=== PATIENT | male | born 1970 | race Caucasian/White ===

== ENCOUNTER 2019-10-31 15:13 | Outpatient (CLI) | payer MEDICARE, MEDICAID, SELFPAY ==
[2019-10-31 17:41] LABS: Erythrocyte Sedimentation Rate 35 mm/hr (0-10)
[2019-10-31 19:04] LABS: C Reactive Protein 6.8 mg/L (0.0-4.9)
[2019-11-20 15:38] LABS: Miscellaneous Test SEE SCANNED
[2019-11-20 15:39] LABS: Miscellaneous Test SEE SCANNED
== END 2019-10-31 15:14 | disposition home or self-care (01) ==
PROVIDERS: Family Provider Internal Medicine; PCP Internal Medicine; Visit Provider Internal Medicine Critical Care Medicine
DX: I25.5 Ischemic cardiomyopathy (principal)
CPT/HCPCS: 36415; 83516; 85651; 86140; 86431

== ENCOUNTER 2020-01-02 09:50 | Observation (INO) | payer MEDICARE, MEDICAID, SELFPAY ==
[2019-12-31 12:17] LABS: Basophils # 0.1 10^3/uL (0.0-0.1); Basophils % 0.6 %; Eosinophils # 0.2 10^3/uL (0.0-0.8); Eosinophils % 2.1 %; Hematocrit 35.6 % (42.0-52.0); Hemoglobin 11.4 g/dL (11.7-16.6); Lymphocytes # 0.8 10^3/uL (0.8-4.8); Lymphocytes % 9.1 %; Mean Corpuscular Hemoglobin 34.1 pg (28.0-34.0); Mean Corpuscular Volume 106.6 fL (80-94); Mean Platelet Volume 9.3 fL (7.4-10.4); Monocytes # 0.8 10^3/uL (0.2-0.9); Neutrophils # 6.8 10^3/uL (1.8-7.7); Nucleated Red Blood Cells % 0 %; Platelet Count 147 10^3/cmm (130-400); Red Blood Count 3.34 10^6/uL (4.1-5.3); White Blood Count 8.6 10^3/uL (4.0-10.0)
[2019-12-31 12:34] LABS: INR 1.12 (0.8-1.2)
[2019-12-31 12:42] LABS: Anion Gap 21.4 (5-19); Blood Urea Nitrogen 54 mg/dL (6-20); Carbon Dioxide 23 mmol/L (22-29); Chloride 98 mmol/L (98-107); Glomerular Filtration Rate 6.4 mL/min (90-130); Glucose 152 mg/dL (65-115); Osmolality Calculated 287 mOsm/kg (285-295); Potassium 4.4 mmol/L (3.5-5.1); Sodium 138 mmol/L (136-145)
[2020-01-02] VITALS (23 sets, daily range): BP systolic 134–163; BP diastolic 90–107; PULSE 73–95; RESP 4–24; TEMP 36.4–36.8; O2SAT 90–99; BMI 25.0
--- NOTE | 2020-01-02 07:52 | XACV_ITS ---
Ht: 178 cm Wt: 79 kg BSA: 1.98 m2 Gender: Male : 1970 Any Known Allergies: Other Exam Priority: Routine Procedure(s): Procedure Description: Diagnostic procedure Procedure Description: Left Heart Catheterization Procedure Description: Right Heart Catheterization Procedure Description: Left ventriculography Procedure Description: Cardiac Output Procedure Description: O2 saturation Procedure Description: Coronary Angiography Procedure Description: Pressure Wire Diagnostic Cath Status: Elective Diagnostic Findings No significant disease noted in the Left Main, LAD, Circumflex, or RCA coronary arteries. Coronary angiography shows right dominance. The left main is a medium caliber vessel with no significant stenotic lesions. The left anterior descending artery is a medium to large caliber vessel which appears to wrap around the left ventricular apex. The proximal LAD was found to have moderate diffuse disease of around 50 to 60%. The first diagonal artery was found to have tubular narrowing of around 40 to 50% proximally. The mid LAD was found to have a proximal stented segment which was widely patent. Around the LV apex, the artery was found to have around 40 to 50% segmental narrowing. No other significant stenotic lesions were noted. The intermedius artery is a medium to large caliber vessel with mild diffuse disease proximally. The circumflex artery is a medium caliber nondominant vessel which was found to have around 50% diffuse irregular narrowing proximally. The distal artery was found to have mild diffuse intimal irregularities. No significant stenotic lesions were noted. The right coronary artery is a medium caliber vessel which was found to have 20 to 30% diffuse irregular narrowing with no significant stenotic lesions. Conclusions This is a 49-year-old white male with history of coronary artery disease, status post PCI of the LAD, end-stage renal disease, on hemodialysis, presenting with progressive shortness of breath. Echocardiogram revealed left ventricular ejection fraction of around 30%. A repeat cardiac catheterization was recommended to reevaluate the coronary arteries and LV function, to decide on further management. Patient underwent left and right heart catheterization with a left and right coronary angiogram and LV angiogram today. Findings are as follows. Moderate diffuse disease in the proximal LAD, first diagonal and the circumflex artery. Patent stented segment of the mid LAD. Mild to moderate diffuse disease in the other vessels. The LV cavity appears to be moderately dilated. There is severe diffuse hypokinesia of the left ventricle. The LV ejection fraction was around 25 to 30%. The LVEDP was 27 mmHg. There was mild mitral regurgitation. No significant mitral valve prolapse. The right heart catheterization revealed moderate pulmonary hypertension. The PA pressure was 63/27 with a mean of 41. Pulmonary treatments pressure was 19 mmHg. The right atrial pressure was 10. Cardiac output was 4.17 with an index of 2.0. Recommendations Continue current medical management and risk factor modification. Diagnostic RX Recommendation: medical therapy and/or counseling LV EDP: 27 mmHg Ejection Fraction: 25.0 % Left Ventriculography Findings: The LV cavity appears to be moderately dilated. There is severe diffuse hypokinesia of the left ventricle. The LV ejection fraction was around 25 to 30%. The LVEDP was 27 mmHg. There was mild mitral regurgitation. No significant mitral valve prolapse. Pressures Phase:Rest AO : 108 mmHg / 76 mmHg ( 91 mmHg ) @ 4:21:00 AM 110 mmHg / 77 mmHg ( 92 mmHg ) @ 4:27:00 AM 136 mmHg / 77 mmHg ( 100 mmHg ) @ 4:31:00 AM 140 mmHg / 77 mmHg ( 102 mmHg ) @ 4:31:00 AM LV : 133 mmHg / -4 mmHg / @ 4:30:00 AM 133 mmHg / -4 mmHg / @ 4:31:00 AM 134 mmHg / -4 mmHg / @ 4:31:00 AM RV : 58 mmHg / -1 mmHg / @ 4:13:00 AM PA : 58 mmHg / 22 mmHg ( 35 mmHg ) @ 4:11:00 AM 63 mmHg / 27 mmHg ( 41 mmHg ) @ 4:12:00 AM RA : a wave = v wave = mean = 10 mmHg @ 4:13:00 AM Hemodynamic Findings Right heart catheterization was performed using a double-lumen balloon tipped catheter. The right atrial pressure was 10. RV pressure was 58/-2. The PA pressure was 63/27 with a mean of 41. Pulmonary capillary wedge pressure was 19 mmHg. Cardiac output was calculated to be 4.17 by Bg's with an index of 2.0. O2 Content Phase:Rest PA : O2 Content O2: 53.2 % @ 4::00 AM Saturations Phase:Rest AO : 91 % @ 4:21:00 AM RA : 54 % @ ::00 AM RV : 60 % @ ::00 AM PA : 53 % @ ::00 AM Cardiac Output Phase:Rest Bg : 4 l/min @ ::00 AM Bg Cardiac Index: 2 L/min/m2 @ 4:21:00 AM Valves Phase:DefaultPhase AV : 0.0 mmHg @ 9:42:35 AM AV Mean Gradient: 0.0 mmHg @ 9:42:35 AM Clinical Evaluation EBL: 5mL-10mL Procedural Details Procedure Consent Obtained. Pre-Procedure Time Out. Identified patient by full name and date of as verbalized by the patient/guarantor. Does the consent match the physician's order: Yes. Accurate & Complete Informed Consent: Yes. Inpatient/Outpatient History & Physical on Chart: Yes. If H&P is completed, is and addenduem needed: N/A; If yes, is the addendum complete: N/A. Visualize and Verify Site with Patient/Guarantor: N/A. Relevant Radiology Images available: Yes. Pre-op teaching completed and patient verbalized understanding. The risks, benefits, and alternatives of sedation and/or procedure were discussed by physician. The patient agrees to continue. Procedure started. Correct patient, site and procedure confirmed by cath team. PERRLA. Strong, equal hand profiling machine set up operator bilaterally. Lungs clear x 5 lobes. IV Fluids: 0.9% NaCl at KVO. 0 mL infused prior to lab director. Pre Procedural Pulses: bilateral dorsalis pedis was 2+. Pre Procedural Pulses: bilateral posterior tibial was 2+. Pre Procedural Pulses: bilateral radial was 3+. IV Site on Arrival: 18 gauge in the right anticubital. bilateral groins was prepped with chloroprep then draped in the usual sterile fashion. Physician notified. Equipment: 6F - Femoral. Cardiac Cath Pack. ACIST Manifold Kit Model BT 2000. Heparinized Saline (2 units/mL), 1000 mL bag. Kit, Micropuncture. pt on roomair. Baseline sample Acquired. HR: [address] Landis notified of creatinine 9.1 and potassium 3.8. Physician arrived. Physician scrubbed in. Immediate Pre-Procedure Time Out. Correct Patient: Yes; Correct Procedure: Yes; Correct Site: Yes; Correct Patient Position: Yes; Correct Supplies: Yes; Dried Flammable Prep: Yes; Blood Products Available: No;. Lidocaine 1% infiltrated to the right groin. Venous access obtained with a micropuncture set. Arterial access obtained with micropuncture set. Onida-Shantell MON catheter inserted. glidewire inserted through swan catheter. Inventory is TR Glidewire Angled .025 180cm. wire out. Onida-Shantell out. A 5 icelandic JL4 catheter in over wire. Multiple views taken of left coronary artery. pt placed on 3 lpm nc. Catheter out. A 5 icelandic JR4 catheter in over wire. Multiple views taken of right coronary artery. Catheter out. A 5 icelandic Angled Pig catheter in over wire. EDP Sample taken: LV 133/-5,28; HR: 86 BPM; SpO2: 89%. LV gram performed in COELLO @ 10 mL/second for a total of 30 mL. EDP Sample taken: LV 133/-5,28; HR: 83 BPM; SpO2: 94%. Pullback taken: LV 134/-5,28; AO 136/77(100); Mean: 0mmHg, Peak to Peak: 0mmHg, SEP: 21sec/min; HR: 82 BPM; SpO2: 96%. ACT drawn. Results 137 seconds. Therapeutic limits - pre-heparin administration 90-150 seconds and monitoring heparin during a vascular procedure >250 seconds. Catheter out. Sheath(s) sutured into position with 2-0 silk and sterile 4x4's and Op-site applied over the site. No oozing or signs and symptoms of hematoma noted. Arterial sheath flushed and connected to tranducer and pressure bag with heparinized saline. A Suture was successful obtaining hemostatsis at the Right Femoral vein insertion site. A Suture was successful obtaining hemostatsis at the Right Femoral artery insertion site. Post Procedure: Pulses reassessed and unchanged. PERRLA. Strong, equal hand profiling machine set up operator bilaterally. No VTE prophylaxis required. Medication's Wasted: Heparin = 2500 units. Medication's Wasted: Other = versed 1 mg. Medication's Wasted: Other = fentanyl 50 mg. Total IV fluids: 75 mL. Fluoro: 8:07. Contrast type used: Omnipaque 300 mgI/mL, 500 mL bottle. [id number]. Post-op diagnosis: patient stent moderate CAD pulmonary hypertension. Complications: none. Estimated blood loss: 5mL-10mL. Procedure completed. Patient transferred by bed to ICU. [facility] Clinical Fraility Score: 4: Vulnerable. Reagent Tender Helper Indications: Cardiomyopathy. Chest Pain Symptom Assessment: Atypical Angina. Cardiovascular Instability: No. Vital chart was stopped. Site: Right Femoral artery Sheath Size: 5 Fr Hemostasis Method: Suture Hemostasis Success: Successful Site: Right Femoral vein Sheath Size: 6 Fr Hemostasis Method: Suture Hemostasis Success: Successful Procedure Medications Start: 8:58 AM Stop: 8:58 AM Medication: Versed Amount: 1 mg Route: I.V. Start: 8:58 AM Stop: 8:58 AM Medication: Fentanyl Amount: 50 mcg Route: I.V. I, the attending physician, have reviewed and verified all procedure medications. Yes, all medications given per verbal order History/Risk Factors Hypertension: Yes Dyslipidemia: Yes Peripheral Arterial Disease (PAD): No Myocardial Infarction ([place]): Yes Obesity: No Renal Disease: Yes Tobacco Use: Former Dialysis: Current Prior Interventions PCI: Yes CABG: No Valve Surgery: No Date of PCI: 03/16/2015 Report Signatures Finalized by:Dr Isauro Landis MD [facility] on 01/02/2020 6:08:51 PM
[2020-01-02] MEDS: diphenhydrAMINE 50 mg Capsule PO (08:07)
--- NOTE | 2020-01-02 08:14 | PM.OPSURHP ---
Providers/Chief Complaint Admitting Physician: IONA Landis MD Primary Care Provider: Michael Eubanks DO Chief Complaint: NO DX LISTED WILL TRY TO FIND History of Present Illness Marlon Dorantes is a 49 year old male has a history of cardiomyopathy, congestive heart failure, dyslipidemia, end-stage renal disease, on hemodialysis. Etiology of the LV dysfunction is not clear. He had the most recent cardiac catheterization 2014. The findings are as follows He had the most recent a coronary angiogram on 03/16/2015. He was found to have 1-Normal LM 2-Mid LAD has 100% Occlusion. 9-Xysxanwx-1 has 40% stenosis 4-LCx has luminal irregularities 5-RCA has mid 30% stenosis , sluggish flow in RCA is due to endothelial dysfunction . He underwent PCI to mid LAD . His LV ejection fraction was found to be 30% by echocardiogram. For further evaluation of his coronary status as well as the hemodynamics, a right and left heart catheterization with right and left coronary angiogram and LV angiogram is recommended. Review of Systems Narrative: CONSTITUTIONAL: No fever or chills. EYES: No blurring of vision or other visual disturbances lately. ENT: No hoarseness of voice, auditory disturbances or sore throat. CARDIOVASCULAR: As mentioned above. RESPIRATORY: Shortness of breath and history of hemoptysis. GASTROINTESTINAL: No hematemesis or melena. GENITOURINARY: No dysuria or hematuria. INTEGUMENTARY: No skin rashes or history of skin cancer. NEURO: No transient ischemic attacks or amaurosis. PSYCHIATRIC: No history of psychosis or major depression. HEMATOLOGIC: Mild chronic anemia ENDOCRINE: No history of polyuria or polydipsia. MUSCULOSKELETAL: No recent joint pain or swelling. ALLERGY/IMMUNOLOGY: As mentioned above. Medications/Allergies Home Medications Medication Instructions Recorded Confirmed Last Taken Type calcitriol See Rx Instructions .ROUTE .COMPLEX 01/01/20 01/01/20 Unknown History clonidine HCl 0.1 mg PO DAILY PRN 01/01/20 01/01/20 Unknown History gabapentin 100 mg PO BID 01/01/20 01/01/20 Unknown History metoclopramide HCl [Reglan] 10 mg PO Q6H PRN 01/01/20 01/01/20 Unknown History Allergies Allergy/AdvReac Type Severity Reaction Status Date / Time azithromycin Allergy ADR-Chest Verified 01/01/20 15:53 Pain carvedilol AdvReac ADR-Dizzine Verified 01/01/20 15:52 ss PFSH PFSH: Medical History Atherosclerotic heart disease of [place] coronary artery without angina pectoris Benign essential hypertension Cardiomyopathy CHF NYHA class III (symptoms with mildly strenuous activities) Diabetes mellitus Dyslipidemia Fistula Left Wrist Headache Hemoptysis Mixed hyperlipidemia Nicotine dependence, cigarettes, uncomplicated Non-ST elevation (NSTEMI) myocardial infarction Surgical History H/O elbow surgery H/O hand surgery H/O neck surgery History of back surgery History of intravascular stent placement Family History Grandmother , In her 50's Myocardial infarction Father Diabetes Mother Diabetes Social History Smoking and tobacco status: former smoker Quit status (tobacco): has quit using tobacco Year quit tobacco: 1999 - 2PPD x 20 Years Alcohol intake: current Alcohol intake frequency: holidays/special occasions only Household members: spouse Marital status: Current occupational status: disabled History of recent travel: No Current gender identity: Male Vital Signs Weight: Weight last 48 hrs Weight 174 lb Physical Exam Narrative: EXAM NARRATIVE: GENERAL: The patient is alert and oriented times three. Not in any acute distress. HEENT: No significant pallor, icterus or lymphadenopathy.Oral cavity: There are no mucous membrane lesions. NECK: Trachea appears to be central. No masses noted. No JVD or thyromegaly appreciated. RESPIRATORY: Chest is symmetrical. No intercostals muscle retraction or any accessory muscle activation. There is no chest wall tenderness. Breath sounds are heard bilaterally. No rales or rhonchi heard. No evidence of any consolidation. BREASTS: Deferred. HEART: The heart sounds are normal. No S3 or S4. Short systolic murmur lower sternal border of grade 3/6. No diastolic murmurs.. No pericardial rub ABDOMEN: No vessel pulsations or distention. No tenderness. No organomegaly appreciated. Bowel sounds are normally heard. : Deferred. RECTAL: Deferred. LYMPHATIC: No lymphadenopathy noted in the neck or groin. EXTREMITIES: No edema or cyanosis. No clubbing. Peripheral pulses are palpated in fairly good volume and amplitude MUSCULOSKELETAL: No acute joint deformities or swelling SKIN: There are no significant scars or skin rash noted. NEUROPSYCHIATRIC: The patient is alert and oriented x3. Appears to be in a good mood. No tremors or rigidity noted. A&P Assessment and plan (1) Atherosclerotic heart disease of [place] coronary artery without angina pectoris: Because of the worsening LV systolic function, possibility of progression of the underlying coronary disease was considered. For further evaluation, a repeat coronary angiogram was recommended. The risk of bleeding, hematoma, vascular injury, myocardial infarction, CVA, acute renal failure and other concomitant complications were explained in detail. In view of his end-stage renal disease, he requires hemodialysis after the angiogram. I discussed the plan with Dr. Davis who is his grain and yeast plants supervisor. He recommended dialysis within 24 hours after the procedure. Status: Acute Qualifiers: [place] vs. transplanted heart: [place] heart Qualified Code(s): I25.10 - Atherosclerotic heart disease of [place] coronary artery without angina pectoris Code(s): I25.10 - Atherosclerotic heart disease of [place] coronary artery without angina pectoris (2) CHF NYHA class III (symptoms with mildly strenuous activities): Currently the heart failure is stable. No evidence of decompensation. Will continue on the current medications. Status: Acute Qualifiers: Congestive heart failure type: systolic Congestive heart failure chronicity: chronic Qualified Code(s): I50.22 - Chronic systolic (congestive) heart failure Code(s): I50.9 - Heart failure, unspecified (3) ESRD (end stage renal disease): Patient is on hemodialysis 4 times a week at home. We will continue the same. Status: Acute Code(s): N18.6 - End stage renal disease (4) Mixed hyperlipidemia: Continue on the current medications. Status: Acute Code(s): E78.2 - Mixed hyperlipidemia Additional A&P Information Based on the clinical progress and the rest was able, further management decisions will be made. Coding Level of Care Code Acute Turning And Beading Machine Operator for Ger Godfrey Diagnoses Atherosclerotic heart disease of [place] coronary artery without angina pectoris I25.10 [place] vs. transplanted heart: [place] heart CHF NYHA class III (symptoms with mildly strenuous activities) I50.22 Congestive heart failure type: systolic Congestive heart failure chronicity: chronic ESRD (end stage renal disease) N18.6 Mixed hyperlipidemia E78.2
[2020-01-02 08:39] LABS: Anion Gap 21.8 (5-19); Blood Urea Nitrogen 57 mg/dL (6-20); Calcium 9.5 mg/dL (8.5-10.5); Carbon Dioxide 25 mmol/L (22-29); Chloride 97 mmol/L (98-107); Glomerular Filtration Rate 6.2 mL/min (90-130); Glucose 133 mg/dL (65-115); Osmolality Calculated 291 mOsm/kg (285-295); Potassium 3.8 mmol/L (3.5-5.1); Sodium 140 mmol/L (136-145)
[2020-01-02] MEDS: fentaNYL 50 mcg/mL INJ 2mL IVP (10:42)
--- NOTE | 2020-01-02 11:21 | PC.NURSE ---
pulled arterial and venous sheaths at 1050 - held pressure until 1110. Pt tolerated well.
--- NOTE | 2020-01-02 13:09 | P.CONIM_ITS ---
Providers/Reason For Consult Consulting Physican/Specialty*: telenephrology Reason for Consult*: esrd care Attending Physician: Isauro Landis MD Primary Care Provider: Michael Eubanks DO History of Present Illness History of Present Illness Marlon Dorantes is a 49 year old male w/ chronic diastolic and systolic CHF- EF of 30%, ESRD, LAD disease, hyperlipidemia. Pt had cath today. he does home hemodialysis on sun, mon, wed, and tue. Dr. Davis, his district court justice wanted him to get dialysis post cath, so renal was called. Review of Systems Narrative: inc cp and sob. no n/v/f/c/hunter/d/itching, leg pains. Meds/Allergies Home Medications and Allergies Home Medications Medication Instructions Recorded Confirmed Type amlodipine 10 mg tablet 10 mg PO DAILY 10/31/19 01/02/20 History aspirin 81 mg tablet,delayed 81 mg PO DAILY 10/31/19 01/02/20 History release ferric citrate 210 mg iron tablet 420 mg PO TID 10/31/19 01/02/20 History furosemide 20 mg tablet 60 mg PO QAM tab 10/31/19 01/02/20 History gabapentin 300 mg capsule 300 mg PO TID 10/31/19 01/02/20 History nitroglycerin 0.4 mg sublingual 0.4 mg SUBLINGUAL Q5M PRN 10/31/19 01/02/20 History tablet oxycodone-acetaminophen 5 mg-325 1 tab PO BID PRN tab 10/31/19 01/02/20 History mg tablet metoprolol tartrate 50 mg tablet 50 mg PO DAILY tab 11/09/19 01/02/20 History vitamin B complex with vit C-folic 1 tab PO DAILY tab 11/09/19 01/02/20 History acid 800 mcg-zinc 12.5 mg tablet calcitriol See Rx Instructions .ROUTE .COMPLEX 01/01/20 01/02/20 History clonidine HCl 0.1 mg PO DAILY PRN 01/01/20 01/02/20 History metoclopramide HCl [Reglan] 10 mg PO Q6H PRN 01/01/20 01/02/20 History gabapentin 300 mg PO TID 01/02/20 01/02/20 History Allergies Allergy/AdvReac Type Severity Reaction Status Date / Time azithromycin Allergy ADR-Chest Verified 01/02/20 08:27 Pain carvedilol AdvReac ADR-Dizzine Verified 01/02/20 08:27 ss Current Medications Current Medications Generic Name Dose Route Start Last Admin Trade Name Krissy PRN Reason Stop Dose Admin Fentanyl 50 mcg 01/02/20 09:46 01/02/20 10:42 Sublimaze IVP 50 mcg PRN PRN Administration Prior to sheath removal Sodium Chloride 1,000 mls @ 50 mls/hr 01/02/20 07:53 01/02/20 08:16 Sodium Chloride 0.9% IV 01/03/20 03:52 Not Given .Q20H ONE Metoprolol Tartrate 50 mg 01/02/20 09:45 01/02/20 10:37 Lopressor PO Not Given DAILY JANNET PFSH Acute PFSH: Medical History Atherosclerotic heart disease of [place] coronary artery without angina pectoris Benign essential hypertension Cardiomyopathy CHF NYHA class III (symptoms with mildly strenuous activities) Diabetes mellitus Dyslipidemia Fistula Left Wrist Headache Hemoptysis Mixed hyperlipidemia Nicotine dependence, cigarettes, uncomplicated Non-ST elevation (NSTEMI) myocardial infarction Surgical History H/O elbow surgery H/O hand surgery H/O neck surgery History of back surgery History of intravascular stent placement Family History Grandmother , In her 50's Myocardial infarction Father Diabetes Mother Diabetes Social History Smoking and tobacco status: former smoker Quit status (tobacco): has quit using tobacco Year quit tobacco: 1999 - PD x 20 Years Alcohol intake: current Alcohol intake frequency: holidays/special occasions only Household members: spouse Marital status: Current occupational status: disabled History of recent travel: No Current gender identity: Male Vitals/I&O/Wt Last Vital Signs Temp 97.6 F 01/02/20 09:57 Pulse 75 01/02/20 11:30 Resp 17 01/02/20 11:30 BP 135/90 01/02/20 11:30 Pulse Ox 98 01/02/20 11:30 01/01/20 01/02/20 01/02/20 22:59 06:59 14:59 Intake Total 0 / 0 Balance 0 / 0 Weight last 48 hrs Weight 78.925 kg Physical Exam Narrative: EXAM NARRATIVE: comfortable, NARD, VSS heent- nc/at, eomi, anicteric neck supple lungs clear heart reg, w/ ROCAEL abd soft ext no edema neuro- a,a, o x 3 =LUE AVF w/ thrill and bruit A&P Additional A&P Information 49 yr old man ESRD on home HD. he is s/p cath and Dr. Landis and Ryan Schaefer wants the pt dialyzed post cath- will dialyze for 3 hrs, no heparin, 3 k and remove 1.5 l htn -consider dec meds and allow for a lower EDW- to be determined by his primary care doc, Dr. Davis- his district court justice, and Dr. Landis of cardiology Consult Attestations Medical Necessity Statement: per cardiology Time Spent in Patient Care: 16 - 35 minutes Coding Level of Care Code Acute Welding Machine Operator/Tender for Ger Godfrey
[2020-01-02 14:59] LABS: Hepatitis C Virus Antibody Non-Reactive (Nonreactive)
[2020-01-02 15:00] LABS: Hepatitis B Surface AB. 49.4 (0-8.5)
[2020-01-02 15:01] LABS: Hepatitis B Surface Antigen. Non-Reactive (Nonreactive)
[2020-01-02] MEDS: gabapentin 300 mg Capsule PO ×2 (17:49→20:37)
[2020-01-02] MEDS: oxyCODONE-APAP 5-325 mg Tablet 1 TAB PO (19:21)
[2020-01-02] MEDS: hyDRALAzine 25 mg Tablet PO (20:37)
[2020-01-03] VITALS (11 sets, daily range): BP systolic 140–156; BP diastolic 86–100; PULSE 91–99; RESP 10–22; TEMP 36.8–37.4; O2SAT 89–96
--- NOTE | 2020-01-03 03:42 | PC.NURSE ---
called Dr. Alvarado for transfer orders to [facility] because of lack of beds on CSU. Dr. Alvarado okayed for patient to be transferred to [facility] on telemetry.
[2020-01-03] MEDS: oxyCODONE-APAP 5-325 mg Tablet 1 TAB PO ×2 (04:34→17:12)
[2020-01-03] MEDS: FUROsemide 20 mg Tablet 60 MG PO (06:30)
--- NOTE | 2020-01-03 08:03 | XR_ITS ---
WS: [id number] Portable AP upright chest, 01/03/2020 Clinical Data: cp Comparison: Portable chest, 10/02/2019. Findings: There is a peripheral opacity in the right lower lung which could represent pneumonia. Ther e is a small right effusion. There is probable atelectasis over the surface of the left diaphragm. Th e pulmonary vascularity is not increased. The upper lobes are clear. No nodules or masses are seen. T he heart is enlarged. There is a radiopaque density overlying the C6 and C7 vertebral bodies which ma y represent a disc fusion. Monitor leads on the chest wall. XR/XR chest 1V portable [id number] Impression: 1. Peripheral right lower lobe opacity which could represent pneumonia along wi th small right effusion. 2. Probable atelectasis or possible early pneumonia over surface of left diaphr agm. 3. Cardiomegaly.
[2020-01-03] MEDS: gabapentin 300 mg Capsule PO ×3 (08:07→20:27)
[2020-01-03] MEDS: aspirin 81 mg EC Tablet PO (08:07)
[2020-01-03] MEDS: hyDRALAzine 25 mg Tablet PO ×3 (08:07→20:26)
[2020-01-03] MEDS: metoprolol tartrate 50 mg Tablet PO (08:07)
--- NOTE | 2020-01-03 09:09 | PC.NURSE ---
pt c/o cp this morning rating 7/[address]. chest xray and labs ordered. vs stable. bp 148/93.
[2020-01-03 09:23] LABS: Blood Urea Nitrogen 39 mg/dL (6-20); Carbon Dioxide 25 mmol/L (22-29); Chloride 96 mmol/L (98-107); Glomerular Filtration Rate 7.5 mL/min (90-130); Glucose 110 mg/dL (65-115); Osmolality Calculated 280 mOsm/kg (285-295); Sodium 136 mmol/L (136-145)
--- NOTE | 2020-01-03 10:40 | PM.PN ---
Subjective Subjective: Interval history: He has some chest discomfort today; no SOB, no uremic Sx, dialyzed yesterday. Vitals/I&O/Wt Last Vital Signs Temp 98.3 F 01/03/20 07:19 Pulse 99 01/03/20 07:19 Resp 18 01/03/20 07:19 BP 148/93 01/03/20 07:19 Pulse Ox 92 01/03/20 07:19 01/02/20 01/03/20 01/03/20 22:59 06:59 14:59 Intake Total 480 / 480 0 / 480 Output Total 250 / 250 Balance 480 / 480 -250 / 230 Weight last 48 hrs Weight 78.925 kg Physical Exam Narrative: EXAM NARRATIVE: comfortable, NARD, VSS heent- nc/at, eomi, anicteric neck supple lungs clear heart reg, w/ ROCAEL abd soft ext no edema neuro- a,a, o x 3 =LUE AVF w/ thrill and bruit Extremity: RIGHT UPPER EXTREMITY: Yes wrist (Well-functioning right radiocephalic fistula) Data : 12/31/19 12:05 01/03/20 08:49 A&P Additional A&P Information 1. ESRD - if he remains in house tomorrow will dialzye him but we anticipate that he will be discharged 2. Hemodynamics, lytes, anemia, bone metabolism of ESRD - all reviewed, stable parameters, follow up in outpatient dialysis clinic 3. CAD; angiogram performed, mgmt per cardiology, Dr Landis Attcandy Medical Necessity Statement*: mgmt of ESRD Coding Level of Care Code Acute Senior Electrical Project Manager for Chg Fwd Exam Problem Focused
--- NOTE | 2020-01-03 11:57 | PC.CHAP ---
Pastoral Care Encounter/Spiritual Assessment Type of Contact [] Declined collections technician visit [] Patient/Family/Request visit [] Outpatient visit [] Follow-up visit [] Physician referral [] Code/Alert [x] Routine visit [] Staff referral [] Actively dying [] Patient sleeping [] Family support [] [] Out of room [] Palliative care [] [] Receiving care in room [] Pre-surgical visit [] Trauma [] Long length of stay [] ICU visit [] Other: Relational/Emotional Strength [x] Patient feels connected with others/family/visitors/staff [] Distress [] Loneliness/isolation [] Abandonment Spirituality of Patient [] Person of Ashley [] Attends Religious of their Ashley [] Believes in Prayer [] Reads Bible or Taoist materials [x] There are Spiritual issues to be addressed Self Defense Instructor Interventions [x] Prayer [x] Active listening [x] Non-anxious presence [x] Spiritual/emotional support [] Crisis/trauma care [x] Spiritual counseling [] Bereavement support [] Provided bereavement packet [] Provided Bible/devotional materials [] Provided toy/stuffed animal, coloring book to patient or family member [] Provided Communion [] Anointing/[place] [] Salvation [] Completed spiritual assessment [] Other: Impact on Illness or Injury [] Angry [] Fearful [] Anxious [] Often cries [] Exhaustion [] Unable to work [] Unable to attend anglican [] Unable to walk/stand [] Unable to read [] Unable to drive [] Unable to eat/drink [] Unable to sleep [] Unable to be with family [] Patient intubated [x] Other: Summary Patient demonstrated knowledge of the Lord and sought greater understanding. The Gospel of [place] was given. Time spent with patient 25 minutes
--- NOTE | 2020-01-03 15:50 | P.PN_ITS ---
Subjective Subjective: Interval history: Patient is complaining of pleuritic type of pain in the right chest. He has a cough and shortness of breath. Patient seems to think that he may have pneumonia. He has no fever or chills. His vital signs are fairly stable. His oxygen saturation is relatively low-has been 89-92 over the last 6 hours Medications: Reviewed: Yes Medication Review Details: Current Medications Alprazolam (Xanax) 0.25 mg PO TID PRN PRN Reason: ANXIETY Amlodipine Besylate (Norvasc) 10 mg PO DAILY COUNTS INCLUDE 234 BEDS AT THE [facility] Last Admin: 01/03/20 08:09 Dose: Not Given Documented by: Amoxicillin/Clavulanate Potassium (Augmentin 875-125 Mg) 1 tab PO BID COUNTS INCLUDE 234 BEDS AT THE [facility]; Protocol Stop: 01/10/20 17:59 Aspirin (Aspirin Ec) 81 mg PO DAILY COUNTS INCLUDE 234 BEDS AT THE [facility] Last Admin: 01/03/20 08:07 Dose: 81 mg Documented by: Atropine Sulfate (Atropine) 0.5 mg IVP PRN PRN PRN Reason: Symptomatic bradycardia Clonidine HCl (Catapres) 0.1 mg PO DAILY PRN PRN Reason: Hypertension Fentanyl (Sublimaze) 50 mcg IVP PRN PRN PRN Reason: Prior to sheath removal Last Admin: 01/02/20 10:42 Dose: 50 mcg Documented by: Furosemide (Lasix) 60 mg PO QAM COUNTS INCLUDE 234 BEDS AT THE [facility] Last Admin: 01/03/20 06:30 Dose: 60 mg Documented by: Gabapentin (Neurontin) 300 mg PO TID COUNTS INCLUDE 234 BEDS AT THE [facility] Last Admin: 01/03/20 15:06 Dose: 300 mg Documented by: Hydralazine HCl (Apresoline) 25 mg PO TID COUNTS INCLUDE 234 BEDS AT THE [facility] Last Admin: 01/03/20 15:06 Dose: 25 mg Documented by: Metoclopramide HCl (Reglan) 10 mg PO Q6H PRN PRN Reason: Nausea Metoprolol Tartrate (Lopressor) 50 mg PO DAILY COUNTS INCLUDE 234 BEDS AT THE [facility] Last Admin: 01/03/20 08:07 Dose: 50 mg Documented by: Naloxone HCl (Narcan) 0.1 mg IVP Q2M PRN PRN Reason: RESPIRATORY RATE < 8/MIN Nitroglycerin (Nitrostat) 0.4 mg SUBLINGUAL Q5M PRN PRN Reason: Pain Non-Formulary Medication (Ferric Citrate [Auryxia]) 420 mg PO TID COUNTS INCLUDE 234 BEDS AT THE [facility] Non-Formulary Medication (Vit B Fnqfows-G-Aibkk Ac-Zinc [Renaplex]) 1 tab PO DAILY JANNET Oxycodone/Acetaminophen (Percocet 5-325 Mg) 1 tab PO BID PRN PRN Reason: Pain Last Admin: 01/03/20 04:34 Dose: 1 tab Documented by: Temazepam (Restoril) 15 mg PO BEDTIME PRN PRN Reason: INSOMNIA Vitals/I&O/Wt Last Vital Signs Temp 99.4 F 01/03/20 15:25 Pulse 95 01/03/20 15:25 Resp 20 H 01/03/20 10:50 BP 154/91 01/03/20 15:25 Pulse Ox 90 01/03/20 15:25 01/03/20 01/03/20 01/03/20 06:59 14:59 22:59 Intake Total 0 / 480 360 / 360 Output Total 250 / 250 Balance -250 / 230 360 / 360 Weight last 48 hrs Weight 174 lb Physical Exam Narrative: EXAM NARRATIVE: GENERAL: The patient is alert and oriented times three. Not in any acute distress. HEENT: No significant pallor, icterus or lymphadenopathy.Oral cavity: There are no mucous membrane lesions. NECK: Trachea appears to be central. No masses noted. No JVD or thyromegaly appreciated. RESPIRATORY: Chest is symmetrical. No intercostals muscle retraction or any accessory muscle activation. There is no chest wall tenderness. Breath sounds are heard bilaterally. No rales or rhonchi heard. No evidence of any consolidation. BREASTS: Deferred. HEART: The heart sounds are normal. No S3 or S4. Systolic murmur of grade 3/6 in the left sternal border. No diastolic murmurs. No pericardial rub. ABDOMEN: No vessel pulsations or distention. No tenderness. No organomegaly appreciated. Bowel sounds are normally heard. : Deferred. RECTAL: Deferred. LYMPHATIC: No lymphadenopathy noted in the neck or groin. EXTREMITIES: No edema or cyanosis. No clubbing. Right groin has no hematoma or bleeding MUSCULOSKELETAL: No acute joint deformities or swelling SKIN: No significant rashes NEUROPSYCHIATRIC: The patient is alert and oriented x3. Appears to be in a good mood. No tremors or rigidity noted. Data : 12/31/19 12:05 01/03/20 08:49 CXR: Radiologist's impression: 1. Peripheral right lower lobe opacity which could represent pneumonia along with small right effusion. 2. Probable atelectasis or possible early pneumonia over surface of left diaphragm. 3. Cardiomegaly. A&P Assessment and plan (1) Right-sided chest pain: Etiology is unclear. Possible pneumonia. Pulmonary embolism is a consideration. Relatively low oxygen level with no fever may suggest a PE. However he also is complaining of sore throat may suggest a viral syndrome as well. I discussed the case with Dr. Macias. It may be appropriate at this time to do a VQ scan to further evaluate for possible PE. Dr. Macias also recommended empiric antibiotic treatment for possible pneumonia We will do a CBC Status: Acute Code(s): R07.9 - Chest pain, unspecified (2) Atherosclerotic heart disease of [place] coronary artery without angina pectoris: Cardiac catheterization n findings as mentioned in the report. He has moderate disease in the proximal segment of all the 3 coronary arteries. Moderate pulmonary hypertension with a mean PA pressure of 41 mmHg Status: Acute Qualifiers: [place] vs. transplanted heart: [place] heart Qualified Code(s): I25.10 - Atherosclerotic heart disease of [place] coronary artery without angina pectoris Code(s): I25.10 - Atherosclerotic heart disease of [place] coronary artery without angina pectoris (3) Hemoptysis: No recurrence of hemoptysis in the hospital. Dr. Troy is considering a lung biopsy. Status: Acute Code(s): R04.2 - Hemoptysis (4) ESRD (end stage renal disease): Patient is on hemodialysis 4 times a week. May require a repeat dialysis tomorrow Status: Acute Code(s): N18.6 - End stage renal disease (5) Cardiomyopathy: Patient seems to have some form of nonischemic cardiomyopathy. May require furhter evaluation Status: Acute Qualifiers: Cardiomyopathy type: ischemic Qualified Code(s): I25.5 - Ischemic cardiomyopathy Code(s): I42.9 - Cardiomyopathy, unspecified (6) Pulmonary hypertension: Continue the amlodipine for the time being Status: Acute Code(s): I27.20 - Pulmonary hypertension, unspecified Additional A&P Information Because of the patient's hypoxia, and possible pneumonia, we may hold the discharge today. Dr. Macias will be reevaluating the patient in the morning and then decide on his disposition Attestations Medical Necessity Statement*: Patient requires continued hospital stay for close monitoring and further management Coding Level of Care Code Acute Stove Mounter for Chg Fwd Diagnoses Right-sided chest pain R07.9 Atherosclerotic heart disease of [place] coronary artery without angina pectoris I25.10 [place] vs. transplanted heart: [place] heart Hemoptysis R04.2 ESRD (end stage renal disease) N18.6 Cardiomyopathy I25.5 Cardiomyopathy type: ischemic Pulmonary hypertension I27.20
--- NOTE | 2020-01-03 17:04 | NMR_ITS ---
PROCEDURE INFORMATION: Exam: [facility] Exam date and time: 01/03/2020 6:12 PM Age: 49 years old Clinical indication: Pain and abnormal findings; Abnormal radiologic exam of lung or chest; Chest pain; Additional info: Shortness of bresth with pleuritic chest pain TECHNIQUE: Imaging protocol: Nuclear pulmonary ventilation with aerosol or gas was performed followed by perfusion. Views: Ventilation acquired with multiple projections. Perfusion acquired with multiple projections. Radiopharmaceutical: 36.2 mCi of Tc-99m DTPA, inhaled. 5.3 mCi of Tc-99m MAA, IV. COMPARISON: CR XR chest 1V portable [id number] 01/03/2020 8:33 AM FINDINGS: Ventilation: Ventilation images do not reveal significant defects. Perfusion: A recent chest radiograph reveals hazy opacity in the lateral right lung base and slightly in the left lung base. There is a small to moderate mismatched perfusion defect in the superior segment of the left lower lobe. NM/NM pul vent and perfus* [id number] IMPRESSION: Low probability for PE
--- NOTE | 2020-01-03 17:10 | P.CONIM_ITS ---
Providers/Reason For Consult Consulting Physican/Specialty*: Pulmonary and critical care medicine Reason for Consult*: Concern for pneumonia Attending Physician: Isauro Landis MD Primary Care Provider: Michael Eubanks DO History of Present Illness History of Present Illness Marlon Dorantes is a 49 year old male who is well-known to me from before. The patient has ESRD and is on home dialysis. He also has history of coronary artery disease, myocardial infarction and cardiomyopathy. I had evaluated the patient in the past for chronic hemoptysis for more than a year. 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 The patient had an extensive antibody work-up in the past and I had ordered a new one in October of this year that had all been negative. The patient had seen Dr. Troy for lung biopsy. Dr. Troy wanted him to follow-up with the cardiology team for evaluation of the cardiomyopathy and make sure there is no intervention that is necessary prior to performance of the procedure. Cardiac catheterization data: The patient underwent cardiac catheterization on January 01. He underwent both right and left heart cath. The left heart catheterization did not show any significant disease in the left main, left anterior descending, circumflex or right coronary arteries. The patient has right dominant coronary artery circulation. His LV cavity was moderately dilated. Estimated ejection fraction was 25 to 30%. His left ventricular end- diastolic pressure was 27 which would be also the pulmonary capillary wedge pressure. His pulmonary artery pressures were elevated at 63/27 with a mean pressure of 41. With a transpulmonary gradient of 13 and the diastolic pressure gradient of 1. His cardiac output was 4.17 with an index of 2. The patient was admitted to the hospital with right-sided pleuritic chest pain. The patient gives history of no fever however he did have some sore throat, nausea runny nose postnasal drip and cough. He is coughing up some white sputum but no purulence and no worsening of hemoptysis. The patient is on opioid pain medication for pain control. Radiologic data: The patient has bilateral pleural effusion. There is a right lower zone density however I do not see any air bronchogram within the density. Laboratory data: Not available from today. Review of Systems Narrative: General: No fevers chills night sweats or fatigue Skin: No rash HEENT: Mild nasal congestion, postnasal drip. There is no blurred vision, double vision, redness of the eye or visual loss. There is no oral ulcer or dry mouth. Mild sore throat. Neck: There is no neck swelling, mass or swollen glands. Respiratory: Please see my HPI. Cardiovascular: No chest pain, resting shortness of breath, orthopnea, proximal nocturnal dyspnea, palpitation or significant lower extremity edema. Gastrointestinal: No abdominal pain, nausea, vomiting, melena or symptoms suggestive of GERD. Musculoskeletal: No joint pain or swelling, muscle weakness, morning stiffness, numbness or tingling. Neurological: Patient is awake alert and oriented x3, no paralysis, gross motor function is normal. Psychiatric: No anxiety or depression. Meds/Allergies Home Medications and Allergies Home Medications Medication Instructions Recorded Confirmed Type amlodipine 10 mg tablet 10 mg PO DAILY 10/31/19 01/02/20 History aspirin 81 mg tablet,delayed 81 mg PO DAILY 10/31/19 01/02/20 History release ferric citrate 210 mg iron tablet 420 mg PO TID 10/31/19 01/02/20 History furosemide 20 mg tablet 60 mg PO QAM tab 10/31/19 01/02/20 History gabapentin 300 mg capsule 300 mg PO TID 10/31/19 01/02/20 History nitroglycerin 0.4 mg sublingual 0.4 mg SUBLINGUAL Q5M PRN 10/31/19 01/02/20 History tablet oxycodone-acetaminophen 5 mg-325 1 tab PO BID PRN tab 10/31/19 01/02/20 History mg tablet metoprolol tartrate 50 mg tablet 50 mg PO DAILY tab 11/09/19 01/02/20 History vitamin B complex with vit C-folic 1 tab PO DAILY tab 11/09/19 01/02/20 History acid 800 mcg-zinc 12.5 mg tablet calcitriol See Rx Instructions .ROUTE .COMPLEX 01/01/20 01/02/20 History clonidine HCl 0.1 mg PO DAILY PRN 01/01/20 01/02/20 History metoclopramide HCl [Reglan] 10 mg PO Q6H PRN 01/01/20 01/02/20 History gabapentin 300 mg PO TID 01/02/20 01/02/20 History Allergies Allergy/AdvReac Type Severity Reaction Status Date / Time azithromycin Allergy ADR-Chest Verified 01/02/20 08:27 Pain carvedilol AdvReac ADR-Dizzine Verified 01/02/20 08:27 ss Current Medications Current Medications Generic Name Dose Route Start Last Admin Trade Name Freq PRN Reason Stop Dose Admin Amlodipine Besylate 10 mg 01/03/20 09:00 01/03/20 08:09 Norvasc PO Not Given DAILY JANNET Aspirin 81 mg 01/03/20 09:00 01/03/20 08:07 Aspirin Ec PO 81 mg DAILY JANNET Administration Fentanyl 50 mcg 01/02/20 09:46 01/02/20 10:42 Sublimaze IVP 50 mcg PRN PRN Administration Prior to sheath removal Furosemide 60 mg 01/03/20 06:00 01/03/20 06:30 Lasix PO 60 mg QAM JANNET Administration Gabapentin 300 mg 01/02/20 15:00 01/03/20 15:06 Neurontin PO 300 mg TID JANNET Administration Hydralazine HCl 25 mg 01/02/20 21:00 01/03/20 15:06 Apresoline PO 25 mg TID JANNET Administration Metoprolol Tartrate 50 mg 01/02/20 09:45 01/03/20 08:07 Lopressor PO 50 mg DAILY JANNET Administration Oxycodone/Acetaminophen 1 tab 01/02/20 09:42 01/03/20 04:34 Percocet 5-325 Mg PO 1 tab BID PRN Administration Pain PFSH Acute PFSH: Medical History Atherosclerotic heart disease of [place] coronary artery without angina pectoris Benign essential hypertension Cardiomyopathy CHF NYHA class III (symptoms with mildly strenuous activities) Diabetes mellitus Dyslipidemia Fistula Left Wrist Headache Hemoptysis Mixed hyperlipidemia Nicotine dependence, cigarettes, uncomplicated Non-ST elevation (NSTEMI) myocardial infarction Pulmonary hypertension Surgical History H/O elbow surgery H/O hand surgery H/O neck surgery History of back surgery History of intravascular stent placement Family History Grandmother , In her 50's Myocardial infarction Father Diabetes Mother Diabetes Social History Smoking and tobacco status: former smoker Quit status (tobacco): has quit using tobacco Year quit tobacco: 1999 - 2PPD x 20 Years Alcohol intake: current Alcohol intake frequency: holidays/special occasions only Household members: spouse Marital status: Current occupational status: disabled History of recent travel: No Current gender identity: Male Vitals/I&O/Wt Last Vital Signs Temp 99.4 F 01/03/20 15:25 Pulse 95 01/03/20 15:25 Resp 20 H 01/03/20 10:50 BP 154/91 01/03/20 15:25 Pulse Ox 90 01/03/20 15:25 01/03/20 01/03/20 01/03/20 06:59 14:59 22:59 Intake Total 0 / 480 360 / 360 Output Total 250 / 250 Balance -250 / 230 360 / 360 Weight last 48 hrs Weight 174 lb Physical Exam Narrative: EXAM NARRATIVE: General: Patient is awake alert and oriented, in no distress. Resting comfortably HEENT: Pupil bilateral symmetric, light and accommodation reflex present, extraocular muscle movement intact, no deformity of the nose, mildly congested nasal mucosa, no paleness noted, no bleeding, intact nasal septum, no tenderness of the frontal and maxillary sinuses. External auditory canal appears normal, mild wax noted, visible tympanic membrane is intact. Oral mucosa is moist, no pharyngeal erythema or cobblestoning. Neck: No JVD, no cervical or supraclavicular lymphadenopathy. Respiratory: Inspection: No visible deformity of the chest wall Palpation: Trachea is mildly deviated to the right, bilateral symmetric expansion, bilateral symmetric vocal fremitus present except posteriorly bilaterally Percussion: Bilateral tympanic percussion note both anterior and posteriorly except posteriorly bilaterally at the very bottom of the examination field Auscultation: Bilateral fine crackles at the bases, no wheezing or rhonchi Cardiovascular: Regular rate and rhythm, S1-S2 present, no murmur, no right ventricular heave, no peripheral edema. Abdomen: Soft, nontender, nondistended, positive bowel sound. No palpable organomegaly. Musculoskeletal: No obvious joint deformity Skin: No rash, no evidence of erythema nodosum or multiforme. Neuro: Mental status is normal, no gross cranial nerve deficit, normal motor and coordination. Data Other Data: Other data: Please see my HPI. A&P Assessment and plan (1) Pneumonia: The patient has radiographic right lower lobe infiltrate and pleuritic chest pain. This is consistent with a diagnosis of community-acquired pneumonia. A significant number of community-acquired pneumonia cases are secondary to a viral infection. The patient does not have the clinical presentation of influenza. He is afebrile, not requiring oxygen supplementation, able to take oral antibiotic. I am going to obtain a CBC and a procalcitonin level. I am starting the patient on Augmentin. There is a concern whether this could be a pulmonary embolus especially given the lack of air bronchogram in the right lower lobe infiltrate and pleuritic chest pain. We are getting a ventilation perfusion scan as the patient has ESRD with residual urine production. And he got contrast the day prior from the cardiac catheterization. Status: Acute Code(s): J18.9 - Pneumonia, unspecified organism (2) Hemoptysis: The patient has undergone extensive evaluation for hemoptysis in the past including an extensive autoimmune work-up. There is a significant concern for whether he has pulmonary renal syndrome. The patient is going to follow-up with Dr. Troy for lung biopsy. Status: Acute Code(s): R04.2 - Hemoptysis (3) Cardiomyopathy: The patient did not have any evidence of significant coronary artery disease. He has global hypokinesis. I have discussed this with Dr. Landis, there is a possibility that this could be secondary to vasculitic disease that is also affecting his kidneys and his lungs. We will consider doing a cardiac MRI once the patient is out of the hospital. I am going to follow-up with the patient tomorrow he is likely to be discharged tomorrow. Status: Acute Qualifiers: Cardiomyopathy type: ischemic Qualified Code(s): I25.5 - Ischemic cardiomyopathy Code(s): I42.9 - Cardiomyopathy, unspecified Coding Level of Care Code Acute Wireless Development Manager for [facility] Diagnoses Pneumonia J18.9 Hemoptysis R04.2 Cardiomyopathy I25.5 Cardiomyopathy type: ischemic
[2020-01-03] MEDS: amoxicillin-clav 875-125 mg Tablet 1 TAB PO (17:12)
[2020-01-03 17:41] LABS: Basophils # 0.1 10^3/uL (0.0-0.1); Eosinophils # 0.1 10^3/uL (0.0-0.8); Eosinophils % 1.9 %; Hematocrit 34.2 % (42.0-52.0); Hemoglobin 10.8 g/dL (11.7-16.6); Lymphocytes # 0.8 10^3/uL (0.8-4.8); Lymphocytes % 11.7 %; Mean Corpuscular HGB Conc 31.6 g/dL (30.0-36.0); Mean Corpuscular Hemoglobin 32.8 pg (28.0-34.0); Mean Platelet Volume 9.8 fL (7.4-10.4); Monocytes # 0.8 10^3/uL (0.2-0.9); Neutrophils # 5.1 10^3/uL (1.8-7.7); Neutrophils % 74.3 %; Nucleated Red Blood Cells % 0 %; Platelet Count 145 10^3/cmm (130-400); Red Blood Count 3.29 10^6/uL (4.1-5.3); Red Cell Distribution Width 14.2 % (12.1-15.1); White Blood Count 6.8 10^3/uL (4.0-10.0)
[2020-01-03 18:13] LABS: Procalcitonin 0.51 ng/mL (0-0.5)
[2020-01-03] MEDS: FUROsemide 10 mg/mL SDV 4mL 40 MG IVP (18:22)
[2020-01-03 18:31] LABS: Basophils % 0.5 %; Eosinophils # 0.1 10^3/uL (0.0-0.8); Hematocrit 33.9 % (42.0-52.0); Hemoglobin 10.8 g/dL (11.7-16.6); Lymphocytes # 0.9 10^3/uL (0.8-4.8); Lymphocytes % 10.7 %; Mean Corpuscular HGB Conc 31.9 g/dL (30.0-36.0); Mean Corpuscular Hemoglobin 32.9 pg (28.0-34.0); Mean Corpuscular Volume 103.4 fL (80-94); Mean Platelet Volume 9.3 fL (7.4-10.4); Monocytes # 0.9 10^3/uL (0.2-0.9); Monocytes % 10.6 %; Neutrophils # 6.2 10^3/uL (1.8-7.7); Nucleated Red Blood Cells % 0 %; Platelet Count 150 10^3/cmm (130-400); Red Blood Count 3.28 10^6/uL (4.1-5.3); Red Cell Distribution Width 14.3 % (12.1-15.1)
[2020-01-04] VITALS (7 sets, daily range): BP systolic 133–156; BP diastolic 79–102; PULSE 85–98; RESP 18–20; TEMP 36.4–37.1; O2SAT 90–93
[2020-01-04] MEDS: FUROsemide 20 mg Tablet 60 MG PO (06:28)
[2020-01-04] MEDS: oxyCODONE-APAP 5-325 mg Tablet 1 TAB PO (07:36)
[2020-01-04] MEDS: aspirin 81 mg EC Tablet PO (07:37)
[2020-01-04] MEDS: metoprolol tartrate 50 mg Tablet PO (07:37)
[2020-01-04] MEDS: amoxicillin-clav 875-125 mg Tablet 1 TAB PO ×2 (07:37→17:22)
[2020-01-04] MEDS: gabapentin 300 mg Capsule PO ×2 (07:37→15:26)
[2020-01-04] MEDS: hyDRALAzine 25 mg Tablet PO ×2 (07:37→15:26)
--- NOTE | 2020-01-04 14:16 | PM.PN ---
Subjective Subjective: Interval history: feels well, s/p HD today Medications: Reviewed: Yes Vitals/I&O/Wt Last Vital Signs Temp 98.7 F 01/04/20 07:11 Pulse 98 01/04/20 07:11 Resp 18 01/04/20 07:36 BP 156/102 01/04/20 07:11 Pulse Ox 91 01/04/20 07:11 01/03/20 01/04/20 01/04/20 22:59 06:59 14:59 Intake Total 440 / 800 340 / 340 Output Total 210 / 210 Balance 440 / 800 -210 / 590 340 / 340 Physical Exam Const: COMMON NORMALS: no apparent distress Neck/C-Spine: COMMON NORMALS: no JVD Resp: COMMON NORMALS: clear to auscultation bilaterally AUSCULTATION: clear to auscultation bilaterally Cardio: COMMON NORMALS: no JVD, regular rate and regular rhythm RATE: regular rate RHYTHM: regular rhythm Extremity: COMMON NORMALS: no pedal edema NARRATIVE EXTREMITY EXAM: Left forearm AVF Data : 01/03/20 18:15 01/03/20 08:49 A&P Additional A&P Information ESRD s/p HD today, s/p cardiac cath on Home hemodialysis 4x weekly. His plan is to dialyze on Tuesday Has follow-up scheduled with nephrology and pulmonary (lung biopsy for possible vasculitis) Attestations Medical Necessity Statement*: per primary service Coding Level of Care Code Acute Hot Plate Plywood Press Operator for [facility]
--- NOTE | 2020-01-04 16:19 | PM.DCS ---
Discharge Providers Date of Admission: 01/02/20 09:50 Date of Discharge: January 04, 2020 Attending Provider at Admission: Isauro Landis MD Attending Provider at Discharge: Isauro Landis MD Primary Care Provider: Michael Eubanks DO Diagnoses at Discharge Discharge Diagnosis (1) Pneumonia: Status: Acute (2) Hemoptysis: Status: Acute (3) Cardiomyopathy: Status: Acute Qualifiers: Cardiomyopathy type: ischemic Qualified Code(s): I25.5 - Ischemic cardiomyopathy (4) COPD (chronic obstructive pulmonary disease): Status: Acute (5) Atherosclerotic heart disease of [place] coronary artery without angina pectoris: Status: Acute Qualifiers: [place] vs. transplanted heart: [place] heart Qualified Code(s): I25.10 - Atherosclerotic heart disease of [place] coronary artery without angina pectoris (6) Mixed hyperlipidemia: Status: Acute (7) Dyslipidemia: Status: Acute (8) ESRD (end stage renal disease): Status: Acute (9) CHF NYHA class III (symptoms with mildly strenuous activities): Status: Acute Qualifiers: Congestive heart failure type: systolic Congestive heart failure chronicity: chronic Qualified Code(s): I50.22 - Chronic systolic (congestive) heart failure (10) Right-sided chest pain: Status: Acute (11) Pulmonary hypertension: Status: Acute (12) Benign essential hypertension: Status: Acute (13) Diabetes mellitus: Status: Acute (14) Nicotine dependence, cigarettes, uncomplicated: Status: Acute (15) History of intravascular stent placement: Status: Acute Reason for Visit Reason for Visit: Reason For Visit: NO DX LISTED WILL TRY TO FIND Brief History: Patient was admitted by Dr. Landis for purposes of right and left heart catheterization. Hospital Course Discharge Summary: He underwent coronary angiography which was basically normal. The previously placed LAD stent is patent. He has a dilated cardiomyopathy with an ejection fraction of about 25%. Right heart catheterization was performed. The pulmonary artery pressure was 63/27. Patient experienced pleuritic right-sided chest pain after the angiogram which persists to some degree. Pulmonary medicine saw him. The diagnosis of pneumonia was made. He has been on Augmentin since that time. His other medications were continued as prescribed at home. The right femoral artery and right femoral vein entry sites were unremarkable at the time of discharge. No bleeding, hematoma or other vascular anomaly was noted. Patient has had hemoptysis for several months without an etiology. He has had a bronchoscopy which did not reveal a diagnosis. He is scheduled for a lung biopsy in the near future. Physical Exam Narrative: EXAM NARRATIVE: GENERAL: In general he is comfortable sitting upright HEENT: Exam within normal limits. NECK: Supple without jugular vein distention. The carotid upstroke is normal without bruits. BACK: Exam normal. LUNGS: Clear. HEART: Regular rate and rhythm. ABDOMEN: Benign without organomegaly or tenderness. EXTREMITIES: No edema. NEUROLOGIC: Exam normal. SKIN: Unremarkable. Discharge Data Data Completed and Pending: Completed Studies During Hospitalization Category Date Time Status VAN LOADER request for service Routin e Exams 01/02/20 07:52 Completed XR chest 1V melva ble [id number] Stat Exams 01/03/20 08:03 Completed NM pul vent and p erfus* [id number] Urgen t Nuc Med 01/03/20 17:04 Completed Labs from last 24 hours 01/03/20 01/03/20 01/03/20 18:15 17:40 08:49 WBC 8.0 6.8 RBC 3.28 L 3.29 L Hgb 10.8 L 10.8 L Hct 33.9 L 34.2 L MCV 103.4 H 104.0 H MCH 32.9 32.8 MCHC 31.9 31.6 RDW 14.3 14.2 Plt Count 150 145 MPV 9.3 9.8 Neut % (Auto) 77.0 74.3 Lymph % (Auto) 10.7 11.7 [place] % (Auto) 10.6 11.0 Eos % (Auto) 1.0 1.9 Baso % (Auto) 0.5 1.0 Neut # (Auto) 6.2 5.1 Lymph # (Auto) 0.9 0.8 [place] # (Auto) 0.9 0.8 Eos # (Auto) 0.1 0.1 Baso # (Auto) 0.0 0.1 Nucleated RBC % (a uto) 0 0 Nucleated RBCs # 0.0 0.0 Procalcitonin 0.51 H Vitals: Last Vital Signs Temp 98.1 F 01/04/20 15:36 Pulse 91 01/04/20 15:36 Resp 18 01/04/20 15:36 BP 141/79 01/04/20 15:36 Pulse Ox 90 03/13/20 15:36 Discharge Plan Discharge Patient Disposition: Home, Self-Care Condition: Stable Prescriptions: New amoxicillin-pot clavulanate 875-125 mg Tablet 1 tab PO BID Qty: 14 RF: 0 Continued oxycodone-acetaminophen 5-325 mg tablet 1 tab PO BID PRN (Reason: Pain) RF: 0 aspirin 81 mg tablet,delayed release (DR/EC) 81 mg PO DAILY RF: 0 nitroglycerin [Nitrostat] 0.4 mg tablet, sublingual 0.4 mg SUBLINGUAL Q5M PRN (Reason: Pain) RF: 0 furosemide [Lasix] 20 mg tablet 60 mg PO QAM RF: 0 gabapentin 300 mg capsule 300 mg PO TID RF: 0 Auryxia 210 mg iron tablet 420 mg PO TID RF: 0 amlodipine 10 mg tablet 10 mg PO DAILY RF: 0 metoprolol tartrate 50 mg tablet 50 mg PO DAILY RF: 0 RenaPlex 800 mcg- 12.5 mg tablet 1 tab PO DAILY RF: 0 clonidine HCl 0.1 mg Tablet 0.1 mg PO DAILY PRN (Reason: Hypertension) RF: 0 calcitriol 0.5 mcg Capsule See Rx Instructions .ROUTE .COMPLEX RF: 0 metoclopramide HCl [Reglan] 10 mg Tablet 10 mg PO Q6H PRN (Reason: Nausea) RF: 0 gabapentin 300 mg Capsule 300 mg PO TID RF: 0 Discharge Orders: Discharge Order (Routine); Ordered 01/04/20 Ordered By: Jarrod Alvarado Referrals: Isauro Landis MD [Physician] - 02/18/20 2:15 pm Keanu Macias MD [Physician] - 01/23/20 10:00 am Discharge Diet: Usual diet Discharge Activity: Resume usual activity Activity Restrictions/Additional Instructions: Take antibiotics for 1 week. Ad kaleigh. activity. Follow-up as directed. Discharge Attestations Time Spent in Discharge Care*: greater than 30 min Specific Discharge Activities: Specific discharge activities: educating patient and educating and/or supporting family/caregiver Quality Metrics Clinical Quality Measures During this hospital stay, did patient experience: None Coding Level of Care Code Acute Sugar Controller for Gabyg Fwd History Comprehensive Exam Comprehensive Medical Decision Making High Complexity Diagnoses Pneumonia J18.9 Hemoptysis R04.2 Cardiomyopathy I25.5 Cardiomyopathy type: ischemic COPD (chronic obstructive pulmonary disease) J44.9 Atherosclerotic heart disease of [place] coronary artery without angina pectoris I25.10 [place] vs. transplanted heart: [place] heart Mixed hyperlipidemia E78.2 Dyslipidemia E78.5 ESRD (end stage renal disease) N18.6 CHF NYHA class III (symptoms with mildly strenuous activities) I50.22 Congestive heart failure type: systolic Congestive heart failure chronicity: chronic Right-sided chest pain R07.9 Pulmonary hypertension I27.20 Benign essential hypertension I10 Diabetes mellitus E11.9 Nicotine dependence, cigarettes, uncomplicated F17.210 History of intravascular stent placement Z95.828
== END 2020-01-04 17:36 | disposition home or self-care (01) ==
LOC: ICU 09:51 → MEDSURG 01-03 04:16
PROVIDERS: Internal Medicine Critical Care Medicine; Internal Medicine Nephrology; Admitting Provider Internal Medicine Cardiovascular Disease; Family Provider Internal Medicine; PCP Internal Medicine; Visit Provider Internal Medicine Cardiovascular Disease
DX: I25.10 Atherosclerotic heart disease of native coronary artery without angina pectoris (principal); E78.2 Mixed hyperlipidemia; R04.2 Hemoptysis; I25.5 Ischemic cardiomyopathy; E11.22 Type 2 diabetes mellitus with diabetic chronic kidney disease; I13.2 Hypertensive heart and chronic kidney disease with heart failure and with stage 5 chronic kidney disease, or end stage renal disease; I50.22 Chronic systolic (congestive) heart failure; N18.6 End stage renal disease; I27.20 Pulmonary hypertension, unspecified; J18.9 Pneumonia, unspecified organism; J44.9 Chronic obstructive pulmonary disease, unspecified; F17.210 Nicotine dependence, cigarettes, uncomplicated; Z95.828 Presence of other vascular implants and grafts; Z99.2 Dependence on renal dialysis; Z82.49 Family history of ischemic heart disease and other diseases of the circulatory system; Z83.3 Family history of diabetes mellitus
CPT/HCPCS: 12345; 36415; 71045; 78014; 80048; 84145; 85025; 85610; 86706; 86803; 86850; 86900; 87340; 90935; 93453; 96375; A9540; A9567; C1751; C1769; C1887; C1894; G0378; J1644; J1940; J2001; J2250; J3010; J7030; Q0163; Q3014; Q9967

== ENCOUNTER 2020-01-08 12:00 | Outpatient (CLI) | payer MEDICARE, MEDICAID, SELFPAY ==
--- NOTE | 2020-01-08 12:10 | XR_ITS ---
WS: [id number] XR chest 2V* [id number] REASON FOR EXAM: Lung Nodule FINDINGS: Comparison to the earlier exams of January 03, 2020 the infiltrate in the right lung base is almost completely resolved. There is low-grade inflammatory changes remaining. The heart is not grossly enlarged. Arteriosclerotic changes in the arch of the aorta are noted. There is multiple small nodular densities in both hilar areas worse on the right suggesting granuloma s. XR/XR chest 2V* [id number] IMPRESSION: Multiple granulomas in the hilar regions. Resolving pneumonia right lower lung.
== END 2020-01-08 12:01 | disposition home or self-care (01) ==
LOC: RAD 12:04
PROVIDERS: Family Provider Internal Medicine; PCP Internal Medicine; Visit Provider Internal Medicine Critical Care Medicine
DX: J84.10 Pulmonary fibrosis, unspecified (principal); J18.9 Pneumonia, unspecified organism; R91.1 Solitary pulmonary nodule
CPT/HCPCS: 71046

== ENCOUNTER 2020-03-03 20:45 | Inpatient (IN) | payer MEDICARE, MEDICAID, SELFPAY ==
[2020-02-28 08:46] VITALS: BMI 27.5
--- NOTE | 2020-02-28 14:35 | ECG_ITS ---
Measurements Intervals [place] Rate: 80 P: 47 UT: 156 QRS: 10 QRSD: 106 T: 181 QT: 443 QTc: 512 SINUS RHYTHM POSSIBLE LEFT ATRIAL ENLARGEMENT [-0.1mV P WAVE IN V1/V2] ST DEVIATION AND MODERATE T-WAVE ABNORMALITY, CONSIDER LATERAL ISCHEMIA [-0.1+ mV T WAVE IN I/aVL/V5/V6] Compared to ECG 10/02/2019 21:46:33 T-wave abnormality now present Possible ischemia now present Left ventricular hypertrophy no longer present ST (T wave) deviation no longer present Electronically Signed On 02-29-2020 15:29:16 CDT by Sun Valle M.D. [email or web address]
[2020-02-28 14:55] LABS: Basophils # 0.1 10^3/uL (0.0-0.1); Basophils % 0.9 %; Eosinophils # 0.2 10^3/uL (0.0-0.8); Eosinophils % 3.4 %; Hematocrit 36.9 % (42.0-52.0); Hemoglobin 11.8 g/dL (11.7-16.6); Lymphocytes # 0.8 10^3/uL (0.8-4.8); Lymphocytes % 11.3 %; Mean Corpuscular Hemoglobin 32.1 pg (28.0-34.0); Mean Corpuscular Volume 100.3 fL (80-94); Mean Platelet Volume 9.7 fL (7.4-10.4); Monocytes # 0.8 10^3/uL (0.2-0.9); Monocytes % 11.3 %; Neutrophils % 72.8 %; Nucleated Red Blood Cells % 0 %; Platelet Count 116 10^3/cmm (130-400); Red Blood Count 3.68 10^6/uL (4.1-5.3); Red Cell Distribution Width 16.1 % (12.1-15.1); White Blood Count 6.8 10^3/uL (4.0-10.0)
--- NOTE | 2020-02-28 15:00 | ANES.PREANE2 ---
Pre-Anesthetic Assessment Pre-Anesthetic Assessment: Height/Weight: Height 1.78 m Weight 87.09 kg Proposed Procedure: Operation Date: 03/03/20 14:45 Proposed Procedures p VATS 43018 R91.8(Not Applicable) - Jose Angel Troy MD Social: Social History: No alcohol and No tobacco Packs per day: quit Exam: Pre-Anes Outpt Exam: alert and oriented x 3 Airway: Submandibular: WNL Cervical ROM: WNL Dentition: Loose (top right) History/ROS: No significant history except as noted Pulmonary: Pulmonary: COPD CV/HEM: CV/HEM: CAD, CHF (class 3), HTN and NC (stents 2014) Comments: cardiomyopathy : : Chronic renal failure Comments: hemodialysis Hepatic: Hepatic: None reported GI: GI: None reported Metabolic: Metabolic: DM Neuropsych: Neuropsych: Anxiety and Depression Anesthetic Plan: ASA status: 4 Anesthesia: Anesthesia Evaluation and General Risk of > 500 ml blood loss (7ml/kg in children): Yes, adequate IV access and fluids planned PFSH Anesthesia PFSH: Social History Smoking and tobacco status: former smoker Quit status (tobacco): has quit using tobacco Year quit tobacco: 1999 - 2PPD x 20 Years Alcohol intake: current Alcohol intake frequency: holidays/special occasions only Lives independently: Yes Household members: spouse Marital status: Current occupational status: disabled History of recent travel: No Current gender identity: Male Data Anesthesia CBC & Chem 7: 02/28/20 14:39 Other Labs: Laboratory Results - last 48 hr 02/28/20 14:39 WBC 6.8 RBC 3.68 L Hgb 11.8 Hct 36.9 L MCV 100.3 H MCH 32.1 MCHC 32.0 RDW 16.1 H Plt Count 116 L MPV 9.7 Neut % (Auto) 72.8 Lymph % (Auto) 11.3 [place] % (Auto) 11.3 Eos % (Auto) 3.4 Baso % (Auto) 0.9 Neut # (Auto) 5.0 Lymph # (Auto) 0.8 [place] # (Auto) 0.8 Eos # (Auto) 0.2 Baso # (Auto) 0.1 Nucleated RBC % (auto) 0 Nucleated RBCs # 0.0 Cardiac Studies: No Data to Display
[2020-02-28 15:12] LABS: Anion Gap 19.2 (5-19); Blood Urea Nitrogen 43 mg/dL (6-20); Calcium 8.7 mg/dL (8.5-10.5); Carbon Dioxide 27 mmol/L (22-29); Chloride 95 mmol/L (98-107); Glomerular Filtration Rate 6.7 mL/min (90-130); Glucose 97 mg/dL (65-115); Osmolality Calculated 282 mOsm/kg (285-295); Potassium 4.2 mmol/L (3.5-5.1); Sodium 137 mmol/L (136-145)
[2020-02-28 17:02] LABS: INR 1.05 (0.8-1.2)
[2020-02-28 20:56] LABS: Urine Appearance Clear (CLEAR); Urine Color Amber (Yellow); pH Urine 8 (5-7)
[2020-02-28 20:57] LABS: Add Urine Culture? No; Add Urine Microscopic? YES; Bacteria Urine 1+; Bilirubin Urine Neg (NEGATIVE); Blood Urine Neg (Negative); Glucose Urine UA 1+ (Normal); Ketones Urine Negative (Negative); Leukocyte Esterase Urine Negative (Negative); Nitrate Urine Negative (Negative); Protein Urine 3+ (Negative); Sulfosalicylic Acid Urine Negative (Negative); Urobilinogen Urine Norm (Negative); WBC Urine 0-4 /hpf (0-5)
[2020-03-03] VITALS (12 sets, daily range): BP systolic 136–154; BP diastolic 85–107; PULSE 74–87; RESP 16–28; TEMP 36.9–37.3; O2SAT 26–100
[2020-03-03] MEDS: sodium chloride 0.9% 1,000 ML 30 ML IV (14:25)
--- NOTE | 2020-03-03 17:29 | W.PM.OPSUD ---
Surgery/Procedure H&P Update DATE OF PROCEDURE: March 03, 2020 DATE H&P PERFORMED: 02/28/20 H&P UPDATE INFORMATION: I have reviewed H&P completed within last 30 days, I have examined patient prior to procedure (Patient has been appropriately marked on the right side) and No changes to prior documentation PREOP DIAGNOSIS: Recurrent hemoptysis with suspected vasculitis PLANNED PROCEDURE: Operation Date: 03/03/20 14:45 Proposed Procedures p VATS 40838 R91.8(Not Applicable) - Jose Angel Troy MD
[2020-03-03] MEDS: ceFAZolin 1,000 mg SDV 1000 MG IRRIGATION (19:14)
--- NOTE | 2020-03-03 20:35 | PC.NURSE ---
Admit Note Arrived from surgery at 2034, pt drowsy but awake and oriented on arrival to unit. Admitted to unit on 15L NRB mask. Breathing is even, shallow, and tachypneic on arrival. Complains of right chest discomfort 9/10 and huffman catheter discomfort. Lung sounds clear to all lobes left side. Right lobes diminshed with crackles. Right chest has surgical incision with covaderm which is clean, dry, and intact. Right pleural chest tube with xeroform and covaderm applied to 20mmhg suctioning. No air leak detected at this time, chamber had approximately 15ml on arrival to unit. Dr. Quintanilla currently at bedside.
--- NOTE | 2020-03-03 20:45 | P.OP_ITS ---
Operative Report Date of procedure: March 03, 2020 Pre-op Diagnosis: Recurrent hemoptysis with suspected vasculitis Post-op diagnosis: same Procedure Done: Right anterior thoracotomy with wedge lung biopsies of right middle lobe Specimens removed/disposition: Wedge lung biopsies x2 Pleural fluid collected for analysis Surgeon: Jose Angel Troy Anesthesia: General Estimated blood loss (mL): 50 Findings: 1700 cc of maycol-colored fluid collected from right pleural cavity. Mildly hemorrhagic lung parenchyma. Condition: stable Disposition: ICU Brief History: Very pleasant 49-year-old gentleman with end-stage renal disease on home hemodialysis with a protracted period of hemoptysis almost daily. He is been evaluated by Dr. Macias. Concerns for vasculitis have been entertained. Lung biopsies have been recommended. Details the risk of the procedure carefully and frankly discussed. Proper consents were reviewed and signed. Procedure: Mr. Dorantes was taken operating room theater after an attempt at epidural catheter placement was unsuccessful. Right radial arterial line was placed. He then underwent double-lumen endotracheal tube placement. Because of concerns related to his functioning autogenous left upper extremity AV fistula, I was concerned that placing him in the left lateral decubitus position for planned thoracoscopy may jeopardize the outflow of his fistula even with optimal body positioning. Therefore, I elected to keep him in supine position and perform a limited open right anterior thoracotomy approach for lung biopsy. After careful positioning and draping, a limited anterior thoracotomy incision was made in approximately the sixth intercostal space. Lung was deflated well on the right side. Once into the chest cavity, a total of 700 cc of maycol- colored very mildly turbid fluid was returned. Specimen was collected for culture as well as probe analysis. Once completed, inspection revealed a dhesions medially between the lower lobe and middle lobe. Lobe was brought up into the field after ribs were slightly . Multiple firings of the endoscopic stapler were then performed to take to generous lung biopsies. These were sent to pathology for permanent analysis. She noted the lung did appear to be mildly hemorrhagic. No pleural seeding or other abnormalities were noted. After completion of the biopsies, a single 20 Syriac drain was placed and directed toward the apex. He was connected Pleur-evac suction. Right lung was reinflated. Mild air leak noted. Retractors were removed. Bupivacaine was utilized to be injected as intercostal blocks. Wound was irrigated with antibiotic solution. Chest wall was reapproximated with #2 Vicryl suture. Fascia was closed in 2 layers of 2-0 Vicryl suture. Subtends layer was closed with 3-0 Vicryl suture. Skin was closed in a septic or manner with 3-0 Monocryl suture. Mr. Dorantes was then awakened and extubated without difficulty. He was separately transferred to the ICU in stable condition. We did breastfeeding peer counselor with his completion of procedure.
--- NOTE | 2020-03-03 20:51 | ANE.PACU2 ---
 Inpatient post-anesthesia follow up: Airway intact: Yes Vital signs: Temperature 98.5 F Pulse Rate 87 Respiratory Rate 20 Blood Pressure 154/107 Pulse Oximetry 95 Oxygen Delivery Me thod Room Air Oxygen Flow Rate Fraction of Inspir ed Oxygen Hydration adequate: Yes Nausea and vomiting: No Pain level: 2 Mental status: Baseline
[2020-03-03] MEDS: morphine 4 mg/mL SDV 1 mL 2 MG IVP ×2 (21:14→22:43)
[2020-03-03] MEDS: ketorolac 30 mg/mL INJ IVP (21:42)
[2020-03-03 21:51] LABS: Glucose Point of Care 89 mg/dL (70-110)
[2020-03-03] MEDS: oxyCODONE-APAP 5-325 mg Tablet PO (22:46)
[2020-03-03 22:51] LABS: LDH Pleural Fluid 229 U/L; Total Protein Pleural Fluid 1.9 g/dL
[2020-03-04] VITALS (33 sets, daily range): BP systolic 103–150; BP diastolic 65–102; PULSE 66–89; RESP 12–90; TEMP 36.5–36.8; O2SAT 25–100
[2020-03-04] MEDS: morphine 4 mg/mL SDV 1 mL 2 MG IVP ×3 (04:44→23:42)
[2020-03-04] MEDS: FUROsemide 40 mg Tablet 60 MG PO (05:07)
[2020-03-04 05:45] LABS: Basophils # 0.1 10^3/uL (0.0-0.1); Basophils % 0.8 %; Eosinophils # 0.2 10^3/uL (0.0-0.8); Eosinophils % 1.8 %; Hematocrit 33.7 % (42.0-52.0); Hemoglobin 10.7 g/dL (11.7-16.6); Lymphocytes # 0.9 10^3/uL (0.8-4.8); Lymphocytes % 9.8 %; Mean Corpuscular HGB Conc 31.8 g/dL (30.0-36.0); Mean Corpuscular Hemoglobin 32.5 pg (28.0-34.0); Mean Corpuscular Volume 102.4 fL (80-94); Mean Platelet Volume 9.4 fL (7.4-10.4); Monocytes # 0.8 10^3/uL (0.2-0.9); Monocytes % 8.3 %; Neutrophils # 7.1 10^3/uL (1.8-7.7); Nucleated Red Blood Cells % 0 %; Platelet Count 105 10^3/cmm (130-400); Red Blood Count 3.29 10^6/uL (4.1-5.3); Red Cell Distribution Width 16.5 % (12.1-15.1)
--- NOTE | 2020-03-04 05:49 | PM.PN ---
Subjective Subjective: Interval history: Postop day #1 status post right anterior thoracotomy and lung biopsy uneventful night. Vital signs stable. Chest tube output 4 and 75 cc since surgery becoming more serous. Chest x-ray reveals left pleural effusion and some 05 scaption in the right costodiaphragmatic angle consistent with parenchymal hemorrhage from the lung biopsy. Resting reasonably well. Vitals/I&O/Wt Last Vital Signs Temp 97.7 F 03/04/20 03:38 Pulse 69 03/04/20 04:00 Resp 17 03/04/20 04:44 BP 138/91 03/04/20 04:00 Pulse Ox 100 03/04/20 04:44 03/03/20 03/03/20 03/04/20 14:59 22:59 06:59 Intake Total 1050 / 1050 180 / 1230 Output Total 60 / 60 495 / 555 Balance 990 / 990 -315 / 675 Physical Exam Chest: COMMONS NORMALS: inspection of chest normal (Dressing dry) and palpation of chest normal Resp: COMMON NORMALS: normal respiratory effort EFFORT & INSPECTION: Yes able to speak in complete sentences and Yes symmetric chest movement AUSCULTATION: diminished lung sounds (In the bases bilaterally) bilateral Urinary Catheter Management^: [place]: Cath Placed During This Visit: yes Reason for Continuing Indwelling Catheter: Accurate Measurement of Urinary Output in Critically Ill Patients Urinary Catheter Date of Insertion: 03/03/20 Urinary Catheter Time of Insertion: 19:00 Data : 03/04/20 05:25 02/28/20 14:39 A&P Assessment and plan (1) Hemoptysis: Postop day #1 status post right lung biopsy Nephrology consult for hemodialysis while inpatient Out of bed in chair. Frequent use of incentive spirometry. Pulmonary toilet. I will confer with Dr. Macias as to operative findings. We discussed consideration for reevaluation of left pleural effusion after dialysis to determine whether thoracentesis will be required Status: Acute Attestations Medical Necessity Statement*: Status post open lung biopsy for recurrent hemoptysis Time Spent in Patient Care: 16 - 35 minutes Coding Level of Care Code Acute Control Cabinet Assembler for Ger Godfrey Diagnoses Hemoptysis R04.2
--- NOTE | 2020-03-04 06:00 | XR_ITS ---
WS: [id number] PORTABLE CHEST HISTORY: s/p lung biopsy COMPARISON: 01/29/2020 Right-sided chest tube projects over the medial RIGHT thorax. Tip overlies the hilar region. New haziness over both lungs bilaterally. Small bilateral pleural effusions. Increasing consolidation at the RIGHT lung base. May be combination of fluid or pneumonia. With history of recent biopsy post procedural hemorrhage should be considered. No pneumothorax is identified. Cardiac size: Mildly enlarged cardiac silhouette. Mediastinum/Aorta: Mediastinum is mildly prominent as compared to the prior study. Poor visualization of the aortic arch. Subcutaneous emphysema on the RIGHT. XR/XR chest 1V portable [id number] IMPRESSION: 1. Interval insertion of a RIGHT chest tube with tip overlying the RIGHT hilar region. 2. New haziness over both lungs with small bilateral pleural effusions. 3. Increasing consolidation at the RIGHT lung base may be related to pneumonia . With history of recent biopsy postprocedural hemorrhage should be considered. 4. Mild prominence of the mediastinum and poor visualization of the aortic arc h. May be related to the procedure, positioning or adjacent opacifications in t he lungs. If there is concern for aortic injury CT angiogram should be performe d.
[2020-03-04 06:27] LABS: Anion Gap 22.8 (5-19); Blood Urea Nitrogen 59 mg/dL (6-20); Calcium 8.2 mg/dL (8.5-10.5); Carbon Dioxide 21 mmol/L (22-29); Chloride 99 mmol/L (98-107); Glomerular Filtration Rate 5.8 mL/min (90-130); Glucose 85 mg/dL (65-115); Osmolality Calculated 284 mOsm/kg (285-295); Potassium 4.8 mmol/L (3.5-5.1); Sodium 138 mmol/L (136-145)
--- NOTE | 2020-03-04 06:27 | PC.NURSE ---
Arterial line Right radial art line discontinued per verbal orders of Dr. Quintanilla. Pressure held until hemostasis acheived. Dry sterile dressing applied, site asymptomatic. Pt tolerated well.
[2020-03-04] MEDS: metoprolol tartrate 50 mg Tablet PO (09:08)
[2020-03-04] MEDS: aspirin 81 mg EC Tablet PO (09:08)
[2020-03-04] MEDS: gabapentin 300 mg Capsule PO ×2 (09:08→17:07)
[2020-03-04] MEDS: pantoprazole DR 40 mg Tablet PO (09:08)
[2020-03-04] MEDS: oxyCODONE-APAP 5-325 mg Tablet PO ×3 (09:09→20:05)
--- NOTE | 2020-03-04 12:48 | PM.PN ---
Subjective Subjective: Interval history: Mr Dorantes is s/p VATS with biopsy, POD 1. Today feels ok, a little SOB on exertion but he is maintaining his O2 sats. Minimal pain. Eating and drinking small amounts. Minimal edema in his LE but no other volume Sx and he denies uremic Sx. He has been on dialysis for 2 years. ESRD due to advanced nephrosclerosis on renal biopsy. He dialyzes 4 times a week on a home therapy prescription, on [place], MWF. He missed dialysis yesterday. Hemodynamics appear to be stable. Vitals/I&O/Wt Last Vital Signs Temp 97.7 F 03/04/20 03:38 Pulse 71 03/04/20 11:00 Resp 15 03/04/20 11:00 BP 137/85 03/04/20 11:00 Pulse Ox 93 03/04/20 11:00 03/03/20 03/04/20 03/04/20 22:59 06:59 14:59 Intake Total 1050 / 1050 180 / 1230 240 / 240 Output Total 60 / 60 555 / 615 165 / 165 Balance 990 / 990 -375 / 615 75 / 75 Physical Exam Narrative: EXAM NARRATIVE: Exam performed by bedside RN, as I interview via telemed Const: COMMON NORMALS: alert Chest: COMMONS NORMALS: inspection of chest normal (Dressing dry) and palpation of chest normal Resp: COMMON NORMALS: normal respiratory effort EFFORT & INSPECTION: Yes able to speak in complete sentences and Yes symmetric chest movement AUSCULTATION: diminished lung sounds (In the bases bilaterally) bilateral Extremity: RIGHT UPPER EXTREMITY: Yes wrist (Well-functioning right radiocephalic fistula) Neuro: SENSORIUM/ORIENTATION: Yes alert Urinary Catheter Management^: [place]: Cath Placed During This Visit: yes Reason for Continuing Indwelling Catheter: Accurate Measurement of Urinary Output in Critically Ill Patients Urinary Catheter Date of Insertion: 03/03/20 Urinary Catheter Time of Insertion: 19:00 Data : 03/04/20 05:25 03/04/20 05:25 Micro: Microbiology 03/03/20 17:20 Gram Stain - Final Pleural Fluid A&P Additional A&P Information 1. ESRD - Will plan on dialysis today; 3hrs, 2K, UF 1L, button hole with blunt needles - dose meds for eGFR < 15 on dialysis 2. S/p VATS POD1 - per [facility] 3. Hemodynamics stable 4. Anemia at goal - thanks, will follow with the team Attestations Medical Necessity Statement*: mgmt of ESRD Coding Level of Care Code Acute Equine Pharmacology Technician for Ger Godfrey
[2020-03-04 15:55] LABS: Hepatitis B Surface Antigen Non-Reactive (Nonreactive)
[2020-03-04 16:41] LABS: Glucose Point of Care 124 mg/dL (70-110)
[2020-03-04] MEDS: amlodipine 10 mg Tablet PO (20:59)
[2020-03-04] MEDS: losartan 50 mg Tablet 25 MG PO (20:59)
[2020-03-05] VITALS (28 sets, daily range): BP systolic 97–135; BP diastolic 62–84; PULSE 69–89; RESP 10–24; TEMP 36.4–36.8; O2SAT 90–96
[2020-03-05] MEDS: oxyCODONE-APAP 5-325 mg Tablet PO ×5 (01:21→17:52)
[2020-03-05] MEDS: FUROsemide 40 mg Tablet 60 MG PO (05:25)
[2020-03-05 05:34] LABS: Basophils # 0.1 10^3/uL (0.0-0.1); Basophils % 0.5 %; Eosinophils # 0.3 10^3/uL (0.0-0.8); Eosinophils % 2.9 %; Hematocrit 33.5 % (42.0-52.0); Hemoglobin 10.6 g/dL (11.7-16.6); Lymphocytes # 0.7 10^3/uL (0.8-4.8); Lymphocytes % 6.2 %; Mean Corpuscular HGB Conc 31.6 g/dL (30.0-36.0); Mean Corpuscular Hemoglobin 32.3 pg (28.0-34.0); Mean Corpuscular Volume 102.1 fL (80-94); Mean Platelet Volume 9.8 fL (7.4-10.4); Monocytes # 1.2 10^3/uL (0.2-0.9); Neutrophils # 9.2 10^3/uL (1.8-7.7); Nucleated Red Blood Cells % 0 %; Platelet Count 111 10^3/cmm (130-400); Red Blood Count 3.28 10^6/uL (4.1-5.3); Red Cell Distribution Width 16.9 % (12.1-15.1); White Blood Count 11.5 10^3/uL (4.0-10.0)
[2020-03-05 05:57] LABS: Blood Urea Nitrogen 40 mg/dL (6-20); Calcium 8.4 mg/dL (8.5-10.5); Carbon Dioxide 26 mmol/L (22-29); Glomerular Filtration Rate 7.2 mL/min (90-130); Glucose 128 mg/dL (65-115)
--- NOTE | 2020-03-05 06:00 | XR_ITS ---
WS: [id number] PORTABLE CHEST HISTORY: Chest tube COMPARISON: 03/04/2020 RIGHT sided chest tube is present with the tip terminating over the hilar region. Increasing consolidation at the RIGHT lung base. There is a small amount of adjacent subcutaneous emp hysema. Stable opacification over the mid and lower LEFT lung. Small LEFT pleural effusion with parti al obscuration of the diaphragm. No pneumothorax. Cardiac size: Mildly enlarged cardiac silhouette. Mediastinum/Aorta: Improved appearance of the mediastinum. Alignment of the aortic arch is now visual ized. No osseous abnormality seen. XR/XR chest 1V portable [id number] IMPRESSION: 1. Right-sided thoracostomy tube remains in good position with no pneumothorax . 2. Increasing dense consolidation over the RIGHT lower lobe. With history of r ecent biopsy this may be associated hemorrhage with a biopsy or developing pneu monia. 3. Pneumonitis LEFT lower lung. 4. Small LEFT pleural effusion. 5. Improved appearance of the mediastinum since the prior study.
--- NOTE | 2020-03-05 06:43 | PM.PN ---
Subjective Subjective: Interval history: Postop day #2 status post right lung biopsy. Pathology pending. No air leak. Has been placed to waterseal. Chest tube output 160 cc past 12 hours. Becoming more serous. Pain appears to be under better control. Vital signs are stable. This morning's chest x-ray reveals paramount of consolidation laterally at the area of the biopsy probably representing parenchymal hemorrhage. Minimal effusion. Previous concerns about mediastinum is reported by radiology appears to have resolved and most probably was positioning at the last chest x-ray. He underwent hemodialysis yesterday for a couple of hours and tolerated it very well. Vitals/I&O/Wt Last Vital Signs Temp 98.3 F 03/05/20 06:00 Pulse 69 03/05/20 06:00 Resp 15 03/05/20 06:00 BP 101/80 03/05/20 06:00 Pulse Ox 95 03/05/20 06:00 03/04/20 03/04/20 03/05/20 14:59 22:59 06:59 Intake Total 240 / 240 480 / 720 240 / 960 Output Total 165 / 165 210 / 375 161 / 536 Balance 75 / 75 270 / 345 79 / 424 Weight last 48 hrs Weight 192 lb 1.6 oz Physical Exam Chest: COMMONS NORMALS: normal inspection of the chest (Surgical dressings in place. Chest tube in good position.) Resp: AUSCULTATION: diminished lung sounds (Right base laterally, as expected, otherwise clear) on the right Urinary Catheter Management^: [place]: Cath Placed During This Visit: yes Reason for Continuing Indwelling Catheter: Accurate Measurement of Urinary Output in Critically Ill Patients Urinary Catheter Date of Insertion: 03/03/20 Urinary Catheter Time of Insertion: 19:00 Data : 03/05/20 04:30 03/05/20 04:30 Micro: Microbiology 03/03/20 17:20 Gram Stain - Final Pleural Fluid A&P Assessment and plan (1) Hemoptysis: Postop day #2 status post right lung biopsy. Pathology pending. Will plan to transfer to [facility]. Keep chest tube to waterseal. Chest x-ray in a.m. Status: Acute Attestations Medical Necessity Statement*: Status post open right lung biopsy Time Spent in Patient Care: less than 15 minutes Coding Level of Care Code Acute Fire Sprinkler Apparatus Inspector for Ger Godfrey Diagnoses Hemoptysis R04.2
[2020-03-05 06:44] LABS: Anion Gap 18.9 (5-19); Chloride 95 mmol/L (98-107); Osmolality Calculated 281 mOsm/kg (285-295); Potassium 3.9 mmol/L (3.5-5.1); Sodium 136 mmol/L (136-145)
[2020-03-05 08:56] LABS: Glucose Point of Care 137 mg/dL (70-110)
[2020-03-05 08:56] LABS: Glucose Point of Care 89 mg/dL (70-110)
[2020-03-05] MEDS: aspirin 81 mg EC Tablet PO (10:12)
[2020-03-05] MEDS: pantoprazole DR 40 mg Tablet PO (10:13)
[2020-03-05] MEDS: metoprolol tartrate 50 mg Tablet PO (10:13)
[2020-03-05] MEDS: gabapentin 300 mg Capsule PO ×2 (10:14→17:49)
--- NOTE | 2020-03-05 12:03 | PC.NURSE ---
transferred to [address] [place] [address] per w/c. no air leak from c.t. belongings with pt.
--- NOTE | 2020-03-05 12:14 | PC.NURSE ---
chest tube 150ml in canister when pt came up from ic[facility].
--- NOTE | 2020-03-05 13:03 | P.PN_ITS ---
Subjective Subjective: Interval history: Feels ok but having a persistent cough with some hemoptysis. Dialysis went well yesterday. No edema and no other volume Sx. No uremic Sx at this time. Hemodynamics remain stable Vitals/I&O/Wt Last Vital Signs Temp 98.1 F 03/05/20 12:00 Pulse 79 03/05/20 12:00 Resp 17 03/05/20 12:00 BP 116/69 03/05/20 12:00 Pulse Ox 95 03/05/20 12:00 03/04/20 03/05/20 03/05/20 22:59 06:59 14:59 Intake Total 480 / 720 240 / 960 360 / 360 Output Total 210 / 375 161 / 536 Balance 270 / 345 79 / 424 360 / 360 Weight last 48 hrs Weight 87.135 kg Physical Exam Narrative: EXAM NARRATIVE: Exam performed by bedside RN, as I interview via telemed Const: COMMON NORMALS: alert Chest: COMMONS NORMALS: normal inspection of the chest (Dressing dry) and normal palpation of entire chest wall Resp: COMMON NORMALS: normal respiratory effort EFFORT & INSPECTION: Yes able to speak in complete sentences and Yes symmetric chest movement AUSCULTATION: diminished lung sounds (In the bases bilaterally) bilateral Neuro: SENSORIUM/ORIENTATION: Yes alert Urinary Catheter Management^: [place]: Cath Placed During This Visit: yes Reason for Continuing Indwelling Catheter: Accurate Measurement of Urinary Output in Critically Ill Patients Urinary Catheter Date of Insertion: 03/03/20 Urinary Catheter Time of Insertion: 19:00 Data : 03/05/20 04:30 03/05/20 04:30 Micro: Microbiology 03/03/20 17:20 Gram Stain - Final Pleural Fluid Body Fluid Culture - Preliminary A&P Additional A&P Information 1. ESRD - Will plan on dialysis tomorrow; 3hrs, 2K, UF 1L, button hole with blunt needles - dose meds for eGFR < 15 on dialysis 2. S/p VATS POD2 - per [facility]; Dr Troy, pathology pending 3. Hemodynamics stable 4. Anemia at goal - thanks, will follow with the team Attestations Medical Necessity Statement*: Eval for ESRD mgmt Coding Level of Care Code Acute Inside Sales Engineer for [facility] [employer]
[2020-03-05] MEDS: morphine 4 mg/mL SDV 1 mL 2 MG IVP (19:13)
[2020-03-05] MEDS: amlodipine 10 mg Tablet PO (20:22)
[2020-03-06] VITALS (9 sets, daily range): BP systolic 106–124; BP diastolic 69–81; PULSE 75–103; RESP 15–22; TEMP 36.5–36.9; O2SAT 92–94
[2020-03-06] MEDS: morphine 4 mg/mL SDV 1 mL 2 MG IVP (00:59)
[2020-03-06] MEDS: FUROsemide 40 mg Tablet 60 MG PO (05:22)
[2020-03-06] MEDS: oxyCODONE-APAP 5-325 mg Tablet PO (05:26)
--- NOTE | 2020-03-06 06:00 | XR_ITS ---
WS: [id number] PORTABLE CHEST HISTORY: POD #3 status post right lung biopsy; chest tube to waterseal COMPARISON: 03/05/2020 Right-sided chest tube is been removed. No pneumothorax. Small amount of subcutaneous emphysema. Consolidation is improving slightly at the RIGHT lung base. Increasing consolidation at the lingula. Small bilateral pleural effusions. Cardiac size: Mildly enlarged cardiac silhouette. Mediastinum/Aorta: Normal mediastinum. No osseous abnormality seen. XR/XR chest 1V portable [id number] IMPRESSION: 1. Status post removal RIGHT thoracostomy tube. 2. No pneumothorax. 3. Consolidation at the RIGHT lung base is slightly improved. 4. Increasing atelectasis or developing pneumonia in the lingula.
--- NOTE | 2020-03-06 06:22 | P.PN_ITS ---
Subjective Subjective: Interval history: No complaints this morning. Rested well last night. Approximately 150 cc of serous fluid recovered overnight. Vitals/I&O/Wt Last Vital Signs Temp 97.7 F 03/06/20 04:00 Pulse 103 H 03/06/20 04:00 Resp 22 H 03/06/20 05:26 BP 114/77 03/06/20 04:00 Pulse Ox 92 03/06/20 04:00 03/05/20 03/05/20 03/06/20 14:59 22:59 06:59 Intake Total 360 / 360 720 / 1080 240 / 1320 Output Total 100 / 100 150 / 250 Balance 360 / 360 620 / 980 90 / 1070 Weight last 48 hrs Weight 198 lb 5 oz Weight 192 lb 1.6 oz Physical Exam Chest: COMMONS NORMALS: normal inspection of the chest (Thoracotomy incision clean and dry. Chest tube was discontinued. Dressings reapplied.) Resp: AUSCULTATION: diminished lung sounds on the right in the lower lung hunt (Laterally. Good respiratory effort however. Exam consistent with chest x-ray at area of prior biopsy) Urinary Catheter Management^: [place]: Cath Placed During This Visit: yes Reason for Continuing Indwelling Catheter: Accurate Measurement of Urinary Output in Critically Ill Patients Urinary Catheter Date of Insertion: 03/03/20 Urinary Catheter Time of Insertion: 19:00 Data : 03/05/20 04:30 03/05/20 04:30 Micro: Microbiology 03/03/20 17:20 Gram Stain - Final Pleural Fluid Body Fluid Culture - Preliminary A&P Assessment and plan (1) Hemoptysis: Status post right lung biopsy. 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 Will plan to discharge home later today. Status: Acute Attestations Medical Necessity Statement*: Status post lung biopsy for recurrent hemoptysis Coding Level of Care Code Acute Hydraulic Design Engineer for [facility] Diagnoses Hemoptysis R04.2
--- NOTE | 2020-03-06 06:32 | P.DS_ITS ---
Discharge Providers Date of Admission: 03/03/20 20:45 Date of Discharge: March 06, 2020 Attending Provider at Admission: Jose Angel Troy MD Attending Provider at Discharge: Jose Angel Troy MD Primary Care Provider: Michael Eubanks DO Diagnoses at Discharge Discharge Diagnosis (1) Hemoptysis: Status: Acute Reason for Visit Reason for Visit: Reason For Visit: VATS Hospital Course Discharge Summary: Mr. Dorantes was electively admitted on March 03 for planned lung biopsy as part of continued evaluation for persistent hemoptysis. He has been previously seen by Dr. Macias and biopsy has been recommended to assist with determine the etiology. He underwent an open lung biopsy on the right side through a limited anterior thoracotomy on March 03. Postoperatively, he initially convalesced in the ICU for pain control and pulmonary toilet. He did receive hemodialysis while hospitalized as part of his routine. He had minimal air leak for several hours postop. He has had continued pleural drainage of about 100 cc per shift. There was noted to be almost 1-1/2 L of fluid in his chest at the time of surgery. Pulmonary pathology report has returned intra-alveolar hemorrhage and hemosiderosis. Final pathology has been referred to [facility]. Thoracotomy incision is clean and dry. Chest tube was discontinued today. He has been tolerating a diet well. Pain is under good control with oral narcotic. He will be discharged home today in stable condition. He will follow-up with me in 1 week with chest x-ray. He will follow-up with Dr. Macias in 2 weeks. Physical Exam Chest: COMMONS NORMALS: normal inspection of the chest (Thoracotomy incision clean and dry. Chest wall is stable.) and normal palpation of entire chest wall Resp: AUSCULTATION: diminished lung sounds (Right lower chest wall laterally consistent with the area of prior biopsy consistent with findings on chest x-r ay, which are improving) Cardio: COMMON NORMALS: regular rate, regular rhythm and S1 normal heart sound present RATE: regular rate RHYTHM: regular rhythm HEART SOUNDS: S1 normal heart sound present Urinary Catheter Management^: [place]: Cath Placed During This Visit: yes Reason for Continuing Indwelling Catheter: Accurate Measurement of Urinary Output in Critically Ill Patients Urinary Catheter Date of Insertion: 03/03/20 Urinary Catheter Time of Insertion: 19:00 Discharge Data Data Completed and Pending: Completed Studies During Hospitalization Category Date Time Status XR chest 1V melva ble [id number] Routine Exams 03/04/20 06:00 Completed XR chest 1V melva ble [id number] Routine Exams 03/05/20 06:00 Completed Pending at discharge Category Date Time Status XR chest 1V melva ble [id number] Routine Exams 03/06/20 06:00 Taken Body Fluid Cultur e & GS Routine Lab 03/03/20 17:20 Results PRBC [Leukocyte R educed RBC] Routin e Lab 02/28/20 14:35 Results Retype for XM Rou bon Lab 02/28/20 14:35 Results Type and Screen - Cardiac Routine Lab 02/28/20 14:35 Results Cytology [PTH] Ro utine Pth 03/03/20 17:20 Received Pathology: Surgic al [PTH] Routine Pth 03/03/20 21:27 Received Labs from last 24 hours 03/05/20 03/05/20 03/04/20 07:19 04:30 21:03 Sodium 136 Potassium 3.9 Chloride 95 L Anion Gap 18.9 Creatinine 8.0 H* POC Glucose 89 137 Calculated Osmolal ity 281 L Vitals: Last Vital Signs Temp 97.7 F 03/06/20 04:00 Pulse 103 H 03/06/20 04:00 Resp 22 H 03/06/20 05:26 BP 114/77 03/06/20 04:00 Pulse Ox 92 03/06/20 04:00 Discharge Plan Discharge Patient Disposition: Home, Self-Care Condition: Stable Prescriptions: New oxycodone-acetaminophen 5-325 mg Tablet 1 tab PO Q6H PRN (Reason: Moderate To Severe Pain) Qty: 18 RF: 0 Continued aspirin 81 mg tablet,delayed release (DR/EC) 81 mg PO DAILY RF: 0 nitroglycerin [Nitrostat] 0.4 mg tablet, sublingual 0.4 mg SUBLINGUAL Q5M PRN (Reason: Pain) RF: 0 furosemide [Lasix] 20 mg tablet 60 mg PO QAM RF: 0 gabapentin 300 mg capsule 300 mg PO BID RF: 0 Auryxia 210 mg iron tablet 420 mg PO TID RF: 0 amlodipine 10 mg tablet 10 mg PO DAILY RF: 0 metoprolol tartrate 50 mg tablet 50 mg PO DAILY RF: 0 losartan 25 mg tablet 25 mg PO DAILY Qty: 90 RF: 3 clonidine HCl 0.1 mg Tablet 0.1 mg PO DAILY PRN (Reason: Hypertension) RF: 0 sildenafil 50 mg tablet 50 mg PO PRN PRN (Reason: Erectile Dysfunction) RF: 0 RenaPlex-D 800 mcg-12.5 mg -2,000 unit tablet 1 tab PO DAILY RF: 0 Discharge Orders: Discharge Order (Routine); Ordered 03/06/20 Ordered By: Jose Angel Troy Referrals: Jose Angel Troy MD [Physician] - 1 week (with single view cxr on day of clinic visit) Keanu Macias MD [Physician] - 2 weeks Discharge Diet: Usual diet Discharge Activity: Limit activity as instructed Activity Restrictions/Additional Instructions: May remove bandage in 2 days May begin daily showers in 2 days No swimming or tub baths x 2 weeks No ointments on incision Report drainage, redness, heat, increased pain, fever, increasing shortness of breath or swelling to clinic No heavy lifting or pulling x2 weeks Use incentive spirometer frequently Discharge Attestations Time Spent in Discharge Care*: less than 30 min Specific Discharge Activities: Specific discharge activities: educating patient, discussing with pcp/other providers, discussing with behavioral health case manager/social workers/dc planners, documenting/other paperwork and evaluating patient/reviewing data Status at Discharge: Cognitive status at discharge: cognitively intact , Behavioral status at discharge: cooperative and independent in ADL's , Overall status at discharge: patient is progressing back to baseline Quality Metrics Clinical Quality Measures During this hospital stay, did patient experience: None Coding Level of Care Code Acute 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
[2020-03-06] MEDS: gabapentin 300 mg Capsule PO (08:07)
[2020-03-06] MEDS: pantoprazole DR 40 mg Tablet PO (08:07)
[2020-03-06] MEDS: aspirin 81 mg EC Tablet PO (08:07)
[2020-03-06] MEDS: metoprolol tartrate 50 mg Tablet PO (08:07)
--- NOTE | 2020-03-06 09:05 | PC.SOCIAL ---
Pg 2 IMM Explained to pt Pg 2 IMM. He verbally understands. No questions voiced. Provided pt a copy & left on pt's bedside table. Signed, dated, & timed a copy then placed in pt's chart.
--- NOTE | 2020-03-06 11:25 | PC.CHAP ---
Pastoral Care Encounter/Spiritual Assessment Type of Contact [] Declined registered private duty nurse visit [] Patient/Family/Request visit [] Outpatient visit [] Follow-up visit [] Physician referral [] Code/Alert [x]Routine visit [] Staff referral [] Actively dying [] Patient sleeping [] Family support [] [] Out of room [] Palliative care [] [] Receiving care in room [] Pre-surgical visit [] Trauma [] Long length of stay [] ICU visit [] Other: Relational/Emotional Strength [x] Patient feels connected with others/family/visitors/staff [] Distress [] Loneliness/isolation [] Abandonment Spirituality of Patient [x] Person of Ashley [] Attends Restorationism of their Ashley [x] Believes in Prayer [x] Reads Bible or Restorationist materials [] There are Spiritual issues to be addressed 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 Interventions [x] Prayer [x] Active listening [x] Non-anxious presence [x] Spiritual/emotional support [] Crisis/trauma care [x] Spiritual counseling [] Bereavement support [] Provided bereavement packet [] Provided Bible/devotional materials [] Provided toy/stuffed animal, coloring book to patient or family member [] Provided Communion [] Anointing/[place] [] Salvation [x] Completed spiritual assessment [] Other: Impact on Illness or Injury [] Angry [x] Fearful [x] Anxious [] Often cries [] Exhaustion [] Unable to work [] Unable to attend alevism [] Unable to walk/stand [] Unable to read [] Unable to drive [] Unable to eat/drink [] Unable to sleep [] Unable to be with family [] Patient intubated [] Other: Summary This is the 2nd visit [place] has had with this patient during subsequent hospitalizations. Patient is a professed believer in the person and work of K[place]. Patient is fearful and anxious about his health and pending lab results. Time spent with patient 20 minutes
== END 2020-03-06 11:41 | disposition home or self-care (01) | DRG 163 ==
LOC: ICU 20:57 → MEDSURG 03-05 12:00
PROVIDERS: Internal Medicine Nephrology; Admitting Provider Thoracic Surgery (Cardiothoracic Vascular Surgery); PCP Internal Medicine; Visit Provider Thoracic Surgery (Cardiothoracic Vascular Surgery)
PROC: 0BBD0ZX Excision of Right Middle Lung Lobe, Open Approach, Diagnostic (ICD-10-PCS; principal; 2020-03-03 14:35)
DX: R04.2 Hemoptysis (principal); N18.6 End stage renal disease; I12.0 Hypertensive chronic kidney disease with stage 5 chronic kidney disease or end stage renal disease; I42.9 Cardiomyopathy, unspecified; I28.8 Other diseases of pulmonary vessels; E11.22 Type 2 diabetes mellitus with diabetic chronic kidney disease; Z99.2 Dependence on renal dialysis; D63.1 Anemia in chronic kidney disease; Z79.82 Long term (current) use of aspirin; Z87.891 Personal history of nicotine dependence; J44.9 Chronic obstructive pulmonary disease, unspecified; I25.10 Atherosclerotic heart disease of native coronary artery without angina pectoris; E78.2 Mixed hyperlipidemia; I25.2 Old myocardial infarction; I27.20 Pulmonary hypertension, unspecified
CPT/HCPCS: 12345; 36415; 36416; 71045; 80048; 80500; 81001; 82150; 82945; 82962; 83615; 84157; 85025; 85610; 86850; 86900; 86920; 87070; 87075; 87205; 87340; 88112; 88305; 88309; 93005; 94664; 96375; J0131; J0690; J1885; J2001; J2270; J2370; J2405; J2704; J2710; J3010; J3490; J7030; P9016

== ENCOUNTER 2020-03-13 09:21 | Outpatient (CLI) | payer MEDICARE, MEDICAID, SELFPAY ==
--- NOTE | 2020-03-13 09:29 | XRR_ITS ---
PROCEDURE INFORMATION: Exam: XR Chest, 1 View Exam date and time: 03/13/2020 9:29 AM Age: 49 years old Clinical indication: Condition or disease; Other: F/u RT lung bx; Prior surgery; Additional info: Hemoptysis TECHNIQUE: Imaging protocol: XR of the chest Views: 1 view. COMPARISON: CR XR chest 1V portable [id number] 03/06/2020 6:10 AM FINDINGS: Lungs: As compared to preceding examination, there is interval improved aeration of the lower lobes. Patchy bibasilar opacities, right greater than left, persist. Pleural space: There is focal pleural thickening/loculated fluid along the right inferolateral chest. There is no pneumothorax. Heart/Mediastinum: Unremarkable. No cardiomegaly. Bones/joints: Unremarkable. XR/XR chest 1V [id number] IMPRESSION: Some interval improved aeration of the lower lobes, with patchy bibasilar opacities persisting, right greater than left, and focal right inferolateral pleural thickening/loculated fluid. No overt pneumothorax.
== END 2020-03-13 09:22 | disposition home or self-care (01) ==
LOC: RAD 09:25
PROVIDERS: PCP Internal Medicine; Visit Provider Thoracic Surgery (Cardiothoracic Vascular Surgery)
DX: R04.2 Hemoptysis (principal)
CPT/HCPCS: 71045

== ENCOUNTER 2020-03-13 09:25 | Outpatient (CLI) | payer MEDICARE, MEDICAID, SELFPAY ==
[2020-03-18 11:36] LABS: Tissue Transglutaminse AB IGA <1 U/mL; Tissue Transglutaminse AB IGG 3 U/mL
== END 2020-03-13 09:26 | disposition home or self-care (01) ==
LOC: LAB 09:27
PROVIDERS: PCP Internal Medicine; Visit Provider Internal Medicine Critical Care Medicine
DX: R04.2 Hemoptysis (principal)
CPT/HCPCS: 36415; 71045; 83516

== ENCOUNTER 2020-03-20 15:52 | Outpatient (CLI) | payer MEDICARE, MEDICAID, SELFPAY ==
--- NOTE | 2020-03-20 16:53 | XRR_ITS ---
PROCEDURE INFORMATION: Exam: XR Chest, 2 Views Exam date and time: 03/20/2020 4:53 PM Age: 49 years old Clinical indication: Shortness of breath; Prior surgery; Surgery type: Chest and lung; Patient HX: Recent lung biopsy TECHNIQUE: Imaging protocol: XR of the chest Views: 2 views. COMPARISON: CR XR chest 1V [id number] 03/13/2020 9:43 AM FINDINGS: Lungs: Asymmetric bibasilar airspace disease, right greater than left. Interstitial prominence. Pleural space: Asymmetric pleural effusions, left greater than right, with marked interval enlargement of left pleural effusion. Additional right pleural thickening. Heart/Mediastinum: No cardiomegaly. Bones/joints: Cervical spine fusion. Degenerative change and ligamentous calcification. XR/XR chest 2V* [id number] IMPRESSION: 1. Asymmetric pleural effusions, left greater than right, with marked interval enlargement of left pleural effusion. 2. Asymmetric bibasilar airspace disease, right greater than left.
== END 2020-03-20 15:53 | disposition home or self-care (01) ==
LOC: RAD 15:55
PROVIDERS: PCP Internal Medicine; Visit Provider Internal Medicine Critical Care Medicine
DX: R06.02 Shortness of breath (principal); J90 Pleural effusion, not elsewhere classified
CPT/HCPCS: 71046

== ENCOUNTER 2020-04-10 09:17 | Inpatient (IN) | payer MEDICARE, MEDICAID, SELFPAY ==
[2020-04-10] VITALS (29 sets, daily range): BP systolic 146–182; BP diastolic 87–122; PULSE 63–100; RESP 9–25; TEMP 36.1–36.3; O2SAT 89–98; BMI 27.2
--- NOTE | 2020-04-10 09:34 | CT_ITS ---
WS: [id number] CT abdomen pelvis w con* [id number] REASON FOR EXAM: diarrhea IV CONTRAST ADMINISTERED: Omnipaque 300, 95 mL. TOTAL EXAM DLP: 1114.[address] scans at [facility] use at least one of these dose optimization techniques: automat ed exposure control; mA and/or kV adjustment per patient size (includes targeted exams where dose is matched to clinical indication); or iterative reconstruction. FINDINGS: In the mid lobe area of the right lobe there is evidence of 2.87 cm density that has the ap pearance of a mass there is calcification seen along the lesion. There is arteriosclerotic changes of the heart. There is bilateral pleural effusion worse on the left side. The liver appear to be essentially normal. The gallbladder showed no stones and was of normal size. The spleen shows fluid and or ascites. The pancreas head, body, tail were normal. The right and left adrenal gland shows normal size on the right the left is enlarged to 4.27 cm. The aorta inferior vena cava are normal. Small kidneys are seen bilaterally but there is no masses seen in the kidneys. No cyst or hydronephro sis. Scattered fluid throughout the abdomen is noted. The right colon suggests previous resection. The small bowel patterns were normal. The descending colon shows extensive diverticulosis. And there is considerable fluid seen in the pelv is. The's subcutaneous area also suggests fluid are edema. The pelvis bony structures were normal. The lumbar spine shows disc bulge changes L5-S1 and degenerate changes. CT/CT abdomen pelvis w con* [id number] IMPRESSION: Suspect a small mass defect in the right lung There is bilateral pleural effusion There is left-sided adrenal mass There is ascites in the abdomen. Very small kidneys but appear to be functioning Suspect resection of the right colon. Extensive diverticulosis of the descending sigmoid colon. Suspect disc bulge L5-S1. A generalized anasarca is suspected.
--- NOTE | 2020-04-10 09:37 | ED_ITS ---
HPI - Nausea/Vomiting/Diarrhea General: Chief complaint: Nausea/Vomiting/Diarrhea Stated complaint: DIARRHEA X 3 DAYS Time Seen by Provider: 04/10/20 09:27 History of Present Illness: HPI Narrative: Patient states that he has had multiple episodes of diarrhea over the last several days. He states that there is also rectal bleeding. He says he is not sure if the blood is from a raw rectum or from an internal source. Patient also complains of nausea and has had a few episodes of vomiting. Patient is on dialysis but has missed his last 3 appointments because of illness. MD elicited complaint: nausea, vomiting and diarrhea Onset (ago): day(s) Description of diarrhea: blood, watery and semi-solid Associated nausea: Yes Associated abdominal pain: Yes Location of pain: Diffuse Pain consistency: intermittent Severity: moderate Quality: cramping Exacerbating factors: eating Relieving factors: none Context: recent surgery/procedure Associated symtoms: Reports nausea Review of Systems General: Reports: 10 or more systems reviewed and unremarkable except in HPI and below GI: Reports: nausea, vomiting, diarrhea and hematochezia PFSH ED PFSH: Medical History Atherosclerotic heart disease of [place] coronary artery without angina pectoris Benign essential hypertension Cardiomyopathy CHF NYHA class III (symptoms with mildly strenuous activities) COPD (chronic obstructive pulmonary disease) Diabetes mellitus Dyslipidemia Fistula Left Wrist Headache Hemoptysis Mixed hyperlipidemia Nicotine dependence, cigarettes, uncomplicated Non-ST elevation (NSTEMI) myocardial infarction Pulmonary hypertension Surgical History H/O elbow surgery H/O hand surgery H/O neck surgery History of back surgery History of intravascular stent placement Family History Grandmother , In her 50's Myocardial infarction Father Diabetes Mother Diabetes Social History Smoking and tobacco status: former smoker Quit status (tobacco): has quit using tobacco Year quit tobacco: 1999 - 2PPD x 20 Years Alcohol intake: current Alcohol intake frequency: holidays/special occasions only Lives independently: Yes Household members: spouse Marital status: Current occupational status: disabled History of recent travel: No Current gender identity: Male Physical Exam Const: COMMON NORMALS: average body habitus and alert GENERAL APPEARANCE: in distress, ill appearing and appears older than stated age ORIENTATION/CONSCIOUSNESS: Yes awake, Yes oriented to person, Yes oriented to place and Yes oriented to time HENMT: COMMON NORMALS: normocephalic, atraumatic, hearing grossly normal bilaterally, external ears normal, EAC's normal, TM's normal bilaterally, Normal external nose present, Normal nasal mucous membranes and turbinates present, moist oral mucous membranes, oropharynx normal, dentition normal and gingiva normal HEAD & SCALP: normocephalic and atraumatic NOSE: Normal external nose present and Normal nasal mucous membranes and turbinates present EXTERNAL EAR: Yes external ears normal EXTERNAL AUDITORY CANAL: EAC's normal TYMPANIC MEMBRANE: TM's normal bilaterally Eye: COMMON NORMALS: Equal, round and reactive pupils present, EOMs intact bilaterally, conjunctivae normal, no scleral icterus, no papilledema, normal visual uhnt by confrontation and fundi normal bilaterally CONJUNCTIVA: Yes conjunctivae normal PUPIL: Yes Equal, round and reactive pupils present DIRECT OPHTHALMOSCOPY: Yes no papilledema and Yes fundi normal bilaterally Neck/C-Spine: COMMON NORMALS: full ROM, no lymphadenopathy, supple, no meningeal signs, no JVD, Thyroid normal and No carotid bruits THYROID: Thyroid normal Chest: COMMONS NORMALS: normal inspection of the chest and normal palpation of entire chest wall Resp: COMMON NORMALS: normal respiratory effort, No retractions, No use of accessory muscles, clear to auscultation bilaterally and percussion normal AUSCULTATION: clear to auscultation bilaterally PERCUSSION: percussion normal Cardio: COMMON NORMALS: no JVD, regular rate, regular rhythm, S1 normal heart sound present, S2 normal heart sound present, No gallops present (Cardio), No clicks present (Cardio), No murmurs present (Cardio), No rub (Cardio) and Peripheral pulses 2+ throughout RATE: regular rate RHYTHM: regular rhythm HEART SOUNDS: S1 normal heart sound present and S2 normal heart sound present PERIPHERAL PULSES: Peripheral pulses 2+ throughout GI: COMMON NORMALS: Normal to inspection, nondistended, normoactive bowel sounds present, Soft to palpation, non-tender, No hepatosplenomegaly present, no masses and no bruits PALPATION: Yes Soft to palpation and Yes No hepatosplenomegaly present Back/Pelvis: COMMON NORMALS: thoracic and lumbar spine normal to inspection, no thoracic nor lumbar tenderness, thoraco-lumbar ROM normal and straight leg raise negative bilaterally Extremity: COMMON NORMALS: normal to inspection, full ROM, capillary refill normal, no joint enlargement, no clubbing, cyanosis or edema, no calf tenderness and no pedal edema Neuro: SENSORIUM/ORIENTATION: Yes alert, Yes oriented to person, Yes oriented to place, Yes oriented to time and Yes somnolent MENINGEAL SIGNS: Yes no meningeal signs Skin: COMMON NORMALS: no rashes or lesions noted, no wounds, no jaundice and no mottling GENERAL SKIN EXAM: no rashes or lesions noted Course Vital Signs: Vital signs: Vital Signs Temperature 97.0 F L 04/10/20 09:23 Pulse Rate 78 04/10/20 09:23 Respiratory Rate 16 04/10/20 09:23 Blood Pressure 177/120 04/10/20 09:23 Pulse Oximetry 97 04/10/20 09:23 MDM - Nausea/Vomiting/Diarrhea Lab Data: Labs: Lab Results 04/10/20 04/10/20 04/10/20 Range/Units 10:03 10:03 10:03 WBC 16.0 H (4.0-10.0) 10^3/ uL RBC 3.80 L (4.1-5.3) 10^6/u L Hgb 12.5 (11.7-16.6) g/dL Hct 37.8 L (42.0-52.0) % MCV 99.5 H (80-94) fL MCH 32.9 (28.0-34.0) pg MCHC 33.1 (30.0-36.0) g/dL RDW 18.2 H (12.1-15.1) % Plt Count 152 (130-400) 10^3/c mm MPV 10.3 (7.4-10.4) fL Neut % (Auto) 87.7 % Lymph % (Auto) 4.5 % [place] % (Auto) 7.0 % Eos % (Auto) 0.0 % Baso % (Auto) 0.1 % Neut # (Auto) 14.0 H (1.8-7.7) 10^3/u L Lymph # (Auto) 0.7 L (0.8-4.8) 10^3/u L [place] # (Auto) 1.1 H (0.2-0.9) 10^3/u L Eos # (Auto) 0.0 (0.0-0.8) 10^3/u L Baso # (Auto) 0.0 (0.0-0.1) 10^3/u L Nucleated RBC % (a uto) 0 % Nucleated RBCs # 0.0 /100WBC Sodium 134 L (136-145) mmol/L Potassium 6.6 H* (3.5-5.1) mmol/L Chloride 89 L (98-107) mmol/L Carbon Dioxide 16 L (22-29) mmol/L Anion Gap 35.6 H (5-19) BUN 135 H* D (6-20) mg/dL Creatinine 12.7 H* (0.7-1.2) mg/dL GFR Calculation 4.2 L (90-130) mL/min Glucose 133 H (65-115) mg/dL Calculated Osmolal ity 283 L (285-295) mOsm/k g Lactate 3.8 H (0.5-2.2) mmol/L Calcium 9.0 (8.5-10.5) mg/dL Phosphorus 10.7 H* (2.5-4.5) mg/dL Magnesium 2.8 H (1.7-2.3) mg/dL Total Bilirubin 2.3 H (0.15-1.2) mg/dL AST 465 H (0-40) U/L ALT 517 H (0-41) U/L Alkaline Phosphata se 52 (40-130) IU/L Total Protein 6.9 (6.6-8.7) g/dL Albumin 4.2 (3.5-5.2) g/dL Globulin 2.7 (1.3-4.6) g/dL Lipase 82 H (13-60) U/L Discharge Plan Discharge Patient Disposition: Admitted As Inpatient Clinical Impression: Hyperkalemia, Lactic acidosis, Dehydration, Hepatitis Chronic renal failure Qualifiers: Chronic kidney disease stage: unspecified stage Qualified Code(s): N18.9 - Chronic kidney disease, unspecified COPD (chronic obstructive pulmonary disease) Qualifiers: COPD type: unspecified COPD Qualified Code(s): J44.9 - Chronic obstructive pulmonary disease, unspecified Acute pancreatitis Qualifiers: Pancreatitis type: unspecified pancreatitis type Acute pancreatitis complication: unspecified Qualified Code(s): K85.90 - Acute pancreatitis without necrosis or infection, unspecified Condition: Fair Referrals: Michael Eubanks DO [Primary Care Provider] - Coding Level of Care Code 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
[2020-04-10] MEDS: ondansetron 2 mg/ML SDV 2 mL 4 MG IVP ×3 (10:05→19:15)
[2020-04-10 10:12] LABS: Basophils % 0.1 %; Hematocrit 37.8 % (42.0-52.0); Hemoglobin 12.5 g/dL (11.7-16.6); Lymphocytes # 0.7 10^3/uL (0.8-4.8); Lymphocytes % 4.5 %; Mean Corpuscular HGB Conc 33.1 g/dL (30.0-36.0); Mean Corpuscular Hemoglobin 32.9 pg (28.0-34.0); Mean Corpuscular Volume 99.5 fL (80-94); Mean Platelet Volume 10.3 fL (7.4-10.4); Monocytes # 1.1 10^3/uL (0.2-0.9); Neutrophils % 87.7 %; Nucleated Red Blood Cells % 0 %; Platelet Count 152 10^3/cmm (130-400); Red Cell Distribution Width 18.2 % (12.1-15.1)
[2020-04-10 10:27] LABS: Alanine Aminotransferase 517 U/L (0-41); Albumin Level 4.2 g/dL (3.5-5.2); Alkaline Phosphatase 52 IU/L (40-130); Anion Gap 35.6 (5-19); Aspartate Amino Transferase 465 U/L (0-40); Carbon Dioxide 16 mmol/L (22-29); Chloride 89 mmol/L (98-107); Globulin 2.7 g/dL (1.3-4.6); Glomerular Filtration Rate 4.2 mL/min (90-130); Glucose 133 mg/dL (65-115); Lipase 82 U/L (13-60); Magnesium 2.8 mg/dL (1.7-2.3); Sodium 134 mmol/L (136-145); Total Bilirubin 2.3 mg/dL (0.15-1.2); Total Protein 6.9 g/dL (6.6-8.7)
[2020-04-10 10:28] LABS: Lactate (Lactic Acid level) 3.8 mmol/L (0.5-2.2)
[2020-04-10] MEDS: iohexol 300 mg/mL 100 mL Btl IV (10:43)
[2020-04-10 10:52] LABS: Blood Urea Nitrogen 135 mg/dL (6-20); Osmolality Calculated 283 mOsm/kg (285-295); Phosphorus 10.7 mg/dL (2.5-4.5); Potassium 6.6 mmol/L (3.5-5.1)
--- NOTE | 2020-04-10 11:19 | P.HP_ITS ---
Providers/Chief Complaint Admitting Physician: Ceci Benton DO Primary Care Provider: Michael Eubanks DO Chief Complaint: DIARRHEA X 3 DAYS History of Present Illness Marlon Dorantes is a 49 year old male with a past medical history of hypertension, end-stage renal disease on hemodialysis, coronary artery disease, systolic congestive heart failure and recent diagnosis of idiopathic pulmonary hemosiderosis. Patient follows with nephrology as well as fatback trimmer, Dr. Macias. He reported that he has been feeling poorly over the past 3 to 4 days. Reports increased nausea vomiting and extreme diarrhea. He stated that no one at home is been sick, he is on city water. Reports that he had no ingestion of any uncooked or poorly prepared foods that he is aware of. He states that he has been on steroids recently due to recent diagnosis of idiopathic pulmonary hemosiderosis. Patient reports that he has had some occasional bright red blood per rectum, no melanotic stools, no coffee-ground emesis. He states that his diarrhea began getting worse on Tuesday and is been worse for the past 3 days. He states that he is felt generally bloated across his abdomen with generalized aching discomfort. No sharp or stabbing pain, no localized pain. Stated that he has had significant increase in swelling in the lower extremities and throughout his body. He reports that his last session of dialysis was on Tuesday, he had not been feeling well so therefore did not continue with any sessions throughout this week. Patient denies any exposure to [place] VID-19, reported that he was tested by his primary care provider approximately 1 to 2 months ago and was negative at that time. He states that he has chronic hemoptysis, with recent addition of steroids he reports that he seems to have more bright red blood, no increase in sputum or blood production. Patient was seen and evaluated in the emergency department noted to have fluid overload with worsening renal failure and hyperkalemia. Noted to have transaminitis with hyperbilirubinemia and abdominal pain with diffuse anasarca. Called for admission, requested nephrology consultation Review of Systems Const: Denies: fever(s) or chills Eyes: Denies: change in vision ENMT: Denies: nasal congestion Card: Reports: chest pain and edema; Denies: palpitations Resp: Reports: dyspnea, hemoptysis and other (Orthopnea, chronic hemoptysis, shortness of breath); Denies: productive cough GI: Reports: abdominal pain, nausea, vomiting, diarrhea and hematochezia; Denies: constipation or melena : Reports: dysuria and other (Reports chronic dysuria that is unchanged, continues to make urine despite ESRD); Denies: hematuria Musc: Reports: muscle cramps; Denies: extremity pain Skin/Breast: Reports: jaundice; Denies: rash or new lesions Neuro: Denies: headache(s) or dizziness Psych: Denies: anxiety or depression Endo: Denies: polyuria or hot flashes Pranav/Lymph: Denies: easy bruising or easy bleeding Medications/Allergies Home Medications Medication Instructions Recorded Confirmed Last Taken Type amlodipine 10 mg tablet 10 mg PO DAILY 10/31/19 04/10/20 04/09/20 History aspirin 81 mg tablet,delayed 81 mg PO DAILY 10/31/19 04/10/20 04/09/20 History release ferric citrate 210 mg iron tablet 420 mg PO TID 10/31/19 04/10/20 04/09/20 History furosemide 20 mg tablet 60 mg PO QAM tab 10/31/19 04/10/20 04/09/20 History gabapentin 300 mg capsule 100 mg PO BID 10/31/19 04/10/20 04/09/20 History nitroglycerin 0.4 mg sublingual 0.4 mg SUBLINGUAL Q5M PRN 10/31/19 04/10/20 Unknown History tablet metoprolol tartrate 50 mg tablet 50 mg PO DAILY tab 11/09/19 04/10/20 04/09/20 History clonidine HCl 0.1 mg PO DAILY PRN 01/01/20 04/10/20 Unknown History losartan 25 mg tablet 25 mg PO DAILY #90 tab 02/01/20 04/10/20 03/01/20 Rx RenaPlex-D 1 tab PO DAILY 02/28/20 04/10/20 04/09/20 History sildenafil 50 mg PO PRN PRN 02/28/20 04/10/20 Unknown History oxycodone-acetaminophen 5 mg-325 1 tab PO Q6H PRN 7 Days #28 tab 03/20/20 04/10/20 04/09/20 Rx mg tablet prednisone 20 mg tablet 40 mg PO DAILY 30 Days #120 tab 03/28/20 04/10/20 04/09/20 Rx Allergies Allergy/AdvReac Type Severity Reaction Status Date / Time azithromycin Allergy ADR-Chest Verified 03/20/20 15:25 Pain carvedilol AdvReac ADR-Dizzine Verified 03/20/20 15:25 ss PFSH Acute PFSH: Medical History (Updated 04/10/20 @ 12:08 by Ceci Benton DO) Atherosclerotic heart disease of [place] coronary artery without angina pectoris Benign essential hypertension Cardiomyopathy CHF NYHA class III (symptoms with mildly strenuous activities) COPD (chronic obstructive pulmonary disease) Diabetes mellitus Dyslipidemia Fistula Left Wrist Headache Hemoptysis Hemoptysis Mixed hyperlipidemia Nicotine dependence, cigarettes, uncomplicated Non-ST elevation (NSTEMI) myocardial infarction Pulmonary hypertension Right-sided chest pain Surgical History H/O elbow surgery H/O hand surgery H/O neck surgery History of back surgery History of intravascular stent placement History of thoracotomy Family History Grandmother , In her 50's Myocardial infarction Father Diabetes Mother Diabetes Social History Smoking and tobacco status: former smoker Quit status (tobacco): has quit using tobacco Year quit tobacco: 1999 - 2PPD x 20 Years Alcohol intake: current Alcohol intake frequency: holidays/special occasions only Lives independently: Yes Household members: spouse Marital status: Current occupational status: disabled History of recent travel: No Current gender identity: Male Vitals/I&O/Wt Last Vital Signs Temp 97.0 F L 04/10/20 09:23 Pulse 78 04/10/20 09:23 Resp 16 04/10/20 09:23 BP 177/120 04/10/20 09:23 Pulse Ox 97 04/10/20 09:23 Weight last 48 hrs Weight 86.183 kg Physical Exam Const: COMMON NORMALS: patient oriented x3 and alert GENERAL APPEARANCE: cooperative and ill appearing ORIENTATION/CONSCIOUSNESS: Yes awake, Yes oriented to person, Yes oriented to place and Yes oriented to time HENMT: COMMON NORMALS: normocephalic and atraumatic HEAD & SCALP: normocephalic and atraumatic Eye: COMMON NORMALS: Equal, round and reactive pupils present PUPIL: Yes Equal, round and reactive pupils present OTHER: Scleral icterus Neck/C-Spine: COMMON NORMALS: supple GENERAL: Yes normal visual inspection Resp: AUSCULTATION: no rhonchi and no wheezes OTHER: Diminished breath sounds bilaterally, worse in the bases, tachypneic, no appreciable wheezing Cardio: COMMON NORMALS: regular rate and regular rhythm RATE: regular rate RHYTHM: regular rhythm OTHER: faint systolic murmur GI: OTHER: Tenderness to palpation in the RUQ with with mild tenderness to palpation on the Left side of the abdomen. Hypoactive bowel sounds. : COMMON NORMALS: Yes no CVA tenderness BLADDER/KIDNEY EXAM: Yes no CVA tenderness Extremity: OTHER: 3+ pitting edema in the LE bilaterally Neuro: COMMON NORMALS: patient oriented x3, CN's II-XII intact bilaterally, moves all extremities and no focal motor deficits SENSORIUM/ORIENTATION: Yes alert, Yes oriented to person, Yes oriented to place and Yes oriented to time SPEECH: speech normal Psych: COMMON NORMALS: mental status grossly normal and cooperative Data : 04/10/20 10:03 04/10/20 10:03 Micro: Microbiology 04/10/20 10:03 Blood Culture - Preliminary Blood SPECIMEN COLLECTED 04/10/20 09:56 Blood Culture - Preliminary Blood SPECIMEN COLLECTED CT Abd/Pel: I personally reviewed and interpreted this imaging study as follows: Radiologist's impression: IMPRESSION: Suspect a small mass defect in the right lung There is bilateral pleural effusion There is left-sided adrenal mass There is ascites in the abdomen. Very small kidneys but appear to be functioning Suspect resection of the right colon. Extensive diverticulosis of the descending sigmoid colon. Suspect disc bulge L5-S1. A generalized anasarca is suspected. CXR: I personally reviewed and interpreted this imaging study as follows: Radiologist's impression: IMPRESSION: 1. Asymmetric pleural effusions, left greater than right, with marked interval enlargement of left pleural effusion. 2. Asymmetric bibasilar airspace disease, right greater than left. A&P Assessment and plan (1) Abdominal pain: Diffuse abdominal pain reported as a burning sensation Elevated lactic acid, however this is likely secondary to renal function. Patient has diffuse anasarca which could be contributing to his pain due to abdominal distention. CT scan of the abdomen and pelvis performed as noted above. Patient with transaminitis and hyperbilirubinemia which is new, will further evaluate with right upper quadrant ultrasound and consider MRCP. Lipase is very slightly elevated but no CT evidence of any acute pancreatitis. Stools cultures ordered and pending, C. difficile toxin ordered and pending Will place on PPI Nonspecific tenderness, some increased tenderness in the right upper quadrant, however patient also has diffuse tenderness throughout his abdomen. Continue to monitor symptoms closely as fluid comes off with dialysis and if continued pain will further image the abdomen. Acute hepatitis panel ordered and pending Close monitoring in the ICU Will follow up with RUQ US and consider paracentesis with fluid studies Status: Acute (2) ESRD (end stage renal disease): End-stage renal disease on home dialysis Tuesday, Tuesday, Tuesday, Tuesday. Patient reports that his last session of dialysis was on Tuesday. He reported that he has not been compliant with dialysis at home since that time due to not feeling well. Nephrology, Dr. Beasley consulted, appreciate recommendations and assistance in patient's care. Plan for dialysis today Patient with hyperkalemia on admission we will give calcium gluconate, continue to monitor closely on telemetry Patient appears to be acutely fluid overloaded Status: Acute (3) Idiopathic pulmonary hemosiderosis: On chronic steroids prednisone 40 mg daily, this was prescribed by patient's fatback trimmer. Recently had bronchoscopy and biopsies and thoracotomy performed and pathology report sent to [facility], concern for idiopathic pulmonary hemosiderosis. Discussed with Dr. Macias and will continue on patient's prednisone home dose at this time. Blood pressure and heart rate remained stable therefore will hold off on stress dosing at this time. Status: Acute (4) Pulmonary hypertension: Continue with current medications, continue to remove fluid with dialysis Status: Acute (5) CHF NYHA class III (symptoms with mildly strenuous activities): With acute exacerbation and anasarca Dialysis as noted above LVEF of 25 to 30% based on last imaging Status: Acute Qualifiers: Congestive heart failure chronicity: chronic Congestive heart failure type: systolic Qualified Code(s): I50.22 - Chronic systolic (congestive) heart failure (6) Dyslipidemia: Status: Acute (7) Benign essential hypertension: Elevated blood pressure in the emergency department, continue amlodipine 10 mg daily, patient is on Lasix 60 mg daily, remains on losartan 25 mg daily will hold at this time due to worsening renal function, metoprolol 50 mg daily patient is also on clonidine 0.1 mg daily as needed Plan for dialysis for fluid removal today Status: Acute (8) Atherosclerotic heart disease of [place] coronary artery without angina pectoris: Coronary artery disease history of PCI Followed by Dr. Landis Continued on Lasix and metoprolol, losartan on hold due to worsening renal function. Status: Acute Qualifiers: [place] vs. transplanted heart: [place] heart Qualified Code(s): I25.10 - Atherosclerotic heart disease of [place] coronary artery without angina pectoris (9) Metabolic acidosis: Status: Acute Additional A&P Information Intractable nausea, vomiting, diarrhea: As noted CT scan of the abdomen and pelvis performed and as noted above, further evaluate with stool studies. Right upper quadrant ultrasound ordered due to concern for transaminitis with hyperbilirubinemia. Will follow up with hepatitis panel. Consider further i maging or consultation if indicated. Bilateral pleural effusions: Secondary to noncompliance with dialysis due to not feeling well Leukocytosis: Likely secondary to steroids, blood cultures ordered and pending, due to patient's immunocompromised state will empirically start on antibiotics. 2.8 cm density in the mid lobe of the right lung: Recommend further monitoring and follow-up, will hold off on further imaging at this time. Severe diverticulosis without evidence of diverticulitis Transaminitis with hyperbilirubinemia: Checking a hepatitis panel, right upper quadrant ultrasound, PT/INR added Hyperkalemia in the setting of end-stage renal disease on dialysis: Calcium gluconate ordered, plan for dialysis today Chronic immunosuppression with steroid use: Recently started on steroids due to concern for idiopathic pulmonary hemosiderosis DVT prophylaxis: SCDs, no pharmacologic prophylaxis due to concern for continued hemoptysis Diet: Liquid diet after right upper quadrant ultrasound. If unable to tolerate will keep n.p.o. with bowel rest. CODE STATUS: Full code Attestations Medical Necessity Statement*: Patient requires hospitalization due to anasarca, hyperkalemia in the setting of end-stage renal disease, bilateral pleural effusions, intractable nausea vomiting and abdominal pain with acute transaminitis and hyperbilirubinemia. Expected stay greater than 2 midnights. 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 transplanted heart: [place] heart Metabolic acidosis E87.2
[2020-04-10 11:51] LABS: INR 1.29 (0.8-1.2)
--- NOTE | 2020-04-10 11:53 | US_ITS ---
WS: [id number] ABDOMINAL ULTRASOUND LIMITED REASON FOR VISIT: transaminitis, n/v/d/abd pain, hyperbilirubinemia TECHNIQUE: Grayscale and Doppler ultrasound examination of the abdomen. FINDINGS: Pancreas: Normal Abdominal aorta and IVC: Normal Liver: Liver measures 18.0 cm in length. Coarse echo texture through the liver consistent with fatty infiltration. A small amount of ascites is seen adjacent to the liver. Hepatopedal circulation presen t. Gallbladder: Gallbladder wall thickness measures 0.4 mm. No definite stones are seen. And bile duct m easures 0.75 cm. Marked edema of the wall of the gallbladder. Right kidney: Right kidney measures 7.6 cm x 4.1 cm x 4.0 cm. Right kidney cortex measures 1.0 cm. D ense echotexture in the kidney consistent with renal failure. US/US gall bladder [id number] IMPRESSION: Fatty infiltration of the liver. Small amount of ascites. Markedly thickened wall of the gallbladder but no stones present suggest acute cholecystitis. The kidney is small and suggests chronic renal failure.
[2020-04-10] MEDS: calcium gluconate 0.1 gm/mL 10% SDV 10mL 1 GM IVP (12:53)
[2020-04-10] MEDS: metoprolol tartrate 50 mg Tablet PO (12:59)
[2020-04-10] MEDS: oxyCODONE-APAP 5-325 mg Tablet 1 TAB PO (12:59)
[2020-04-10] MEDS: predniSONE 20 mg Tablet 40 MG PO (12:59)
--- NOTE | 2020-04-10 13:44 | ECG_ITS ---
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 Measurements Intervals [place] Rate: 86 P: 12 AR: 223 QRS: -7 QRSD: 114 T: 146 QT: 414 QTc: 496 Interpretive Statements SINUS RHYTHM WITH FIRST DEGREE AV BLOCK MODERATE INTRAVENTRICULAR CONDUCTION DELAY ST DEVIATION AND MODERATE T-WAVE ABNORMALITY, CONSIDER LATERAL ISCHEMIA WARNING: DATA QUALITY MAY AFFECT INTERPRETATION Compared to ECG 02/28/2020 14:34:26 First degree AV block now present Intraventricular conduction delay now present T-wave abnormality still present Possible ischemia still present Electronically Signed On 04-10-2020 16:14:59 CDT by Sun Valle M.D. [id number]
--- NOTE | 2020-04-10 14:15 | P.PN_ITS ---
Subjective Subjective: Interval history: Marlon is coming in with diarrhea and weakness increasing for the last few days. Some LE edema but no other features of volume overload. Bp a little high. Last got dialysis on Tuesday at home AVF working well, uses button hole technique Vitals/I&O/Wt Last Vital Signs Temp 97.3 F L 04/10/20 13:30 Pulse 86 04/10/20 14:00 Resp 15 04/10/20 14:00 BP 165/119 04/10/20 14:00 Pulse Ox 93 04/10/20 14:00 Weight last 48 hrs Weight 86.183 kg Physical Exam Narrative: EXAM NARRATIVE: Exam performed with the aid of the bedside RNs Constitutional: Awake, conversant, jovial HEENT: Wet mucosa, no jvp, non icteric Lungs: Bilaterally clear without discernible wheeze, rales in all lung zones CVS: S1 S2, no murmurs Abdo: Soft, BS ok Ext 4: Minimal edema, peripheral perfusion with no cyanosis Neurological: Grossly non-focal Data : 04/10/20 10:03 04/10/20 10:03 Micro: Microbiology 04/10/20 10:03 Blood Culture - Preliminary Blood SPECIMEN COLLECTED 04/10/20 09:56 Blood Culture - Preliminary Blood SPECIMEN COLLECTED A&P Additional A&P Information 1. ESRD - for HD today - 2K, UF 2-3L - dose meds for eGFR < 15 on dialysis 2. Lytes - will correct with dialysis, will order labs post HD 3. 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 Hypertension - DC Amlodipine in case it is contributing to edema - Hydralazine 50mg po bid 5. Diarrhea - mgmt per Dr Aburto - w/u requested Attestations Medical Necessity Statement*: eval for ESRD Coding Level of Care Code Acute Carton Machine Operator for Chg Fwjaycee
[2020-04-10 14:44] LABS: Troponin(5th) Baseline 126 ng/L (0-15)
--- NOTE | 2020-04-10 14:52 | ECG_ITS ---
[facility] Test Date: 2020-04-10 Pat Name: Marlon Dorantes Department: Room: ICU07 Gender: Male Anesthesiologist Assistant: : 1970 Requested By: Ceci Benton Order Number: [id number] Tiffani MD: Sun Valle M.D. Measurements Intervals [place] Rate: 68 P: 22 NV: 223 QRS: -11 QRSD: 126 T: 124 QT: 461 QTc: 493 Interpretive Statements SINUS RHYTHM WITH MARKED SINUS ARRHYTHMIA WITH FIRST DEGREE AV BLOCK MODERATE INTRAVENTRICULAR CONDUCTION DELAY [110+ ms QRS DURATION] ST DEVIATION AND MODERATE T-WAVE ABNORMALITY, CONSIDER LATERAL ISCHEMIA Compared to ECG 04/10/2020 13:54:21 No significant changes Electronically Signed On 04-10-2020 16:26:44 CDT by Sun Valle M.D. [id number]
--- NOTE | 2020-04-10 15:19 | PM.CONSULT ---
Providers/Reason For Consult Consulting Physican/Specialty*: Clay Palafox MD Reason for Consult*: Acute cholecystitis Requesting Physcian: Dr. Benton Attending Physician: Ceci Benton DO Primary Care Provider: Michael Eubanks DO History of Present Illness History of Present Illness Chief Complaint: My tummy hurts History of present illness: Mr. Marlon Dorantes is a pleasant pleasant 49 year old male with multiple medical comorbidities including end-stage renal disease on chronic hemodialysis admitted to the hospital service with history of abdominal pain mostly in the upper abdomen and towards the right side according to the patient the only thing changed that he was started on prednisone recently for lung condition based on the biopsy that was obtained and showed hemosiderosis. Patient reports nausea vomiting and diarrhea and he describes the pain is more dull aching without being referred, sleeping make it better and otherwise if he is awake he continues to hurt, he denies any recent travel or food poisoning, and denies also recent intake of any antibiotics. Patient was found to have transaminitis and hyperbilirubinemia with a CT scan findings below CT scan of the abdomen and pelvis: FINDINGS: In the mid lobe area of the right lobe there is evidence of 2.87 cm density that has the appearance of a mass there is calcification seen along the lesion. There is arteriosclerotic changes of the heart. There is bilateral pleural effusion worse on the left side. The liver appear to be essentially normal. The gallbladder showed no stones and was of normal size. The spleen shows fluid and or ascites. The pancreas head, body, tail were normal. The right and left adrenal gland shows normal size on the right the left is enlarged to 4.27 cm. The aorta inferior vena cava are normal. Small kidneys are seen bilaterally but there is no masses seen in the kidneys. No cyst or hydronephrosis. Scattered fluid throughout the abdomen is noted. The right colon suggests previous resection. The small bowel patterns were normal. The descending colon shows extensive diverticulosis. And there is considerable fluid seen in the pelvis. The's subcutaneous area also suggests fluid are edema. The pelvis bony structures were normal. The lumbar spine shows disc bulge changes L5-S1 and degenerate changes. CT/CT abdomen pelvis w con* [id number] IMPRESSION: Suspect a small mass defect in the right lung There is bilateral pleural effusion There is left-sided adrenal mass There is ascites in the abdomen. Very small kidneys but appear to be functioning Suspect resection of the right colon. Extensive diverticulosis of the descending sigmoid colon. Suspect disc bulge L5-S1. A generalized anasarca is suspected. Ultrasound of liver and gallbladder: Fatty infiltration of the liver. Small amount of ascites. Markedly thickened wall of the gallbladder but no stones present suggest acute cholecystitis. The kidney is small and suggests chronic renal failure. General surgery was consulted for further evaluation and potential recommendation Upon further inquiry patient denies any history of fatty dyspepsia or previously diagnosed gallbladder disease Meds/Allergies Home Medications and Allergies Home Medications Medication Instructions Recorded Confirmed Last Taken Type amlodipine 10 mg tablet 10 mg PO DAILY 10/31/19 04/10/20 04/09/20 History aspirin 81 mg tablet,delayed 81 mg PO DAILY 10/31/19 04/10/20 04/09/20 History release ferric citrate 210 mg iron tablet 420 mg PO TID 10/31/19 04/10/20 04/09/20 History furosemide 20 mg tablet 60 mg PO QAM tab 10/31/19 04/10/20 04/09/20 History gabapentin 300 mg capsule 100 mg PO BID 10/31/19 04/10/20 04/09/20 History nitroglycerin 0.4 mg sublingual 0.4 mg SUBLINGUAL Q5M PRN 10/31/19 04/10/20 Unknown History tablet metoprolol tartrate 50 mg tablet 50 mg PO DAILY tab 11/09/19 04/10/20 04/09/20 History clonidine HCl 0.1 mg PO DAILY PRN 01/01/20 04/10/20 Unknown History losartan 25 mg tablet 25 mg PO DAILY #90 tab 02/01/20 04/10/20 03/01/20 Rx RenaPlex-D 1 tab PO DAILY 02/28/20 04/10/20 04/09/20 History sildenafil 50 mg PO PRN PRN 02/28/20 04/10/20 Unknown History oxycodone-acetaminophen 5 mg-325 1 tab PO Q6H PRN 7 Days #28 tab 03/20/20 04/10/20 04/09/20 Rx mg tablet prednisone 20 mg tablet 40 mg PO DAILY 30 Days #120 tab 03/28/20 04/10/20 04/09/20 Rx Allergies Allergy/AdvReac Type Severity Reaction Status Date / Time azithromycin Allergy ADR-Chest Verified 03/20/20 15:25 Pain carvedilol AdvReac ADR-Dizzine Verified 03/20/20 15:25 ss Current Medications Current Medications Generic Name Dose Route Start Last Admin Trade Name Freq PRN Reason Stop Dose Admin Metoprolol Tartrate 50 mg 04/10/20 12:30 04/10/20 12:59 Lopressor PO 50 mg DAILY JANNET Administration Ondansetron HCl 4 mg 04/10/20 11:05 04/10/20 12:59 Zofran IVP 4 mg Q6H PRN Administration NAUSEA AND VOMITING Oxycodone/Acetaminophen 1 tab 04/10/20 12:27 04/10/20 12:59 Percocet 5-325 Mg PO 1 tab Q6H PRN Administration Moderate To Severe Pain Prednisone 40 mg 04/10/20 12:30 04/10/20 12:59 Prednisone PO 40 mg DAILY JANNET Administration PFSH Acute PFSH: Medical History Atherosclerotic heart disease of [place] coronary artery without angina pectoris Benign essential hypertension Cardiomyopathy CHF NYHA class III (symptoms with mildly strenuous activities) COPD (chronic obstructive pulmonary disease) Diabetes mellitus Dyslipidemia Fistula Left Wrist Headache Hemoptysis Hemoptysis Mixed hyperlipidemia Nicotine dependence, cigarettes, uncomplicated Non-ST elevation (NSTEMI) myocardial infarction Pulmonary hypertension Right-sided chest pain Surgical History H/O elbow surgery H/O hand surgery H/O neck surgery History of back surgery History of intravascular stent placement History of thoracotomy Family History Grandmother , In her 50's Myocardial infarction Father Diabetes Mother Diabetes Social History Smoking and tobacco status: former smoker Quit status (tobacco): has quit using tobacco Year quit tobacco: 1999 - 2PPD x 20 Years Alcohol intake: current Alcohol intake frequency: holidays/special occasions only Lives independently: Yes Household members: spouse Marital status: Current occupational status: disabled History of recent travel: No Current gender identity: Male Vitals/I&O/Wt Last Vital Signs Temp 97.3 F L 04/10/20 13:30 Pulse 86 04/10/20 14:00 Resp 15 04/10/20 14:00 BP 165/119 04/10/20 14:00 Pulse Ox 93 04/10/20 14:00 Weight last 48 hrs Weight 190 lb Physical Exam Narrative: EXAM NARRATIVE: Patient is conscious alert oriented X3 BMI 27 Head and neck examination PERRLA no masses no cervical lymphadenopathy no jaundice Cardiac examination audible S1-S2 no murmurs no gallops no arrhythmias Chest is clear bilateral,abscence of Rhonchi or wheezes,no surgical emphysema Abdomen nontender except for some tenderness appreciated at the right upper quadrant and epigastric area but no positive Rodrigez sign nondistended soft no organomegaly guarding or rigidity/no signs of peritonitis Data Micro: Micro: Microbiology 04/10/20 10:03 Blood Culture - Pr eliminary Blood SPECIMEN COLLE BRYNN 04/10/20 09:56 Blood Culture - Pr eliminary Blood SPECIMEN [facility] A&P Assessment and plan (1) Abdominal pain: After thorough history physical examination and reviewing the chart and images with my personal interpretation, the incidental finding of the concern of gallbladder disease on the ultrasound should be complemented by a HIDA scan if continues to be a clinical concern, given the fact that the patient has anasarca that could be part of generalized edema that describes the wall thickness of the gallbladder, in addition to the transaminitis that being seen also with fatty liver and cholestasis. Also patient having heart failure that can cause liver congestion and gallbladder edema which is part of the generalized edema which patient experienced in addition to being fluid overloaded due to the chronic kidney disease At this point I would recommend to obtain a HIDA scan I did Talk with the patient about potential options includin2-kvafn-ndmbohld antibiotics coverage with repeated physical examination 2-follow on HIDA scan results 3-if continues to be rising in the levels of liver function tests and bilirubin MRCP would be warranted Steroid induced gastropathy could be a cause of the epigastric pain as well and patient is already on PPI We will continue to follow on the patient and coordinate care with Dr. Benton Thank you for consulting general surgery to participate taking care Mr. Dorantes Status: Acute Consult Attestations Medical Necessity Statement: Per hospitalist Time Spent in Patient Care: (>than 50% of time spent in counselling and/or direct pt care on unit). Coding Level of Care Code Acute Enlisted Aircrew/Aerial Observer/Gunner for Chg Fwd Diagnoses Abdominal pain R10.9
[2020-04-10 15:48] LABS: Hepatitis A Antibody IgM Non-Reactive (Nonreactive); Hepatitis B Core AB, Total Non-Reactive (Nonreactive); Hepatitis B Surface AB 18.2 (0-8.5); Hepatitis B Surface Antigen Non-Reactive (Nonreactive); Hepatitis C Virus Antibody Non-Reactive (Nonreactive)
[2020-04-10] MEDS: pantoprazole 40 mg SDV IVP (15:56)
[2020-04-10] MEDS: aspirin 81 mg EC Tablet PO (15:56)
[2020-04-10 16:35] LABS: Lactic Acid level (Lactate) 3.8 mmol/L (0.5-2.2)
[2020-04-10] MEDS: gabapentin 100 mg Capsule PO (17:30)
[2020-04-10] MEDS: promethazine 25 mg Tablet PO (17:30)
--- NOTE | 2020-04-10 18:52 | ECG_ITS ---
[facility] Test Date: 2020-04-10 Pat Name: Marlon Dorantes Department: Room: ICU07 Gender: Male Dean Of Boys: : 1970 Requested By: Ceci Benton Order Number: [id number] Tiffani MD: Sun Valle M.D. Measurements Intervals [place] Rate: 81 P: 49 MO: 156 QRS: 1 QRSD: 108 T: 180 QT: 437 QTc: 510 Interpretive Statements SINUS RHYTHM LEFT ATRIAL ENLARGEMENT [-0.15mV P WAVE IN V1/V2] LEFT VENTRICULAR HYPERTROPHY AND ST-T CHANGE [VOLTAGE CRITERIA PLUS ST/T ABNORMALITY] Compared to ECG 04/10/2020 14:54:32 Atrial abnormality now present Left ventricular hypertrophy now present ST (T wave) deviation now present Sinus arrhythmia no longer present First degree AV block no longer present Intraventricular conduction delay no longer present T-wave abnormality no longer present Possible ischemia no longer present Electronically Signed On 04-10-2020 20:00:00 CDT by Sun Valle M.D. [id number]
[2020-04-10] MEDS: morphine 4 mg/mL SDV 1 mL IVP ×2 (19:15→20:06)
[2020-04-10 20:05] LABS: Troponin 5 6HR 114.1 ng/L (0-15); Troponin 5 6HR Delta -11.9 ng/L (0-12)
--- NOTE | 2020-04-10 20:19 | ECG_ITS ---
[facility] Test Date: 2020-04-10 Pat Name: Marlon Dorantes Department: Room: ICU07 Gender: Male Traffic Law Attorney: : 1970 Requested By: Dawson Knowles Order Number: [id number] Reading MD: Jarrod Alvarado M.D. Measurements Intervals [place] Rate: 79 P: 42 NH: 164 QRS: 2 QRSD: 102 T: 169 QT: 451 QTc: 519 Interpretive Statements SINUS RHYTHM LEFT ATRIAL ENLARGEMENT [-0.15mV P WAVE IN V1/V2] LEFT VENTRICULAR HYPERTROPHY AND ST-T CHANGE [VOLTAGE CRITERIA PLUS ST/T ABNORMALITY] Compared to ECG 04/10/2020 18:17:36 No significant changes Electronically Signed On 04-11-2020 7:56:59 CDT by Jarrod Alvarado M.D. [id number]
[2020-04-10] MEDS: vancomycin 1,000 MG in sodium chloride 0.9% 250 ML 250 MG IV (20:38)
[2020-04-10] MEDS: amlodipine 10 mg Tablet PO (20:38)
--- NOTE | 2020-04-10 21:08 | PM.MISC ---
Miscellaneous Note Note: Abdominal pain, 06/02. Pain mostly periumbilical, RUQ. Soft stools last several days. Received extra dose morphine during HD. No chest or back pain. Awake, alert. Completed hemodialysis. Abdomen soft. Reports past episode of pancreatitis, although no calcifications noted on CT. Pending additional work up with concern for cholecystitis. Continue empiric antibiotics. Switch [place] to Dilaudid at reduced dosing given ESRD.
[2020-04-10] MEDS: piperacillin-tazobactam 3.375 GM in sodium chloride 0.9% (plus) 50 ML IV (21:39)
[2020-04-10 21:41] LABS: Lactic Acid level (Lactate) 1.8 mmol/L (0.5-2.2)
[2020-04-10 21:46] LABS: Creatine Phosphokinase 53 U/L (39-308)
[2020-04-11] VITALS (25 sets, daily range): BP systolic 140–172; BP diastolic 78–113; PULSE 54–81; RESP 7–20; TEMP 36.5; O2SAT 87–96; BMI 27.2
--- NOTE | 2020-04-11 02:40 | PC.NURSE ---
Zosyn was ordered Q12H upon admission. Pt was being dialyzed at original time of administration, so medication was held by day shift and dialysis nurses. Pt only has one IV site. Once dialysis was finished, Vancomycin was ran IVPB. Vancomycin ended and Zosyn was started 6 hours past the original administration time. Zosyn finished running at 0145, and the second dose was due to start at 0215. Pharmacy was consulted and nurse was told to non-administer 0215 dose. Pharmacists re-timed Zosyn to be given again at 0930.
[2020-04-11 04:21] LABS: Basophils % 0.1 %; Hematocrit 34.1 % (42.0-52.0); Hemoglobin 11.1 g/dL (11.7-16.6); Lymphocytes # 0.4 10^3/uL (0.8-4.8); Lymphocytes % 3.8 %; Mean Corpuscular HGB Conc 32.6 g/dL (30.0-36.0); Mean Corpuscular Hemoglobin 32.3 pg (28.0-34.0); Mean Corpuscular Volume 99.1 fL (80-94); Mean Platelet Volume 10.4 fL (7.4-10.4); Monocytes # 0.6 10^3/uL (0.2-0.9); Monocytes % 6.3 %; Neutrophils # 8.7 10^3/uL (1.8-7.7); Nucleated Red Blood Cells % 0 %; Platelet Count 112 10^3/cmm (130-400); Red Blood Count 3.44 10^6/uL (4.1-5.3); Red Cell Distribution Width 17.9 % (12.1-15.1); White Blood Count 9.8 10^3/uL (4.0-10.0)
[2020-04-11 04:26] LABS: Bacteria Urine 1+; Bilirubin Urine Neg (NEGATIVE); Blood Urine 2+ (Negative); Glucose Urine UA Trace (Normal); Ketones Urine Negative (Negative); Leukocyte Esterase Urine Negative (Negative); Nitrate Urine Negative (Negative); Protein Urine 3+ (Negative); RBC Urine 0-4 /hpf (0-2); Specific Gravity, Urine 1.015 (1.005-1.030); Squamous Epithelial Cell Urine 0-4 (0-5); Urine Appearance Clear (CLEAR); Urine Color Yellow (Yellow); Urobilinogen Urine Norm (Negative); pH Urine 6 (5-7)
[2020-04-11 04:37] LABS: INR 1.39 (0.8-1.2)
[2020-04-11 04:39] LABS: Albumin Level 3.6 g/dL (3.5-5.2); Alkaline Phosphatase 46 IU/L (40-130); Anion Gap 24.5 (5-19); Blood Urea Nitrogen 76 mg/dL (6-20); Calcium 8.8 mg/dL (8.5-10.5); Carbon Dioxide 24 mmol/L (22-29); Chloride 91 mmol/L (98-107); Globulin 2.3 g/dL (1.3-4.6); Glomerular Filtration Rate 6.7 mL/min (90-130); Glucose 107 mg/dL (65-115); Osmolality Calculated 278 mOsm/kg (285-295); Potassium 5.5 mmol/L (3.5-5.1); Sodium 134 mmol/L (136-145); Total Bilirubin 2.5 mg/dL (0.15-1.2); Total Protein 5.9 g/dL (6.6-8.7)
[2020-04-11 04:55] LABS: Alanine Aminotransferase 1033 U/L (0-41)
[2020-04-11 05:05] LABS: Aspartate Amino Transferase 701 U/L (0-40)
[2020-04-11] MEDS: FUROsemide 40 mg Tablet 60 MG PO (06:13)
--- NOTE | 2020-04-11 06:32 | P.PN_ITS ---
Subjective Subjective: Interval history: Patient undergone hemodialysis yesterday and feels better today Trending up liver function tests and trending down and leukocytosis Vitals/I&O/Wt Last Vital Signs Temp 97.3 F L 04/10/20 13:30 Pulse 54 L 04/11/20 06:00 Resp 11 L 04/11/20 06:00 BP 148/87 04/11/20 06:00 Pulse Ox 91 04/11/20 06:00 04/10/20 04/10/20 04/11/20 14:59 22:59 06:59 Intake Total 490 / 490 110 / 600 Output Total 300 / 300 Balance 490 / 490 -190 / 300 Weight last 48 hrs Weight 190 lb Weight 190 lb Physical Exam Narrative: EXAM NARRATIVE: Patient is conscious alert oriented X3 BMI 27 Head and neck examination PERRLA no masses no cervical lymphadenopathy no jaundice Abdomen much less tender nondistended soft no organomegaly guarding or rigidity/no signs of peritonitis Data : 04/11/20 03:33 04/11/20 03:33 Micro: Microbiology 04/10/20 10:03 Blood Culture - Preliminary Blood SPECIMEN COLLECTED 04/10/20 09:56 Blood Culture - Preliminary Blood SPECIMEN COLLECTED A&P Assessment and plan (1) Abdominal pain: My recommendation to keep the patient n.p.o. except for ice chips in case that hospitalist service would require to obtain more studies today in the form of HIDA scan and/or MRCP. We will defer IV fluids to hospitalist and Nephrology service. Repeated physical examination Close monitoring of LFTs Concerned that the patient may be evolving into hepatorenal syndrome yet we need to rule out potential obstructive lesion at the periampullary level to rule out any potential cause for patient's LFTs elevation yet based on the clinical evaluation most likely it is a hepatocellular in origin. As of now there is no acute surgical intervention required. We will continue coordinating with Dr. Benton Assurance and education All questions have been answered and all concerns have been addressed to patient's satisfaction. Status: Acute Attestations Medical Necessity Statement*: Per hospitalist service Time Spent in Patient Care: (>than 50% of time spent in counselling and/or direct pt care on unit) . Coding Level of Care Code Acute Medicaid Eligibility Specialist for Gabyg Fwd Diagnoses Abdominal pain R10.9
[2020-04-11] MEDS: aspirin 81 mg EC Tablet PO (08:22)
[2020-04-11] MEDS: gabapentin 100 mg Capsule PO ×2 (08:22→17:36)
[2020-04-11] MEDS: pantoprazole 40 mg SDV IVP (08:22)
[2020-04-11] MEDS: hyDRALAzine 25 mg Tablet PO ×2 (08:23→17:32)
[2020-04-11] MEDS: metoprolol tartrate 25 mg Tablet PO (08:23)
[2020-04-11] MEDS: predniSONE 20 mg Tablet 40 MG PO (08:23)
[2020-04-11] MEDS: oxyCODONE-APAP 5-325 mg Tablet 1 TAB PO ×2 (08:24→17:35)
[2020-04-11 08:50] LABS: Acetaminophen < 5.0 ug/mL (10-30); Salicylate < 0.3 mg/dL (3-10)
[2020-04-11] MEDS: piperacillin-tazobactam 2.25 GM in sodium chloride 0.9% (plus) 50 ML IV ×2 (08:55→18:55)
--- NOTE | 2020-04-11 09:24 | P.PN_ITS ---
Subjective Subjective: Interval history: Feeling better. Medications: Reviewed: Yes Vitals/I&O/Wt Last Vital Signs Temp 97.3 F L 04/10/20 13:30 Pulse 64 04/11/20 08:00 Resp 9 L 04/11/20 08:00 BP 165/100 04/11/20 08:00 Pulse Ox 91 04/11/20 08:00 04/10/20 04/11/20 04/11/20 22:59 06:59 14:59 Intake Total 490 / 490 110 / 600 Output Total 300 / 300 Balance 490 / 490 -190 / 300 Weight last 48 hrs Weight 86.183 kg Weight 86.183 kg Data : 04/11/20 03:33 04/11/20 03:33 Micro: Microbiology 04/10/20 10:03 Blood Culture - Preliminary Blood SPECIMEN COLLECTED 04/10/20 09:56 Blood Culture - Preliminary Blood SPECIMEN COLLECTED A&P Additional A&P Information 1. ESRD - for HD today after MRCP - 2K, UF 2L - dose meds for eGFR < 15 on dialysis 2. Anemia Hb stable 3. Hyperkalemia and hyperphosphatemia - for HD today 4. Hypertension - Increase Hydralazine 50mg po tid 5. Diarrhea, NPO - mgmt per primary - MRCP scheduled for today Attestations Medical Necessity Statement*: remains critically ill Time Spent in Patient Care: 16 - 35 minutes Coding Level of Care Code Acute Middle [employer] History Teacher for Ger Godfrey
--- NOTE | 2020-04-11 09:43 | P.PN_ITS ---
Subjective Subjective: Interval history: Awake in bed at time of exam earlier this morning. He reports that he continues to have abdominal pain, all located in the right upper quadrant. Reports the diarrhea has subsided. Reports that nausea has improved. Discussed with patient plan for further imaging studies today due to concern for increase in liver function testing. Patient verbalizes understanding Medications: Reviewed: Yes Vitals/I&O/Wt Last Vital Signs Temp 97.3 F L 04/10/20 13:30 Pulse 64 04/11/20 08:00 Resp 9 L 04/11/20 08:00 BP 165/100 04/11/20 08:00 Pulse Ox 91 04/11/20 08:00 04/10/20 04/11/20 04/11/20 22:59 06:59 14:59 Intake Total 490 / 490 110 / 600 Output Total 300 / 300 Balance 490 / 490 -190 / 300 Weight last 48 hrs Weight 86.183 kg Weight 86.183 kg Physical Exam Const: COMMON NORMALS: patient oriented x3 and alert GENERAL APPEARANCE: cooperative ORIENTATION/CONSCIOUSNESS: Yes awake, Yes oriented to person, Yes oriented to place and Yes oriented to time HENMT: COMMON NORMALS: normocephalic and atraumatic HEAD & SCALP: normocephalic and atraumatic Eye: COMMON NORMALS: Equal, round and reactive pupils present PUPIL: Yes Equal, round and reactive pupils present OTHER: Scleral icterus Neck/C-Spine: COMMON NORMALS: supple GENERAL: Yes normal visual inspection Resp: COMMON NORMALS: normal respiratory effort and clear to auscultation bilaterally EFFORT & INSPECTION: Yes able to speak in complete sentences AUSCULTATION: clear to auscultation bilaterally, no rhonchi and no wheezes OTHER: Diminished breath sounds in the bases bilaterally Cardio: COMMON NORMALS: regular rate, regular rhythm and No murmurs present (Cardio) RATE: regular rate RHYTHM: regular rhythm OTHER: faint systolic murmur GI: COMMON NORMALS: Soft to palpation and non-tender INSPECTION: No abdominal distension AUSCULTATION: Yes normoactive bowel sounds PALPATION: Yes Soft to palpation OTHER: Tenderness to palpation in the right upper quadrant, hypoactive bowel sounds Extremity: COMMON NORMALS: no calf tenderness OTHER: 3+ pitting edema in the LE bilaterally, slightly improved from admission Neuro: COMMON NORMALS: patient oriented x3, CN's II-XII intact bilaterally, moves all extremities and no focal motor deficits SENSORIUM/ORIENTATION: Yes alert, Yes oriented to person, Yes oriented to place and Yes oriented to time SPEECH: speech normal Psych: COMMON NORMALS: mental status grossly normal and cooperative Skin: COMMON NORMALS: no rashes or lesions noted GENERAL SKIN EXAM: no rashes or lesions noted Data : 04/11/20 03:33 04/11/20 03:33 Micro: Microbiology 04/10/20 10:03 Blood Culture - Preliminary Blood SPECIMEN COLLECTED 04/10/20 09:56 Blood Culture - Preliminary Blood SPECIMEN COLLECTED A&P Assessment and plan (1) Abdominal pain: Pain more isolated to the right upper quadrant today We will further evaluate with MRCP due to worsening transaminitis Stools cultures ordered and pending, C. difficile toxin ordered and pending, patient has not had any diarrhea stools since admission Continue PPI General surgeon, Dr. Palafox consulted. Appreciate recommendations and assistance in patient's care. Hepatitis panel negative Acetaminophen and salicylate levels negative Status: Acute (2) ESRD (end stage renal disease): End-stage renal disease on home dialysis Tuesday, Tuesday, Tuesday, Tuesday. Patient reports that his last session of dialysis was on Tuesday. With diffuse anasarca Nephrology consulted, appreciate recommendations and assistance in patient's care. 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 Recently had bronchoscopy and biopsies and thoracotomy performed and pathology report sent to [facility], concern for idiopathic pulmonary hemosiderosis. Discussed with Dr. Macias and will continue on patient's prednisone home dose at this time. Blood pressure and heart rate remained stable therefore will hold off on stress dosing at this time. Status: Acute (4) Pulmonary hypertension: Status: Acute (5) CHF NYHA class III (symptoms with mildly strenuous activities): With acute exacerbation and anasarca Dialysis as noted above LVEF of 25 to 30% based on last imaging Status: Acute Qualifiers: Congestive heart failure type: systolic Congestive heart failure chr onicity: chronic Qualified Code(s): I50.22 - Chronic systolic (congestive) heart failure (6) Dyslipidemia: Status: Acute (7) Benign essential hypertension: Elevated blood pressure in the emergency department, continue amlodipine 10 mg daily, patient is on Lasix 60 mg daily, remains on losartan 25 mg daily will hold at this time due to worsening renal function, metoprolol 50 mg daily patient is also on clonidine 0.1 mg daily as needed Plan for dialysis for fluid removal today Status: Acute (8) Atherosclerotic heart disease of [place] coronary artery without angina pectoris: Coronary artery disease history of PCI Followed by Dr. Landis Continued on Lasix and metoprolol, losartan on hold due to worsening renal function. Status: Acute Qualifiers: Habematolel vs. transplanted heart: [place] heart Qualified Code(s): I25.10 - Atherosclerotic heart disease of [place] coronary artery without angina pectoris (9) Metabolic acidosis: Status: Acute Additional A&P Information Concern for acute liver failure with hyperbilirubinemia, new transaminitis, thrombocytopenia and coagulopathy: MRCP ordered to further evaluate right upper quadrant. Consideration of hepatorenal syndrome, tickborne illness started empirically on doxycycline with tick panel ordered and pending. No prior history of cirrhosis, however does have fatty liver changes. No evidence of any portal vein thrombosis. We will continue with further work-up. Acute hepatitis panel ordered without any evidence of acute infection. Acetaminophen and salicylate level negative. Intractable nausea, vomiting, diarrhea: Further imaging studies ordered and pending as noted above, continue with IV antiemetics. Diarrhea has now resolved, however stool studies remain ordered and pending Bilateral pleural effusions: Secondary to noncompliance with dialysis due to not feeling well, repeat chest x-ray today Leukocytosis: Concerned with acute infectious process as noted above, continuing on broad-spectrum empiric antibiotics with vancomycin and Zosyn, empiric doxycycline added today. This has improved with antibiotic therapy. Patient is also on chronic steroids which could be contributing. 2.8 cm density in the mid lobe of the right lung: Recommend further monitoring and follow-up, will hold off on further imaging at this time. Severe diverticulosis without evidence of diverticulitis Hyperkalemia in the setting of end-stage renal disease on dialysis: Follow-up with nephrology recommendations, plan for dialysis again today Chronic immunosuppression with steroid use: Recently started on steroids due to concern for idiopathic pulmonary hemosiderosis Pending further testing patient may require transfer for higher level of care and gastroenterology consultation. This is not available at our facility at this time. Will follow up with further testing and imaging studies and discuss further with patient and family today. Transfer to a higher level of care if deemed necessary. DVT prophylaxis: SCDs, no pharmacologic prophylaxis due to concern for continued hemoptysis and thrombocytopenia Diet: Liquid diet after right upper quadrant ultrasound. If unable to tolerate will keep n.p.o. with bowel rest. CODE STATUS: Full code Attestations Medical Necessity Statement*: Patient requires further hospitalization and ICU care due to concern for right upper quadrant abdominal pain, transaminitis and concern for developing acute liver failure. Coding Level of Care Code Acute Field Research Assistant for Chg Fwd Diagnoses Abdominal pain R10.9 ESRD (end stage renal disease) N18.6 Idiopathic pulmonary hemosiderosis J84.03 Pulmonary hypertension I27.20 CHF NYHA class III (symptoms with mildly strenuous activities) I50.22 Congestive heart failure type: systolic Congestive heart failure chronicity: chronic Dyslipidemia E78.5 Benign essential hypertension I10 Atherosclerotic heart disease of [place] coronary artery without angina pectoris I25.10 Habematolel vs. transplanted heart: [place] heart Metabolic acidosis E87.2
--- NOTE | 2020-04-11 09:45 | MR_ITS ---
WS: [id number] MRI/MRCP OF THE ABDOMEN WITHOUT GADOLINIUM ENHANCEMENT TECHNIQUE: Thin and thick slab MRCP, Axial T2, Coronal MRCP, Axial Dual Echo, and Axial 2-D Fiesta imaging was obtained. Coronal 2-D Fiesta imaging. CLINICAL INFORMATION: Transaminitis, RUQ pain, Hyperbilirubinemia, COMPARISON: CT and ultrasound April 10, 2020 FINDINGS: Images moderately degraded by patient motion. Diffuse heterogeneous liver parenchyma. Markedly decreased T2 signal involving the liver and spleen. Liver parenchyma signal increases on the out of Phase imaging which can be seen with hemachromatosis . No intrahepatic biliary ductal dilatation. Portal vein and splenic vein are patent. Fluid distended g allbladder. Common bile duct appears patent. Normal tapering of the common bile duct distally at the pancreatic head. No evidence of choledocholithiasis. Gallbladder wall thickening with pericholecystic fluid suspicious for acalculous cholecystitis. This also could be related to liver disease. Gallblad danielle function can be further evaluated with HIDA scan. Small left greater than right pleural effusions. Normal right adrenal gland. Mild thickening left adr enal gland likely due to hyperplasia. No focal adrenal mass. Normal spleen. Normal caliber abdominal aorta. Mesenteric edema with mild ascites. Diffuse body wall anasarca. Bilateral renal cortical atrop hy. Normal pancreas. Pancreatic calcifications. MR/MR MRCP [id number] Impression: 1. No cholelithiasis. Mild diffuse gallbladder wall thickening with pericholec ystic edema can be seen with liver disease versus acalculous cholecystitis. Gal lbladder can be further evaluated with HIDA scan to assess function. 2. No evidence of choledocholithiasis. Normal tapering common bile duct. 3. No evidence of pancreatic head mass or lesion. 4. Diffuse heterogeneous liver parenchyma with markedly decreased T2 signal an d increased signal on the out of phase imaging. In addition, Decreased T2 signa l involving the spleen. Findings can be seen with secondary hemachromatosis. Re commend correlation with liver function tests. 5. Small left greater than right pleural effusions. 6. Bilateral renal cortical atrophy. 7. Thickening of the left adrenal gland likely due to adrenal hyperplasia. No focal mass.
--- NOTE | 2020-04-11 10:02 | XR_ITS ---
WS: [id number] XR chest 1V portable [id number] REASON FOR EXAM: hypoxia FINDINGS: Cardiomegaly is noted. Previous exam of March 20, 2020 there was infiltrates and effusion pre sent. The effusion on the left is markedly improved with only residue noted. The infiltrates appear to be improved in the right lung base also. The hilum and apices are normal. XR/XR chest 1V portable [id number] IMPRESSION: Resolving infiltrates in the right lung base. Resolving left pleural effusion Cardiomegaly.
--- NOTE | 2020-04-11 10:06 | PC.NURSE ---
to mri with nursing staff this am.. Dr and pharmacy called changed zosyn infusion to over 30 min dosage with conflict dialysis and other antibiotics
[2020-04-11] MEDS: doxycycline 100 MG in sodium chloride 0.9% (plus) 100 ML IV (10:48)
--- NOTE | 2020-04-11 12:11 | P.TS_ITS ---
Transfer Summary Providers Date of Admission: 04/10/20 11:09 Date of Discharge: 04/11/20 Attending Provider at Admission: Ceci Benton DO Attending Provider at Transfer: Ceci Benton DO Primary Care Provider: Michael Eubanks DO Anticipated Date of Transfer: Anticipated date of transfer: 04/11/20 Receiving Facility & Provider: Receiving Provider: Dr. Larsen Receiving facility: [facility] Diagnoses at Discharge Discharge Diagnosis (1) Abdominal pain: Status: Acute (2) ESRD (end stage renal disease): Status: Acute (3) Idiopathic pulmonary hemosiderosis: Status: Acute (4) Pulmonary hypertension: Status: Acute (5) CHF NYHA class III (symptoms with mildly strenuous activities): Status: Acute Qualifiers: Congestive heart failure chronicity: chronic Congestive heart failure type: systolic Qualified Code(s): I50.22 - Chronic systolic (congestive) heart failure (6) Dyslipidemia: Status: Acute (7) Benign essential hypertension: Status: Acute (8) Atherosclerotic heart disease of [place] coronary artery without angina pectoris: Status: Acute Qualifiers: [place] vs. transplanted heart: [place] heart Qualified Code(s): I25.10 - Atherosclerotic heart disease of [place] coronary artery without angina pectoris (9) Metabolic acidosis: Status: Acute Reason for Visit Reason for Visit: DIARRHEA X 3 DAYS Hospital Course Hospital Course: Marlon Dorantes is a 49 year old male with a past medical history of hypertension, end-stage renal disease on hemodialysis, coronary artery disease, systolic congestive heart failure and recent diagnosis of idiopathic pulmonary hemosiderosis. 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 He reported that he has been feeling poorly over the past 3 to 4 days. Reports increased nausea vomiting and extreme diarrhea. He stated that no one at home is been sick, he is on city water. Reports that he had no ingestion of any uncooked or poorly prepared foods that he is aware of. He states that he has been on steroids recently due to recent diagnosis of idiopathic pulmonary hemosiderosis. Patient reports that he has had some occasional bright red blood per rectum, no melanotic stools, no coffee-ground emesis. He states that his diarrhea began getting worse on Tuesday and is been worse for the past 3 days. He states that he is felt generally bloated across his abdomen with generalized aching discomfort. No sharp or stabbing pain, no localized pain. Stated that he has had significant increase in swelling in the lower extremities and throughout his body. He reports that his last session of dialysis was on Tuesday, he had not been feeling well so therefore did not continue with any sessions throughout this week. Patient denies any exposure to [place] VID-19, reported that he was tested by his primary care provider approximately 1 to 2 months ago and was negative at that time. He states that he has chronic hemoptysis, with recent addition of steroids he reports that he seems to have more bright red blood, no increase in sputum or blood production. Patient was seen and evaluated in the emergency department noted to have fluid overload with worsening renal failure and hyperkalemia. Noted to have transaminitis with hyperbilirubinemia and abdominal pain with diffuse anasarca. Called for admission, requested nephrology consultation. Patient was dialyzed and had improvement in diffuse anasarca but continued to have hyperkalemia and required second dialysis session on hospital day #2. Surgery consult was obtained due to transaminitis with hyperbilirubinemia and right upper quadrant ultrasound showing question of cholecystitis. No evidence of any cholelithiasis. Patient was continued on broad-spectrum antibiotics with vancomycin and Zosyn, ultimately and started on empiric doxycycline until further tick panel returns. Patient was also placed on broad-spectrum antibiotics due to immunocompromise state due to being on steroids for idiopa thic pulmonary hemosiderosis. On hospital day #2 patient had worsening LFTs with onset of thrombocytopenia and increasing PT/INR. Patient had increase in total bilirubin and ALT doubled to 1033, AST increased to 701. Patient had normal alk phos. Further studies were ordered including MRCP. MRCP showed no cholelithiasis, no evidence of choledocholithiasis, no evidence of pancreatic head mass or lesion, diffuse heterogenous liver parenchyma with markedly decreased T2 signal and increased signal on the out of phase imaging, decreased T2 signal involving the spleen, question of secondary hemochromatosis. Did show mild diffuse gallbladder wall thickening with love-cholecystic edema concerning for liver disease versus acalculus cholecystitis. Discussed findings with general surgeon and he does not believe that acute liver changes are related to gallbladder pathology. Patient was noted to be slightly bradycardic therefore her metoprolol dosing was decreased. He was noted to have peripheral edema, due to possibility of amlodipine contributing to this amlodipine was discontinued and patient was started on hydralazine. Vital signs otherwise remained stable. Repeat chest x-ray was performed which showed improved bilateral pleural effusions following dialysis. Recommendation at this time is for further evaluation and transfer to a higher level of care for gastroenterology and he patology specialist. Discussed this with patient and his they verbalized understanding and agreed with plan. Discussed with physician, Dr. Larsen, at [facility] in [facility] and patient was accepted in transfer to stepdown unit. Physical Exam Const: COMMON NORMALS: patient oriented x3 and alert GENERAL APPEARANCE: cooperative and ill appearing ORIENTATION/CONSCIOUSNESS: Yes awake, Yes oriented to person, Yes oriented to place and Yes oriented to time HENMT: COMMON NORMALS: normocephalic and atraumatic HEAD & SCALP: normocephalic and atraumatic Eye: COMMON NORMALS: Equal, round and reactive pupils present PUPIL: Yes Equal, round and reactive pupils present OTHER: Scleral icterus Neck/C-Spine: COMMON NORMALS: supple GENERAL: Yes normal visual inspection Resp: COMMON NORMALS: normal respiratory effort and clear to auscultation bilaterally EFFORT & INSPECTION: Yes able to speak in complete sentences AUSCULTATION: clear to auscultation bilaterally, no rhonchi and no wheezes OTHER: Diminished breath sounds in the bases bilaterally Cardio: COMMON NORMALS: regular rate, regular rhythm and No murmurs present (Cardio) RATE: regular rate RHYTHM: regular rhythm OTHER: faint systolic murmur GI: COMMON NORMALS: Soft to palpation and non-tender INSPECTION: No abdominal distension AUSCULTATION: Yes normoactive bowel sounds PALPATION: Yes Soft to palpation OTHER: Tenderness to palpation in the right upper quadrant, hypoactive bowel sounds : COMMON NORMALS: Yes no CVA tenderness BLADDER/KIDNEY EXAM: Yes no CVA tenderness Back/Pelvis: COMMON NORMALS: no CVA tenderness Extremity: COMMON NORMALS: no calf tenderness OTHER: 3+ pitting edema in the LE bilaterally, slightly improved from admission Neuro: COMMON NORMALS: patient oriented x3, CN's II-XII intact bilaterally, moves all extremities and no focal motor deficits SENSORIUM/ORIENTATION: Yes alert, Yes oriented to person, Yes oriented to place and Yes oriented to time SPEECH: speech normal Psych: COMMON NORMALS: mental status grossly normal and cooperative Skin: COMMON NORMALS: no rashes or lesions noted GENERAL SKIN EXAM: no rashes or lesions noted TS Data Data Completed and Pending: Completed Studies During Hospitalization Category Date Time Status CT abdomen pelvis w con* [id number] Urge nt Cat Scan 04/10/20 09:34 Completed XR chest 1V melva ble [id number] Routine Exams 04/11/20 10:02 Ordered MR MRCP [id number] Urg ent MRI 04/11/20 09:45 Ordered US gall bladder 7 [id number] Urgent Ultrasound 04/10/20 11:53 Completed Pending at discharge Category Date Time Status Blood Culture Sta t Lab 04/10/20 10:03 Results Clostridioides Di fficile PCR Routin e Lab 04/10/20 11:09 Uncollected Clostridioides Di fficile PCR Routin e Lab 04/10/20 11:51 Ordered Comprehensive Met abolic Panel Timed Lab 04/11/20 13:00 Ordered Enteric Bacterial Panel by PCR Rout ine Lab 04/10/20 11:51 Ordered Enteric Parasite Panel by PCR Routi ne Lab 04/10/20 11:51 Ordered Gamma Glutamyl Tr anspeptidase Routi ne Lab 04/11/20 03:33 Received Immunochemical Fe vicente OCB Routine Lab 04/10/20 11:51 Ordered Lactoferrin Routi ne Lab 04/10/20 11:51 Ordered Sputum Culture an d Gram Stain Stat Lab 04/10/20 12:25 Uncollected Tick Panel Urgent Lab 04/11/20 03:33 Received Total Iron Bindin g Capacity Routine Lab 04/11/20 11:49 Ordered Urine Culture Sta t Lab 04/10/20 12:25 Received Labs from last 24 hours 04/11/20 04/11/20 04/11/20 03:55 03:33 03:33 WBC RBC Hgb Hct MCV MCH MCHC RDW Plt Count MPV Neut % (Auto) Lymph % (Auto) [place] % (Auto) Eos % (Auto) Baso % (Auto) Neut # (Auto) Lymph # (Auto) [place] # (Auto) Eos # (Auto) Baso # (Auto) Nucleated RBC % (a uto) Nucleated RBCs # PT INR Sodium 134 L Potassium 5.5 H Chloride 91 L Carbon Dioxide 24 Anion Gap 24.5 H BUN 76 H Creatinine 8.5 H* GFR Calculation 6.7 L Glucose 107 Calculated Osmolal ity 278 L Lactic Acid (Sepsi s) Calcium 8.8 Total Bilirubin 2.5 H AST 701 H ALT 1033 H Alkaline Phosphata se 46 Creatine Kinase Troponin I 6 Hour Troponin I Hi Sens Del Troponin T Baselin e Troponin T 120 Min [place] Troponin T NT-Pro-B Natriuret Pep Total Protein 5.9 L Albumin 3.6 Globulin 2.3 Procalcitonin Urine Color Yellow Urine Appearance Clear Urine pH 6 Ur Specific Gravit y 1.015 Urine Protein 3+ H Urine Glucose (UA) Trace H Urine Ketones Negative Urine Blood 2+ H Urine Nitrate Negative Urine Bilirubin Neg Urine Urobilinogen Norm Ur Leukocyte [place] ase Negative Urine RBC 0-4 H Urine WBC 5-10 H Ur Squamous Epith Cells 0-4 H Urine Bacteria 1+ H Salicylates < 0.3 L Acetaminophen < 5.0 L Hepatitis A IgM Ab Hep Bs Antigen Hep Bs Antibody Hep B Core Total A b Hepatitis C Antibo dy 04/11/20 04/11/20 04/10/20 03:33 03:33 21:12 WBC 9.8 RBC 3.44 L Hgb 11.1 L Hct 34.1 L MCV 99.1 H MCH 32.3 MCHC 32.6 RDW 17.9 H Plt Count 112 L MPV 10.4 Neut % (Auto) 89.0 Lymph % (Auto) 3.8 [place] % (Auto) 6.3 Eos % (Auto) 0.0 Baso % (Auto) 0.1 Neut # (Auto) 8.7 H Lymph # (Auto) 0.4 L [place] # (Auto) 0.6 Eos # (Auto) 0.0 Baso # (Auto) 0.0 Nucleated RBC % (a uto) 0 Nucleated RBCs # 0.0 PT 17.60 H INR 1.39 H Sodium Potassium Chloride Carbon Dioxide Anion Gap BUN Creatinine GFR Calculation Glucose Calculated Osmolal ity Lactic Acid (Sepsi s) Calcium Total Bilirubin AST ALT Alkaline Phosphata se Creatine Kinase 53 Troponin I 6 Hour Troponin I Hi Sens Del Troponin T Baselin e Troponin T 120 Min [place] Troponin T NT-Pro-B Natriuret Pep Total Protein Albumin Globulin Procalcitonin Urine Color Urine Appearance Urine pH Ur Specific Gravit y Urine Protein Urine Glucose (UA) Urine Ketones Urine Blood Urine Nitrate Urine Bilirubin Urine Urobilinogen Ur Leukocyte Barbara ase Urine RBC Urine WBC Ur Squamous Epith Cells Urine Bacteria Salicylates Acetaminophen Hepatitis A IgM Ab Hep Bs Antigen Hep Bs Antibody Hep B Core Total A b Hepatitis C Antibo dy 04/10/20 04/10/20 04/10/20 21:12 19:25 15:49 WBC RBC Hgb Hct MCV MCH MCHC RDW Plt Count MPV Neut % (Auto) Lymph % (Auto) [place] % (Auto) Eos % (Auto) Baso % (Auto) Neut # (Auto) Lymph # (Auto) [place] # (Auto) Eos # (Auto) Baso # (Auto) Nucleated RBC % (a uto) Nucleated RBCs # PT INR Sodium Potassium Chloride Carbon Dioxide Anion Gap BUN Creatinine GFR Calculation Glucose Calculated Osmolal ity Lactic Acid (Sepsi s) 1.8 3.8 H Calcium Total Bilirubin AST ALT Alkaline Phosphata se Creatine Kinase Troponin I 6 Hour 114.1 H Troponin I Hi Sens Del -11.9 L Troponin T Baselin e Troponin T 120 Min [place] Troponin T NT-Pro-B Natriuret Pep Total Protein Albumin Globulin Procalcitonin Urine Color Urine Appearance Urine pH Ur Specific Gravit y Urine Protein Urine Glucose (UA) Urine Ketones Urine Blood Urine Nitrate Urine Bilirubin Urine Urobilinogen Ur Leukocyte [place] ase Urine RBC Urine WBC Ur Squamous Epith Cells Urine Bacteria Salicylates Acetaminophen Hepatitis A IgM Ab Hep Bs Antigen Hep Bs Antibody Hep B Core Total A b Hepatitis C Antibo dy 04/10/20 04/10/20 04/10/20 15:49 13:56 10:03 WBC RBC Hgb Hct MCV MCH MCHC RDW Plt Count MPV Neut % (Auto) Lymph % (Auto) [place] % (Auto) Eos % (Auto) Baso % (Auto) Neut # (Auto) Lymph # (Auto) [place] # (Auto) Eos # (Auto) Baso # (Auto) Nucleated RBC % (a uto) Nucleated RBCs # PT INR Sodium Potassium Chloride Carbon Dioxide Anion Gap BUN Creatinine GFR Calculation Glucose Calculated Osmolal ity Lactic Acid (Sepsi s) Calcium Total Bilirubin AST ALT Alkaline Phosphata se Creatine Kinase Troponin I 6 Hour Troponin I Hi Sens Del Troponin T Baselin e 126 H* Troponin T 120 Min [place] 124.0 H Delta Troponin T -2.0 L NT-Pro-B Natriuret Pep Total Protein Albumin Globulin Procalcitonin 0.80 H Urine Color Urine Appearance Urine pH Ur Specific Gravit y Urine Protein Urine Glucose (UA) Urine Ketones Urine Blood Urine Nitrate Urine Bilirubin Urine Urobilinogen Ur Leukocyte [place] ase Urine RBC Urine WBC Ur Squamous Epith Cells Urine Bacteria Salicylates Acetaminophen Hepatitis A IgM Ab Hep Bs Antigen Hep Bs Antibody Hep B Core Total A b Hepatitis C Antibo dy 04/10/20 04/10/20 10:03 10:03 WBC RBC Hgb Hct MCV MCH MCHC RDW Plt Count MPV Neut % (Auto) Lymph % (Auto) [place] % (Auto) Eos % (Auto) Baso % (Auto) Neut # (Auto) Lymph # (Auto) [place] # (Auto) Eos # (Auto) Baso # (Auto) Nucleated RBC % (a uto) Nucleated RBCs # PT INR Sodium Potassium Chloride Carbon Dioxide Anion Gap BUN Creatinine GFR Calculation Glucose Calculated Osmolal ity Lactic Acid (Sepsi s) Calcium Total Bilirubin AST ALT Alkaline Phosphata se Creatine Kinase Troponin I 6 Hour Troponin I Hi Sens Del Troponin T Baselin e Troponin T 120 Min [place] Troponin T NT-Pro-B Natriuret Pep [id number] H Total Protein Albumin Globulin Procalcitonin Urine Color Urine Appearance Urine pH Ur Specific Gravit y Urine Protein Urine Glucose (UA) Urine Ketones Urine Blood Urine Nitrate Urine Bilirubin Urine Urobilinogen Ur Leukocyte [place] ase Urine RBC Urine WBC Ur Squamous Epith Cells Urine Bacteria Salicylates Acetaminophen Hepatitis A IgM Ab Non-reactive Hep Bs Antigen Non-reactive Hep Bs Antibody 18.2 H Hep B Core Total A b Non-reactive Hepatitis C Antibo dy Non-reactive Vitals: Last Vital Signs Temp 97.3 F L 04/10/20 13:30 Pulse 58 L 04/11/20 10:50 Resp 19 H 04/11/20 10:50 BP 157/91 04/11/20 10:50 Pulse Ox 90 04/11/20 10:50 TS Medications Medications Home Medications amlodipine 10 mg tablet 10 mg PO DAILY 10/31/19 [History Confirmed 04/10/20] aspirin 81 mg tablet,delayed release 81 mg PO DAILY 10/31/19 [History Confirmed 04/10/20] ferric citrate 210 mg iron tablet 420 mg PO TID 10/31/19 [History Confirmed 04/10/20] furosemide 20 mg tablet 60 mg PO QAM tab 10/31/19 [History Confirmed 04/10/20] gabapentin 300 mg capsule 100 mg PO BID 10/31/19 [History Confirmed 04/10/20] nitroglycerin 0.4 mg sublingual tablet 0.4 mg SUBLINGUAL Q5M PRN 10/31/19 [History Confirmed 04/10/20] metoprolol tartrate 50 mg tablet 50 mg PO DAILY tab 11/09/19 [History Confirmed 04/10/20] clonidine HCl 0.1 mg PO DAILY PRN 01/01/20 [History Confirmed 04/10/20] losartan 25 mg tablet 25 mg PO DAILY #90 tab 02/01/20 [Rx Confirmed 04/10/20] RenaPlex-D 1 tab PO DAILY 02/28/20 [History Confirmed 04/10/20] sildenafil 50 mg PO PRN PRN 02/28/20 [History Confirmed 04/10/20] oxycodone-acetaminophen 5 mg-325 mg tablet 1 tab PO Q6H PRN 7 Days #28 tab 03/20/20 [Rx Confirmed 04/10/20] prednisone 20 mg tablet 40 mg PO DAILY 30 Days #120 tab 03/28/20 [Rx Confirmed 04/10/20] Active Medications Aspirin (Aspirin Ec) 81 mg PO DAILY [facility] Last Admin: 04/11/20 08:22 Dose: 81 mg Documented by: Furosemide (Lasix) 60 mg PO QAM [facility] Last Admin: 04/11/20 06:13 Dose: 60 mg Documented by: Gabapentin (Neurontin) 100 mg PO BID [facility] Last Admin: 04/11/20 08:22 Dose: 100 mg Documented by: Hydralazine HCl (Apresoline) 25 mg PO TID [facility] Last Admin: 04/11/20 08:23 Dose: 25 mg Documented by: Hydromorphone HCl (Dilaudid Tab) 2 mg PO Q4H PRN PRN Reason: Pain Last Admin: 04/11/20 03:50 Dose: 2 mg Documented by: Vancomycin HCl 1,000 mg/ (Sodium Chloride) 250 mls @ 250 mls/hr IV MoWeFr [facility]; Protocol Last Infusion: 04/10/20 21:48 Dose: Infused Documented by: Piperacillin Sod/Tazobactam (Sod 2.25 gm/ Sodium Chloride) 50 mls @ 100 mls/hr IV Q8H [facility] Last Admin: 04/11/20 08:55 Dose: 100 mls/hr Documented by: Doxycycline Hyclate 100 mg/ (Sodium Chloride) 100 mls @ 100 mls/hr IV Q12H [facility]; Protocol Last Admin: 04/11/20 10:48 Dose: 100 mls/hr Documented by: Metoprolol Tartrate (Lopressor) 25 mg PO DAILY [facility] Last Admin: 04/11/20 08:23 Dose: 25 mg Documented by: Morphine Sulfate (Morphine) 4 mg IVP Q4H PRN PRN Reason: SEVERE PAIN Last Admin: 04/10/20 19:15 Dose: 4 mg Documented by: Naloxone HCl (Narcan) 0.1 mg IVP Q2M PRN PRN Reason: RESPIRATORY RATE < 8/MIN Nitroglycerin (Nitrostat) 0.4 mg SUBLINGUAL Q5M PRN PRN Reason: Pain Non-Formulary Medication (Vit B,[id number]-[id number]-Selen-Vit D3-E [Renaplex-D]) 1 tab PO DAILY [facility] Non-Formulary Medication (Ferric Citrate [Auryxia]) 420 mg PO TID [facility] Ondansetron HCl (Zofran) 4 mg IVP Q6H PRN PRN Reason: NAUSEA AND VOMITING Last Admin: 04/10/20 19:15 Dose: 4 mg Documented by: Oxycodone/Acetaminophen (Percocet 5-325 Mg) 1 tab PO Q6H PRN PRN Reason: Moderate To Severe Pain Last Admin: 04/11/20 08:24 Dose: 1 tab Documented by: Pantoprazole Sodium (Protonix) 40 mg IVP DAILY [facility] Last Admin: 04/11/20 08:22 Dose: 40 mg Documented by: Prednisone (Prednisone) 40 mg PO DAILY [facility] Last Admin: 04/11/20 08:23 Dose: 40 mg Documented by: Promethazine HCl (Phenergan) 25 mg PO Q6H PRN PRN Reason: NAUSEA Last Admin: 04/10/20 17:30 Dose: 25 mg Documented by: Discharge Plan Discharge Patient Disposition: Xfer Short-Term Hosp Condition: Fair Prescriptions: No Action aspirin 81 mg tablet,delayed release (DR/EC) 81 mg PO DAILY RF: 0 nitroglycerin [Nitrostat] 0.4 mg tablet, sublingual 0.4 mg SUBLINGUAL Q5M PRN (Reason: Pain) RF: 0 furosemide [Lasix] 20 mg tablet 60 mg PO QAM RF: 0 gabapentin 300 mg capsule 100 mg PO BID RF: 0 Auryxia 210 mg iron tablet 420 mg PO TID RF: 0 amlodipine 10 mg tablet 10 mg PO DAILY RF: 0 metoprolol tartrate 50 mg tablet 50 mg PO DAILY RF: 0 oxycodone-acetaminophen 5-325 mg tablet 1 tab PO Q6H PRN (Reason: Moderate To Severe Pain) 7 Days Qty: 28 RF: 0 losartan 25 mg tablet 25 mg PO DAILY Qty: 90 RF: 3 prednisone 20 mg tablet 40 mg PO DAILY 30 Days Qty: 120 RF: 2 clonidine HCl 0.1 mg Tablet 0.1 mg PO DAILY PRN (Reason: Hypertension) RF: 0 sildenafil 50 mg tablet 50 mg PO PRN PRN (Reason: Erectile Dysfunction) RF: 0 RenaPlex-D 800 mcg-12.5 mg -2,000 unit tablet 1 tab PO DAILY RF: 0 Discharge Orders: Transfer Out of Facility (Order); Ordered 04/11/20 Ordered By: Ceci Benton Referrals: Michael Eubanks, [Primary Care Provider] - Transfer Attestations Time Spent in Transfer Care*: greater than 30 min Specific Discharge Activities: Specific discharge activities: educating patient, educating and/or supporting family/caregiver and documenting/other paperwork Status at Transfer: Cognitive status at transfer: cognitively intact , Behavioral status at transfer: cooperative and independent in ADL's , Quality Metrics Clinical Quality Measures: During this hospital stay, did patient experience: None Coding Level of Care Code 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 transplanted heart: [place] heart Metabolic acidosis E87.2
--- NOTE | 2020-04-11 13:52 | PC.NURSE ---
for transfer to [facility] for specialty care
[2020-04-11 14:02] LABS: Albumin Level 3.7 g/dL (3.5-5.2); Alkaline Phosphatase 47 IU/L (40-130); Anion Gap 27.2 (5-19); Aspartate Amino Transferase 443 U/L (0-40); Blood Urea Nitrogen 74 mg/dL (6-20); Calcium 8.8 mg/dL (8.5-10.5); Carbon Dioxide 21 mmol/L (22-29); Chloride 92 mmol/L (98-107); Globulin 2.5 g/dL (1.3-4.6); Glomerular Filtration Rate 7.2 mL/min (90-130); Glucose 119 mg/dL (65-115); Osmolality Calculated 281 mOsm/kg (285-295); Potassium 5.2 mmol/L (3.5-5.1); Sodium 135 mmol/L (136-145); Total Bilirubin 2.1 mg/dL (0.15-1.2); Total Protein 6.2 g/dL (6.6-8.7)
[2020-04-11 14:03] LABS: Gamma Glutamyl Transferase 82 U/L (8-61)
[2020-04-11 14:04] LABS: Iron 141 ug/dL (59-158); Percent Saturation 64.9 % (20-50); Total Iron Binding Capacity 217 mcg/dl; Unsaturated Iron Binding 76 ug/dL (112-347)
[2020-04-11 14:35] LABS: Alanine Aminotransferase 936 U/L (0-41)
--- NOTE | 2020-04-11 16:22 | PC.NURSE ---
continues to recieve dialysis so at this time vancomycing delayed will retime when done
[2020-04-11] MEDS: vancomycin 1,000 MG in sodium chloride 0.9% 250 ML 250 MG IV (17:28)
[2020-04-11] MEDS: morphine 4 mg/mL SDV 1 mL IVP (19:19)
--- NOTE | 2020-04-11 19:41 | PC.NURSE ---
Transfer paperwork filled out and report called to Katie Soto RN at [facility] in [place], [place]. supervisor roving department notified to come sign transfer paperwork to be faxed to [facility]. Pt given update on timeline for transfer.
--- NOTE | 2020-04-14 12:10 | PC.RESP ---
Pulmonary Rehab information sent to patient.
[2020-04-15 06:53] LABS: Lyme AB Screen <0.90 index
[2020-04-15 17:05] LABS: E. Chaffeensis AB IGG <1:64; E. Chaffeensis AB IGM <1:20
[2020-04-16 12:57] LABS: RMSF IGG NOT DETECTED; RMSF IGM NOT DETECTED
== END 2020-04-11 21:25 | disposition short-term general hospital (02) | DRG 391 ==
LOC: ER 11:11 → ICU 12:43
PROVIDERS: Internal Medicine; Admitting Provider Family Medicine; Emergency Provider Family Medicine; Family Provider Internal Medicine; PCP Internal Medicine; Visit Provider Family Medicine
DX: R10.11 Right upper quadrant pain (principal); N18.6 End stage renal disease; I50.23 Acute on chronic systolic (congestive) heart failure; K81.0 Acute cholecystitis; I13.2 Hypertensive heart and chronic kidney disease with heart failure and with stage 5 chronic kidney disease, or end stage renal disease; I42.9 Cardiomyopathy, unspecified; J84.03 Idiopathic pulmonary hemosiderosis; E87.2 Acidosis; R18.8 Other ascites; E11.22 Type 2 diabetes mellitus with diabetic chronic kidney disease; Z99.2 Dependence on renal dialysis; E87.5 Hyperkalemia; I25.10 Atherosclerotic heart disease of native coronary artery without angina pectoris; Z95.5 Presence of coronary angioplasty implant and graft; J44.9 Chronic obstructive pulmonary disease, unspecified; E78.2 Mixed hyperlipidemia; Z87.891 Personal history of nicotine dependence; I25.2 Old myocardial infarction; I27.20 Pulmonary hypertension, unspecified; E83.10 Disorder of iron metabolism, unspecified; Z91.15 Patient's noncompliance with renal dialysis; K57.30 Diverticulosis of large intestine without perforation or abscess without bleeding; D89.9 Disorder involving the immune mechanism, unspecified; R91.8 Other nonspecific abnormal finding of lung field; D69.6 Thrombocytopenia, unspecified; K72.90 Hepatic failure, unspecified without coma; K76.0 Fatty (change of) liver, not elsewhere classified; E27.9 Disorder of adrenal gland, unspecified; D63.1 Anemia in chronic kidney disease
CPT/HCPCS: 12345; 36415; 71045; 74177; 74181; 76705; 80053; 80307; 81001; 82550; 82977; 83540; 83550; 83605; 83690; 83735; 83880; 84100; 84145; 84484; 85025; 85610; 86618; 86666; 86705; 86706; 86709; 86757; 86803; 87040; 87086; 87340; 90935; 93005; 96375; 99283; C9113; J0610; J2270; J2405; J2543; J3370; J3490; J7050; J7512; Q0169; Q3014; Q9967

== ENCOUNTER 2020-05-13 12:29 | Outpatient (CLI) | payer MEDICARE, MEDICAID, SELFPAY ==
[2020-05-13 13:13] LABS: Ferritin 637 ng/mL (30-400); Iron 80 ug/dL (59-158); Percent Saturation 35.8 % (20-50); Total Iron Binding Capacity 223 mcg/dl; Unsaturated Iron Binding 143 ug/dL (112-347)
[2020-05-13 14:08] VITALS: O2SAT 94
--- NOTE | 2020-05-13 14:20 | PFTS_ITS ---
Date of Study:05/13/20 Date of Dictation: MECHANICS: Forced vital capacity (FVC) is reduced. Forced expiratory volume in one second (FEV1) is . FEV1/FVC is normal. FLOW VOLUME LOOP: Narrow. LUNG VOLUMES: Total lung capacity (TLC) is reduced. Residual volume (RV) is reduced. DIFFUSING CAPACITY FOR CARBON MONOXIDE: Moderately reduced. INTERPRETATION: The pulmonary function tests are consistent with severe restriction. There is no significant postbronchodilator response. Lung volumes are consistent with restrictive lung disease. Gas exchange (DLCO) is moderately reduced. MTDD
== END 2020-05-13 12:30 | disposition home or self-care (01) ==
LOC: RT 12:30
PROVIDERS: Family Provider Internal Medicine; PCP Internal Medicine; Visit Provider Internal Medicine Critical Care Medicine
DX: J84.03 Idiopathic pulmonary hemosiderosis (principal); D64.9 Anemia, unspecified
CPT/HCPCS: 36415; 82728; 83540; 83550; 94060; 94726; 94729; J7611

== ENCOUNTER 2020-05-24 08:48 | Emergency (ER) | payer MEDICARE, MEDICAID, SELFPAY ==
[2020-05-24] VITALS (14 sets, daily range): BP systolic 154–179; BP diastolic 100–118; PULSE 83–92; RESP 18–22; TEMP 36.6; O2SAT 87–100; BMI 26.5
--- NOTE | 2020-05-24 09:08 | ED_ITS ---
HPI - Nausea/Vomiting/Diarrhea General: Chief complaint: Nausea/Vomiting/Diarrhea Stated complaint: Diarrhea Time Seen by Provider: 05/24/20 08:59 History of Present Illness: HPI Narrative: 50-year-old male presents to the emergency room with complaints of nausea and vomiting. Patient has a history of pulmonary hemosiderosis and end-stage renal disease he gets hemodialysis that he usually does at home he was supposed to do it yesterday but did not. He has noticed some blood on the paper after he has a bowel movement he is having multiple bowel movements per day they have been soft and semi-formed. He was recently treated with antibiotics for what was thought to be a acute cholecystitis he initially was hospitalized our facility and then there was a transfer to [facility] transfer summary reviewed. He had markedly elevated enzymes. He denies any hematemesis although he has been vomiting some. He is not had any frankly bloody bloody stools or bloody diarrhea. MD elicited complaint: nausea and vomiting Associated nausea: No Associated symtoms: Denies bloating, chest pain, dysuria, fatigue, malaise or nausea Review of Systems Const: Denies: fever(s), chills, body aches, change in appetite, fatigue or malaise ENMT: Denies: throat pain, ear or mastoid pain, nasal discharge or nasal congestion Card: Denies: chest pain, edema, dyspnea on exertion or orthopnea Resp: Denies: dyspnea, productive cough or non-productive cough GI: Denies: abdominal pain, nausea, vomiting, hematemesis, coffee ground emesis, diarrhea, constipation, bloating, hematochezia or melena : Denies: flank pain, dysuria, urinary frequency or urinary urgency Skin/Breast: Denies: rash or pruritus PFSH ED PFSH: Medical History Atherosclerotic heart disease of [place] coronary artery without angina pectoris Benign essential hypertension Cardiomyopathy CHF NYHA class III (symptoms with mildly strenuous activities) COPD (chronic obstructive pulmonary disease) Diabetes mellitus Dyslipidemia Fistula Left Wrist Headache Hemoptysis Hemoptysis Mixed hyperlipidemia Nicotine dependence, cigarettes, uncomplicated Non-ST elevation (NSTEMI) myocardial infarction Pulmonary hypertension Right-sided chest pain Surgical History H/O elbow surgery H/O hand surgery H/O neck surgery History of back surgery History of intravascular stent placement History of thoracotomy Family History Grandmother , In her 50's Myocardial infarction Father Diabetes Mother Diabetes Social History Smoking and tobacco status: former smoker Quit status (tobacco): has quit using tobacco Year quit tobacco: 1999 - 2PPD x 20 Years Alcohol intake: current Alcohol intake frequency: holidays/special occasions only Lives independently: Yes Household members: spouse Marital status: Current occupational status: disabled History of recent travel: No Current gender identity: Male Physical Exam Const: COMMON NORMALS: no acute distress GENERAL APPEARANCE: cooperative and comfortable ORIENTATION/CONSCIOUSNESS: Yes awake, Yes oriented to person, Yes oriented to place and Yes oriented to time HENMT: COMMON NORMALS: normocephalic and atraumatic HEAD & SCALP: normocephalic and atraumatic Eye: COMMON NORMALS: Equal, round and reactive pupils present, EOMs intact bilaterally, conjunctivae normal and no scleral icterus CONJUNCTIVA: Yes conjunctivae normal PUPIL: Yes Equal, round and reactive pupils present Neck/C-Spine: COMMON NORMALS: full ROM, no lymphadenopathy, supple and no JVD Lymph: LYMPHATIC: no lymphadenopathy noted and no lymphedema noted Resp: COMMON NORMALS: normal respiratory effort, No retractions, No use of accessory muscles and clear to auscultation bilaterally AUSCULTATION: clear to auscultation bilaterally Cardio: COMMON NORMALS: no JVD, regular rate, regular rhythm and No murmurs present (Cardio) RATE: regular rate RHYTHM: regular rhythm GI: COMMON NORMALS: Soft to palpation and No hepatosplenomegaly present AUSCULTATION: Yes normoactive bowel sounds PALPATION: Yes Soft to palpation, No Tenderness to palpation present (GI), No Guarding due to palpation present (GI) and Yes No hepatosplenomegaly present Extremity: COMMON NORMALS: normal to inspection, capillary refill normal, no clubbing, cyanosis or edema, no calf tenderness and no pedal edema Neuro: SENSORIUM/ORIENTATION: Yes oriented to person, Yes oriented to place and Yes oriented to time Skin: COMMON NORMALS: no rashes or lesions noted GENERAL SKIN EXAM: no rashes or lesions noted Course Vital Signs: Vital signs: Vital Signs Temperature 97.9 F 05/24/20 08:52 Pulse Rate 86 05/24/20 18:00 Respiratory Rate 20 H 05/24/20 18:00 Blood Pressure 163/108 05/24/20 18:00 Pulse Oximetry 91 05/24/20 18:00 MDM - Nausea/Vomiting/Diarrhea MDM Narrative: Medical decision making narrative: Patient presents with market elevation of liver enzymes edema around the gallbladder. He is needing to have dialysis and he is hyperkalemic. Unfortunately he required ICU care and we do not have ICU available. He will also need nephrology and gastroenterology for his elevated liver enzymes. While we have nephrology available we do not have gastroenterology available. We will go ahead and transfer to [facility] he was seen there previously after being admitted here he was transferred to [facility] on his last hospitalization. Patient is agreeable. We did treat his hyperkalemia and rechecked his potassium was down to 5.2. Discussed with hospitalist at [facility] they will accept patient in transfer. Lab Data: Labs: Lab Results 05/24/20 05/24/20 05/24/20 Range/Units 09:32 09:32 09:32 WBC 20.4 H (4.0-10.0) 10^3/ uL RBC 3.58 L (4.1-5.3) 10^6/u L Hgb 12.1 (11.7-16.6) g/dL Hct 37.9 L (42.0-52.0) % MCV 105.9 H (80-94) fL MCH 33.8 (28.0-34.0) pg MCHC 31.9 (30.0-36.0) g/dL RDW 18.4 H (12.1-15.1) % Plt Count 157 (130-400) 10^3/c mm MPV 10.3 (7.4-10.4) fL Neut % (Auto) 86.2 % Lymph % (Auto) 4.3 % [place] % (Auto) 7.9 % Eos % (Auto) 0.0 % Baso % (Auto) 0.2 % Neut # (Auto) 17.61 H (1.8-7.7) 10^3/u L Lymph # (Auto) 0.9 (0.8-4.8) 10^3/u L [place] # (Auto) 1.6 H (0.2-0.9) 10^3/u L Eos # (Auto) 0.0 (0.0-0.8) 10^3/u L Baso # (Auto) 0.0 (0.0-0.1) 10^3/u L Nucleated RBC % (a uto) 0.3 % Nucleated RBCs # 0.1 /100WBC PT 20.20 H (10.5-13.3) SECO NDS INR 1.66 H (0.8-1.2) APTT 28.6 (23.9-36.7) SECO NDS Sodium (136-145) mmol/L Potassium (3.5-5.1) mmol/L Chloride (98-107) mmol/L Carbon Dioxide (22-29) mmol/L Anion Gap (5-19) BUN (6-20) mg/dL Creatinine (0.7-1.2) mg/dL GFR Calculation (90-130) mL/min Glucose (65-115) mg/dL Calculated Osmolal ity (285-295) mOsm/k g Lactic Acid (0.5-2.2) mmol/L Lactic Acid (Sepsi s) (0.5-2.2) mmol/L Calcium (8.5-10.5) mg/dL Total Bilirubin (0.15-1.2) mg/dL AST (0-40) U/L ALT (0-41) U/L Alkaline Phosphata se (40-130) IU/L Ammonia 58 (16-60) umol/L Troponin T Baselin e (0-15) ng/L Troponin T 120 Min squaxin (0-15) ng/L Delta Troponin T (0-10) ABS# Troponin T Hi Sens 6Hr (0-15) ng/L Troponin T Hi Sens 6Hr Delta (0-12) ng/L Total Protein (6.6-8.7) g/dL Albumin (3.5-5.2) g/dL Globulin (1.3-4.6) g/dL Lipase (13-60) U/L Urine Color (Yellow) Urine Appearance (CLEAR) Urine pH (5-7) Ur Specific Gravit y (1.005-1.030) Urine Protein (Negative) Urine Glucose (UA) (Normal) Urine Ketones (Negative) Urine Blood (Negative) Urine Nitrate (Negative) Urine Bilirubin (NEGATIVE) Urine Urobilinogen (Negative) mg/dL Ur Leukocyte Barbara ase (Negative) Urine RBC (0-2) /hpf Urine WBC (0-5) /hpf Ur Squamous Epith Cells (0-5) Amorphous Sediment Urine Bacteria (NONE) 05/24/20 05/24/20 05/24/20 Range/Units 09:32 09:32 09:32 WBC (4.0-10.0) 10^3/ uL RBC (4.1-5.3) 10^6/u L Hgb (11.7-16.6) g/dL Hct (42.0-52.0) % MCV (80-94) fL MCH (28.0-34.0) pg MCHC (30.0-36.0) g/dL RDW (12.1-15.1) % Plt Count (130-400) 10^3/c mm MPV (7.4-10.4) fL Neut % (Auto) % Lymph % (Auto) % [place] % (Auto) % Eos % (Auto) % Baso % (Auto) % Neut # (Auto) (1.8-7.7) 10^3/u L Lymph # (Auto) (0.8-4.8) 10^3/u L [place] # (Auto) (0.2-0.9) 10^3/u L Eos # (Auto) (0.0-0.8) 10^3/u L Baso # (Auto) (0.0-0.1) 10^3/u L Nucleated RBC % (a uto) % Nucleated RBCs # /100WBC PT (10.5-13.3) SECO NDS INR (0.8-1.2) APTT (23.9-36.7) SECO NDS Sodium 137 (136-145) mmol/L Potassium 6.0 H (3.5-5.1) mmol/L Chloride 93 L (98-107) mmol/L Carbon Dioxide 13 L (22-29) mmol/L Anion Gap 37.0 H (5-19) BUN 119 H* D (6-20) mg/dL Creatinine 11.3 H* (0.7-1.2) mg/dL GFR Calculation 4.8 L (90-130) mL/min Glucose 109 (65-115) mg/dL Calculated Osmolal ity 287 (285-295) mOsm/k g Lactic Acid 5.5 H* (0.5-2.2) mmol/L Lactic Acid (Sepsi s) (0.5-2.2) mmol/L Calcium 8.4 L (8.5-10.5) mg/dL Total Bilirubin 3.0 H (0.15-1.2) mg/dL AST 1963 H (0-40) U/L ALT 1571 H (0-41) U/L Alkaline Phosphata se 66 (40-130) IU/L Ammonia (16-60) umol/L Troponin T Baselin e 266 H* (0-15) ng/L Troponin T 120 Min squ[place] (0-15) ng/L Delta Troponin T (0-10) ABS# Troponin T Hi Sens 6Hr (0-15) ng/L Troponin T Hi Sens 6Hr Delta (0-12) ng/L Total Protein 6.7 (6.6-8.7) g/dL Albumin 4.5 (3.5-5.2) g/dL Globulin 2.2 (1.3-4.6) g/dL Lipase 144 H (13-60) U/L Urine Color (Yellow) Urine Appearance (CLEAR) Urine pH (5-7) Ur Specific Gravit y (1.005-1.030) Urine Protein (Negative) Urine Glucose (UA) (Normal) Urine Ketones (Negative) Urine Blood (Negative) Urine Nitrate (Negative) Urine Bilirubin (NEGATIVE) Urine Urobilinogen (Negative) mg/dL Ur Leukocyte Barbara ase (Negative) Urine RBC (0-2) /hpf Urine WBC (0-5) /hpf Ur Squamous Epith Cells (0-5) Amorphous Sediment Urine Bacteria (NONE) 05/24/20 05/24/20 05/24/20 Range/Units 10:10 11:27 12:41 WBC (4.0-10.0) 10^3/ uL RBC (4.1-5.3) 10^6/u L Hgb (11.7-16.6) g/dL Hct (42.0-52.0) % MCV (80-94) fL MCH (28.0-34.0) pg MCHC (30.0-36.0) g/dL RDW (12.1-15.1) % Plt Count (130-400) 10^3/c mm MPV (7.4-10.4) fL Neut % (Auto) % Lymph % (Auto) % [place] % (Auto) % Eos % (Auto) % Baso % (Auto) % Neut # (Auto) (1.8-7.7) 10^3/u L Lymph # (Auto) (0.8-4.8) 10^3/u L [place] # (Auto) (0.2-0.9) 10^3/u L Eos # (Auto) (0.0-0.8) 10^3/u L Baso # (Auto) (0.0-0.1) 10^3/u L Nucleated RBC % (a uto) % Nucleated RBCs # /100WBC PT (10.5-13.3) SECO NDS INR (0.8-1.2) APTT (23.9-36.7) SECO NDS Sodium (136-145) mmol/L Potassium (3.5-5.1) mmol/L Chloride (98-107) mmol/L Carbon Dioxide (22-29) mmol/L Anion Gap (5-19) BUN (6-20) mg/dL Creatinine (0.7-1.2) mg/dL GFR Calculation (90-130) mL/min Glucose (65-115) mg/dL Calculated Osmolal ity (285-295) mOsm/k g Lactic Acid (0.5-2.2) mmol/L Lactic Acid (Sepsi s) 5.3 H* (0.5-2.2) mmol/L Calcium (8.5-10.5) mg/dL Total Bilirubin (0.15-1.2) mg/dL AST (0-40) U/L ALT (0-41) U/L Alkaline Phosphata se (40-130) IU/L Ammonia (16-60) umol/L Troponin T Baselin e (0-15) ng/L Troponin T 120 Min squaxin 244.3 H (0-15) ng/L Delta Troponin T -21.7 L (0-10) ABS# Troponin T Hi Sens 6Hr (0-15) ng/L Troponin T Hi Sens 6Hr Delta (0-12) ng/L Total Protein (6.6-8.7) g/dL Albumin (3.5-5.2) g/dL Globulin (1.3-4.6) g/dL Lipase (13-60) U/L Urine Color Dark yellow (Yellow) Urine Appearance Sl hazy (CLEAR) Urine pH 5 (5-7) Ur Specific Gravit y 1.025 (1.005-1.030) Urine Protein 3+ H (Negative) Urine Glucose (UA) Norm (Normal) Urine Ketones Negative (Negative) Urine Blood 2+ H (Negative) Urine Nitrate Negative (Negative) Urine Bilirubin 1+ H (NEGATIVE) Urine Urobilinogen Norm (Negative) mg/dL Ur Leukocyte Barbara ase Negative (Negative) Urine RBC Rare (0-2) /hpf Urine WBC 10-15 H (0-5) /hpf Ur Squamous Epith Cells Rare (0-5) Amorphous Sediment 2+ Urine Bacteria 1+ H (NONE) 05/24/20 05/24/20 Range/Units 15:34 15:34 WBC (4.0-10.0) 10^3/ uL RBC (4.1-5.3) 10^6/u L Hgb (11.7-16.6) g/dL Hct (42.0-52.0) % MCV (80-94) fL MCH (28.0-34.0) pg MCHC (30.0-36.0) g/dL RDW (12.1-15.1) % Plt Count (130-400) 10^3/c mm MPV (7.4-10.4) fL Neut % (Auto) % Lymph % (Auto) % [place] % (Auto) % Eos % (Auto) % Baso % (Auto) % Neut # (Auto) (1.8-7.7) 10^3/u L Lymph # (Auto) (0.8-4.8) 10^3/u L [place] # (Auto) (0.2-0.9) 10^3/u L Eos # (Auto) (0.0-0.8) 10^3/u L Baso # (Auto) (0.0-0.1) 10^3/u L Nucleated RBC % (a uto) % Nucleated RBCs # /100WBC PT (10.5-13.3) SECO NDS INR (0.8-1.2) APTT (23.9-36.7) SECO NDS Sodium 137 (136-145) mmol/L Potassium 5.2 H (3.5-5.1) mmol/L Chloride 95 L (98-107) mmol/L Carbon Dioxide 15 L (22-29) mmol/L Anion Gap 32.2 H (5-19) BUN 118 H* (6-20) mg/dL Creatinine 10.5 H* (0.7-1.2) mg/dL GFR Calculation 5.2 L (90-130) mL/min Glucose 119 H (65-115) mg/dL Calculated Osmolal ity 287 (285-295) mOsm/k g Lactic Acid (0.5-2.2) mmol/L Lactic Acid (Sepsi s) (0.5-2.2) mmol/L Calcium 7.5 L (8.5-10.5) mg/dL Total Bilirubin (0.15-1.2) mg/dL AST (0-40) U/L ALT (0-41) U/L Alkaline Phosphata se (40-130) IU/L Ammonia (16-60) umol/L Troponin T Baselin e (0-15) ng/L Troponin T 120 Min squ[place] (0-15) ng/L Delta Troponin T (0-10) ABS# Troponin T Hi Sens 6Hr 233.7 H (0-15) ng/L Troponin T Hi Sens 6Hr Delta -32.3 L (0-12) ng/L Total Protein (6.6-8.7) g/dL Albumin (3.5-5.2) g/dL Globulin (1.3-4.6) g/dL Lipase (13-60) U/L Urine Color (Yellow) Urine Appearance (CLEAR) Urine pH (5-7) Ur Specific Gravit y (1.005-1.030) Urine Protein (Negative) Urine Glucose (UA) (Normal) Urine Ketones (Negative) Urine Blood (Negative) Urine Nitrate (Negative) Urine Bilirubin (NEGATIVE) Urine Urobilinogen (Negative) mg/dL Ur Leukocyte Barbara ase (Negative) Urine RBC (0-2) /hpf Urine WBC (0-5) /hpf Ur Squamous Epith Cells (0-5) Amorphous Sediment Urine Bacteria (NONE) Discharge Plan Discharge Patient Disposition: Transfer to ED Clinical Impression: ESRD (end stage renal disease), Hyperkalemia, Elevated liver enzymes, Anemia, Atherosclerotic heart disease of [place] coronary artery without angina pectoris, Benign essential hypertension, CHF NYHA class III (symptoms with mildly strenuous activities), Cardiomyopathy, Pulmonary hypertension Prescriptions: No Action promethazine 12.5 mg tablet 12.5 mg PO Q6H PRN (Reason: Nausea) RF: 0 aspirin 81 mg tablet,delayed release (DR/EC) 81 mg PO DAILY RF: 0 nitroglycerin [Nitrostat] 0.4 mg tablet, sublingual 0.4 mg SUBLINGUAL Q5M PRN (Reason: Pain) RF: 0 furosemide [Lasix] 20 mg tablet 60 mg PO QAM RF: 0 Auryxia 210 mg iron tablet See Rx Instructions .ROUTE .COMPLEX RF: 0 amlodipine 10 mg tablet 10 mg PO BEDTIME RF: 0 metoprolol tartrate 50 mg tablet 50 mg PO DAILY RF: 0 oxycodone-acetaminophen 5-325 mg tablet 1 tab PO Q6H PRN (Reason: Moderate To Severe Pain) 7 Days Qty: 28 RF: 0 losartan 25 mg tablet 25 mg PO DAILY Qty: 90 RF: 3 clonidine HCl 0.1 mg Tablet 0.1 mg PO DAILY PRN (Reason: Hypertension) RF: 0 prednisone 20 mg tablet 40 mg PO DAILY RF: 0 clonazepam 0.5 mg tablet See Rx Instructions .ROUTE .COMPLEX RF: 0 lidocaine-prilocaine 2.5-2.5 % cream See Rx Instructions .ROUTE .COMPLEX RF: 0 calcitriol 0.5 mcg capsule See Rx Instructions .ROUTE .COMPLEX RF: 0 gabapentin 100 mg Capsule 100 mg PO BID RF: 0 Sensipar 30 mg tablet 30 mg PO DAILY RF: 0 Velphoro 500 mg tablet,chewable See Rx Instructions .ROUTE .COMPLEX RF: 0 Heparin Injection See Rx Instructions .ROUTE .COMPLEX RF: 0 pantoprazole 40 mg tablet,delayed release (DR/EC) 40 mg PO QAM RF: 0 sildenafil 50 mg tablet 50 mg PO PRN PRN (Reason: Erectile Dysfunction) RF: 0 RenaPlex-D 800 mcg-12.5 mg -2,000 unit tablet See Rx Instructions .ROUTE .COMPLEX RF: 0 Referrals: Michael Eubanks DO [Primary Care Provider] - Discharge Date/Time: 05/24/20 20:12 Coding Level of Care Code ED Crop Specialist for Chg Fwd Exam Comprehensive
--- NOTE | 2020-05-24 09:23 | XRR_ITS ---
PROCEDURE INFORMATION: Exam: XR Chest, 1 View Exam date and time: 05/24/2020 9:25 AM Age: 50 years old Clinical indication: Dyspnea; Additional info: Dyspnea/cough TECHNIQUE: Imaging protocol: XR of the chest Views: 1 view. COMPARISON: CR XR chest 1V portable [id number] 04/11/2020 11:39 AM FINDINGS: Lungs: Interval worsening in left basilar airspace/pleural disease with partial obscuration of the left hemidiaphragm. Interstitial prominence and mild right basilar airspace disease. Pleural space: Small right pleural effusion. Heart/Mediastinum: Borderline cardiomegaly with prominent epicardial fat. Bones/joints: Degenerative change. Cervical spine fusion. XR/XR chest 1V portable [id number] IMPRESSION: Interval worsening in left basilar airspace/pleural disease with partial obscuration of the left hemidiaphragm.
--- NOTE | 2020-05-24 09:24 | ECG_ITS ---
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 Measurements Intervals [place] Rate: 89 P: 38 MN: 156 QRS: -2 QRSD: 102 T: 126 QT: 418 QTc: 510 Interpretive Statements SINUS RHYTHM POSSIBLE LEFT ATRIAL ENLARGEMENT [-0.1mV P WAVE IN V1/V2] LEFT VENTRICULAR HYPERTROPHY AND ST-T CHANGE [VOLTAGE CRITERIA PLUS ST/T ABNORMALITY] Nonspecific ST-T changes Compared to ECG 04/10/2020 20:31:34 No significant changes Electronically Signed On 05-24-2020 20:42:02 CDT by Isauro Landis M.D. [id number]
[2020-05-24] MEDS: sodium chloride 0.9% 1,000 ML 999 ML IV (09:38)
[2020-05-24] MEDS: ondansetron 2 mg/ML SDV 2 mL 4 MG IVP (09:39)
[2020-05-24 09:42] LABS: Basophils % 0.2 %; Hematocrit 37.9 % (42.0-52.0); Hemoglobin 12.1 g/dL (11.7-16.6); Lymphocytes # 0.9 10^3/uL (0.8-4.8); Lymphocytes % 4.3 %; Mean Corpuscular HGB Conc 31.9 g/dL (30.0-36.0); Mean Corpuscular Hemoglobin 33.8 pg (28.0-34.0); Mean Corpuscular Volume 105.9 fL (80-94); Mean Platelet Volume 10.3 fL (7.4-10.4); Monocytes # 1.6 10^3/uL (0.2-0.9); Monocytes % 7.9 %; Neutrophils # 17.61 10^3/uL (1.8-7.7); Neutrophils % 86.2 %; Nucleated Red Blood Cells # 0.1 /100WBC; Nucleated Red Blood Cells % 0.3 %; Platelet Count 157 10^3/cmm (130-400); Red Blood Count 3.58 10^6/uL (4.1-5.3); Red Cell Distribution Width 18.4 % (12.1-15.1); White Blood Count 20.4 10^3/uL (4.0-10.0)
[2020-05-24 09:59] LABS: INR 1.66 (0.8-1.2)
[2020-05-24 10:00] LABS: Partial Thromboplastin Time 28.6 SECONDS (23.9-36.7)
[2020-05-24 10:07] LABS: Ammonia 58 umol/L (16-60)
[2020-05-24 10:13] LABS: Albumin Level 4.5 g/dL (3.5-5.2); Alkaline Phosphatase 66 IU/L (40-130); Calcium 8.4 mg/dL (8.5-10.5); Carbon Dioxide 13 mmol/L (22-29); Chloride 93 mmol/L (98-107); Globulin 2.2 g/dL (1.3-4.6); Glomerular Filtration Rate 4.8 mL/min (90-130); Glucose 109 mg/dL (65-115); Lipase 144 U/L (13-60); Sodium 137 mmol/L (136-145); Total Protein 6.7 g/dL (6.6-8.7)
[2020-05-24 10:14] LABS: Osmolality Calculated 287 mOsm/kg (285-295)
[2020-05-24 10:15] LABS: Blood Urea Nitrogen 119 mg/dL (6-20)
[2020-05-24 10:20] LABS: Alanine Aminotransferase 1571 U/L (0-41); Aspartate Amino Transferase 1963 U/L (0-40)
--- NOTE | 2020-05-24 10:26 | CTR_ITS ---
PROCEDURE INFORMATION: Exam: CT Abdomen And Pelvis With Contrast Exam date and time: 05/24/2020 10:40 AM Age: 50 years old Clinical indication: Abdominal pain; Patient HX: Lower abd pain TECHNIQUE: Imaging protocol: Computed tomography of the abdomen and pelvis with intravenous contrast. Radiation optimization: All CT scans at this facility use at least one of these dose optimization techniques: automated exposure control; mA and/or kV adjustment per patient size (includes targeted exams where dose is matched to clinical indication); or iterative reconstruction. Contrast material: VISI 320; Contrast volume: 75 ml; Contrast route: INTRAVENOUS (IV); COMPARISON: CT abdomen pelvis w con* [id number] 04/10/2020 10:34 AM RADIATION DOSE METRICS: Total DLP (mGy-cm): 997.6 FINDINGS: Detailed evaluation of the abdominal and pelvic viscera is somewhat limited in the absence of intravenous contrast. Lungs: Interval decrease in size of calcified ovoid lesion in the right lung base, which currently measures 2.3 x 2.1 cm, and previously measured 3.2 x 2.4 cm. Additional interstitial prominence, parenchymal stranding, and mild basilar airspace disease. Large residual left pleural effusion and trace right pleural effusion. Borderline cardiomegaly. Liver: Fatty infiltration of the liver. Gallbladder and bile ducts: Infiltration of pericholecystic fat and or fluid, which can be better evaluated with ultrasound, as clinically indicated. Pancreas: Poorly defined hypodensity and calcifications in the proximal pancreas. Spleen: Enlarged spleen measuring 14.3 cm in length. Adrenals: Stable configuration of the adrenals. Kidneys and ureters: Severe bilateral renal atrophy. No hydronephrosis. Mild bilateral infiltration of perinephric fat. Stomach and bowel: 13 mm duodenal diverticulum. Wall thickening in the nondistended stomach. No significant small bowel dilatation. Scattered diverticula and mild sigmoid colon wall thickening. Appendix: No acute appendicitis. Intraperitoneal space: Stable infiltration of mesenteric fat and intraperitoneal fluid. Vasculature: Prominent vascular calcification. Normal caliber of the abdominal aorta. Lymph nodes: Subcentimeter lymph nodes. Bladder: Circumferential wall thickening in the nondistended bladder. Reproductive: Unremarkable as visualized. Bones/joints: Osteopenia. Degenerative change and disc bulging. Soft tissues: Prominent subcutaneous edema. Umbilical and inguinal hernias with fluid in the left inguinal hernia. CT/CT abdomen pelvis w con* [id number] IMPRESSION: 1. Infiltration of pericholecystic fat and or fluid, which can be better evaluated with ultrasound, as clinically indicated. 2. Severe bilateral renal atrophy. 3. Stable infiltration of mesenteric fat and intraperitoneal fluid. 4. Umbilical and inguinal hernias with fluid in the left inguinal hernia. 5. Additional findings as described above. Radiation Dose CTDIVOL = (mGy): DLP = 997.6 (mGy-cm)
[2020-05-24 10:38] LABS: Add Urine Microscopic? YES; Bilirubin Urine 1+ (NEGATIVE); Blood Urine 2+ (Negative); Glucose Urine UA Norm (Normal); Ketones Urine Negative (Negative); Leukocyte Esterase Urine Negative (Negative); Nitrate Urine Negative (Negative); Protein Urine 3+ (Negative); RBC Urine RARE /hpf (0-2); Specific Gravity, Urine 1.025 (1.005-1.030); Squamous Epithelial Cell Urine RARE (0-5); Urine Appearance SL Hazy (CLEAR); Urine Color Dark Yellow (Yellow); Urobilinogen Urine Norm (Negative); pH Urine 5 (5-7)
[2020-05-24 10:39] LABS: Add Urine Culture? No; Amorphous Sediment Urine 2+; Bacteria Urine 1+
[2020-05-24 10:41] LABS: Lactic Sepsis W/Reflex 5.5 mmol/L (0.5-2.2); Troponin(5th) Baseline 266 ng/L (0-15)
[2020-05-24] MEDS: iodixanol 320 mg/mL 100mL Btl IV (10:56)
[2020-05-24 10:59] LABS: Reflex Lactate Order REFLEX LACTIC ORDERD
[2020-05-24] MEDS: sodium polystyrene sulfonate 15 gm/60 mL Btl 30 GM PO (11:09)
[2020-05-24] MEDS: calcium gluconate 0.1 gm/mL 10% SDV 10mL 1 GM IVP ×2 (11:12→16:57)
[2020-05-24] MEDS: dextrose 50% syringe 50 mL IVP (11:18)
[2020-05-24] MEDS: vancomycin 1,000 MG in sodium chloride 0.9% 250 ML 250 MG IV (11:19)
[2020-05-24] MEDS: piperacillin-tazobactam 2.25 GM in sodium chloride 0.9% (plus) 50 ML IV (11:19)
[2020-05-24] MEDS: insulin regular-human 100 units/1 mL 5 UNIT IVP (11:20)
--- NOTE | 2020-05-24 11:24 | ECG_ITS ---
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 Measurements Intervals [place] Rate: 86 P: 48 OR: 155 QRS: 7 QRSD: 101 T: 138 QT: 423 QTc: 508 Interpretive Statements SINUS RHYTHM LEFT ATRIAL ENLARGEMENT [-0.15mV P WAVE IN V1/V2] ST DEVIATION AND MODERATE T-WAVE ABNORMALITY, CONSIDER LATERAL ISCHEMIA [-0.1+ mV T WAVE IN I/aVL/V5/V6] Compared to ECG 05/24/2020 10:09:01 T-wave abnormality now present Possible ischemia now present Left ventricular hypertrophy no longer present ST (T wave) deviation no longer present Electronically Signed On 05-24-2020 20:46:52 CDT by Isauro Landis M.D. [id number]
[2020-05-24] MEDS: metoclopramide 5 mg/mL SDV 2 mL 10 MG IVP (11:37)
[2020-05-24 12:18] LABS: Troponin 5 2HR Delta -21.7 ABS# (0-10)
[2020-05-24 12:19] LABS: Troponin 5 2HR 244.3 ng/L (0-15)
[2020-05-24] MEDS: pantoprazole 40 mg SDV IVP (13:08)
[2020-05-24] MEDS: morphine 4 mg/mL SDV 1 mL IVP (13:10)
[2020-05-24 15:00] LABS: Lactic Acid level (Lactate) 5.3 mmol/L (0.5-2.2)
--- NOTE | 2020-05-24 15:24 | ECG_ITS ---
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 Measurements Intervals [place] Rate: 83 P: 41 OR: 151 QRS: -1 QRSD: 105 T: 144 QT: 428 QTc: 505 Interpretive Statements SINUS RHYTHM POSSIBLE LEFT ATRIAL ENLARGEMENT [-0.1mV P WAVE IN V1/V2] LEFT VENTRICULAR HYPERTROPHY AND ST-T CHANGE [VOLTAGE CRITERIA PLUS ST/T ABNORMALITY] Compared to ECG 05/24/2020 11:10:45 Left ventricular hypertrophy now present ST (T wave) deviation now present T-wave abnormality no longer present Possible ischemia no longer present Electronically Signed On 05-24-2020 20:47:42 CDT by Isauro Landis M.D. [id number]
[2020-05-24] MEDS: sodium chloride 0.9% 1,000 ML 125 ML IV (15:38)
[2020-05-24 16:14] LABS: Anion Gap 32.2 (5-19); Calcium 7.5 mg/dL (8.5-10.5); Carbon Dioxide 15 mmol/L (22-29); Chloride 95 mmol/L (98-107); Glomerular Filtration Rate 5.2 mL/min (90-130); Glucose 119 mg/dL (65-115); Potassium 5.2 mmol/L (3.5-5.1); Sodium 137 mmol/L (136-145)
[2020-05-24 16:27] LABS: Osmolality Calculated 287 mOsm/kg (285-295)
[2020-05-24 16:31] LABS: Blood Urea Nitrogen 118 mg/dL (6-20)
[2020-05-24 16:32] LABS: Troponin 5 6HR Delta -32.3 ng/L (0-12)
[2020-05-24 16:34] LABS: Troponin 5 6HR 233.7 ng/L (0-15)
[2020-05-24] MEDS: metoprolol tartrate 1 mg/1 mL SDV 5 mL 2.5 MG IV (16:55)
== END 2020-05-24 20:12 ==
LOC: ER 09:10
PROVIDERS: Emergency Provider Family Medicine; PCP Internal Medicine
DX: I13.2 Hypertensive heart and chronic kidney disease with heart failure and with stage 5 chronic kidney disease, or end stage renal disease (principal); N18.6 End stage renal disease; I50.9 Heart failure, unspecified; E87.5 Hyperkalemia; R74.8 Abnormal levels of other serum enzymes; D64.9 Anemia, unspecified; I25.10 Atherosclerotic heart disease of native coronary artery without angina pectoris; I42.9 Cardiomyopathy, unspecified; I27.20 Pulmonary hypertension, unspecified; Z79.82 Long term (current) use of aspirin; J44.9 Chronic obstructive pulmonary disease, unspecified; E11.22 Type 2 diabetes mellitus with diabetic chronic kidney disease; E78.2 Mixed hyperlipidemia; I25.2 Old myocardial infarction; Z87.891 Personal history of nicotine dependence
CPT/HCPCS: 12345; 36415; 71045; 74177; 80048; 80053; 81001; 81003; 82140; 83605; 83690; 84484; 85025; 85610; 85730; 87040; 93005; 96361; 96365; 96367; 96368; 96375; 96376; 99284; 99285; C9113; J0610; J1815; J2270; J2405; J2543; J2765; J3370; J3490; J7030; J7050; Q9967

== ENCOUNTER 2020-06-11 12:10 | Outpatient (CLI) | payer MEDICARE, MEDICAID, SELFPAY ==
[2020-06-11 13:27] LABS: INR 5.77 (0.8-1.2)
== END 2020-06-11 12:11 | disposition home or self-care (01) ==
LOC: LAB 12:13
PROVIDERS: PCP Internal Medicine; Visit Provider Internal Medicine
DX: I82.629 Acute embolism and thrombosis of deep veins of unspecified upper extremity (principal)
CPT/HCPCS: 85610

== ENCOUNTER 2020-07-01 22:21 | Inpatient (IN) | payer MEDICARE, MEDICAID, SELFPAY ==
[2020-07-01 22:32] VITALS: BP 140/85; PULSE 113; RESP 18; TEMP 38.3; O2SAT 82; BMI 28.7
--- NOTE | 2020-07-01 22:47 | XRR_ITS ---
PROCEDURE INFORMATION: Exam: XR Chest, 1 View Exam date and time: 07/02/2020 12:24 AM Age: 50 years old Clinical indication: Shortness of breath; Additional info: SOB, spitting blood TECHNIQUE: Imaging protocol: XR of the chest Views: Frontal portable upright view of the chest. COMPARISON: CR XR chest 1V portable [id number] 05/25/2020 12:10 AM FINDINGS: Tubes, catheters and devices: EKG leads are present overlying the chest. Lungs: The pulmonary vasculature is more congested and ill-defined. There is persistent stable left lower lobe opacity obscuring the left diaphragmatic and descending aortic shadows. Interval increase in heterogeneous air space opacities in the bilateral mid to lower lung zones. Mild right basilar pulmonary subsegmental atelectasis. Pleural space: Mildly increased moderate left pleural effusion. No pneumothorax. Minimal right pleural effusion. Heart/Mediastinum: Stable moderate cardiomegaly. Mediastinum: Stable. Bones/joints: C6-C7 disc prosthesis. Thoracic spine vertebral body marginal osteophytes are noted at multiple levels. XR/XR chest 1V portable [id number] IMPRESSION: 1. Increased pulmonary vascular congestion. 2. Stable left lower lobe atelectasis/consolidation. 3. Mildly increased moderate left pleural effusion. 4. Increased bilateral pulmonary infiltrates/atypical pulmonary edema. 5. Minimal right pleural effusion. 6. Mild right basilar pulmonary subsegmental atelectasis.
--- NOTE | 2020-07-01 22:48 | ECG_ITS ---
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 Measurements Intervals [place] Rate: 105 P: 32 [place]: 142 QRS: 1 QRSD: 96 T: 166 QT: 334 QTc: 442 Interpretive Statements SINUS TACHYCARDIA LEFT ATRIAL ENLARGEMENT [-0.15mV P WAVE IN V1/V2] LEFT VENTRICULAR HYPERTROPHY AND ST-T CHANGE [VOLTAGE CRITERIA PLUS ST/T ABNORMALITY] Compared to ECG 05/24/2020 15:23:32 Sinus rhythm no longer present ST (T wave) deviation still present Electronically Signed On 07-02-2020 19:37:10 CDT by Isauro Landis M.D. [id number]
--- NOTE | 2020-07-01 22:51 | W.ED.SOB ---
HPI - SOB/Dyspnea General: Chief Complaint: Shortness of Breath/Dyspnea Stated Complaint: been spitting blood all day / trouble breath Time Seen by Provider: 07/01/20 22:44 Source: patient Mode of arrival: ambulatory Limitations: no limitations History of Present Illness: HPI Narrative: 50-year-old male who has a history of congestive heart failure along with DVT in his right upper arm. Patient is currently on warfarin for that. He states he had increasing shortness of breath over the last month with it getting much worse today having fevers today. He states he is also been coughing up blood throughout the day. Denies any chest pain. He states he has had severe swelling of his lower extremities. Denies any vomiting or diarrhea. Denies any no known sick contacts. Associated symptoms: Reports fever(s); Deny abdominal pain, chest pain, nausea or vomiting Review of Systems Const: Reports: fever(s) Eyes: Denies: blurry vision or eye discomfort ENMT: Denies: throat pain or dental pain Card: Denies: chest pain Resp: Reports: dyspnea GI: Denies: abdominal pain, nausea, vomiting or diarrhea : Denies: dysuria Musc: Reports: extremity swelling Skin/Breast: Denies: rash Neuro: Denies: headache(s) Psych: Denies: depression Pranav/Lymph: Denies: easy bruising All/Imm: Denies: urticaria PFSH ED PFSH: Medical History Atherosclerotic heart disease of samish coronary artery without angina pectoris Benign essential hypertension Cardiomyopathy CHF NYHA class III (symptoms with mildly strenuous activities) COPD (chronic obstructive pulmonary disease) Diabetes mellitus Dyslipidemia Fistula Left Wrist Headache Hemoptysis Hemoptysis Mixed hyperlipidemia Nicotine dependence, cigarettes, uncomplicated Non-ST elevation (NSTEMI) myocardial infarction Pulmonary hypertension Right-sided chest pain Surgical History H/O elbow surgery H/O hand surgery H/O neck surgery History of back surgery History of intravascular stent placement History of thoracotomy Family History Grandmother , In her 50's Myocardial infarction Father Diabetes Mother Diabetes Social History Smoking and tobacco status: former smoker Quit status (tobacco): has quit using tobacco Year quit tobacco: 1999 - 2PPD x 20 Years Alcohol intake: current Alcohol intake frequency: holidays/special occasions only Lives independently: Yes Household members: spouse Marital status: Current occupational status: disabled History of recent travel: No Current gender identity: Male Physical Exam Const: COMMON NORMALS: patient oriented x3 GENERAL APPEARANCE: in distress and ill appearing HENMT: COMMON NORMALS: normocephalic and atraumatic HEAD & SCALP: normocephalic and atraumatic Eye: COMMON NORMALS: Equal, round and reactive pupils present and EOMs intact bilaterally PUPIL: Yes Equal, round and reactive pupils present Neck/C-Spine: COMMON NORMALS: full ROM and supple Chest: COMMONS NORMALS: normal inspection of the chest and normal palpation of entire chest wall Resp: COMMON NORMALS: normal respiratory effort, No retractions and No use of accessory muscles AUSCULTATION: rales Cardio: COMMON NORMALS: regular rhythm and No murmurs present (Cardio) RATE: tachycardic RHYTHM: regular rhythm GI: COMMON NORMALS: Normal to inspection, nondistended, normoactive bowel sounds present, Soft to palpation, non-tender and no masses PALPATION: Yes Soft to palpation Extremity: COMMON NORMALS: normal to inspection and full ROM NARRATIVE EXTREMITY EXAM: 2+ edema to lower extremities Neuro: COMMON NORMALS: patient oriented x3, moves all extremities and no focal motor deficits Psych: COMMON NORMALS: mental status grossly normal, Normal thought process present and cooperative THOUGHT PROCESS: Normal thought process present Skin: COMMON NORMALS: no rashes or lesions noted and no wounds GENERAL SKIN EXAM: no rashes or lesions noted Course Vital Signs: Vital signs: Vital Signs Temperature 98.8 F 07/01/20 22:57 Pulse Rate 105 H 07/01/20 23:43 Respiratory Rate 18 07/01/20 23:43 Blood Pressure 165/99 07/01/20 23:43 Pulse Oximetry 91 07/01/20 23:43 MDM - SOB/Dyspnea MDM Narrative: Medical decision making narrative: Marlon presents here with cough along with fever and shortness of breath. Patient has sirs criteria with normal blood pressure and normal lactate. He is requiring oxygen here. X-ray shows an obvious right lower lobe pneumonia. We will start him on IV antibiotics. Patient did receive dialysis yesterday and is scheduled for it again today. I spoke to the hospitalist and will admit at this time. Patient has been stable on the ER. Lab Data: Labs: Lab Results 07/01/20 07/01/20 07/01/20 Range/Units 23:05 23:05 23:05 WBC 18.1 H (4.0-10.0) 10^3/ uL RBC 2.86 L (4.1-5.3) 10^6/u L Hgb 9.4 L (11.7-16.6) g/dL Hct 29.2 L (42.0-52.0) % MCV 102.1 H (80-94) fL MCH 32.9 (28.0-34.0) pg MCHC 32.2 (30.0-36.0) g/dL RDW 17.9 H (12.1-15.1) % Plt Count 98 L (130-400) 10^3/c mm MPV 10.9 H (7.4-10.4) fL Neut % (Auto) 93.1 % Lymph % (Auto) 1.3 % [place] % (Auto) 4.2 % Eos % (Auto) 0.2 % Baso % (Auto) 0.1 % Neut # (Auto) 16.88 H (1.8-7.7) 10^3/u L Lymph # (Auto) 0.2 L (0.8-4.8) 10^3/u L [place] # (Auto) 0.8 (0.2-0.9) 10^3/u L Eos # (Auto) 0.0 (0.0-0.8) 10^3/u L Baso # (Auto) 0.0 (0.0-0.1) 10^3/u L Nucleated RBC % (a uto) 0.2 % Nucleated RBCs # 0.0 /100WBC PT 23.80 H (12.1-14.9) SECO NDS INR 2.04 H (0.8-1.2) Sodium 137 (136-145) mmol/L Potassium 4.4 (3.5-5.1) mmol/L Chloride 96 L (98-107) mmol/L Carbon Dioxide 19 L (22-29) mmol/L Anion Gap 26.4 H (5-19) BUN 99 H* (6-20) mg/dL Creatinine 8.4 H* (0.7-1.2) mg/dL GFR Calculation 6.8 L (90-130) mL/min Glucose 180 H (65-115) mg/dL Calculated Osmolal ity 290 (285-295) mOsm/k g Lactic Acid (0.5-2.2) mmol/L Calcium 7.2 L (8.5-10.5) mg/dL Total Bilirubin 1.4 H (0.15-1.2) mg/dL AST 24 (0-40) U/L ALT 24 (0-41) U/L Alkaline Phosphata se 61 (40-130) IU/L Troponin T Baselin e (0-15) ng/L NT-Pro-B Natriuret Pep 62510 H (0-125) pg/mL Total Protein 5.7 L (6.6-8.7) g/dL Albumin 3.6 (3.5-5.2) g/dL Globulin 2.1 (1.3-4.6) g/dL SARS-CoV-2 Ag (Rap id) (Negative) 07/01/20 07/01/20 07/01/20 Range/Units 23:05 23:05 23:25 WBC (4.0-10.0) 10^3/ uL RBC (4.1-5.3) 10^6/u L Hgb (11.7-16.6) g/dL Hct (42.0-52.0) % MCV (80-94) fL MCH (28.0-34.0) pg MCHC (30.0-36.0) g/dL RDW (12.1-15.1) % Plt Count (130-400) 10^3/c mm MPV (7.4-10.4) fL Neut % (Auto) % Lymph % (Auto) % [place] % (Auto) % Eos % (Auto) % Baso % (Auto) % Neut # (Auto) (1.8-7.7) 10^3/u L Lymph # (Auto) (0.8-4.8) 10^3/u L [place] # (Auto) (0.2-0.9) 10^3/u L Eos # (Auto) (0.0-0.8) 10^3/u L Baso # (Auto) (0.0-0.1) 10^3/u L Nucleated RBC % (a uto) % Nucleated RBCs # /100WBC PT (12.1-14.9) SECO NDS INR (0.8-1.2) Sodium (136-145) mmol/L Potassium (3.5-5.1) mmol/L Chloride (98-107) mmol/L Carbon Dioxide (22-29) mmol/L Anion Gap (5-19) BUN (6-20) mg/dL Creatinine (0.7-1.2) mg/dL GFR Calculation (90-130) mL/min Glucose (65-115) mg/dL Calculated Osmolal ity (285-295) mOsm/k g Lactic Acid 1.4 (0.5-2.2) mmol/L Calcium (8.5-10.5) mg/dL Total Bilirubin (0.15-1.2) mg/dL AST (0-40) U/L ALT (0-41) U/L Alkaline Phosphata se (40-130) IU/L Troponin T Baselin e 202 H* (0-15) ng/L NT-Pro-B Natriuret Pep (0-125) pg/mL Total Protein (6.6-8.7) g/dL Albumin (3.5-5.2) g/dL Globulin (1.3-4.6) g/dL SARS-CoV-2 Ag (Rap id) Negative (Negative) EKG Data^: EKG 1: Attestation: I personally reviewed and interpreted this EKG as follows: EKG Interpretation Date: 07/01/20 EKG interpretation time: 22:55 Interpretation: Sinus tachycardia heart rate [address] or T wave abnormalities QRS 96 QTC 395 Critical Care Time Critical Care Time: Critical Care Time: Yes Total Critical Care Time: 36 Attestation: This case had a high probability of a clinically significant, sudden, or life threatening deterioration of this patient's condition which required my full and direct attention, intervention and personal management. Discharge Plan Discharge Patient Disposition: Admitted As Inpatient Clinical Impression: ESRD (end stage renal disease), Sepsis Pneumonia Qualifiers: Pneumonia type: due to unspecified organism Laterality: right Lung location: lower lobe of lung Qualified Code(s): J18.9 - Pneumonia, unspecified organism Condition: Stable Coding Level of Care Code ED Product Marketing Director for Chg Fwd Exam Comprehensive
[2020-07-01 22:57] VITALS: BP 153/95; PULSE 115; RESP 20; TEMP 37.1; O2SAT 93
[2020-07-01 23:27] LABS: Basophils % 0.1 %; Eosinophils % 0.2 %; Hematocrit 29.2 % (42.0-52.0); Hemoglobin 9.4 g/dL (11.7-16.6); Lymphocytes # 0.2 10^3/uL (0.8-4.8); Lymphocytes % 1.3 %; Mean Corpuscular HGB Conc 32.2 g/dL (30.0-36.0); Mean Corpuscular Hemoglobin 32.9 pg (28.0-34.0); Mean Corpuscular Volume 102.1 fL (80-94); Mean Platelet Volume 10.9 fL (7.4-10.4); Monocytes # 0.8 10^3/uL (0.2-0.9); Monocytes % 4.2 %; Neutrophils # 16.88 10^3/uL (1.8-7.7); Neutrophils % 93.1 %; Nucleated Red Blood Cells % 0.2 %; Platelet Count 98 10^3/cmm (130-400); Red Blood Count 2.86 10^6/uL (4.1-5.3); Red Cell Distribution Width 17.9 % (12.1-15.1); White Blood Count 18.1 10^3/uL (4.0-10.0)
[2020-07-01 23:37] LABS: INR 2.04 (0.8-1.2)
[2020-07-01 23:43] VITALS: BP 165/99; PULSE 105; RESP 18; O2SAT 91
[2020-07-01 23:47] LABS: Lactic Sepsis W/Reflex 1.4 mmol/L (0.5-2.2)
[2020-07-01 23:57] LABS: SARS Covid-2 Antigen Negative (Negative)
[2020-07-01 23:57] LABS: Troponin(5th) Baseline 202 ng/L (0-15)
[2020-07-01 23:58] LABS: Alanine Aminotransferase 24 U/L (0-41); Albumin Level 3.6 g/dL (3.5-5.2); Alkaline Phosphatase 61 IU/L (40-130); Calcium 7.2 mg/dL (8.5-10.5); Carbon Dioxide 19 mmol/L (22-29); Chloride 96 mmol/L (98-107); Globulin 2.1 g/dL (1.3-4.6); Glomerular Filtration Rate 6.8 mL/min (90-130); Glucose 180 mg/dL (65-115); Osmolality Calculated 290 mOsm/kg (285-295); Sodium 137 mmol/L (136-145); Total Bilirubin 1.4 mg/dL (0.15-1.2); Total Protein 5.7 g/dL (6.6-8.7)
[2020-07-02] VITALS (156 sets, daily range): BP systolic 118–156; BP diastolic 73–95; PULSE 55–99; RESP 11–29; TEMP 36.6–36.7; O2SAT 87–99
[2020-07-02 00:01] LABS: Anion Gap 26.4 (5-19); Aspartate Amino Transferase 24 U/L (0-40); Potassium 4.4 mmol/L (3.5-5.1)
[2020-07-02 00:02] LABS: Blood Urea Nitrogen 99 mg/dL (6-20)
--- NOTE | 2020-07-02 00:48 | ECG_ITS ---
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 Measurements Intervals [place] Rate: 99 P: 46 [place]: 146 QRS: 10 QRSD: 98 T: 170 QT: 361 QTc: 464 Interpretive Statements SINUS RHYTHM POSSIBLE LEFT ATRIAL ENLARGEMENT [-0.1mV P WAVE IN V1/V2] LEFT VENTRICULAR HYPERTROPHY AND ST-T CHANGE [VOLTAGE CRITERIA PLUS ST/T ABNORMALITY] Compared to ECG 07/01/2020 22:55:42 Sinus tachycardia no longer present ST (T wave) deviation still present Electronically Signed On 07-02-2020 20:03:54 CDT by Isauro Landis M.D. [id number]
[2020-07-02] MEDS: vancomycin 1,000 MG in sodium chloride 0.9% 250 ML 250 MG IV ×3 (01:02→11:49)
--- NOTE | 2020-07-02 01:22 | P.HP_ITS ---
Providers/Chief Complaint Admitting Physician: Domitila Aburto MD Primary Care Provider: Michael Eubanks DO Chief Complaint: been spitting blood all day / trouble breath History of Present Illness Marlon Dorantes is a 50 year old male with PMHx noted below presents with complaints of coughing up blood particularly over the past 1 to 2 days, ongoing and progressive shortness of breath even at rest to the point where he has to consistently use his oxygen, and ongoing generalized swelling. He is ill- appearing and fatigued during my encounter in the ER, currently on 3 L nasal cannula. He has quite a complex history including pulmonary hypertension, hemochromatosis, idiopathic pulmonary hemosiderosis, end-stage renal disease on hemodialysis on Tuesday, Tuesday, Tuesday, Tuesday, recent diagnosis of right upper extremity DVT and on anticoagulation with Coumadin. Last dose was taken earlier late yesterday. He reports having had some degree of hemoptysis for approximately 2 years and has been on chronic steroids for this. However over the past 1 to 2 days he has had significant productive cough with increasing hemoptysis. He follows up with Dr. Macias as an outpatient. Was previously on oxygen only as needed but due to ongoing shortness of breath has been using it pretty much all the time. He states that he has an extra day of dialysis due to continued generalized swelling but has not noticed much in the way of improvement. He denies any fevers but has had chills, has been quite fatigued spending much of the past 1 to 2 days sleeping. Denies any contact with known COVID-19 individuals. Has tried to be careful with the ongoing pandemic knowing that he is immunocompromised in terms of contact with outside persons. Over the past 24 hours he has had some chest pain as well. He does make some urine at baseline despite being on dialysis. Work-up so far indicates a white count of 18.1 with neutrophilic predominance, hemoglobin of 9.4, platelet count of 98, BUN of 99, creatinine of 8.4, and anion gap of 26.4, blood glucose of 180, INR of 2.04, lactic acid of 1.4, rapid COVID screen is negative, chest x-ray is pending report, normal LFTs. He is currently afebrile but reports having had a temperature of 101F at home. He is likely hypertensive, has been tachycardic and tachypneic. Is receiving a dose of vancomycin and Zosyn. Due to concern for ongoing hemoptysis, generally been quite ill-appearing, need for close monitoring of hemodynamic and respiratory status will be admitted to ICU for further care. Review of Systems Const: Reports: chills, change in appetite (decreased appetite) and fatigue; Denies: fever(s) Eyes: Denies: change in vision ENMT: Reports: dry mouth Card: Reports: chest pain, swelling of feet/ankles, dyspnea on exertion and orthopnea; Denies: lightheadedness Resp: Reports: dyspnea and hemoptysis GI: Denies: abdominal pain, nausea, vomiting, hematemesis or hematochezia : Denies: dysuria or hematuria Musc: Denies: back pain Skin/Breast: Denies: rash Neuro: Reports: weakness in extremities and difficulty walking (due to SOB); Denies: numbness in extremities Psych: Denies: anxiety Medications/Allergies Home Medications Medication Instructions Recorded Confirmed Last Taken Type amlodipine 10 mg tablet 10 mg PO BEDTIME 10/31/19 05/24/20 05/23/20 History aspirin 81 mg tablet,delayed 81 mg PO DAILY 10/31/19 05/24/20 05/23/20 History release furosemide 20 mg tablet 60 mg PO QAM tab 10/31/19 05/24/20 05/23/20 History nitroglycerin 0.4 mg sublingual 0.4 mg SUBLINGUAL Q5M PRN 10/31/19 05/24/20 Unknown History tablet metoprolol tartrate 50 mg tablet 50 mg PO DAILY tab 11/09/19 05/24/20 05/23/20 History clonidine HCl 0.1 mg PO DAILY PRN 01/01/20 05/24/20 Unknown History losartan 25 mg tablet 25 mg PO DAILY #90 tab 02/01/20 05/24/20 03/01/20 Rx RenaPlex-D See Rx Instructions .ROUTE .COMPLEX 02/28/20 05/24/20 04/09/20 History sildenafil 50 mg PO PRN PRN 02/28/20 05/24/20 Unknown History oxycodone-acetaminophen 5 mg-325 1 tab PO Q6H PRN 7 Days #28 tab 03/20/20 05/24/20 04/09/20 Rx mg tablet promethazine 12.5 mg tablet 12.5 mg PO Q6H PRN 04/29/20 05/24/20 05/23/20 History Heparin Injection See Rx Instructions .ROUTE .COMPLEX 05/24/20 05/24/20 Unknown History calcitriol See Rx Instructions .ROUTE .COMPLEX 05/24/20 05/24/20 Unknown History clonazepam See Rx Instructions .ROUTE .COMPLEX 05/24/20 05/24/20 Unknown History gabapentin 100 mg PO BID 05/24/20 05/24/20 05/23/20 History lidocaine-prilocaine See Rx Instructions .ROUTE .COMPLEX 05/24/20 05/24/20 Unknown History pantoprazole 40 mg PO QAM 05/24/20 05/24/20 05/23/20 History naloxone 2 mg/actuation nasal spray 2 mg INTRANASAL PRN 06/10/20 Unknown History prednisone 20 mg tablet 20 mg PO BID tab 06/10/20 Unknown History warfarin 5 mg tablet 5 mg PO DAILY 06/10/20 Unknown History Allergies Allergy/AdvReac Type Severity Reaction Status Date / Time azithromycin Allergy ADR-Chest Verified 06/10/20 11:13 Pain carvedilol AdvReac ADR-Dizzine Verified 06/10/20 11:13 ss PFSH Acute PFSH: Medical History Atherosclerotic heart disease of [place] coronary artery without angina pectoris Benign essential hypertension Cardiomyopathy CHF NYHA class III (symptoms with mildly strenuous activities) COPD (chronic obstructive pulmonary disease) Diabetes mellitus Dyslipidemia ESRD (end stage renal disease) Fistula Left Wrist Headache Hemoptysis Hemoptysis Idiopathic pulmonary hemosiderosis Mixed hyperlipidemia Nicotine dependence, cigarettes, uncomplicated Non-ST elevation (NSTEMI) myocardial infarction Pulmonary hypertension Right-sided chest pain Surgical History H/O elbow surgery H/O hand surgery H/O neck surgery History of back surgery History of intravascular stent placement History of thoracotomy Family History Grandmother , In her 50's Myocardial infarction Father Diabetes Mother Diabetes Social History Smoking and tobacco status: former smoker Quit status (tobacco): has quit using tobacco Year quit tobacco: 1999 - 2PPD x 20 Years Alcohol intake: current Alcohol intake frequency: holidays/special occasions only Lives independently: Yes Household members: spouse Marital status: Current occupational status: disabled History of recent travel: No Current gender identity: Male Vitals/I&O/Wt Last Vital Signs Temp 98.8 F 07/01/20 22:57 Pulse 105 H 07/01/20 23:43 Resp 18 07/01/20 23:43 BP 165/99 07/01/20 23:43 Pulse Ox 91 07/01/20 23:43 Weight last 48 hrs Weight 90.718 kg Physical Exam Const: COMMON NORMALS: no acute distress, patient oriented x3 and alert GENERAL APPEARANCE: cooperative, comfortable, ill appearing, appears older than stated age and Edematous ORIENTATION/CONSCIOUSNESS: Yes awake OTHER: - appears quite fatigued HENMT: COMMON NORMALS: normocephalic, atraumatic and hearing grossly normal bilaterally HEAD & SCALP: normocephalic and atraumatic MOUTH: moist mucous membranes abnormal Details: parched Eye: COMMON NORMALS: Equal, round and reactive pupils present, EOMs intact bilaterally and conjunctivae normal CONJUNCTIVA: Yes conjunctivae normal PUPIL: Yes Equal, round and reactive pupils present Neck/C-Spine: COMMON NORMALS: full ROM GENERAL: Yes normal visual inspection and Yes trachea midline Resp: COMMON NORMALS: normal respiratory effort, No retractions, No use of accessory muscles and clear to auscultation bilaterally EFFORT & INSPECTION: Yes able to speak in complete sentences, Yes symmetric chest movement and No tachypneic AUSCULTATION: rhonchi right upper OTHER: -on 3 L NC -diminished breath sounds bilaterally Cardio: COMMON NORMALS: regular rate, regular rhythm, S1 normal heart sound present, S2 normal heart sound present and No murmurs present (Cardio) RATE: tachycardic RHYTHM: regular rhythm HEART SOUNDS: S1 normal heart sound present and S2 normal heart sound present GI: COMMON NORMALS: Soft to palpation and non-tender INSPECTION: Yes Abdominal wall edema Laterality: bilateral and Yes abdominal distension PALPATION: Yes Soft to palpation, Yes Tenderness to palpation present (GI) (diffusely), No Guarding due to palpation present (GI) and No Rigid due to palpation Extremity: NARRATIVE EXTREMITY EXAM: -3-4+ pitting edema of bilateral LEs GENERAL: Yes edema (diffuse) and Yes vascular access (AV fistula on L) Neuro: COMMON NORMALS: patient oriented x3, moves all extremities, no focal motor deficits and no sensory deficits noted Psych: COMMON NORMALS: mental status grossly normal, Normal thought process present, cooperative, normal affect and speech normal SPEECH: Yes normal speech THOUGHT PROCESS: Normal thought process present Skin: COMMON NORMALS: no rashes or lesions noted, no jaundice, no petechiae and no mottling GENERAL SKIN EXAM: no rashes or lesions noted Sepsis: Is patient septic: Yes Focused sepsis exam performed: Yes Date exam was performed: 07/02/20 Time exam was performed: 01:00 Data : 07/01/20 23:05 07/01/20 23:05 Micro: Microbiology 07/01/20 23:08 Blood Culture - Preliminary Blood SPECIMEN COLLECTED 07/01/20 23:05 Blood Culture - Preliminary Blood SPECIMEN COLLECTED A&P Assessment and plan (1) Hemoptysis: -has been ongoing x 2 yrs per patient, increased particularly over the past 1-2 days -has known idiopathic pulmonary hemosiderosis and follows up with Dr. Macias -has been on chronic steroids, continue this -close monitoring of H/H -hold AC, has been on Coumadin due to recent RUE DVT -CXR report pending, CT chest ordered as well -close monitoring of respiratory status, supplemental oxygen as needed Status: Acute (2) Pneumonia: -noted evidence of pneumonia on CXR, f/u report -CT chest ordered -Received a dose of vancomycin and Zosyn, continue these for now -Noted leukocytosis with a white count of 18.1 with neutrophilic predominance, lactic acid of 1.4, check procalcitonin -With associated sepsis as evidenced by leukocytosis, tachypnea, fever, hypoxia. No IVF secondary to anasarca and underlying CHF -f/u blood and sputum cx Status: Acute Qualifiers: Laterality: right Lung location: lower lobe of lung Pneumonia type: due to unspecified organism Qualified Code(s): J18.9 - Pneumonia, unspecified organism (3) ESRD (end stage renal disease): -on HD on S, M, W, F -Nephrology consulted -access is AV fistula on LUE Status: Chronic (4) DVT (deep venous thrombosis): -has been on AC with coumadin, hold this due to ongoing hemoptysis Status: Acute Qualifiers: DVT location: upper extremity Affected thrombotic vein of extremity: unspecified vein of extremity Chronicity: acute Laterality: right Qualified Code(s): I82.621 - Acute embolism and thrombosis of deep veins of right upper extremity (5) Hemochromatosis: -follows up in [place] Status: Chronic Qualifiers: Hemochromatosis type: unspecified Qualified Code(s): E83.119 - Hemochromatosis, unspecified (6) Idiopathic pulmonary hemosiderosis: -Has been following up with Dr. Macias and being on steroid therapy -Now with noted increased hemoptysis Status: Chronic (7) COPD (chronic obstructive pulmonary disease): -Previously on supplemental oxygen as needed though has been using it much more consistently lately -Supplemental oxygen as needed, home oxygen evaluation prior to discharge if continued supplementation needed -On steroids, antibiotics secondary to pneumonia -check ABG Status: Chronic Qualifiers: COPD type: unspecified COPD Qualified Code(s): J44.9 - Chronic obstructive pulmonary disease, unspecified (8) Benign essential hypertension: -hypertensive in ED, continue to monitor vital signs -resume oral antihypertensives Status: Chronic (9) Diabetes mellitus: -check A1c -accuchecks, ISS, hypoglycemia precautions Status: Chronic Qualifiers: Diabetes mellitus type: type 2 Diabetes mellitus [employer] insulin use: without senior care use Diabetes mellitus complication status: with kidney complications Diabetes mellitus complication detail: with chronic kidney disease Chronic kidney disease stage: on chronic dialysis Qualified Code(s): E11.22 - Type 2 diabetes mellitus with diabetic chronic kidney disease; N18.6 - End stage renal disease; Z99.2 - Dependence on renal dialysis (10) CHF NYHA class III (symptoms with mildly strenuous activities): -Echo (09/2019): EF=30%, G2DD, mild pulmonary HTN (33), moderate biatrial enlargement, mild MR, mild TR -clinically has anasarca, [id number] -does make some urine at baseline, resume oral diuretics -may need additional dialysis Status: Acute Qualifiers: Congestive heart failure type: combined Congestive heart failure chronicity: acute on chronic Qualified Code(s): I50.43 - Acute on chronic combined systolic (congestive) and diastolic (congestive) heart failure Additional A&P Information -hx of pulmonary HTN -NSTEMI; elevated troponins in background of ESRD, likely type II given acute infection -increased anion gap: chronic -chronic intermittent thrombocytopenia; monitor platelet count -hypocalcemia, Ca-7.5 -CLD for now -GI ppx with PPI -DVT ppx with SCDs, no AC due to anemia and hemoptysis -Dispo: home -Code status: FULL code -ICU admission secondary to high risk for decompensation, need for close monitoring of respiratory status with ongoing hemoptysis Attestations Medical Necessity Statement*: Marlon Dorantes's hospital stay will require greater than 2 midnights for treatment of pneumonia, management of hemoptysis, anasarca, end-stage renal disease on chronic hemodialysis. Time Spent in Patient Care: Greater than 35 minutes (>than 50% of time spent in counselling and/or direct pt care on unit) . 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 Diagnoses Hemoptysis R04.2 Pneumonia J18.9 Laterality: right Lung location: lower lobe of lung Pneumonia type: due to unspecified organism ESRD (end stage renal disease) N18.6 DVT (deep venous thrombosis) I82.621 DVT location: upper extremity Affected thrombotic vein of extremity: unspecified vein of extremity Chronicity: acute Laterality: right Hemochromatosis E83.119 Hemochromatosis type: unspecified Idiopathic pulmonary hemosiderosis J84.03 COPD (chronic obstructive pulmonary disease) J44.9 COPD type: unspecified COPD Benign essential hypertension I10 Diabetes mellitus E11.22; N18.6; Z99.2 Diabetes mellitus type: type 2 Diabetes mellitus [employer] insulin use: without [employer] use Diabetes mellitus complication status: with kidney complications Diabetes mellitus complication detail: with chronic kidney disease Chronic kidney disease stage: on chronic dialysis CHF NYHA class III (symptoms with mildly strenuous activities) I50.43 Congestive heart failure type: combined Congestive heart failure chronicity: acute on chronic Sepsis Event Note Evaluation Current stage of sepsis: sepsis Possible source: pulmonary Focused Exam Vital Signs Temp Pulse Pulse Resp BP BP Pulse Ox 07/02/20 02:00 99 24 H 143/92 90 07/01/20 23:43 105 H 18 165/99 91 07/01/20 22:57 98.8 F 115 H 20 H 153/95 93 07/01/20 22:32 100.9 F H 113 H 18 140/85 82 L Respiratory exam: Present decreased breath sounds and rhonchi Cardiovascular exam: Present tachycardia Date exam was performed: 07/02/20 Time exam was performed: 02:20 Problem List (1) Hemoptysis: Status: Acute (2) Pneumonia: Status: Acute (3) ESRD (end stage renal disease): Status: Chronic (4) DVT (deep venous thrombosis): Status: Acute (5) Hemochromatosis: Status: Chronic (6) Idiopathic pulmonary hemosiderosis: Status: Chronic (7) COPD (chronic obstructive pulmonary disease): Status: Chronic (8) Benign essential hypertension: Status: Chronic (9) Diabetes mellitus: Status: Chronic
[2020-07-02 01:28] LABS: Troponin 5 2HR 212.1 ng/L (0-15)
[2020-07-02 01:29] LABS: Troponin 5 2HR Delta 10.1 ABS# (0-10)
[2020-07-02] MEDS: piperacillin-tazobactam 2.25 GM in sodium chloride 0.9% (plus) 50 ML IV (02:11)
--- NOTE | 2020-07-02 02:40 | CT_ITS ---
WS: [id number] CT CHEST TECHNIQUE: Noncontrast CT of the chest with coronal and sagittal reformatted images. CLINICAL INFORMATION: abnormal CXR, ongoing hemoptysis COMPARISON: CT DLP: 958.[address] scans at [facility] use at least one of these dose optimization techniques: automat ed exposure control; mA and/or kV adjustment per patient size (includes targeted exams where dose is matched to clinical indication); or iterative reconstruction. FINDINGS: Moderate left pleural effusion. Compressive atelectasis in the left lower lobe. Right pleural effusio n has improved from previous. Small right pleural effusion. Calcified granuloma left upper lobe. Hazy groundglass airspace infiltrates in the right upper lobe and right lower lobe. More focal consolidat ion right lower lobe measuring 3.5 x 2.7 CM. Nodular pleural thickening right lower lobe. Evidence of postoperative changes within the right middle lobe with parenchymal fibrosis. This appears new since the prior CT. Coronary calcification. Aortic calcification. No axillary lymphadenopathy. Tiny pericardial effusion. Normal thyroid gland. Prominent peribronchial lymph nodes likely reactive. Adrenal glands are normal. Renal cortical atrophy. Hypertrophic changes thoracic spine. CT/CT chest wo con [id number] IMPRESSION: 1. Small to moderate left pleural effusion with compressive atelectasis in the left lower lobe. Pleural effusions have improved since . Tiny right p leural effusion. 2. Wedge-shaped consolidative opacity right lower lobe measuring 2.7 x 3.5 cm. Recommend follow-up to resolution. 3. Diffuse hazy groundglass infiltrates throughout the right lung suspicious f or pneumonia. 4. Postoperative changes right middle lobe appears new from previous. 5. Vascular calcification including coronary. 6. A few prominent peribronchial lymph nodes likely reactive. 7. Diffuse body wall anasarca.
--- NOTE | 2020-07-02 02:42 | P.CONIM_ITS ---
Providers/Reason For Consult Consulting Physican/Specialty*: marilyn germain md/ telenephrology Reason for Consult*: ESRD care Attending Physician: Domitila Aburto MD Primary Care Provider: Michael Eubanks DO History of Present Illness History of Present Illness Marlon Dorantes is a 50 year old male h/o ESRD, hemochromatosis, Idiopathic Pulmonary hemosiderosis. Pt on home oxygen, home HD 4 x/ week w/ EDW of 77 kgm. recent RUE DVT on coumadin. Pt is here w/ sob, hemoptysis, volume overload. in er found to have wbc of 18- started on zosyn and vncomycin. renal called for ESRD care. Review of Systems General: Reports: 10 or more systems reviewed and unremarkable except in HPI and below Narrative: weak, sob, hemoptysis, orthopnea, swollen, arm pain, headaches. Meds/Allergies Home Medications and Allergies Home Medications Medication Instructions Recorded Confirmed Last Taken Type amlodipine 10 mg tablet 10 mg PO BEDTIME 10/31/19 05/24/20 05/23/20 History aspirin 81 mg tablet,delayed 81 mg PO DAILY 10/31/19 05/24/20 05/23/20 History release furosemide 20 mg tablet 60 mg PO QAM tab 10/31/19 05/24/20 05/23/20 History nitroglycerin 0.4 mg sublingual 0.4 mg SUBLINGUAL Q5M PRN 10/31/19 05/24/20 Unknown History tablet metoprolol tartrate 50 mg tablet 50 mg PO DAILY tab 11/09/19 05/24/20 05/23/20 History clonidine HCl 0.1 mg PO DAILY PRN 01/01/20 05/24/20 Unknown History losartan 25 mg tablet 25 mg PO DAILY #90 tab 02/01/20 05/24/20 03/01/20 Rx RenaPlex-D See Rx Instructions .ROUTE .COMPLEX 02/28/20 05/24/20 04/09/20 History sildenafil 50 mg PO PRN PRN 02/28/20 05/24/20 Unknown History oxycodone-acetaminophen 5 mg-325 1 tab PO Q6H PRN 7 Days #28 tab 03/20/20 05/24/20 04/09/20 Rx mg tablet promethazine 12.5 mg tablet 12.5 mg PO Q6H PRN 04/29/20 05/24/20 05/23/20 History Heparin Injection See Rx Instructions .ROUTE .COMPLEX 05/24/20 05/24/20 Unknown History calcitriol See Rx Instructions .ROUTE .COMPLEX 05/24/20 05/24/20 Unknown History clonazepam See Rx Instructions .ROUTE .COMPLEX 05/24/20 05/24/20 Unknown History gabapentin 100 mg PO BID 05/24/20 05/24/20 05/23/20 History lidocaine-prilocaine See Rx Instructions .ROUTE .COMPLEX 05/24/20 05/24/20 Unknown History pantoprazole 40 mg PO QAM 05/24/20 05/24/20 05/23/20 History naloxone 2 mg/actuation nasal spray 2 mg INTRANASAL PRN 06/10/20 Unknown History prednisone 20 mg tablet 20 mg PO BID tab 06/10/20 Unknown History warfarin 5 mg tablet 5 mg PO DAILY 06/10/20 Unknown History Allergies Allergy/AdvReac Type Severity Reaction Status Date / Time azithromycin Allergy ADR-Chest Verified 06/10/20 11:13 Pain carvedilol AdvReac ADR-Dizzine Verified 06/10/20 11:13 ss PFSH Acute PFSH: Medical History (Updated 07/02/20 @ 02:13 by Domitila Aburto MD) Atherosclerotic heart disease of [place] coronary artery without angina pectoris Benign essential hypertension Cardiomyopathy CHF NYHA class III (symptoms with mildly strenuous activities) COPD (chronic obstructive pulmonary disease) Diabetes mellitus Dyslipidemia ESRD (end stage renal disease) Fistula Left Wrist Headache Hemoptysis Hemoptysis Idiopathic pulmonary hemosiderosis Mixed hyperlipidemia Nicotine dependence, cigarettes, uncomplicated Non-ST elevation (NSTEMI) myocardial infarction Pulmonary hypertension Right-sided chest pain Surgical History H/O elbow surgery H/O hand surgery H/O neck surgery History of back surgery History of intravascular stent placement History of thoracotomy Family History Grandmother , In her 50's Myocardial infarction Father Diabetes Mother Diabetes Social History Smoking and tobacco status: former smoker Quit status (tobacco): has quit using tobacco Year quit tobacco: 1999 - 2PPD x 20 Years Alcohol intake: current Alcohol intake frequency: holidays/special occasions only Lives independently: Yes Household members: spouse Marital status: Current occupational status: disabled History of recent travel: No Current gender identity: Male Vitals/I&O/Wt Last Vital Signs Temp 98.8 F 07/01/20 22:57 Pulse 99 07/02/20 02:00 Resp 24 H 07/02/20 02:00 BP 143/92 07/02/20 02:00 Pulse Ox 90 07/02/20 02:00 Weight last 48 hrs Weight 90.718 kg Physical Exam Narrative: EXAM NARRATIVE: vs noted- hypoxic uncomfortable heent- nc/t, eomi, anicteric neck supple, trach hole lungs b/l ronchi heart reg, +ROCAEL abd soft, nt, nd ext b/l 2+ edema LUE AVF w/ thrill and bruit neuro- a,a,ox 3 Data Micro: Micro: Microbiology 07/01/20 23:08 Blood Culture - Pr eliminary Blood SPECIMEN [facility] 07/01/20 23:05 Blood Culture - Pr eliminary Blood SPECIMEN [facility] A&P Additional A&P Information 50 yr old man 1. idiopathic pulm hemosiderosis- steroids per pulm- consider bolus 2, Q pna per pulm 3. sob/ esrd/ htn- bipap. -emergent hd- 4 hrs, 3 k, remove 3 + liters -may need extra HD 4. h/o CAd and 2 stents 5. 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
[2020-07-02] MEDS: FUROsemide 10 mg/mL SDV 10mL 80 MG IVP (03:14)
[2020-07-02] MEDS: oxyCODONE-APAP 5-325 mg Tablet 1 TAB PO ×3 (03:15→19:21)
[2020-07-02 03:33] LABS: ABG PCO2 32.4 mmHg (35-45); ABG PH Result 7.44 (7.35-7.45); Arterial Blood Gas Hematocrit 29.8 % (42-52); Base Excess ABG -1.7 mmol/L (-2.0-2.0); Blood Gas Sample Site Brachial, right; Blood Gas Sample Type Arterial; Oxygen Device BIPAP
[2020-07-02 03:59] LABS: Glucose Point of Care 208 mg/dL (70-110)
--- NOTE | 2020-07-02 04:48 | ECG_ITS ---
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 Measurements Intervals [place] Rate: 78 P: 48 [place]: 145 QRS: 26 QRSD: 102 T: 184 QT: 411 QTc: 468 Interpretive Statements SINUS RHYTHM POSSIBLE LEFT ATRIAL ENLARGEMENT [-0.1mV P WAVE IN V1/V2] LEFT VENTRICULAR HYPERTROPHY AND ST-T CHANGE [VOLTAGE CRITERIA PLUS ST/T ABNORMALITY] Compared to ECG 07/02/2020 00:46:02 No significant changes Electronically Signed On 07-02-2020 20:04:46 CDT by Isauro Landis M.D. [email or web address]
[2020-07-02 05:42] LABS: Basophils % 0.1 %; Hematocrit 27.8 % (42.0-52.0); Hemoglobin 9.1 g/dL (11.7-16.6); Lymphocytes # 0.5 10^3/uL (0.8-4.8); Lymphocytes % 2.9 %; Mean Corpuscular HGB Conc 32.7 g/dL (30.0-36.0); Mean Corpuscular Hemoglobin 33.1 pg (28.0-34.0); Mean Corpuscular Volume 101.1 fL (80-94); Mean Platelet Volume 11.7 fL (7.4-10.4); Monocytes # 0.3 10^3/uL (0.2-0.9); Monocytes % 2.1 %; Neutrophils # 14.67 10^3/uL (1.8-7.7); Nucleated Red Blood Cells % 0 %; Platelet Count 82 10^3/cmm (130-400); Red Blood Count 2.75 10^6/uL (4.1-5.3); Red Cell Distribution Width 17.8 % (12.1-15.1); White Blood Count 15.6 10^3/uL (4.0-10.0)
[2020-07-02 05:59] LABS: Anion Gap 23.4 (5-19); Calcium 6.9 mg/dL (8.5-10.5); Carbon Dioxide 22 mmol/L (22-29); Chloride 95 mmol/L (98-107); Glomerular Filtration Rate 8.4 mL/min (90-130); Glucose 186 mg/dL (65-115); Osmolality Calculated 288 mOsm/kg (285-295); Potassium 4.4 mmol/L (3.5-5.1); Sodium 136 mmol/L (136-145)
[2020-07-02 06:02] LABS: Blood Urea Nitrogen 98 mg/dL (6-20)
[2020-07-02] MEDS: FUROsemide 20 mg Tablet 60 MG PO (06:06)
[2020-07-02] MEDS: pantoprazole DR 40 mg Tablet PO (06:06)
[2020-07-02 06:10] LABS: Troponin 5 6HR 247.5 ng/L (0-15); Troponin 5 6HR Delta 45.5 ng/L (0-12)
[2020-07-02 06:17] LABS: Estmated Average Glucose 123; Hemoglobin A1C 5.9 % (4.0-6.0)
[2020-07-02 06:20] LABS: Ferritin 584 ng/mL (30-400); Iron 20 ug/dL (59-158); Percent Saturation 9.6 % (20-50); Total Iron Binding Capacity 207 mcg/dl; Unsaturated Iron Binding 187 ug/dL (112-347)
[2020-07-02 06:37] LABS: Hepatitis B Surface Antigen Non-Reactive (Nonreactive); Hepatitis C Virus Antibody Non-Reactive (Nonreactive)
[2020-07-02 06:58] LABS: Hepatitis B Surface AB 8.2 (0-8.5); Parathyroid Hormone 320.4 pg/mL (15-65)
[2020-07-02] MEDS: losartan 50 mg Tablet 25 MG PO (09:14)
[2020-07-02] MEDS: predniSONE 20 mg Tablet PO ×2 (09:14→17:40)
[2020-07-02] MEDS: metoprolol tartrate 50 mg Tablet PO (09:14)
[2020-07-02 12:48] LABS: Glucose Point of Care 219 mg/dL (70-110)
[2020-07-02] MEDS: piperacillin-tazobactam 3.375 GM in sodium chloride 0.9% (plus) 50 ML IV (13:35)
--- NOTE | 2020-07-02 17:02 | ECG_ITS ---
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 Measurements Intervals Freedom Rate: 64 P: 27 MT: 165 QRS: 2 QRSD: 100 T: 156 QT: 460 QTc: 476 Interpretive Statements SINUS RHYTHM POSSIBLE LEFT ATRIAL ENLARGEMENT [-0.1mV P WAVE IN V1/V2] LEFT VENTRICULAR HYPERTROPHY AND ST-T CHANGE [VOLTAGE CRITERIA PLUS ST/T ABNORMALITY] Compared to ECG 07/02/2020 05:22:40 No significant changes Electronically Signed On 07-02-2020 20:10:33 CDT by Isauro Landis M.D. [id number]
[2020-07-02 17:17] LABS: Glucose Point of Care 153 mg/dL (70-110)
--- NOTE | 2020-07-02 17:25 | P.PN_ITS ---
Subjective Subjective: Interval history: History and physical reviewed. Patient reports he feels better than on admission. Still short of breath. Had some chest discomfort this afternoon. Awaiting EKG. Medications: Reviewed: Yes Vitals/I&O/Wt Last Vital Signs Temp 97.8 F 07/02/20 11:20 Pulse 63 07/02/20 14:52 Resp 16 07/02/20 14:52 BP 125/80 07/02/20 13:40 Pulse Ox 97 07/02/20 14:52 07/02/20 07/02/20 07/02/20 06:59 14:59 22:59 Intake Total 450 / 450 290 / 290 Balance 450 / 450 290 / 290 Weight last 48 hrs Weight 103.51 kg Weight 90.718 kg Physical Exam Narrative: EXAM NARRATIVE: General exam is no apparent distress Cardiovascular regular rate and rhythm, no murmur Lungs clear but with diminished breath sounds bilaterally Abdomen is soft nontender with positive bowel sounds Extremities 2+ edema lower extremities Data : 07/02/20 05:00 07/02/20 05:00 Micro: Microbiology 07/01/20 23:08 Blood Culture - Preliminary Blood SPECIMEN COLLECTED 07/01/20 23:05 Blood Culture - Preliminary Blood SPECIMEN COLLECTED A&P Assessment and plan (1) Hemoptysis: Patient reports this is been longstanding but worse the last 1 to 2 days. Etiology may be superimposed infection, CHF secondary to fluid overload, Coumadin treatment. 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 BiPAP and supplemental oxygen as needed. Status: Acute (2) Pneumonia: Await CT of chest Continue Zosyn currently Check MRSA PCR Patient with sepsis on admission Follow-up Await blood and sputum cultures. CT scan demonstrates right lower lobe consolidative pneumonia, small to moderate left pleural effusion Status: Acute Qualifiers: Laterality: right Lung location: lower lobe of lung Pneumonia type: due to unspecified organism Qualified Code(s): J18.9 - Pneumonia, unspecified organism (3) ESRD (end stage renal disease): Nephrology consulted Appreciate help with diuresis in this patient with significant fluid overload. Status: Chronic (4) DVT (deep venous thrombosis): Holding anticoagulation currently secondary to hemoptysis. Patient with history of upper extremity DVT. Status: Acute Qualifiers: DVT location: upper extremity Affected thrombotic vein of extremity: unspecified vein of extremity Chronicity: acute Laterality: right Qualified Code(s): I82.621 - Acute embolism and thrombosis of deep veins of right upper extremity (5) Hemochromatosis: Status: Chronic Qualifiers: Hemochromatosis type: unspecified Qualified Code(s): E83.119 - Hemochr omatosis, unspecified (6) Idiopathic pulmonary hemosiderosis: Followed by pulmonary, on chronic steroids. Continuing steroids currently. Status: Chronic (7) COPD (chronic obstructive pulmonary disease): Continue oxygen. He relates he is typically on approximately 2 L. 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43 - Acute on chronic combined systolic (congestive) and diastolic (congestive) heart failure Additional A&P Information Elevated troponin. Likely type II, however delta was 45 patient had not had any diuresis for his heart failure. Will repeat troponin now to see if trend is downward as expected. History of coronary artery disease and stenting SCDs for DVT prophylaxis Full code Attestations Medical Necessity Statement*: Needs continued hospitalization for IV antibiotics related to pneumonia. Critical Care Time: 34 minutes spent in critical care time in this patient at bedside with hemoptysis, requiring BiPAP with respiratory failure, fluid overload requiring dialysis ongoing chest discomfort and anticoagulation from DVT. Significant risk for decompensation morbidity and mortality. 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 Hemoptysis R04.2 Pneumonia J18.9 Laterality: right Lung location: lower lobe of lung Pneumonia type: due to unspecified organism ESRD (end stage renal disease) N18.6 DVT (deep venous thrombosis) I82.621 DVT location: upper extremity Affected thrombotic vein of extremity: unspecified vein of extremity Chronicity: acute Laterality: right Hemochromatosis E83.119 Hemochromatosis type: unspecified Idiopathic pulmonary hemosiderosis J84.03 COPD (chronic obstructive pulmonary disease) J44.9 COPD type: unspecified COPD Benign essential hypertension I10 Diabetes mellitus E11.22; N18.6; Z99.2 Diabetes mellitus type: type 2 Diabetes mellitus intermediate insulin use: without intermediate use Diabetes mellitus complication status: with kidney complications Diabetes mellitus complication detail: with chronic kidney disease Chronic kidney disease stage: on chronic dialysis CHF NYHA class III (symptoms with mildly strenuous activities) I50.43 Congestive heart failure type: combined Congestive heart failure chronicity: acute on chronic
[2020-07-02 18:27] LABS: Troponin T (5th) Once 245 ng/L (0-15)
--- NOTE | 2020-07-02 19:16 | PC.NURSE ---
monitor didnt save blood pressures today. monitor worked on and for some reason b/p,s lost.
[2020-07-02] MEDS: amlodipine 10 mg Tablet PO (20:24)
[2020-07-02 20:46] LABS: Glucose Point of Care 272 mg/dL (70-110)
[2020-07-02 21:36] LABS: Glucose Point of Care 206 mg/dL (70-110)
--- NOTE | 2020-07-02 23:11 | PM.CONSULT ---
Providers/Reason For Consult Consulting Physican/Specialty*: Dr. Fernandez/Pulmonary Reason for Consult*: Respiratory distress with FLuid overload & Hemoptysis Attending Physician: Law Erazo MD Primary Care Provider: Michael Eubanks DO History of Present Illness History of Present Illness Marlon Dorantes is a 50 year old male with PMHx idiopathic pulmonary hemosiderosis, hemochromatosis, ESRD, recent upper extremity DVT on Coumadin presented to ED with chief complaints of coughing up blood particularly for last 1 to 2 days and increasing shortness of breath even at rest to the point where he has to use his home oxygen continuously and increasing weight. patient was admitted to [facility] in [place] in May 2020 and was found to have a right upper extremity DVT and is currently on Coumadin. Last dose was taken the day before admission. He reports having had some degree of hemoptysis for approximately 2 years and has been on chronic steroids for this. However over the past 1 to 2 days he has had significant productive cough with increasing hemoptysis. He follows up with Dr. Macias as an outpatient. Previously on oxygen only as needed but due to ongoing shortness of breath has been using it pretty much all the time. He states that he has an extra day of dialysis due to continued generalized swelling but has not noticed much in the way of improvement. COVID-19 testing in ED negative. Admission labs white count of 18.1 with neutrophilic predominance, hemoglobin of 9.4, platelet count of 98, BUN of 99, creatinine of 8.4, and anion gap of 26.4, blood glucose of 180, INR of 2.04, lactic acid of 1.4, rapid COVID screen is negative, normal LFTs. Procalcitonin 1.10 Since admission, warfarin was held and patient denied any more episodes of hemoptysis. Initially he was on BiPAP and after dialysis took over 3 L of fluid and patient is currently on 2 L nasal cannula saturating 97%. And currently on Zosyn for suspected pneumonia, prednisone 20 twice daily for idiopathic pulmonary hemosiderosis. Today WBC trending down, patient appeared comfortable breathing and denied any further episodes. Plan to do another session of dialysis. Review of Systems General: Reports: 10 or more systems reviewed and unremarkable except in HPI and below Meds/Allergies Home Medications and Allergies Home Medications Medication Instructions Recorded Confirmed Last Taken Type amlodipine 10 mg tablet 10 mg PO BEDTIME 10/31/19 07/02/20 07/01/20 20:00 History 10 mg aspirin 81 mg tablet,delayed 81 mg PO DAILY 10/31/19 07/02/20 07/01/20 08:00 History release 81 furosemide 20 mg tablet 60 mg PO QAM tab 10/31/19 07/02/20 07/01/20 History 60 mg nitroglycerin 0.4 mg sublingual 0.4 mg SUBLINGUAL Q5M PRN 10/31/19 07/02/20 Unknown History tablet metoprolol tartrate 50 mg tablet 50 mg PO DAILY tab 11/09/19 07/02/20 07/01/20 History 50 mg clonidine HCl 0.1 mg PO DAILY PRN 01/01/20 07/02/20 Unknown History losartan 25 mg tablet 25 mg PO DAILY #90 tab 02/01/20 07/02/20 07/01/20 08:00 Rx 25 mg RenaPlex-D See Rx Instructions .ROUTE .COMPLEX 02/28/20 07/02/20 06/30/20 History oxycodone-acetaminophen 5 mg-325 1 tab PO Q6H PRN 7 Days #28 tab 03/20/20 07/02/20 07/01/20 Rx mg tablet 5 mg / 325 mg promethazine 12.5 mg tablet 12.5 mg PO Q6H PRN 04/29/20 07/02/20 07/01/20 History 12.5 mg Heparin Injection See Rx Instructions .ROUTE .COMPLEX 05/24/20 07/02/20 06/30/20 History calcitriol See Rx Instructions .ROUTE .COMPLEX 05/24/20 07/02/20 06/30/20 History 0.5 mcg clonazepam See Rx Instructions .ROUTE .COMPLEX 05/24/20 07/02/20 Unknown History gabapentin 100 mg PO BID 05/24/20 07/02/20 07/01/20 20:00 History 100 lidocaine-prilocaine See Rx Instructions .ROUTE .COMPLEX 05/24/20 07/02/20 06/30/20 History pantoprazole 40 mg PO QAM 05/24/20 07/02/20 07/01/20 History 40 mg prednisone 20 mg tablet 20 mg PO BID tab 06/10/20 07/02/20 07/01/20 History 20 mg warfarin 5 mg tablet 2.5 mg PO DAILY 06/10/20 07/02/20 07/01/20 20:00 History Allergies Allergy/AdvReac Type Severity Reaction Status Date / Time azithromycin Allergy ADR-Chest Verified 06/10/20 11:13 Pain carvedilol AdvReac ADR-Dizzine Verified 06/10/20 11:13 ss Current Medications Current Medications Generic Name Dose Route Start Last Admin Trade Name Freq PRN Reason Stop Dose Admin Amlodipine Besylate 10 mg 07/02/20 21:00 07/02/20 20:24 Norvasc PO 10 mg BEDTIME JANNET Administration Furosemide 60 mg 07/02/20 06:00 07/02/20 06:06 Lasix PO 60 mg QAM JANNET Administration Piperacillin Sod/Tazobactam 50 mls @ 12.5 mls/hr 07/02/20 14:00 07/02/20 19:21 Sod 3.375 gm/ Sodium Chloride IV Infused Q12H JANNET Infusion Protocol Insulin Aspart 0 unit 07/02/20 08:00 07/02/20 20:57 Novolog SUBCUT 8 unit WM&BEDTIME JANNET Administration Protocol Losartan Potassium 25 mg 07/02/20 09:00 07/02/20 09:14 Cozaar PO 25 mg DAILY JANNET Administration Metoprolol Tartrate 50 mg 07/02/20 09:00 07/02/20 09:14 Lopressor PO 50 mg DAILY JANNET Administration Oxycodone/Acetaminophen 1 tab 07/02/20 02:40 07/02/20 19:21 Percocet 5-325 Mg PO 1 tab Q6H PRN Administration Moderate To Severe Pain Pantoprazole Sodium 40 mg 07/02/20 06:00 07/02/20 06:06 Protonix PO 40 mg QAM JANNET Administration Prednisone 20 mg 07/02/20 09:00 07/02/20 17:40 Prednisone PO 20 mg BID JANNET Administration PFSH Acute PFSH: Medical History Atherosclerotic heart disease of [place] coronary artery without angina pectoris Benign essential hypertension Cardiomyopathy CHF NYHA class III (symptoms with mildly strenuous activities) COPD (chronic obstructive pulmonary disease) Diabetes mellitus Dyslipidemia ESRD (end stage renal disease) Fistula Left Wrist Headache Hemoptysis Hemoptysis Idiopathic pulmonary hemosiderosis Mixed hyperlipidemia Nicotine dependence, cigarettes, uncomplicated Non-ST elevation (NSTEMI) myocardial infarction Pulmonary hypertension Right-sided chest pain Surgical History H/O elbow surgery H/O hand surgery H/O neck surgery History of back surgery History of intravascular stent placement History of thoracotomy Family History Grandmother , In her 50's Myocardial infarction Father Diabetes Mother Diabetes Social History Smoking and tobacco status: former smoker Quit status (tobacco): has quit using tobacco Year quit tobacco: 1999 - 2PPD x 20 Years Alcohol intake: current Alcohol intake frequency: holidays/special occasions only Lives independently: Yes Household members: spouse Marital status: Current occupational status: disabled History of recent travel: No Current gender identity: Male Vitals/I&O/Wt Last Vital Signs Temp 97.8 F 07/02/20 11:20 Pulse 70 07/02/20 19:00 Resp 20 H 07/02/20 19:21 BP 125/80 07/02/20 13:40 Pulse Ox 97 07/02/20 19:00 07/02/20 07/02/20 07/03/20 14:59 22:59 06:59 Intake Total 290 / 290 530 / 820 Output Total 0 / 0 Balance 290 / 290 530 / 820 Weight last 48 hrs Weight 228 lb 3.2 oz Weight 200 lb Data Micro: Micro: Microbiology 07/01/20 23:08 Blood Culture - Pr eliminary Blood SPECIMEN [facility] 07/01/20 23:05 Blood Culture - Pr eliminary Blood SPECIMEN [facility] Other Data: Other data: CT chest 07/02/2020: 1. Small to moderate left pleural effusion with compressive atelectasis in the left lower lobe. Pleural effusions have improved since . Tiny right pleural effusion. 2. Wedge-shaped consolidative opacity right lower lobe measuring 2.7 x 3.5 cm. Recommend follow-up to resolution. 3. Diffuse hazy groundglass infiltrates throughout the right lung suspicious for pneumonia. 4. Postoperative changes right middle lobe appears new from previous. 5. Vascular calcification including coronary. 6. A few prominent peribronchial lymph nodes likely reactive. 7. Diffuse body wall anasarca. A&P Assessment and plan (1) Idiopathic pulmonary hemosiderosis: Status: Chronic (2) ESRD (end stage renal disease): Status: Chronic (3) Sepsis: Status: Acute Qualifiers: Sepsis type: sepsis due to unspecified organism Sepsis acute organ dysfunction status: with acute organ dysfunction Severe sepsis acute organ dysfunction type: unspecified Severe sepsis shock status: without septic shock Qualified Code(s): A41.9 - Sepsis, unspecified organism; R65.20 - Severe sepsis without septic shock (4) DVT (deep venous thrombosis): Status: Acute Qualifiers: DVT location: upper extremity Affected thrombotic vein of extremity: unspecified vein of extremity Chronicity: acute Laterality: right Qualified Code(s): I82.621 - Acute embolism and thrombosis of deep veins of right upper extremity (5) Hemochromatosis: Status: Chronic Qualifiers: Hemochromatosis type: unspecified Qualified Code(s): E83.119 - Hemochromatosis, unspecified (6) Pneumonia: Status: Acute Qualifiers: Laterality: right Lung location: lower lobe of lung Pneumonia type: due to unspecified organism Qualified Code(s): J18.9 - Pneumonia, unspecified organism (7) Hemoptysis: Status: Acute (8) Pleural effusion: Status: Acute #Hemoptysis-secondary to? DAH due to underlying idiopathic pulmonary hemosiderosis and diagnosed with hemochromatosis and on anticoagulation with warfarin for upper extremity DVT diagnosed in May 2020 at [facility] -Chronic hemoptysis for last 2 years; On steroids recently and improved shortness of breath and hemoptysis during last clinic visit on 06/10/2020 -Around the same time patient was started on warfarin after being diagnosed with upper extremity DVT in [facility] which could have contributed to worsening of hemoptysis in the last couple of days - no more episodes since admission -Warfarin held and INR today 2.05 -Currently on prednisone 20 mg twice daily -Saturating 97% on 2 L, improved since admission - #Shortness of breath could be likely due to fluid overload from ESRD-cannot rule out underlying sepsis due to pneumonia #Chronic bilateral pleural effusions left > right -overall improved compared to previous CT -CT 07/02/2020:Small to moderate left pleural effusion with compressive atelectasis in the left lower lobe. Pleural effusions have improved since 09/2019. Tiny right pleural effusion. -Underlying pneumonia cannot be excluded especially with procalcitonin 1.10 and a consolidative patch on right lower lobe and CT -Currently covered with Zosyn -Blood cultures pending -Recommended to send sputum culture -Leukocytosis could be due to steroids-monitor for fevers and worsening of leukocytosis -At this point pleural effusion thought to be secondary to ESRD and should improve with dialysis #Upper extremity DVT on warfarin started mid May 2020 -Held warfarin in view of worsening hemoptysis -If possible obtain upper extremity Doppler studies done at [facility] -At this point weighing risks versus benefits I feel like we should hold anticoagulation as patient is high risk of developing diffuse DAH Overall patient seems to be clinically improving with dialysis and fluid removal. Would recommend to continue steroids 20 twice daily, hold warfarin and follow-up with renal to take out more fluid as patient is clinically volume overloaded before discharging home. Patient will follow-up with Dr. Macias in pulmonary clinic after discharge for idiopathic pulmonary hemosiderosis. 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 Patient Type New History Comprehensive Exam Comprehensive Medical Decision Making High Complexity Diagnoses Idiopathic pulmonary hemosiderosis J84.03 ESRD (end stage renal disease) N18.6 Sepsis A41.9; R65.20 Sepsis type: sepsis due to unspecified organism Sepsis acute organ dysfunction status: with acute organ dysfunction Severe sepsis acute organ dysfunction type: unspecified Severe sepsis shock status: without septic shock DVT (deep venous thrombosis) I82.621 DVT location: upper extremity Affected thrombotic vein of extremity: unspecified vein of extremity Chronicity: acute Laterality: right Hemochromatosis E83.119 Hemochromatosis type: unspecified Pneumonia J18.9 Laterality: right Lung location: lower lobe of lung Pneumonia type: due to unspecified organism Hemoptysis R04.2 Pleural effusion J90 Time Spent (min) 45
[2020-07-03] VITALS (31 sets, daily range): BP systolic 117–149; BP diastolic 72–93; PULSE 59–88; RESP 10–23; TEMP 36.5–36.7; O2SAT 94–100
[2020-07-03] MEDS: oxyCODONE-APAP 5-325 mg Tablet 1 TAB PO (01:25)
[2020-07-03] MEDS: piperacillin-tazobactam 3.375 GM in sodium chloride 0.9% (plus) 50 ML IV ×2 (02:37→16:02)
[2020-07-03 03:35] LABS: Basophils % 0.1 %; Hematocrit 27.2 % (42.0-52.0); Hemoglobin 8.8 g/dL (11.7-16.6); Lymphocytes # 0.2 10^3/uL (0.8-4.8); Lymphocytes % 1.5 %; Mean Corpuscular HGB Conc 32.4 g/dL (30.0-36.0); Mean Corpuscular Hemoglobin 33.2 pg (28.0-34.0); Mean Corpuscular Volume 102.6 fL (80-94); Mean Platelet Volume 11.3 fL (7.4-10.4); Monocytes # 0.7 10^3/uL (0.2-0.9); Monocytes % 4.8 %; Neutrophils # 13.37 10^3/uL (1.8-7.7); Nucleated Red Blood Cells % 0 %; Platelet Count 86 10^3/cmm (130-400); Red Blood Count 2.65 10^6/uL (4.1-5.3); Red Cell Distribution Width 17.2 % (12.1-15.1); White Blood Count 14.4 10^3/uL (4.0-10.0)
[2020-07-03 03:59] LABS: Alanine Aminotransferase 19 U/L (0-41); Alkaline Phosphatase 53 IU/L (40-130); Anion Gap 20.6 (5-19); Aspartate Amino Transferase 13 U/L (0-40); Blood Urea Nitrogen 75 mg/dL (6-20); Calcium 7.4 mg/dL (8.5-10.5); Carbon Dioxide 23 mmol/L (22-29); Chloride 95 mmol/L (98-107); Globulin 2.4 g/dL (1.3-4.6); Glomerular Filtration Rate 8.7 mL/min (90-130); Glucose 227 mg/dL (65-115); Osmolality Calculated 285 mOsm/kg (285-295); Potassium 4.6 mmol/L (3.5-5.1); Sodium 134 mmol/L (136-145); Total Bilirubin 1.3 mg/dL (0.15-1.2); Total Protein 5.4 g/dL (6.6-8.7)
[2020-07-03 04:02] LABS: INR 2.05 (0.8-1.2)
[2020-07-03 04:04] LABS: Magnesium 2.2 mg/dL (1.7-2.3)
[2020-07-03 04:22] LABS: Phosphorus 8.1 mg/dL (2.5-4.5)
[2020-07-03] MEDS: FUROsemide 20 mg Tablet 60 MG PO (06:01)
[2020-07-03] MEDS: pantoprazole DR 40 mg Tablet PO (06:01)
[2020-07-03] MEDS: oxyCODONE-APAP 10-325 mg Tablet 1 TAB PO ×3 (06:22→18:46)
--- NOTE | 2020-07-03 06:42 | PC.NURSE ---
Shift Events: Patient remains anuric but breathing much better after dialysis. Patient is off BiPap and his SpO2 is 94-95% on 3 liters nasal cannula. Unknown as to when he will go back for dialysis. Phosphorus is 8 this morning but K+ is WNL. Complaints of pain to left groin and physicians increased his pain medication from 5/325 of Percocet to 10/325. Patient is also complaining of pain to his abdomen and states that he feels as if it is tight in his abdomen. Pain gets worse after he eats. States pain got worse after he had an EGD/colonoscopy and liver biopsy. Remains AOx4. VSS.
--- NOTE | 2020-07-03 07:57 | P.PN_ITS ---
Subjective Subjective: Interval history: Marlon reports he is feeling better. No real hemoptysis. No chest discomfort currently. Medications: Reviewed: Yes Vitals/I&O/Wt Last Vital Signs Temp 97.7 F 07/03/20 04:00 Pulse 66 07/03/20 07:34 Resp 16 07/03/20 07:34 BP 121/77 07/03/20 06:00 Pulse Ox 96 07/03/20 07:34 07/02/20 07/03/20 07/03/20 22:59 06:59 14:59 Intake Total 770 / 1060 148.542 / 1208.542 Output Total 0 / 0 Balance 770 / 1060 148.542 / 1208.542 Weight last 48 hrs Weight 102.829 kg Weight 103.51 kg Weight 90.718 kg Physical Exam Narrative: EXAM NARRATIVE: General exam no apparent distress Cardiovascular regular in rhythm Lungs diminished breath sounds bilaterally but clear Abdomen is soft. Slight tenderness in the epigastric area Extremities no cyanosis clubbing. 2+ edema noted. Data : 07/03/20 02:55 07/03/20 02:55 Micro: Microbiology 07/03/20 06:35 Blood Culture - Preliminary Blood SPECIMEN COLLECTED 07/03/20 06:40 Blood Culture - Preliminary Blood SPECIMEN COLLECTED 07/01/20 23:05 Blood Culture - Preliminary Blood 07/01/20 23:08 Blood Culture - Preliminary Blood NEGATIVE TO DATE A&P Assessment and plan (1) Hemoptysis: Patient reports this is been longstanding but worse the last 1 to 2 days. Etiology may be superimposed infection, CHF secondary to fluid overload, Coumadin treatment. No significant hemoptysis since yesterday morning INR 2 this morning. Coumadin has been held in face of hemoptysis. Pulmonary on board. 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 He is on 3 L, with 2 L being his base at home. Status: Acute (2) Pneumonia: CT chest demonstrated moderate effusion, left side and right lung pneumonia. Continue Zosyn currently Await MRSA PCR Patient with sepsis on admission Blood and sputum cultures pending. Status: Acute Qualifiers: Laterality: right Lung location: lower lobe of lung Pneumonia type: due to unspecified organism Qualified Code(s): J18.9 - Pneumonia, unspecified organism (3) ESRD (end stage renal disease): Nephrology consulted Appreciate help with diuresis in this patient with significant fluid overload. From nursing, it appears he may be getting dialysis again today which would significantly help his fluid status. Status: Chronic (4) DVT (deep venous thrombosis): Holding anticoagulation currently secondary to hemoptysis. Patient with history of upper extremity DVT. Status: Acute Qualifiers: DVT location: upper extremity Affected thrombotic vein of extremity: unspecified vein of extremity Chronicity: acute Laterality: right Qualified Code(s): I82.621 - Acute embolism and thrombosis of deep veins of right upper extremity (5) Hemochromatosis: Status: Chronic Qualifiers: Hemochromatosis type: unspecified Qualified Code(s): E83.119 - Hemochromatosis, unspecified (6) Idiopathic pulmonary hemosiderosis: Followed by pulmonary, on chronic steroids. Continuing steroids currently. Status: Chronic (7) COPD (chronic obstructive pulmonary disease): Continue oxygen. He relates he is typically on approximately 2 L. Continue breathing treatments Status: Chronic Qualifiers: COPD type: unspecified COPD Qualified Code(s): J44.9 - Chronic obstructive pulmonary disease, unspecified (8) Benign essential hypertension: Continue home meds Status: Chronic (9) Diabetes mellitus: Sliding scale insulin Status: Chronic Qualifiers: Diabetes mellitus type: type 2 Diabetes mellitus [facility] insulin use: without [facility] use Diabetes mellitus complication status: with kidney complications Diabetes mellitus complication detail: with chronic kidney disease Chronic kidney disease stage: on chronic dialysis Qualified Code(s): E11.22 - Type 2 diabetes mellitus with diabetic chronic kidney disease; N18.6 - End stage renal disease; Z99.2 - Dependence on renal dialysis (10) CHF NYHA class III (symptoms with mildly strenuous activities): Previous echo September 2019 with EF of 30% Status: Acute Qualifiers: Congestive heart failure type: combined Congestive heart failure chronicity: acute on chronic Qualified Code(s): I50.43 - Acute on chronic combined systolic (congestive) and diastolic (congestive) heart failure Additional A&P Information Abdominal discomfort. Continue Protonix. CT abdomen and pelvis on admission demonstrated stable infiltration of mesenteric fat and no other significant findings. Elevated troponin. Likely type II, patient without chest discomfort currently. History of coronary artery disease and stenting SCDs for DVT prophylaxis Full code Probable transfer out of ICU if no issues with dialysis. Attestations Medical Necessity Statement*: Needs continued hospitalization for IV antibiotics secondary to pneumonia Coding Level of Care Code Acute Air Compressor Operator for Chg Fwd Diagnoses Hemoptysis R04.2 Pneumonia J18.9 Laterality: right Lung location: lower lobe of lung Pneumonia type: due to unspecified organism ESRD (end stage renal disease) N18.6 DVT (deep venous thrombosis) I82.621 DVT location: upper extremity Affected thrombotic vein of extremity: unspecified vein of extremity Chronicity: acute Laterality: right Hemochromatosis E83.119 Hemochromatosis type: unspecified Idiopathic pulmonary hemosiderosis J84.03 COPD (chronic obstructive pulmonary disease) J44.9 COPD type: unspecified COPD Benign essential hypertension I10 Diabetes mellitus E11.22; N18.6; Z99.2 Diabetes mellitus type: type 2 Diabetes mellitus [facility] insulin use: without music rehabilitation therapist use Diabetes mellitus complication status: with kidney complications Diabetes mellitus complication detail: with chronic kidney disease Chronic kidney disease stage: on chronic dialysis CHF NYHA class III (symptoms with mildly strenuous activities) I50.43 Congestive heart failure type: combined Congestive heart failure chronicity: acute on chronic
--- NOTE | 2020-07-03 09:00 | PC.NURSE ---
Fistula left forearm has good thrill and bruit. Site is clean, dry, and intact, no signs of infection.
[2020-07-03] MEDS: losartan 50 mg Tablet 25 MG PO (09:12)
[2020-07-03] MEDS: metoprolol tartrate 50 mg Tablet PO (09:12)
[2020-07-03] MEDS: predniSONE 20 mg Tablet PO ×2 (09:13→17:42)
[2020-07-03 11:31] LABS: Glucose Point of Care 202 mg/dL (70-110)
[2020-07-03 11:31] LABS: Glucose Point of Care 195 mg/dL (70-110)
--- NOTE | 2020-07-03 12:09 | P.PN_ITS ---
Subjective Subjective: Interval history: Seen during dialysis. Feels a little better. History reviewed. Significant lower extremity edema developed about one month ago. He only makes 250 ml urine daily. Not currently taking phosphate binder or epogen. Uses buttonhole cannulation AVF for home HD. Reports cramps in fingers and chest wall Medications: Reviewed: Yes Medication Review Details: metoprolol tartrate ordered daily Vitals/I&O/Wt Last Vital Signs Temp 97.7 F 07/03/20 04:00 Pulse 78 07/03/20 11:00 Resp 16 07/03/20 11:00 BP 135/84 07/03/20 11:00 Pulse Ox 95 07/03/20 11:00 07/02/20 07/03/20 07/03/20 22:59 06:59 14:59 Intake Total 770 / 1060 148.542 / 1208.542 600 / 600 Output Total 0 / 0 Balance 770 / 1060 148.542 / 1208.542 600 / 600 Weight last 48 hrs Weight 102.829 kg Weight 103.51 kg Weight 90.718 kg Physical Exam Const: COMMON NORMALS: no acute distress GENERAL APPEARANCE: cooperative Eye: COMMON NORMALS: no scleral icterus Resp: COMMON NORMALS: normal respiratory effort AUSCULTATION: rhonchi Cardio: COMMON NORMALS: regular rate and regular rhythm RATE: regular rate RHYTHM: regular rhythm Extremity: GENERAL: Yes edema (3+ bilateral LE) OTHER: left forearm AVF Data : 07/03/20 02:55 07/03/20 02:55 Other Labs: phos 8.1, calcium 7.4, corrected 8.2, albumin 3.0, Mg 2.2 7.44/32 Micro: Microbiology 07/02/20 18:40 MRSA Culture - Final Nose 07/03/20 06:35 Blood Culture - Preliminary Blood SPECIMEN COLLECTED 07/03/20 06:40 Blood Culture - Preliminary Blood SPECIMEN COLLECTED 07/01/20 23:05 Blood Culture - Preliminary Blood 07/01/20 23:08 Blood Culture - Preliminary Blood NEGATIVE TO DATE A&P Additional A&P Information 1. ESRD, volume overload. HD today 2L UF as tolerated. Need to apply antibiotic ointment to buttonholes after HD (prophylaxis). 3K bath, HD again tomorrow and Tuesday. Furosemide changed to torsemide 100 mg daily. Fluid restrict 2. Pneumonia, on vancomycin, follow levels 3. Hyperphosphatemia, hypocalcemia. begin renvela and tums 4. Hypertension, change daily metoprolol from tartrate to succinate 6. Anemia - reports he was not receiving epogen as outpatient Attestations Medical Necessity Statement*: per primary service Time Spent in Patient Care: Greater than 35 minutes Coding Level of Care Code Acute Minister Helper for Ger Godfrey
[2020-07-03] MEDS: mupirocin oint 22 gm 1 APPLIC TOPICAL (12:24)
--- NOTE | 2020-07-03 13:10 | PC.RESP ---
Pulmonary Rehab information sent to patient.
--- NOTE | 2020-07-03 13:36 | ECG_ITS ---
[facility] Test Date: 2020-07-03 Pat Name: Marlon Dorantes Department: Room: ICU07 Gender: Male Research Project Manager: : 1970 Requested By: Law Ireland Order Number: [id number] Tiffani MD: Kei Lee M.D. Measurements Intervals [place] Rate: 70 P: 46 CA: 154 QRS: 35 QRSD: 106 T: 199 QT: 440 QTc: 477 Interpretive Statements SINUS RHYTHM POSSIBLE LEFT ATRIAL ENLARGEMENT [-0.1mV P WAVE IN V1/V2] ST DEVIATION AND MODERATE T-WAVE ABNORMALITY, CONSIDER LATERAL ISCHEMIA [-0.1+ mV T WAVE IN I/aVL/V5/V6] ST DEVIATION AND MODERATE T-WAVE ABNORMALITY, CONSIDER INFERIOR ISCHEMIA [-0.1+ mV T WAVE IN II/aVF] Compared to ECG 07/02/2020 17:39:32 T-wave abnormality now present Possible ischemia now present Left ventricular hypertrophy no longer present ST (T wave) deviation no longer present Electronically Signed On 07-03-2020 20:22:19 CDT by Kei Lee M.D. [id number]
[2020-07-03] MEDS: nitroglycerin 0.4 mg sublingual Tablet SUBLINGUAL ×2 (13:48→13:55)
--- NOTE | 2020-07-03 13:58 | USCV_ITS ---
Marlon Dorantes Age: 50 Gender: M : 1970 Exam Date: 07/03/2020 14:13 Ordering Phys: Law Erazo MD Technologist: Sammy Liu Exam Location: [facility] [place] Indication: Chest Pain BP: 134 / 83 HR: 77 Rhythm: Sinus Technical Quality: Technically difficult study MEASUREMENTS (Male / Female) Normal Values 2D ECHO LV Diastolic Diameter PLAX 5.7 cm 4.2 - 5.9 / 3.9 - 5.3 cm LV Systolic Diameter PLAX 4.3 cm IVS Diastolic Thickness 1.0 cm 0.6 - 1.0 / 0.6 - 0.9 cm IVS Systolic Thickness 1.3 cm LVPW Diastolic Thickness 1.1 cm 0.6 - 1.0 / 0.6 - 0.9 cm LVPW Systolic Thickness 1.4 cm LVOT Diameter 2.0 cm LV Ejection Fraction 2D Teich 48.4 % LV Ejection Fraction MOD 2C 42.2 % LV Ejection Fraction 2C AL 41.1 % LA Diameter 3.7 cm LA Width 5.1 cm LA Height 6.4 cm RA Width 4.5 cm RA Height 5.3 cm Aorta at Sinotubular Diameter 1.0 cm DOPPLER AV Peak Velocity 230.0 cm/s LVOT Peak Velocity 89.0 cm/s AV Area Cont Eq vti 1.3 cm squared AV Area Cont Eq pk 1.3 cm squared MV Area PHT 5.0 cm squared Mitral E to A Ratio 1.4 MV E' Velocity 11.0 cm/s Mitral E to MV E' Ratio 13.6 Mitral E to LV E' Lateral Ratio 10.0 Mitral E to LV E' Septal Ratio 21.2 TR Peak Velocity 199.0 cm/s TR Peak Gradient 15.8 mmHg TV Peak E Velocity 106.0 cm/s Right Atrial Pressure 3.0 mmHg Pulmonary Artery Systolic Pressu 18.8 mmHg PV Peak Velocity 115.0 cm/s FINDINGS Left Ventricle Left ventricle is mildly dilated. LV systolic function is severely reduced with EF of 30 to 35%. Severe global hypokinesis is noted. Normal left ventricular wall thickness. Grade 2 diastolic dysfunction is noted. Right Ventricle The right ventricle is normal in size and function. Right Atrium The right atrium is normal in size. Left Atrium The left atrium is normal in size. Mitral Valve Structurally normal mitral valve without significant stenosis or prolapse. There is mild mitral regurgitation. Aortic Valve Aortic valve is thickened. There is no aortic regurgitation. Tricuspid Valve Structurally normal tricuspid valve without significant stenosis or regurgitation. Insufficient TR jet to calculate RVSP. Pulmonic Valve Structurally normal pulmonic valve without significant stenosis. There is no pulmonic regurgitation. Pericardium Normal pericardium without effusion. Aorta Normal ascending aorta dimension. CONCLUSIONS Compared to previous echo, no significant changes are noted. LV systolic function is severely reduced with EF of 30 to 35%. Grade 2 diastolic dysfunction is noted. Vaibhav Gallegos MD (Electronically Signed) Final Date: 03 July 2020 19:02 S
[2020-07-03] MEDS: nitroglycerin 1 gm/inch oint Pkt 0.5 INCH TOPICAL ×2 (14:07→20:09)
[2020-07-03] MEDS: TORSEmide 20 mg Tablet 100 MG PO (14:29)
[2020-07-03] MEDS: vancomycin 1,000 MG in sodium chloride 0.9% 250 ML 250 MG IV (14:29)
[2020-07-03] MEDS: sevelamer 800 mg Tablet 1600 MG PO ×2 (14:30→20:09)
--- NOTE | 2020-07-03 14:38 | PC.NURSE ---
1340 Chest pain EKG performed, Sinus rhythm, handed to Dr. Erazo. Nitro sublingual x2, 1/2 inch nitro paste applied. VSS. Patient states pain is better but rates it at a 7 everytime. (has rated pain at 7 every time today).
[2020-07-03 17:21] LABS: Glucose Point of Care 164 mg/dL (70-110)
[2020-07-03] MEDS: ondansetron 2 mg/ML SDV 2 mL 4 MG IVP (17:23)
[2020-07-03] MEDS: calcium carbonate 500 mg Chew Tablet PO (17:42)
[2020-07-03] MEDS: amlodipine 10 mg Tablet PO (20:09)
[2020-07-03] MEDS: atorvastatin 40 mg Tablet PO (20:09)
[2020-07-03] MEDS: HYDROmorphone 1 mg/mL INJ 1 mL 0.5 MG IVP ×2 (20:41→23:13)
[2020-07-03 20:52] LABS: Glucose Point of Care 267 mg/dL (70-110)
[2020-07-04] VITALS (24 sets, daily range): BP systolic 114–154; BP diastolic 69–94; PULSE 56–92; RESP 7–27; TEMP 36.6–36.9; O2SAT 92–100; BMI 32.8
[2020-07-04] MEDS: piperacillin-tazobactam 3.375 GM in sodium chloride 0.9% (plus) 50 ML IV ×2 (01:13→14:13)
[2020-07-04] MEDS: oxyCODONE-APAP 10-325 mg Tablet 1 TAB PO ×3 (01:13→17:35)
[2020-07-04] MEDS: nitroglycerin 1 gm/inch oint Pkt 0.5 INCH TOPICAL ×4 (01:13→20:58)
[2020-07-04] MEDS: HYDROmorphone 1 mg/mL INJ 1 mL 0.5 MG IVP ×2 (03:01→06:39)
[2020-07-04 04:54] LABS: Basophils % 0.1 %; Hematocrit 29.2 % (42.0-52.0); Hemoglobin 9.2 g/dL (11.7-16.6); Lymphocytes # 0.3 10^3/uL (0.8-4.8); Lymphocytes % 1.9 %; Mean Corpuscular HGB Conc 31.5 g/dL (30.0-36.0); Mean Corpuscular Hemoglobin 32.5 pg (28.0-34.0); Mean Corpuscular Volume 103.2 fL (80-94); Mean Platelet Volume 10.9 fL (7.4-10.4); Monocytes # 0.6 10^3/uL (0.2-0.9); Monocytes % 4.7 %; Neutrophils # 12.42 10^3/uL (1.8-7.7); Neutrophils % 92.6 %; Nucleated Red Blood Cells % 0.1 %; Platelet Count 103 10^3/cmm (130-400); Red Blood Count 2.83 10^6/uL (4.1-5.3); Red Cell Distribution Width 16.9 % (12.1-15.1); White Blood Count 13.4 10^3/uL (4.0-10.0)
[2020-07-04 05:09] LABS: INR 1.57 (0.8-1.2)
[2020-07-04 05:16] LABS: Magnesium 2.1 mg/dL (1.7-2.3); Phosphorus 7.3 mg/dL (2.5-4.5)
[2020-07-04 05:20] LABS: Alanine Aminotransferase 22 U/L (0-41); Albumin Level 3.2 g/dL (3.5-5.2); Alkaline Phosphatase 55 IU/L (40-130); Anion Gap 18.9 (5-19); Aspartate Amino Transferase 14 U/L (0-40); Blood Urea Nitrogen 59 mg/dL (6-20); Calcium 7.4 mg/dL (8.5-10.5); Carbon Dioxide 25 mmol/L (22-29); Chloride 96 mmol/L (98-107); Globulin 2.3 g/dL (1.3-4.6); Glomerular Filtration Rate 11.8 mL/min (90-130); Glucose 166 mg/dL (65-115); Osmolality Calculated 282 mOsm/kg (285-295); Potassium 4.9 mmol/L (3.5-5.1); Sodium 135 mmol/L (136-145); Total Bilirubin 1.1 mg/dL (0.15-1.2); Total Protein 5.5 g/dL (6.6-8.7)
[2020-07-04] MEDS: pantoprazole DR 40 mg Tablet PO (05:27)
--- NOTE | 2020-07-04 07:49 | PM.CONSULT ---
Providers/Reason For Consult Consulting Physican/Specialty*: Vaibhav Gallegos MD/Cardiology Reason for Consult*: Chest pain Attending Physician: Law Erazo MD Primary Care Provider: Michael Eubanks DO History of Present Illness History of Present Illness Marlon Dorantes is a 50 year old male with past medical history of end-stage renal disease on hemodialysis, coronary artery disease with LAD stent in 2014, diabetes, hypertension presented to the hospital with chief complaint of hemoptysis. Patient was started on Coumadin about 2 months ago for upper extremity DVT on the right side. However he has been having hemoptysis for the last 2 years and has been diagnosed with idiopathic pulmonary hemosiderosis. Since starting the Coumadin this problem was aggravating and over the last couple of days he says that he was having mouthful of blood. Cardiology was consulted as he was complaining of chest discomfort at the end of dialysis session. He says he felt substernal chest pain during the dialysis session in the hospital. It is pleuritic in nature and worsened by deep breathing. He describes it as sharp pain. His initial troponin was 212 at time of admission which trended to 245. Echocardiogram performed yesterday did not show any change from prior and he has a EF of 30 to 35% with global hypokinesis. Patient had a coronary angiogram done in December 2019 that showed proximal LAD diffuse 50 to 60% stenosis with widely patent mid LAD stent. Review of Systems Narrative: CONSTITUTIONAL: No fever chills weight loss or gain or night sweats. [] HEENT: Normocephalic, atraumatic.[] RESPIRATORY: No cough, sputum, hemoptysis or wheezing.[] CARDIOVASCULAR: No ongioing shortness of breath, chest pain, PND, orthopnea, lower extremity edema, presyncope or syncope. [] GI: no nausea vomiting diarrhea. [] DIRECTOR BUSINESS MANAGEMENT: No numbness, tingling, weakness or loss of function in any part of the body. [] MUSCULOSKELETAL: No knee or joint pain or rashes. [] Meds/Allergies Home Medications and Allergies Home Medications Medication Instructions Recorded Confirmed Last Taken Type amlodipine 10 mg tablet 10 mg PO BEDTIME 10/31/19 07/02/20 07/01/20 20:00 History 10 mg aspirin 81 mg tablet,delayed 81 mg PO DAILY 10/31/19 07/02/20 07/01/20 08:00 History release 81 furosemide 20 mg tablet 60 mg PO QAM tab 10/31/19 07/02/20 07/01/20 History 60 mg nitroglycerin 0.4 mg sublingual 0.4 mg SUBLINGUAL Q5M PRN 10/31/19 07/02/20 Unknown History tablet metoprolol tartrate 50 mg tablet 50 mg PO DAILY tab 11/09/19 07/02/20 07/01/20 History 50 mg clonidine HCl 0.1 mg PO DAILY PRN 01/01/20 07/02/20 Unknown History losartan 25 mg tablet 25 mg PO DAILY #90 tab 02/01/20 07/02/20 07/01/20 08:00 Rx 25 mg RenaPlex-D See Rx Instructions .ROUTE .COMPLEX 02/28/20 07/02/20 06/30/20 History oxycodone-acetaminophen 5 mg-325 1 tab PO Q6H PRN 7 Days #28 tab 03/20/20 07/02/20 07/01/20 Rx mg tablet 5 mg / 325 mg promethazine 12.5 mg tablet 12.5 mg PO Q6H PRN 04/29/20 07/02/20 07/01/20 History 12.5 mg Heparin Injection See Rx Instructions .ROUTE .COMPLEX 05/24/20 07/02/20 06/30/20 History calcitriol See Rx Instructions .ROUTE .COMPLEX 05/24/20 07/02/20 06/30/20 History 0.5 mcg clonazepam See Rx Instructions .ROUTE .COMPLEX 05/24/20 07/02/20 Unknown History gabapentin 100 mg PO BID 05/24/20 07/02/20 07/01/20 20:00 History 100 lidocaine-prilocaine See Rx Instructions .ROUTE .COMPLEX 05/24/20 07/02/20 06/30/20 History pantoprazole 40 mg PO QAM 05/24/20 07/02/20 07/01/20 History 40 mg prednisone 20 mg tablet 20 mg PO BID tab 06/10/20 07/02/20 07/01/20 History 20 mg warfarin 5 mg tablet 2.5 mg PO DAILY 06/10/20 07/02/20 07/01/20 20:00 History Allergies Allergy/AdvReac Type Severity Reaction Status Date / Time azithromycin Allergy ADR-Chest Verified 06/10/20 11:13 Pain carvedilol AdvReac ADR-Dizzine Verified 06/10/20 11:13 ss Current Medications Current Medications Generic Name Dose Route Start Last Admin Trade Name Freq PRN Reason Stop Dose Admin Amlodipine Besylate 10 mg 07/02/20 21:00 07/03/20 20:09 Norvasc PO 10 mg BEDTIME JANNET Administration Atorvastatin Calcium 40 mg 07/03/20 21:00 07/03/20 20:09 Lipitor PO 40 mg BEDTIME JANNET Administration Calcium Carbonate 500 mg 07/03/20 18:00 07/03/20 17:42 Tums PO 500 mg BID JANNET Administration Hydromorphone HCl 0.5 mg 07/03/20 22:53 07/04/20 06:39 Dilaudid Inj IVP 0.5 mg Q4H PRN Administration severe pain Piperacillin Sod/Tazobactam 50 mls @ 12.5 mls/hr 07/02/20 14:00 07/04/20 05:27 Sod 3.375 gm/ Sodium Chloride IV Infused Q12H JANNET Infusion Protocol Insulin Aspart 0 unit 07/02/20 08:00 07/03/20 21:02 Novolog SUBCUT 8 unit WM&BEDTIME JANNET Administration Protocol Losartan Potassium 25 mg 07/02/20 09:00 07/03/20 09:12 Cozaar PO 25 mg DAILY JANNET Administration Mupirocin 1 applic 07/03/20 12:15 07/03/20 12:24 Bactroban TOPICAL 1 applic DAILY JANNET Administration Nitroglycerin 0.4 mg 07/02/20 02:40 07/03/20 13:55 Nitrostat SUBLINGUAL 1 cap Q5M PRN Administration Pain Nitroglycerin 0.5 inch 07/03/20 14:00 07/04/20 01:13 Nitro-Bid TOPICAL 0.5 inch Q6H JANNET Administration Ondansetron HCl 4 mg 07/02/20 02:40 07/03/20 17:23 Zofran IVP 4 mg Q6H PRN Administration NAUSEA AND VOMITING Oxycodone/Acetaminophen 1 tab 07/03/20 06:10 07/04/20 06:24 Percocet 10-325 Mg PO 1 tab Q6H PRN Administration MODERATE PAIN Pantoprazole Sodium 40 mg 07/02/20 06:00 09/11/20 05:27 Protonix PO 40 mg QAM JANNET Administration Prednisone 20 mg 07/02/20 09:00 07/03/20 17:42 Prednisone PO 20 mg BID JANNET Administration Sevelamer Carbonate 1,600 mg 07/03/20 15:00 07/03/20 20:09 Renvela PO 1,600 mg TID JANNET Administration Torsemide 100 mg 07/03/20 15:00 07/03/20 14:29 Demadex PO 100 mg 0800 JANNET Administration PFSH Acute PFSH: Medical History Atherosclerotic heart disease of [place] coronary artery without angina pectoris Benign essential hypertension Cardiomyopathy CHF NYHA class III (symptoms with mildly strenuous activities) COPD (chronic obstructive pulmonary disease) Diabetes mellitus Dyslipidemia ESRD (end stage renal disease) Fistula Left Wrist Headache Hemoptysis Hemoptysis Idiopathic pulmonary hemosiderosis Mixed hyperlipidemia Nicotine dependence, cigarettes, uncomplicated Non-ST elevation (NSTEMI) myocardial infarction Pulmonary hypertension Right-sided chest pain Surgical History H/O elbow surgery H/O hand surgery H/O neck surgery History of back surgery History of intravascular stent placement History of thoracotomy Family History Grandmother , In her 50's Myocardial infarction Father Diabetes Mother Diabetes Social History Smoking and tobacco status: former smoker Quit status (tobacco): has quit using tobacco Year quit tobacco: 1999 - 2PPD x 20 Years Alcohol intake: current Alcohol intake frequency: holidays/special occasions only Lives independently: Yes Household members: spouse Marital status: Current occupational status: disabled History of recent travel: No Current gender identity: Male Vitals/I&O/Wt Last Vital Signs Temp 98 F 07/04/20 01:00 Pulse 58 L 07/04/20 06:00 Resp 14 07/04/20 06:00 BP 118/70 07/04/20 06:00 Pulse Ox 96 07/04/20 06:00 07/03/20 07/04/20 07/04/20 22:59 06:59 14:59 Intake Total 300 / 1121.458 750 / 1871.458 Output Total 50 / 50 Balance 250 / 1071.458 750 / 1821.458 Weight last 48 hrs Weight 229 lb Weight 226 lb 11.2 oz Data Micro: Micro: Microbiology 07/03/20 06:35 Blood Culture - Pr eliminary Blood NEGATIVE TO POOJA E 07/03/20 06:40 Blood Culture - Pr eliminary Blood NEGATIVE TO POOJA E 07/03/20 08:30 Gram Stain - Final Sputum - Expector ated Sputum 07/01/20 23:05 Blood Culture - Pr eliminary Blood Gram positive c occi 07/02/20 18:40 MRSA Culture - Fin al Nose A&P Assessment and plan (1) Chest pain: Status: Acute (2) Benign essential hypertension: Status: Chronic (3) Diabetes mellitus: Status: Chronic Qualifiers: Diabetes mellitus type: type 2 Diabetes mellitus snf insulin use: without intermodal truck driver use Diabetes mellitus complication status: with kidney complications Diabetes mellitus complication detail: with chronic kidney disease Chronic kidney disease stage: on chronic dialysis Qualified Code(s): E11.22 - Type 2 diabetes mellitus with diabetic chronic kidney disease; N18.6 - End stage renal disease; Z99.2 - Dependence on renal dialysis (4) Cardiomyopathy: Status: Acute (5) Hemoptysis: Status: Acute Patient had atypical chest pain symptoms. His baseline troponin on admission were high and chest pain started during hospital stay and was atypical. This is likely from type II [place] with demand ischemia. Given his recent cath findings from December of this year, I will recommend to manage patient conservatively. He presented with hemoptysis. His echo is unchanged from before and chest pain is atypical. He will need ischemic evaluation likely with a stress test once his current issues including hemoptysis are controlled. This can be done as outpatient. Continue current medications. If patient needs to be off of anticoagulation secondary to hemoptysis, can consider repeating upper extremity ultrasound to see extent and presence of DVT. Thank you for involving us with the care of this patient. Please call with questions. Coding Level of Care Code Acute Reservation Clerk for Ger Godfrey Diagnoses Chest pain R07.9 Benign essential hypertension I10 Diabetes mellitus E11.22; N18.6; Z99.2 Diabetes mellitus type: type 2 Diabetes mellitus snf insulin use: without intermodal truck driver use Diabetes mellitus complication status: with kidney complications Diabetes mellitus complication detail: with chronic kidney disease Chronic kidney disease stage: on chronic dialysis Cardiomyopathy I42.9 Hemoptysis R04.2
[2020-07-04] MEDS: TORSEmide 20 mg Tablet 100 MG PO (09:43)
[2020-07-04] MEDS: metoprolol succinate ER (24 HR) 50 mg Tablet PO (09:44)
[2020-07-04] MEDS: losartan 50 mg Tablet 25 MG PO (09:44)
[2020-07-04] MEDS: predniSONE 20 mg Tablet PO ×2 (09:44→17:11)
[2020-07-04] MEDS: calcium carbonate 500 mg Chew Tablet PO ×2 (09:44→17:11)
[2020-07-04] MEDS: sevelamer 800 mg Tablet 1600 MG PO ×3 (09:44→20:58)
--- NOTE | 2020-07-04 09:48 | P.PN_ITS ---
Subjective Subjective: Interval history: Patient completed his dialysis today UF 2500 ml removed. He denies any chest pain any shortness of breath any cough any fever any chills any nausea any vomiting. Vitals have been reviewed and is stable. He denies any hemoptysis. He is complaining of left arms and forearm pain and swelling. I went and evaluated pulse is present, sensation is intact, given his hypercoagulable condition and recent history of DVT. We will order a Doppler ultrasound to rule out any DVT. He has also been started on Eliquis 5 mg every 12 daily and warfarin has been discontinued. INR today was 1.6 and it was appropriate for Eliquis to be started. We will monitor him for any possible bleeding. We will continue with his antibiotic. he is on day 3 of Zosyn. Cardiology was also on board as he was complaining of intermittent chest pain. As per cardiology recommendation no acute intervention is needed at this time. Medications: Reviewed: Yes Medication Review Details: metoprolol tartrate ordered daily Vitals/I&O/Wt Last Vital Signs Temp 98 F 07/04/20 01:00 Pulse 58 L 07/04/20 06:00 Resp 14 07/04/20 06:00 BP 118/70 07/04/20 06:00 Pulse Ox 96 07/04/20 06:00 07/03/20 07/04/20 07/04/20 22:59 06:59 14:59 Intake Total 300 / 1121.458 750 / 1871.458 Output Total 50 / 50 Balance 250 / 1071.458 750 / 1821.458 Weight last 48 hrs Weight 103.873 kg Weight 102.829 kg Physical Exam Const: COMMON NORMALS: patient oriented x3 HENMT: COMMON NORMALS: normocephalic, atraumatic, hearing grossly normal bilaterally and external ears normal HEAD & SCALP: normocephalic and atraumatic EXTERNAL EAR: Yes external ears normal Eye: COMMON NORMALS: no scleral icterus GENERAL EYE: appearance normal, both eyes and all related structures Chest: COMMONS NORMALS: normal inspection of the chest and normal palpation of entire chest wall CHEST: Yes Symmetrical chest wall rise Resp: COMMON NORMALS: normal respiratory effort, No retractions, No use of accessory muscles and clear to auscultation bilaterally EFFORT & INSPECTION: Yes symmetric chest movement AUSCULTATION: clear to auscultation bilaterally Cardio: COMMON NORMALS: regular rate, regular rhythm, S1 normal heart sound present, S2 normal heart sound present, No gallops present (Cardio), No murmurs present (Cardio), No rub (Cardio) and Peripheral pulses 2+ throughout RATE: regular rate RHYTHM: regular rhythm HEART SOUNDS: S1 normal heart sound present and S2 normal heart sound present PERIPHERAL PULSES: Peripheral pulses 2+ throughout GI: COMMON NORMALS: Normal to inspection, nondistended, normoactive bowel sounds present, Soft to palpation, non-tender, No hepatosplenomegaly present and no masses AUSCULTATION: Yes normoactive bowel sounds PALPATION: Yes Soft to palpation and Yes No hepatosplenomegaly present RECTAL EXAM: Yes deferred : COMMON NORMALS: Yes no CVA tenderness BLADDER/KIDNEY EXAM: Yes no CVA tenderness Back/Pelvis: COMMON NORMALS: no CVA tenderness Extremity: COMMON NORMALS: no pedal edema NARRATIVE EXTREMITY EXAM: Left upper extremity swelling. Pulses intact. Sensation intact. Bilateral lower extremity 3+ pitting edema. Neuro: COMMON NORMALS: patient oriented x3 Data : 07/04/20 04:30 07/04/20 04:30 Micro: Microbiology 07/03/20 06:35 Blood Culture - Preliminary Blood NEGATIVE TO DATE 07/03/20 06:40 Blood Culture - Preliminary Blood NEGATIVE TO DATE 07/03/20 08:30 Gram Stain - Final Sputum - Expectorated Sputum 07/01/20 23:05 Blood Culture - Preliminary Blood Gram positive cocci 07/02/20 18:40 MRSA Culture - Final Nose A&P Assessment and plan (1) Hemoptysis: Patient reports this is been longstanding but worse the last 1 to 2 days. Etiology may be superimposed infection, CHF secondary to fluid overload, Coumadin treatment. No significant hemoptysis since yesterday morning INR 1.6 this morning. Coumadin has been discontinued in face of hemoptysis. 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 Status: Acute (2) Pneumonia: CT chest demonstrated moderate effusion, left side and right lung pneumonia. Continue Zosyn currently Await MRSA PCR Patient with sepsis on admission Blood and sputum cultures pending. Status: Acute Qualifiers: Laterality: right Lung location: lower lobe of lung Pneumonia type: due to unspecified organism Qualified Code(s): J18.9 - Pneumonia, unspecified organism (3) ESRD (end stage renal disease): Nephrology consulted Appreciate help with diuresis in this patient with significant fluid overload. From nursing, it appears he may be getting dialysis again today which would significantly help his fluid status. Status: Chronic (4) DVT (deep venous thrombosis): Have statred him on Eliquis 5 mg every 12 daily. Status: Acute Qualifiers: DVT location: upper extremity Affected thrombotic vein of extremity: unspecified vein of extremity Chronicity: acute Laterality: right Qualified Code(s): I82.621 - Acute embolism and thrombosis of deep veins of right upper extremity (5) Hemochromatosis: Status: Chronic Qualifiers: Hemochromatosis type: unspecified Qualified Code(s): E83.119 - Hemochromatosis, unspecified (6) Idiopathic pulmonary hemosiderosis: Followed by pulmonary, on chronic steroids. Continuing steroids currently . Status: Chronic (7) COPD (chronic obstructive pulmonary disease): Continue oxygen. He relates he is typically on approximately 2 L. Continue breathing treatments Status: Chronic Qualifiers: COPD type: unspecified COPD Qualified Code(s): J44.9 - Chronic obstructive pulmonary disease, unspecified (8) Benign essential hypertension: Continue home meds Status: Chronic (9) Diabetes mellitus: Sliding scale insulin Status: Chronic Qualifiers: Diabetes mellitus type: type 2 Diabetes mellitus termite treater helper insulin use: without termite treater helper use Diabetes mellitus complication status: with kidney complications Diabetes mellitus complication detail: with chronic kidney disease Chronic kidney disease stage: on chronic dialysis Qualified Code(s): E11.22 - Type 2 diabetes mellitus with diabetic chronic kidney disease; N18.6 - End stage renal disease; Z99.2 - Dependence on renal dialysis (10) CHF NYHA class III (symptoms with mildly strenuous activities): Previous echo September 2019 with EF of 30% Status: Acute Qualifiers: Congestive heart failure type: combined Congestive heart failure chronicity: acute on chronic Qualified Code(s): I50.43 - Acute on chronic combined systolic (congestive) and diastolic (congestive) heart failure Additional A&P Information Abdominal discomfort. Continue Protonix. CT abdomen and pelvis on admission demonstrated stable infiltration of mesenteric fat and no other significant findings. Elevated troponin. Likely type II, patient without chest discomfort currently. History of coronary artery disease and stenting Imaging Studies: 2D echo: Done on 07/03: LVEF is severely reduced with EF of 30-35%. Compared to previous echo no significant changes are noted. CT abdomen and pelvis on admission demonstrated stable infiltration of mesenteric fat and no other significant findings. CT CHEST: Small to moderate left pleural effusion with compressive atelectasis in the left lower lobe. Pleural effusions have improved since . Tiny right pleural effusion.2.Wedge-shaped consolidative opacity right lower lobe measuring 2.7 x 3.5 cm. Recommend follow-up to resolution. 3.Diffuse hazy groundglass infiltrates throughout the right lung suspicious for pneumonia. Doppler vein bilateral upper extremity: Pending Microbiology: Blood cultures drawn on : No growth till date. SCDs for DVT prophylaxis Full code Probable transfer out of ICU if no issues with dialysis. Attestations Medical Necessity Statement*: She needs to be in hospital to continue with his pneumonia management as well as for work-up of DVT Coding Level of Care Code Acute Product Builder for Chg Fwd Diagnoses Hemoptysis R04.2 Pneumonia J18.9 Laterality: right Lung location: lower lobe of lung Pneumonia type: due to unspecified organism ESRD (end stage renal disease) N18.6 DVT (deep venous thrombosis) I82.621 DVT location: upper extremity Affected thrombotic vein of extremity: unspecified vein of extremity Chronicity: acute Laterality: right Hemochromatosis E83.119 Hemochromatosis type: unspecified Idiopathic pulmonary hemosiderosis J84.03 COPD (chronic obstructive pulmonary disease) J44.9 COPD type: unspecified COPD Benign essential hypertension I10 Diabetes mellitus E11.22; N18.6; Z99.2 Diabetes mellitus type: type 2 Diabetes mellitus termite treater helper insulin use: without termite treater helper use Diabetes mellitus complication status: with kidney complications Diabetes mellitus complication detail: with chronic kidney disease Chronic kidney disease stage: on chronic dialysis CHF NYHA class III (symptoms with mildly strenuous activities) I50.43 Congestive heart failure type: combined Congestive heart failure chronicity: acute on chronic
--- NOTE | 2020-07-04 10:00 | PC.NURSE ---
c/o some chest discomfort. states it has never gone away since admission
--- NOTE | 2020-07-04 12:09 | P.PN_ITS ---
Subjective Subjective: Interval history: Patient reported improvement in symptoms. Had slight hemoptysis yesterday night and nonspecific chest pain. Cardiology consulted. Currently getting for over hemodialysis. Scheduled for another session tomorrow. Overall looks clinically improving, saturating 96% on 2 L Medications: Reviewed: Yes Medication Review Details: metoprolol tartrate ordered daily Vitals/I&O/Wt Last Vital Signs Temp 98 F 07/04/20 01:00 Pulse 58 L 07/04/20 06:00 Resp 14 07/04/20 06:00 BP 118/70 07/04/20 06:00 Pulse Ox 96 07/04/20 06:00 07/03/20 07/04/20 07/04/20 22:59 06:59 14:59 Intake Total 300 / 1121.458 750 / 1871.458 Output Total 50 / 50 Balance 250 / 1071.458 750 / 1821.458 Weight last 48 hrs Weight 229 lb Weight 226 lb 11.2 oz Physical Exam Narrative: EXAM NARRATIVE: General: alert, NAD HEENT: conj clear, EOMI, PERRL, mmm, Neck: supple, no meningismus Heme: no cervical LAP Pulmonary: CTAB, no wheezing, rhonchi, crackles Cardiovascular: rrr, nl s1s2, no mrg Abdomen: soft, nt, nd, no r/g, bs+ Extremities: pulses + 2+ edema, no c/c : no CVA tenderness Skin: intact, no rash MSK: no back or neck pain Neurologic: grossly intact Data : 07/04/20 04:30 07/04/20 04:30 Micro: Microbiology 07/03/20 08:30 Gram Stain - Final Sputum - Expectorated Sputum Sputum Culture - Preliminary 07/03/20 06:35 Blood Culture - Preliminary Blood NEGATIVE TO DATE 07/03/20 06:40 Blood Culture - Preliminary Blood NEGATIVE TO DATE 07/01/20 23:05 Blood Culture - Preliminary Blood Gram positive cocci 07/02/20 18:40 MRSA Culture - Final Nose A&P Assessment and plan (1) Idiopathic pulmonary hemosiderosis: Status: Chronic (2) ESRD (end stage renal disease): Status: Chronic (3) Sepsis: Status: Acute Qualifiers: Sepsis acute organ dysfunction status: with acute organ dysfunction Se psis type: sepsis due to unspecified organism Severe sepsis acute organ dy sfunction type: unspecified Severe sepsis shock status: without septic shock Qualified Code(s): A41.9 - Sepsis, unspecified organism; R65.20 - Severe sepsis without septic shock (4) DVT (deep venous thrombosis): Status: Acute Qualifiers: DVT location: upper extremity Affected thrombotic vein of extremity: unspecified vein of extremity Chronicity: acute Laterality: right Qualified Code(s): I82.621 - Acute embolism and thrombosis of deep veins of right upper extremity (5) Hemochromatosis: Status: Chronic Qualifiers: Hemochromatosis type: unspecified Qualified Code(s): E83.119 - Hemochromatosis, unspecified (6) Pneumonia: Status: Acute Qualifiers: Laterality: right Lung location: lower lobe of lung Pneumonia type: due to unspecified organism Qualified Code(s): J18.9 - Pneumonia, unspecified organism (7) Hemoptysis: Status: Acute (8) Pleural effusion: Status: Acute #Hemoptysis-secondary to? DAH due to underlying idiopathic pulmonary hemosiderosis and diagnosed with hemochromatosis and on anticoagulation with warfarin for upper extremity DVT diagnosed in May [address] [facility] -Chronic hemoptysis for last 2 years; On steroids recently and improved shortness of breath and hemoptysis during last clinic visit on 06/10/2020 -Around the same time patient was started on warfarin after being diagnosed with upper extremity DVT in [facility] which could have contributed to worsening of hemoptysis in the last couple of days -No more episodes since admission except scant hemoptysis yesterday night -Warfarin held and INR today 1.57; will start on Eliquis 5 twice daily -Currently on prednisone 20 mg twice daily -Saturating 97% on 3 n L, improved since admission - #Shortness of breath could be likely due to fluid overload from ESRD-cannot rule out underlying sepsis due to pneumonia #Chronic bilateral pleural effusions left > right -overall improved compared to previous CT -CT 07/02/2020:Small to moderate left pleural effusion with compressive atelectasis in the left lower lobe. Pleural effusions have improved since 09/2019. Tiny right pleural effusion. -Underlying pneumonia cannot be excluded especially with procalcitonin 1.10 and a consolidative patch on right lower lobe and CT -Currently covered with Zosyn -Blood cultures pending -gram-positive cocci in 1/4 bottle, awaiting for final culture- likely contamination -sputum culture pending -Leukocytosis could be due to steroids-monitor for fevers and worsening of leukocytosis -At this point pleural effusion thought to be secondary to ESRD and should improve with dialysis #Upper extremity DVT on warfarin started mid May 2020 -Held warfarin in view of worsening hemoptysis -will start Eliquis 5 mg p.o. twice daily -If possible obtain upper extremity Doppler studies done at [facility] -At this point weighing risks versus benefits patient is high risk of developing diffuse DAH on anticoagulation and percent upper extremity DVT and can develop PE if not on anticoagulation. -Explained in detail about risks versus benefits with patient and started on Eliquis 5 mg p.o. twice daily and will observe while he is in the hospital and pulmonary clinic 1 week after discharge. -Educated patient to stop anticoagulation if he sees increase in hemoptysis Overall patient seems to be clinically improving with dialysis and fluid removal. Would recommend to continue steroids 20 twice daily, Eliquis 5 mg p.o. twice daily. Patient will follow-up with Dr. Macias in pulmonary clinic after discharge for idiopathic pulmonary hemosiderosis. Attestations Medical Necessity Statement*: Respiratory distress secondary to fluid overload from ESRD in a patient with underlying pulmonary hemosiderosis and hemoptysis with possible DAH Coding Level of Care Code Established Pt Acute Sexual Health Physician for Chg Fwd Patient Type Established History Detailed Exam Comprehensive Medical Decision Making Moderate Complexity Diagnoses Idiopathic pulmonary hemosiderosis J84.03 ESRD (end stage renal disease) N18.6 Sepsis A41.9; R65.20 Sepsis acute organ dysfunction status: with acute organ dysfunction Sepsis type: sepsis due to unspecified organism Severe sepsis acute organ dysfunction type: unspecified Severe sepsis shock status: without septic shock DVT (deep venous thrombosis) I82.621 DVT location: upper extremity Affected thrombotic vein of extremity: unspecified vein of extremity Chronicity: acute Laterality: right Hemochromatosis E83.119 Hemochromatosis type: unspecified Pneumonia J18.9 Laterality: right Lung location: lower lobe of lung Pneumonia type: due to unspecified organism Hemoptysis R04.2 Pleural effusion J90 Time Spent (min) 45
--- NOTE | 2020-07-04 12:36 | PM.PN ---
Subjective Subjective: Interval history: Had chest pain towards end of dialysis yesterday. Seen by cardiology. Today diffuse muscle aches. Completed HD with UF 2500 ml today. Left arm is more swollen. History of DVT right arm. Doppler ordered. Medications: Reviewed: Yes Vitals/I&O/Wt Last Vital Signs Temp 98 F 07/04/20 01:00 Pulse 58 L 07/04/20 06:00 Resp 14 07/04/20 06:00 BP 118/70 07/04/20 06:00 Pulse Ox 96 07/04/20 06:00 07/03/20 07/04/20 07/04/20 22:59 06:59 14:59 Intake Total 300 / 1121.458 750 / 1871.458 Output Total 50 / 50 Balance 250 / 1071.458 750 / 1821.458 Weight last 48 hrs Weight 103.873 kg Weight 102.829 kg Physical Exam Const: COMMON NORMALS: no acute distress GENERAL APPEARANCE: cooperative Extremity: GENERAL: Yes edema Data : 07/04/20 04:30 07/04/20 04:30 Micro: Microbiology 07/03/20 08:30 Gram Stain - Final Sputum - Expectorated Sputum Sputum Culture - Preliminary 07/03/20 06:35 Blood Culture - Preliminary Blood NEGATIVE TO DATE 07/03/20 06:40 Blood Culture - Preliminary Blood NEGATIVE TO DATE 07/01/20 23:05 Blood Culture - Preliminary Blood Gram positive cocci 07/02/20 18:40 MRSA Culture - Final Nose Other data: ECHO: EF 355, severe global hypokinesis A&P Additional A&P Information 1. ESRD, volume overload. HD today 2.5L removed. Need to apply antibiotic ointment to buttonholes after HD (prophylaxis). 3K bath, HD again Tuesday. Furosemide changed to torsemide 100 mg daily. Not much change in urine output. Fluid restrict 2. Hyperphosphatemia, hypocalcemia. renvela and tums started, repeat labs 4. Hypertension, well-controlled 6. Anemia - reports he was not receiving epogen as outpatient Attestations Medical Necessity Statement*: per primary service Time Spent in Patient Care: 16 - 35 minutes Coding Level of Care Code Acute Stator Connector for Ger Godfrey
--- NOTE | 2020-07-04 12:46 | PC.NURSE ---
bactroban given per dialysis nursekianna
[2020-07-04] MEDS: docusate sodium 100 mg Capsule PO ×2 (14:12→14:15)
[2020-07-04] MEDS: apixaban 5 mg Tablet PO (14:39)
--- NOTE | 2020-07-04 15:31 | PC.NURSE ---
transferred to [facility]. noted left arm very swollen. pt. states it is not usually that swollen. stated it felt tight
--- NOTE | 2020-07-04 15:45 | PC.NURSE ---
From ICU Pt came as ICU transfer via wheelchair. Pt is alert, oriented, reported of tightness, cramping sensation and swelling on left arm. Noted significant redness, pitting edema 2-3+ on left forearm up to left upper arm. Pt has AV fistula located on left forearm. Dressing is dry, intact, no bleeding outside but edema and redness and warmth noted. Thrill palpated and bruit heard via stethoscope. Notified Dr. Arana in person regarding pt's changes on his left arm per assessment. He came at bedside, re-assess arm and received orders to get a stat US Doppler. Will keep monitoring for increasing swelling, pain on left arm.
--- NOTE | 2020-07-04 15:50 | PC.NURSE ---
Left upper arm elevated with 2 pillows to decrease swelling CLAUDIA staff in room to check his Bilat arms for dvt.
--- NOTE | 2020-07-04 15:51 | USR_ITS ---
PROCEDURE INFORMATION: Exam: US Duplex Upper Extremity Veins Exam date and time: 07/04/2020 4:00 PM Age: 50 years old Clinical indication: Edema, localized; Upper extremity, left; Additional info: Swelling and cramping on left upper arm TECHNIQUE: Imaging protocol: Real-time Duplex ultrasound of the Upper Extremities with 2-D stewart scale, color Doppler flow and spectral waveform analysis with image documentation. Complete exam focused on the bilateral upper extremity veins. COMPARISON: No relevant prior studies available. FINDINGS: Right deep veins: Unremarkable. Axillary and brachial veins are patent throughout without thrombus. Normal Doppler waveforms. Normal compressibility and/or augmentation response. Visualized internal jugular and subclavian veins are patent. Right superficial veins: There is occlusive superficial thrombus in the right cephalic and right basilic veins. Left deep veins: There is a fistula at the patient's left wrist. The fistula is patent. Left superficial veins: Unremarkable. Visualized cephalic and basilic veins are patent without thrombus. Soft tissues: Unremarkable. US/[place] [id number] IMPRESSION: 1. There is occlusive superficial thrombus in the right cephalic and right basilic veins. 2. No evidence for deep venous thrombosis. 3. There is a fistula at the patient's left wrist. The fistula is patent.
[2020-07-04 17:16] LABS: Glucose Point of Care 244 mg/dL (70-110)
[2020-07-04 19:19] LABS: Glucose Point of Care 121 mg/dL (70-110)
[2020-07-04 19:20] LABS: Glucose Point of Care 139 mg/dL (70-110)
[2020-07-04] MEDS: amlodipine 10 mg Tablet PO (20:59)
[2020-07-04] MEDS: atorvastatin 40 mg Tablet PO (20:59)
[2020-07-04 21:00] LABS: Glucose Point of Care 200 mg/dL (70-110)
--- NOTE | 2020-07-04 21:14 | PC.NURSE ---
Patient resting in bed at this time, earlier in shift approximately 1999 Dr. Arana was present at nurses station and wanted to continue to monitor the left extremities for increased swelling. Staff aware. Ultrasound performed earlier and according to results no DVT's are present. Fistula is located in left wrist, thrill and bruit present. Patient did report generalized pain and PRN pain medication was given per orders. Continue care.
--- NOTE | 2020-07-04 21:18 | PC.NURSE ---
RT was helping patient back to bed after using restroom and noted a decrease in O2 saturation levels from exertion. RT reported patient did cough up small blood tinged clots/sputum.
[2020-07-05 00:21] VITALS: RESP 13
[2020-07-05] MEDS: apixaban 5 mg Tablet PO (00:21)
[2020-07-05] MEDS: oxyCODONE-APAP 10-325 mg Tablet 1 TAB PO (00:21)
[2020-07-05] MEDS: piperacillin-tazobactam 3.375 GM in sodium chloride 0.9% (plus) 50 ML IV (01:22)
[2020-07-05] MEDS: nitroglycerin 1 gm/inch oint Pkt 0.5 INCH TOPICAL (01:22)
[2020-07-05 03:00] VITALS: BP 144/91; PULSE 63; RESP 10; TEMP 36.7; O2SAT 98
--- NOTE | 2020-07-05 05:21 | PC.NURSE ---
Patient resting quietly in room with eyes shut. No changes in condition noted so far thus shift. left arm still has edema noted but no increase; arm is still elevated on pillows to help decrease edema. Continue care.
[2020-07-05] MEDS: pantoprazole DR 40 mg Tablet PO (05:32)
[2020-07-05 06:12] LABS: Basophils % 0.1 %; Eosinophils % 0.2 %; Hematocrit 29.9 % (42.0-52.0); Lymphocytes # 0.2 10^3/uL (0.8-4.8); Lymphocytes % 2.3 %; Mean Corpuscular HGB Conc 30.1 g/dL (30.0-36.0); Mean Corpuscular Hemoglobin 32.6 pg (28.0-34.0); Mean Corpuscular Volume 108.3 fL (80-94); Monocytes # 0.6 10^3/uL (0.2-0.9); Monocytes % 5.4 %; Neutrophils # 9.65 10^3/uL (1.8-7.7); Neutrophils % 91.4 %; Nucleated Red Blood Cells % 0.2 %; Platelet Count 104 10^3/cmm (130-400); Red Blood Count 2.76 10^6/uL (4.1-5.3); Red Cell Distribution Width 16.5 % (12.1-15.1); White Blood Count 10.6 10^3/uL (4.0-10.0)
[2020-07-05 06:36] LABS: Glucose Point of Care 149 mg/dL (70-110)
[2020-07-05 06:47] LABS: Anion Gap 20.4 (5-19); Blood Urea Nitrogen 52 mg/dL (6-20); Calcium 7.1 mg/dL (8.5-10.5); Carbon Dioxide 23 mmol/L (22-29); Chloride 96 mmol/L (98-107); Glomerular Filtration Rate 14.3 mL/min (90-130); Glucose 135 mg/dL (65-115); Osmolality Calculated 278 mOsm/kg (285-295); Potassium 5.4 mmol/L (3.5-5.1); Sodium 134 mmol/L (136-145)
[2020-07-05 07:00] VITALS: BP 140/87; PULSE 64; RESP 13; TEMP 36.8; O2SAT 97
--- NOTE | 2020-07-05 07:46 | P.PN_ITS ---
Subjective Subjective: Interval history: Feels a little better today. Asking about discharge. Medications: Reviewed: Yes Vitals/I&O/Wt Last Vital Signs Temp 98.3 F 07/05/20 07:00 Pulse 64 07/05/20 07:00 Resp 13 07/05/20 07:00 BP 140/87 07/05/20 07:00 Pulse Ox 97 07/05/20 07:00 07/04/20 07/05/20 07/05/20 22:59 06:59 14:59 Intake Total 890 / 1310 170 / 1480 Balance 890 / 1310 170 / 1480 Weight last 48 hrs Weight 104.326 kg Weight 103.873 kg Physical Exam Const: COMMON NORMALS: no acute distress GENERAL APPEARANCE: cooperative Resp: COMMON NORMALS: normal respiratory effort and clear to auscultation bilaterally AUSCULTATION: clear to auscultation bilaterally Cardio: COMMON NORMALS: regular rate and regular rhythm RATE: regular rate RHYTHM: regular rhythm Extremity: GENERAL: Yes edema (both LE, LUE) OTHER: left forearm AVF + strong bruit Data : 07/05/20 05:26 07/05/20 05:26 Other Labs: calcium 7.1, albumin 3.2, phos 6.2, Mg 2.3 Micro: Microbiology 07/01/20 23:05 Blood Culture - Preliminary Blood Coagulase negativ staphylococc 07/03/20 08:30 Gram Stain - Final Sputum - Expectorated Sputum Sputum Culture - Preliminary 07/03/20 06:35 Blood Culture - Preliminary Blood NEGATIVE TO DATE 07/03/20 06:40 Blood Culture - Preliminary Blood NEGATIVE TO DATE Other data: UE doppler chronic RUE DVT, no LUE thrombus A&P Additional A&P Information 1. ESRD, volume overload. HD today goal 2.5L fluid removal. Need to apply antibiotic ointment to buttonholes after HD (prophylaxis). 2K bath.Continue torsemide 100 mg daily and Fluid restriction. Instructed to discuss with his outpatient vacuum evaporation operator increasing frequency and/or duration HHD 2. Hyperphosphatemia, hypocalcemia. renvela and tums started, improved 4. Hypertension, well-controlled 6. Anemia - reports he was not receiving epogen as outpatient, Hb stable Attestations Medical Necessity Statement*: per primary service Time Spent in Patient Care: 16 - 35 minutes Coding Level of Care Code Acute Chip Person for Ger Godfrey
[2020-07-05 07:57] LABS: Magnesium 2.3 mg/dL (1.7-2.3); Phosphorus 6.2 mg/dL (2.5-4.5)
--- NOTE | 2020-07-05 08:30 | PC.SOCIAL ---
IMM Page 2 of IMM explained to and signed by patient. Initialed, dated, and timed and placed in chart. Copy provided to patient.
--- NOTE | 2020-07-05 09:00 | PC.NURSE ---
Patient taken to dialusis room.
--- NOTE | 2020-07-05 13:02 | PM.DCS ---
Discharge Providers Date of Admission: 07/02/20 00:40 Date of Discharge: July 05, 2020 Attending Provider at Admission: Domitila Aburto MD Attending Provider at Discharge: Lokesh Arana MD Primary Care Provider: Michael Eubanks DO Diagnoses at Discharge Discharge Diagnosis (1) Hemoptysis: Status: Resolved (2) Pneumonia: Status: Acute Qualifiers: Laterality: right Lung location: lower lobe of lung Pneumonia type: due to unspecified organism Qualified Code(s): J18.9 - Pneumonia, unspecified organism (3) ESRD (end stage renal disease): Status: Chronic (4) DVT (deep venous thrombosis): Status: Acute Qualifiers: Affected thrombotic vein of extremity: unspecified vein of extremity Chronicity: acute DVT location: upper extremity Laterality: right Qualified Code(s): I82.621 - Acute embolism and thrombosis of deep veins of right upper extremity (5) Hemochromatosis: Status: Chronic Qualifiers: Hemochromatosis type: unspecified Qualified Code(s): E83.119 - Hemochromatosis, unspecified (6) Idiopathic pulmonary hemosiderosis: Status: Chronic (7) COPD (chronic obstructive pulmonary disease): Status: Chronic Qualifiers: COPD type: unspecified COPD Qualified Code(s): J44.9 - Chronic obstructive pulmonary disease, unspecified (8) Benign essential hypertension: Status: Chronic (9) Diabetes mellitus: Status: Chronic Qualifiers: Chronic kidney disease stage: on chronic dialysis Diabetes mellitus complication detail: with chronic kidney disease Diabetes mellitus complication status: with kidney complications Diabetes mellitus senior care insulin use: without termite treater use Diabetes mellitus type: type 2 Qualified Code(s): E11.22 - Type 2 diabetes mellitus with diabetic chronic kidney disease; N18.6 - End stage renal disease; Z99.2 - Dependence on renal dialysis (10) CHF NYHA class III (symptoms with mildly strenuous activities): Status: Acute Qualifiers: Congestive heart failure chronicity: acute on chronic Congestive heart failure type: combined Qualified Code(s): I50.43 - Acute on chronic combined systolic (congestive) and diastolic (congestive) heart failure Reason for Visit Reason for Visit: been spitting blood all day / trouble breath Hospital Course Hospital Course: 50 year old male with PMHx of pulmonary hypertension, hemochromatosis, idiopathic pulmonary hemosiderosis, end-stage renal disease on hemodialysis on Tuesday, Tuesday, Tuesday, Tuesday, recent diagnosis of right upper extremity DVT and on anticoagulation with Coumadin.presents with complaints of coughing up blood particularly over the past 1 to 2 days, ongoing and progressive shortness of breath even at rest to the point where he has to consistently use his oxygen, and ongoing generalized swelling. He reports having had some degree of hemoptysis for approximately 2 years and has been on chronic steroids for idiopathic pulmonary hemosiderosis.However over the past 1 to 2 days prior to the hospitalization he was having significant productive cough with increasing hemoptysis. During this hospital stay he was managed for hospital-acquired pneumonia he was kept on Zosyn. Pulmonary was consulted for ongoing for hemoptysis. According to the pulmonary no acute intervention was needed at this point of time. We changed his Coumadin to Eliquis. His hemoglobin was still. There was no need for transfusion. He received multiple sessions of Hemodialysis for volume overload. Cardiology was also consulted because he was complaining some ongoing intermittent chest pain. According to cardiology it was type II AL they recommended to continue with conservative management. During this hospital stay 2D echo was done: Which failed to show any significant change as compared to the prior study. Blood culture showed no growth. Antibiotics were discontinued upon the discharge. Patient is being discharged under stable. He will continue to follow-up with his primary care physician as well as pulmonary as an outpatient. Physical Exam Narrative: EXAM NARRATIVE: COMMON NORMALS: no acute distress GENERAL APPEARANCE: cooperative Resp COMMON NORMALS: normal respiratory effort and clear to auscultation bilaterally AUSCULTATION: clear to auscultation bilaterally Cardio COMMON NORMALS: regular rate and regular rhythm RATE: regular rate RHYTHM: regular rhythm Extremity GENERAL: Yes edema (both LE, LUE) OTHER: left forearm AVF + strong bruit Discharge Data Data Completed and Pending: Completed Studies During Hospitalization Category Date Time Status CT chest wo con 7 1250 Routine Cat Scan 07/02/20 02:40 Completed XR chest 1V melva ble [id number] Urgent Exams 07/01/20 22:47 Completed CV echo complete* [id number] Routine Ultrasound 07/03/20 13:58 [place] [id number] Stat Ultrasound 07/04/20 15:51 Completed Pending at discharge Category Date Time Status Blood Culture Sta t Lab 07/01/20 23:08 Results Blood Culture Sta t Lab 07/03/20 06:35 Results Sputum Culture an d Gram Stain Marsha ne Lab 07/03/20 09:50 Uncollected Labs from last 24 hours 07/05/20 07/05/20 07/05/20 06:28 05:26 05:26 WBC 10.6 H RBC 2.76 L Hgb 9.0 L Hct 29.9 L MCV 108.3 H MCH 32.6 MCHC 30.1 RDW 16.5 H Plt Count 104 L MPV 11.0 H Neut % (Auto) 91.4 Lymph % (Auto) 2.3 Randolph % (Auto) 5.4 Eos % (Auto) 0.2 Baso % (Auto) 0.1 Neut # (Auto) 9.65 H Lymph # (Auto) 0.2 L Randolph # (Auto) 0.6 Eos # (Auto) 0.0 Baso # (Auto) 0.0 Nucleated RBC % (a uto) 0.2 Nucleated RBCs # 0.0 Sodium 134 L Potassium 5.4 H Chloride 96 L Carbon Dioxide 23 Anion Gap 20.4 H BUN 52 H Creatinine 4.4 H GFR Calculation 14.3 L Glucose 135 H POC Glucose 149 Calculated Osmolal ity 278 L Calcium 7.1 L Phosphorus Magnesium 07/05/20 07/04/20 07/04/20 05:26 20:47 17:08 WBC RBC Hgb Hct MCV MCH MCHC RDW Plt Count MPV Neut % (Auto) Lymph % (Auto) Randolph % (Auto) Eos % (Auto) Baso % (Auto) Neut # (Auto) Lymph # (Auto) Randolph # (Auto) Eos # (Auto) Baso # (Auto) Nucleated RBC % (a uto) Nucleated RBCs # Sodium Potassium Chloride Carbon Dioxide Anion Gap BUN Creatinine GFR Calculation Glucose POC Glucose 200 244 Calculated Osmolal ity Calcium Phosphorus 6.2 H Magnesium 2.3 07/04/20 07/04/20 12:08 07:17 WBC RBC Hgb Hct MCV MCH MCHC RDW Plt Count MPV Neut % (Auto) Lymph % (Auto) Randolph % (Auto) Eos % (Auto) Baso % (Auto) Neut # (Auto) Lymph # (Auto) Randolph # (Auto) Eos # (Auto) Baso # (Auto) Nucleated RBC % (a uto) Nucleated RBCs # Sodium Potassium Chloride Carbon Dioxide Anion Gap BUN Creatinine GFR Calculation Glucose POC Glucose 139 121 Calculated Osmolal ity Calcium Phosphorus Magnesium Vitals: Last Vital Signs Temp 98.3 F 07/05/20 07:00 Pulse 64 07/05/20 07:00 Resp 13 07/05/20 07:00 BP 140/87 07/05/20 07:00 Pulse Ox 97 07/05/20 07:00 Discharge Plan Discharge Patient Disposition: Home Condition: Stable Prescriptions: New Eliquis 5 mg tablet 5 mg PO Q12H Qty: 60 RF: 0 Continued promethazine 12.5 mg tablet 12.5 mg PO Q6H PRN (Reason: Nausea) RF: 0 aspirin 81 mg tablet,delayed release (DR/EC) 81 mg PO DAILY RF: 0 nitroglycerin [Nitrostat] 0.4 mg tablet, sublingual 0.4 mg SUBLINGUAL Q5M PRN (Reason: Pain) RF: 0 furosemide [Lasix] 20 mg tablet 60 mg PO QAM RF: 0 amlodipine 10 mg tablet 10 mg PO BEDTIME RF: 0 metoprolol tartrate 50 mg tablet 50 mg PO DAILY RF: 0 oxycodone-acetaminophen 5-325 mg tablet 1 tab PO Q6H PRN (Reason: Moderate To Severe Pain) 7 Days Qty: 28 RF: 0 losartan 25 mg tablet 25 mg PO DAILY Qty: 90 RF: 3 clonidine HCl 0.1 mg Tablet 0.1 mg PO DAILY PRN (Reason: Hypertension) RF: 0 clonazepam 0.5 mg tablet See Rx Instructions .ROUTE .COMPLEX RF: 0 lidocaine-prilocaine 2.5-2.5 % cream See Rx Instructions .ROUTE .COMPLEX RF: 0 calcitriol 0.5 mcg capsule See Rx Instructions .ROUTE .COMPLEX RF: 0 gabapentin 100 mg Capsule 100 mg PO BID RF: 0 Heparin Injection See Rx Instructions .ROUTE .COMPLEX RF: 0 pantoprazole 40 mg tablet,delayed release (DR/EC) 40 mg PO QAM RF: 0 prednisone 20 mg tablet 20 mg PO BID RF: 0 RenaPlex-D 800 mcg-12.5 mg -2,000 unit tablet See Rx Instructions .ROUTE .COMPLEX RF: 0 Discontinued warfarin 5 mg tablet 2.5 mg PO DAILY RF: 0 Discharge Orders: Discharge Order (Routine); Ordered 07/05/20 Ordered By: Lokesh Arana Referrals: Keanu Macias MD [Physician] - 1 week ([facility] will be calling to schedule a pulmonology appointment with Dr. Macias to be seen in 1 week. If you don't hear from them by Tuesday afternoon, please give them a call. Thank you) Michael Eubanks, DO [Primary Care Provider] - 7-10 days ([facility] will be caling to schedule a hospital followup with Dr. Eubanks to be seen in 7 to 10 days. If you don't hear from them by Tuesday afternoon, please give them a call. Thank you ) Discharge Diet: Usual diet Discharge Activity: Resume usual activity Patient Instructions: Apixaban (By mouth), Acute Hemoptysis (DC), Community-acquired Pneumonia (DC) Discharge Attestations Time Spent in Discharge Care*: greater than 30 min Specific Discharge Activities: Specific discharge activities: educating patient, educating and/or supporting family/caregiver, discussing with pcp/other providers, discussing with clinical case manager/social workers/dc planners, documenting/other paperwork and evaluating patient/reviewing data Status at Discharge: Cognitive status at discharge: cognitively intact, Behavioral status at discharge: cooperative and independent in ADL's, Quality Metrics Clinical Quality Measures During this hospital stay, did patient experience: None Coding Level of Care Code Acute Director Of Graduate Medical Education for Chg Fwd Diagnoses Hemoptysis R04.2 Pneumonia J18.9 Laterality: right Lung location: lower lobe of lung Pneumonia type: due to unspecified organism ESRD (end stage renal disease) N18.6 DVT (deep venous thrombosis) I82.621 Affected thrombotic vein of extremity: unspecified vein of extremity Chronicity: acute DVT location: upper extremity Laterality: right Hemochromatosis E83.119 Hemochromatosis type: unspecified Idiopathic pulmonary hemosiderosis J84.03 COPD (chronic obstructive pulmonary disease) J44.9 COPD type: unspecified COPD Benign essential hypertension I10 Diabetes mellitus E11.22; N18.6; Z99.2 Chronic kidney disease stage: on chronic dialysis Diabetes mellitus complication detail: with chronic kidney disease Diabetes mellitus complication status: with kidney complications Diabetes mellitus termite treater insulin use: without termite treater use Diabetes mellitus type: type 2 CHF NYHA class III (symptoms with mildly strenuous activities) I50.43 Congestive heart failure chronicity: acute on chronic Congestive heart failure type: combined
--- NOTE | 2020-07-05 13:58 | PC.NURSE ---
Patient returned from dialysis to room 102.
[2020-07-05 15:00] VITALS: BP 140/90; PULSE 80; RESP 18; TEMP 36.6; O2SAT 95
[2020-07-05 15:40] VITALS: BP 140/90; PULSE 80; RESP 18; TEMP 36.6; O2SAT 95
== END 2020-07-05 16:00 | disposition home or self-care (01) | DRG 871 ==
LOC: ER 07-02 00:41 → ICU 07-02 01:20 → CSU 07-04 15:04
PROVIDERS: Emergency Medicine; Internal Medicine; Internal Medicine Nephrology; Admitting Provider Family Medicine; PCP Internal Medicine; Visit Provider Internal Medicine
DX: A41.9 Sepsis, unspecified organism (principal); I50.43 Acute on chronic combined systolic (congestive) and diastolic (congestive) heart failure; N18.6 End stage renal disease; I21.A1 Myocardial infarction type 2; J18.9 Pneumonia, unspecified organism; R04.2 Hemoptysis; J84.03 Idiopathic pulmonary hemosiderosis; I13.2 Hypertensive heart and chronic kidney disease with heart failure and with stage 5 chronic kidney disease, or end stage renal disease; I42.9 Cardiomyopathy, unspecified; J44.0 Chronic obstructive pulmonary disease with (acute) lower respiratory infection; I82.621 Acute embolism and thrombosis of deep veins of right upper extremity; R65.20 Severe sepsis without septic shock; Z99.81 Dependence on supplemental oxygen; I27.20 Pulmonary hypertension, unspecified; E83.119 Hemochromatosis, unspecified; E11.22 Type 2 diabetes mellitus with diabetic chronic kidney disease; Z99.2 Dependence on renal dialysis; Z79.01 Long term (current) use of anticoagulants; Z79.52 Long term (current) use of systemic steroids; I25.10 Atherosclerotic heart disease of native coronary artery without angina pectoris; Z95.5 Presence of coronary angioplasty implant and graft; E78.2 Mixed hyperlipidemia; Z87.891 Personal history of nicotine dependence; I25.2 Old myocardial infarction; Z79.82 Long term (current) use of aspirin; E83.51 Hypocalcemia; D69.6 Thrombocytopenia, unspecified
CPT/HCPCS: 12345; 36415; 36416; 36600; 71045; 71250; 80048; 80053; 82310; 82728; 82803; 82962; 83036; 83540; 83550; 83605; 83735; 83880; 83970; 84100; 84145; 84484; 85025; 85610; 86706; 86803; 87040; 87070; 87205; 87340; 87426; 87641; 90935; 93005; 93306; 93970; 94660; 96372; 96375; 99284; J1170; J1815; J1940; J2405; J2543; J2930; J3370; J7050; J7512; Q3014

== ENCOUNTER → 2020-08-26 10:12 | Outpatient (BNVA) | payer MEDICARE, MEDICAID, SELFPAY | PROVIDERS: PCP Internal Medicine; Visit Provider Internal Medicine Critical Care Medicine | DX: J84.03 Idiopathic pulmonary hemosiderosis (principal) | CPT/HCPCS: 80053; 85007; 85027 ==

== ENCOUNTER → 2020-09-25 08:54 | Outpatient (BNVA) | payer MEDICARE, MEDICAID, SELFPAY | PROVIDERS: PCP Internal Medicine; Visit Provider Internal Medicine Critical Care Medicine | DX: J84.03 Idiopathic pulmonary hemosiderosis (principal); R74.8 Abnormal levels of other serum enzymes | CPT/HCPCS: 80053; 85025 ==

== ENCOUNTER → 2020-10-28 09:52 | Outpatient (BNVA) | payer MEDICARE, MEDICAID, SELFPAY | PROVIDERS: PCP Internal Medicine; Visit Provider Internal Medicine Critical Care Medicine | DX: J84.03 Idiopathic pulmonary hemosiderosis (principal) | CPT/HCPCS: 80053; 85025 ==

== ENCOUNTER 2020-11-18 14:39 | Emergency (ER) | payer MEDICARE, MEDICAID, SELFPAY ==
[2020-11-18 14:47] VITALS: BP 130/82; PULSE 94; RESP 22; TEMP 36.6; O2SAT 88; BMI 27.1
--- NOTE | 2020-11-18 15:09 | USCV_ITS ---
Marlon Dorantes Age: 50 Gender: M : 1970 Exam Date: 11/18/2020 15:01 Ordering Phys: Ramon Rojas DO Technologist: Sammy Liu Exam Location: [facility] [place] Indication: BLE PAIN AND SWELLING. ON BLOOD THINNERS FOR KNOWN RUE DVT HISTORY: Lower extremity swelling. Lower extremity pain. PROCEDURES: Venous duplex imaging was performed in bilateral lower extremities. The following venous structures were evaluated: common femoral vein, profunda vein, proximal portion of the greater saphenous vein, superficial femoral vein, and the popliteal vein. In addition, the posterior tibial veins were evaluated. In addition, the posterior tibial and peroneal trunk were evaluated. FINDINGS: No evidence of DVT seen in any vessel visualized at this time. CONCLUSIONS No evidence of right lower extremity DVT. No evidence of left lower extremity DVT. Johann Hdz MD (Electronically Signed) Final Date: 18 November 2020 17:17 S
--- NOTE | 2020-11-18 15:25 | W.ED.EXTPRO ---
HPI - Extremity Problem General: Chief complaint: Extremity Problem,Nontraumatic Stated complaint: possible clot right leg Time Seen by Provider: 11/18/20 14:56 History of Present Illness: HPI Narrative: 50-year-old male has a history of end-stage renal disease gets hemodialysis at home 4 days out of a week. He is on Eliquis he has a fistula in his left arm he has some bruising and swelling the swelling is not uncommon because of the bruising the nurse that hemodialysis thought he needed to be checked for a blood clot. He denies any chest pain under any shortness of breath. MD Complaint: extremity swelling (Lateral lower extremity) Onset (ago): day(s) Pain Consistency: intermittent Location: left, right and lower extremity Quality: aching Radiation: none Relieving factors: nothing Exacerbating factors: nothing Associated symptoms: Deny arthralgias, chest pain, fever(s), myalgias, rash or short of breath Review of Systems Const: Denies: fever(s) ENMT: Denies: throat pain, ear or mastoid pain, nasal discharge or nasal congestion Card: Denies: chest pain Resp: Denies: dyspnea, productive cough or non-productive cough GI: Denies: abdominal pain, nausea, vomiting, hematemesis, coffee ground emesis, diarrhea, constipation, bloating, hematochezia or melena : Denies: flank pain, dysuria, urinary frequency or urinary urgency Skin/Breast: Denies: rash PFSH ED PFSH: Medical History (Updated 11/18/20 @ 15:31 by Ramon Rojas DO) Atherosclerotic heart disease of [place] coronary artery without angina pectoris Benign essential hypertension Cardiomyopathy CHF NYHA class III (symptoms with mildly strenuous activities) COPD (chronic obstructive pulmonary disease) Diabetes mellitus DVT (deep venous thrombosis) Dyslipidemia ESRD (end stage renal disease) Fistula Left Wrist Headache Hemochromatosis Hemoptysis Hemoptysis Idiopathic pulmonary hemosiderosis Mixed hyperlipidemia Nicotine dependence, cigarettes, uncomplicated Non-ST elevation (NSTEMI) myocardial infarction Pleural effusion Pneumonia Pulmonary hypertension Right-sided chest pain Sepsis Surgical History H/O elbow surgery H/O hand surgery H/O neck surgery History of back surgery History of intravascular stent placement History of thoracotomy Family History Grandmother , In her 50's Myocardial infarction Father Diabetes Mother Diabetes Social History Smoking and tobacco status: former smoker Quit status (tobacco): has quit using tobacco Year quit tobacco: 1999 - 2PPD x 20 Years Second hand smoke exposure: No Alcohol intake: current Alcohol intake frequency: holidays/special occasions only Lives independently: Yes Household members: spouse Marital status: Current occupational status: disabled History of recent travel: No Current gender identity: Male Physical Exam Const: COMMON NORMALS: average body habitus, patient oriented x3 and alert GENERAL APPEARANCE: cooperative, comfortable, well kempt and well developed NUTRITIONAL APPEARANCE: obese ORIENTATION/CONSCIOUSNESS: Yes awake, Yes oriented to person and Yes oriented to place HENMT: COMMON NORMALS: normocephalic, atraumatic and EAC's normal HEAD & SCALP: normocephalic and atraumatic EXTERNAL AUDITORY CANAL: EAC's normal Neck/C-Spine: COMMON NORMALS: no meningeal signs Resp: COMMON NORMALS: normal respiratory effort, No retractions, No use of accessory muscles and clear to auscultation bilaterally AUSCULTATION: clear to auscultation bilaterally Cardio: COMMON NORMALS: regular rate and regular rhythm RATE: regular rate RHYTHM: regular rhythm HEART SOUNDS: no murmurs GI: COMMON NORMALS: Normal to inspection, nondistended, normoactive bowel sounds present, Soft to palpation and No hepatosplenomegaly present PALPATION: Yes Soft to palpation and Yes No hepatosplenomegaly present : COMMON NORMALS: Yes no CVA tenderness BLADDER/KIDNEY EXAM: Yes no CVA tenderness Back/Pelvis: COMMON NORMALS: no CVA tenderness LUMBAR SPINE/LOWER BACK: Yes normal to inspection Extremity: COMMON NORMALS: no clubbing, cyanosis or edema, no calf tenderness and no pedal edema Neuro: COMMON NORMALS: patient oriented x3 SENSORIUM/ORIENTATION: Yes alert, Yes oriented to person and Yes oriented to place MENINGEAL SIGNS: Yes no meningeal signs Psych: APPEARANCE: Yes well kempt Skin: COMMON NORMALS: no rashes or lesions noted and turgor normal GENERAL SKIN EXAM: no rashes or lesions noted and turgor normal Course Vital Signs: Vital signs: Vital Signs Temperature 97.8 F 01/26/21 14:47 Pulse Rate 89 11/18/20 15:47 Respiratory Rate 18 11/18/20 15:47 Blood Pressure 129/95 11/18/20 15:47 Pulse Oximetry 98 11/18/20 15:47 MDM - Extremity (Nontraumatic) MDM Narrative: Medical decision making narrative: Patient is on Eliquis. Venous duplex negative for [place] discharge home recommend he follow-up with his support technician to see if they are able to diurese some of the fluid off of him. Discharge Plan Discharge Patient Disposition: Home Clinical Impression: Lower extremity edema Condition: Stable Prescriptions: No Action promethazine 12.5 mg tablet 12.5 mg PO Q6H PRN (Reason: Nausea) RF: 0 aspirin 81 mg tablet,delayed release (DR/EC) 81 mg PO DAILY RF: 0 nitroglycerin [Nitrostat] 0.4 mg tablet, sublingual 0.4 mg SUBLINGUAL Q5M PRN (Reason: Pain) RF: 0 amlodipine 10 mg tablet 10 mg PO BEDTIME RF: 0 metoprolol tartrate 50 mg tablet 50 mg PO DAILY RF: 0 oxycodone-acetaminophen 5-325 mg tablet 1 tab PO Q6H PRN (Reason: Moderate To Severe Pain) 7 Days Qty: 28 RF: 0 bumetanide 2 mg tablet 4 mg PO BID RF: 0 prednisone 10 mg tablet 10 mg PO DAILY RF: 0 apixaban 2.5 mg tablet 2.5 mg PO BID 30 Days Qty: 60 RF: 4 fluticasone propionate [Flonase Allergy Relief] 50 mcg/actuation spray,suspension 1 spray intranasal BID 30 Days Qty: 15.8 RF: 2 losartan 25 mg tablet 25 mg PO DAILY Qty: 90 RF: 3 pantoprazole 40 mg tablet,delayed release (DR/EC) 40 mg PO QAM 90 Days Qty: 90 RF: 3 duloxetine 20 mg capsule,delayed release(DR/EC) See Rx Instructions .ROUTE .COMPLEX Qty: 60 RF: 3 azathioprine 50 mg tablet 50 mg PO DAILY 30 Days Qty: 30 RF: 3 clonazepam 0.5 mg tablet See Rx Instructions .ROUTE .COMPLEX RF: 0 lidocaine-prilocaine 2.5-2.5 % cream See Rx Instructions .ROUTE .COMPLEX RF: 0 calcitriol 0.5 mcg capsule See Rx Instructions .ROUTE .COMPLEX RF: 0 gabapentin 100 mg Capsule 100 mg PO BID RF: 0 Heparin Injection See Rx Instructions .ROUTE .COMPLEX RF: 0 RenaPlex-D 800 mcg-12.5 mg -2,000 unit tablet See Rx Instructions .ROUTE .COMPLEX RF: 0 Discharge Orders: Discharge ED (Routine); Ordered 11/18/20 Ordered By: Ramon Rojas Referrals: Michael Eubanks, [Primary Care Provider] - Discharge Diet: Usual diet Discharge Activity: Resume usual activity Activity Restrictions/Additional Instructions: No DVT noted. Continue your current medications follow-up with your primary care doctor or your support technician. Coding Level of Care Code ED Ct Scan Special Procedures Technologist for Ger Fwd Exam Comprehensive
[2020-11-18 15:47] VITALS: BP 129/95; PULSE 89; RESP 18; O2SAT 98
== END 2020-11-18 15:48 | disposition home or self-care (01) ==
PROVIDERS: Emergency Provider Family Medicine; PCP Internal Medicine
DX: R60.0 Localized edema (principal); Z79.82 Long term (current) use of aspirin; I25.10 Atherosclerotic heart disease of native coronary artery without angina pectoris; I13.2 Hypertensive heart and chronic kidney disease with heart failure and with stage 5 chronic kidney disease, or end stage renal disease; E11.22 Type 2 diabetes mellitus with diabetic chronic kidney disease; N18.6 End stage renal disease; I50.9 Heart failure, unspecified; Z99.2 Dependence on renal dialysis; Z79.01 Long term (current) use of anticoagulants; E78.2 Mixed hyperlipidemia; I25.2 Old myocardial infarction; Z87.891 Personal history of nicotine dependence
CPT/HCPCS: 12345; 93970; 99281; 99282

== ENCOUNTER → 2020-11-26 09:14 | Outpatient (BNVA) | payer MEDICARE, MEDICAID, SELFPAY | PROVIDERS: PCP Internal Medicine; Visit Provider Internal Medicine Critical Care Medicine | DX: J84.03 Idiopathic pulmonary hemosiderosis (principal); I27.20 Pulmonary hypertension, unspecified | CPT/HCPCS: 80053; 85025 ==

== ENCOUNTER → 2020-12-24 10:14 | Outpatient (BNVA) | payer MEDICARE, MEDICAID, SELFPAY | PROVIDERS: PCP Internal Medicine; Visit Provider Internal Medicine Critical Care Medicine | DX: J84.03 Idiopathic pulmonary hemosiderosis (principal); D64.9 Anemia, unspecified | CPT/HCPCS: 80053; 85025 ==

== ENCOUNTER 2020-12-25 14:39 | Outpatient (CLI) | payer MEDICARE, MEDICAID, SELFPAY ==
--- NOTE | 2020-12-25 14:44 | XR_ITS ---
WS: [id number] PA and lateral chest, 12/25/2020 Clinical Data: SOB Comparison: Portable chest, 07/02/2020. Findings: The left pleural effusion has increased moderately. The right pleural effusion remains the same. The heart is enlarged. The bilateral pulmonary opacities have diminished moderately. The aortic arch and descending aorta show calcification and tortuosity. The patient has had a lower cervical di sc fusion. XR/XR chest 2V* [id number] Impression: 1. Slight increase in left pleural effusion. 2. Decrease in bilateral pulmonary opacities. 3. No change in small right effusion and cardiomegaly.
== END 2020-12-25 14:40 | disposition home or self-care (01) ==
PROVIDERS: PCP Internal Medicine; Visit Provider Internal Medicine Critical Care Medicine
DX: R06.02 Shortness of breath (principal); J90 Pleural effusion, not elsewhere classified
CPT/HCPCS: 71046

== ENCOUNTER 2021-02-06 10:05 | Outpatient (CLI) | payer MEDICARE, MEDICAID, SELFPAY ==
--- NOTE | 2021-02-06 10:15 | USCV_ITS ---
Marlon Dorantes Age: 50 Gender: M : 1970 Exam Date: 02/06/2021 10:29 Ordering Phys: Keanu Macias MD Technologist: Debo Donaldson Exam Location: [facility] – [place] Indication: RUE DVT HISTORY: Upper extremity swelling. PROCEDURES: Venous duplex imaging was performed in bilateral upper extremities. The following venous structures were evaluated: internal jugular vein, subclavian vein, axillary vein, and brachial veins. In addition, the basilic vein, cephalic vein, radial vein, and ulnar vein. Serial compression, augmentation maneuvers, and spectral Doppler flow evaluation were performed. FINDINGS: CHRONIC THROMBUS SEEN IN CEPHALIC VEIN AT [facility]. ALL OTHER VEINS BILAT APPEAR PATENT. LT CEPHALIC VEIN TO RIGHT RADIAL ARTERY. AVF SEEN AND APPEARS PATENT. CONCLUSIONS Chronic right superficial thrombophlebitis cephalic vein. No acute DVT. Dr. Dorothea Huynh DO (Electronically Signed) Final Date: 06 February 2021 12:32 S
[2021-02-06 11:22] LABS: Basophils # 0.1 10^3/uL (0.0-0.1); Basophils % 0.5 %; Eosinophils # 0.1 10^3/uL (0.0-0.8); Eosinophils % 0.6 %; Hematocrit 36.4 % (42.0-52.0); Lymphocytes # 0.4 10^3/uL (0.8-4.8); Mean Corpuscular HGB Conc 30.2 g/dL (30.0-36.0); Mean Corpuscular Volume 89.2 fL (80-94); Mean Platelet Volume 9.3 fL (7.4-10.4); Monocytes # 0.8 10^3/uL (0.2-0.9); Neutrophils # 10.39 10^3/uL (1.8-7.7); Neutrophils % 88.1 %; Nucleated Red Blood Cells % 0.2 %; Platelet Count 157 10^3/cmm (130-400); Red Blood Count 4.08 10^6/uL (4.1-5.3); White Blood Count 11.8 10^3/uL (4.0-10.0)
[2021-02-06 11:38] LABS: Alanine Aminotransferase 14 U/L (0-41); Albumin Level 4.4 g/dL (3.5-5.2); Alkaline Phosphatase 62 IU/L (40-130); Aspartate Amino Transferase 12 U/L (0-40); Blood Urea Nitrogen 72 mg/dL (6-20); Calcium 8.9 mg/dL (8.5-10.5); Carbon Dioxide 24 mmol/L (22-29); Chloride 96 mmol/L (98-107); Globulin 2.7 g/dL (1.3-4.6); Glomerular Filtration Rate 6.6 mL/min (90-130); Glucose 172 mg/dL (65-115); Osmolality Calculated 315 mOsm/kg (285-295); Sodium 140 mmol/L (136-145); Total Bilirubin 0.8 mg/dL (0.15-1.2); Total Protein 7.1 g/dL (6.6-8.7)
== END 2021-02-06 10:06 | disposition home or self-care (01) ==
LOC: US 10:07
PROVIDERS: PCP Internal Medicine; Visit Provider Internal Medicine Critical Care Medicine
DX: I82.621 Acute embolism and thrombosis of deep veins of right upper extremity (principal)
CPT/HCPCS: 36415; 80053; 85025; 93970

== ENCOUNTER → 2021-03-03 09:21 | Outpatient (BNVA) | payer MEDICARE, MEDICAID, SELFPAY | PROVIDERS: PCP Internal Medicine; Visit Provider Internal Medicine Critical Care Medicine | DX: J84.03 Idiopathic pulmonary hemosiderosis (principal) | CPT/HCPCS: 80053; 85025 ==

== ENCOUNTER 2021-03-10 15:03 | Outpatient (CLI) | payer MEDICARE, MEDICAID, SELFPAY ==
--- NOTE | 2021-03-10 15:18 | MR_ITS ---
WS: [id number] MRI LUMBAR SPINE NONCONTRAST TECHNIQUE: Sagittal T1, T2 and STIR imaging. Axial T1 and T2 imaging. CLINICAL INFORMATION: LOW BACK PAIN LESS THAN 6 MO;VERTEBRAL JOINT PAIN COMPARISON: None. FINDINGS: Minimal lumbar curve. No acute compression. No high-grade central canal stenosis. Prior postoperative changes left L4-5 hemilaminectomy with foraminotomy. L1-L2: Normal. L2-L3: Normal. L3-L4: Mild annular bulging with slight effacement of the ventral thecal sac. Mild facet arthropathy. Small right foraminal protrusion with mild right foraminal narrowing. Slight contact of the exiting right L3 nerve root. Smaller left foraminal protrusion slightly contacts the exiting left L3 nerve ro ot. Mild facet arthropathy. L4-L5: Mild annular bulging with mild central canal stenosis. Evidence of prior left hemilaminectomy with foraminotomy. Slight narrowing of the right subarticular recess. Tiny right synovial cyst contri butes to narrowing of the right subarticular recess measuring 4 mm. Mild to moderate facet arthropath y. L5-S1: Minimal annular bulging. Moderate facet arthropathy. Spinal canal and foramen are patent. Bilateral renal atrophy. Prior postoperative changes cervical fusion in the cervical spine at C5-C6 s een on the pediatrics teacher imaging. Visualized pelvic bony structures: Normal. Paravertebral soft tissues: Normal. MR/MR lumbar spine wo con* [id number] IMPRESSION: 1. Mild lumbar curve. No acute compression. 2. Left L4-5 hemilaminectomy with foraminotomy. 3. Mild residual central canal stenosis L4-5 with impingement right subarticul ar recess and traversing right L5 nerve root. Small right synovial cyst measuri ng 4 mm contributes to subarticular recess stenosis. Mild right L4-5 foraminal narrowing. 4. Small bilateral foraminal protrusions L3-4 right greater than left slightly impinges the exiting right greater than left L3 nerve roots. Recommend correla tion for L3 nerve root symptoms. 5. Moderate facet arthropathy L5-S1.
== END 2021-03-10 15:04 | disposition home or self-care (01) ==
LOC: RADSHAW 15:06
PROVIDERS: PCP Internal Medicine; Visit Provider Internal Medicine Nephrology
DX: M47.817 Spondylosis without myelopathy or radiculopathy, lumbosacral region (principal); M51.27 Other intervertebral disc displacement, lumbosacral region; M96.1 Postlaminectomy syndrome, not elsewhere classified; M48.061 Spinal stenosis, lumbar region without neurogenic claudication
CPT/HCPCS: 72148

== ENCOUNTER → 2021-04-10 09:48 | Outpatient (BNVA) | payer MEDICARE, MEDICAID, SELFPAY | PROVIDERS: PCP Internal Medicine; Visit Provider Internal Medicine Critical Care Medicine | DX: J84.03 Idiopathic pulmonary hemosiderosis (principal); D64.9 Anemia, unspecified | CPT/HCPCS: 80053; 85025 ==

== ENCOUNTER 2021-05-18 09:52 | Inpatient (IN) | payer MEDICARE, MEDICAID, SELFPAY ==
[2021-05-18] VITALS (13 sets, daily range): BP systolic 141–167; BP diastolic 85–109; PULSE 98–120; RESP 17–35; TEMP 36.4–37.3; O2SAT 84–98; BMI 29.9
--- NOTE | 2021-05-18 10:29 | XR_ITS ---
WS: [id number] XR chest 1V portable [id number] REASON FOR EXAM: Cough FINDINGS: Significant cardiomegaly. Right and left pleural effusions, larger on the left. Interstitial and hazy infiltrative density in the right lower lung. Bony thorax is intact with degenerative spondylosis in the mid and lower thoracic spine. XR/XR chest 1V portable [id number] IMPRESSION: Compared to previous examination of 12/25/2020 the [facility] has developed but is of uncertain chronicity. This appears to be a pneumonitis, possibly superimposed on an element of congestive heart failure .
--- NOTE | 2021-05-18 10:29 | ECG_ITS ---
[facility] ED Test Date: 2021-05-18 Pat Name: Marlon Dorantes Department: Room: Gender: Male Receiver Setter: : 1970 Requested By: Sanjay Goodwin Order Number: [id number] Tiffani MD: Sun Valle M.D. Measurements Intervals [place] Rate: 101 P: 66 NM: 159 QRS: -9 QRSD: 100 T: 89 QT: 360 QTc: 467 Interpretive Statements SINUS TACH[address] DEVIATION AND MODERATE T-WAVE ABNORMALITY, CONSIDER LATERAL ISCHEMIA [-0.1+ mV T WAVE IN I/aVL/V5/V6] Compared to ECG 07/03/2020 13:37:29 Sinus rhythm no longer present T-wave abnormality still present Possible ischemia still present Electronically Signed On 05-18-2021 13:42:47 CDT by Sun Valle M.D. [id number]
--- NOTE | 2021-05-18 10:53 | W.ED.GENADLT ---
HPI - General Adult General: Chief complaint: General Medical Stated complaint: SOB, coughing blood, rectal bleeding Time Seen by Provider: 05/18/21 10:22 History of Present Illness: HPI narrative: This patient is a 51-year-old male who presents to the emergency department with concerns of cough and congestion. Patient reportedly was presented to the emergency department from the dialysis center due to AV fistula clotting patient is under unable to perform dialysis for the past 5 days. Is an increased shortness of breath. Patient presented to the local dialysis clinic to get diuresed but they sent to the emergency department due to no access. Patient has increased shortness of breath and had a pulse ox of 84%. Patient has long history of dialysis and due to acute renal failure and congestive heart failure. Patient also has hemochromatosis. And other issues. Related to his lungs patient has had blood coffee-ground sputum and bloody sputum but he states this has been going on for years due to his history ofIdiopathic pulmonary hemosiderosis. Patient states he noticed some blood clot coming from his rectum also. 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 O2 sat on nasal cannula in the emergency department is 92%. Onset (ago): day(s) Associated symptoms: Reports dyspnea; Deny chest pain, headache(s), nausea, rash, palpitations or vomiting Review of Systems General: Reports: 10 or more systems reviewed and unremarkable except in HPI and below Const: Denies: fever(s), chills, body aches or fatigue Eyes: Denies: change in vision or blurry vision ENMT: Denies: throat pain, hoarseness or mouth pain Card: Denies: chest pain, palpitations, irregular heart rhythm, edema, swelling of feet/ankles or lightheadedness Resp: Reports: dyspnea and non-productive cough; Denies: productive cough, wheezing or pain on inspiration GI: Denies: abdominal pain, nausea or vomiting : Denies: flank pain, dysuria, urinary frequency, urinary urgency or urinary hesitancy Musc: Denies: neck pain, back pain, extremity pain, extremity swelling, joint pain, joint swelling, joint redness, joint warmth or limited range of motion Skin/Breast: Denies: rash, pruritus, erythema or skin tenderness Neuro: Denies: headache(s), numbness in extremities or weakness in extremities Psych: Denies: anxiety or depression PFSH ED PFSH: Medical History Atherosclerotic heart disease of [place] coronary artery without angina pectoris Benign essential hypertension Cardiomyopathy CHF NYHA class III (symptoms with mildly strenuous activities) COPD (chronic obstructive pulmonary disease) Diabetes mellitus DVT (deep venous thrombosis) Dyslipidemia ESRD (end stage renal disease) Fistula Left Wrist Headache Hemochromatosis Hemoptysis Hemoptysis Idiopathic pulmonary hemosiderosis Mixed hyperlipidemia Nicotine dependence, cigarettes, uncomplicated Non-ST elevation (NSTEMI) myocardial infarction Pleural effusion Pneumonia Pulmonary hypertension Right-sided chest pain Sepsis Surgical History H/O elbow surgery H/O hand surgery H/O neck surgery History of back surgery History of intravascular stent placement History of thoracotomy Family History Grandmother , In her 50's Myocardial infarction Father Diabetes Mother Diabetes Social History Smoking and tobacco status: former smoker Quit status (tobacco): has quit using tobacco Year quit tobacco: 1999 - 2PPD x 20 Years Second hand smoke exposure: No Alcohol intake: current Alcohol intake frequency: holidays/special occasions only Lives independently: Yes Household members: spouse Marital status: Current occupational status: disabled History of recent travel: No Current gender identity: Male Physical Exam Const: COMMON NORMALS: no acute distress, average body habitus, patient oriented x3, no limitations, healthy appearing, alert and well nourished HENMT: COMMON NORMALS: normocephalic, atraumatic, hearing grossly normal bilaterally, external ears normal, EAC's normal, TM's normal bilaterally, Normal external nose present, Normal nasal mucous membranes and turbinates present, moist oral mucous membranes, oropharynx normal, dentition normal and gingiva normal HEAD & SCALP: normocephalic and atraumatic NOSE: Normal external nose present and Normal nasal mucous membranes and turbinates present EXTERNAL EAR: Yes external ears normal EXTERNAL AUDITORY CANAL: EAC's normal TYMPANIC MEMBRANE: TM's normal bilaterally Neck/C-Spine: COMMON NORMALS: full ROM, no lymphadenopathy, supple, no meningeal signs, no JVD, Thyroid normal and No carotid bruits THYROID: Thyroid normal Chest: COMMONS NORMALS: normal inspection of the chest, normal palpation of entire chest wall, normal inspection of the breasts and normal palpation of the breasts Breast/axilla inspection: Yes normal inspection of the breasts BREAST/AXILLA PALPATION: Yes normal palpation of the breasts Resp: COMMON NORMALS: clear to auscultation bilaterally and percussion normal EFFORT & INSPECTION: Yes tachypneic and Yes uses accessory muscles AUSCULTATION: clear to auscultation bilaterally PERCUSSION: percussion normal Cardio: COMMON NORMALS: no JVD, regular rate, regular rhythm, S1 normal heart sound present, S2 normal heart sound present, No gallops present (Cardio), No clicks present (Cardio), No murmurs present (Cardio), No rub (Cardio) and Peripheral pulses 2+ throughout RATE: regular rate RHYTHM: regular rhythm HEART SOUNDS: S1 normal heart sound present and S2 normal heart sound present PERIPHERAL PULSES: Peripheral pulses 2+ throughout GI: COMMON NORMALS: Normal to inspection, nondistended, normoactive bowel sounds present, Soft to palpation, non-tender, No hepatosplenomegaly present, no masses and no bruits PALPATION: Yes Soft to palpation and Yes No hepatosplenomegaly present : COMMON NORMALS: Yes no CVA tenderness BLADDER/KIDNEY EXAM: Yes no CVA tenderness Back/Pelvis: COMMON NORMALS: no CVA tenderness, thoracic and lumbar spine normal to inspection, no thoracic nor lumbar tenderness, thoraco-lumbar ROM normal and straight leg raise negative bilaterally Extremity: COMMON NORMALS: normal to inspection, full ROM, capillary refill normal, no joint enlargement, no calf tenderness and no pedal edema OTHER: Bilateral lower extremity edema with bullae fluid-filled. Neuro: COMMON NORMALS: patient oriented x3 SENSORIUM/ORIENTATION: Yes alert MENINGEAL SIGNS: Yes no meningeal signs Course Reevaluation(s): Reevaluation #1: I did discuss at length with patient family about findings. And they agree with admission to the hospital for further evaluation treatment Time: 12:35 Consultations: Consultation #1: I discussed at length with Dr. Andrew. She is agreeable for admission to the hospital. She will consult general surgery for possible placement of temporary dialysis cath. Time: 12:35 Vital Signs: Vital signs: Vital Signs Temperature 99.1 F 05/18/21 10:10 Pulse Rate 101 H 0726/21 12:00 Respiratory Rate 20 H 05/18/21 12:00 Blood Pressure 152/96 05/18/21 12:00 Pulse Oximetry 96 05/18/21 12:00 MDM - General Adult MDM Narrative: Medical decision making narrative: This patient is a 51-year-old male who presents to the emergency department with concerns of cough and congestion. Patient reportedly was presented to the emergency department from the dialysis center due to AV fistula clotting patient is under unable to perform dialysis for the past 5 days. Is an increased shortness of breath. Patient presented to the local dialysis clinic to get diuresed but they sent to the emergency department due to no access. Patient has increased shortness of breath and had a pulse ox of 84%. Patient has long history of dialysis and due to acute renal failure and congestive heart failure. Patient also has hemochromatosis. And other issues. Related to his lungs patient has had blood coffee-ground sputum and bloody sputum but he states this has been going on for years due to his history ofIdiopathic pulmonary hemosiderosis. Patient states he noticed some blood clot coming from his rectum also. 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 O2 sat on nasal cannula in the emergency department is 92%. I did discuss at length with patient family about findings. And they agree with admission to the hospital for further evaluation treatment I discussed at length with Dr. Andrew. She is agreeable for admission to the hospital. She will consult general surgery for possible placement of temporary dialysis cath. Lab Data: Labs: Lab Results 05/18/21 05/18/21 05/18/21 Range/Units 11:00 11:10 11:10 WBC 9.9 (4.0-10.0) 10^3/ uL RBC 3.75 L (4.1-5.3) 10^6/u L Hgb 10.9 L (11.7-16.6) g/dL Hct 35.9 L (42.0-52.0) % MCV 95.7 H (80-94) fL MCH 29.1 (28.0-34.0) pg MCHC 30.4 (30.0-36.0) g/dL RDW 18.9 H (12.1-15.1) % Plt Count 109 L (130-400) 10^3/c mm MPV 10.7 H (7.4-10.4) fL Neut % (Auto) 87.9 % Lymph % (Auto) 3.3 % [place] % (Auto) 7.8 % Eos % (Auto) 0.1 % Baso % (Auto) 0.3 % Neut # (Auto) 8.70 H (1.8-7.7) 10^3/u L Lymph # (Auto) 0.3 L (0.8-4.8) 10^3/u L [place] # (Auto) 0.8 (0.2-0.9) 10^3/u L Eos # (Auto) 0.0 (0.0-0.8) 10^3/u L Baso # (Auto) 0.0 (0.0-0.1) 10^3/u L Nucleated RBC % (a uto) 0 % Nucleated RBCs # 0.0 /100WBC PT 14.80 (12.1-14.9) SECO NDS INR 1.13 (0.8-1.2) APTT 31.6 (23.9-36.7) SECO NDS Specimen Type Sample Site ABG pH (7.35-7.45) ABG pCO2 (35-45) mmHg ABG pO2 (80.0-100.0) mmH g ABG HCO3 (22-26) mmol/L ABG O2 Saturation ABG Base Excess (-2.0-2.0) mmol/ L Jose Enrique Test A-a O2 Gradient (5-10) mmHg Hematocrit (42-52) % Hgb O2 Saturation (95-100) % Carboxyhemoglobin (0.4-20.1) %THgb Methemoglobin (0.4-1.5) % Total Hemoglobin (14-18) g/dL Ionized Calcium (1.1-1.4) mmol/L O2 Delivery Device O2 Liters/Min % FiO2 % Irrigation Tax Assessor Collector ID Sodium (136-145) mmol/L Potassium (3.5-5.1) mmol/L Chloride (98-107) mmol/L Carbon Dioxide (22-29) mmol/L Anion Gap (5-19) BUN (6-20) mg/dL Creatinine (0.7-1.2) mg/dL GFR Calculation (90-130) mL/min Glucose (65-115) mg/dL Calculated Osmolal ity (285-295) mOsm/k g Lactic Acid (0.5-2.2) mmol/L Calcium (8.5-10.5) mg/dL Total Bilirubin (0.15-1.2) mg/dL AST (0-40) U/L ALT (0-41) U/L Alkaline Phosphata se (40-130) IU/L Troponin T Baselin e (0-15) ng/L NT-Pro-B Natriuret Pep (0-125) pg/mL Total Protein (6.6-8.7) g/dL Albumin (3.5-5.2) g/dL Globulin (1.3-4.6) g/dL SARS-CoV-2 Ag (Rap id) Negative (Negative) 05/18/21 05/18/21 05/18/21 Range/Units 11:10 11:10 11:10 WBC (4.0-10.0) 10^3/ uL RBC (4.1-5.3) 10^6/u L Hgb (11.7-16.6) g/dL Hct (42.0-52.0) % MCV (80-94) fL MCH (28.0-34.0) pg MCHC (30.0-36.0) g/dL RDW (12.1-15.1) % Plt Count (130-400) 10^3/c mm MPV (7.4-10.4) fL Neut % (Auto) % Lymph % (Auto) % [place] % (Auto) % Eos % (Auto) % Baso % (Auto) % Neut # (Auto) (1.8-7.7) 10^3/u L Lymph # (Auto) (0.8-4.8) 10^3/u L [place] # (Auto) (0.2-0.9) 10^3/u L Eos # (Auto) (0.0-0.8) 10^3/u L Baso # (Auto) (0.0-0.1) 10^3/u L Nucleated RBC % (a uto) % Nucleated RBCs # /100WBC PT (12.1-14.9) SECO NDS INR (0.8-1.2) APTT (23.9-36.7) SECO NDS Specimen Type Sample Site ABG pH (7.35-7.45) ABG pCO2 (35-45) mmHg ABG pO2 (80.0-100.0) mmH g ABG HCO3 (22-26) mmol/L ABG O2 Saturation ABG Base Excess (-2.0-2.0) mmol/ L Jose Enrique Test A-a O2 Gradient (5-10) mmHg Hematocrit (42-52) % Hgb O2 Saturation (95-100) % Carboxyhemoglobin (0.4-20.1) %THgb Methemoglobin (0.4-1.5) % Total Hemoglobin (14-18) g/dL Ionized Calcium (1.1-1.4) mmol/L O2 Delivery Device O2 Liters/Min % FiO2 % Irrigation Tax Assessor Collector ID Sodium 135 L (136-145) mmol/L Potassium 5.6 H (3.5-5.1) mmol/L Chloride 92 L (98-107) mmol/L Carbon Dioxide 15 L (22-29) mmol/L Anion Gap 33.6 H (5-19) BUN 108 H* D (6-20) mg/dL Creatinine 15.7 H* (0.7-1.2) mg/dL GFR Calculation 3.3 L (90-130) mL/min Glucose 137 H (65-115) mg/dL Calculated Osmolal ity 316 H (285-295) mOsm/k g Lactic Acid 1.4 (0.5-2.2) mmol/L Calcium 9.0 (8.5-10.5) mg/dL Total Bilirubin 1.1 (0.15-1.2) mg/dL AST 17 (0-40) U/L ALT 16 (0-41) U/L Alkaline Phosphata se 72 (40-130) IU/L Troponin T Baselin e 242 H* (0-15) ng/L NT-Pro-B Natriuret Pep > 33104 H (0-125) pg/mL Total Protein 7.2 (6.6-8.7) g/dL Albumin 4.3 (3.5-5.2) g/dL Globulin 2.9 (1.3-4.6) g/dL SARS-CoV-2 Ag (Rap id) (Negative) 05/18/21 Range/Units 11:30 WBC (4.0-10.0) 10^3/ uL RBC (4.1-5.3) 10^6/u L Hgb (11.7-16.6) g/dL Hct (42.0-52.0) % MCV (80-94) fL MCH (28.0-34.0) pg MCHC (30.0-36.0) g/dL RDW (12.1-15.1) % Plt Count (130-400) 10^3/c mm MPV (7.4-10.4) fL Neut % (Auto) % Lymph % (Auto) % [place] % (Auto) % Eos % (Auto) % Baso % (Auto) % Neut # (Auto) (1.8-7.7) 10^3/u L Lymph # (Auto) (0.8-4.8) 10^3/u L [place] # (Auto) (0.2-0.9) 10^3/u L Eos # (Auto) (0.0-0.8) 10^3/u L Baso # (Auto) (0.0-0.1) 10^3/u L Nucleated RBC % (a uto) % Nucleated RBCs # /100WBC PT (12.1-14.9) SECO NDS INR (0.8-1.2) APTT (23.9-36.7) SECO NDS Specimen Type Arterial Sample Site Brachial, right ABG pH 7.38 (7.35-7.45) ABG pCO2 29.1 L (35-45) mmHg ABG pO2 58.6 L (80.0-100.0) mmH g ABG HCO3 17.3 L (22-26) mmol/L ABG O2 Saturation 86.1 ABG Base Excess -6.7 L (-2.0-2.0) mmol/ L Jose Enrique Test N/a A-a O2 Gradient 17.2 H (5-10) mmHg Hematocrit 34.4 L (42-52) % Hgb O2 Saturation 84.4 L (95-100) % Carboxyhemoglobin 1.0 (0.4-20.1) %THgb Methemoglobin 1.0 (0.4-1.5) % Total Hemoglobin 11.2 L (14-18) g/dL Ionized Calcium 1.2 (1.1-1.4) mmol/L O2 Delivery Device Nc O2 Liters/Min 3.0 % FiO2 32.0 % Irrigation Tax Assessor Collector ID Gd Sodium 134.0 (136-145) mmol/L Potassium 5.3 H (3.5-5.1) mmol/L Chloride (98-107) mmol/L Carbon Dioxide (22-29) mmol/L Anion Gap (5-19) BUN (6-20) mg/dL Creatinine (0.7-1.2) mg/dL GFR Calculation (90-130) mL/min Glucose 131.0 H (65-115) mg/dL Calculated Osmolal ity (285-295) mOsm/k g Lactic Acid (0.5-2.2) mmol/L Calcium (8.5-10.5) mg/dL Total Bilirubin (0.15-1.2) mg/dL AST (0-40) U/L ALT (0-41) U/L Alkaline Phosphata se (40-130) IU/L Troponin T Baselin e (0-15) ng/L NT-Pro-B Natriuret Pep (0-125) pg/mL Total Protein (6.6-8.7) g/dL Albumin (3.5-5.2) g/dL Globulin (1.3-4.6) g/dL SARS-CoV-2 Ag (Rap id) (Negative) Imaging Data^: CXR: Attestation: I personally reviewed and interpreted this imaging study as follows: Radiologist's impression: IMPRESSION: Compared to previous examination of 12/25/2020 the infiltrative process in the right lower lung has developed but is of uncertain chronicity. This appears to be a pneumonitis, possibly superimposed on an element of congestive heart failure. EKG Data^: EKG 1: Attestation: I personally reviewed and interpreted this EKG as follows: EKG interpretation date: 05/18/21 EKG interpretation time: 10:45 Prior EKG tracings: not available for review Computer generated interpretation: Chest X-Ray 05/18/21 10:29 IMPRESSION: Compared to previous examination of 12/25/2020 the infiltrative process in the right lower lung has developed but is of uncertain chronicity. This appears to be a pneumonitis, possibly superimposed on an element of congestive heart failure. Sinus tachycardia nonspecific ST changes. Heart rate 101 Discharge Plan Discharge Patient Disposition: Admitted As Inpatient Clinical Impression: Shortness of breath, Pulmonary hypertension, Chronic renal failure, Hyperkalemia, Idiopathic pulmonary hemosiderosis, Acute CHF (congestive heart failure) Condition: Stable Prescriptions: No Action promethazine 12.5 mg tablet 12.5 mg PO Q6H PRN (Reason: Nausea) RF: 0 albuterol sulfate 90 mcg/actuation HFA aerosol inhaler 2 puff inhalation QID PRN (Reason: shortness of breath or wheezing) 30 Days Qty: 8.5 RF: 2 aspirin 81 mg tablet,delayed release (DR/EC) 81 mg PO DAILY RF: 0 nitroglycerin [Nitrostat] 0.4 mg tablet, sublingual 0.4 mg SUBLINGUAL Q5M PRN (Reason: Pain) RF: 0 amlodipine 10 mg tablet 10 mg PO BEDTIME RF: 0 metoprolol tartrate 50 mg tablet 50 mg PO DAILY RF: 0 oxycodone-acetaminophen 5-325 mg tablet 1 tab PO Q6H PRN (Reason: Moderate To Severe Pain) 7 Days Qty: 28 RF: 0 pregabalin [Lyrica] 75 mg capsule 75 mg PO BID RF: 0 fluticasone propionate [Flonase Allergy Relief] 50 mcg/actuation spray,suspension 1 spray intranasal BID PRN (Reason: Nasal Congestion) RF: 0 prednisone 2.5 mg tablet 7.5 mg PO DAILY 30 Days Qty: 90 RF: 2 pantoprazole 40 mg tablet,delayed release (DR/EC) 40 mg PO QAM 90 Days Qty: 90 RF: 3 duloxetine 20 mg capsule,delayed release(DR/EC) See Rx Instructions .ROUTE .COMPLEX Qty: 60 RF: 3 lidocaine-prilocaine 2.5-2.5 % cream See Rx Instructions .ROUTE .COMPLEX RF: 0 calcitriol 0.5 mcg capsule See Rx Instructions .ROUTE .COMPLEX RF: 0 Heparin Injection See Rx Instructions .ROUTE .COMPLEX RF: 0 clonazepam 0.5 mg tablet 1 mg .ROUTE .COMPLEX RF: 0 sevelamer HCl 800 mg tablet 2,400 mg PO TID RF: 0 azathioprine 50 mg tablet 75 mg PO DAILY RF: 0 RenaPlex-D 800 mcg-12.5 mg -2,000 unit tablet See Rx Instructions .ROUTE .COMPLEX RF: 0 Referrals: Michael Eubanks DO [Primary Care Provider] - Coding Level of Care Code ED [employer] for Chg Fwd Exam Comprehensive
[2021-05-18 11:17] LABS: Basophils % 0.3 %; Eosinophils % 0.1 %; Hematocrit 35.9 % (42.0-52.0); Hemoglobin 10.9 g/dL (11.7-16.6); Lymphocytes # 0.3 10^3/uL (0.8-4.8); Lymphocytes % 3.3 %; Mean Corpuscular HGB Conc 30.4 g/dL (30.0-36.0); Mean Corpuscular Hemoglobin 29.1 pg (28.0-34.0); Mean Corpuscular Volume 95.7 fL (80-94); Mean Platelet Volume 10.7 fL (7.4-10.4); Monocytes # 0.8 10^3/uL (0.2-0.9); Monocytes % 7.8 %; Neutrophils % 87.9 %; Nucleated Red Blood Cells % 0 %; Platelet Count 109 10^3/cmm (130-400); Red Blood Count 3.75 10^6/uL (4.1-5.3); Red Cell Distribution Width 18.9 % (12.1-15.1); White Blood Count 9.9 10^3/uL (4.0-10.0)
[2021-05-18 11:28] LABS: INR 1.13 (0.8-1.2)
[2021-05-18 11:29] LABS: Partial Thromboplastin Time 31.6 SECONDS (23.9-36.7)
[2021-05-18] MEDS: albuterol 8 gm MDI 2 PUFF INHALATION (11:32)
[2021-05-18 11:37] LABS: Lactic Sepsis W/Reflex 1.4 mmol/L (0.5-2.2)
[2021-05-18 11:40] LABS: Troponin(5th) Baseline 242 ng/L (0-15)
[2021-05-18 11:42] LABS: SARS Covid-2 Antigen Negative (Negative)
[2021-05-18 11:45] LABS: ABG PCO2 29.1 mmHg (35-45); ABG PH Result 7.38 (7.35-7.45); Alveolar-Arterial Oxygen Gradi 17.2 mmHg (5-10); Arterial Blood Gas Hematocrit 34.4 % (42-52); Base Excess ABG -6.7 mmol/L (-2.0-2.0); Blood Gas Operator Identificat GD; Blood Gas Sample Site Brachial, right; Blood Gas Sample Type Arterial; HCO3 ABG 17.3 mmol/L (22-26); HGB O2 Sat 84.4 % (95-100); Ionized Calcium Level - ABG 1.2 mmol/L (1.1-1.4); Oxygen Device NC; Oxygen Saturation ABG 86.1; PO2 ABG 58.6 mmHg (80.0-100.0); Potassium Level - ABG 5.3 mmol/L (3.5-5.0); Total Hemoglobin 11.2 g/dL (14-18)
[2021-05-18 11:46] LABS: Alanine Aminotransferase 16 U/L (0-41); Albumin Level 4.3 g/dL (3.5-5.2); Alkaline Phosphatase 72 IU/L (40-130); Anion Gap 33.6 (5-19); Aspartate Amino Transferase 17 U/L (0-40); Carbon Dioxide 15 mmol/L (22-29); Chloride 92 mmol/L (98-107); Globulin 2.9 g/dL (1.3-4.6); Glomerular Filtration Rate 3.3 mL/min (90-130); Glucose 137 mg/dL (65-115); Osmolality Calculated 316 mOsm/kg (285-295); Potassium 5.6 mmol/L (3.5-5.1); Sodium 135 mmol/L (136-145); Total Bilirubin 1.1 mg/dL (0.15-1.2); Total Protein 7.2 g/dL (6.6-8.7)
[2021-05-18 11:48] LABS: Blood Urea Nitrogen 108 mg/dL (6-20)
[2021-05-18 12:14] LABS: NT Pro B Type Natriuretic Pept > 35000 pg/mL (0-125)
--- NOTE | 2021-05-18 12:30 | ECG_ITS ---
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 Measurements Intervals [place] Rate: 101 P: 55 AL: 140 QRS: -6 QRSD: 101 T: 106 QT: 357 QTc: 464 Interpretive Statements SINUS TACHYCARDIA POSSIBLE LEFT ATRIAL ENLARGEMENT [-0.1mV P WAVE IN V1/V2] ST DEVIATION AND MODERATE T-WAVE ABNORMALITY, CONSIDER LATERAL ISCHEMIA [-0.1+ mV T WAVE IN I/aVL/V5/V6] Compared to ECG 05/18/2021 10:45:09 No significant changes Electronically Signed On 05-18-2021 22:23:43 CDT by Sun Valle M.D. [id number]
[2021-05-18 13:38] LABS: Troponin 5 2HR Delta 6.9 ABS# (0-10)
[2021-05-18 13:44] LABS: Troponin 5 2HR 248.9 ng/L (0-15)
--- NOTE | 2021-05-18 14:11 | PC.NURSE ---
notified Dr. Goodwin of pt co Cp and increasing o2 requirements. new order rcvd.
[2021-05-18] MEDS: morphine 4 mg/mL SDV 1 mL 2 MG IVP (14:19)
--- NOTE | 2021-05-18 16:30 | ECG_ITS ---
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 Measurements Intervals [place] Rate: 102 P: 49 GA: 132 QRS: -18 QRSD: 100 T: 112 QT: 353 QTc: 461 Interpretive Statements SINUS TACHYCARDIA POSSIBLE LEFT ATRIAL ENLARGEMENT [-0.1mV P WAVE IN V1/V2] ST DEVIATION AND MODERATE T-WAVE ABNORMALITY, CONSIDER LATERAL ISCHEMIA [-0.1+ mV T WAVE IN I/aVL/V5/V6] Compared to ECG 05/18/2021 13:04:15 No significant changes Electronically Signed On 05-18-2021 22:19:26 CDT by Sun Valle M.D. [id number]
[2021-05-18 18:49] LABS: Troponin 5 6HR 255.4 ng/L (0-15); Troponin 5 6HR Delta 13.4 ng/L (0-12)
--- NOTE | 2021-05-18 19:49 | P.HP_ITS ---
Providers/Chief Complaint Admitting Physician: Subhash Andrew DO Primary Care Provider: Michael Eubanks DO Chief Complaint: SOB, coughing blood, rectal bleeding History of Present Illness Marlon Dorantes is a 51 year old male with end-stage renal disease who dialyzes at home. He has been unable to access his fistula for 5 days now. He is short of breath has hemoptysis; which is common for him due to his underlying conditions. He has chest discomfort in the middle of his chest it feels like it is burning. He was scheduled to have the fistula thrombolysed in [place] tomorrow however he could not wait due to his symptoms. His symptoms are severe and progressing. Review of Systems Const: Denies: fever(s) or chills Eyes: Denies: change in vision ENMT: Denies: throat pain or nasal congestion Card: Reports: chest pain and swelling of feet/ankles Resp: Reports: dyspnea, productive cough and hemoptysis GI: Denies: abdominal pain, nausea, vomiting or change in stool character : Denies: difficulty urinating or dysuria Musc: Denies: back pain or extremity pain Skin/Breast: Reports: other (left lower extremity erythema and bullous lesion.) Neuro: Denies: headache(s) or dizziness Psych: Denies: anxiety or depression Pranav/Lymph: Denies: easy bruising or easy bleeding Medications/Allergies Home Medications Medication Instructions Recorded Confirmed Last Taken Type amlodipine 10 mg tablet 10 mg PO BEDTIME 10/31/19 05/18/21 05/17/21 History aspirin 81 mg tablet,delayed 81 mg PO DAILY 10/31/19 05/18/21 05/17/21 History release nitroglycerin 0.4 mg sublingual 0.4 mg SUBLINGUAL Q5M PRN 10/31/19 05/18/21 Unknown History tablet metoprolol tartrate 50 mg tablet 50 mg PO DAILY tab 11/09/19 05/18/21 05/17/21 History RenaPlex-D See Rx Instructions .ROUTE .COMPLEX 02/28/20 05/18/21 05/17/21 History oxycodone-acetaminophen 5 mg-325 1 tab PO Q6H PRN 7 Days #28 tab 03/20/20 05/18/21 07/01/20 Rx mg tablet 5 mg / 325 mg promethazine 12.5 mg tablet 12.5 mg PO Q6H PRN 04/29/20 05/18/21 07/01/20 History 12.5 mg calcitriol See Rx Instructions .ROUTE .COMPLEX 05/24/20 05/18/21 05/17/21 History lidocaine-prilocaine See Rx Instructions .ROUTE .COMPLEX 05/24/20 05/18/21 06/30/20 History pantoprazole 40 mg tablet,delayed 40 mg PO QAM 90 Days #90 tab 07/29/20 05/18/21 05/17/21 Rx release albuterol sulfate 90 mcg/actuation 2 puff INHALATION QID PRN 30 Days 12/25/20 05/18/21 Unknown Rx aerosol inhaler #8.5 g Heparin Injection See Rx Instructions .ROUTE .COMPLEX 03/10/21 05/18/21 Unknown History clonazepam 0.5 mg tablet 1 mg .ROUTE .COMPLEX tab 03/10/21 05/18/21 Unknown History fluticasone propionate 50 1 spray INTRANASAL BID PRN ml 03/10/21 05/18/21 Unknown History mcg/actuation nasal spray,suspension pregabalin 75 mg capsule 75 mg PO BID 03/10/21 05/18/21 05/17/21 History duloxetine 20 mg capsule,delayed See Rx Instructions .ROUTE 04/06/21 05/18/21 05/17/21 Rx release .COMPLEX #60 cap prednisone 2.5 mg tablet 7.5 mg PO DAILY 30 Days #90 tab 04/13/21 05/18/21 05/17/21 Rx azathioprine 75 mg PO DAILY 05/18/21 05/18/21 05/17/21 History sevelamer HCl 2,400 mg PO TID 05/18/21 05/18/21 05/17/21 History Allergies Allergy/AdvReac Type Severity Reaction Status Date / Time azithromycin Allergy ADR-Chest Verified 05/13/21 09:20 Pain carvedilol AdvReac ADR-Dizzine Verified 05/13/21 09:20 ss PFSH Acute PFSH: Medical History (Updated 05/18/21 @ 19:59 by Subhash Andrew DO) Atherosclerotic heart disease of [place] coronary artery without angina pectoris Benign essential hypertension Cardiomyopathy CHF NYHA class III (symptoms with mildly strenuous activities) COPD (chronic obstructive pulmonary disease) Diabetes mellitus DVT (deep venous thrombosis) Dyslipidemia ESRD (end stage renal disease) Fistula Left Wrist Headache Hemochromatosis Hemoptysis Hemoptysis Idiopathic pulmonary hemosiderosis Mixed hyperlipidemia Nicotine dependence, cigarettes, uncomplicated Non-ST elevation (NSTEMI) myocardial infarction Pleural effusion Pneumonia Pulmonary hypertension Right-sided chest pain Sepsis Surgical History H/O elbow surgery H/O hand surgery H/O neck surgery History of back surgery History of intravascular stent placement History of thoracotomy Family History Grandmother , In her 50's Myocardial infarction Father Diabetes Mother Diabetes Social History Smoking and tobacco status: former smoker Quit status (tobacco): has quit using tobacco Year quit tobacco: 1999 - 2PPD x 20 Years Second hand smoke exposure: No Alcohol intake: current Alcohol intake frequency: holidays/special occasions only Lives independently: Yes Household members: spouse Marital status: Current occupational status: disabled History of recent travel: No Current gender identity: Male Vitals/I&O/Wt Last Vital Signs Temp 99.2 F 05/18/21 19:40 Pulse 120 H 05/18/21 19:40 Resp 19 H 05/18/21 19:40 BP 153/85 05/18/21 19:40 Pulse Ox 86 L 05/18/21 19:40 Weight last 48 hrs Weight 94.801 kg Physical Exam Const: COMMON NORMALS: alert GENERAL APPEARANCE: cooperative and in distress NUTRITIONAL APPEARANCE: overweight ORIENTATION/CONSCIOUSNESS: Yes awake, Yes oriented to person, Yes oriented to place and Yes oriented to time HENMT: COMMON NORMALS: normocephalic, atraumatic and hearing grossly normal bilaterally Eye: COMMON NORMALS: Equal, round and reactive pupils present, EOMs intact bilaterally and conjunctivae normal Neck/C-Spine: COMMON NORMALS: no lymphadenopathy, supple, no JVD, Thyroid normal and No carotid bruits Lymph: LYMPHATIC: no lymphadenopathy noted Chest: COMMONS NORMALS: normal inspection of the chest and normal palpation of entire chest wall Resp: COMMON NORMALS: normal respiratory effort EFFORT & INSPECTION: Yes able to speak in complete sentences and Yes tachypneic AUSCULTATION: rales Cardio: COMMON NORMALS: no JVD, regular rate, regular rhythm, S1 normal heart sound present, S2 normal heart sound present and No murmurs present (Cardio) GI: COMMON NORMALS: Soft to palpation, non-tender, No hepatosplenomegaly present and no masses : COMMON NORMALS: Yes no CVA tenderness Back/Pelvis: COMMON NORMALS: no CVA tenderness Extremity: NARRATIVE EXTREMITY EXAM: left lower extremity with erythema and bullous lesions Neuro: COMMON NORMALS: patient oriented x3, CN's II-XII intact bilaterally, moves all extremities and no focal motor deficits Psych: COMMON NORMALS: mental status grossly normal, Normal thought process present and cooperative Skin: NARRATIVE SKIN EXAM: as per extremity documentation Data : 05/18/21 11:10 05/18/21 11:10 Micro: Microbiology 05/18/21 11:04 Blood Culture - Preliminary Blood SPECIMEN COLLECTED 05/18/21 11:10 Blood Culture - Preliminary Blood SPECIMEN COLLECTED A&P Assessment and plan (1) Shortness of breath: Due to lack of HD in 5 days. Spoke with telemedicine nephorologist and will attempt HD tonight. If unable will need general surgery for temp catheter. Status: Acute (2) Acute CHF (congestive heart failure): Due to vol overload due to lack of HD Status: Acute (3) Idiopathic pulmonary hemosiderosis: Pt with hemoptysis at this time. Status: Acute (4) ESRD (end stage renal disease): consult to nephrology for inpt HD. Will attempt to access tonight. Status: Acute Attestations Medical Necessity Statement*: Pt without HD for 5 days with hypoxia, acute respiratory failure and congestive heart failure. Requires urgent HD. Coding Level of Care Code Acute Director External Communications for [facility] Fw Diagnoses Shortness of breath R06.02 Acute CHF (congestive heart failure) I50.9 Idiopathic pulmonary hemosiderosis J84.03 ESRD (end stage renal disease) N18.6
--- NOTE | 2021-05-18 20:36 | PM.PN ---
Subjective Subjective: Interval history: PResented with SOB, LOPEZ, having missed dialysis x 5 days. Also has some clots per rectum and some hemoptysis. He feels unwell, nauseated, weak, unwell. Kelsie AVF with bruit and thrill, typically he uses button-hole for cannulation and hasn't been able to do this. He has an appointment with vascular surgery in a few days but felt too unwell and so came to the ER. He has obvious signs and symptoms of hypervolemia and hypertension. Vitals/I&O/Wt Last Vital Signs Temp 99.2 F 05/18/21 19:40 Pulse 120 H 05/18/21 19:40 Resp 19 H 05/18/21 19:40 BP 153/85 05/18/21 19:40 Pulse Ox 86 L 05/18/21 19:40 Weight last 48 hrs Weight 94.801 kg Physical Exam Narrative: EXAM NARRATIVE: Unwell HEENT: wet mucosa, elevated jvp Lungs: Bilaterally scattered rales CVS: S1 S2 no murmur Abdo: Soft, BS ok Ext x 4 with 2-3+ edema Data : 05/18/21 11:10 05/18/21 11:10 Micro: Microbiology 05/18/21 11:04 Blood Culture - Preliminary Blood SPECIMEN COLLECTED 05/18/21 11:10 Blood Culture - Preliminary Blood SPECIMEN COLLECTED A&P Additional A&P Information 1. ESRD Given critical hypervolemia will dialyze this evening 2K, UF 4L, no heparin given bleeding eval in the am for additional dialysis dose meds for eGFR < 15 will attempt cannulation this evening, but will need Fistulogram in the near future 2. HyperK will come down with dialysis, no other Rx 3. Hypertension Will come down with dialysis, no other Rx 4. Will be ok for DC when clinically euvolemic Rei Jacob MD Nephro, Attestations Medical Necessity Statement*: eval for renal failure Coding Level of Care Code Acute Quantitative Analyst Marketing for [employer]
[2021-05-18] MEDS: acetaminophen 325 mg Tablet 650 MG PO (21:09)
[2021-05-18] MEDS: heparin 5,000 unit/mL INJ 1 mL 5000 UNIT SUBCUT (21:09)
[2021-05-18] MEDS: ondansetron 2 mg/ML SDV 2 mL 4 MG IVP (21:15)
[2021-05-19] VITALS (10 sets, daily range): BP systolic 135–162; BP diastolic 86–98; PULSE 92–106; RESP 16–20; TEMP 36.6–37.5; O2SAT 85–97
--- NOTE | 2021-05-19 04:51 | PC.RESP ---
pt was sating 67% upon entering pt room, placed pt back on his nasal cannula and increased to 11 lpm, sats improved to 93%. nursing at bedside, informing of pt. no resp dx noted.
[2021-05-19] MEDS: heparin 5,000 unit/mL INJ 1 mL 5000 UNIT SUBCUT ×3 (05:03→20:41)
[2021-05-19 06:56] LABS: Anion Gap 23.4 (5-19); Blood Urea Nitrogen 67 mg/dL (6-20); Carbon Dioxide 25 mmol/L (22-29); Chloride 94 mmol/L (98-107); Glomerular Filtration Rate 5.3 mL/min (90-130); Glucose 115 mg/dL (65-115); Osmolality Calculated 306 mOsm/kg (285-295); Potassium 4.4 mmol/L (3.5-5.1); Sodium 138 mmol/L (136-145)
--- NOTE | 2021-05-19 10:21 | PC.CHAP ---
Pastoral Care Encounter/Spiritual Assessment Type of Contact [] Declined kettle operator head visit [] Patient/Family/Request visit [] Outpatient visit [] Follow-up visit [] Physician referral [] Code/Alert [x] Routine visit [] Staff referral [] Actively dying [] Patient sleeping [] Family support [] [] Out of room [] Palliative care [] [] Receiving care in room [] Pre-surgical visit [] Trauma [] Long length of stay [] ICU visit [] Other: Relational/Emotional Strength [] Patient feels connected with others/family/visitors/staff [] Distress [] Loneliness/isolation [] Abandonment Spirituality of Patient [x] Person of Ashley [] Attends Voodoo of their Ashley [] Believes in Prayer [] Reads Bible or Adventism materials [] There are Spiritual issues to be addressed Career Services Manager Interventions [x] Prayer [] Active listening [] Non-anxious presence [] Spiritual/emotional support [] Crisis/trauma care [] Spiritual counseling [] Bereavement support [] Provided bereavement packet [] Provided Bible/devotional materials [] Provided toy/stuffed animal, coloring book to patient or family member [] Provided Communion [] Anointing/[place] [] Salvation [x] Completed spiritual assessment [] Other: Impact on Illness or Injury [] Angry [] Fearful [] Anxious [] Often cries [] Exhaustion [] Unable to work [] Unable to attend christianity [] Unable to walk/stand [] Unable to read [] Unable to drive [] Unable to eat/drink [] Unable to sleep [] Unable to be with family [] Patient intubated [] Other: Summary Time spent with patient 10 min
--- NOTE | 2021-05-19 11:34 | CT_ITS ---
WS: [id number] CTA OF THE CHEST WITH PULMONARY EMBOLISM PROTOCOL TECHNIQUE: High-resolution contrast enhanced CTA of the chest with coronal and sagittal reformatted i mages with pulmonary embolism protocol. MIP images are also reviewed. CLINICAL INFORMATION: severe hypoxia on 11L COMPARISON: None. DLP: 603.[address] scans at [facility] use at least one of these dose optimization techniques: automat ed exposure control; mA and/or kV adjustment per patient size (includes targeted exams where dose is matched to clinical indication); or iterative reconstruction. FINDINGS: Diffuse bilateral hazy groundglass infiltrates compatible with COVID 19 pneumonia. Small to moderate left pleural effusion with compressive atelectasis left lower lobe. Small amount of fluid along the r ight major fissure. Aortic calcification. Coronary calcification. Mediastinal and peribronchial lymphadenopathy likely re active. Bronchovascular thickening right greater than left. Cardiomegaly. Proximal main pulmonary arteries are normal. No suspicious filling defects to indicate pulmonary embo nohemi. Segmental and subsegmental pulmonary arteries appear patent. No axillary lymphadenopathy. Normal adrenal glands. Normal GE junction. Bilateral renal cortical atro phy. Hypertrophic changes thoracic spine. CT/CT angio chest PE protcl [id number] IMPRESSION: 1. Proximal main pulmonary arteries are normal. No evidence of pulmonary embol us. 2. Diffuse bilateral hazy groundglass infiltrates compatible with COVID 19 pne umonia. 3. Small moderate left and trace right pleural fluid. Compressive atelectasis left lower lobe. 4. Cardiomegaly. 5. Reactive mediastinal and peribronchial lymphadenopathy with bronchovascular thickening.
--- NOTE | 2021-05-19 12:35 | PM.PN ---
Subjective Subjective: Interval history: Following dialysis yesterday, Mr. Dorantes did feel some improvement, however, over the last 24 hours has developed increasing oxygen requirements. Covid testing is sent and pending. CTA of the chest is currently requested. He still has significant lower extremity edema. Vitals/I&O/Wt Last Vital Signs Temp 97.9 F 05/19/21 10:51 Pulse 92 05/19/21 10:51 Resp 18 05/19/21 10:51 BP 137/91 05/19/21 10:51 Pulse Ox 92 05/19/21 10:51 05/18/21 05/19/21 05/19/21 22:59 06:59 14:59 Intake Total 120 / 120 240 / 360 Output Total 2669 / 2669 Balance 120 / 120 -2429 / -2309 Weight last 48 hrs Weight 92.487 kg Weight 93.6 kg Weight 94.801 kg Physical Exam Narrative: EXAM NARRATIVE: HEENT: wet mucosa, elevated jvp Lungs: Bilaterally scattered rales CVS: S1 S2 no murmur Abdo: Soft, BS ok Ext x 4 with 2-3+ edema Data : 05/18/21 11:10 05/19/21 05:58 Micro: Microbiology 05/18/21 11:10 Blood Culture - Preliminary Blood NEGATIVE TO DATE 05/18/21 11:04 Blood Culture - Preliminary Blood NEGATIVE TO DATE A&P Additional A&P Information 1. ESRD Repeat dialysis again today 3K, UF 4L, no heparin given bleeding eval in the am for additional dialysis dose meds for eGFR < 15 will attempt cannulation this evening, but will need Fistulogram in the near future 2. HyperK came down with dialysis 3. Hypertension Will come down with dialysis, no other Rx 4. Increased O2 needs Chest x-ray with infiltrates consistent with evolving pneumonia versus pulmonary edema. Also appreciate concerns for pulmonary embolism and is pending CTA to rule out. I will perform dialysis on this afternoon, management per primary team. 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
[2021-05-19] MEDS: iohexol 350 mg/mL 100 mL Btl IV (13:36)
[2021-05-19] MEDS: iodixanol 320 mg/mL 100mL Btl IV (13:40)
[2021-05-19] MEDS: ondansetron 2 mg/ML SDV 2 mL 4 MG IVP (14:11)
[2021-05-19] MEDS: acetaminophen 325 mg Tablet 650 MG PO (14:12)
--- NOTE | 2021-05-19 14:54 | PM.PN ---
Subjective Subjective: Interval history: Pt feels much better after HD last night. Denies cough, fever or worsening SOB. However, now requiring 11 L high flow oxygen Vitals/I&O/Wt Last Vital Signs Temp 97.9 F 05/19/21 10:51 Pulse 92 05/19/21 10:51 Resp 18 05/19/21 10:51 BP 137/91 05/19/21 10:51 Pulse Ox 92 05/19/21 10:51 05/18/21 05/19/21 05/19/21 22:59 06:59 14:59 Intake Total 120 / 120 240 / 360 120 / 120 Output Total 2669 / 2669 Balance 120 / 120 -2429 / -2309 120 / 120 Weight last 48 hrs Weight 92.487 kg Weight 93.6 kg Weight 94.801 kg Physical Exam Narrative: EXAM NARRATIVE: awake oreinted, NAD smiling H; Reg nl S1And S2 no loud murmur L: decreased Bs with scattered rales A: obese soft NTND nl BS E: still with edema similar to yesterday Data : 05/18/21 11:10 05/19/21 05:58 Micro: Microbiology 05/18/21 11:10 Blood Culture - Preliminary Blood NEGATIVE TO DATE 05/18/21 11:04 Blood Culture - Preliminary Blood NEGATIVE TO DATE A&P Assessment and plan (1) ESRD (end stage renal disease): Had HD yesterday. spoke with principal automation engineer via telemedicine. Plan to do further HD. intensive care medicine specialist will assist pt to self cannulate. Status: Acute (2) Acute CHF (congestive heart failure): continue HD Status: Acute (3) Idiopathic pulmonary hemosiderosis: stable Status: Acute (4) Hypoxia: acute respiratory failure requiring 11 L ? PE. CTA chest negative for embolus but shows interstitial pneumonia treat for bacterial pneumonia with cefepime Status: Acute (5) Suspected COVID-19 virus infection: rapid covid negative. PCR pending. symptoms, hypoxia and CT scan suggest strongly COVID pneumonia. will start treatment with remdesivir and decadron. Status: Acute Attestations Medical Necessity Statement*: acute respiratory failure treating for COVID while PCR pending. Coding Level of Care Code Acute Director Dermatology for [facility] Fwd Diagnoses ESRD (end stage renal disease) N18.6 Acute CHF (congestive heart failure) I50.9 Idiopathic pulmonary hemosiderosis J84.03 Hypoxia R09.02 Suspected COVID-19 virus infection Z20.822
[2021-05-19] MEDS: dexamethasone 4 mg/mL INJ 6 MG IVP (18:10)
--- NOTE | 2021-05-19 19:42 | PC.HD ---
Pt having back pain. Tylenol given prior to tx by Aimee MONROY without improvement
[2021-05-20] VITALS (9 sets, daily range): BP systolic 137–155; BP diastolic 85–91; PULSE 72–92; RESP 16–20; TEMP 36.7–37; O2SAT 91–97
[2021-05-20] MEDS: heparin 5,000 unit/mL INJ 1 mL 5000 UNIT SUBCUT ×3 (05:55→21:27)
[2021-05-20 07:30] LABS: Blood Urea Nitrogen 47 mg/dL (6-20); Carbon Dioxide 25 mmol/L (22-29); Chloride 93 mmol/L (98-107); Glomerular Filtration Rate 7.5 mL/min (90-130); Glucose 132 mg/dL (65-115); Osmolality Calculated 292 mOsm/kg (285-295); Phosphorus 6.1 mg/dL (2.5-4.5); Sodium 134 mmol/L (136-145)
[2021-05-20 08:10] LABS: Anion Gap 21.4 (5-19); Potassium 5.4 mmol/L (3.5-5.1)
[2021-05-20] MEDS: lidocaine 5% Patch 1 PATCH TOPICAL (09:24)
[2021-05-20 14:18] LABS: Coronavirus Test Green County Not Detected
--- NOTE | 2021-05-20 14:56 | P.PN_ITS ---
Subjective Subjective: Interval history: Feels even better today. Better spirits. remains on 11 L and he does't know why. Medications: Reviewed: Yes Vitals/I&O/Wt Last Vital Signs Temp 98.4 F 05/20/21 12:00 Pulse 87 05/20/21 12:00 Resp 20 H 05/20/21 12:00 BP 155/85 05/20/21 12:00 Pulse Ox 92 05/20/21 12:00 05/19/21 05/20/21 05/20/21 22:59 06:59 14:59 Intake Total 590 / 710 360 / 360 Output Total 3300 / 3300 0 / 3300 Balance -2710 / -2590 0 / -2590 360 / 360 Weight last 48 hrs Weight 91.898 kg Weight 92.5 kg Weight 92.487 kg Weight 93.6 kg Physical Exam Narrative: EXAM NARRATIVE: awake oreinted, NAD smiling H; Reg nl S1And S2 no loud murmur L: decreased Bs with scattered rales A: obese soft NTND nl BS E: still with edema similar to yesterday Const: COMMON NORMALS: patient oriented x3 and alert GENERAL APPEARANCE: cooperative and in distress NUTRITIONAL APPEARANCE: overweight ORIENTATION/CONSCIOUSNESS: Yes awake, Yes oriented to person, Yes oriented to place and Yes oriented to time HENMT: COMMON NORMALS: normocephalic, atraumatic and hearing grossly normal bilaterally HEAD & SCALP: normocephalic and atraumatic Eye: COMMON NORMALS: Equal, round and reactive pupils present, EOMs intact bilaterally, conjunctivae normal and normal visual hunt by confrontation CONJUNCTIVA: Yes conjunctivae normal PUPIL: Yes Equal, round and reactive pupils present Neck/C-Spine: COMMON NORMALS: no lymphadenopathy, supple, no JVD, Thyroid normal and No carotid bruits THYROID: Thyroid normal Lymph: LYMPHATIC: no lymphadenopathy noted Chest: COMMONS NORMALS: normal inspection of the chest and normal palpation of entire chest wall Resp: COMMON NORMALS: normal respiratory effort EFFORT & INSPECTION: Yes able to speak in complete sentences and Yes tachypneic AUSCULTATION: rales Cardio: COMMON NORMALS: no JVD, regular rate, regular rhythm, S1 normal heart sound present, S2 normal heart sound present and No murmurs present (Cardio) RATE: regular rate RHYTHM: regular rhythm HEART SOUNDS: S1 normal heart sound present and S2 normal heart sound present GI: COMMON NORMALS: Soft to palpation, non-tender, No hepatosplenomegaly present and no masses PALPATION: Yes Soft to palpation and Yes No hepatosplenomegaly present : COMMON NORMALS: Yes no CVA tenderness BLADDER/KIDNEY EXAM: Yes no CVA tenderness Back/Pelvis: COMMON NORMALS: no CVA tenderness Extremity: NARRATIVE EXTREMITY EXAM: left lower extremity with erythema and bullous lesions Neuro: COMMON NORMALS: patient oriented x3, CN's II-XII intact bilaterally, moves all extremities and no focal motor deficits SENSORIUM/ORIENTATION: Yes alert, Yes oriented to person, Yes oriented to place and Yes oriented to time Psych: COMMON NORMALS: mental status grossly normal, Normal thought process present and cooperative THOUGHT PROCESS: Normal thought process present Skin: NARRATIVE SKIN EXAM: as per extremity documentation Data : 05/18/21 11:10 05/20/21 05:51 Micro: Microbiology 05/18/21 11:10 Blood Culture - Preliminary Blood NEGATIVE TO DATE 05/18/21 11:04 Blood Culture - Preliminary Blood NEGATIVE TO DATE A&P Assessment and plan (1) ESRD (end stage renal disease): Has been dialyzed twice now. He can self cannulate in pin hole. Status: Acute (2) Acute CHF (congestive heart failure): resolving with HD Status: Acute (3) Idiopathic pulmonary hemosiderosis: stable Status: Acute (4) Hypoxia: acute respiratory failure requiring 11 L I personally turned down his oxygen and educated RN and tech to turn down oxygen for goal pulse ox >/= 92%. Has been able to be weaned down to 4 L at rest however requires 6-8 with activity. Will need home oxygen in am. CTA chest negative for embolus but shows interstitial pneumonia possibly consistent with COVID. On cefepime for possible bacterial pneumonia COVID PCR pending. REsults should be back at 4 pm Status: Acute (5) Suspected COVID-19 virus infection: rapid covid negative. PCR pending. symptoms, hypoxia and CT scan suggest strongly COVID pneumonia. Unable to give remdesivir due to ESRD; howver, can use decadron. Status: Acute Attestations Medical Necessity Statement*: HOspitalization required due to degree of hypoxia and increased oxygen requirements with activity. Coding Level of Care Code Acute Hospice Nurse for [facility] Diagnoses ESRD (end stage renal disease) N18.6 Acute CHF (congestive heart failure) I50.9 Idiopathic pulmonary hemosiderosis J84.03 Hypoxia R09.02 Suspected COVID-19 virus infection Z20.822
--- NOTE | 2021-05-20 15:26 | P.PN_ITS ---
Subjective Subjective: Interval history: Dialysis went well yesterday. He was on 11 L of oxygen this morning, however, this is now tapering down to 3 L if he is maintaining his oxygen levels at 93%. Otherwise no acute issues at this time. Hopeful to go home today or tomorrow. Medications: Reviewed: Yes Vitals/I&O/Wt Last Vital Signs Temp 98.4 F 05/20/21 12:00 Pulse 87 05/20/21 12:00 Resp 20 H 05/20/21 12:00 BP 155/85 05/20/21 12:00 Pulse Ox 92 05/20/21 12:00 05/20/21 05/20/21 05/20/21 06:59 14:59 22:59 Intake Total 360 / 360 Output Total 0 / 3300 Balance 0 / -2590 360 / 360 Weight last 48 hrs Weight 91.898 kg Weight 92.5 kg Weight 92.487 kg Weight 93.6 kg Physical Exam Narrative: EXAM NARRATIVE: HEENT: wet mucosa, elevated jvp Lungs: Bilaterally scattered rales CVS: S1 S2 no murmur Abdo: Soft, BS ok Ext x 4 with 2-3+ edema Data : 05/18/21 11:10 05/20/21 05:51 Micro: Microbiology 05/18/21 11:10 Blood Culture - Preliminary Blood NEGATIVE TO DATE 05/18/21 11:04 Blood Culture - Preliminary Blood NEGATIVE TO DATE A&P Additional A&P Information 1. ESRD Plan on HD tomorrow if he remains in house 3K, UF 4L, no heparin given bleeding eval in the am for additional dialysis dose meds for eGFR < 15 will attempt cannulation this evening, but will need Fistulogram in the near future 2. HyperK came down with dialysis 3. Hypertension Will come down with dialysis, no other Rx 4. Hypoxia. CT scan demonstrated no evidence of pulmonary embolism, however, was suggestive of pneumonitis consistent with Covid. Covid testing underway. May be a candidate for Decadron. Possible discharge later on this afternoon, if he remains in the hospital tomorrow I will provide dialysis for him then. Rei Jacob MD Nephro, Attestations Medical Necessity Statement*: ESRD mgmt Coding Level of Care Code Acute Wedding Day Coordinator for [facility]
[2021-05-20] MEDS: cefepime 1,000 MG in sodium chloride 0.9% (plus) 50 ML 100 MG IV (18:15)
[2021-05-20] MEDS: dexamethasone 4 mg/mL INJ 6 MG IVP (18:16)
[2021-05-20] MEDS: oxyCODONE-APAP 5-325 mg Tablet 1 TAB PO (22:27)
[2021-05-21 03:50] VITALS: BP 144/84; PULSE 71; RESP 18; TEMP 36.4; O2SAT 93
[2021-05-21] MEDS: heparin 5,000 unit/mL INJ 1 mL 5000 UNIT SUBCUT (04:21)
[2021-05-21 05:53] LABS: Anion Gap 23.5 (5-19); Blood Urea Nitrogen 70 mg/dL (6-20); Calcium 9.1 mg/dL (8.5-10.5); Carbon Dioxide 25 mmol/L (22-29); Chloride 92 mmol/L (98-107); Glomerular Filtration Rate 5.7 mL/min (90-130); Glucose 188 mg/dL (65-115); Osmolality Calculated 305 mOsm/kg (285-295); Potassium 5.5 mmol/L (3.5-5.1); Sodium 135 mmol/L (136-145)
[2021-05-21 06:03] LABS: Phosphorus 7.8 mg/dL (2.5-4.5)
--- NOTE | 2021-05-21 07:01 | PM.PN ---
Subjective Subjective: Interval history: short of breath and chest sutton when oxygen removed he self cannulated AVF for dialysis last treatment Medications: Reviewed: Yes Vitals/I&O/Wt Last Vital Signs Temp 97.5 F L 05/21/21 03:50 Pulse 71 05/21/21 03:50 Resp 18 05/21/21 03:50 BP 144/84 05/21/21 03:50 Pulse Ox 93 05/21/21 03:50 05/20/21 05/21/21 05/21/21 22:59 06:59 14:59 Intake Total 290 / 650 Balance 290 / 650 Weight last 48 hrs Weight 93.304 kg Weight 91.898 kg Weight 92.5 kg Physical Exam Const: COMMON NORMALS: no acute distress GENERAL APPEARANCE: cooperative Resp: COMMON NORMALS: normal respiratory effort Cardio: COMMON NORMALS: regular rhythm and No rub (Cardio) RHYTHM: regular rhythm Extremity: GENERAL: Yes edema OTHER: AVF + thrill per RN Data : 05/18/21 11:10 05/21/21 05:17 A&P Additional A&P Information 1. ESRD 2. Volume overload 3. Hyperkalemia Plan: HD today; 3.5 L UF as BP tolerates. 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
[2021-05-21 08:00] VITALS: BP 156/64; PULSE 73; RESP 17; TEMP 36.4; O2SAT 97
[2021-05-21] MEDS: lidocaine 5% Patch 1 PATCH TOPICAL (08:04)
--- NOTE | 2021-05-21 10:57 | PM.DCS ---
Discharge Providers Date of Admission: 05/18/21 12:39 Date of Discharge: May 21, 2021 Attending Provider at Admission: Subhash Andrew DO Attending Provider at Discharge: Subhash Andrew DO Primary Care Provider: Michael Eubanks DO Diagnoses at Discharge Discharge Diagnosis (1) ESRD (end stage renal disease): Status: Acute (2) Acute CHF (congestive heart failure): Status: Acute (3) Idiopathic pulmonary hemosiderosis: Status: Acute (4) Hypoxia: Status: Acute (5) Suspected COVID-19 virus infection: Status: Acute Reason for Visit Reason for Visit: SOB, coughing blood, rectal bleeding Hospital Course Hospital Course 51-year-old white male with end-stage renal disease who performs home hemodialysis has been unable to access his fistula. He has missed 5 days of hemodialysis. He presents with severe shortness of breath and lower extremity edema. He is found to be in acute respiratory distress due to CHF secondary to lack of hemodialysis. He was admitted for urgent hemodialysis. There was no problem accessing his fistula per the renal RN. He received 2 days in a row hemodialysis. On the second day he had a increase oxygen requirement up to 11 L. There was concern for PE: However, patient ruled out for PE on CT. Also a Covid testing was done which was negative. Patient was able to access his own fistula without difficulty. And patient was able to wean down to 4 L nasal cannula yesterday the . Patient is now in stable and improved condition on 3 L nasal cannula which is his usual home oxygen level. Physical Exam Narrative: EXAM NARRATIVE: General: NAD, more comfortable, less cough HEENT: no jvd CVS: S1 S2 no murmur Abdo: Soft, BS ok Ext: less edema right leg +2 with less erythema. much improved. Discharge Data Data Completed and Pending: Completed Studies During Hospitalization Category Date Time Status CT angio chest PE protcl [id number] Stat Cat Scan 05/19/21 11:34 Completed XR chest 1V melva ble [id number] Stat Exams 05/18/21 10:29 Completed Pending at discharge Category Date Time Status Blood Culture Sta t Lab 05/18/21 11:04 Results Occult Blood Stoo l [Immunochemical Fecal OCB] Routine Lab 05/19/21 03:39 Uncollected Urinalysis Stat Lab 05/18/21 10:29 Uncollected Labs from last 24 hours 05/21/21 05/19/21 05:17 10:30 Sodium 135 L Potassium 5.5 H Chloride 92 L Carbon Dioxide 25 Anion Gap 23.5 H BUN 70 H Creatinine 9.8 H* GFR Calculation 5.7 L Glucose 188 H Calculated Osmolal ity 305 H Calcium 9.1 Phosphorus 7.8 H* D Nasal/Oral COVID-1 9 PCR Not detected Vitals: Last Vital Signs Temp 97.6 F 05/21/21 08:00 Pulse 73 05/21/21 08:00 Resp 17 05/21/21 08:00 BP 156/64 05/21/21 08:00 Pulse Ox 97 05/21/21 08:00 Discharge Plan Discharge Patient Disposition: Home Condition: Stable Prescriptions: Continued promethazine 12.5 mg tablet 12.5 mg PO Q6H PRN (Reason: Nausea) RF: 0 albuterol sulfate 90 mcg/actuation HFA aerosol inhaler 2 puff inhalation QID PRN (Reason: shortness of breath or wheezing) 30 Days Qty: 8.5 RF: 2 aspirin 81 mg tablet,delayed release (DR/EC) 81 mg PO DAILY RF: 0 nitroglycerin [Nitrostat] 0.4 mg tablet, sublingual 0.4 mg SUBLINGUAL Q5M PRN (Reason: Pain) RF: 0 amlodipine 10 mg tablet 10 mg PO BEDTIME RF: 0 metoprolol tartrate 50 mg tablet 50 mg PO DAILY RF: 0 oxycodone-acetaminophen 5-325 mg tablet 1 tab PO Q6H PRN (Reason: Moderate To Severe Pain) 7 Days Qty: 28 RF: 0 pregabalin [Lyrica] 75 mg capsule 75 mg PO BID RF: 0 fluticasone propionate [Flonase Allergy Relief] 50 mcg/actuation spray,suspension 1 spray intranasal BID PRN (Reason: Nasal Congestion) RF: 0 prednisone 2.5 mg tablet 7.5 mg PO DAILY 30 Days Qty: 90 RF: 2 pantoprazole 40 mg tablet,delayed release (DR/EC) 40 mg PO QAM 90 Days Qty: 90 RF: 3 duloxetine 20 mg capsule,delayed release(DR/EC) See Rx Instructions .ROUTE .COMPLEX Qty: 60 RF: 3 lidocaine-prilocaine 2.5-2.5 % cream See Rx Instructions .ROUTE .COMPLEX RF: 0 calcitriol 0.5 mcg capsule See Rx Instructions .ROUTE .COMPLEX RF: 0 Heparin Injection See Rx Instructions .ROUTE .COMPLEX RF: 0 clonazepam 0.5 mg tablet 1 mg .ROUTE .COMPLEX RF: 0 sevelamer HCl 800 mg tablet 2,400 mg PO TID RF: 0 azathioprine 50 mg tablet 75 mg PO DAILY RF: 0 RenaPlex-D 800 mcg-12.5 mg -2,000 unit tablet See Rx Instructions .ROUTE .COMPLEX RF: 0 Discharge Orders: Discharge Order (Routine); Ordered 05/21/21 Ordered By: Subhash Andrew Referrals: Michael Eubanks DO [Primary Care Provider] - Discharge Diet: Usual diet Discharge Activity: Resume usual activity Patient Instructions: Opioid Safety Activity Restrictions/Additional Instructions: Resume home hemodialysis Tuesday and tuesday. contact your center for further questions or instructions Discharge Attestations Time Spent in Discharge Care*: greater than 30 min Specific Discharge Activities: educating patient, discussing with pcp/other providers, discussing with nurse case management/social workers/dc planners, documenting/other paperwork and evaluating patient/reviewing data Status at Discharge: Cognitive status at discharge: cognitively intact, Behavioral status at discharge: cooperative and independent in ADL's, Quality Metrics Clinical Quality Measures During this hospital stay, did patient experience: None Coding Level of Care Code Acute Chg FW DC note Diagnoses ESRD (end stage renal disease) N18.6 Acute CHF (congestive heart failure) I50.9 Idiopathic pulmonary hemosiderosis J84.03 Hypoxia R09.02 Suspected COVID-19 virus infection Z20.822
[2021-05-21 10:58] VITALS: BP 152/95; PULSE 84; RESP 18; TEMP 36.6
[2021-05-21 11:20] VITALS: BP 152/95; PULSE 84; RESP 18; TEMP 36.6
[2021-05-21 11:38] VITALS: O2SAT 88; O2SAT 95
--- NOTE | 2021-05-21 12:04 | PC.SOCIAL ---
IMM update IMM updated with patient. Verbalized an understanding. Pg 2 copy provided. Initialed, dated, timed, and placed in chart.
[2021-05-21 15:00] VITALS: BP 160/96; PULSE 86; RESP 18; TEMP 36.9
== END 2021-05-21 16:12 | disposition home or self-care (01) | DRG 189 ==
LOC: ER 13:17 → MEDSURG 05-19 09:23
PROVIDERS: Admitting Provider Internal Medicine; Emergency Provider Emergency Medicine; PCP Internal Medicine; Visit Provider Internal Medicine
DX: J96.01 Acute respiratory failure with hypoxia (principal); N18.6 End stage renal disease; I13.2 Hypertensive heart and chronic kidney disease with heart failure and with stage 5 chronic kidney disease, or end stage renal disease; J84.03 Idiopathic pulmonary hemosiderosis; K62.5 Hemorrhage of anus and rectum; I50.9 Heart failure, unspecified; E11.22 Type 2 diabetes mellitus with diabetic chronic kidney disease; Z99.2 Dependence on renal dialysis; Z91.15 Patient's noncompliance with renal dialysis; I25.10 Atherosclerotic heart disease of native coronary artery without angina pectoris; Z95.5 Presence of coronary angioplasty implant and graft; J44.9 Chronic obstructive pulmonary disease, unspecified; Z86.718 Personal history of other venous thrombosis and embolism; E78.2 Mixed hyperlipidemia; E83.119 Hemochromatosis, unspecified; Z87.891 Personal history of nicotine dependence; I25.2 Old myocardial infarction; Z87.01 Personal history of pneumonia (recurrent); Z79.82 Long term (current) use of aspirin; Z79.891 Long term (current) use of opiate analgesic; Z79.52 Long term (current) use of systemic steroids; E87.5 Hyperkalemia; Z79.84 Long term (current) use of oral hypoglycemic drugs
CPT/HCPCS: 36415; 36600; 71045; 71275; 80048; 80051; 80053; 82330; 82805; 83605; 83880; 84100; 84484; 85025; 85610; 85730; 87040; 87426; 87635; 93005; 94640; 96372; 96374; 99285; J0692; J1100; J1644; J2270; J2405; J3535; Q3014; Q9967

== ENCOUNTER 2021-07-06 12:04 | Outpatient (CLI) | payer MEDICARE, MEDICAID, SELFPAY ==
--- NOTE | 2021-07-06 12:09 | USCV_ITS ---
Marlon Dorantes Age: 51 Gender: M : 1970 Exam Date: 07/06/2021 12:42 Ordering Phys: Jaziel Davis MD Technologist: FRANCK [place]am [place] [facility] [place]ication: SOB SOB BP: 139 / 94 HR: 86 Rhythm: Sinus Technical Quality: Adequate MEASUREMENTS (Male / Female) Normal Values 2D ECHO LV Diastolic Diameter PLAX 5.7 cm 4.2 - 5.9 / 3.9 - 5.3 cm LV Systolic Diameter PLAX 5.3 cm IVS Diastolic Thickness 0.3 cm 0.6 - 1.0 / 0.6 - 0.9 cm IVS Systolic Thickness 0.3 cm LVPW Diastolic Thickness 1.2 cm 0.6 - 1.0 / 0.6 - 0.9 cm LVPW Systolic Thickness 1.4 cm LV Ejection Fraction 2D Teich 14.4 % LV Ejection Fraction MOD 2C 16.5 % LV Ejection Fraction 2C AL 17.9 % LA Diameter 4.8 cm LA Width 4.8 cm LA Height 7.0 cm RA Width 5.0 cm RA Height 5.9 cm Aorta at Sinotubular Diameter 2.1 cm DOPPLER AV Peak Velocity 183.0 cm/s LVOT Peak Velocity 93.0 cm/s MV Peak Velocity 560.0 cm/s MV Area PHT 7.9 cm squared Mitral E to A Ratio 1.9 MV E' Velocity 50.0 cm/s Mitral E to MV E' Ratio 12.5 Mitral E to LV E' Lateral Ratio 10.2 Mitral E to LV E' Septal Ratio 16.0 TR Peak Velocity 347.8 cm/s TR Peak Gradient 48.4 mmHg TR Mean Velocity 294.6 cm/s TR Mean Gradient 35.5 mmHg TR Velocity Time Integral 42.5 cm Right Atrial Pressure 3.0 mmHg Pulmonary Artery Systolic Pressu 51.4 mmHg RV Acceleration Time 0.1 s RV Ejection Time 0.3 s RV AcT/ET 0.3 FINDINGS Left Ventricle Severe diffuse hypokinesia of the left ventricle with an ejection fraction of around 18%. Mildly dilated LV cavity Right Ventricle Normal RV size with slightly diminished ejection fraction Right Atrium Mildly increased right atrial size. Left Atrium Moderately increased left atrial size. Mitral Valve Thickened mitral valve. Mild mitral annular calcification. Moderate eccentric mitral regurgitation with a regurgitant jet directed posteriorly Aortic Valve Thickened aortic valve. Tricuspid Valve Moderate tricuspid valve regurgitation. Pulmonic Valve Structurally normal pulmonic valve without significant stenosis. There is no pulmonic regurgitation. Pericardium Normal pericardium without effusion. Aorta Normal aortic annulus size. CONCLUSIONS Severe diffuse hypokinesia of the left ventricle with an ejection fraction of around 18%. Mildly dilated LV cavity. Moderately increased left atrial size. Mildly increased right atrial size. Thickened mitral valve. Mild mitral annular calcification. Moderate eccentric mitral regurgitation with a regurgitant jet directed posteriorly Thickened aortic valve. Moderate tricuspid valve regurgitation. Estimated pulmonary artery peak systolic pressure of 51 mmHg There is no pericardial effusion. There are no intracardiac masses. Compared to the study from 07/03/2020, there is significant drop in the ejection fraction from 30-35% to 18%. Dr Isauro Landis MD [facility]ATED [facility]IN [facility] (Electronically Signed) Final Date: 06 July 2021 13:49 S
== END 2021-07-06 12:05 | disposition home or self-care (01) ==
PROVIDERS: PCP Internal Medicine; Visit Provider Internal Medicine Nephrology
DX: R07.9 Chest pain, unspecified (principal); R06.02 Shortness of breath; I08.3 Combined rheumatic disorders of mitral, aortic and tricuspid valves; R93.1 Abnormal findings on diagnostic imaging of heart and coronary circulation
CPT/HCPCS: 93306

== ENCOUNTER 2021-07-06 13:21 | Inpatient (IN) | payer MEDICARE, MEDICAID, SELFPAY ==
[2021-07-06] VITALS (9 sets, daily range): BP systolic 127–149; BP diastolic 79–103; PULSE 76–89; RESP 18–24; TEMP 36.5–36.9; O2SAT 94–95; BMI 25.8
--- NOTE | 2021-07-06 13:29 | XR_ITS ---
WS: [id number] PORTABLE CHEST HISTORY: dyspnea/cough COMPARISON: 05/18/2021 Mild pulmonary hyperexpansion and changes of emphysema. There is mild pulmonary venous congestion. Sl ight improvement in the pulmonary congestion and opacifications since 05/18/2021. Small bilateral pleu ral effusions, LEFT greater than RIGHT. Cardiac size: Mildly enlarged cardiac silhouette. Mediastinum/Aorta: Mild atherosclerosis aorta. No osseous abnormality seen. XR/XR chest 1V portable [id number] IMPRESSION: 1. Mild pulmonary venous congestion slightly improved since the prior study. 2. Cardiomegaly, stable. 3. Very small bilateral pleural effusions, similar to the prior study.
--- NOTE | 2021-07-06 14:15 | W.ED.CHESTPA ---
HPI - Chest Pain General: Chief Complaint: Chest Pain Stated Complaint: Sent from Dr. Landis/SOB/Abnormal Echo Time Seen by Provider: 07/06/21 13:28 History of Present Illness: HPI narrative: 51-year-old male complaining of increasing shortness of breath and orthopnea for the last several days. He was getting a routine echocardiogram today there is noted to have a markedly decreased ejection fraction compared to his previous one which was already low. His previous EF was in the 30 to 35% range today was calculated at 18%. He is also having some mild chest pain. He intermittently has the symptoms but they are worse today. MD complaint: chest pain and chest heaviness Pertinent past history: coronary artery disease and other (CHF) Onset (ago): day(s) Timing of current episode: constant and increasing Prior episodes: Yes Onset: during rest and during exertion Pain location: left chest Pain radiation: none Severity: moderate Quality: heaviness Relieving factors: sitting upright Exacerbating factors: supine Associated symptoms: Deny abdominal pain, diaphoresis, dyspnea, fever(s), leg edema, nausea, palpitations, sense of impending doom, syncope or vomiting Treatment prior to arrival: none Review of Systems Const: Denies: fever(s) or diaphoresis ENMT: Denies: throat pain, ear or mastoid pain, nasal discharge or nasal congestion Card: Denies: palpitations or syncope Resp: Denies: dyspnea GI: Denies: abdominal pain, nausea or vomiting : Denies: flank pain, dysuria, urinary frequency or urinary urgency Skin/Breast: Denies: rash or pruritus PFS ED PFSH: Medical History Atherosclerotic heart disease of [place] coronary artery without angina pectoris Benign essential hypertension Cardiomyopathy CHF NYHA class III (symptoms with mildly strenuous activities) COPD (chronic obstructive pulmonary disease) Diabetes mellitus DVT (deep venous thrombosis) Dyslipidemia ESRD (end stage renal disease) Fistula Left Wrist Headache Hemochromatosis Hemoptysis Hemoptysis Idiopathic pulmonary hemosiderosis Mixed hyperlipidemia Nicotine dependence, cigarettes, uncomplicated Non-ST elevation (NSTEMI) myocardial infarction Pleural effusion Pneumonia Pulmonary hypertension Right-sided chest pain Sepsis Surgical History H/O elbow surgery H/O hand surgery H/O neck surgery History of back surgery History of intravascular stent placement History of thoracotomy Family History Grandmother , In her 50's Myocardial infarction Father Diabetes Mother Diabetes Social History Smoking and tobacco status: former smoker Quit status (tobacco): has quit using tobacco Year quit tobacco: 1999 - 2PPD x 20 Years Second hand smoke exposure: No Alcohol intake: current Alcohol intake frequency: holidays/special occasions only Lives independently: Yes Household members: spouse Marital status: Current occupational status: disabled History of recent travel: No Current gender identity: Male Physical Exam Const: COMMON NORMALS: no acute distress GENERAL APPEARANCE: cooperative and comfortable ORIENTATION/CONSCIOUSNESS: Yes awake, Yes oriented to person, Yes oriented to place and Yes oriented to time HENMT: COMMON NORMALS: normocephalic, atraumatic and hearing grossly normal bilaterally HEAD & SCALP: normocephalic and atraumatic Neck/C-Spine: GENERAL: Yes JVD Resp: AUSCULTATION: crackles Cardio: COMMON NORMALS: regular rate, regular rhythm and No murmurs present (Cardio) RATE: regular rate RHYTHM: regular rhythm HEART SOUNDS: Murmur heart sound present systolic GI: COMMON NORMALS: Soft to palpation and No hepatosplenomegaly present AUSCULTATION: Yes normoactive bowel sounds PALPATION: Yes Soft to palpation, No Tenderness to palpation present (GI), No Guarding due to palpation present (GI) and Yes No hepatosplenomegaly present Extremity: COMMON NORMALS: normal to inspection, capillary refill normal, no clubbing, cyanosis or edema, no calf tenderness and no pedal edema Neuro: SENSORIUM/ORIENTATION: Yes oriented to person, Yes oriented to place and Yes oriented to time Skin: COMMON NORMALS: no rashes or lesions noted GENERAL SKIN EXAM: no rashes or lesions noted Course Vital Signs: Vital signs: Vital Signs Temperature 98.1 F 07/07/21 13:15 Pulse Rate 65 07/07/21 13:15 Respiratory Rate 20 H 07/07/21 13:15 Blood Pressure 135/96 07/07/21 13:15 Pulse Oximetry 93 07/07/21 09:07 MDM - Chest Pain MDM Narrative: Medical decision making narrative: Labs x-ray and EKG reviewed on the chart. Discussed with hospitalist will admit for rule out. Patient will also require dialysis as he is an end-stage renal patient is on dialysis 3 times a week. Discussed with hospitalist, nephrology and with cardiology orders are written. Lab Data: Labs: Lab Results 07/06/21 07/06/21 07/06/21 Range/Units 14:02 14:02 14:02 WBC 12.0 H (4.0-10.0) 10^3/ uL RBC 3.76 L (4.1-5.3) 10^6/u L Hgb 11.6 L (11.7-16.6) g/dL Hct 36.4 L (42.0-52.0) % MCV 96.8 H (80-94) fl MCH 30.9 (28.0-34.0) pg MCHC 31.9 (30.0-36.0) g/dL RDW 18.3 H (12.1-15.1) % Plt Count 152 (130-400) 10^3/c mm MPV 11.0 H (7.4-10.4) fL Neut % (Auto) 92.3 % Lymph % (Auto) 2.7 % Letcher % (Auto) 3.7 % Eos % (Auto) 0.1 % Baso % (Auto) 0.5 % Neut # (Auto) 11.10 H (1.8-7.7) 10^3/u L Lymph # (Auto) 0.3 L (0.8-4.8) 10^3/u L Letcher # (Auto) 0.4 (0.2-0.9) 10^3/u L Eos # (Auto) 0.0 (0.0-0.8) 10^3/u L Baso # (Auto) 0.1 (0.0-0.1) 10^3/u L Nucleated RBC % (a uto) 0 % Nucleated RBCs # 0.0 /100WBC Sodium 137 (136-145) mmol/L Potassium 6.5 H* (3.5-5.1) mmol/L Chloride 92 L (98-107) mmol/L Carbon Dioxide 27 (22-29) mmol/L Anion Gap 24.5 H (5-19) BUN 50 H (6-20) mg/dL Creatinine 9.6 H* (0.7-1.2) mg/dL GFR Calculation 5.8 L (90-130) mL/min Glucose 157 H (65-115) mg/dL Calculated Osmolal ity 301 H (285-295) mOsm/k g Calcium 9.2 (8.5-10.5) mg/dL Total Bilirubin 1.0 (0.15-1.2) mg/dL AST 15 (0-40) U/L ALT 14 (0-41) U/L Alkaline Phosphata se 70 (40-130) IU/L Troponin T Baselin e 164 H* (0-15) ng/L NT-Pro-B Natriuret Pep 90740 H (0-125) pg/mL Total Protein 7.3 (6.6-8.7) g/dL Albumin 4.8 (3.5-5.2) g/dL Globulin 2.5 (1.3-4.6) g/dL TSH (0.27-4.20) uIU/ mL Hep Bs Antigen (Nonreactive) Hep Bs Antibody (11.5-1000) Hepatitis C Antibo dy (Nonreactive) 07/06/21 07/06/21 Range/Units 14:02 14:02 WBC (4.0-10.0) 10^3/ uL RBC (4.1-5.3) 10^6/u L Hgb (11.7-16.6) g/dL Hct (42.0-52.0) % MCV (80-94) fl MCH (28.0-34.0) pg MCHC (30.0-36.0) g/dL RDW (12.1-15.1) % Plt Count (130-400) 10^3/c mm MPV (7.4-10.4) fL Neut % (Auto) % Lymph % (Auto) % Letcher % (Auto) % Eos % (Auto) % Baso % (Auto) % Neut # (Auto) (1.8-7.7) 10^3/u L Lymph # (Auto) (0.8-4.8) 10^3/u L Letcher # (Auto) (0.2-0.9) 10^3/u L Eos # (Auto) (0.0-0.8) 10^3/u L Baso # (Auto) (0.0-0.1) 10^3/u L Nucleated RBC % (a uto) % Nucleated RBCs # /100WBC Sodium (136-145) mmol/L Potassium (3.5-5.1) mmol/L Chloride (98-107) mmol/L Carbon Dioxide (22-29) mmol/L Anion Gap (5-19) BUN (6-20) mg/dL Creatinine (0.7-1.2) mg/dL GFR Calculation (90-130) mL/min Glucose (65-115) mg/dL Calculated Osmolal ity (285-295) mOsm/k g Calcium (8.5-10.5) mg/dL Total Bilirubin (0.15-1.2) mg/dL AST (0-40) U/L ALT (0-41) U/L Alkaline Phosphata se (40-130) IU/L Troponin T Baselin e (0-15) ng/L NT-Pro-B Natriuret Pep (0-125) pg/mL Total Protein (6.6-8.7) g/dL Albumin (3.5-5.2) g/dL Globulin (1.3-4.6) g/dL TSH 4.01 (0.27-4.20) uIU/ mL Hep Bs Antigen Non-reactive (Nonreactive) Hep Bs Antibody 4.4 L (11.5-1000) Hepatitis C Antibo dy Non-reactive (Nonreactive) Discharge Plan Discharge Patient Disposition: Admitted As Inpatient Admit Provider: Dawson Knowles Clinical Impression: Acute on chronic systolic heart failure, ESRD (end stage renal disease), Chest discomfort, Hyperkalemia, Ischemic cardiomyopathy Condition: Stable Coding Level of Care Code ED 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
[2021-07-06 14:19] LABS: Basophils # 0.1 10^3/uL (0.0-0.1); Basophils % 0.5 %; Eosinophils % 0.1 %; Hematocrit 36.4 % (42.0-52.0); Hemoglobin 11.6 g/dL (11.7-16.6); Lymphocytes # 0.3 10^3/uL (0.8-4.8); Lymphocytes % 2.7 %; Mean Corpuscular HGB Conc 31.9 g/dL (30.0-36.0); Mean Corpuscular Hemoglobin 30.9 pg (28.0-34.0); Mean Corpuscular Volume 96.8 fl (80-94); Monocytes # 0.4 10^3/uL (0.2-0.9); Monocytes % 3.7 %; Neutrophils % 92.3 %; Nucleated Red Blood Cells % 0 %; Platelet Count 152 10^3/cmm (130-400); Red Blood Count 3.76 10^6/uL (4.1-5.3); Red Cell Distribution Width 18.3 % (12.1-15.1)
[2021-07-06 14:39] LABS: Alanine Aminotransferase 14 U/L (0-41); Albumin Level 4.8 g/dL (3.5-5.2); Alkaline Phosphatase 70 IU/L (40-130); Anion Gap 24.5 (5-19); Aspartate Amino Transferase 15 U/L (0-40); Blood Urea Nitrogen 50 mg/dL (6-20); Calcium 9.2 mg/dL (8.5-10.5); Carbon Dioxide 27 mmol/L (22-29); Chloride 92 mmol/L (98-107); Globulin 2.5 g/dL (1.3-4.6); Glomerular Filtration Rate 5.8 mL/min (90-130); Glucose 157 mg/dL (65-115); Osmolality Calculated 301 mOsm/kg (285-295); Sodium 137 mmol/L (136-145); Total Protein 7.3 g/dL (6.6-8.7)
[2021-07-06] MEDS: nitroglycerin 1 gm/inch oint Pkt 0.5 INCH TOPICAL ×2 (14:44→23:00)
[2021-07-06 14:57] LABS: Potassium 6.5 mmol/L (3.5-5.1); Troponin(5th) Baseline 164 ng/L (0-15)
--- NOTE | 2021-07-06 15:29 | ECG_ITS ---
[facility] Test Date: 2021-07-06 Pat Name: Marlon Dorantes Department: Room: 108 Gender: Male Director Economic: : 1970 Requested By: Ramon Ballard Order Number: [id number] Tiffani MD: Sun Valle M.D. Measurements Intervals [place] Rate: 78 P: 12 DC: 154 QRS: -7 QRSD: 103 T: 124 QT: 421 QTc: 481 Interpretive Statements SINUS RHYTHM LEFT VENTRICULAR HYPERTROPHY AND ST-T CHANGE [VOLTAGE CRITERIA PLUS ST/T ABNORMALITY] Compared to ECG 07/06/2021 13:41:04 No significant changes Electronically Signed On 07-06-2021 19:20:13 CDT by Sun Valle M.D. [id number]
--- NOTE | 2021-07-06 16:04 | PM.CONSULT ---
Providers/Reason For Consult Consulting Physician/Specialty*: marilyn germain md / telenephrology Reason for Consult*: hyperkalemia and ESRD care Attending Physician: Dawson Knowles Primary Care Provider: Michael Eubanks DO History of Present Illness History of Present Illness Marlon Dorantes is a 51 year old male hemochromatosis, chronic systolic CHF, ESRD, type 2 DM, COPD. Pt went for a tress test as c/o CP- pt found to have a low EF and hyperkalemia and sent to ER. Renal called for HD. Pt c/o sob, cp, weakness, edema. Review of Systems General: Reports: 10 or more systems reviewed and unremarkable except in HPI and below Narrative: sob, weak, edema, orthopnea, cp Meds/Allergies Home Medications and Allergies Home Medications Medication Instructions Recorded Confirmed Last Taken Type amlodipine 10 mg tablet 10 mg PO BEDTIME 10/31/19 07/06/21 07/05/21 History aspirin 81 mg tablet,delayed 81 mg PO DAILY 10/31/19 07/06/21 07/06/21 History release nitroglycerin 0.4 mg sublingual 0.4 mg SUBLINGUAL Q5M PRN 10/31/19 07/06/21 Unknown History tablet metoprolol tartrate 50 mg tablet 50 mg PO DAILY tab 11/09/19 07/06/21 07/06/21 History RenaPlex-D See Rx Instructions .ROUTE .COMPLEX 02/28/20 07/06/21 07/03/21 History oxycodone-acetaminophen 5 mg-325 1 tab PO Q6H PRN 7 Days #28 tab 03/20/20 07/06/21 07/01/20 Rx mg tablet 5 mg / 325 mg promethazine 12.5 mg tablet 12.5 mg PO Q6H PRN 04/29/20 07/06/21 07/01/20 History 12.5 mg lidocaine-prilocaine See Rx Instructions .ROUTE .COMPLEX 05/24/20 07/06/21 07/03/21 History albuterol sulfate 90 mcg/actuation 2 puff INHALATION QID PRN 30 Days 12/25/20 07/06/21 07/06/21 Rx aerosol inhaler #8.5 g fluticasone propionate 50 1 spray INTRANASAL BID PRN ml 03/10/21 07/06/21 Unknown History mcg/actuation nasal spray,suspension pregabalin 75 mg capsule 75 mg PO BID 03/10/21 07/06/21 07/06/21 History azathioprine 75 mg PO DAILY 05/18/21 07/06/21 07/06/21 History sevelamer HCl 2,400 mg PO TID 05/18/21 07/06/21 05/17/21 History Heparin Injection See Rx Instructions .ROUTE .COMPLEX 07/06/21 07/06/21 07/03/21 History duloxetine 20 mg PO BID 07/06/21 07/06/21 07/06/21 History ferric citrate [Auryxia] See Rx Instructions .ROUTE .COMPLEX 07/06/21 07/06/21 07/06/21 History pantoprazole 40 mg PO DAILY 07/06/21 07/06/21 07/06/21 History prednisone 10 mg PO DAILY 07/06/21 07/06/21 07/06/21 History Allergies Allergy/AdvReac Type Severity Reaction Status Date / Time azithromycin Allergy ADR-Chest Verified 05/13/21 09:20 Pain carvedilol AdvReac ADR-Dizzine Verified 05/13/21 09:20 ss PFSH Acute PFSH: Medical History Atherosclerotic heart disease of [place] coronary artery without angina pectoris Benign essential hypertension Cardiomyopathy CHF NYHA class III (symptoms with mildly strenuous activities) COPD (chronic obstructive pulmonary disease) Diabetes mellitus DVT (deep venous thrombosis) Dyslipidemia ESRD (end stage renal disease) Fistula Left Wrist Headache Hemochromatosis Hemoptysis Hemoptysis Idiopathic pulmonary hemosiderosis Mixed hyperlipidemia Nicotine dependence, cigarettes, uncomplicated Non-ST elevation (NSTEMI) myocardial infarction Pleural effusion Pneumonia Pulmonary hypertension Right-sided chest pain Sepsis Surgical History H/O elbow surgery H/O hand surgery H/O neck surgery History of back surgery History of intravascular stent placement History of thoracotomy Family History Grandmother , In her 50's Myocardial infarction Father Diabetes Mother Diabetes Social History Smoking and tobacco status: former smoker Quit status (tobacco): has quit using tobacco Year quit tobacco: 1999 - 2PPD x 20 Years Second hand smoke exposure: No Alcohol intake: current Alcohol intake frequency: holidays/special occasions only Lives independently: Yes Household members: spouse Marital status: Current occupational status: disabled History of recent travel: No Current gender identity: Male Vitals/I&O/Wt Last Vital Signs Temp 98.5 F 07/06/21 13:34 Pulse 84 07/06/21 13:34 Resp 24 H 07/06/21 13:34 BP 127/85 07/06/21 13:34 Pulse Ox 94 07/06/21 13:34 Weight last 48 hrs Weight 81.647 kg Physical Exam Narrative: EXAM NARRATIVE: sob, swollen, uncomfortable in bed vs noted heent- nc/at, eomi, anicteric neck supple lungs - b/l crackles heart reg abd soft, nt, nd, +BS ext b/l 2+ leg edema neuro- a,a, o x 3 A&P Additional A&P Information 51 yr old man 1. ESRD and hyperkalemia- emergent hd 4 hrs, 2k bath, remove 3l -assess in am for repeat HD -he is on home HD - should dialyze 4+ times per week 2. CHF - acute on systolic and low EF- per cardiology- may need a cath -bnp [id number] 3. 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 Macias 4. renal bone- mineral- metabolism- check phos, pth 5. hgb is good for ESRD seen and examined w/ RN- teleha=lt visit informed consent for telehealth obtained time spent 50 minutes Consult Attestations Medical Necessity Statement: hyperkalemia, volume overload Time Spent in Patient Care: Greater than 35 minutes Coding Level of Care Code Acute Policy Loan Calculator for Ger Godfrey
[2021-07-06 16:54] LABS: Troponin 5 2HR 151.5 ng/L (0-15); Troponin 5 2HR Delta -12.5 ABS# (0-10)
--- NOTE | 2021-07-06 17:16 | P.HP_ITS ---
Providers/Chief Complaint Admitting Physician: Dawson Knowles Primary Care Provider: Michael Eubanks DO Chief Complaint: Sent from Dr. Landis/SOB/Abnormal Echo History of Present Illness Pleasant 51-year-old gentleman with history of ESRD on hemodialysis CAD, ischemic cardiomyopathy, DM 2 in remission, COPD, hemochromatosis, recurrent hemoptysis, hemosiderosis of the lung, pulmonary hypertension, other comorbidities was referred for admission by his [facility] office due to recently progressively worsening dyspnea, orthopnea, last 4 days or so also some burning left-sided chest pain, worsening noted on echocardiogram with ejection fraction decreased down to 18%. Review of Systems Const: Reports: fatigue; Denies: fever(s), chills, body aches or malaise Eyes: Denies: change in vision or eye redness ENMT: Denies: throat pain, oral sores or ear or mastoid pain Card: Reports: edema, dyspnea on exertion and orthopnea; Denies: chest pain or pre-syncope Resp: Reports: dyspnea and non-productive cough (chronic); Denies: productive cough, change in phlegm color or hemoptysis (prior Hx, not currently) GI: Reports: hematochezia; Denies: abdominal pain, nausea, vomiting, diarrhea, constipation or melena : Denies: flank pain, difficulty urinating, urinary frequency or hematuria Musc: Denies: back pain, joint swelling or joint redness Skin/Breast: Denies: rash, sores or new lesions Neuro: Denies: headache(s), numbness in extremities, weakness in extremities, dizziness, confusion or seizure-like activity Endo: Denies: polyuria or polydipsia Pranav/Lymph: Denies: easy bleeding or purpura All/Imm: Denies: urticaria, throat swelling or tongue swelling Medications/Allergies Home Medications Medication Instructions Recorded Confirmed Last Taken Type amlodipine 10 mg tablet 10 mg PO BEDTIME 10/31/19 07/06/21 07/05/21 History aspirin 81 mg tablet,delayed 81 mg PO DAILY 10/31/19 07/06/21 07/06/21 History release nitroglycerin 0.4 mg sublingual 0.4 mg SUBLINGUAL Q5M PRN 10/31/19 07/06/21 Unknown History tablet metoprolol tartrate 50 mg tablet 50 mg PO DAILY tab 11/09/19 07/06/21 07/06/21 History RenaPlex-D See Rx Instructions .ROUTE .COMPLEX 02/28/20 07/06/21 07/03/21 History oxycodone-acetaminophen 5 mg-325 1 tab PO Q6H PRN 7 Days #28 tab 03/20/20 07/06/21 07/01/20 Rx mg tablet 5 mg / 325 mg promethazine 12.5 mg tablet 12.5 mg PO Q6H PRN 04/29/20 07/06/21 07/01/20 History 12.5 mg lidocaine-prilocaine See Rx Instructions .ROUTE .COMPLEX 05/24/20 07/06/21 07/03/21 History albuterol sulfate 90 mcg/actuation 2 puff INHALATION QID PRN 30 Days 12/25/20 07/06/21 07/06/21 Rx aerosol inhaler #8.5 g fluticasone propionate 50 1 spray INTRANASAL BID PRN ml 03/10/21 07/06/21 Unkno wn History mcg/actuation nasal spray,suspension pregabalin 75 mg capsule 75 mg PO BID 03/10/21 07/06/21 07/06/21 History azathioprine 75 mg PO DAILY 05/18/21 07/06/21 07/06/21 History sevelamer HCl 2,400 mg PO TID 05/18/21 07/06/21 05/17/21 History Heparin Injection See Rx Instructions .ROUTE .COMPLEX 07/06/21 07/06/21 07/03/21 History duloxetine 20 mg PO BID 07/06/21 07/06/21 07/06/21 History ferric citrate [Auryxia] See Rx Instructions .ROUTE .COMPLEX 07/06/21 07/06/21 07/06/21 History pantoprazole 40 mg PO DAILY 07/06/21 07/06/21 07/06/21 History prednisone 10 mg PO DAILY 07/06/21 07/06/21 07/06/21 History Allergies Allergy/AdvReac Type Severity Reaction Status Date / Time azithromycin Allergy ADR-Chest Verified 05/13/21 09:20 Pain carvedilol AdvReac ADR-Dizzine Verified 05/13/21 09:20 ss PFSH Acute PFSH: Medical History Atherosclerotic heart disease of [place] coronary artery without angina pectoris Benign essential hypertension Cardiomyopathy CHF NYHA class III (symptoms with mildly strenuous activities) COPD (chronic obstructive pulmonary disease) Diabetes mellitus DVT (deep venous thrombosis) Dyslipidemia ESRD (end stage renal disease) Fistula Left Wrist Headache Hemochromatosis Hemoptysis Hemoptysis Idiopathic pulmonary hemosiderosis Mixed hyperlipidemia Nicotine dependence, cigarettes, uncomplicated Non-ST elevation (NSTEMI) myocardial infarction Pleural effusion Pneumonia Pulmonary hypertension Right-sided chest pain Sepsis Surgical History H/O elbow surgery H/O hand surgery H/O neck surgery History of back surgery History of intravascular stent placement History of thoracotomy Family History Grandmother , In her 50's Myocardial infarction Father Diabetes Mother Diabetes Social History Smoking and tobacco status: former smoker Quit status (tobacco): has quit using tobacco Year quit tobacco: 1999 - 2PPD x 20 Years Second hand smoke exposure: No Alcohol intake: current Alcohol intake frequency: holidays/special occasions only Lives independently: Yes Household members: spouse Marital status: Current occupational status: disabled History of recent travel: No Current gender identity: Male Vitals/I&O/Wt Last Vital Signs Temp 98.5 F 07/06/21 13:34 Pulse 76 07/06/21 16:16 Resp 22 H 07/06/21 16:16 BP 137/103 07/06/21 16:16 Pulse Ox 94 07/06/21 16:16 Weight last 48 hrs Weight 81.647 kg Physical Exam Const: COMMON NORMALS: no acute distress, patient oriented x3 and alert GENERAL APPEARANCE: cooperative and frail appearing ORIE NTATION/CONSCIOUSNESS: Yes awake (Wakes up to voice) HENMT: COMMON NORMALS: oropharynx normal Neck/C-Spine: COMMON NORMALS: no JVD Resp: COMMON NORMALS: normal respiratory effort and clear to auscultation bilaterally AUSCULTATION: clear to auscultation bilaterally and crackles (Minor fine crackles at bases R>L) Cardio: COMMON NORMALS: no JVD, regular rhythm, S1 normal heart sound present, S2 normal heart sound present and No murmurs present (Cardio) RHYTHM: regular rhythm HEART SOUNDS: S1 normal heart sound present and S2 normal heart sound present GI: COMMON NORMALS: Normal to inspection, nondistended, normoactive bowel sounds present, Soft to palpation and non-tender PALPATION: Yes Soft to palpation Extremity: COMMON NORMALS: no joint enlargement GENERAL: Yes edema (3+ BL) Neuro: COMMON NORMALS: patient oriented x3 and moves all extremities Skin: COMMON NORMALS: no rashes or lesions noted GENERAL SKIN EXAM: no rashes or lesions noted and ecchymosis Data : 07/06/21 14:02 07/06/21 14:02 A&P Assessment and plan (1) Cardiomyopathy: Worsening cardiomyopathy, EF down to 18%. Troponin elevated, mild decrease. Intermittent chest discomfort, left-sided, radiating to the back. Full troponin, EKG series. Telemetry monitoring. Appreciate cardiology recommendations. Check ferritin level. Discussed with him possibilities, in terms of worsening schema cardiomyopathy. Possibly relation to hemochromatosis. Status: Acute (2) Acute systolic CHF (congestive heart failure): Worsening dyspnea on exertion, significant orthopnea. 3+ bilateral lower extremity edema. Hemodialysis today. Additional investigations with worsening cardiomyopathy as above. Status: Acute (3) Chest discomfort: Complete troponin, EKG series. Nitropaste is in place. Monitor on telemetry. Status: Acute (4) Hypoxia: Chronically on as needed oxygen. Currently requiring 3 L nasal cannula. Does not appear to have focal pneumonia. CHF as above. HD today. Discussed additional with him possibility of VTE with lower extremity swelling, poor mobility, chest discomfort, hypoxia. Discussed consideration of additional assessment versus empiric treatment with anticoagulation, assessment in the morning. Some risk with anticoagulation given he reports some occasional hematochezia, although hemoglobin is good. He is agreeable to anticoagulation for now given risk that CTA could not delay additional assessment by coronary angiography, as well as VQ scan was ordered, but cannot be performed until tomorrow. Chronically he is also on 10 mg prednisone as well as azathioprine due to pul monary hemosiderosis. Follows with pulmonology. Monitor for any signs of superimposed pulmonary infection. Repeat chest x-ray. Status: Acute (5) ESRD (end stage renal disease): Status: Acute (6) Hyperkalemia: Hemodialysis today. Renal hemodialysis diet. Status: Acute (7) Hemochromatosis: Check ferritin. Avoid iron supplements. Vitamin C. Follow-up with hematology. Status: Acute Attestations Medical Necessity Statement*: Admission of over 2 midnights is been to be needed for assessment of management of worsening cardiomyopathy, acute CHF, new hypoxia, chest discomfort and gentleman with underlying chronic ischemic cardiomyopathy, ESRD. Coding Level of Care Code Acute It Associate for g Fwd Exam Comprehensive Diagnoses Cardiomyopathy I42.9 Acute systolic CHF (congestive heart failure) I50.21 Chest discomfort R07.89 Hypoxia R09.02 ESRD (end stage renal disease) N18.6 Hyperkalemia E87.5 Hemochromatosis E83.119
--- NOTE | 2021-07-06 17:30 | PC.NURSE ---
Pt arrived to room 108 from ER at approximately 1715. Pt left for dialysis at approximately 1720.
[2021-07-06 18:05] LABS: Ferritin 248 ng/mL (30-400)
--- NOTE | 2021-07-06 18:16 | PC.HD ---
Patient to dialysis room with complaints of 7/10 pain all over, especially his left chest, back, and arm. Patient's O2 sats were 86% on 3L NC at 1800. RN notified. Will continue to monitor.
[2021-07-06 18:53] LABS: Uric Acid 7.1 mg/dL (3.4-7.0)
--- NOTE | 2021-07-06 19:15 | PC.NURSE ---
Critical troponin 151.5 was called on pt before pt arrived to room 108 from ER. notified of critical lab at 1704. No orders was given.
--- NOTE | 2021-07-06 19:29 | ECG_ITS ---
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 Measurements Intervals [place] Rate: 84 P: 17 VT: 146 QRS: -10 QRSD: 102 T: 128 QT: 400 QTc: 474 Interpretive Statements SINUS RHYTHM LEFT VENTRICULAR HYPERTROPHY AND ST-T CHANGE [VOLTAGE CRITERIA PLUS ST/T ABNORMALITY] Compared to ECG 05/18/2021 18:11:25 Left ventricular hypertrophy now present ST (T wave) deviation now present Sinus tachycardia no longer present T-wave abnormality no longer present Possible ischemia no longer present Electronically Signed On 07-06-2021 19:20:42 CDT by Sun Valle M.D. [email or web address] [email or web address] center[facility] ([id number]
--- NOTE | 2021-07-06 19:38 | P.CONIM_ITS ---
Providers/Reason For Consult Consulting Physician/Specialty*: IONA Landis MD/cardiology Reason for Consult*: Patient with worsening LV systolic function/shortness of breath/chest pain Attending Physician: Dawson Knowles Primary Care Provider: Michael Eubanks DO History of Present Illness History of Present Illness Marlon Dorantes is a 51 year old male history of coronary artery disease, cardiomyopathy, recurrent decompensated heart failure, is admitted to the hospital through the emergency room. He had an outpatient echocardiogram today which revealed ejection fraction of 18%. This is a significant worsening from the previous echocardiogram findings. He also was complaining of increasing shortness of breath, difficulty lying down. Because of the worsening shortness of breath, he was evaluated in the emergency room. In the emergency room he also was complaining of left-sided chest pain. He is admitted to hospital for further evaluation and management. This patient is diagnosed with end-stage renal disease and is on hemodialysis. He is getting dialysis 3 times a week. He was on home dialysis but lately because of the difficulty in getting the access, he is getting the dialysis at the clinic. He was supposed to be getting dialysis today. Patient is complaining of pain on the left side of the chest, radiated to the left arm. The pain has been going on for the last couple of months. It may last for several hours. It gets worse with movements of the left shoulder and also with exertion. Even walking across the room or walking to the kitchen may make the pain worse. He has a baseline shortness of breath with activities. He denies any fever or chills. No cough. Patient is known to have atherosclerotic heart disease and had previous PCI. His most recent cardiac catheterization was in December of last year. Findings are as follows Moderate diffuse disease in the proximal LAD, first diagonal and thecircumflex artery. Patent stented segment of the mid LAD. Mild to moderatediffuse disease in the other vessels. The LV cavity appears to be moderately dilated. There is severe diffusehypokinesia of the left ventricle. The LV ejection fraction was around 25 to 30%. The LVEDP was 27 mmHg. There was mild mitral regurgitation. Nosignificant mitral valve prolapse. The right heart catheterization revealedmoderate pulmonary hypertension. The PA pressure was 63/27 with a mean of 41.Pulmonary treatments pressure was 19 mmHg. The right atrial pressure was 10.Cardiac output was 4.17 with an index of 2.0. He also is known to have Hemoccult, ptosis and idiopathic pulmonary hemosiderosis. Has a history of hemoptysis. Lately he has not had any hemoptysis. He is complaining of rectal bleeding. In June of last year, he was in the hospital with hemoptysis. At that time also he was complaining of chest pain. He was supposed to get a myocardial perfusion imaging afterwards. For some reason, it was not done. He was found to have an ejection fraction of around 30% by echocardiogram in June of last year. The most recent echocardiogram done today revealed an ejection fraction of around 18%. He was wearing LifeVest in the past but because of the inconvenience, he refused to wear it. We had discussions about placing a prophylactic ICD. But the patient refused it in the past. Patient has been progressively getting weaker lately. No other specific complaints. His second troponin T was found to be elevated chronically with no significant delta. Review of Systems Narrative: CONSTITUTIONAL: No fever or chills. Generalized tiredness and weakness EYES: No blurring of vision or other visual disturbances lately. ENT: No hoarseness of voice, auditory disturbances or sore throat. CARDIOVASCULAR: As mentioned above. RESPIRATORY: No significant cough. History of hemoptysis GASTROINTESTINAL: History of rectal bleed GENITOURINARY: End-stage renal disease, on hemodialysis mentioned above INTEGUMENTARY: No skin rashes or history of skin cancer. NEURO: No transient ischemic attacks or amaurosis. PSYCHIATRIC: No history of psychosis or major depression. HEMATOLOGIC: Chronic anemia ENDOCRINE: No history of polyuria or polydipsia. MUSCULOSKELETAL: No recent joint pain or swelling. ALLERGY/IMMUNOLOGY: As mentioned above. Meds/Allergies Home Medications and Allergies Home Medications Medication Instructions Recorded Confirmed Last Taken Type amlodipine 10 mg tablet 10 mg PO BEDTIME 10/31/19 07/06/21 07/05/21 History aspirin 81 mg tablet,delayed 81 mg PO DAILY 10/31/19 07/06/21 07/06/21 History release nitroglycerin 0.4 mg sublingual 0.4 mg SUBLINGUAL Q5M PRN 10/31/19 07/06/21 Unknown History tablet metoprolol tartrate 50 mg tablet 50 mg PO DAILY tab 11/09/19 07/06/21 07/06/21 History RenaPlex-D See Rx Instructions .ROUTE .COMPLEX 02/28/20 07/06/21 07/03/21 His tory oxycodone-acetaminophen 5 mg-325 1 tab PO Q6H PRN 7 Days #28 tab 03/20/20 07/06/21 07/01/20 Rx mg tablet 5 mg / 325 mg promethazine 12.5 mg tablet 12.5 mg PO Q6H PRN 04/29/20 07/06/21 07/01/20 History 12.5 mg lidocaine-prilocaine See Rx Instructions .ROUTE .COMPLEX 05/24/20 07/06/21 07/03/21 History albuterol sulfate 90 mcg/actuation 2 puff INHALATION QID PRN 30 Days 12/25/20 07/06/21 07/06/21 Rx aerosol inhaler #8.5 g fluticasone propionate 50 1 spray INTRANASAL BID PRN ml 03/10/21 07/06/21 Unknown History mcg/actuation nasal spray,suspension pregabalin 75 mg capsule 75 mg PO BID 03/10/21 07/06/21 07/06/21 History azathioprine 75 mg PO DAILY 05/18/21 07/06/21 07/06/21 History sevelamer HCl 2,400 mg PO TID 05/18/21 07/06/21 05/17/21 History Heparin Injection See Rx Instructions .ROUTE .COMPLEX 07/06/21 07/06/21 07/03/21 History duloxetine 20 mg PO BID 07/06/21 07/06/21 07/06/21 History ferric citrate [Auryxia] See Rx Instructions .ROUTE .COMPLEX 07/06/21 07/06/21 07/06/21 History pantoprazole 40 mg PO DAILY 07/06/21 07/06/21 07/06/21 History prednisone 10 mg PO DAILY 07/06/21 07/06/21 07/06/21 History Allergies Allergy/AdvReac Type Severity Reaction Status Date / Time azithromycin Allergy ADR-Chest Verified 05/13/21 09:20 Pain carvedilol AdvReac ADR-Dizzine Verified 05/13/21 09:20 ss PFSH Acute PFSH: Medical History Atherosclerotic heart disease of [place] coronary artery without angina pectoris Benign essential hypertension Cardiomyopathy CHF NYHA class III (symptoms with mildly strenuous activities) COPD (chronic obstructive pulmonary disease) Diabetes mellitus DVT (deep venous thrombosis) Dyslipidemia ESRD (end stage renal disease) Fistula Left Wrist Headache Hemochromatosis Hemoptysis Hemoptysis Idiopathic pulmonary hemosiderosis Mixed hyperlipidemia Nicotine dependence, cigarettes, uncomplicated Non-ST elevation (NSTEMI) myocardial infarction Pleural effusion Pneumonia Pulmonary hypertension Right-sided chest pain Sepsis Surgical History H/O elbow surgery H/O hand surgery H/O neck surgery History of back surgery History of intravascular stent placement History of thoracotomy Family History Grandmother , In her 50's Myocardial infarction Father Diabetes Mother Diabetes Social History Smoking and tobacco status: former smoker Quit status (tobacco): has quit using tobacco Year quit tobacco: 1999 - 2PPD x 20 Years Second hand smoke exposure: No Alcohol intake: current Alcohol intake frequency: holidays/special occasions only Lives independently: Yes Household members: spouse Marital status: Current occupational status: disabled History of recent travel: No Current gender identity: Male Vitals/I&O/Wt Last Vital Signs Temp 97.7 F 07/06/21 18:11 Pulse 89 07/06/21 18:11 Resp 20 H 07/06/21 18:11 BP 136/79 07/06/21 18:11 Pulse Ox 94 07/06/21 17:31 Weight last 48 hrs Weight 180 lb Physical Exam Narrative: EXAM NARRATIVE: GENERAL: The patient is alert and oriented times three. Not in any acute distress. HEENT:Mild pallor, icterus or lymphadenopathy. The pupils are reactant to light. Oral cavity: There are no mucous membrane lesions. Funduscopic examination: The fundus is not visualized NECK: Trachea appears to be central. No masses noted. No JVD or thyromegaly appreciated. No carotid bruit. RESPIRATORY: Chest is symmetrical. No intercostals muscle retraction or any accessory muscle activation. There is no chest wall tenderness. Breath sounds are heard bilaterally. No rales or rhonchi heard. No evidence of any consolidation. BREASTS: Deferred. HEART: Patient has diffuse impulse in the apex. No other palpable precordial events. Normal S1 and S2 with a soft S3. No pericardial rub or any click heard. ABDOMEN: No vessel pulsations or distention. No tenderness. No organomegaly appreciated. No abdominal bruit. Bowel sounds are normally heard. : Deferred. RECTAL: Deferred. LYMPHATIC: No lymphadenopathy noted in the neck or groin. EXTREMITIES: 2+ edema both lower extremities. No cyanosis. MUSCULOSKELETAL: No acute joint deformities or swelling. SKIN: There are no significant scars or skin rash noted. NEUROPSYCHIATRIC: The patient is alert and oriented x3. Slightly lethargic. No focal motor deficits. Data Labs: Other Labs: Laboratory Last Values WBC 12.0 10^3/uL (4.0 -10.0) H 07/06/21 14:02 RBC 3.76 10^6/uL (4.1 -5.3) L 07/06/21 14:02 Hgb 11.6 g/dL (11.7-1 6.6) L 07/06/21 14:02 Hct 36.4 % (42.0-52.0 ) L 07/06/21 14:02 MCV 96.8 fl (80-94) H 07/06/21 14:02 MCH 30.9 pg (28.0-34. 0) 07/06/21 14:02 MCHC 31.9 g/dL (30.0-3 6.0) 07/06/21 14:02 RDW 18.3 % (12.1-15.1 ) H 07/06/21 14:02 Plt Count 152 10^3/cmm (130 -400) 07/06/21 14:02 MPV 11.0 fL (7.4-10.4 ) H 07/06/21 14:02 Neut % (Auto) 92.3 % 07/06/21 14:02 Lymph % (Auto) 2.7 % 07/06/21 14:02 Stanton % (Auto) 3.7 % 07/06/21 14:02 Eos % (Auto) 0.1 % 07/06/21 14:02 Baso % (Auto) 0.5 % 07/06/21 14:02 Neut # (Auto) 11.10 10^3/uL (1. 8-7.7) H 07/06/21 14:02 Lymph # (Auto) 0.3 10^3/uL (0.8- 4.8) L 07/06/21 14:02 Stanton # (Auto) 0.4 10^3/uL (0.2- 0.9) 07/06/21 14:02 Eos # (Auto) 0.0 10^3/uL (0.0- 0.8) 07/06/21 14:02 Baso # (Auto) 0.1 10^3/uL (0.0- 0.1) 07/06/21 14:02 Nucleated RBC % (a uto) 0 % 07/06/21 14:02 Nucleated RBCs # 0.0 /100WBC 07/06/21 14:02 Sodium 137 mmol/L (136-1 45) 07/06/21 14:02 Potassium 6.5 mmol/L (3.5-5 .1) H* 07/06/21 14:02 Chloride 92 mmol/L (98-107 ) L 07/06/21 14:02 Carbon Dioxide 27 mmol/L (22-29) 07/06/21 14:02 Anion Gap 24.5 (5-19) H 07/06/21 14:02 BUN 50 mg/dL (6-20) H 07/06/21 14:02 Creatinine 9.6 mg/dL (0.7-1. 2) H* 07/06/21 14:02 GFR Calculation 5.8 mL/min (90-13 0) L 07/06/21 14:02 Glucose 157 mg/dL (65-115 ) H 07/06/21 14:02 Calculated Osmolal ity 301 mOsm/kg (285- 295) H 07/06/21 14:02 Uric Acid 7.1 mg/dL (3.4-7. 0) H 07/06/21 16:00 Calcium 9.2 mg/dL (8.5-10 .5) 07/06/21 14:02 Ferritin 248 ng/mL (30-400 ) 07/06/21 16:00 Total Bilirubin 1.0 mg/dL (0.15-1 .2) 07/06/21 14:02 AST 15 U/L (0-40) 07/06/21 14:02 ALT 14 U/L (0-41) 07/06/21 14:02 Alkaline Phosphata se 70 IU/L (40-130) 07/06/21 14:02 Troponin T Baselin e 164 ng/L (0-15) H* 07/06/21 14:02 Troponin T 120 Min [place] 151.5 ng/L (0-15) H 07/06/21 16:00 Delta Troponin T -12.5 ABS# (0-10) L 07/06/21 16:00 NT-Pro-B Natriuret Pep 96675 pg/mL (0-12 5) H 07/06/21 14:02 Total Protein 7.3 g/dL (6.6-8.7 ) 07/06/21 14:02 Albumin 4.8 g/dL (3.5-5.2 ) 07/06/21 14:02 Globulin 2.5 g/dL (1.3-4.6 ) 07/06/21 14:02 A&P Assessment and plan (1) Acute on chronic systolic heart failure: Most likely related to fluid overload and end-stage renal disease. May continue with the dialysis as per schedule. Volume extraction as per the nephrology service Has been on Entresto and for some reason he is not on this at this time. Also need to discuss about SGLT2 inhibitor. May continue the topical nitrates Status: Acute (2) Atherosclerotic heart disease of [place] coronary artery with other forms of angina pectoris: Patient chest pain is very atypical. Somewhat chronic. We may consider a repeat cardiac catheterization, to reevaluate the coronary status and decide on further management. In view of the marked worsening of the LV systolic function, this might be more appropriate. We will coordinate this with the nephrology service as to the timing of the procedure Status: Acute (3) Idiopathic pulmonary hemosiderosis: Currently the patient has no hemoptysis. May continue on the current management as per the pulmonology Status: Acute (4) ESRD (end stage renal disease): On hemodialysis, 3 times a week, frequency need to be adjusted as per nephrology Status: Acute (5) Hemochromatosis: Status: Acute (6) Pulmonary hypertension: Continue on the current management. Status: Acute (7) Ischemic cardiomyopathy: Discussed about ICD in the past but the patient was reluctant. Once again discussed with the patient about the need for this procedure and the implications. He seems to have some second thoughts about this. Will let me know. Status: Acute Consult Attestations Medical Necessity Statement: Patient requires continued hospital stay for close monitoring and further management Coding Level of Care Code Acute Flight Mechanic for Ger Godfrey History Detailed Exam Detailed Medical Decision Making High Complexity Diagnoses Acute on chronic systolic heart failure I50.23 Atherosclerotic heart disease of [place] coronary artery with other forms of angina pectoris I25.118 Idiopathic pulmonary hemosiderosis J84.03 ESRD (end stage renal disease) N18.6 Hemochromatosis E83.119 Pulmonary hypertension I27.20 Ischemic cardiomyopathy I25.5
[2021-07-06 20:49] LABS: Thyroid Stimulating Hormone 4.01 uIU/mL (0.27-4.20)
[2021-07-06] MEDS: oxyCODONE-APAP 5-325 mg Tablet 1 TAB PO (20:54)
--- NOTE | 2021-07-06 21:04 | PC.NURSE ---
Pain: Pt currently in dialysis and is c/o chest pain requesting medication. Primary nurse not able to come to the floor so television script writer gave PRN pain medication. Primary nurse to the floor after administration to assess.
[2021-07-06 21:23] LABS: Hepatitis B Surface AB 4.4 (11.5-1000); Hepatitis B Surface Antigen Non-Reactive (Nonreactive); Hepatitis C Virus Antibody Non-Reactive (Nonreactive)
[2021-07-06 21:34] LABS: Troponin 5 6HR Delta -16.8 ng/L (0-12)
[2021-07-06 21:35] LABS: Troponin 5 6HR 147.2 ng/L (0-15)
[2021-07-06] MEDS: enoxaparin 80 mg/0.8 mL Syringe SUBCUT (22:58)
[2021-07-06] MEDS: sevelamer 800 mg Tablet 2400 MG PO (23:01)
[2021-07-07] VITALS (17 sets, daily range): BP systolic 114–150; BP diastolic 74–96; PULSE 65–93; RESP 16–24; TEMP 36.4–36.7; O2SAT 92–97
[2021-07-07] MEDS: oxyCODONE-APAP 5-325 mg Tablet 1 TAB PO ×4 (02:58→22:42)
[2021-07-07] MEDS: nitroglycerin 1 gm/inch oint Pkt 0.5 INCH TOPICAL ×4 (03:52→20:53)
[2021-07-07 05:25] LABS: Basophils # 0.1 10^3/uL (0.0-0.1); Basophils % 0.6 %; Eosinophils # 0.1 10^3/uL (0.0-0.8); Hematocrit 30.7 % (42.0-52.0); Hemoglobin 9.7 g/dL (11.7-16.6); Lymphocytes # 0.5 10^3/uL (0.8-4.8); Lymphocytes % 6.1 %; Mean Corpuscular HGB Conc 31.6 g/dL (30.0-36.0); Mean Corpuscular Hemoglobin 31.1 pg (28.0-34.0); Mean Corpuscular Volume 98.4 fl (80-94); Mean Platelet Volume 10.7 fL (7.4-10.4); Monocytes # 0.6 10^3/uL (0.2-0.9); Monocytes % 7.1 %; Neutrophils # 7.12 10^3/uL (1.8-7.7); Neutrophils % 84.6 %; Nucleated Red Blood Cells % 0 %; Platelet Count 118 10^3/cmm (130-400); Red Blood Count 3.12 10^6/uL (4.1-5.3); White Blood Count 8.4 10^3/uL (4.0-10.0)
[2021-07-07 05:37] LABS: Alanine Aminotransferase 11 U/L (0-41); Albumin Level 3.9 g/dL (3.5-5.2); Alkaline Phosphatase 60 IU/L (40-130); Anion Gap 18.7 (5-19); Aspartate Amino Transferase 14 U/L (0-40); Blood Urea Nitrogen 26 mg/dL (6-20); Calcium 8.8 mg/dL (8.5-10.5); Carbon Dioxide 29 mmol/L (22-29); Globulin 2.3 g/dL (1.3-4.6); Glomerular Filtration Rate 10.4 mL/min (90-130); Glucose 73 mg/dL (65-115); Magnesium 1.9 mg/dL (1.7-2.3); Osmolality Calculated 287 mOsm/kg (285-295); Phosphorus 4.8 mg/dL (2.5-4.5); Potassium 4.7 mmol/L (3.5-5.1); Sodium 137 mmol/L (136-145); Total Bilirubin 1.2 mg/dL (0.15-1.2); Total Protein 6.2 g/dL (6.6-8.7)
[2021-07-07 05:39] LABS: Calcium 8.8 mg/dL (8.5-10.5)
[2021-07-07 05:41] LABS: Chloride 94 mmol/L (98-107)
[2021-07-07 05:51] LABS: 25 Hydroxy Vitamin D 46 ng/mL (30-100)
--- NOTE | 2021-07-07 06:00 | XR_ITS ---
WS: [id number] XR chest 1V portable 32032 REASON FOR EXAM: Hypoxia FINDINGS: Bilateral infiltrates. Compared to the previous examination of 07/06/2021 there are areas of coalescence of the previously de fined infiltrative process in the right lower lung. No other interval change or new finding. XR/XR chest 1V portable 12539 IMPRESSION: Evolving infiltrative change in the right lower lung as above.
[2021-07-07 06:10] LABS: Parathyroid Hormone 231.2 pg/mL (15-65)
--- NOTE | 2021-07-07 07:08 | PM.PN ---
Subjective Subjective: Interval history: still swollen and cp. no hunter, no fevers, no abd psin, + sob and edema. he cramped at end of dialysis last night Medications: Reviewed: Yes Medication Review Details: Current Medications Albuterol Sulfate (Albuterol 8 Gm Mdi) 2 puff INHALATION QID PRN PRN Reason: shortness of breath or wheezing Aspirin (Aspirin 81 Mg Ec Tablet) 81 mg PO DAILY [facility] Azathioprine (Azathioprine 50 Mg Tablet) 75 mg PO DAILY [facility] Duloxetine HCl (Duloxetine 20 Mg Capsule) 20 mg PO BID [facility] Enoxaparin Sodium (Enoxaparin 80 Mg/0.8 Ml Syringe) 80 mg SUBCUT Q24H [facility] Last Admin: 07/06/21 22:58 Dose: 80 mg Documented by: Fluticasone Propionate (Fluticasone Nasal [place] 16gm Btl) 1 spray INTRANASAL BID PRN PRN Reason: Nasal Congestion Lidocaine/Prilocaine (Lidocaine-Prilocaine Cream 5 Gm) 0 applic TOPICAL PRN [facility] Metoprolol Tartrate (Metoprolol Tartrate 50 Mg Tablet) 50 mg PO DAILY [facility] Nitroglycerin (Nitroglycerin 0.4 Mg Sublingual Tablet) 0.4 mg SUBLINGUAL Q5M PRN PRN Reason: Pain Nitroglycerin (Nitroglycerin 1 Gm/Inch Oint Pkt) 0.5 inch TOPICAL Q6H [facility] Last Admin: 07/07/21 03:52 Dose: 0.5 inch Documented by: Ondansetron HCl (Ondansetron 4 Mg Tablet) 4 mg PO Q8H PRN PRN Reason: NAUSEA Oxycodone/Acetaminophen (Oxycodone-Apap 5-325 Mg Tablet) 1 tab PO Q6H PRN PRN Reason: Moderate To Severe Pain Last Admin: 07/07/21 02:58 Dose: 1 tab Documented by: Pantoprazole Sodium (Pantoprazole Dr 40 Mg Tablet) 40 mg PO DAILY [facility] Prednisone (Prednisone 10 Mg Tablet) 10 mg PO DAILY [facility] Pregabalin (Pregabalin 75 Mg Capsule) 75 mg PO BID [facility] Sevelamer Carbonate (Sevelamer 800 Mg Tablet) 2,400 mg PO TID [facility] Last Admin: 07/06/21 23:01 Dose: 2,400 mg Documented by: Vitals/I&O/Wt Last Vital Signs Temp 97.7 F 07/06/21 22:17 Pulse 90 07/07/21 05:54 Resp 18 07/07/21 02:58 BP 144/89 07/07/21 04:00 Pulse Ox 92 07/07/21 04:00 07/06/21 07/07/21 07/07/21 22:59 06:59 14:59 Intake Total 400 / 400 150 / 550 Output Total 3300 / 3300 0 / 3300 Balance -2900 / -2900 150 / -2750 Weight last 48 hrs Weight 91.263 kg Weight 91.5 kg Weight 81.647 kg Physical Exam Narrative: EXAM NARRATIVE: swollen, uncomfortable in bed vs noted heent- nc/at, eomi, anicteric neck supple lungs - b/l crackles and dull bases heart reg +ROCAEL abd soft, nt, nd, +BS ext b/l 2+ leg edema neuro- a,a, o x 3 Data : 07/07/21 04:40 07/07/21 04:40 A&P Additional A&P Information 51 yr old man 1. ESRD and hyperkalemia-s/p HD yesterday -was on HHD 4 x/ week till May- had difficulty w/ assessing AVF- now at [facility] HD 3 x/ week -repeat HD now- for fluid removal and full HD in am 2. CHF - acute on systolic and low EF- per cardiology- may need a cath -for ICD per cardiology -bnp [id number] 3. 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 Macias 4. renal bone- mineral- metabolism- normal phos, pth 231 -await vit d 5. anemia-hgb dropped overnight seen and examined w/ RN- telehealth visit informed consent for telehealth obtained time spent 30 minutes Attestations Medical Necessity Statement*: chf, cp, sob, edema Time Spent in Patient Care: 16 - 35 minutes Coding Level of Care Code Acute Raw Finish Mill Operator for Ger Godfrey
[2021-07-07] MEDS: metoprolol tartrate 50 mg Tablet PO (08:50)
[2021-07-07] MEDS: pantoprazole DR 40 mg Tablet PO (08:50)
[2021-07-07] MEDS: duloxetine 20 mg Capsule PO ×2 (08:50→18:04)
[2021-07-07] MEDS: predniSONE 10 mg Tablet PO (08:50)
[2021-07-07] MEDS: aspirin 81 mg EC Tablet PO (08:50)
[2021-07-07] MEDS: pregabalin 75 mg Capsule PO ×2 (08:51→18:04)
[2021-07-07 10:47] LABS: Glucose Point of Care 180 mg/dL (70-110)
--- NOTE | 2021-07-07 10:49 | ECG_ITS ---
[facility] Test Date: 2021-07-07 Pat Name: Marlon Dorantes Department: Room: 108 Gender: Male Evening Or Night Nurse Supervisor: : 1970 Requested By: Dawson Knowles Order Number: [id number] Reading MD: Isauro Landis M.D. Measurements Intervals [place] Rate: 67 P: 23 KS: 149 QRS: 12 QRSD: 106 T: 167 QT: 471 QTc: 499 Interpretive Statements SINUS RHYTHM LEFT VENTRICULAR HYPERTROPHY AND ST-T CHANGE [VOLTAGE CRITERIA PLUS ST/T ABNORMALITY] Compared to ECG 07/06/2021 16:59:16 No significant changes Electronically Signed On 07-07-2021 23:50:46 CDT by Isauro Landis M.D. [id number]
--- NOTE | 2021-07-07 11:10 | PC.HD ---
Patient brought to dialysis room for treatment. Immediately prior to initiation of treatment, patient c/o feeling dizzy, like he was about to pass out, and very weak. He became unresponsive for a few seconds and was promptly aroused by gently shaking his arm and calling his name. BP was 121/80, HR 73, RR 20, O2 94% on 3L NC. Primary RN notified. Blood sugar was 180. Stat EKG was ordered. Presently, patient is receiving treatment, sleepy but arousable and able to answer questions appropriately. His O2 sats are currently 97%, respirations even and slightly labored. He is currently resting without complaints.
[2021-07-07 12:01] LABS: Troponin T (5th) Once 247 ng/L (0-15)
--- NOTE | 2021-07-07 13:17 | PC.HD ---
Patient dozed throughout most of his HD treatment, awakening occasionally to c/o weakness and fatigue. His O2 sats remained in the mid- to low-90s. Vitals were stable. By the end of his trx, patient was still very fatigued and short of breath, but was able to carry on a conversation with this RN, which he was unable to do at the beginning of his trx. Retail Salesworker aware of patient's treatment course.
--- NOTE | 2021-07-07 15:34 | PM.PN ---
Subjective Subjective: Interval history: This patient had a second hemodialysis today. He continues to have the fatigue/weakness. His appetite is poor for the last 3 days. No fever or chills. No cough. No abdominal pain or dysuria. No other specific complaints. He has been having class II-III heart failure symptoms. Medications: Reviewed: Yes Medication Review Details: Current Medications Albuterol Sulfate (Albuterol 8 Gm Mdi) 2 puff INHALATION QID PRN PRN Reason: shortness of breath or wheezing Aspirin (Aspirin 81 Mg Ec Tablet) 81 mg PO DAILY [facility] Last Admin: 07/07/21 08:50 Dose: 81 mg Documented by: Azathioprine (Azathioprine 50 Mg Tablet) 75 mg PO DAILY [facility] Last Admin: 07/07/21 08:50 Dose: 75 mg Documented by: Duloxetine HCl (Duloxetine 20 Mg Capsule) 20 mg PO BID [facility] Last Admin: 07/07/21 08:50 Dose: 20 mg Documented by: Enoxaparin Sodium (Enoxaparin 80 Mg/0.8 Ml Syringe) 80 mg SUBCUT Q24H [facility] Last Admin: 07/06/21 22:58 Dose: 80 mg Documented by: Fluticasone Propionate (Fluticasone Nasal [place] 16gm Btl) 1 spray INTRANASAL BID PRN PRN Reason: Nasal Congestion Lidocaine/Prilocaine (Lidocaine-Prilocaine Cream 5 Gm) 0 applic TOPICAL PRN [facility] Metoprolol Tartrate (Metoprolol Tartrate 50 Mg Tablet) 50 mg PO DAILY [facility] Last Admin: 07/07/21 08:50 Dose: 50 mg Documented by: Nitroglycerin (Nitroglycerin 0.4 Mg Sublingual Tablet) 0.4 mg SUBLINGUAL Q5M PRN PRN Reason: Pain Nitroglycerin (Nitroglycerin 1 Gm/Inch Oint Pkt) 0.5 inch TOPICAL Q6H [facility] Last Admin: 07/07/21 08:52 Dose: 0.5 inch Documented by: Ondansetron HCl (Ondansetron 4 Mg Tablet) 4 mg PO Q8H PRN PRN Reason: NAUSEA Oxycodone/Acetaminophen (Oxycodone-Apap 5-325 Mg Tablet) 1 tab PO Q6H PRN PRN Reason: Moderate To Severe Pain Last Admin: 07/07/21 09:07 Dose: 1 tab Documented by: Pantoprazole Sodium (Pantoprazole Dr 40 Mg Tablet) 40 mg PO DAILY [facility] Last Admin: 07/07/21 08:50 Dose: 40 mg Documented by: Prednisone (Prednisone 10 Mg Tablet) 10 mg PO DAILY [facility] Last Admin: 07/07/21 08:50 Dose: 10 mg Documented by: Pregabalin (Pregabalin 75 Mg Capsule) 75 mg PO BID [facility] Last Admin: 07/07/21 08:51 Dose: 75 mg Documented by: Sevelamer Carbonate (Sevelamer 800 Mg Tablet) 2,400 mg PO TID [facility] Last Admin: 07/07/21 08:48 Dose: Not Given Documented by: Vitals/I&O/Wt Last Vital Signs Temp 98.1 F 07/07/21 13:15 Pulse 74 07/07/21 14:00 Resp 20 H 07/07/21 13:15 BP 135/96 07/07/21 13:15 Pulse Ox 93 07/07/21 09:07 07/07/21 07/07/21 07/07/21 06:59 14:59 22:59 Intake Total 150 / 550 300 / 300 Output Total 0 / 3300 2300 / 2300 Balance 150 / -2750 -2000 / -2000 Weight last 48 hrs Weight 196 lb 6.91 oz Weight 201 lb 3.2 oz Weight 201 lb 11.567 oz Weight 180 lb Physical Exam Narrative: EXAM NARRATIVE: GENERAL: The patient is alert and oriented times three. Not in any acute distress. Somewhat lethargic. HEENT:Mild pallor, icterus or lymphadenopathy. The pupils are reactant to light. Oral cavity: There are no mucous membrane lesions. Funduscopic examination: The fundus is not visualized NECK: Trachea appears to be central. No masses noted. No JVD or thyromegaly appreciated. No carotid bruit. RESPIRATORY: Chest is symmetrical. No intercostals muscle retraction or any accessory muscle activation. There is no chest wall tenderness. Breath sounds are heard bilaterally. No rales or rhonchi heard. No evidence of any consolidation. BREASTS: Deferred. HEART: Patient has diffuse impulse in the apex. No other palpable precordial events. Normal S1 and S2 with a soft S3. No pericardial rub or any click heard. ABDOMEN: No vessel pulsations or distention. No tenderness. No organomegaly appreciated. No abdominal bruit. Bowel sounds are normally heard. : Deferred. RECTAL: Deferred. LYMPHATIC: No lymphadenopathy noted in the neck or groin. EXTREMITIES:1- 2+ edema both lower extremities. No cyanosis. MUSCULOSKELETAL: No acute joint deformities or swelling. SKIN: There are no significant scars or skin rash noted. NEUROPSYCHIATRIC: The patient is alert and oriented x3. Slightly lethargic. No focal motor deficits. Data : 07/09/21 04:26 07/09/21 04:26 A&P Assessment and plan (1) Acute on chronic systolic heart failure: The heart failure symptoms are better now. Has been on Entresto and for some reason he is not on this at this time. We may go ahead and restart it. Status: Acute (2) Atherosclerotic heart disease of [place] coronary artery with other forms of angina pectoris: Patient chest pain is very atypical. Somewhat chronic. We may consider a repeat cardiac catheterization, to reevaluate the coronary status and decide on further management. In view of the marked worsening of the LV systolic function, this might be more appropriate. We will coordinate this with the nephrology service as to the timing of the procedure. Discussed with Dr Garg-today nephrology and also Dr. Davis, the patient's floor cashier. It was thought to be appropriate to go ahead with the coronary angiogram. Based on the results, further recommendations will be made. The procedure was discussed with the patient in detail with the risk and benefits. The risk of bleeding, hematoma, vascular injury, myocardial infarction, CVA, acute decompensated heart failure and concomitant complications were discussed. Patient understood this well and consented to proceed. Status: Acute (3) Idiopathic pulmonary hemosiderosis: Currently the patient has no hemoptysis. May continue on the current management as per the pulmonology Status: Acute (4) ESRD (end stage renal disease): On hemodialysis, had 2 hemodialysis of far since hospital admission. May consider doing the dialysis again after the angiogram. Status: Acute (5) Hemochromatosis: Continue on the current measures. Status: Acute (6) Pulmonary hypertension: Continue on the current management. Status: Acute (7) Ischemic cardiomyopathy: Discussed about ICD in the past but the patient was reluctant. Once again discussed with the patient about the need for this procedure and the implications. Patient is now willing to go for the ICD/DEALER ACCOUNT MANAGER-D, if recommended. After the cardiac radiation, we will make a decision on this. We will plan to go ahead with this tomorrow afternoon. Status: Acute Attestations Medical Necessity Statement*: Patient requires continued hospital stay for close monitoring and further management Coding Level of Care Code Acute Sheet Metal Engineer for Chg Fwd Diagnoses Acute on chronic systolic heart failure I50.23 Atherosclerotic heart disease of [place] coronary artery with other forms of angina pectoris I25.118 Idiopathic pulmonary hemosiderosis J84.03 ESRD (end stage renal disease) N18.6 Hemochromatosis E83.119 Pulmonary hypertension I27.20 Ischemic cardiomyopathy I25.5
[2021-07-07] MEDS: albuterol 8 gm MDI 2 PUFF INHALATION (15:50)
--- NOTE | 2021-07-07 17:00 | PC.NURSE ---
Pt sitting up in bed watching tv and talking to staff. Pt had no c/o pain or discomfort at the present time. No needs voiced. will cont to monitor.
--- NOTE | 2021-07-07 17:14 | NM_ITS ---
WS: [id number] NUCLEAR MEDICINE VENTILATION/PERFUSION LUNG SCAN HISTORY: Dyspnea, hypoxia, chest tightness, leg swelling, assess for COMPARISON: 01/03/2020, chest radiograph 07/07/2021 TECHNIQUE: Ventilation: 32.5 mCi of Technetium 99 DTPA aerosol inhaled. Perfusion: 5.3 mCi of technetium 99m MAA IV. Coarse uptake of the radionuclide from COPD on the ventilatory portion. There is very good distributi on of the radionuclide on the perfusion examination. There are several matching defects. No unmatched defects. Heart is enlarged. NM/ND pul vent and perfus* 92009 IMPRESSION: Low probability pulmonary embolism.
--- NOTE | 2021-07-07 17:14 | USCV_ITS ---
Marlon Dorantes Age: 51 Gender: M : 1970 Exam Date: 07/07/2021 06:38 Ordering Phys: Dawson Knowles MD Technologist: Exam Location: [facility] [place] Indication: SWELLING HISTORY: Lower extremity swelling. PROCEDURES: The venous duplex Doppler examination of both lower extremities was performed in the standard fashion. The following venous structures were evaluated: common femoral vein, profunda vein, proximal portion of the greater saphenous vein, superficial femoral vein, and the popliteal vein. FINDINGS: Normal 2-D Doppler and augmentation and compressibility throughout the lower extremity venous structures. Additional imaging through the proximal calf veins also reveals no thrombus. Limited evaluation of the greater saphenous vein is patent with no thrombus. CONCLUSIONS No DVT bilateral lower extremities. Dr. Dorothea Huynh DO (Electronically Signed) Final Date: 07 July 2021 08:16 S
[2021-07-07] MEDS: enoxaparin 80 mg/0.8 mL Syringe SUBCUT (20:53)
--- NOTE | 2021-07-07 21:30 | PM.PN ---
Subjective Subjective: Interval history: Overall he is doing a bit better today after dialysis, but still feeling waves of discomfort going across his chest which come and go making him concerned about whether he may have arrhythmia. Discussed with him we are monitoring telemetry. On telemetry only artifact noted, no arrhythmia. Vitals/I&O/Wt Last Vital Signs Temp 97.5 F L 07/07/21 20:00 Pulse 74 07/07/21 20:00 Resp 16 07/07/21 20:00 BP 123/87 07/07/21 20:00 Pulse Ox 95 07/07/21 20:00 07/07/21 07/07/21 07/07/21 06:59 14:59 22:59 Intake Total 150 / 550 300 / 300 Output Total 0 / 3300 2300 / 2300 Balance 150 / -2750 -2000 / -2000 Weight last 48 hrs Weight 89.1 kg Weight 91.263 kg Weight 91.5 kg Weight 81.647 kg Physical Exam Const: COMMON NORMALS: no acute distress, patient oriented x3 and alert GENERAL APPEARANCE: cooperative ORIENTATION/CONSCIOUSNESS: Yes awake HENMT: COMMON NORMALS: oropharynx normal Neck/C-Spine: COMMON NORMALS: no JVD Resp: COMMON NORMALS: normal respiratory effort and clear to auscultation bilaterally AUSCULTATION: clear to auscultation bilaterally Cardio: COMMON NORMALS: no JVD, regular rhythm, S1 normal heart sound present, S2 normal heart sound present and No murmurs present (Cardio) RHYTHM: regular rhythm HEART SOUNDS: S1 normal heart sound present and S2 normal heart sound present GI: COMMON NORMALS: Normal to inspection, nondistended, normoactive bowel sounds present, Soft to palpation and non-tender PALPATION: Yes Soft to palpation Extremity: COMMON NORMALS: no joint enlargement GENERAL: Yes edema (2+ BL) Neuro: COMMON NORMALS: patient oriented x3 and moves all extremities SENSORIUM/ORIENTATION: Yes alert Skin: COMMON NORMALS: no rashes or lesions noted GENERAL SKIN EXAM: no rashes or lesions noted and ecchymosis Data : 07/07/21 04:40 07/07/21 04:40 A&P Assessment and plan (1) Cardiomyopathy: Reports waves of short episodes of chest discomfort. On elevation. Appreciate cardiology recommendations. Plans for additional assessment by coronary geography. Worsening cardiomyopathy, EF down to 18%. Troponin elevated, mild decrease. Intermittent chest discomfort, left-sided, radiating to the back. Full troponin, EKG series. Telemetry monitoring. Ferritin within normal limits at 248, but higher than what would like to see with hemochromatosis. Discussed with him will need to follow-up with hematology for consideration of phlebotomies which also may be made difficult/complicated by ongoing anemia with ESRD. He reports in the past also receiving a few PRBC transfusions. Additional consideration of ICD as per his discussion with cardiology. Status: Acute (2) Acute systolic CHF (congestive heart failure): Doing better after hemodialysis. Still episodes of chest discomfort as above. Hemodialysis, appreciate nephrology recommendations. Additional investigations with worsening cardiomyopathy as above. Status: Acute (3) Chest discomfort: Troponin elevation. Episodes of chest discomfort. Appreciate cardiology recommendations, additional plans for assessment with coronary angiography. No PE on VQ scan, however, given persistent episodes of chest comfort continue anticoagulation for now. Status: Acute (4) Hypoxia: Continues on 3 L of oxygen. Doing slightly better after dialysis. Appreciate nephrology recommendations. Repeat hemodialysis. VQ scan low probability for PE. Duplex negative for DVT. 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 Follows with pulmonology. Monitor for any signs of superimposed pulmonary infection. Repeat chest x-ray. Status: Acute (5) ESRD (end stage renal disease): Status: Acute (6) Hyperkalemia: Resolved. Renal hemodialysis diet. Status: Acute (7) Hemochromatosis: Check ferritin. Avoid iron supplements. Vitamin C. Follow-up with hematology. Status: Acute Attestations Medical Necessity Statement*: Continue admission for assessment management of worsening cardiomyopathy, acute systolic CHF, additional assessment of possible progression of underlying coronary disease. Coding Level of Care Code Acute Guard Museum for [facility] Fwd Diagnoses Cardiomyopathy I42.9 Acute systolic CHF (congestive heart failure) I50.21 Chest discomfort R07.89 Hypoxia R09.02 ESRD (end stage renal disease) N18.6 Hyperkalemia E87.5 Hemochromatosis E83.119
[2021-07-08] VITALS (24 sets, daily range): BP systolic 103–143; BP diastolic 66–97; PULSE 58–87; RESP 14–20; TEMP 36.3–36.5; O2SAT 92–95
[2021-07-08] MEDS: nitroglycerin 1 gm/inch oint Pkt 0.5 INCH TOPICAL ×3 (04:15→22:22)
[2021-07-08 05:01] LABS: Basophils % 0.5 %; Eosinophils # 0.1 10^3/uL (0.0-0.8); Hemoglobin 10.2 g/dL (11.7-16.6); Lymphocytes # 0.6 10^3/uL (0.8-4.8); Lymphocytes % 6.8 %; Mean Corpuscular HGB Conc 31.9 g/dL (30.0-36.0); Mean Corpuscular Hemoglobin 31.5 pg (28.0-34.0); Mean Corpuscular Volume 98.8 fl (80-94); Mean Platelet Volume 10.6 fL (7.4-10.4); Monocytes # 0.7 10^3/uL (0.2-0.9); Monocytes % 8.7 %; Neutrophils # 6.81 10^3/uL (1.8-7.7); Neutrophils % 82.4 %; Nucleated Red Blood Cells % 0 %; Platelet Count 119 10^3/cmm (130-400); Red Blood Count 3.24 10^6/uL (4.1-5.3); Red Cell Distribution Width 17.7 % (12.1-15.1); White Blood Count 8.3 10^3/uL (4.0-10.0)
[2021-07-08 05:26] LABS: Alanine Aminotransferase 10 U/L (0-41); Albumin Level 3.9 g/dL (3.5-5.2); Alkaline Phosphatase 60 IU/L (40-130); Anion Gap 23.1 (5-19); Aspartate Amino Transferase 14 U/L (0-40); Blood Urea Nitrogen 44 mg/dL (6-20); Calcium 8.8 mg/dL (8.5-10.5); Carbon Dioxide 26 mmol/L (22-29); Chloride 93 mmol/L (98-107); Globulin 2.6 g/dL (1.3-4.6); Glomerular Filtration Rate 7.4 mL/min (90-130); Glucose 103 mg/dL (65-115); Magnesium 2.2 mg/dL (1.7-2.3); Osmolality Calculated 295 mOsm/kg (285-295); Phosphorus 6.5 mg/dL (2.5-4.5); Potassium 5.1 mmol/L (3.5-5.1); Sodium 137 mmol/L (136-145); Total Bilirubin 0.9 mg/dL (0.15-1.2); Total Protein 6.5 g/dL (6.6-8.7)
--- NOTE | 2021-07-08 07:21 | PC.NURSE ---
Shift Note Frequent safety and comfort rounds continue. Orders and/or nursing care completed as indicated. Patient monitored for response to intervention and treatment(s). Education provided includes plan of care. Patient and/or personal service representative verbalized understanding. Will continue to monitor.
[2021-07-08] MEDS: sevelamer 800 mg Tablet 2400 MG PO (07:27)
[2021-07-08] MEDS: albuterol 8 gm MDI 2 PUFF INHALATION (07:47)
[2021-07-08] MEDS: pregabalin 75 mg Capsule PO ×2 (09:11→19:07)
[2021-07-08] MEDS: oxyCODONE-APAP 5-325 mg Tablet 1 TAB PO ×2 (09:11→19:07)
[2021-07-08] MEDS: aspirin 81 mg EC Tablet PO (09:11)
[2021-07-08] MEDS: metoprolol tartrate 50 mg Tablet PO (09:13)
[2021-07-08] MEDS: pantoprazole DR 40 mg Tablet PO (09:13)
[2021-07-08] MEDS: duloxetine 20 mg Capsule PO ×2 (09:14→19:07)
[2021-07-08] MEDS: predniSONE 10 mg Tablet PO (09:15)
--- NOTE | 2021-07-08 09:20 | PC.CHAP ---
Pastoral Care Encounter/Spiritual Assessment Type of Contact [] Declined industrial garage servicer visit [] Patient/Family/Request visit [] Outpatient visit [] Follow-up visit [] Physician referral [] Code/Alert [x] Routine visit [] Staff referral [] Actively dying [] Patient sleeping [] Family support [] [] Out of room [] Palliative care [] [] Receiving care in room [] Pre-surgical visit [] Trauma [] Long length of stay [] ICU visit [] Other: Relational/Emotional Strength [] Patient feels connected with others/family/visitors/staff [] Distress [] Loneliness/isolation [] Abandonment Spirituality of Patient [] Person of Ashley [] Attends Zoroastrian of their Ashley [] Believes in Prayer [] Reads Bible or Voodoo materials [] There are Spiritual issues to be addressed [place] [employer] Interventions [x] Prayer [x] Active listening [x] Non-anxious presence [x] Spiritual/emotional support [] Crisis/trauma care [] Spiritual counseling [] Bereavement support [] Provided bereavement packet [] Provided Bible/devotional materials [] Provided toy/stuffed animal, coloring book to patient or family member [] Provided Communion [] Anointing/[place] [] Salvation [x] Completed spiritual assessment [] Other: Impact on Illness or Injury [] Angry [] Fearful [] Anxious [] Often cries [] Exhaustion [] Unable to work [] Unable to attend alevism [] Unable to walk/stand [] Unable to read [] Unable to drive [] Unable to eat/drink [] Unable to sleep [] Unable to be with family [] Patient intubated [] Other: Summary patient seems to be stressed... prayed for peace and understand of all his surroundings. Time spent with patient 10 min
--- NOTE | 2021-07-08 09:22 | PC.CHAP ---
Pastoral Care Encounter/Spiritual Assessment Type of Contact [] Declined manager hvac visit [] Patient/Family/Request visit [] Outpatient visit [] Follow-up visit [] Physician referral [] Code/Alert [] Routine visit [] Staff referral [] Actively dying [] Patient sleeping [] Family support [] [] Out of room [] Palliative care [] [] Receiving care in room [] Pre-surgical visit [] Trauma [] Long length of stay [] ICU visit [x] Other: correction of prior entry.... Relational/Emotional Strength [] Patient feels connected with others/family/visitors/staff [] Distress [] Loneliness/isolation [] Abandonment Spirituality of Patient [] Person of Ashley [] Attends Restorationist of their Ashley [] Believes in Prayer [] Reads Bible or Confucianist materials [] There are Spiritual issues to be addressed [place] Interventions [] Prayer [] Active listening [] Non-anxious presence [] Spiritual/emotional support [] Crisis/trauma care [] Spiritual counseling [] Bereavement support [] Provided bereavement packet [] Provided Bible/devotional materials [] Provided toy/stuffed animal, coloring book to patient or family member [] Provided Communion [] Anointing/[place] [] Salvation [] Completed spiritual assessment [] Other: Impact on Illness or Injury [] Angry [] Fearful [] Anxious [] Often cries [] Exhaustion [] Unable to work [] Unable to attend muslim [] Unable to walk/stand [] Unable to read [] Unable to drive [] Unable to eat/drink [] Unable to sleep [] Unable to be with family [] Patient intubated [] Other: Summary correction... this patient is resting well... waiting for tests..... Time spent with patient
[2021-07-08] MEDS: sacubitril/valsartan 24-26 mg Tablet 1 EACH PO ×2 (10:07→19:07)
--- NOTE | 2021-07-08 11:32 | P.PN_ITS ---
Documented by User: CHELY Gorman STDNT 07/08/21 11:53 Subjective Subjective: Interval history: Marlon reports that he feels weak, tired, and short of breath today. He will go for angiogram and possible stent placement this evening with dialysis to follow. Medications: Reviewed: Yes Vitals/I&O/Wt Last Vital Signs Temp 97.4 F L 07/08/21 04:00 Pulse 85 07/08/21 07:47 Resp 20 H 07/08/21 09:11 BP 143/97 07/08/21 07:33 Pulse Ox 95 07/08/21 07:47 07/07/21 07/08/21 07/08/21 22:59 06:59 14:59 Intake Total 250 / 550 Output Total 0 / 2300 0 / 2300 Balance 0 / -2000 250 / -1750 Weight last 48 hrs Weight 89.312 kg Weight 89.1 kg Weight 91.263 kg Weight 91.5 kg Weight 81.647 kg Physical Exam Narrative: EXAM NARRATIVE: GENERAL: Weak male in no acute distress. HEENT: Pupils reactive. Oropharynx clear. NECK: Supple. No JVD or lymphadenopathy. RESPIRATORY: Clear to auscultation bilaterally. No wheezes rales or rhonchi. CARDIO: Regular rate and rhythm. No murmurs rubs or gallops. ABDOMEN: Soft. Nontender, nondistended. Bowel sounds present. No organomegaly. : Deferred. EXTREMITIES:1+ edema both lower extremities. No cyanosis. SKIN: No rash NEUROPSYCHIATRIC: A&O x3. No focal motor deficits. Data : 07/08/21 04:28 07/08/21 04:28 Other data: Anion gap 23.1. Phosphorus 6.5. Venous duplex no DVT bilateral lower extremities. Pulmonary perfusion scan low probability of pulmonary embolism. A&P Assessment and plan (1) Cardiomyopathy: Reports waves of short episodes of chest discomfort. Plans for coronary angiogram today. Worsening cardiomyopathy, EF down to 18%. Troponin elevated, mild decrease. Intermittent chest discomfort, left-sided, radiating to the back. Full trop onin, EKG series. Telemetry monitoring. Ferritin within normal limits at 248, but higher than what would like to see with hemochromatosis. Discussed with him will need to follow-up with hematology for consideration of phlebotomies which also may be made difficult/complicated by ongoing anemia with ESRD. He reports in the past also receiving a few PRBC transfusions. Additional consideration of ICD as per his discussion with cardiology. Status: Acute (2) Acute systolic CHF (congestive heart failure): Doing better after hemodialysis. Still episodes of chest discomfort as above. Hemodialysis planned for this evening. appreciate nephrology recommendations. Additional investigations with worsening cardiomyopathy as above. Status: Acute (3) Chest discomfort: Angiogram with possible stent placement scheduled for this afternoon. Troponin elevation yesterday. Episodes of chest discomfort. No PE on VQ scan, however, given persistent episodes of chest comfort continue anticoagulation for now. Status: Acute (4) Hypoxia: Continues on 3 L of oxygen. Doing slightly better after dialysis. Repeat hemodialysis today. VQ scan low probability for PE. Duplex negative for DVT. 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 Follows with pulmonology. Monitor for any signs of superimposed pulmonary infection. Repeat chest x-ray. Status: Acute (5) ESRD (end stage renal disease): Dialysis planned for this evening. Status: Acute (6) Hyperkalemia: Resolved. Renal hemodialysis diet. Status: Acute (7) Hemochromatosis: Ferritin 248. Avoid iron supplements. Vitamin C. Follow-up with hematology. Status: Acute Additional A&P Information Lovenox for DVT prophylaxis Full code Coding Level of Care Code Acute Aged Or Disabled Carer for Chg Fwd Diagnoses Cardiomyopathy I42.9 Acute systolic CHF (congestive heart failure) I50.21 Chest discomfort R07.89 Hypoxia R09.02 ESRD (end stage renal disease) N18.6 Hyperkalemia E87.5 Hemochromatosis E83.119 Documented by User: Dawson Knowles MD 07/08/21 16:07 Data : 07/08/21 04:28 07/08/21 04:28 Attestations Medical Necessity Statement*: Continue assess management of episodes of chest pain, management of progression of coronary disease requiring PCI, subsequently hemodialysis. Other Attestations: Patient seen and examined independently, findings discussed with medical student. He is doing okay today. Awaiting coronary angiography. Hungry. Has had several chest discomfort episodes. Discussing with cardiology during procedure is found to have high-grade in-stent occlusion of LAD, as well as occlusion of OM2 although unclear whether this 1 is hemodynamically significant pending FFR. Pending intervention for LAD. Subsequently hemodialysis after coronary angiography. Discussed with him again regarding follow-up with hematology for hemochromatosis, consideration of treatment to bring ferritin down to desired range. PE GEN: Awake, alert, pleasant, conversant. Not in distress. HEENT: NC, AT, pupils equal. Neck No JVD Card: RRR, no murmur Pulmonary: CTAB, minimal crackles at bases. EXT: Quite significant improvement in lower extremity edema, 1+ residual. Coding Level of Care Code Acute Aged Or Disabled Carer for Chg Fwd Diagnoses Cardiomyopathy I42.9 Acute systolic CHF (congestive heart failure) I50.21 Chest discomfort R07.89 Hypoxia R09.02 ESRD (end stage renal disease) N18.6 Hyperkalemia E87.5 Hemochromatosis E83.119
--- NOTE | 2021-07-08 12:00 | XACV_ITS ---
Exam Room: [facility] Ht: 178 cm Wt: 89 kg BSA: 2.11 m2 Gender: Male : 1970 Any Known Allergies: Other Exam Priority: Routine Procedure(s): Procedure Description: Diagnostic procedure Procedure Description: PCI procedure Procedure Description: Left Heart Catheterization Procedure Description: Drug Eluting Coronary Stent Procedure Description: PTCA Procedure Description: Miscellaneous Procedure Description: ACT Procedure Description: Coronary Angiography Diagnostic Cath Status: Urgent Diagnostic Findings * Coronary angiography shows right dominance. * Left main is a medium caliber vessel with no significant stenotic lesions. * The left anterior descending artery was found to have a long stented area in the mid segment of the artery. There are some high-grade in-stent stenosis in the segment. The proximal segment of the first diagonal branch was found to have 40 to 50% narrowing. No other significant stenotic lesions. * The circumflex artery is a medium caliber vessel which appears to have moderate diffuse disease proximally with lesions anywhere from 40 to 50%. The distal artery appears to bifurcate. The bifurcation branches were found to have 20 to 30% diffuse irregular narrowing. No other significant stenotic lesions. * The intermedius artery is a medium caliber vessel which was found to have moderate diffuse disease proximally. There was a napkin ring type of lesion in this area, appears be high-grade lesion. * The right coronary artery is a small to medium caliber vessel, appears to be dominant. 30 to 40% diffuse irregular narrowing was noted in the proximal and mid segment of the artery. The PDA and the PLV branches also were found to have mild to moderate diffuse narrowing. PCI Status: Urgent Interventional Findings * Mid Left Anterior Descendin% stenosis treated with a AB TREK 2.50X15 RX BALLOON, SARI Alberto JOSE 2.75X22 ALEXYS, and SARI BORJA EUPHORA RX [id number] BALLOON. 0% residual stenosis, BRENDA: 3 flow. Conclusions 1. This is a 51-year-old white male with history of coronary disease and previous myocardial infarction, status post PCI of the LAD, presenting with increasing chest pain, lethargy and shortness of breath. He was found to have elevated troponin T with a significant delta. His echocardiogram will worsening of the LV systolic function. Ejection fraction from 30 -35% to around 18%. In view of the patient's ongoing symptoms and the significant drop in the LV ejection fraction, in order to further evaluate his coronary status, a repeat cardiac catheterization was recommended. Patient underwent left heart catheterization with left and right coronary angiogram today. The findings are as follows. 2. No significant lesions of the left main artery. The stented segment of the mid LAD was found to have a high-grade lesion around 90% in-stent stenosis. The left circumflex artery has moderate disease proximally. Intermedius artery was found to have moderately severe lesion proximally, appears to be a napkin ring type lesion. The right coronary artery was found to have mild to moderate diffuse disease. Elevated LVEDP of 22 mmHg. 3. I reviewed and discussed the cardiac catheterization data with Dr. Lee. study be appropriate to consider PCI of the in-stent stenosis and possible FFR of the intermedius artery lesion. At this point, Dr. Sun took over further management of this patient. 4. Mid Left Anterior Descending was treated with a Balloon, Drug Eluting Stent, and Balloon. Recommendations * 1-Return to inpatient for close monitoring and routine cath care2-Risk factor modification for secondary prevention3-Statin and aspirin 81 mg life--long, if tolerated * 4- * C * ontinue Plavix 75mg p.o. daily for at least one year. We will assess at the end of one year again to continue if further or not * 5-Continue optimal medical management * 6-Follow up with Dr. Zakia Landis * in four weeks and your primary care in 10 days. Diagnostic RX Recommendation: PCI w/o planned CABG LV EDP: 22 mmHg Left Ventriculography Findings: * The LV gram was not performed because of the end-stage renal disease. Pressures Phase:Rest AO : 0 / -4 ( -1 ) @ 11:24:00 AM 21 / -16 ( 0 ) @ 11:24:00 AM 107 / 20 ( 48 ) @ 11:31:00 AM LV : 111 / 6 / 21 @ 11:31:00 AM Clinical Evaluation EBL: 5mL-10mL Procedural Details Admit Source: In Patient. Identified patient by full name and date of as verbalized by the patient/guarantor. Does the consent match the physician's order: Yes. Accurate & Complete Informed Consent: Yes. Inpatient/Outpatient History & Physical on Chart: Yes. If H&P is completed, is and addenduem needed: no. Pre-op teaching completed and patient verbalized understanding. The risks, benefits, and alternatives of sedation and/or procedure were discussed by physician. The patient agrees to continue. Procedure started. IV Site on Arrival: 20 gauge in the right forearm. IV Fluids: 0.9% NaCl at KVO. 75 mL infused prior to [employer]. Oxygen started at 2liters/min via nasal canula. right groin was prepped with chloroprep then draped in the usual sterile fashion. Physician notified. Baseline sample Acquired. HR: 75 BPM. PERRLA. 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 Lungs clear x 5 lobes. Physician arrived. Physician scrubbed in. Immediate Pre-Procedure Time Out. Correct Patient: Yes; Correct Procedure: Yes; Correct Site: Yes; Correct Patient Position: Yes; Correct Supplies: YES Dried Flammable Prep: YES Blood Products Available: N/A;. Lidocaine 1% infiltrated to the right groin. Arterial access obtained with micropuncture set. A 5 cook islander JL4 catheter in over wire. Multiple views taken of left coronary artery. Catheter removed over the standard wire. A 5 cook islander JR4 catheter in over wire. Dr Lee notified per Dr Landis request. Multiple views taken of right coronary artery. Catheter removed over the standard wire. 6FR Glidesheath exchaged for 6FR femoral sheath. A 5 cook islander Angled Pig catheter in over wire. EDP Sample taken: LV 111/6,21; HR: 67 BPM; SpO2: 94%. Pullback taken: LV Off; AO Off; Mean: , Peak to Peak: , SEP: ; HR: 59 BPM; SpO2: 95%. Catheter out. Flushing sheath periodically to maintain patency. Dr. Landis scrubbed out. Dr. Lee scrubbed in to perform intervention. [facility] Clinical Fraility Score: 4: Vulnerable. 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 Chest Pain Symptom Assessment: Atypical Angina. Cardiovascular Instability: No, if yes, Persistant Ischemic Symptoms. Correct patient, site and procedure confirmed by cath team. Patient's family updated. 6 cook islander XB 3.5 guide catheter was inserted over the wire. [place] guidewire was advanced through the guide catheter to lesion in the LAD. Inflation number : 1 A AB TREK 2.50X15 RX BALLOON was prepped and advanced across the Mid LAD , then inflated to 15 CANDY for 0:17 seconds. Results checked. Balloon out. Stent inserted but unable to cross lesion. Intact stent removed. Guideliner inserted. Stent inserted to lesion in the mid LAD. Inflation Number : 2 A SARI Alberto JOSE 2.75X22 ALEXYS -Lot Number# _[id number] EXP: 08/25/2022 was prepped and advanced across the Mid LAD. The stent was deployed at 14 CANDY for 0:23 seconds. Stent balloon out over wire. Results checked. Results checked. Inflation number : 3 A SARI BORJA EUPHORA RX [id number] BALLOON was prepped and advanced across the Mid LAD , then inflated to 18 CANDY for 0:27 seconds. Balloon out. Results checked. Wire out. Guide catheter out. ACT drawn. Results 185 seconds. Therapeutic limits - pre-heparin administration 90-150 seconds and monitoring heparin during a vascular procedure >250 seconds. Sheath(s) sutured into position with 2-0 silk and sterile 4x4's and Op-site applied over the site. No oozing or signs and symptoms of hematoma noted. Post Procedure: Pulses reassessed and unchanged. PERRLA. 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 No VTE prophylaxis required. Contrast type used: Visipaque 320 mgI/mL, 500 mL bottle. Contrast type used: Omnipaque 300 mgI/mL, 500 mL bottle. Contrast Material : Visipaque 230 ml. A Suture was unsuccessful obtaining hemostatsis at the Right Femoral artery insertion site. Estimated blood loss: 5mL-10mL. Vital chart was stopped. Medication's Wasted: Lidocaine 1% = 6 mL. Medication's Wasted: Heparin = 3500 units. Medication's Wasted: Nitro = 49.8 mcg. Medication's Wasted: Other = Fentanyl 75 mcg Versed 2 mg. Medication's Wasted: Other = Adenosine 757 mL. Total IV fluids: 100 mL. Complications: None. Procedure completed. Patient transferred by bed to 1st floor. Access Site Site: Right Femoral artery Sheath Size: 6 Fr Hemostasis Method: Suture Hemostasis Success: Unsuccessful Procedure Medications Start: 12:09 PM Stop: 12:09 PM Medication: Versed Amount: 1 mg Route: I.V. Start: 12:09 PM Stop: 12:09 PM Medication: Fentanyl Amount: 25 mcg Route: I.V. Start: 12:16 PM Stop: 12:16 PM Medication: Versed Amount: 1 mg Route: I.V. Start: 12:19 PM Stop: 12:19 PM Medication: Heparin Amount: 1500 units Route: I.V. Start: 12:55 PM Stop: 12:55 PM Medication: Heparin Amount: 6000 units Route: I.V. Start: 12:56 PM Stop: 12:56 PM Medication: Aggrastat 12.5 mg/250 mL Amount: 16.2 ml/hr Route: I.V. drip Start: 12:57 PM Stop: 12:57 PM Medication: Aggrastat 12.5 mg/250 mL Amount: 45 ml Route: I.V. bolus Start: 1:03 PM Stop: 1:03 PM Medication: Nitrogylcerin Amount: 200 mcg Route: I.C. Start: 1:12 PM Stop: 1:12 PM Medication: Plavix Amount: 600 mg Route: P.O. Start: 1:14 PM Stop: 1:14 PM Medication: Heparin Amount: 3000 units Route: I.V. I, the attending physician, have reviewed and verified all procedure medications. Yes, all medications given per verbal order History/Risk Factors Hypertension: Yes Dyslipidemia: Yes Peripheral Arterial Disease (PAD): No Myocardial Infarction ([place]): Yes Obesity: No Renal Disease: Yes Tobacco Use: Former Dialysis: Current Prior Interventions PCI: Yes CABG: No Valve Surgery: No Date of PCI: 03/16/2015 Report Signatures Interventional Workflow Finalized by Kei Lee MD on 07/22/2021 07:47 PM Diagnostic Workflow Finalized by Dr Isauro Landis MD [facility] on 07/09/2021 12:49 AM
--- NOTE | 2021-07-08 12:08 | W.PM.OPSUD ---
Surgery/Procedure H&P Update DATE OF PROCEDURE: July 08, 2021 DATE H&P PERFORMED: 06/30/20 H&P UPDATE INFORMATION: I have reviewed H&P completed within last 30 days, I have examined patient prior to procedure and No changes to prior documentation PREOP DIAGNOSIS: NSTEMI PRIMARY INDICATION FOR PROCEDURE: chest pain/CHF PLANNED PROCEDURE: Operation Date: 07/08/21 16:30 Proposed Procedures p Cardiac Catheterization(Left) - Isauro Landis MD PATIENT REASSESSED PRIOR TO SEDATION, WITH NO CHANGE NOTED: Yes PHYSICAL EXAM: alert, oriented x 3, clear to auscultation bilaterally and regular rate & rhythm AIRWAY EVAL/ANESTHESIA PLAN: normal airway, see other exam findings, ASA IV, Monitored Anesthesia, Local Anesthesia, Risks, benefits & alternatives of sedation and/or procedure discussed and Patient agrees to continue as planned
--- NOTE | 2021-07-08 13:47 | P.PN_ITS ---
Subjective Subjective: Interval history: Patient is still feeling lethargic and tired. Has ongoing chest pain on the left upper part of the chest. No fever or chills. No cough. Medications: Reviewed: Yes Medication Review Details: Current Medications Al Hydrox/Mg Hydrox/Simethicone (Kqgr-Shq-Wvgyqmvet-Maninder 30 Ml Udc) 30 ml PO Q15M PRN PRN Reason: INDIGESTION Albuterol Sulfate (Albuterol 8 Gm Mdi) 2 puff INHALATION QID PRN PRN Reason: shortness of breath or wheezing Last Admin: 07/08/21 07:47 Dose: 2 puff Documented by: Alprazolam (Alprazolam 0.5 Mg Tablet) 0.25 mg PO TID PRN PRN Reason: ANXIETY Aspirin (Aspirin 81 Mg Ec Tablet) 81 mg PO DAILY [facility] Last Admin: 07/08/21 09:11 Dose: 81 mg Documented by: Atropine Sulfate (Atropine 1 Mg/Ml Sdv 1 Ml) 0.5 mg IVP PRN PRN PRN Reason: Symptomatic bradycardia Azathioprine (Azathioprine 50 Mg Tablet) 75 mg PO DAILY [facility] Last Admin: 07/08/21 09:10 Dose: 75 mg Documented by: Duloxetine HCl (Duloxetine 20 Mg Capsule) 20 mg PO BID [facility] Last Admin: 07/08/21 09:14 Dose: 20 mg Documented by: Enoxaparin Sodium (Enoxaparin 80 Mg/0.8 Ml Syringe) 80 mg SUBCUT Q24H [facility] Last Admin: 07/07/21 20:53 Dose: 80 mg Documented by: Fluticasone Propionate (Fluticasone Nasal [place] 16gm Btl) 1 spray INTRANASAL BID PRN PRN Reason: Nasal Congestion Tirofiban/Sodium Chloride (Aggrastat) 12.5 mg in 250 mls @ 16 mls/hr IV .Q15H3 8M [facility]; Protocol Lidocaine/Prilocaine (Lidocaine-Prilocaine Cream 5 Gm) 0 applic TOPICAL PRN [facility] Magnesium Hydroxide (Magnesium Hydroxide 30 Ml Udc) 30 ml PO DAILY PRN PRN Reason: CONSTIPATION Metoprolol Tartrate (Metoprolol Tartrate 50 Mg Tablet) 50 mg PO DAILY [facility] Last Admin: 07/08/21 09:13 Dose: 50 mg Documented by: Naloxone HCl (Naloxone 0.4 Mg/Ml Sdv) 0.1 mg IVP Q2M PRN PRN Reason: RESPIRATORY RATE < 8/MIN Nitroglycerin (Nitroglycerin 0.4 Mg Sublingual Tablet) 0.4 mg SUBLINGUAL Q5M PRN PRN Reason: Pain Nitroglycerin (Nitroglycerin 1 Gm/Inch Oint Pkt) 0.5 inch TOPICAL Q6H [facility] Last Admin: 07/08/21 09:15 Dose: 0.5 inch Documented by: Ondansetron HCl (Ondansetron 4 Mg Tablet) 4 mg PO Q8H PRN PRN Reason: NAUSEA Oxycodone/Acetaminophen (Oxycodone-Apap 5-325 Mg Tablet) 1 tab PO Q6H PRN PRN Reason: Moderate To Severe Pain Last Admin: 07/08/21 09:11 Dose: 1 tab Documented by: Pantoprazole Sodium (Pantoprazole Dr 40 Mg Tablet) 40 mg PO DAILY [facility] Last Admin: 07/08/21 09:13 Dose: 40 mg Documented by: Prednisone (Prednisone 10 Mg Tablet) 10 mg PO DAILY [facility] Last Admin: 07/08/21 09:15 Dose: 10 mg Documented by: Pregabalin (Pregabalin 75 Mg Capsule) 75 mg PO BID [facility] Last Admin: 07/08/21 09:11 Dose: 75 mg Documented by: Sacubitril/Valsartan (Sacubitril/Valsartan 24-26 Mg Tablet) 1 each PO BID [facility] Last Admin: 07/08/21 10:07 Dose: 1 each Documented by: Sevelamer Carbonate (Sevelamer 800 Mg Tablet) 2,400 mg PO TIDAC [facility] Last Admin: 07/08/21 07:27 Dose: 2,400 mg Documented by: Temazepam (Temazepam 15 Mg Capsule) 15 mg PO BEDTIME PRN PRN Reason: INSOMNIA Vitals/I&O/Wt Last Vital Signs Temp 97.4 F L 07/08/21 04:00 Pulse 85 07/08/21 07:47 Resp 20 H 07/08/21 09:11 BP 143/97 07/08/21 07:33 Pulse Ox 95 07/08/21 07:47 07/07/21 07/08/21 07/08/21 22:59 06:59 14:59 Intake Total 250 / 550 Output Total 0 / 2300 0 / 2300 Balance 0 / 250 / -1750 Weight last 48 hrs Weight 196 lb 14.4 oz Weight 196 lb 6.91 oz Weight 201 lb 3.2 oz Weight 201 lb 11.567 oz Physical Exam Narrative: EXAM NARRATIVE: GENERAL: The patient is alert and oriented times three. Not in any acute distress. Somewhat lethargic. HEENT:Mild pallor, icterus or lymphadenopathy. The pupils are symmetrical NECK: Trachea appears to be central. No masses noted. No JVD or thyromegaly appreciated. No carotid bruit. RESPIRATORY: Chest is symmetrical. No intercostals muscle retraction or any accessory muscle activation. There is no chest wall tenderness. Breath sounds are heard bilaterally. No rales or rhonchi heard. No evidence of any consolidation. BREASTS: Deferred. HEART: Patient has diffuse impulse in the apex. No other palpable precordial ev ents. Normal S1 and S2 with a soft S3. No pericardial rub or any click heard. ABDOMEN: No vessel pulsations or distention. No tenderness. No organomegaly appreciated. No abdominal bruit. Bowel sounds are normally heard. : Deferred. RECTAL: Deferred. LYMPHATIC: No lymphadenopathy noted in the neck or groin. EXTREMITIES:1+ edema both lower extremities. No cyanosis. MUSCULOSKELETAL: No acute joint deformities or swelling. SKIN: There are no significant scars or skin rash noted. NEUROPSYCHIATRIC: The patient is alert and oriented x3. Slightly lethargic. No focal motor deficits. Const: COMMON NORMALS: alert Resp: COMMON NORMALS: clear to auscultation bilaterally AUSCULTATION: clear to auscultation bilaterally Neuro: SENSORIUM/ORIENTATION: Yes alert Data : 07/09/21 04:26 07/09/21 04:26 Other Labs: Laboratory Last Values WBC 8.3 10^3/uL (4.0-10.0) 07/08/21 04:28 RBC 3.24 10^6/uL (4.1-5.3) L 07/08/21 04:28 Hgb 10.2 g/dL (11.7-16.6) L 07/08/21 04:28 Hct 32.0 % (42.0-52.0) L 07/08/21 04:28 MCV 98.8 fl (80-94) H 07/08/21 04:28 MCH 31.5 pg (28.0-34.0) 07/08/21 04:28 MCHC 31.9 g/dL (30.0-36.0) 07/08/21 04:28 RDW 17.7 % (12.1-15.1) H 07/08/21 04:28 Plt Count 119 10^3/cmm (130-400) L 07/08/21 04:28 MPV 10.6 fL (7.4-10.4) H 07/08/21 04:28 Neut % (Auto) 82.4 % 07/08/21 04:28 Lymph % (Auto) 6.8 % 07/08/21 04:28 [place] % (Auto) 8.7 % 07/08/21 04:28 Eos % (Auto) 1.0 % 07/08/21 04:28 Baso % (Auto) 0.5 % 07/08/21 04:28 Neut # (Auto) 6.81 10^3/uL (1.8-7.7) 07/08/21 04:28 Lymph # (Auto) 0.6 10^3/uL (0.8-4.8) L 07/08/21 04:28 [place] # (Auto) 0.7 10^3/uL (0.2-0.9) 07/08/21 04:28 Eos # (Auto) 0.1 10^3/uL (0.0-0.8) 07/08/21 04:28 Baso # (Auto) 0.0 10^3/uL (0.0-0.1) 07/08/21 04:28 Nucleated RBC % (auto) 0 % 07/08/21 04:28 Nucleated RBCs # 0.0 /100WBC 07/08/21 04:28 Sodium 137 mmol/L (136-145) 07/08/21 04:28 Potassium 5.1 mmol/L (3.5-5.1) 07/08/21 04:28 Chloride 93 mmol/L (98-107) L 07/08/21 04:28 Carbon Dioxide 26 mmol/L (22-29) 07/08/21 04:28 Anion Gap 23.1 (5-19) H 07/08/21 04:28 BUN 44 mg/dL (6-20) H 07/08/21 04:28 Creatinine 7.8 mg/dL (0.7-1.2) H* 07/08/21 04:28 GFR Calculation 7.4 mL/min (90-130) L 07/08/21 04:28 Glucose 103 mg/dL (65-115) 07/08/21 04:28 POC Glucose 180 mg/dL (70-110) H 07/07/21 10:44 Calculated Osmolality 295 mOsm/kg (285-295) 07/08/21 04:28 Uric Acid 7.1 mg/dL (3.4-7.0) H 07/06/21 16:00 Calcium 8.8 mg/dL (8.5-10.5) 07/08/21 04:28 Phosphorus 6.5 mg/dL (2.5-4.5) H 07/08/21 04:28 Magnesium 2.2 mg/dL (1.7-2.3) 07/08/21 04:28 Ferritin 248 ng/mL (30-400) 07/06/21 16:00 Total Bilirubin 0.9 mg/dL (0.15-1.2) 07/08/21 04:28 AST 14 U/L (0-40) 07/08/21 04:28 ALT 10 U/L (0-41) 07/08/21 04:28 Alkaline Phosphatase 60 IU/L (40-130) 07/08/21 04:28 Troponin T Gen 5 ng/L 247 ng/L (0-15) H* 07/07/21 11:20 Troponin T Baseline 164 ng/L (0-15) H* 07/06/21 14:02 Troponin T 120 Minute 151.5 ng/L (0-15) H 07/06/21 16:00 Delta Troponin T -12.5 ABS# (0-10) L 07/06/21 16:00 Troponin T Hi Sens 6Hr 147.2 ng/L (0-15) H 07/06/21 20:31 Troponin T Hi Sens 6Hr Delta -16.8 ng/L (0-12) L 07/06/21 20:31 NT-Pro-B Natriuret Pep 54796 pg/mL (0-125) H 07/06/21 14:02 Total Protein 6.5 g/dL (6.6-8.7) L 07/08/21 04:28 Albumin 3.9 g/dL (3.5-5.2) 07/08/21 04:28 Globulin 2.6 g/dL (1.3-4.6) 07/08/21 04:28 25-OH Vitamin D Total 46 ng/mL (30-100) 07/07/21 04:40 TSH 4.01 uIU/mL (0.27-4.20) 07/06/21 14:02 PTH Intact 231.2 pg/mL (15-65) H 07/07/21 04:40 Calcium (PTH Intact) 8.8 mg/dL (8.5-10.5) 07/07/21 04:40 Hep Bs Antigen Non-reactive (Nonreactive) 07/06/21 14:02 Hep Bs Antibody 4.4 (11.5-1000) L 07/06/21 14:02 Hepatitis C Antibody Non-reactive (Nonreactive) 07/06/21 14:02 A&P Assessment and plan (1) Acute on chronic systolic heart failure: The heart failure symptoms are better now. Has been on Entresto and for some reason he is not on this at this time. We may go ahead and restart it. Status: Acute (2) Atherosclerotic heart disease of [place] coronary artery with other forms of angina pectoris: In view of the ongoing chest symptoms and elevated troponin T with a significant delta, we may go ahead and do a repeat cardiac colorization to reevaluate the coronary arteries and decide on further management. This was once again discussed with the patient detail with the risk and benefits. Patient understood this well and consented to proceed. We will be closely monitor him for developing any heart failure. We will consider dialysis after the coronary angiogram.. Status: Acute (3) Idiopathic pulmonary hemosiderosis: Currently the patient has no hemoptysis. May continue on the current management as per the pulmonology Status: Acute (4) ESRD (end stage renal disease): On hemodialysis, had 2 hemodialysis of far since hospital admission. May consider doing the dialysis again after the angiogram. Status: Acute (5) Hemochromatosis: Continue on the current measures. Status: Acute (6) Pulmonary hypertension: Continue on the current management. I not require specific intervention at this point. Status: Acute (7) Ischemic cardiomyopathy: Since the patient has not been tried on adequate medications and also considering the possibility of coronary artery disease causing LV dysfunction, we may wait for the angiogram findings to decide on further management. Status: Acute Attestations Medical Necessity Statement*: Patient requires continued hospital stay for close monitoring and further management Coding Level of Care Code Acute Cutlery Grinder for Chg Fwd Exam Expanded Problem Focused Diagnoses Acute on chronic systolic heart failure I50.23 Atherosclerotic heart disease of [place] coronary artery with other forms of angina pectoris I25.118 Idiopathic pulmonary hemosiderosis J84.03 ESRD (end stage renal disease) N18.6 Hemochromatosis E83.119 Pulmonary hypertension I27.20 Ischemic cardiomyopathy I25.5
--- NOTE | 2021-07-08 14:00 | PC.NURSE ---
Pt arrived from heart cath at approximately 1340. Pt has Agrastate drip running at 16.2. Pt has 6 est[place] sheath in right groin. No hematoma or swelling noted. Pt had no c/o pain or discomfort at the present time. Call light in reach. will cont to monitor.
--- NOTE | 2021-07-08 15:40 | P.PN_ITS ---
Subjective Subjective: Interval history: Mr. Dorantes feels relatively well, however still complains of dyspnea at rest. No chest pain, palpitations. He did have dialysis yesterday and the day prior with only marginal improvement in his shortness of breath. Vitals/I&O/Wt Last Vital Signs Temp 97.4 F L 07/08/21 04:00 Pulse 85 07/08/21 07:47 Resp 20 H 07/08/21 09:11 BP 143/97 07/08/21 07:33 Pulse Ox 95 07/08/21 07:47 07/08/21 07/08/21 07/08/21 06:59 14:59 22:59 Intake Total 250 / 550 Output Total 0 / 2300 Balance 250 / -1750 Weight last 48 hrs Weight 89.312 kg Weight 89.1 kg Weight 91.263 kg Weight 91.5 kg Physical Exam Narrative: EXAM NARRATIVE: Constitutional: Awake, comfortable HEENT: Wet mucosa, no jvp, non icteric Lungs: Bilaterally clear without discernible wheeze, rales in all lung zones CVS: S1 S2, no murmurs Abdo: Soft, BS ok Ext 4: Minimal edema, peripheral perfusion with no cyanosis Neurological: Grossly non-focal Data : 07/08/21 04:28 07/08/21 04:28 A&P Additional A&P Information 1. ESRD We will plan to do dialysis this afternoon after the volume of contrast he received. We will evaluate him tomorrow otherwise plan to do dialysis again on Tuesday. Dose medication for GFR less than 15 2. CAD Pending [facility] per Dr. Landis we will follow results this closely. Currently on ARB therapy, beta-luis carlos 3. Hemodynamics Blood pressure and pulse have been nicely stable, continue to monitor closely 4. Chronic ESRD issues to be addressed as outpatient as part of standard monthly management. Rei Jacob MD Nephrology [phone] Patient seen and examined via telemedicine, with the assistance of the bedside RN > 25 min spent in evaluation and mgmt of patient Attestations Medical Necessity Statement*: Eval for ESRD Coding Level of Care Code Acute Seasonal Greenery Bundler for Gabyg Epifanio
[2021-07-08 16:49] LABS: Partial Thromboplastin Time 43.5 SECONDS (23.9-36.7)
--- NOTE | 2021-07-08 19:00 | PC.NURSE ---
Femoral catheter removed and direct pressure was held on catheter insertion sight. Pt tolerated well. No hematoma, swelling or excess bleeding noted. Drsg applied dry and intact. Will cont to monitor.
--- NOTE | 2021-07-08 19:22 | PC.NURSE ---
Hematoma formed below insertion sight. pressure held, MD notified. Weighted Sandbag applied. VS stable. Will continue to monitor.
[2021-07-08] MEDS: morphine 4 mg/mL SDV 1 mL 2 MG IVP (21:23)
[2021-07-09] VITALS (17 sets, daily range): BP systolic 97–130; BP diastolic 63–82; PULSE 17–75; RESP 12–20; TEMP 36.3–36.7; O2SAT 91–99
[2021-07-09] MEDS: oxyCODONE-APAP 5-325 mg Tablet 1 TAB PO ×3 (01:37→20:12)
[2021-07-09 04:54] LABS: Basophils # 0.1 10^3/uL (0.0-0.1); Basophils % 0.7 %; Eosinophils # 0.1 10^3/uL (0.0-0.8); Eosinophils % 1.1 %; Hematocrit 29.9 % (42.0-52.0); Hemoglobin 9.4 g/dL (11.7-16.6); Lymphocytes # 0.6 10^3/uL (0.8-4.8); Lymphocytes % 7.2 %; Mean Corpuscular HGB Conc 31.4 g/dL (30.0-36.0); Mean Corpuscular Hemoglobin 30.7 pg (28.0-34.0); Mean Corpuscular Volume 97.7 fl (80-94); Mean Platelet Volume 10.6 fL (7.4-10.4); Monocytes # 0.7 10^3/uL (0.2-0.9); Monocytes % 8.5 %; Neutrophils # 6.83 10^3/uL (1.8-7.7); Neutrophils % 81.8 %; Nucleated Red Blood Cells % 0 %; Platelet Count 154 10^3/cmm (130-400); Red Blood Count 3.06 10^6/uL (4.1-5.3); Red Cell Distribution Width 17.8 % (12.1-15.1); White Blood Count 8.4 10^3/uL (4.0-10.0)
[2021-07-09 05:10] LABS: Alanine Aminotransferase 10 U/L (0-41); Albumin Level 3.7 g/dL (3.5-5.2); Alkaline Phosphatase 59 IU/L (40-130); Anion Gap 23.2 (5-19); Aspartate Amino Transferase 11 U/L (0-40); Blood Urea Nitrogen 54 mg/dL (6-20); Calcium 8.5 mg/dL (8.5-10.5); Carbon Dioxide 24 mmol/L (22-29); Chloride 91 mmol/L (98-107); Globulin 2.3 g/dL (1.3-4.6); Glomerular Filtration Rate 5.5 mL/min (90-130); Glucose 70 mg/dL (65-115); Magnesium 2.4 mg/dL (1.7-2.3); Osmolality Calculated 289 mOsm/kg (285-295); Phosphorus 7.2 mg/dL (2.5-4.5); Potassium 5.2 mmol/L (3.5-5.1); Sodium 133 mmol/L (136-145); Total Bilirubin 0.9 mg/dL (0.15-1.2)
[2021-07-09] MEDS: nitroglycerin 1 gm/inch oint Pkt 0.5 INCH TOPICAL (05:20)
[2021-07-09] MEDS: aspirin 81 mg EC Tablet PO (08:22)
[2021-07-09] MEDS: pantoprazole DR 40 mg Tablet PO (08:22)
[2021-07-09] MEDS: predniSONE 10 mg Tablet PO (08:22)
[2021-07-09] MEDS: pregabalin 75 mg Capsule PO ×2 (08:25→17:48)
[2021-07-09] MEDS: sacubitril/valsartan 24-26 mg Tablet 1 EACH PO ×2 (08:25→17:48)
[2021-07-09] MEDS: duloxetine 20 mg Capsule PO ×2 (08:25→17:48)
[2021-07-09] MEDS: metoprolol tartrate 25 mg Tablet PO ×2 (08:29→21:30)
[2021-07-09] MEDS: isosorbide mononitrate ER 30 mg Tablet PO (08:29)
[2021-07-09] MEDS: sevelamer 800 mg Tablet 2400 MG PO ×2 (11:19→17:47)
--- NOTE | 2021-07-09 11:56 | PC.SOCIAL ---
Pg 2 IMM Explained to pt on Pg 2 IMM. No questions voiced. Provided pt a copy. Initialed, dated, & timed a copy & placed in chart.
--- NOTE | 2021-07-09 13:49 | USCV_ITS ---
Marlon Dorantes Age: 51 Gender: M : 1970 Exam Date: 07/09/2021 17:07 Ordering Phys: Dawson Knowles MD Technologist: Exam Location[place] [facility] [place] Indication: RT GROIN PSUEDO POST CATH Findings There is a 1.31 x 1.01 cm hypoechoic area in the region of the right common femoral artery. 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
--- NOTE | 2021-07-09 14:06 | P.PN_ITS ---
Subjective Subjective: Interval history: Patient is feeling okay. He developed a large hematoma in the right groin currently the swelling has gone but he has diffuse ecchymosis in the right groin. A small hematoma is felt at the puncture site. He still has some sharp chest pains in the back but overall is feeling much better. No orthopnea. No fever or chills. No cough. Medications: Reviewed: Yes Medication Review Details: Current Medications Al Hydrox/Mg Hydrox/Simethicone (Osjp-Lif-Aqczfzfsj-Maninder 30 Ml Udc) 30 ml PO Q15M PRN PRN Reason: INDIGESTION Albuterol Sulfate (Albuterol 8 Gm Mdi) 2 puff INHALATION QID PRN PRN Reason: shortness of breath or wheezing Last Admin: 07/08/21 07:47 Dose: 2 puff Documented by: Alprazolam (Alprazolam 0.5 Mg Tablet) 0.25 mg PO TID PRN PRN Reason: ANXIETY Aspirin (Aspirin 81 Mg Ec Tablet) 81 mg PO DAILY [facility] Last Admin: 07/09/21 08:22 Dose: 81 mg Documented by: Atropine Sulfate (Atropine 1 Mg/Ml Sdv 1 Ml) 0.5 mg IVP PRN PRN PRN Reason: Symptomatic bradycardia Azathioprine (Azathioprine 50 Mg Tablet) 75 mg PO DAILY [facility] Last Admin: 07/09/21 08:26 Dose: 75 mg Documented by: Duloxetine HCl (Duloxetine 20 Mg Capsule) 20 mg PO BID [facility] Last Admin: 07/09/21 08:25 Dose: 20 mg Documented by: Enoxaparin Sodium (Enoxaparin 80 Mg/0.8 Ml Syringe) 80 mg SUBCUT Q24H [facility] Last Admin: 07/08/21 20:25 Dose: Not Given Documented by: Fluticasone Propionate (Fluticasone Nasal [place] 16gm Btl) 1 spray INTRANASAL BID PRN PRN Reason: Nasal Congestion Tirofiban/Sodium Chloride (Aggrastat) 12.5 mg in 250 mls @ 16 mls/hr IV .Q15 H38M [facility]; Protocol Last Admin: 07/09/21 05:20 Dose: Not Given Documented by: Isosorbide Mononitrate (Isosorbide Mononitrate Er 30 Mg Tablet) 30 mg PO DAILY [facility] Last Admin: 07/09/21 08:29 Dose: 30 mg Documented by: Lidocaine/Prilocaine (Lidocaine-Prilocaine Cream 5 Gm) 0 applic TOPICAL PRN [facility] Magnesium Hydroxide (Magnesium Hydroxide 30 Ml Udc) 30 ml PO DAILY PRN PRN Reason: CONSTIPATION Metoprolol Tartrate (Metoprolol Tartrate 25 Mg Tablet) 25 mg PO BID@0900,2100 [facility] Last Admin: 07/09/21 08:29 Dose: 25 mg Documented by: Naloxone HCl (Naloxone 0.4 Mg/Ml Sdv) 0.1 mg IVP Q2M PRN PRN Reason: RESPIRATORY RATE < 8/MIN Nitroglycerin (Nitroglycerin 0.4 Mg Sublingual Tablet) 0.4 mg SUBLINGUAL Q5M PRN PRN Reason: Pain Ondansetron HCl (Ondansetron 4 Mg Tablet) 4 mg PO Q8H PRN PRN Reason: NAUSEA Oxycodone/Acetaminophen (Oxycodone-Apap 5-325 Mg Tablet) 1 tab PO Q6H PRN PRN Reason: Moderate To Severe Pain Last Admin: 07/09/21 08:22 Dose: 1 tab Documented by: Pantoprazole Sodium (Pantoprazole Dr 40 Mg Tablet) 40 mg PO DAILY [facility] Last Admin: 07/09/21 08:22 Dose: 40 mg Documented by: Prednisone (Prednisone 10 Mg Tablet) 10 mg PO DAILY [facility] Last Admin: 07/09/21 08:22 Dose: 10 mg Documented by: Pregabalin (Pregabalin 75 Mg Capsule) 75 mg PO BID [facility] Last Admin: 07/09/21 08:25 Dose: 75 mg Documented by: Sacubitril/Valsartan (Sacubitril/Valsartan 24-26 Mg Tablet) 1 each PO BID [facility] Last Admin: 07/09/21 08:25 Dose: 1 each Documented by: Sevelamer Carbonate (Sevelamer 800 Mg Tablet) 2,400 mg PO TIDAC [facility] Last Admin: 07/09/21 11:19 Dose: 2,400 mg Documented by: Temazepam (Temazepam 15 Mg Capsule) 15 mg PO BEDTIME PRN PRN Reason: INSOMNIA Vitals/I&O/Wt Last Vital Signs Temp 97.7 F 07/09/21 12:51 Pulse 58 L 07/09/21 12:51 Resp 18 07/09/21 12:51 BP 105/79 07/09/21 12:51 Pulse Ox 96 09/16/21 12:00 07/08/21 07/09/21 07/09/21 22:59 06:59 14:59 Output Total 0 / 0 Balance 0 / 0 Weight last 48 hrs Weight 203 lb Weight 196 lb 14.4 oz Physical Exam Narrative: EXAM NARRATIVE: GENERAL: The patient is alert and oriented times three. Not in any acute distress. Somewhat lethargic. HEENT:Mild pallor, icterus or lymphadenopathy. The pupils are symmetrical NECK: Trachea appears to be central. No masses noted. No JVD or thyromegaly appreciated. No carotid bruit. RESPIRATORY: Chest is symmetrical. No intercostals muscle retraction or any accessory muscle activation. There is no chest wall tenderness. Breath sounds are heard bilaterally. No rales or rhonchi heard. No evidence of any consolidation. BREASTS: Deferred. HEART: Patient has diffuse impulse in the apex. No other palpable precordial events. Normal S1 and S2 with a soft S3. No pericardial rub or any click heard. ABDOMEN: No vessel pulsations or distention. No tenderness. No organomegaly appreciated. No abdominal bruit. Bowel sounds are normally heard. : Deferred. Large area of ecchymosis in the right groin. RECTAL: Deferred. LYMPHATIC: No lymphadenopathy noted in the neck or groin. EXTREMITIES:1+ edema both lower extremities. Large area of ecchymosis in the right groin with a small hematoma. No bruit. MUSCULOSKELETAL: No acute joint deformities or swelling. SKIN: There are no significant scars or skin rash noted. NEUROPSYCHIATRIC: The patient is alert and oriented x3. Slightly lethargic. No focal motor deficits. Const: COMMON NORMALS: alert Resp: COMMON NORMALS: clear to auscultation bilaterally AUSCULTATION: clear to auscultation bilaterally Neuro: SENSORIUM/ORIENTATION: Yes alert Data : 07/09/21 04:26 07/09/21 04:26 A&P Assessment and plan (1) Atherosclerotic heart disease of [place] coronary artery with other forms of angina pectoris: Patient had a cardiac catheterization yesterday. He was found to have a high-grade in-stent narrowing in the mid LAD. The intermedius artery ( high obtuse marginal branch) was found to have moderate disease proximally. Patient underwent a PCI of the LAD lesion. Patient was on Aggrastat. We will start him on Plavix 75 mg p.o. daily. Status: Acute (2) Ischemic cardiomyopathy: Since he had a coronary intervention and also since he has not been on any heart failure medications, we may wait for 3 months to optimize medical treatment, before we implant the internal cardiac defibrillator. Till then, I recommended him to have a LifeVest. Apparently the patient had a problems with the LifeVest in the past and is not wanting to use it. He will take a chance at this point. We will try to optimize his medical treatment. Reevaluate the LV function after 3 months. Based on results, further recommendations will be made. Status: Acute (3) Acute on chronic systolic heart failure: The heart failure symptoms are better now. Patient was started on Entresto and seems to be tolerating it so far well. Status: Acute (4) Idiopathic pulmonary hemosiderosis: Currently the patient has no hemoptysis. May continue on the current management as per the pulmonology Status: Acute (5) ESRD (end stage renal disease): Patient is scheduled for the dialysis today. Status: Acute (6) Hemochromatosis: Continue on the current measures. Status: Acute Qualifiers: Hemochromatosis type: unspecified Qualified Code(s): E83.119 - Hemochromatosis, unspecified (7) Pulmonary hypertension: Continue on the current management. I not require specific intervention at this point. Status: Acute (8) Hematoma: Arterial duplex times of the right groin was performed. 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 Could not identify the neck of the aneurysm. We will go ahead and try a ultrasound-guided compression of the pseudoaneurysm. This was discussed with the patient detail which is understood well. Status: Acute Additional A&P Information Other problems are as outlined before. Attestations Medical Necessity Statement*: Patient needs to be closely monitored today. Possible discharge home in the morning. Coding Level of Care Code Acute Rotary Engine Assembler for Ger Fwd Exam Expanded Problem Focused Diagnoses Atherosclerotic heart disease of [place] coronary artery with other forms of angina pectoris I25.118 Ischemic cardiomyopathy I25.5 Acute on chronic systolic heart failure I50.23 Idiopathic pulmonary hemosiderosis J84.03 ESRD (end stage renal disease) N18.6 Hemochromatosis E83.119 Hemochromatosis type: unspecified Pulmonary hypertension I27.20 Hematoma T14.8XXA
[2021-07-09 16:41] LABS: Glucose Point of Care 180 mg/dL (70-110)
[2021-07-09] MEDS: clopidogrel 75 mg Tablet PO (17:48)
[2021-07-09] MEDS: fentaNYL 50 mcg/mL INJ 2mL 25 MCG IVP (18:14)
--- NOTE | 2021-07-09 19:44 | PM.PN ---
Subjective Subjective: Interval history: feeling better. HD not done yesterday due to hematoma after cardiac cath Medications: Reviewed: Yes Vitals/I&O/Wt Last Vital Signs Temp 97.9 F 07/09/21 18:39 Pulse 61 07/09/21 18:39 Resp 18 07/09/21 18:39 BP 113/69 07/09/21 18:39 Pulse Ox 96 07/09/21 18:14 07/09/21 07/09/21 07/09/21 06:59 14:59 22:59 Intake Total 300 / 300 Output Total 0 / 0 4300 / 4300 Balance 0 / 0 -4000 / -4000 Weight last 48 hrs Weight 91.4 kg Weight 92.079 kg Weight 89.312 kg Physical Exam Const: COMMON NORMALS: no acute distress GENERAL APPEARANCE: cooperative Extremity: OTHER: left forearm AVF + thrill per RN large ecchymosis right thigh and groin Data : 07/09/21 04:26 07/09/21 04:26 A&P Additional A&P Information 1. ESRD, HD usually MWF. HD today 2. Ischemic cardiomyopathy, s/p cardiac cath, PtCA yesterday 3. ANemia Rec; Hd today and again tomorrow or Tuesday depending on discharge plans. No IVs, BPs, blood draws left arm. Epogen/iron at dialysis Attestations Medical Necessity Statement*: see above Coding Level of Care Code Acute Recreation Assistant for Ger Godfrey
--- NOTE | 2021-07-09 20:16 | P.PN_ITS ---
Subjective Subjective: Interval history: Denies any additional chest pain episodes. States overall he is doing better. Breathing better. Lower extremity edema is all but gone. He is having some tenderness in the hematoma of the right groin. Vitals/I&O/Wt Last Vital Signs Temp 97.9 F 07/09/21 18:39 Pulse 61 07/09/21 18:39 Resp 18 07/09/21 20:12 BP 113/69 07/09/21 18:39 Pulse Ox 98 07/09/21 20:12 07/09/21 07/09/21 07/09/21 06:59 14:59 22:59 Intake Total 300 / 300 Output Total 0 / 0 4300 / 4300 Balance 0 / 0 -4000 / -4000 Weight last 48 hrs Weight 91.4 kg Weight 92.079 kg Weight 89.312 kg Physical Exam Const: COMMON NORMALS: no acute distress, patient oriented x3 and alert GENERAL APPEARANCE: cooperative ORIENTATION/CONSCIOUSNESS: Yes awake HENMT: COMMON NORMALS: oropharynx normal Neck/C-Spine: COMMON NORMALS: no JVD Resp: COMMON NORMALS: normal respiratory effort and clear to auscultation bilaterally AUSCULTATION: clear to auscultation bilaterally Cardio: COMMON NORMALS: no JVD, regular rhythm, S1 normal heart sound present, S2 normal heart sound present and No murmurs present (Cardio) RHYTHM: regular rhythm HEART SOUNDS: S1 normal heart sound present and S2 normal heart sound present GI: COMMON NORMALS: Normal to inspection, nondistended, normoactive bowel sounds present, Soft to palpation and non-tender PALPATION: Yes Soft to palpation Extremity: COMMON NORMALS: no joint enlargement GENERAL: Yes edema (2+ BL) OTHER: R groin hematoma, large ecchymosis, no palpable pulsatile mass, peripheral pulses dopplered by RN Neuro: COMMON NORMALS: patient oriented x3 and moves all extremities SENSORIUM/ORIENTATION: Yes alert Skin: COMMON NORMALS: no rashes or lesions noted GENERAL SKIN EXAM: no rashes or lesions noted and ecchymosis Data : 07/09/21 04:26 07/09/21 04:26 A&P Assessment and plan (1) Cardiomyopathy: Suspected worsening ischemic cardiomyopathy, status post PCI, stenting. Feeling well. No further chest pain. States he will not wear LifeVest as he hunter d worn it in the past and found he could not bear weight for any prolonged periods of time. Would not wish to try at this time. He understands that he may be at risk of life-threatening arrhythmia. States that he will be taking the risk until reassessment in the next 3 months and determination whether he may require ICD. Noted hematoma, ecchymosis over the right groin. Obtained arterial duplex. Appreciate cardiology recommendations with regards to small pseudoaneurysm of about 1 cm in size. Appreciate plan for ultrasonographic compression, reevaluation tomorrow. Worsening cardiomyopathy, EF down to 18%. Ferritin within normal limits at 248, but higher than what would like to see [facility] hemochromatosis. Discussed with him will need to follow-up with hematology for consideration of phlebotomies which also may be made difficult/complicated by ongoing anemia with ESRD. He reports in the past also receiving a few PRBC transfusions. Status: Acute (2) Acute systolic CHF (congestive heart failure): Doing better after hemodialysis. Still episodes of chest discomfort as above. Hemodialysis, appreciate nephrology recommendations. Additional investigations with worsening cardiomyopathy as above. Status: Acute (3) Chest discomfort: Resolved. Ischemic cardiomyopathy, in-stent LAD occlusion treated with PCI. No PE on VQ scan, however, given persistent episodes of chest comfort continue anticoagulation for now. Status: Acute (4) Hypoxia: Improving. Down to 2 L nasal cannula. Ischemic cardiomyopathy as above. VQ scan low probability for PE. Duplex negative for DVT. 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 Follows with pulmonology. Monitor for any signs of superimposed pulmonary infection. Repeat chest x-ray. Status: Acute (5) ESRD (end stage renal disease): Additional hemodialysis tomorrow. Status: Acute (6) Hyperkalemia: Resolved. Renal hemodialysis diet. Status: Acute (7) Hemochromatosis: Avoid iron supplements. Vitamin C. Follow-up with hematology for discussion of phlebotomies versus iron chelation. Status: Acute Qualifiers: Hemochromatosis type: unspecified Qualified Code(s): E83.119 - Hemochromatosis, unspecified Attestations Medical Necessity Statement*: Continue admission for assessment of management of right groin pseudoaneurysm, hematoma. Additional hemodialysis. Coding Level of Care Code Acute Loader Technician for Ger Godfrey Diagnoses Cardiomyopathy I42.9 Acute systolic CHF (congestive heart failure) I50.21 Chest discomfort R07.89 Hypoxia R09.02 ESRD (end stage renal disease) N18.6 Hyperkalemia E87.5 Hemochromatosis E83.119 Hemochromatosis type: unspecified
[2021-07-09] MEDS: ALPRAZolam 0.5 mg Tablet 0.25 MG PO (23:29)
[2021-07-09] MEDS: morphine 4 mg/mL SDV 1 mL 2 MG IVP (23:34)
[2021-07-10] VITALS (12 sets, daily range): BP systolic 98–116; BP diastolic 66–73; PULSE 61–68; RESP 14–18; TEMP 36.5–36.6; O2SAT 88–97
--- NOTE | 2021-07-10 01:02 | PC.NURSE ---
Around 2300: Patient c/o of pain. Notified Dr. Mclaughlin, Hospitalist. Orders received, see DEC.
[2021-07-10] MEDS: oxyCODONE-APAP 5-325 mg Tablet 1 TAB PO ×2 (03:57→15:16)
--- NOTE | 2021-07-10 06:00 | USCV_ITS ---
Marlon Dorantes Age: 51 Gender: M : 1970 Exam Date: 07/10/2021 06:36 Ordering Phys: Isauro Landis MD ([email or web address]) Technologist: Sammy Liu [place]am [place] [facility] [place]: POST PSUEDO COMPRESSION Findings CLOSED PSUEDO ANUER RECHECK STILL CLOSED Normal examination of the right groin pseudoaneurysm was performed in the standard fashion. Hypoechoic area, measuring 1.1 x 1.2 cm was noted, anterolateral to the common femoral artery. Normal blood flow was noted in this area. Conclusions 1. Small hematoma with no evidence of pseudoaneurysm in the right groin. Dr Isauro Landis MD FACC (Electronically Signed) Final Date: 10 July 2021 17:35 S
[2021-07-10] MEDS: sevelamer 800 mg Tablet 2400 MG PO ×2 (06:21→15:17)
[2021-07-10 07:09] LABS: Basophils % 0.5 %; Eosinophils # 0.1 10^3/uL (0.0-0.8); Eosinophils % 1.3 %; Hemoglobin 9.4 g/dL (11.7-16.6); Lymphocytes # 0.5 10^3/uL (0.8-4.8); Lymphocytes % 6.6 %; Mean Corpuscular HGB Conc 31.3 g/dL (30.0-36.0); Mean Corpuscular Hemoglobin 30.6 pg (28.0-34.0); Mean Corpuscular Volume 97.7 fl (80-94); Mean Platelet Volume 10.1 fL (7.4-10.4); Monocytes # 0.8 10^3/uL (0.2-0.9); Monocytes % 10.2 %; Neutrophils # 6.41 10^3/uL (1.8-7.7); Neutrophils % 80.9 %; Nucleated Red Blood Cells % 0 %; Platelet Count 139 10^3/cmm (130-400); Red Blood Count 3.07 10^6/uL (4.1-5.3); Red Cell Distribution Width 17.8 % (12.1-15.1); White Blood Count 7.9 10^3/uL (4.0-10.0)
[2021-07-10 07:46] LABS: Alanine Aminotransferase 9 U/L (0-41); Albumin Level 3.4 g/dL (3.5-5.2); Alkaline Phosphatase 54 IU/L (40-130); Anion Gap 18.1 (5-19); Aspartate Amino Transferase 10 U/L (0-40); Blood Urea Nitrogen 27 mg/dL (6-20); Calcium 8.3 mg/dL (8.5-10.5); Carbon Dioxide 27 mmol/L (22-29); Chloride 94 mmol/L (98-107); Globulin 2.3 g/dL (1.3-4.6); Glomerular Filtration Rate 9.4 mL/min (90-130); Glucose 75 mg/dL (65-115); Osmolality Calculated 284 mOsm/kg (285-295); Potassium 4.1 mmol/L (3.5-5.1); Sodium 135 mmol/L (136-145); Total Bilirubin 0.8 mg/dL (0.15-1.2); Total Protein 5.7 g/dL (6.6-8.7)
[2021-07-10] MEDS: metoprolol tartrate 25 mg Tablet PO (07:58)
[2021-07-10] MEDS: pregabalin 75 mg Capsule PO (07:59)
[2021-07-10] MEDS: sacubitril/valsartan 24-26 mg Tablet 1 EACH PO (07:59)
[2021-07-10] MEDS: duloxetine 20 mg Capsule PO (07:59)
[2021-07-10] MEDS: isosorbide mononitrate ER 30 mg Tablet PO (07:59)
[2021-07-10] MEDS: pantoprazole DR 40 mg Tablet PO (07:59)
[2021-07-10] MEDS: clopidogrel 75 mg Tablet PO (07:59)
[2021-07-10] MEDS: predniSONE 10 mg Tablet PO (07:59)
[2021-07-10] MEDS: aspirin 81 mg EC Tablet PO (07:59)
[2021-07-10 08:00] LABS: Creatinine Clr Calc Pharmacy 15.5785
[2021-07-10] MEDS: albuterol 8 gm MDI 2 PUFF INHALATION (08:12)
--- NOTE | 2021-07-10 08:59 | P.PN_ITS ---
Subjective Subjective: Interval history: The patient is feeling okay. He has persistent pain in the back. Most likely this is musculoskeletal. Denies any shortness of breath. No fever or chills. No cough. The pseudoaneurysm in the right groin was treated with ultrasound-guided compression. Repeat ultrasound examination this morning revealed no evidence of pseudoaneurysm. Medications: Reviewed: Yes Medication Review Details: Current Medications Al Hydrox/Mg Hydrox/Simethicone (Xjcy-Ejg-Ojhamqsjo-Maninder 30 Ml Udc) 30 ml PO Q15M PRN PRN Reason: INDIGESTION Albuterol Sulfate (Albuterol 8 Gm Mdi) 2 puff INHALATION QID PRN PRN Reason: shortness of breath or wheezing Last Admin: 07/10/21 08:12 Dose: 2 puff Documented by: Alprazolam (Alprazolam 0.5 Mg Tablet) 0.25 mg PO TID PRN PRN Reason: ANXIETY Last Admin: 07/09/21 23:29 Dose: 0.25 mg Documented by: Aspirin (Aspirin 81 Mg Ec Tablet) 81 mg PO DAILY [facility] [place] Last Admin: 07/10/21 07:59 Dose: 81 mg Documented by: Atropine Sulfate (Atropine 1 Mg/Ml Sdv 1 Ml) 0.5 mg IVP PRN PRN PRN Reason: Symptomatic bradycardia Azathioprine (Azathioprine 50 Mg Tablet) 75 mg PO DAILY [facility] [place] Last Admin: 07/10/21 08:00 Dose: 75 mg Documented by: Clopidogrel Bisulfate (Clopidogrel 75 Mg Tablet) 75 mg PO DAILY [facility] [place] Last Admin: 07/10/21 07:59 Dose: 75 mg Documented by: Duloxetine HCl (Duloxetine 20 Mg Capsule) 20 mg PO BID [facility] [place] Last Admin: 07/10/21 07:59 Dose: 20 mg Documented by: Enoxaparin Sodium (Enoxaparin 80 Mg/0.8 Ml Syringe) 80 mg SUBCUT Q24H [facility] [place] Last Admin: 07/09/21 20:18 Dose: Not Given Documented by: Fluticasone Propionate (Fluticasone Nasal [place] 16gm Btl) 1 spray INTRANASAL BID PRN PRN Reason: Nasal Congestion Tirofiban/Sodium Chloride (Aggrastat) 12.5 mg in 250 mls @ 16 mls/hr IV .[id number] [facility] [place]; Protocol Last Admin: 07/09/21 20:16 Dose: Not Given Documented by: Isosorbide Mononitrate (Isosorbide Mononitrate Er 30 Mg Tablet) 30 mg PO DAILY [facility] [place] Last Admin: 07/10/21 07:59 Dose: 30 mg Documented by: Lidocaine/Prilocaine (Lidocaine-Prilocaine Cream 5 Gm) 0 applic TOPICAL PRN [facility] [place] Magnesium Hydroxide (Magnesium Hydroxide 30 Ml Udc) 30 ml PO DAILY PRN PRN Reason: CONSTIPATION Metoprolol Tartrate (Metoprolol Tartrate 25 Mg Tablet) 25 mg PO BID@0900,2100 [facility] [place] Last Admin: 07/10/21 07:58 Dose: 25 mg Documented by: Naloxone HCl (Naloxone 0.4 Mg/Ml Sdv) 0.1 mg IVP Q2M PRN PRN Reason: RESPIRATORY RATE < 8/MIN Nitroglycerin (Nitroglycerin 0.4 Mg Sublingual Tablet) 0.4 mg SUBLINGUAL Q5M PRN PRN Reason: Pain Ondansetron HCl (Ondansetron 4 Mg Tablet) 4 mg PO Q8H PRN PRN Reason: NAUSEA Oxycodone/Acetaminophen (Oxycodone-Apap 5-325 Mg Tablet) 1 tab PO Q6H PRN PRN Reason: Moderate To Severe Pain Last Admin: 07/10/21 03:57 Dose: 1 tab Documented by: Pantoprazole Sodium (Pantoprazole Dr 40 Mg Tablet) 40 mg PO DAILY [facility] [place] Last Admin: 07/10/21 07:59 Dose: 40 mg Documented by: Prednisone (Prednisone 10 Mg Tablet) 10 mg PO DAILY [facility] [place] Last Admin: 07/10/21 07:59 Dose: 10 mg Documented by: Pregabalin (Pregabalin 75 Mg Capsule) 75 mg PO BID [facility] [place] Last Admin: 07/10/21 07:59 Dose: 75 mg Documented by: Sacubitril/Valsartan (Sacubitril/Valsartan 24-26 Mg Tablet) 1 each PO BID [facility] [place] Last Admin: 07/10/21 07:59 Dose: 1 each Documented by: Sevelamer Carbonate (Sevelamer 800 Mg Tablet) 2,400 mg PO TIDAC [facility] [place] Last Admin: 07/10/21 06:21 Dose: 2,400 mg Documented by: Temazepam (Temazepam 15 Mg Capsule) 15 mg PO BEDTIME PRN PRN Reason: INSOMNIA Vitals/I&O/Wt Last Vital Signs Temp 98.0 F 07/09/21 20:00 Pulse 64 07/10/21 08:16 Resp 18 07/10/21 08:13 BP 116/70 07/10/21 07:57 Pulse Ox 96 07/10/21 08:13 07/09/21 07/10/21 07/10/21 22:59 06:59 14:59 Intake Total 400 / 400 300 / 700 Output Total 4300 / 4300 0 / 4300 Balance -3900 / -3900 300 / -3600 Weight last 48 hrs Weight 196 lb 3.2 oz Weight 201 lb 8.04 oz Weight 203 lb Physical Exam Narrative: EXAM NARRATIVE: GENERAL: The patient is alert and oriented times three. Not in any acute distress. Somewhat lethargic. HEENT:Mild pallor, icterus or lymphadenopathy. The pupils are symmetrical NECK: Trachea appears to be central. No masses noted. No JVD or thyromegaly appreciated. No carotid bruit. RESPIRATORY: Chest is symmetrical. No intercostals muscle retraction or any accessory muscle activation. There is no chest wall tenderness. Breath sounds are heard bilaterally. No rales or rhonchi heard. No evidence of any consolidation. BREASTS: Deferred. HEART: Patient has diffuse impulse in the apex. No other palpable precordial events. Normal S1 and S2 with a soft S3. No pericardial rub or any click heard. ABDOMEN: No vessel pulsations or distention. No tenderness. No organomegaly appreciated. No abdominal bruit. Bowel sounds are normally heard. : Deferred. Large area of ecchymosis in the right groin. RECTAL: Deferred. LYMPHATIC: No lymphadenopathy noted in the neck or groin. EXTREMITIES: No edema or cyanosis. Ecchymosis present in the right groin. MUSCULOSKELETAL: No acute joint deformities or swelling. SKIN: There are no significant scars or skin rash noted. NEUROPSYCHIATRIC: The patient is alert and oriented x3. Slightly lethargic. No focal motor deficits. Data : 07/10/21 06:40 07/10/21 06:40 A&P Assessment and plan (1) Atherosclerotic heart disease of [place] coronary artery with other forms of angina pectoris: Patient had a cardiac catheterization yesterday. He was found to have a high-grade in-stent narrowing in the mid LAD. The intermedius artery ( high obtuse marginal branch) was found to have moderate disease proximally. Patient underwent a PCI of the LAD lesion. Patient was on Aggrastat. We will start him on Plavix 75 mg p.o. daily. May continue on the Plavix. Status: Acute (2) Ischemic cardiomyopathy: Since he had a coronary intervention and also since he has not been on any heart failure medications, we may wait for 3 months to optimize medical treatment, before we implant the internal cardiac defibrillator. Till then, I recommended him to have a LifeVest. Apparently the patient had a problems with the LifeVest in the past and is not wanting to use it. He will take a chance at this point. We will try to optimize his medical treatment. Reevaluate the LV function after 3 months. Based on results, further recommendations will be made. Status: Acute (3) Acute on chronic systolic heart failure: The heart failure symptoms are better now. Patient was started on Entresto and seems to be tolerating it so far well. 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 May continue on the current management as per the pulmonology (5) ESRD (end stage renal disease): Awaiting nephrology decision as to whether to have another dialysis today or not. (6) Hemochromatosis: Continue on the current measures. Status: Acute Qualifiers: Hemochromatosis type: unspecified Qualified Code(s): E83.119 - Hemochromatosis, unspecified (7) Pulmonary hypertension: Continue on the current management. I not require specific intervention at this point. (8) Hematoma: The pseudoaneurysm is resolved in the groin. Patient had ultrasound- guided compression yesterday. Status: Acute Additional A&P Information If the patient continues remain stable, may be discharged home from a cardiac standpoint. Please make appointment the [facility] to be seen by the nurse practitioner next week. Appointment with me in the office in 1 month. Continue on the Entresto, Plavix, metoprolol, isosorbide & Atrovastatin Attestations Medical Necessity Statement*: Patient requires continued hospital stay for close monitoring and further management Coding Level of Care Code Acute Metrology Manager for Ger Fwd Diagnoses Atherosclerotic heart disease of [place] coronary artery with other forms of angina pectoris I25.118 Ischemic cardiomyopathy I25.5 Acute on chronic systolic heart failure I50.23 Idiopathic pulmonary hemosiderosis J84.03 ESRD (end stage renal disease) N18.6 Hemochromatosis E83.119 Hemochromatosis type: unspecified Pulmonary hypertension I27.20 Hematoma T14.8XXA
--- NOTE | 2021-07-10 10:32 | P.PN_ITS ---
Subjective Subjective: Interval history: Groin is a little tender. No other new issues. Dialysis went well yesterday. Plan for dialysis and discharge today Medications: Reviewed: Yes Medication Review Details: Current Medications Al Hydrox/Mg Hydrox/Simethicone (Pike-Hok-Bdzrbtzdw-Maninder 30 Ml Udc) 30 ml PO Q15M PRN PRN Reason: INDIGESTION Albuterol Sulfate (Albuterol 8 Gm Mdi) 2 puff INHALATION QID PRN PRN Reason: shortness of breath or wheezing Last Admin: 07/10/21 08:12 Dose: 2 puff Documented by: Alprazolam (Alprazolam 0.5 Mg Tablet) 0.25 mg PO TID PRN PRN Reason: ANXIETY Last Admin: 07/09/21 23:29 Dose: 0.25 mg Documented by: Aspirin (Aspirin 81 Mg Ec Tablet) 81 mg PO DAILY [facility] Last Admin: 07/10/21 07:59 Dose: 81 mg Documented by: Atropine Sulfate (Atropine 1 Mg/Ml Sdv 1 Ml) 0.5 mg IVP PRN PRN PRN Reason: Symptomatic bradycardia Azathioprine (Azathioprine 50 Mg Tablet) 75 mg PO DAILY [facility] Last Admin: 07/10/21 08:00 Dose: 75 mg Documented by: Clopidogrel Bisulfate (Clopidogrel 75 Mg Tablet) 75 mg PO DAILY [facility] Last Admin: 07/10/21 07:59 Dose: 75 mg Documented by: Duloxetine HCl (Duloxetine 20 Mg Capsule) 20 mg PO BID [facility] Last Admin: 07/10/21 07:59 Dose: 20 mg Documented by: Enoxaparin Sodium (Enoxaparin 80 Mg/0.8 Ml Syringe) 80 mg SUBCUT Q24H [facility] Last Admin: 07/09/21 20:18 Dose: Not Given Documented by: Fluticasone Propionate (Fluticasone Nasal [place] 16gm Btl) 1 spray INTRANASAL BID PRN PRN Reason: Nasal Congestion Tirofiban/Sodium Chloride (Aggrastat) 12.5 mg in 250 mls @ 16 mls/hr IV .[id number] [facility]; Protocol Last Admin: 07/09/21 20:16 Dose: Not Given Documented by: Isosorbide Mononitrate (Isosorbide Mononitrate Er 30 Mg Tablet) 30 mg PO DAILY [facility] Last Admin: 07/10/21 07:59 Dose: 30 mg Documented by: Lidocaine/Prilocaine (Lidocaine-Prilocaine Cream 5 Gm) 0 applic TOPICAL PRN [facility] Magnesium Hydroxide (Magnesium Hydroxide 30 Ml Udc) 30 ml PO DAILY PRN PRN Reason: CONSTIPATION Metoprolol Tartrate (Metoprolol Tartrate 25 Mg Tablet) 25 mg PO BID@0900,2100 [facility] Last Admin: 07/10/21 07:58 Dose: 25 mg Documented by: Naloxone HCl (Naloxone 0.4 Mg/Ml Sdv) 0.1 mg IVP Q2M PRN PRN Reason: RESPIRATORY RATE < 8/MIN Nitroglycerin (Nitroglycerin 0.4 Mg Sublingual Tablet) 0.4 mg SUBLINGUAL Q5M PRN PRN Reason: Pain Ondansetron HCl (Ondansetron 4 Mg Tablet) 4 mg PO Q8H PRN PRN Reason: NAUSEA Oxycodone/Acetaminophen (Oxycodone-Apap 5-325 Mg Tablet) 1 tab PO Q6H PRN PRN Reason: Moderate To Severe Pain Last Admin: 07/10/21 03:57 Dose: 1 tab Documented by: Pantoprazole Sodium (Pantoprazole Dr 40 Mg Tablet) 40 mg PO DAILY [facility] Last Admin: 07/10/21 07:59 Dose: 40 mg Documented by: Prednisone (Prednisone 10 Mg Tablet) 10 mg PO DAILY [facility] Last Admin: 07/10/21 07:59 Dose: 10 mg Documented by: Pregabalin (Pregabalin 75 Mg Capsule) 75 mg PO BID [facility] Last Admin: 07/10/21 07:59 Dose: 75 mg Documented by: Sacubitril/Valsartan (Sacubitril/Valsartan 24-26 Mg Tablet) 1 each PO BID [facility] Last Admin: 07/10/21 07:59 Dose: 1 each Documented by: Sevelamer Carbonate (Sevelamer 800 Mg Tablet) 2,400 mg PO TIDAC [facility] Last Admin: 07/10/21 06:21 Dose: 2,400 mg Documented by: Temazepam (Temazepam 15 Mg Capsule) 15 mg PO BEDTIME PRN PRN Reason: INSOMNIA Vitals/I&O/Wt Last Vital Signs Temp 98.0 F 07/09/21 20:00 Pulse 64 07/10/21 08:16 Resp 18 07/10/21 08:13 BP 116/70 07/10/21 07:57 Pulse Ox 96 07/10/21 08:13 07/09/21 07/10/21 07/10/21 22:59 06:59 14:59 Intake Total 400 / 400 300 / 700 Output Total 4300 / 4300 0 / 4300 Balance -3900 / -3900 300 / -3600 Weight last 48 hrs Weight 88.995 kg Weight 91.4 kg Weight 92.079 kg Physical Exam Narrative: EXAM NARRATIVE: Constitutional: Awake, comfortable HEENT: Wet mucosa, no jvp, non icteric Lungs: Bilaterally clear without discernible wheeze, rales in all lung zones CVS: S1 S2, no murmurs Abdo: Soft, BS ok Ext 4: Minimal edema, peripheral perfusion with no cyanosis Neurological: Grossly non-focal Data : 07/10/21 06:40 07/10/21 06:40 A&P Additional A&P Information 1. ESRD We will plan to do dialysis today and discharge him thereafter. 3K, UF 2L, 3hr treatment Dose medication for GFR less than 15 2. CAD s/p stent placement appreciated pseudoaneurysm decompressed Currently on ARB therapy, beta-luis carlos 3. Hemodynamics Blood pressure and pulse have been nicely stable, continue to monitor closely 4. Chronic ESRD issues to be addressed as outpatient as part of standard monthly management. - DC post dialysis today Rei Jacob MD Nephrology [phone] Patient seen and examined via telemedicine, with the assistance of the bedside RN > 25 min spent in evaluation and mgmt of patient Attestations Medical Necessity Statement*: esrd Coding Level of Care Code Acute Air Route Traffic Controller for Ger Godfrey
--- NOTE | 2021-07-10 12:31 | PM.DCS ---
Discharge Providers Date of Admission: 07/06/21 15:26 Date of Discharge: July 10, 2021 Attending Provider at Admission: Dawson Knowles Attending Provider at Discharge: Dawson Knowles Primary Care Provider: Michael Eubanks DO Diagnoses at Discharge Discharge Diagnosis (1) Atherosclerotic heart disease of [place] coronary artery with other forms of angina pectoris: Status: Acute (2) Ischemic cardiomyopathy: Status: Acute (3) Acute on chronic systolic heart failure: Status: Acute (4) Idiopathic pulmonary hemosiderosis: Status: Acute (5) ESRD (end stage renal disease): Status: Acute (6) Hemochromatosis: Status: Acute Qualifiers: Hemochromatosis type: unspecified Qualified Code(s): E83.119 - Hemochromatosis, unspecified (7) Pulmonary hypertension: Status: Acute (8) Hematoma: Status: Acute Reason for Visit Reason for Visit: Sent from Dr. Landis/SOB/Abnormal Echo Hospital Course Hospital Course Pleasant 51-year-old gentleman with ESRD on hemodialysis MWF via left arm fistula, CAD with prior stenting, ischemic cardiomyopathy, hemochromatosis, hemosiderosis of the lung, recurrent hemoptysis, pulmonary hypertension, DM2, other comorbidities was admitted for assessment management due to progressively worsening dyspnea, orthopnea, lower extremity edema, burning pain sensation in the left side of his chest, with preadmission echocardiogram noted with worsening junction fraction down to 18%. He underwent additional hemodialysis on presentation due to acute diastolic CHF, as well as hyperkalemia, potassium 6.5, with history of CAD, as well as episodes of chest discomfort was also assessed by cardiology. Initially on anticoagulation and has could not rule out additionally PE, subsequently underwent VQ scan with low probability. No DVT noted on venous duplex of lower extremities. He has been vaccinated for COVID-19, having recently completed a series. He did not exhibit other symptoms of the illness. He was additionally assessed by coronary angiography due to new worsening of ejection fraction, episodes of chest discomfort, with finding of LAD in-stent restenosis as well as obtuse marginal branch stenosis. He underwent treatment with PCI, stenting. Chest discomfort so frequently has resolved. With hemodialysis lower extremity edema has resolved. Dyspnea, orthopnea improved. Overall he is feeling much better. He is still requiring 2 L of oxygen and home oxygen evaluation will be obtained prior to discharge. Right groin hematoma was noted following angiography with finding of small, 1 cm pseudoaneurysm treated ultrasonographically with compression with described resolution on follow-up this morning. He is otherwise doing well, and cleared for discharge by cardiology after hemodialysis today with request to continue aspirin, metoprolol, and add Plavix, statin, Entresto and Imdur. He is asked to discontinue any iron-containing supplements. He is asked to follow-up with hematology in office for discussion of treatment of hemochromatosis which he says was genetically confirmed in [place], with consideration of iron chelating agents as phlebotomy may be difficult, with target ferritin of 50-100. Currently ferritin 248. Physical Exam Const: COMMON NORMALS: no acute distress, patient oriented x3 and alert GENERAL APPEARANCE: cooperative ORIENTATION/CONSCIOUSNESS: Yes awake HENMT: COMMON NORMALS: oropharynx normal Neck/C-Spine: COMMON NORMALS: no JVD Resp: COMMON NORMALS: normal respiratory effort and clear to auscultation bilaterally AUSCULTATION: clear to auscultation bilaterally Cardio: COMMON NORMALS: no JVD, regular rhythm, S1 normal heart sound present, S2 normal heart sound present and No murmurs present (Cardio) RHYTHM: regular rhythm HEART SOUNDS: S1 normal heart sound present and S2 normal heart sound present GI: COMMON NORMALS: Normal to inspection, nondistended, normoactive bowel sounds present, Soft to palpation and non-tender PALPATION: Yes Soft to palpation Extremity: COMMON NORMALS: no joint enlargement GENERAL: Yes edema (2+ BL) OTHER: R groin hematoma, large ecchymosis, no palpable pulsatile mass. Neuro: COMMON NORMALS: patient oriented x3 and moves all extremities SENSORIUM/ORIENTATION: Yes alert Skin: COMMON NORMALS: no rashes or lesions noted GENERAL SKIN EXAM: no rashes or lesions noted and ecchymosis Discharge Data Data Completed and Pending: Completed Studies During Hospitalization Category Date Time Status XR chest 1V melva ble [id number] Routine Exams 07/07/21 06:00 Completed XR chest 1V melva ble [id number] Stat Exams 07/06/21 13:29 Completed NM pul vent and p erfus* [id number] Routi ne Nuc Med 07/07/21 17:14 [place] [id number] Rout ine Ultrasound 07/09/21 13:49 [place] [id number] Routin e Ultrasound 07/07/21 17:14 Completed Pending at discharge Category Date Time Status 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 HELPER request 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 Routin e Exams 07/08/21 12:00 Taken Complete Blood Co unt w/Auto AM LABS Lab 07/11/21 04:00 Ordered Complete Blood Co unt w/Auto AM LABS Lab 07/12/21 04:00 Ordered Comprehensive Met abolic Panel AM LA BS Lab 07/11/21 04:00 Ordered Comprehensive Met abolic Panel AM LA BS Lab 07/12/21 04:00 Ordered Immunochemical Fe vicente OCB Routine Lab 07/07/21 21:38 Uncollected PRBC [Leukocyte R educed RBC] Routin e Lab 07/09/21 01:02 Results Type and Screen S tat Lab 07/08/21 20:40 Results Vitamin D 1,25 Di hydroxy Routine Lab 07/06/21 14:02 [place] [id number] Rout ine Ultrasound 07/10/21 06:00 Taken Labs from last 24 hours 07/10/21 07/10/21 07/09/21 06:40 06:40 16:36 WBC 7.9 RBC 3.07 L Hgb 9.4 L Hct 30.0 L MCV 97.7 H MCH 30.6 MCHC 31.3 RDW 17.8 H Plt Count 139 MPV 10.1 Neut % (Auto) 80.9 Lymph % (Auto) 6.6 Dewitt % (Auto) 10.2 Eos % (Auto) 1.3 Baso % (Auto) 0.5 Neut # (Auto) 6.41 Lymph # (Auto) 0.5 L Dewitt # (Auto) 0.8 Eos # (Auto) 0.1 Baso # (Auto) 0.0 Nucleated RBC % (a uto) 0 Nucleated RBCs # 0.0 Sodium 135 L Potassium 4.1 Chloride 94 L Carbon Dioxide 27 Anion Gap 18.1 BUN 27 H Creatinine 6.3 H* GFR Calculation 9.4 L Glucose 75 POC Glucose 180 H Calculated Osmolal ity 284 L Calcium 8.3 L Total Bilirubin 0.8 AST 10 ALT 9 Alkaline Phosphata se 54 Total Protein 5.7 L Albumin 3.4 L Globulin 2.3 Vitals: Last Vital Signs Temp 97.7 F 07/10/21 12:04 Pulse 65 07/10/21 12:04 Resp 18 07/10/21 12:04 BP 98/66 07/10/21 12:04 Pulse Ox 96 07/10/21 08:13 Discharge Plan Discharge Patient Disposition: Home Condition: Stable Prescriptions: New Entresto 24-26 mg Tablet 1 tab PO BID Qty: 90 RF: 0 isosorbide mononitrate 30 mg Tablet Extended Release 24 Hr 30 mg PO DAILY Qty: 90 RF: 0 atorvastatin 40 mg Tablet 40 mg PO BEDTIME Qty: 90 RF: 0 clopidogrel 75 mg Tablet 75 mg PO DAILY Qty: 90 RF: 0 Continued promethazine 12.5 mg tablet 12.5 mg PO Q6H PRN (Reason: Nausea) RF: 0 albuterol sulfate 90 mcg/actuation HFA aerosol inhaler 2 puff inhalation QID PRN (Reason: shortness of breath or wheezing) 30 Days Qty: 8.5 RF: 2 aspirin 81 mg tablet,delayed release (DR/EC) 81 mg PO DAILY RF: 0 nitroglycerin [Nitrostat] 0.4 mg tablet, sublingual 0.4 mg SUBLINGUAL Q5M PRN (Reason: Pain) RF: 0 metoprolol tartrate 50 mg tablet 50 mg PO DAILY RF: 0 oxycodone-acetaminophen 5-325 mg tablet 1 tab PO Q6H PRN (Reason: Moderate To Severe Pain) 7 Days Qty: 28 RF: 0 pregabalin [Lyrica] 75 mg capsule 75 mg PO BID RF: 0 fluticasone propionate [Flonase Allergy Relief] 50 mcg/actuation spray,suspension 1 spray intranasal BID PRN (Reason: Nasal Congestion) RF: 0 lidocaine-prilocaine 2.5-2.5 % cream See Rx Instructions .ROUTE .COMPLEX RF: 0 sevelamer HCl 800 mg tablet 2,400 mg PO TID RF: 0 azathioprine 50 mg tablet 75 mg PO DAILY RF: 0 prednisone 10 mg tablet 10 mg PO DAILY RF: 0 Heparin Injection See Rx Instructions .ROUTE .COMPLEX RF: 0 pantoprazole 40 mg tablet,delayed release (DR/EC) 40 mg PO DAILY RF: 0 duloxetine 20 mg capsule,delayed release(DR/EC) 20 mg PO BID RF: 0 Discontinued amlodipine 10 mg tablet 10 mg PO BEDTIME RF: 0 RenaPlex-D 800 mcg-12.5 mg -2,000 unit tablet See Rx Instructions .ROUTE .COMPLEX RF: 0 Auryxia 210 mg iron tablet See Rx Instructions .ROUTE .COMPLEX RF: 0 Discharge Orders: Discharge Order (Routine); Ordered 07/10/21 Ordered By: Dawson Knowles Referrals: Isauro Landis MD [Physician] - 09/22/21 2:00 pm (You have a cardiology followup at [facility] with Dr. Landis to be seen on September 22 at 2:00pm) Mindy Fowler FNP [Nurse Practitioner] - 07/17/21 9:00 am (You have a followup at [facility] with EDER Harris to be seen on July 17 at 9:00am) Nicholas Ramírez MD [Staff Physician] - 7-10 days (Hemochromatosis, worsening CHF, ESRD) Michael Eubanks DO [Primary Care Provider] - 07/20/21 9:30 am (You have a hospital followup with Dr. Eubanks at [facility] on July 20 at 9:30am) Discharge Diet: As Directed Discharge Activity: Increase activity as tolerated and Limit activity as instructed Patient Instructions: Isosorbide Mononitrate (By mouth), Valsartan (By mouth), Clopidogrel (By mouth), Amlodipine/Atorvastatin (By mouth), Hemochromatosis, Left Heart Catheterization (DC), Coronary Intravascular Stent Placement (DC), Hemochromatosis (GEN), Inguinal Hernia (GEN), Opioid Safety Activity Restrictions/Additional Instructions: Continue cardiac, renal hemodialysis diet. Avoid lifting any thing higher than 3 pounds for 2 days. If you notice any worsening of hematoma/bruising around the angiography access site, or if you notice pulsatile mass, seek medical attention immediately. Similarly if you notice chest pain or pressure that is unresolving, shortness of breath, or any other concerning symptoms. Please follow-up with cardiology in office for reassessment and for follow-up of cardiomyopathy, consideration of defibrillator. Please follow-up also with hematology for assessment and consideration of initiation of treatment for hemochromatosis. Please avoid any vitamins or supplements that contain iron. Avoid any vitamin C supplementation. Abstain from any alcohol. Avoid red meat. Avoid raw seafood. Continue follow-up with your primary provider for screening of endorgan damage including liver disease, liver cancer, follow-up on cardiomyopathy, diabetes among others. Consider getting individual vitamins [id number] that are contained in your Renaplex-D vitamins except for vitamin C or any iron. Please follow-up with your pulmonology Dr., Discuss with them when it may be safe for you to revisit with surgery again with regards to repair of the hernia. Discharge Attestations Time Spent in Discharge Care*: greater than 30 min Status at Discharge: Cognitive status at discharge: cognitively intact, Behavioral status at discharge: cooperative and independent in ADL's, Quality Metrics Clinical Quality Measures During this hospital stay, did patient experience: None Coding Level of Care Code Acute Chg FW DC note Exam Comprehensive Diagnoses Atherosclerotic heart disease of [place] coronary artery with other forms of angina pectoris I25.118 Ischemic cardiomyopathy I25.5 Acute on chronic systolic heart failure I50.23 Idiopathic pulmonary hemosiderosis J84.03 ESRD (end stage renal disease) N18.6 Hemochromatosis E83.119 Hemochromatosis type: unspecified Pulmonary hypertension I27.20 Hematoma T14.8XXA
--- NOTE | 2021-07-10 14:47 | PC.CHAP ---
Pastoral Care Encounter/Spiritual Assessment Type of Contact [] Declined eyelet row marker visit [] Patient/Family/Request visit [] Outpatient visit [xx] Follow-up visit [] Physician referral [] Code/Alert [xx] Routine visit [] Staff referral [] Actively dying [] Patient sleeping [] Family support [] [] Out of room [] Palliative care [] [] Receiving care in room [] Pre-surgical visit [] Trauma [xx] Long length of stay [] ICU visit [] Other: Relational/Emotional Strength [xx] Patient feels connected with others/family/visitors/staff [] Distress [] Loneliness/isolation [] Abandonment Spirituality of Patient [xx] Person of Ashley [] Attends Moravian of their [place] [xx] Believes in Prayer [xx] Reads Bible or Tenriism materials [] There are Spiritual issues to be addressed Meat Passer Interventions [xx] Prayer [xx] Active listening [xx] Non-anxious presence [] Spiritual/emotional support [] Crisis/trauma care [] Spiritual counseling [] Bereavement support [] Provided bereavement packet [xx] Provided Bible/devotional materials [] Provided toy/stuffed animal, coloring book to patient or family member [] Provided Communion [] Anointing/[place] [] Salvation [xx] Completed spiritual assessment [] Other: Impact on Illness or Injury [] Angry [] Fearful [] Anxious [] Often cries [] Exhaustion [] Unable to work [] Unable to attend restoration [] Unable to walk/stand [] Unable to read [] Unable to drive [] Unable to eat/drink [] Unable to sleep [] Unable to be with family [] Patient intubated [] Other: Summary Gave [employer] Daily [employer] to patient. Patient is feeling better except for muscle pain in his back. He's worried about continuing dialysis [facility] and fears he may never get a kidney transplant due to an immune deficiency. He brother 2 years ago and his kidneys were given to two other people because patient was not medically ready/eligible for a transplant at that time. Patient has regrets and anger over this. Time spent with patient 22 minutes
[2021-07-10] MEDS: atorvastatin 40 mg Tablet PO (15:16)
--- NOTE | 2021-07-10 15:46 | PC.NURSE ---
pt had dialysis today and tolerated well.plan for discharge this afternoon
--- NOTE | 2021-07-10 16:36 | PC.RESP ---
PULMONARY REHAB INFORMATION SENT TO PATIENT.
--- NOTE | 2021-07-10 16:49 | PC.NURSE ---
Discharge Note Patient discharged to []home via []w/c accompanied by [ready transport staff]. Discharge instructions reviewed with patient and/or merchandising representative. Mobile pharmacy medications and/or prescriptions provided. Belongings/home medications returned.
[2021-07-11 23:37] LABS: Vit D 1,25 (Oh)2, Total 17 pg/mL (18-72); Vit D2 1,25 (Oh)2 <8 pg/mL; Vit D3 1,25 (Oh)2 17 pg/mL
--- NOTE | 2021-07-13 09:24 | PC.SOCIAL ---
discharge follow up call made, spoke with patient. 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 patient has understanding of what medications are new and how to take as prescribed. patient reports some bruising to incision but nothing worse than at discharge. advised patient if swelling became worse, increased tenderness or redness, to seek medical attention by calling Dr. Landis's office or going to the ED. Patient is aware of follow up appointment dates and times. Notified pt that Dr. Ramírez's office would be calling him but if he didn't hear from them by this afternoon or tomorrow to call.
== END 2021-07-10 16:50 | disposition home or self-care (01) | DRG 246 ==
LOC: ER 13:28 → CSU 15:50
PROVIDERS: Internal Medicine Cardiovascular Disease; Internal Medicine Nephrology; Admitting Provider Internal Medicine; Emergency Provider Family Medicine; PCP Internal Medicine; Visit Provider Internal Medicine
PROC: 027034Z Dilation of Coronary Artery, One Artery with Drug-eluting Intraluminal Device, Percutaneous Approach (ICD-10-PCS; principal; 2021-07-08 16:30)
DX: T82.855A Stenosis of coronary artery stent, initial encounter (principal); I50.23 Acute on chronic systolic (congestive) heart failure; N18.6 End stage renal disease; I13.2 Hypertensive heart and chronic kidney disease with heart failure and with stage 5 chronic kidney disease, or end stage renal disease; J84.03 Idiopathic pulmonary hemosiderosis; I97.630 Postprocedural hematoma of a circulatory system organ or structure following a cardiac catheterization; Y71.1 Therapeutic (nonsurgical) and rehabilitative cardiovascular devices associated with adverse incidents; I25.118 Atherosclerotic heart disease of native coronary artery with other forms of angina pectoris; N40.0 Benign prostatic hyperplasia without lower urinary tract symptoms; I25.5 Ischemic cardiomyopathy; E11.22 Type 2 diabetes mellitus with diabetic chronic kidney disease; Z99.2 Dependence on renal dialysis; J44.9 Chronic obstructive pulmonary disease, unspecified; Z86.718 Personal history of other venous thrombosis and embolism; E78.2 Mixed hyperlipidemia; E83.119 Hemochromatosis, unspecified; Z87.891 Personal history of nicotine dependence; I25.2 Old myocardial infarction; Z87.01 Personal history of pneumonia (recurrent); I27.20 Pulmonary hypertension, unspecified; E87.5 Hyperkalemia; Z79.52 Long term (current) use of systemic steroids; D63.1 Anemia in chronic kidney disease; Z79.51 Long term (current) use of inhaled steroids; Z79.82 Long term (current) use of aspirin; Z79.891 Long term (current) use of opiate analgesic; Z99.81 Dependence on supplemental oxygen
CPT/HCPCS: 36415; 36416; 71045; 78014; 80048; 80053; 82306; 82310; 82652; 82728; 82962; 83735; 83880; 83970; 84100; 84443; 84484; 84550; 85014; 85018; 85025; 85347; 85730; 86706; 86803; 86850; 86900; 86920; 87340; 93005; 93306; 93452; 93926; 93970; 94640; 96372; 97110; 97161; 99285; A9540; A9567; C1725; C1769; C1874; C1887; C1894; C9600; J0153; J1644; J1650; J2250; J2270; J3010; J3246; J3490; J3535; J7030; J7500; J7512; Q3014; Q9967

== ENCOUNTER 2021-08-18 08:10 | Outpatient (CLI) | payer MEDICARE, MEDICAID, SELFPAY ==
--- NOTE | 2021-08-18 18:45 | ONC CON_ITS ---
Dr. Colon New Patient Note Patient: Marlon Dorantes Unit #: [id number]: 1970 Dicatated By: Michael Colon M.D.Date of Visit: Aug 18, 2021 Onc MED New Patient/Consult Referring Physician: Dr. Dawson Knowles M.D. Chief Complaint: Hemochromatosis. History of Present Illness: This is a 51-year-old man with hereditary hemochromatosis. This patient has multiple medical illnesses, the most significant being coronary artery disease with ischemic cardiomyopathy and end-stage renal disease, for which he has been on hemodialysis since 2018. During a hospitalization in [place], which he thinks was sometime in 2019, he was found to have hereditary hemochromatosis based on genetic testing. 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 He does not know or recall how high it is serum iron or ferritin levels may have been. However, prior to that he had been receiving Venofer infusions with his dialysis, and those were discontinued. He has had no other specific treatment. In June he had been admitted to the hospital with chest pain and worsening congestive heart failure. A preadmission echocardiogram had shown significant worsening of his ejection fraction, down to 18% compared to 30 to 35% in June 2020. His coronary angiography showed LAD in-stent restenosis as well as obtuse marginal branch stenosis, and at that time he underwent coronary angioplasty/stent placement. His laboratory evaluation included serum ferritin level which was elevated at 248 ng/mL, and with that finding I am asked to see him in regard to the hemochromatosis. On review of his records in [facility], he had serum ferritin level checked on 2 prior occasions, namely in April 2020 when it was significantly elevated at 637 ng/mL and in June 2020 when it was slightly lower at 584 ng/mL. He also had serum iron studies which showed a progressive decline in transferrin saturation from 64.9% in March 2020, to 35.8% in April 2020, and to 9.6% in June 2020. He complains that he is tired all the time and that he sleeps a lot. He has very limited activity tolerance. His ECOG score is 2. His appetite is variable. He has not had fever. He rarely has night sweating. He has had some cough and he is short of breath with any activity. He also has some resting dyspnea and he is unable to lie down due to shortness of breath. He is not having as much chest discomfort since his recent stent procedure. He has a lot of nausea and he has vomiting at least 3 or 4 times a week. He has tried numerous antiemetics, most recently Phenergan, that really is not helping significantly. He has acid reflux, for which he has been taking pantoprazole. His bowel movements have been regular, though different. He has not been aware of any blood in the stool. He is still making urine, and he has no significant complaints with his bladder function. He has arthritis pain, especially in his arms, hands, and hips. He also has chronic pain in his neck and back. He does not complain of headache or dizziness. He does have some numbness/tingling. He reports having anxiety and depression, and he also has problems with memory and concentration. Past Medical History: His medical history includes anxiety/depression, chronic anemia, chronic systolic heart failure, degenerative arthritis/degenerative disease of the spine, end stage renal disease, gastroesophageal reflux disease, hereditary hemochromatosis, history of deep vein thrombosis, history of gout, hyperlipidemia, hypertension, idiopathic pulmonary hemosiderosis, ischemic cardiomyopathy, pulmonary hypertension, and type 2 diabetes, no longer requiring medication. Past Surgical History: His surgical/procedural history includes coronary angioplasty/stent placement in 2014 and in June 2021, elbow surgery, hand surgery, placement of left forearm AV fistula for dialysis, thoracotomy, thoracotomy with wedge lung biopsies of the right middle lobe in 2019, bronchoscopy in 2018, placement of tunneled right internal jugular vein hemodialysis catheter in 2017, cervical laminectomy in 2011, lumbar laminectomy in 2010, and carpal tunnel release in 2006. Medications: Adult Aspirin EC Low Strength 1 Tablet (of 81 mg) Tablet, enteric coated Oral daily, Albuterol Sulfate 2 Puff(s) (of 108 (90 base) mcg/act) Aerosol Powder, Breath Activated Inhalation four times a day PRN, Atorvastatin Calcium 1 Tablet (of 40 mg) Oral daily, azaTHIOprine 1.5 Tablet (of 50 mg) Oral daily, Clopidogrel Bisulfate 1 Tablet (of 75 mg) Oral daily, DULoxetine HCl 1 Tablet (of 20 mg) Capsule Delayed Release Particles Oral b.i.d., Entresto 1 Tablet (of 24-26 mg) Oral b.i.d., Flonase 1 [place](s) (of 50 mcg/act) Suspension Nasal b.i.d. PRN, Heparin Sod (Porcine)-D10 Intravenous, Isosorbide Mononitrate ER 1 Tablet (of 30 mg) Tablet SR 24 HR Oral daily, Lidocaine-Prilocaine Cream Topical, Lyrica 1 Tablet (of 75 mg) Capsule Oral b.i.d., Metoprolol Tartrate 1 Tablet (of 50 mg) Oral daily, Nitroglycerin (0.4 mg) Tablet, sublingual Sublingual Take as Directed, oxyCODONE-Acetaminophen 1 Tablet (of 5-325 mg) Oral q 6 hours PRN, Pantoprazole Sodium 1 Tablet (of 40 mg) Tablet, enteric coated Oral daily, predniSONE 1 Tablet (of 10 mg) Oral daily, Promethazine HCl 1 Tablet (of 12.5 mg) Oral q 6 hours PRN, Sevelamer HCl 3 Tablet (of 800 mg) Oral t.i.d. Allergies: Azithromycin and Carvedilol. Social History: Mr. Dorantes is . He previously worked for the [email or web address]. He is now disabled. He has a history of smoking 1 pack of cigarettes daily for somewhere in the range of 15 to 20 years. He quit smoking in 2007. He has had alcohol use in the past, which apparently was fairly heavy. He quit drinking about the same time. Family History: Father is still living at age 70, but his health status is unknown to the patient. Mother age 52 with liver disease secondary to hepatitis C. He had 2 full siblings, including a brother who of an overdose and a sister who is in good health. He has 2 children. Review Of Symptoms: Constitutional - He complains that he is tired all the time and has very limited activity tolerance. He also sleeps a lot, but he is up and around. Appetite is variable, generally not good. He has not had fever. He rarely has sweating at night. ECOG score is 2, Eyes - He has had some decline in visual acuity, ENMT - No hearing loss or tinnitus. He has some sinus congestion. He complains of dry mouth. No sore throat or difficulty swallowing, Hematologic/Lymphatic - He has easy bruising. He has been anemic, Respiratory - He has shortness of breath with activity and sometimes at rest. He has some cough. No pleuritic pain or hemoptysis, Cardiovascular - He has been having chest pain, that is better now. No palpitations, Gastrointestinal - He has a lot of nausea and he has vomiting at least 3 or 4 times a week. His acid reflux is adequately managed with pantoprazole. His bowel movements are regular, but different. No blood in the stool or black stools, Genitourinary (M) - He still has urine output. He does not complain of dysuria or hematuria. He does have some hesitancy. No incontinence. He has erectile dysfunction, Musculoskeletal - He has joint pain in the arms, hands, and hips. He also has chronic neck and back pain, Integumentary - No skin rash or other skin changes, Neurologic - No headache or dizziness. He has some numbness/tingling, Psychiatric - He has anxiety and depression. No insomnia. Vital Signs: Performed on Aug 18, 2021 09:07: 8, 6, 26.98, 2.03 sq.m, 70 in, 91 % (LOW), 80 /min, 18 /min, 131/77 mm(hg), 98.0 F (LOW), and 188 lbs (HIGH). Physical Examination: Constitutional - He appears generally weak, Eyes - Sclerae nonicteric. Conjunctivae clear. There is a small scleral hemorrhage on the left, ENMT - No lesions noted in the oral cavity, Neck - No mass or thyromegaly, Hematologic/Lymphatic - No cervical, clavicular, or axillary adenopathy, Respiratory - Lungs sound clear, Cardiovascular - Heart rhythm is regular. There is a II/ systolic murmur. There is no gallop or rub noted, Abdomen - Soft. There is some mild, generalized abdominal tenderness. Liver and spleen are not enlarged. There is no abdominal mass or ascites noted and there is no inguinal adenopathy, Back/Spine - No spine or CVA tenderness noted, Extremities - There is currently no edema, Integumentary - No rashes. No suspicious skin lesions noted, Neurologic - No focal neurologic deficits noted. Problem List: 1. Hereditary hemochromatosis. 2. Hypertension. 3. Hyperlipidemia. 4. Coronary artery disease with recent angioplasty/stent placement. 5. Ischemic cardiomyopathy with congestive heart failure. 6. End-stage renal disease, on hemodialysis. 7. Chronic anemia, presumed secondary to above. 8. Idiopathic pulmonary hemosiderosis. 9. Pulmonary hypertension. 10. Degenerative arthritis/degenerative disease of the spine. 11. History of gout. 12. History of right upper extremity deep vein thrombosis. 13. History of type 2 diabetes, no longer requiring treatment. 14. Anxiety and depression. Problems Addressed with this Encounter and Plan: Patient with hereditary hemochromatosis, confirmed by HFE gene analysis. I do not have that actual report available, but apparently it showed homozygosity or double heterozygosity for HFE gene mutations. I also do not have any records available to indicate the baseline transferrin saturation or serum ferritin, but he has not had any specific treatment. The issue is to what extent iron overload may be contributing to his cardiomyopathy, and that may be a very difficult question to answer. At this point I will order a repeat CBC with serum iron studies and serum ferritin level with his dialysis tomorrow. Depending on those results, we may want to evaluate further with a cardiac MRI study and consider treatment if there is evidence of cardiac iron deposition. With his chronic anemia, he obviously would not be an appropriate candidate for phlebotomy. However, chelation therapy with deferasirox would potentially be an option, though it would represent an off label usage. In the meantime, I will try to obtain additional records pertaining to his initial hemochromatosis diagnosis. I also will look into the possibility of having him try dronabinol for the nausea/anorexia, but that would be subject to verification of insurance coverage. Signed By: Michael Colon M.D. <<Signature on File>>
== END 2021-08-18 08:11 | disposition home or self-care (01) ==
PROVIDERS: PCP Internal Medicine; Visit Provider Internal Medicine Medical Oncology
DX: E83.110 Hereditary hemochromatosis (principal); I10 Essential (primary) hypertension; E78.5 Hyperlipidemia, unspecified; I25.10 Atherosclerotic heart disease of native coronary artery without angina pectoris; Z95.5 Presence of coronary angioplasty implant and graft; I25.5 Ischemic cardiomyopathy; I50.9 Heart failure, unspecified; N18.6 End stage renal disease; Z99.2 Dependence on renal dialysis; D63.1 Anemia in chronic kidney disease; E83.10 Disorder of iron metabolism, unspecified; J84.03 Idiopathic pulmonary hemosiderosis; I27.20 Pulmonary hypertension, unspecified; M47.9 Spondylosis, unspecified; M10.9 Gout, unspecified; Z86.718 Personal history of other venous thrombosis and embolism; Z86.39 Personal history of other endocrine, nutritional and metabolic disease; F41.9 Anxiety disorder, unspecified; F32.9 Major depressive disorder, single episode, unspecified; Z79.899 Other long term (current) drug therapy
CPT/HCPCS: 99205

== ENCOUNTER 2021-09-07 15:40 | Inpatient (IN) | payer MEDICARE, MEDICAID, SELFPAY ==
[2021-09-07] VITALS (8 sets, daily range): BP systolic 165–175; BP diastolic 98–110; PULSE 84–98; RESP 16–22; TEMP 36.8; O2SAT 96–99; BMI 25.8
--- NOTE | 2021-09-07 15:52 | W.ED.CHESTPA ---
HPI - Chest Pain General: Chief Complaint: Chest Pain Stated Complaint: CP Time Seen by Provider: 09/07/21 15:51 History of Present Illness: HPI narrative: Mr. Dorantes is a 51-year-old gentleman with significant past medical history of hypertension, hyperlipidemia, cardiomyopathy, CHF, end-stage renal disease on hemodialysis who presents emergency department due to chest pain. Symptom onset was approximately 20 hours ago at rest. He initially noted pressure with sharpness in the middle of his chest which was exacerbated by movement. He has associated generalized malaise, shortness of breath, fatigue, nausea. He does have a history of cardiac stents and this is similar to prior symptoms. He denies chest pain in the interval until this most recent episode. He went to dialysis today and then symptoms have been more constant. He denies other specific changes in health, exacerbating or alleviating factors. He has been compliant with his antiplatelet agents. 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 Mixed hyperlipidemia Nicotine dependence, cigarettes, uncomplicated Non-ST elevation (NSTEMI) myocardial infarction Pleural effusion Pneumonia Pulmonary hypertension Right-sided chest pain Sepsis Surgical History H/O elbow surgery H/O hand surgery H/O neck surgery History of back surgery History of intravascular stent placement History of thoracotomy Family History Grandmother , In her 50's Myocardial infarction Father Diabetes Mother Diabetes Social History Smoking and tobacco status: former smoker Quit status (tobacco): has quit using tobacco Year quit tobacco: 1999 - 2PPD x 20 Years Second hand smoke exposure: No Alcohol intake: current Alcohol intake frequency: holidays/special occasions only Lives independently: Yes Household members: spouse Marital status: Current occupational status: disabled History of recent travel: No Current gender identity: Male Physical Exam Narrative: EXAM NARRATIVE: GENERAL/CONSTITUTIONAL - mildly-appearing. No acute distress. Eyes - no scleral icterus, no conjunctival injection ENMT - Atraumatic external nose and ears. Moist mucous membranes NECK - supple. trachea midline CARDIOVASCULAR - regular rate and rhythm. Trace peripheral edema. Chest pain not reproducible with physical exam maneuvers. RESPIRATORY -diminished to auscultation bilaterally. No retractions or accessory muscle use. ABDOMEN/GI - Nontender/Nondistended. No tenderness to percussion or evidence of peritonitis MSK - Extremities without obvious deformity or tenderness to palpation SKIN - Warm, Dry NEURO - alert and appropriately oriented. Moves all extremities equally. Course ED course: - Patient was seen and evaluated by me at bedside - Patient placed on cardiac monitors, IV access obtained - Initial evaluation notable for no acute distress, nontoxic. Chest pain still present. -Symptom treatment ordered. - Labs notable for no leukocytosis, anemia likely secondary to chronic disease. Metabolic panel with mild hypokalemia, replenishment ordered. Elevated troponin. BNP elevated. - Cardiology consult given elevated troponin in addition to chest pain which the patient has not had since prior cath. Heparin drip ordered - Imaging notable for pulmonary vascular congestion - Upon serial reexamination after treatment the patient was similar to mildly improved - Based on patient history, evaluation, labs, and imaging as interpreted the most likely cause of the patient's condition is NSTEMI, fluid overload based on chest x-ray and laboratory findings though patient is not grossly fluid overloaded on exam. - The results of ED evaluation were discussed with the patient including plan for admission due to requirement for level of care not available if discharged to prevent significant worsening/deterioration. - Hospitalist service contacted and agreed admit the patient. - Patient was admitted without further deterioration or significant events. Vital Signs: Vital signs: Vital Signs Temperature 97.9 F 09/10/21 20:00 Pulse Rate 67 09/10/21 21:38 Respiratory Rate 18 09/10/21 21:34 Blood Pressure 125/76 09/10/21 20:00 Pulse Oximetry 97 09/10/21 21:34 MDM - Chest Pain Medical Records: Attestation: I reviewed the patient's medical records. Lab Data: Attestation: I reviewed the patient's lab results. Labs: Lab Results 09/07/21 09/07/21 09/07/21 15:38 15:38 15:38 WBC 8.3 10^3/uL 10^3/ uL (4.0-10.0) RBC 3.40 10^6/uL L 10 ^6/uL (4.1-5.3) Hgb 9.9 g/dL L g/dL (11.7-16.6) Hct 30.8 % L % (42.0-52.0) MCV 90.6 fl fl (80-94) MCH 29.1 pg pg (28.0-34.0) MCHC 32.1 g/dL g/dL (30.0-36.0) RDW 15.1 % % (12.1-15.1) Plt Count 136 10^3/cmm 10^3 /cmm (130-400) MPV 9.7 fL fL (7.4-10.4) Neut % (Auto) 90.1 % % Lymph % (Auto) 3.3 % % [place]lee % (Auto) 5.4 % % Eos % (Auto) 0.1 % % Baso % (Auto) 0.6 % % Neut # (Auto) 7.45 10^3/uL 10^3 /uL (1.8-7.7) Lymph # (Auto) 0.3 10^3/uL L 10^ 3/uL (0.8-4.8) Greenlee # (Auto) 0.5 10^3/uL 10^3/ uL (0.2-0.9) Eos # (Auto) 0.0 10^3/uL 10^3/ uL (0.0-0.8) Baso # (Auto) 0.1 10^3/uL 10^3/ uL (0.0-0.1) Nucleated RBC % (a uto) 0 % % Nucleated RBCs # 0.0 /100WBC /100W BC Sodium 138 mmol/L mmol/L (136-145) Potassium 3.1 mmol/L L mmol /L (3.5-5.1) Chloride 93 mmol/L L mmol/ L (98-107) Carbon Dioxide 27 mmol/L mmol/L (22-29) Anion Gap 21.1 H (5-19) BUN 14 mg/dL mg/dL (6-20) Creatinine 4.8 mg/dL H mg/dL (0.7-1.2) GFR Calculation 12.9 mL/min L mL/ min (90-130) Glucose 101 mg/dL mg/dL (65-115) Calculated Osmolal ity 287 mOsm/kg mOsm/ kg (285-295) Calcium 8.8 mg/dL mg/dL (8.5-10.5) Magnesium Total Bilirubin 1.2 mg/dL mg/dL (0.15-1.2) AST 10 U/L U/L (0-40) ALT 6 U/L U/L (0-41) Alkaline Phosphata se 89 IU/L IU/L (40-130) Troponin T Baselin e 246 ng/L H* ng/L (0-15) Troponin T 120 Min cher[place] Delta Troponin T NT-Pro-B Natriuret Pep > 30073 pg/mL H p g/mL (0-125) Total Protein 7.1 g/dL g/dL (6.6-8.7) Albumin 4.1 g/dL g/dL (3.5-5.2) Globulin 3.0 g/dL g/dL (1.3-4.6) Lipase 33 U/L U/L (13-60) SARS-CoV-2 Ag (Rap id) 09/07/21 09/07/21 09/07/21 15:38 16:16 17:38 WBC RBC Hgb Hct MCV MCH MCHC RDW Plt Count MPV Neut % (Auto) Lymph % (Auto) [place] % (Auto) Eos % (Auto) Baso % (Auto) Neut # (Auto) Lymph # (Auto) [place]lee # (Auto) Eos # (Auto) Baso # (Auto) Nucleated RBC % (a uto) Nucleated RBCs # Sodium Potassium Chloride Carbon Dioxide Anion Gap BUN Creatinine GFR Calculation Glucose Calculated Osmolal ity Calcium Magnesium 1.9 mg/dL mg/dL (1.7-2.3) Total Bilirubin AST ALT Alkaline Phosphata se Troponin T Baselin e Troponin T 120 Min cher[place] 213.9 ng/L H ng/L (0-15) Delta Troponin T -32.1 ABS# L ABS# (0-10) NT-Pro-B Natriuret Pep Total Protein Albumin Globulin Lipase SARS-CoV-2 Ag (Rap id) Negative (Negative) EKG Data^: EKG 1: Attestation: I personally reviewed and interpreted this EKG as follows: EKG interpretation date: 09/07/21 EKG interpretation time: 17:41 Interpretation: Twelve-lead EKG shows a regular rhythm at a rate of 83. TN interval 140, QRS duration 106, QTc 467. Normal axis. Interpretation: Sinus rhythm. Nonspecific ST segment abnormalities which are similar compared to prior. EKG 2: Attestation: I personally reviewed and interpreted this EKG as follows: EKG interpretation date: 09/07/21 EKG interpretation time: 16:08 Interpretation: Twelve-lead EKG shows a regular rhythm at a rate of 76. TN interval 162, QRS duration 104, QTc 473. Normal axis. Interpretation: Sinus rhythm. Similar to prior. Discharge Plan Discharge Admit Provider: Sailaja Carvajal Coding Level of Care Code ED Machine Tool Mechanic for g Epifanio
--- NOTE | 2021-09-07 15:58 | ECG_ITS ---
[facility] Test Date: 2021-09-07 Pat Name: Marlon Dorantes Department: Room: Gender: Male Program Engineer: : 1970 Requested By: Bear Hemphill Order Number: [id number] Tiffani MD: Sun Valle M.D. Measurements Intervals Beals Rate: 76 P: 40 MO: 162 QRS: -4 QRSD: 104 T: 155 QT: 443 QTc: 499 Interpretive Statements SINUS RHYTHM POSSIBLE LEFT ATRIAL ENLARGEMENT [-0.1mV P-WAVE IN V1/V2] LEFT VENTRICULAR HYPERTROPHY AND ST-T CHANGE [VOLTAGE CRITERIA PLUS ST/T ABNORMALITY] Compared to ECG 07/07/2021 11:41:39 No significant changes Electronically Signed On 09-08-2021 12:11:22 ROLL OUT MANAGER by Sun Valle M.D. [id number]
--- NOTE | 2021-09-07 15:58 | XRR_ITS ---
PROCEDURE INFORMATION: Exam: XR Chest Exam date and time: 09/07/2021 3:58 PM Age: 51 years old Clinical indication: Pain; Cough; Radiating and other: Mid chest, radiates to left arm; Prior surgery; Surgery type: Stent; Additional info: Chest pain TECHNIQUE: Imaging protocol: XR of the chest. Views: 1 view. COMPARISON: CR XR chest 1V portable [id number] 07/07/2021 6:36 AM FINDINGS: Lungs: Pulmonary venous congestion and mild bilateral interstitial infiltrates noted. Findings are suggestive of mild fluid overload/CHF. Pleural spaces: Small bilateral pleural effusions are noted. Heart/Mediastinum: Cardiomegaly is present. Vasculature: The thoracic aorta is mildly atherosclerotic. Bones/joints: Postop change of the cervical spine noted. Scoliosis and degeneration of the thoracic spine noted. XR/XR chest 1V portable [id number] IMPRESSION: 1. Cardiomegaly is present. 2. Pulmonary venous congestion and mild bilateral interstitial infiltrates noted. Findings are suggestive of mild fluid overload/CHF. 3. Small bilateral pleural effusions are noted. 4. Previously noted right lower lobe infiltrate has resolved. There is minimal fibrosis at the right lung base. Radiation Dose CTDIVOL = (mGy): DLP = (mGy-cm)
[2021-09-07] MEDS: fentaNYL 50 mcg/mL INJ 2mL IVP ×3 (16:10→20:11)
[2021-09-07 16:24] LABS: Basophils # 0.1 10^3/uL (0.0-0.1); Basophils % 0.6 %; Eosinophils % 0.1 %; Hematocrit 30.8 % (42.0-52.0); Hemoglobin 9.9 g/dL (11.7-16.6); Lymphocytes # 0.3 10^3/uL (0.8-4.8); Lymphocytes % 3.3 %; Mean Corpuscular HGB Conc 32.1 g/dL (30.0-36.0); Mean Corpuscular Hemoglobin 29.1 pg (28.0-34.0); Mean Corpuscular Volume 90.6 fl (80-94); Mean Platelet Volume 9.7 fL (7.4-10.4); Monocytes # 0.5 10^3/uL (0.2-0.9); Monocytes % 5.4 %; Neutrophils # 7.45 10^3/uL (1.8-7.7); Neutrophils % 90.1 %; Nucleated Red Blood Cells % 0 %; Platelet Count 136 10^3/cmm (130-400); Red Cell Distribution Width 15.1 % (12.1-15.1); White Blood Count 8.3 10^3/uL (4.0-10.0)
[2021-09-07 16:37] LABS: Troponin(5th) Baseline 246 ng/L (0-15)
[2021-09-07 16:44] LABS: Alanine Aminotransferase 6 U/L (0-41); Albumin Level 4.1 g/dL (3.5-5.2); Alkaline Phosphatase 89 IU/L (40-130); Anion Gap 21.1 (5-19); Aspartate Amino Transferase 10 U/L (0-40); Blood Urea Nitrogen 14 mg/dL (6-20); Calcium 8.8 mg/dL (8.5-10.5); Carbon Dioxide 27 mmol/L (22-29); Chloride 93 mmol/L (98-107); Glomerular Filtration Rate 12.9 mL/min (90-130); Glucose 101 mg/dL (65-115); Lipase 33 U/L (13-60); Osmolality Calculated 287 mOsm/kg (285-295); Potassium 3.1 mmol/L (3.5-5.1); Sodium 138 mmol/L (136-145); Total Bilirubin 1.2 mg/dL (0.15-1.2); Total Protein 7.1 g/dL (6.6-8.7)
--- NOTE | 2021-09-07 17:19 | PC.PHAR ---
pt states he takes care of his own medications-notes are made in the pharmacy comments-pt states the dr ag the renaplex d and amlodipine-
[2021-09-07] MEDS: lidocaine 1% 5 ML in potassium chloride premix 100 ML 25 ML IV (17:27)
[2021-09-07 17:30] LABS: SARS Covid-2 Antigen Negative (Negative)
[2021-09-07 17:31] LABS: NT Pro B Type Natriuretic Pept > 70000 pg/mL (0-125)
--- NOTE | 2021-09-07 17:38 | P.CONIM_ITS ---
Providers/Reason For Consult Consulting Physician/Specialty*: IONA Landis MD/cardiology Reason for Consult*: Patient with chest pain and elevated troponin T Requesting Physician: Dr Hemphill Primary Care Provider: Michael Eubanks DO History of Present Illness History of Present Illness Marlon Dorantes is a 51 year old male with a history of coronary artery disease, status post multiple PCI's, ischemic cardiomyopathy, end-stage renal disease, on hemodialysis, he is presented to the emergency room today with complaints of chest pain. He was found to have elevated troponin T. Cardiology consult is requested for further cardiac evaluation recommendations. Patient apparently has been his baseline state of health up until yesterday morning when he started having chest pain. He was having chest pain intermittently throughout the day. Towards the evening the pain got worse and became 10/10 in intensity. He was trying not to come to the hospital. He did not even tell his about this. He put himself on of some oxygen. It gave him some relief of the pain. However throughout the night, he was having pain intermittently. This morning as he woke up, he still had chest discomfort. He came to the dialysis clinic today for the scheduled dialysis. During the dialysis, the pain got little worse. However he could finish the dialysis. He was given 3 sublingual nitro in the dialysis clinic. He was brought to the emergency room, for further evaluation and management. At the time of my examination, patient is complaining of some chest discomfort. Most of the pain is gone. He describes the pain as mid substernal, pressure-like in nature, rating to the left shoulder and also the left arm associated with some shortness of breath, nausea and sweating. He was found to be somewhat pale by the nurses at the dialysis clinic and also by his . According the patient, he was doing okay after his last PCI in June of this year. He had a cardiac cauterization when he presented with more concerning symptoms at that time. He had a features of non-ST elevation myocardial infarction. Cardiac elevation revealed a high-grade in-stent stenosis in the LAD. He had a moderately severe disease in the intermedius artery. Mild to moderate diffuse disease was noted in the other vessels. The other stented segments were patent with no significant stenosis. He underwent PCI of the LAD lesion. Apparently he been doing okay with no recurrence of chest pain apparen tly yesterday. Patient is known to have ischemic cardiomyopathy with ejection fraction of 30 to 35%. He refuses to wear the LifeVest. He is on Entresto. Has been compliant with medications. Review of Systems Narrative: CONSTITUTIONAL: No fever or chills. Has a moment of lethargy and weakness EYES: No blurring of vision or other visual disturbances lately. ENT: No hoarseness of voice, auditory disturbances or sore throat. CARDIOVASCULAR: As mentioned above. RESPIRATORY: No significant cough. GASTROINTESTINAL: Patient was having some rectal bleed recently. GENITOURINARY: End-stage renal disease INTEGUMENTARY: No skin rashes or history of skin cancer. NEURO: No transient ischemic attacks or amaurosis. PSYCHIATRIC: No history of psychosis or major depression. HEMATOLOGIC: Chronic anemia and hemosiderosis. ENDOCRINE: No history of polyuria or polydipsia. MUSCULOSKELETAL: No recent joint pain or swelling. ALLERGY/IMMUNOLOGY: As mentioned above. Meds/Allergies Home Medications and Allergies Home Medications Medication Instructions Recorded Confirmed Last Taken Type aspirin 81 mg tablet,delayed 81 mg PO QAM 10/31/19 09/07/21 09/07/21 History release nitroglycerin 0.4 mg sublingual 0.4 mg SUBLINGUAL Q5M PRN 10/31/19 09/07/21 Unknown History tablet metoprolol tartrate 50 mg tablet 25 mg PO DAILY tab 11/09/19 09/07/21 07/06/21 History promethazine 12.5 mg tablet 12.5 mg PO Q6H PRN 04/29/20 09/07/21 07/01/20 History 12.5 mg lidocaine-prilocaine See Rx Instructions .ROUTE .COMPLEX 05/24/20 09/07/21 07/03/21 History albuterol sulfate 90 mcg/actuation 2 puff INHALATION QID PRN 30 Days 12/25/20 09/07/21 07/06/21 Rx aerosol inhaler #8.5 g fluticasone propionate 50 1 spray INTRANASAL BID PRN ml 03/10/21 09/07/21 Unknown History mcg/actuation nasal spray,suspension pregabalin 75 mg capsule 75 mg PO BID 03/10/21 09/07/21 09/07/21 History azathioprine See Rx Instructions .ROUTE .COMPLEX 05/18/21 09/07/21 09/07/21 History sevelamer HCl See Rx Instructions .ROUTE .COMPLEX 05/18/21 09/07/21 05/17/21 History duloxetine 20 mg PO QAM 07/06/21 09/07/21 09/07/21 History prednisone 10 mg PO QAM 07/06/21 09/07/21 09/07/21 History atorvastatin 40 mg PO BEDTIME #90 tab 07/10/21 09/07/21 Unknown Rx sacubitril-valsartan [Entresto] 1 tab PO BID #90 tab 07/10/21 09/07/21 09/07/21 10:00 Rx clopidogrel 75 mg PO BEDTIME 09/07/21 09/07/21 09/06/21 History isosorbide mononitrate 30 mg PO BEDTIME 09/07/21 09/07/21 09/06/21 History oxycodone 5 mg PO BID PRN 09/07/21 09/07/21 Unknown History pantoprazole 40 mg PO QAM 09/07/21 09/07/21 09/07/21 History Allergies Allergy/AdvReac Type Severity Reaction Status Date / Time azithromycin Allergy ADR-Chest Verified 09/07/21 17:17 Pain carvedilol AdvReac ADR-Dizzine Verified 09/07/21 17:17 ss Current Medications Current Medications Generic Name Dose Route Start Last Admin Trade Name Freq PRN Reason Stop Dose Admin Fentanyl 50 mcg 09/07/21 15:58 09/07/21 16:10 Fentanyl 50 Mcg/Ml Inj 2ml IVP 50 mcg Q30M PRN Administration pain Lidocaine HCl 5 ml/ Potassium 105 mls @ 25 mls/hr 09/07/21 17:08 09/07/21 17:27 Chloride IV 09/07/21 21:19 25 mls/hr ONCE ONE Administration PFSH Acute PFSH: Medical History Atherosclerotic heart disease of [place] coronary artery without angina pectoris Benign essential hypertension Cardiomyopathy CHF NYHA class III (symptoms with mildly strenuous activities) COPD (chronic obstructive pulmonary disease) Diabetes mellitus DVT (deep venous thrombosis) Dyslipidemia ESRD (end stage renal disease) Fistula Left Wrist Headache Hemochromatosis Hemoptysis Hemoptysis 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 Mixed hyperlipidemia Nicotine dependence, cigarettes, uncomplicated Non-ST elevation (NSTEMI) myocardial infarction Pleural effusion Pneumonia Pulmonary hypertension Right-sided chest pain Sepsis Surgical History H/O elbow surgery H/O hand surgery H/O neck surgery History of back surgery History of intravascular stent placement History of thoracotomy Family History Grandmother , In her 50's Myocardial infarction Father Diabetes Mother Diabetes Social History Smoking and tobacco status: former smoker Quit status (tobacco): has quit using tobacco Year quit tobacco: 1999 - 2PPD x 20 Years Second hand smoke exposure: No Alcohol intake: current Alcohol intake frequency: holidays/special occasions only Lives independently: Yes Household members: spouse Marital status: Current occupational status: disabled History of recent travel: No Current gender identity: Male Vitals/I&O/Wt Last Vital Signs Temp 98.3 F 09/07/21 15:42 Pulse 84 09/07/21 15:42 Resp 16 09/07/21 16:20 BP 167/98 09/07/21 16:20 Pulse Ox 99 09/07/21 16:20 Weight last 48 hrs Weight 180 lb Physical Exam Narrative: EXAM NARRATIVE: GENERAL: The patient is alert and oriented times three. Not in any acute distress. HEENT: Minimal pallor. No, icterus or lymphadenopathy.Oral cavity: There are no mucous membrane lesions. NECK: Trachea appears to be central. No masses noted. No JVD or thyromegaly appreciated. RESPIRATORY: Chest is symmetrical. No intercostals muscle retraction or any accessory muscle activation. There is no chest wall tenderness. Breath sounds are heard bilaterally. No rales or rhonchi heard. No evidence of any consolidation. BREASTS: Deferred. HEART: The heart sounds are normal. No S3 or S4. Short systolic murmur the left sternal border and also at the base of the heart. No diastolic murmurs.. No pericardial rub ABDOMEN: No vessel pulsations or distention. No tenderness. No organomegaly appreciated. Bowel sounds are normally heard. : Deferred. RECTAL: Deferred. LYMPHATIC: No lymphadenopathy noted in the neck or groin. EXTREMITIES: Edema with no cyanosis. Peripheral pulses are palpable but weak bilaterally. MUSCULOSKELETAL: No acute joint deformities or swelling SKIN: There are no significant rashes or ecchymosis NEUROPSYCHIATRIC: The patient is alert and oriented x3. Appears to be in a good mood. No tremors or rigidity noted. Data Labs: Other Labs: Laboratory Last Values WBC 8.3 10^3/uL (4.0- 10.0) 09/07/21 15:38 RBC 3.40 10^6/uL (4.1 -5.3) L 09/07/21 15:38 Hgb 9.9 g/dL (11.7-16 .6) L 09/07/21 15:38 Hct 30.8 % (42.0-52.0 ) L 09/07/21 15:38 MCV 90.6 fl (80-94) 09/07/21 15:38 MCH 29.1 pg (28.0-34. 0) 09/07/21 15:38 MCHC 32.1 g/dL (30.0-3 6.0) 09/07/21 15:38 RDW 15.1 % (12.1-15.1 ) 09/07/21 15:38 Plt Count 136 10^3/cmm (130 -400) 09/07/21 15:38 MPV 9.7 fL (7.4-10.4) 09/07/21 15:38 Neut % (Auto) 90.1 % 09/07/21 15:38 Lymph % (Auto) 3.3 % 09/07/21 15:38 [place] % (Auto) 5.4 % 09/07/21 15:38 Eos % (Auto) 0.1 % 09/07/21 15:38 Baso % (Auto) 0.6 % 09/07/21 15:38 Neut # (Auto) 7.45 10^3/uL (1.8 -7.7) 09/07/21 15:38 Lymph # (Auto) 0.3 10^3/uL (0.8- 4.8) L 09/07/21 15:38 [place] # (Auto) 0.5 10^3/uL (0.2- 0.9) 09/07/21 15:38 Eos # (Auto) 0.0 10^3/uL (0.0- 0.8) 09/07/21 15:38 Baso # (Auto) 0.1 10^3/uL (0.0- 0.1) 09/07/21 15:38 Nucleated RBC % (a uto) 0 % 09/07/21 15:38 Nucleated RBCs # 0.0 /100WBC 09/07/21 15:38 Sodium 138 mmol/L (136-1 45) 09/07/21 15:38 Potassium 3.1 mmol/L (3.5-5 .1) L 09/07/21 15:38 Chloride 93 mmol/L (98-107 ) L 09/07/21 15:38 Carbon Dioxide 27 mmol/L (22-29) 09/07/21 15:38 Anion Gap 21.1 (5-19) H 09/07/21 15:38 BUN 14 mg/dL (6-20) 09/07/21 15:38 Creatinine 4.8 mg/dL (0.7-1. 2) H 09/07/21 15:38 GFR Calculation 12.9 mL/min (90-1 30) L 09/07/21 15:38 Glucose 101 mg/dL (65-115 ) 09/07/21 15:38 Calculated Osmolal ity 287 mOsm/kg (285- 295) 09/07/21 15:38 Calcium 8.8 mg/dL (8.5-10 .5) 09/07/21 15:38 Total Bilirubin 1.2 mg/dL (0.15-1 .2) 09/07/21 15:38 AST 10 U/L (0-40) 09/07/21 15:38 ALT 6 U/L (0-41) 09/07/21 15:38 Alkaline Phosphata se 89 IU/L (40-130) 09/07/21 15:38 Troponin T Baselin e 246 ng/L (0-15) H* 09/07/21 15:38 NT-Pro-B Natriuret Pep > 18177 pg/mL (0- 125) H 09/07/21 15:38 Total Protein 7.1 g/dL (6.6-8.7 ) 09/07/21 15:38 Albumin 4.1 g/dL (3.5-5.2 ) 09/07/21 15:38 Globulin 3.0 g/dL (1.3-4.6 ) 09/07/21 15:38 Lipase 33 U/L (13-60) 09/07/21 15:38 SARS-CoV-2 Ag (Rap id) Negative (Negati ve) 09/07/21 16:16 Imaging^: Cardiac catheterization: My impression: Done on 07/08/2021 2. No significant lesions of the left main artery. The stented segment of the mid LAD was found to have a high-grade lesion around 90% in-stent stenosis. The left circumflex artery has moderate disease proximally. Intermedius artery was found to have moderately severe lesion proximally, appears to be a napkin ring type lesion. The right coronary artery was found to have mild to moderate diffuse disease. Elevated LVEDP of 22 mmHg. EKG^: EKG 1: My Interpretation: The EKG revealed normal sinus rhythm with a rate of [address] changes. Left ventricular hypertrophy. Possible left atrial enlargement A&P Assessment and plan (1) Non-ST elevation (NSTEMI) myocardial infarction: The patient has a clinical features of non-ST elevation myocardial infarction/unstable angina. Hemodynamically seems to be stable. His blood pressure is a stage II. Possibility of progression of disease in the [place] vessels versus restenosis are considerations. Serial cardiac enzymes are be appropriate. We also may go ahead and do a limited 2D echocardiogram. Patient may be started on IV heparin. Will keep on the current medications for the time being. Status: Acute (2) Atherosclerotic heart disease of [place] coronary artery with other forms of angina pectoris: May continue on the current medications. We may consider doing a cardiac colorization, to further evaluate patient her coronary status and decide on further management. He will be closely watched on telemetry. Status: Acute (3) Anemia: Patient is being followed by Dr. Colon. He has hemochromatosis. Whether there is any cardiac involvement is not known at this point. We may consider doing a cardiac MRI to further evaluate. That may not be an emergency at this point. Status: Acute Qualifiers: Anemia type: unspecified type Qualified Code(s): D64.9 - Anemia, unspecified (4) Hemochromatosis: As mentioned above. Patient has hemosiderosis and rectal bleed. Continue believing Status: Acute Qualifiers: Hemochromatosis type: unspecified Qualified Code(s): E83.119 - Hemochromatosis, unspecified (5) Ischemic cardiomyopathy: Since the patient has no evidence of any cardiac decompensation, is advised to continue on the current measures. The current medications were reviewed. Status: Acute (6) Mixed hyperlipidemia: Continue on the current management. Follow-up evaluation as scheduled. Status: Acute Additional A&P Information Patient with clinical progress, further recommendations will be made. Patient may benefit from a cardiac catheterization, to reevaluate the coronary arteries. Based on the angiogram findings, further recommendations will be made. 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
--- NOTE | 2021-09-07 17:58 | ECG_ITS ---
[facility] Test Date: 2021-09-07 Pat Name: Marlon Dorantes Department: Room: Gender: Male Assistant Broker: : 1970 Requested By: Bear Hemphill Order Number: [id number] Tiffani MD: Sun Valle M.D. Measurements Intervals [place] Rate: 83 P: 44 MO: 140 QRS: 9 QRSD: 106 T: 164 QT: 428 QTc: 504 Interpretive Statements SINUS RHYTHM POSSIBLE LEFT ATRIAL ENLARGEMENT [-0.1mV P-WAVE IN V1/V2] LEFT VENTRICULAR HYPERTROPHY AND ST-T CHANGE [VOLTAGE CRITERIA PLUS ST/T ABNORMALITY] Compared to ECG 09/07/2021 15:59:39 No significant changes Electronically Signed On 09-08-2021 12:57:43 NURSING MANAGER by Sun Valle M.D. [id number]
[2021-09-07 18:39] LABS: Troponin 5 2HR 213.9 ng/L (0-15); Troponin 5 2HR Delta -32.1 ABS# (0-10)
[2021-09-07 19:26] LABS: Magnesium 1.9 mg/dL (1.7-2.3)
--- NOTE | 2021-09-07 21:58 | ECG_ITS ---
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 Measurements Intervals [place] Rate: 88 P: 41 PA: 147 QRS: 4 QRSD: 107 T: 74 QT: 418 QTc: 506 Interpretive Statements SINUS RHYTHM POSSIBLE LEFT ATRIAL ENLARGEMENT [-0.1mV P WAVE IN V1/V2] LEFT VENTRICULAR HYPERTROPHY AND ST-T CHANGE [VOLTAGE CRITERIA PLUS ST/T ABNORMALITY] Compared to ECG 09/07/2021 17:36:26 No significant changes Electronically Signed On 09-08-2021 22:03:39 REGIONAL TRANSFER LIAISON by Isauro Landis M.D. [id number]
[2021-09-07 22:14] LABS: Troponin 5 6HR 223.5 ng/L (0-15); Troponin 5 6HR Delta -22.5 ng/L (0-12)
[2021-09-07] MEDS: heparin 5,000 unit/mL INJ 1 mL IV (22:18)
[2021-09-07] MEDS: heparin drip 25,000 UNIT/500 ML PREMIX 22.86 UNIT IV (22:19)
--- NOTE | 2021-09-07 23:07 | PM.HP ---
Providers/Chief Complaint Admitting Physician: Sailaja Carvajal MD Primary Care Provider: Michael Eubanks DO Chief Complaint: CP History of Present Illness Marlon Dorantes is a 51 year old male with PMH as below, significantly CAD, Idiopathic pulmonary hemosiderosis, hemochromatosis in his usual state of health until yesterday afternoon when he developed chest pain, left sided, felt as burning sensation, similar to his [place] in [place] past, states symptoms were partially relived with placing prn oxygen which he uses at home intermittently up to 3lpm. Today while undergoing HD, burning sensation returned again which georgie him to ER, he had been given 3 S/L nitro in dialysis and then again by EMS, pain is currently resolved. EKG without acute ST-T wave changes, trop baseline 240s, trending down to 213 at 2 hrs. cardiology has been consulted, patient currently on heparin drip in view of NSTEMI. Vaccinated for COVID with 2 dose mRNA series. No URI symptoms. Review of Systems General: Reports: 10 or more systems reviewed and unremarkable except in HPI and below Const: Denies: fever(s), chills or body aches Eyes: Denies: change in vision, blurry vision or photophobia ENMT: Denies: throat pain, enlarged tonsils, odynophagia or nasal congestion Card: Reports: chest pain; Denies: palpitations, irregular heart rhythm, edema, swelling of feet/ankles, lightheadedness, pre-syncope, dyspnea on exertion or orthopnea Resp: Denies: dyspnea, productive cough, non-productive cough, wheezing, stridor, pain on inspiration, change in phlegm color, hemoptysis or chest congestion GI: Denies: abdominal pain, nausea, vomiting, hematemesis, coffee ground emesis, dysphagia, heartburn, diarrhea, constipation, GI cramping, change in stool character, hematochezia or melena : Denies: flank pain, dysuria, urinary frequency, urinary urgency, urinary hesitancy or hematuria Musc: Denies: neck pain, back pain, extremity pain, joint swelling, joint warmth or deformity Neuro: Denies: headache(s), numbness in extremities, weakness in extremities, sensory changes, difficulty walking, frequent falls, dizziness, vertigo, behavioral changes, Slurred speech present or seizure-like activity Psych: Denies: anxiety, depression, suicidal ideation or homicidal ideation Endo: Denies: polyuria, polydipsia, tired all the time, cold intolerance or hot flashes Pranav/Lymph: Denies: easy bruising or easy bleeding Medications/Allergies Home Medications Medication Instructions Recorded Confirmed Last Taken Type aspirin 81 mg tablet,delayed 81 mg PO QAM 10/31/19 09/07/21 09/07/21 History release nitroglycerin 0.4 mg sublingual 0.4 mg SUBLINGUAL Q5M PRN 10/31/19 09/07/21 Unknown History tablet metoprolol tartrate 50 mg tablet 25 mg PO DAILY tab 11/09/19 09/07/21 07/06/21 History promethazine 12.5 mg tablet 12.5 mg PO Q6H PRN 04/29/20 09/07/21 07/01/20 History 12.5 mg lidocaine-prilocaine See Rx Instructions .ROUTE .COMPLEX 05/24/20 09/07/21 07/03/21 History albuterol sulfate 90 mcg/actuation 2 puff INHALATION QID PRN 30 Days 12/25/20 09/07/21 07/06/21 Rx aerosol inhaler #8.5 g fluticasone propionate 50 1 spray INTRANASAL BID PRN ml 03/10/21 09/07/21 Unknown History mcg/actuation nasal spray,suspension pregabalin 75 mg capsule 75 mg PO BID 03/10/21 09/07/21 09/07/21 History azathioprine See Rx Instructions .ROUTE .COMPLEX 05/18/21 09/07/21 09/07/21 History sevelamer HCl See Rx Instructions .ROUTE .COMPLEX 05/18/21 09/07/21 05/17/21 History duloxetine 20 mg PO QAM 07/06/21 09/07/21 09/07/21 History prednisone 10 mg PO QAM 07/06/21 09/07/21 09/07/21 History atorvastatin 40 mg PO BEDTIME #90 tab 07/10/21 09/07/21 Unknown Rx sacubitril-valsartan [Entresto] 1 tab PO BID #90 tab 07/10/21 09/07/21 09/07/21 10:00 Rx clopidogrel 75 mg PO BEDTIME 09/07/21 09/07/21 09/06/21 History isosorbide mononitrate 30 mg PO BEDTIME 09/07/21 09/07/21 09/06/21 History oxycodone 5 mg PO BID PRN 09/07/21 09/07/21 Unknown History pantoprazole 40 mg PO QAM 09/07/21 09/07/21 09/07/21 History Allergies Allergy/AdvReac Type Severity Reaction Status Date / Time azithromycin Allergy ADR-Chest Verified 09/07/21 17:17 Pain carvedilol AdvReac ADR-Dizzine Verified 09/07/21 17:17 ss PFSH Acute PFSH: Medical History Atherosclerotic heart disease of [place] coronary artery without angina pectoris Benign essential hypertension Cardiomyopathy CHF NYHA class III (symptoms with mildly strenuous activities) COPD (chronic obstructive pulmonary disease) Diabetes mellitus DVT (deep venous thrombosis) Dyslipidemia ESRD (end stage renal disease) Fistula Left Wrist Headache Hemochromatosis Hemoptysis Hemoptysis 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 Mixed hyperlipidemia Nicotine dependence, cigarettes, uncomplicated Non-ST elevation (NSTEMI) myocardial infarction Pleural effusion Pneumonia Pulmonary hypertension Right-sided chest pain Sepsis Surgical History H/O elbow surgery H/O hand surgery H/O neck surgery History of back surgery History of intravascular stent placement History of thoracotomy Family History Grandmother , In her 50's Myocardial infarction Father Diabetes Mother Diabetes Social History Smoking and tobacco status: former smoker Quit status (tobacco): has quit using tobacco Year quit tobacco: 1999 - 2PPD x 20 Years Second hand smoke exposure: No Alcohol intake: current Alcohol intake frequency: holidays/special occasions only Lives independently: Yes Household members: spouse Marital status: Current occupational status: disabled History of recent travel: No Current gender identity: Male Vitals/I&O/Wt Last Vital Signs Temp 98.3 F 09/07/21 15:42 Pulse 90 09/07/21 22:03 Resp 22 H 09/07/21 22:03 BP 175/110 09/07/21 22:03 Pulse Ox 96 09/07/21 22:03 09/07/21 09/07/21 09/08/21 14:59 22:59 06:59 Intake Total 105 / 105 Balance 105 / 105 Weight last 48 hrs Weight 81.647 kg Physical Exam Narrative: EXAM NARRATIVE: General: No acute distress, AO x3 HEENT: PERRLA, pupils bilaterally equal and reactive, pallors not present Chest: Normal vesicular breath sounds, no added sounds, equal good air entry bilaterally CVS: S1-S2 regular, no murmurs, no tachycardia, no gallops, no rubs Abdomen: Soft, nontender, no organomegaly, bowel sounds present Neuro: No focal deficits, no facial deformity, AO x3, power 5/5 in all limbs Extremities: no edema or cyanosis Data : 09/07/21 15:38 09/07/21 15:38 A&P Assessment and plan (1) Non-ST elevation (NSTEMI) myocardial infarction: Elevated troponin with chest pain concerning for NSTEMI Admit to CSU Started on heparin infusion, to continue Continue ASA, Plavix, statin , Entresto Echocardiogram appreciate cardiology recommendations NPO P/MN in case needs cardiac cath depending on troponin and EKG trend Status: Acute (2) Ischemic cardiomyopathy: Status: Acute Additional A&P Information CKD on MHD: nephrology sonsult in am to keep HD schedule MWF Hemochromatosis: followed outpatient by oncology Pulmonary hemosiderosis: Duoneb inhalation q6h srikanth, titrate 02 to keep sat >90% Attestations Medical Necessity Statement*: anticipate >2midnight admission in view of NSTEMI Coding Level of Care Code Acute 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
[2021-09-08] VITALS (31 sets, daily range): BP systolic 118–176; BP diastolic 63–110; PULSE 64–97; RESP 12–29; TEMP 36.2–36.7; O2SAT 92–99; BMI 25.8
[2021-09-08] MEDS: oxyCODONE 5 mg IR Tab/Cap PO (01:20)
[2021-09-08 03:13] LABS: Alanine Aminotransferase 7 U/L (0-41); Albumin Level 3.9 g/dL (3.5-5.2); Alkaline Phosphatase 91 IU/L (40-130); Anion Gap 21.5 (5-19); Aspartate Amino Transferase 13 U/L (0-40); Blood Urea Nitrogen 21 mg/dL (6-20); Calcium 8.6 mg/dL (8.5-10.5); Carbon Dioxide 25 mmol/L (22-29); Chloride 99 mmol/L (98-107); Globulin 2.8 g/dL (1.3-4.6); Glomerular Filtration Rate 8.2 mL/min (90-130); Glucose 128 mg/dL (65-115); Osmolality Calculated 297 mOsm/kg (285-295); Potassium 4.5 mmol/L (3.5-5.1); Sodium 141 mmol/L (136-145); Total Bilirubin 1.5 mg/dL (0.15-1.2); Total Protein 6.7 g/dL (6.6-8.7)
[2021-09-08] MEDS: ipratropium-albuterol 3 mL Neb INHALATION ×2 (03:52→08:14)
[2021-09-08] MEDS: predniSONE 10 mg Tablet PO (05:46)
[2021-09-08] MEDS: duloxetine 20 mg Capsule PO (05:46)
[2021-09-08] MEDS: aspirin 81 mg EC Tablet PO (05:46)
[2021-09-08] MEDS: ondansetron 2 mg/ML SDV 2 mL 4 MG IVP (06:19)
--- NOTE | 2021-09-08 06:34 | PC.NURSE ---
Patient bp was 179/110. Was nauseated at the time so gave zofran and re-evaluated bp and was still the same. Contacted hospitalist and was told to give one time dose of imdur that is on his home medications.
[2021-09-08] MEDS: isosorbide mononitrate ER 30 mg Tablet PO ×2 (07:11→21:05)
--- NOTE | 2021-09-08 07:22 | PC.NURSE ---
Frequent safety and comfort rounds continue. Orders and/or nursing care completed as indicated. Patient monitored for response to intervention and treatment nausea and htn. Education provided includes medication for nausea and htn. Patient and/or eligibility services representative verbalizes understanding.. Will continue to monitor.
[2021-09-08] MEDS: sacubitril/valsartan 24-26 mg Tablet 1 EACH PO (08:51)
[2021-09-08] MEDS: metoprolol tartrate 25 mg Tablet PO (08:52)
[2021-09-08] MEDS: pregabalin 75 mg Capsule PO (08:52)
[2021-09-08] MEDS: amlodipine 5 mg Tablet PO (09:37)
[2021-09-08] MEDS: nitroglycerin drip 50 MG/250 ML PREMIX 6 MG IV (09:41)
[2021-09-08] MEDS: pantoprazole DR 40 mg Tablet PO (09:42)
--- NOTE | 2021-09-08 09:51 | XACV_ITS ---
Exam Room: [facility] Ht: 178 cm Wt: 82 kg BSA: 2.02 m2 Gender: Male : 1970 Any Known Allergies: Other Exam Priority: Routine Procedure(s): Procedure Description: Diagnostic procedure Procedure Description: PCI procedure Procedure Description: Left Heart Catheterization Procedure Description: Drug Eluting Coronary Stent Procedure Description: PTCA Procedure Description: Miscellaneous Procedure Description: ACT Procedure Description: Coronary Angiography Boby BOOTHE; Diagnostic Cath Status: Urgent Diagnostic Findings * Coronary angiography shows right dominance. * The left main is a medium caliber vessel with no significant stenotic lesions. Minimal intimal irregularities are noted in the distal segment of the artery. * The left circumflex artery is a medium caliber vessel found to have moderate diffuse irregular stenosis in the proximal segment. The lesions were ranging from 50 to 60%. Mid and distal segment of the artery was found to have mild to moderate diffuse disease. No significant stenotic lesions. * The intermedius artery appears to be a high obtuse marginal branch. There is a 60 to 70% segmental stenosis in the proximal segment of the artery. Mild diffuse intimal irregularities are noted in the distal vessel. * The left anterior descending artery is a medium caliber vessel which appears to gives of a high diagonal branch which was found to have mild to moderate diffuse disease proximally. Right after this, the LAD was found to have at least 70% ostial narrowing. The mid LAD was found to have a long stented segment which was found to be widely patent. The mid and distal artery was found to have mild diffuse intimal irregularities. No significant stenotic lesions were noted.. * The right coronary artery is a medium caliber dominant vessel with mild to moderate diffuse disease involving the entire segment of the artery. The PDA and the PLV branches also were found to have mild to moderate diffuse disease. No significant stenotic lesions were noted.. PCI Status: Urgent PCI Indication: NSTE - ACS Interventional Findings * Procedure details: We engaged left main artery with XB 3.5 guide catheter. IV heparin was administered to maintain an ACT above 250 seconds. After zeroing and normalization, IFR pressure wire was advanced into the ramus artery. IFR value of 0.89 was obtained. We then advanced a IFR wire into the LAD. It showed an IFR value of 0.66. We then decided to proceed with PCI of proximal LAD. A 0.014 run-through guidewire was used to cross the stenosis and was placed in distal LAD. 2.5 x 12 mm semicompliant balloon was used to predilate the stenosis in the LAD. This was followed by placement of 3.0 x 15 mm resolute Jose drug-eluting stent. We postdilated the proximal part of stent with 3.0 x 8 mm NC balloon. At this time final angiogram was performed that showed excellent stent expansion, BRENDA-3 flow and no residual stenosis. Guidewire and guide catheter were removed. Patient left the Documentation Designer in a stable condition. Conclusions 1. This is a 51-year-old white male with history of coronary disease, cardiomyopathy, congestive heart failure, end-stage renal disease, presented with unstable anginal symptoms. EKG was found to have diffuse nonspecific ST-T changes. He also was found to have a persistently elevated troponin T. In view of his unstable anginal symptoms, in order to further evaluate his coronary status, cardiac catheterization was recommended. Patient underwent left heart catheterization with left and right coronary angiogram today. The findings are as follows. 2. Possibly high-grade lesion in the ostium of the left anterior descending artery. Moderate to severe segmental stenosis in the proximal segment of the intermedius artery. Patent stented segment of the mid LAD. Mild to moderate diffuse disease in the other vessels. LVEDP of 24 mmHg. Based on this angiogram findings, diastolic be appropriate to do IFR of the proximal LAD and the intermedius artery lesions. The angiogram data was reviewed and discussed with Dr. Gallegos. Dr. Gallegos agreed with this plan and took over further management of this patient at this point. 3. Ischemic IFR readings of 0.89 in the ramus intermedius artery and 0.66 in LAD and noted. 4. Patient underwent successful revascularization of proximal LAD with ALEXYS x1. Plan for staged revascularization of ramus intermedius artery because of contrast load and he was very uncomfortable during the procedure. He may require anesthesia support. Recommendations * Aspirin and Plavix for at least 1 year. * Transfer back to [facility]. * Plan for hemodialysis today or tomorrow. * High intensity * statin therapy. * We will plan on staged revascularization of ramus artery as outpatient. Interventional RX Recommendation: PCI w/o planned CABG Diagnostic RX Recommendation: other cardiac therapy w/o CABG/PCI Anticoagulation: Heparin LV EDP: 24 mmHg Left Ventriculography Findings: * The ventriculogram was not performed. The LVEDP was found to be 24 mmHg. Pressures Phase:Rest AO : 124 / 94 ( 108 ) @ 3:07:00 PM 142 / 88 ( 110 ) @ 3:17:00 PM 145 / 84 ( 110 ) @ 3:17:00 PM 126 / 89 ( 106 ) @ 3:31:00 PM 152 / 63 ( 102 ) @ 3:37:00 PM 131 / 94 ( 112 ) @ 3:51:00 PM LV : 151 / 8 / 24 @ 3:17:00 PM 149 / 8 / 22 @ 3:17:00 PM Valves Phase:DefaultPhase AV : 7.0 @ 6:21:56 PM 7.0 @ 6:21:56 PM AV Mean Gradient: 13.0 @ 6:21:56 PM Clinical Evaluation EBL: 5mL-10mL Procedural Details Procedure Consent Obtained. Admit Source: In Patient. Pre-Procedure Time Out. Identified patient by full name and date of as verbalized by the patient/guarantor. Does the consent match the physician's order: Yes. Accurate & Complete Informed Consent: Yes. Inpatient/Outpatient History & Physical on Chart: Yes. If H&P is completed, is and addenduem needed: N/A; If yes, is the addendum complete: N/A. Visualize and Verify Site with Patient/Guarantor: N/A. Relevant Radiology Images available: N/A. Pre-op teaching completed and patient verbalized understanding. The risks, benefits, and alternatives of sedation and/or procedure were discussed by physician. The patient agrees to continue. Procedure started. Physician arrived. [facility] Clinical Fraility Score: 4: Vulnerable. Documentation Designer Indications: Worsening Angina, Unstable Angina. Chest Pain Symptom Assessment: Atypical Angina. Correct patient, site and procedure confirmed by cath team. Current diagnosis: Chest Pain, NSTEMI. PERRLA. Strong, equal hand scalp specialist bilaterally. Lungs clear x 5 lobes. IV Site on Arrival: 18 gauge in the right wrist. IV Fluids: 0.9% NaCl at KVO. 0 mL infused prior to environmental laboratory technician. Pre Procedural Pulses: bilateral dorsalis pedis was Doppled. Pre Procedural Pulses: bilateral posterior tibial was Doppled. Oxygen started at 2liters/min via nasal canula. bilateral groins was prepped with chloroprep then draped in the usual sterile fashion. Baseline sample Acquired. HR: 78 BPM. Physician notified. Physician scrubbed in. Nitro gtt increased to 20mcg/min d/t hypertension. Immediate Pre-Procedure Time Out. Correct Patient: Yes; Correct Procedure: Yes; Correct Site: Yes; Correct Patient Position: Yes; Correct Supplies: Yes; Dried Flammable Prep: N/A; Blood Products Available: N/A;. Lidocaine 1% infiltrated to the right groin. Arterial access obtained. wire unable to advance. wire and needle removed. Arterial access obtained. Glidewire advanced through access needle. Glidewire unable to advance. Wire and needle removed. Manual pressure held. Arterial access obtained. A 5 puerto rican JL4 catheter in over wire. ACT drawn. Results 112 seconds. Therapeutic limits - pre-heparin administration 90-150 seconds and monitoring heparin during a vascular procedure >250 seconds. Multiple views taken of left coronary artery. Catheter out. A 5 puerto rican JR4 catheter in over wire. Multiple views taken of right coronary artery. Dr Gallegos notified to look at images. Catheter out. A 5 puerto rican Angled Pig catheter in over wire. EDP Sample taken: LV 151/8,24; HR: 70 BPM; SpO2: 92%. Pullback taken: LV 149/8,22; AO 142/88(110); Mean: 13mmHg, Peak to Peak: 7mmHg, SEP: 19sec/min; HR: 81 BPM; SpO2: 93%. Catheter out. Dr. Gallegos scrubbed in to perform intervention. Sheath upsized to a 6 Fr. Patient's family updated. 6 puerto rican XB 3.5 guide catheter was inserted over the wire. FFR/IFR Omniwire pressure guidewire was advanced through the guide catheter to lesion in the Ramus. Fractional flow reserve measurements obtained. IFR result of 0.89 recorded in Ramus. FFR/IFR Omniwire pressure guidewire was advanced through the guide catheter to lesion in the prox LAD. Fractional flow reserve measurements obtained. IFR result of 0.66 recorded in Prox LAD. Runthrough guidewire was advanced through the guide catheter to lesion in the prox LAD. Unable to cross lesion. Ruthrough wire removed and new Runthrough wire attempted to cross lesion. IFR wire redirected to the Diagonal branch. IFR wire removed. Inflation number : 1 A AB TREK 2.50X12 RX BALLOON was prepped and advanced across the Prox LAD , then inflated to 12 CANDY for 0:25 seconds. Inflation number: 2 The AB TREK 2.50X12 RX BALLOON was reinflated across the Prox LAD, to 12 CANDY for 0:25 seconds. Balloon out. Balloon inserted to lesion in the prox LAD. Stent inserted to lesion in the prox LAD. Intact stent removed d/t unable to cross lesion. Inflation number: 3 The AB TREK 2.50X12 RX BALLOON was reinflated across the Prox LAD, to 12 CANDY for 0:20 seconds. Inflation number: 4 The AB TREK 2.50X12 RX BALLOON was reinflated across the Prox LAD, to 14 CANDY for 0:23 seconds. Balloon inserted to lesion in the prox LAD. Balloon out. Stent inserted to lesion in the prox LAD. Unable to cross lesion. Intact stent removed. Guideliner inserted. Stent inserted to lesion in the prox LAD. Guideliner removed. Inflation Number : 5 A SARI Alberto JOSE 3.0X15 ALEXYS -Lot Number# [id number] Exp 06/26/2024 was prepped and advanced across the Prox LAD. The stent was deployed at 14 CANDY for 0:25 seconds. Stent balloon out over wire. Results checked. Inflation number : 6 A MDT NC EUPHORA RX [id number] BALLOON was prepped and advanced across the Prox LAD , then inflated to 16 CANDY for 0:17 seconds. Inflation number: 7 The MDT NC EUPHORA RX [id number] BALLOON was reinflated across the Prox LAD, to 14 CANDY for 0:17 seconds. Balloon inserted to lesion in the prox LAD. Balloon out. Results checked. Wire out. Guide catheter out. A Suture was successful obtaining hemostatsis at the Right Femoral artery insertion site. Post-op diagnosis: Severe Prox LAD stenosis, Severe Prox Ramus stenosis. Post Procedure: Pulses reassessed and unchanged. PERRLA. Strong, equal hand scalp specialist bilaterally. No VTE prophylaxis required. Medication's Wasted: Lidocaine 1% = 4 mL. Total IV fluids: 60 mL. PCI Indication: NSTE. Complications: none. Estimated blood loss: 5mL-10mL. Procedure completed. Patient transferred by bed to 1st floor. Vital chart was stopped. Access Site Site: Right Femoral artery Sheath Size: 5 Fr Hemostasis Method: Suture Hemostasis Success: Successful Procedure Medications Start: 4:36 PM Stop: 4:36 PM Medication: Fentanyl Amount: 50 mcg Route: I.V. Start: 4:45 PM Stop: 4:45 PM Medication: Versed Amount: 1 mg Route: I.V. Start: 4:49 PM Stop: 4:49 PM Medication: Versed Amount: 1 mg Route: I.V. Start: 4:49 PM Stop: 4:49 PM Medication: Fentanyl Amount: 50 mcg Route: I.V. Start: 5:06 PM Stop: 5:06 PM Medication: Versed Amount: 1 mg Route: I.V. Start: 5:14 PM Stop: 5:14 PM Medication: Versed Amount: 1 mg Route: I.V. Start: 5:14 PM Stop: 5:14 PM Medication: Benadryl Amount: 50 mg Route: I.V. Start: 5:27 PM Stop: 5:27 PM Medication: Heparin Amount: 8000 units Route: I.V. Start: 5:31 PM Stop: 5:31 PM Medication: Solu-Medrol (methylprednisolone) Amount: 125 mg Route: I.V. Start: 5:33 PM Stop: 5:33 PM Medication: Versed Amount: 1 mg Route: I.V. Start: 5:53 PM Stop: 5:53 PM Medication: Heparin Amount: 1000 units Route: I.V. Start: 6:03 PM Stop: 6:03 PM Medication: Fentanyl Amount: 50 mcg Route: I.V. Start: 6:10 PM Stop: 6:10 PM Medication: Nitrogylcerin Amount: 200 mcg Route: I.C. I, the attending physician, have reviewed and verified all procedure medications. Yes, all medications given per verbal order History/Risk Factors Hypertension: No Dyslipidemia: Yes Peripheral Arterial Disease (PAD): No Myocardial Infarction (NM): Yes Obesity: No Renal Disease: Yes Tobacco Use: Former Dialysis: Current Prior Interventions PCI: Yes CABG: No Valve Surgery: No Date of PCI: 07/08/2021 Report Signatures Interventional Workflow Finalized by Vaibhav Gallegos MD on 09/22/2021 06:13 PM Diagnostic Workflow Finalized by Dr Isauro Landis MD [facility] on 09/08/2021 09:44 PM
[2021-09-08 10:17] LABS: Partial Thromboplastin Time 56.9 SECONDS (23.9-36.7)
--- NOTE | 2021-09-08 10:23 | PM.PN ---
Subjective Subjective: Interval history: Plan for angiogram today, patient is complaining chest pain 5/, substernal which she is describing as heaviness, hemodynamically stable, he thinks his pain has eased a little bit since admission Advised him to let us know in case chest pain worsens before angiogram Vitals/I&O/Wt Last Vital Signs Temp 98.1 F 09/08/21 07:23 Pulse 96 09/08/21 08:19 Resp 18 09/08/21 08:19 BP 157/99 09/08/21 07:23 Pulse Ox 93 09/08/21 08:19 09/07/21 09/08/21 09/08/21 22:59 06:59 14:59 Intake Total 105 / 105 118.491 / 223.491 482 / 482 Balance 105 / 105 118.491 / 223.491 482 / 482 Weight last 48 hrs Weight 81.647 kg Weight 81.647 kg Weight 81.647 kg Physical Exam Narrative: EXAM NARRATIVE: Patient was laying supine in his bed Saturating well on room air S1, S2 Abdomen soft No audible stridor or wheezing Nonfocal neuro exam Hematoma PERRLA GCS 15 Data : 09/07/21 15:38 09/08/21 02:38 A&P Assessment and plan (1) Non-ST elevation (NSTEMI) myocardial infarction: Status: Acute (2) CHF NYHA class III (symptoms with mildly strenuous activities): Status: Acute Qualifiers: Congestive heart failure type: combined Congestive heart failure chronicity: acute on chronic Qualified Code(s): I50.43 - Acute on chronic combined systolic (congestive) and diastolic (congestive) heart failure (3) Ischemic cardiomyopathy: Status: Acute (4) Hemochromatosis: Status: Acute Qualifiers: Hemochromatosis type: unspecified Qualified Code(s): E83.119 - Hemochromatosis, unspecified (5) ESRD (end stage renal disease): Status: Acute Additional A&P Information Non-STEMI: Plan for angiogram today Follow-up with 2D echo Chest pain 5/10 Troponin baseline 246 with negative delta BNP 70,000 End-stage renal disease: Consulted nephrology Ischemic cardiomyopathy Right-sided heart failure symptoms positive high BUN seems related to congestive hepatopathy Stable hemoglobin 9.9 Hemochromatosis Patient follows up with oncologist automobile rental agent outpatient Pulmonary hemosiderosis continue breathing regimen for now N.p.o., start renal dialysis diet after the angiogram Full code Currently on IV heparin but will suffice DVT prophylaxis Attestations Medical Necessity Statement*: Continue medical management Time Spent in Patient Care: less than 15 minutes Coding Level of Care Code Acute Senior Net Application Developer for Chg Fwd Diagnoses Non-ST elevation (NSTEMI) myocardial infarction I21.4 CHF NYHA class III (symptoms with mildly strenuous activities) I50.43 Congestive heart failure type: combined Congestive heart failure chronicity: acute on chronic Ischemic cardiomyopathy I25.5 Hemochromatosis E83.119 Hemochromatosis type: unspecified ESRD (end stage renal disease) N18.6
--- NOTE | 2021-09-08 11:07 | P.CONIM_ITS ---
Providers/Reason For Consult Consulting Physician/Specialty*: Nephro Reason for Consult*: Dialysis mgmt Attending Physician: Kei Solitario MD Primary Care Provider: Michael Eubanks DO History of Present Illness History of Present Illness Thank you for consultation, today had the pleasure of reviewing Mr. Dorantes who I have met numerous times during prior hospitalizations. He presents after dialysis yesterday with some shortness of breath and chest pain. The chest pain started 2 weeks ago and has been getting worse. He did get dialysis yesterday for roughly 2 hours, not completing his treatment. On arrival he did have an elevated troponin has been diagnosed with non-STEMI and is pending angiogram this afternoon. Echocardiogram is now performed which demonstrates reduced ejection fraction of 20% which is new since June. No other acute issues, no uremic symptoms, no peripheral anasarca, currently comfortable at rest, does have some dyspnea on exertion. Review of Systems Narrative: ROS - 12 point review of systems completed per HPI and subjective assessment, this includes Constitutional: No weakness, fatigue Respiratory: No SOB on exertion, comfortable at rest CardioVasc: chest pain, no palpitations Gastrointestinal: No nausea, no vomiting Neurological: No seizures, no AMS Derm: No new rashes, lesions or wounds Immunological: No seasonal and no food allergies Meds/Allergies Home Medications and Allergies Home Medications Medication Instructions Recorded Confirmed Last Taken Type aspirin 81 mg tablet,delayed 81 mg PO QAM 10/31/19 09/07/21 09/07/21 History release nitroglycerin 0.4 mg sublingual 0.4 mg SUBLINGUAL Q5M PRN 10/31/19 09/07/21 Unknown History tablet metoprolol tartrate 50 mg tablet 25 mg PO DAILY tab 11/09/19 09/07/21 07/06/21 History promethazine 12.5 mg tablet 12.5 mg PO Q6H PRN 04/29/20 09/07/21 07/01/20 Hist ory 12.5 mg lidocaine-prilocaine See Rx Instructions .ROUTE .COMPLEX 05/24/20 09/07/21 07/03/21 History albuterol sulfate 90 mcg/actuation 2 puff INHALATION QID PRN 30 Days 12/25/20 09/07/21 07/06/21 Rx aerosol inhaler #8.5 g fluticasone propionate 50 1 spray INTRANASAL BID PRN ml 03/10/21 09/07/21 Unknown History mcg/actuation nasal spray,suspension pregabalin 75 mg capsule 75 mg PO BID 03/10/21 09/07/21 09/07/21 History azathioprine See Rx Instructions .ROUTE .COMPLEX 05/18/21 09/07/21 09/07/21 History sevelamer HCl See Rx Instructions .ROUTE .COMPLEX 05/18/21 09/07/21 05/17/21 History duloxetine 20 mg PO QAM 07/06/21 09/07/21 09/07/21 History prednisone 10 mg PO QAM 07/06/21 09/07/21 09/07/21 History atorvastatin 40 mg PO BEDTIME #90 tab 07/10/21 09/07/21 Unknown Rx sacubitril-valsartan [Entresto] 1 tab PO BID #90 tab 07/10/21 09/07/21 09/07/21 10:00 Rx clopidogrel 75 mg PO BEDTIME 09/07/21 09/07/21 09/06/21 History isosorbide mononitrate 30 mg PO BEDTIME 09/07/21 09/07/21 09/06/21 History oxycodone 5 mg PO BID PRN 09/07/21 09/07/21 Unknown History pantoprazole 40 mg PO QAM 09/07/21 09/07/21 09/07/21 History Allergies Allergy/AdvReac Type Severity Reaction Status Date / Time azithromycin Allergy ADR-Chest Verified 09/07/21 17:17 Pain carvedilol AdvReac ADR-Dizzine Verified 09/07/21 17:17 ss Current Medications Current Medications Generic Name Dose Route Start Last Admin Trade Name Freq PRN Reason Stop Dose Admin Albuterol/Ipratropium 3 ml 09/07/21 03:00 09/08/21 08:14 Ipratropium-Albuterol 3 Ml Neb INHALATION 3 ml Q6H.RESPIRATORY JANNET Administration Amlodipine Besylate 5 mg 09/08/21 09:30 09/08/21 09:37 Amlodipine 5 Mg Tablet PO 5 mg DAILY JANNET Administration Aspirin 81 mg 09/08/21 06:00 09/08/21 05:46 Aspirin 81 Mg Ec Tablet PO 81 mg QAM JANNET Administration Azathioprine 0 mg 09/08/21 08:00 11/16/21 08:51 Azathioprine 50 Mg Tablet PO 50 mg 0800,2100 JANNET Administration Duloxetine HCl 20 mg 09/08/21 06:00 09/08/21 05:46 Duloxetine 20 Mg Capsule PO 20 mg QAM JANNET Administration Heparin Sodium (Porcine) 0 unit 09/07/21 17:20 09/07/21 22:18 Heparin 5,000 Unit/Ml Inj 1 Ml IV 4,000 unit PRN PRN Administration Heparin weight-base protocol Protocol Heparin Sodium/Sodium Chloride 25,000 unit in 500 mls @ 0 mls/hr 09/07/21 17:30 09/08/21 03:30 Heparin Drip IV 12.16 unit/kg/hr .Q0M JANNET 19.86 mls/hr Titration Protocol Per Protocol Nitroglycerin/Dextrose 50 mg in 250 mls @ 0 mls/hr 09/08/21 09:30 09/08/21 10:01 Nitroglycerin Drip IV 30 mcg/min .Q0M JANNET 9 mls/hr Titration Protocol Per Protocol Metoprolol Tartrate 25 mg 09/08/21 09:00 09/08/21 08:52 Metoprolol Tartrate 25 Mg Tablet PO 25 mg DAILY JANNET Administration Ondansetron HCl 4 mg 09/07/21 23:17 09/08/21 06:19 Ondansetron 2 Mg/Ml Sdv 2 Ml IVP 4 mg Q8H PRN Administration vomiting, or N/V if npo Oxycodone HCl 5 mg 09/07/21 23:19 09/08/21 01:20 Oxycodone 5 Mg Ir Tab/Cap PO 5 mg BID PRN Administration MODERATE PAIN Pantoprazole Sodium 40 mg 09/08/21 09:00 09/08/21 09:[address] 40 Mg Tablet PO 40 mg DAILY JANNET Administration Prednisone 10 mg 09/08/21 06:00 09/08/21 05:46 Prednisone 10 Mg Tablet PO 10 mg QAM JANNET Administration Pregabalin 75 mg 09/08/21 09:00 09/08/21 08:52 Pregabalin 75 Mg Capsule PO 75 mg BID JANNET Administration Sacubitril/Valsartan 1 each 09/08/21 09:00 09/08/21 08:51 Sacubitril/Valsartan 24-26 Mg Tablet PO 1 each BID JANNET Administration Sevelamer Carbonate 2,400 mg 09/08/21 08:00 09/08/21 08:56 Sevelamer 800 Mg Tablet PO Not Given TIDWM JANNET PFSH Acute PFSH: Medical History Atherosclerotic heart disease of [place] coronary artery without angina pectoris Benign essential hypertension Cardiomyopathy CHF NYHA class III (symptoms with mildly strenuous activities) COPD (chronic obstructive pulmonary disease) Diabetes mellitus DVT (deep venous thrombosis) Dyslipidemia ESRD (end stage renal disease) Fistula Left Wrist Headache Hemochromatosis Hemoptysis Hemoptysis 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 Mixed hyperlipidemia Nicotine dependence, cigarettes, uncomplicated Non-ST elevation (NSTEMI) myocardial infarction Pleural effusion Pneumonia Pulmonary hypertension Right-sided chest pain Sepsis Surgical History H/O elbow surgery H/O hand surgery H/O neck surgery History of back surgery History of intravascular stent placement History of thoracotomy Family History Grandmother , In her 50's Myocardial infarction Father Diabetes Mother Diabetes Social History Smoking and tobacco status: former smoker Quit status (tobacco): has quit using tobacco Year quit tobacco: 1999 - 2PPD x 20 Years Second hand smoke exposure: No Alcohol intake: current Alcohol intake frequency: holidays/special occasions only Lives independently: Yes Household members: spouse Marital status: Current occupational status: disabled History of recent travel: No Current gender identity: Male Vitals/I&O/Wt Last Vital Signs Temp 98.1 F 09/08/21 07:23 Pulse 96 09/08/21 08:19 Resp 18 09/08/21 08:19 BP 157/99 09/08/21 07:23 Pulse Ox 93 09/08/21 08:19 09/07/21 09/08/21 09/08/21 22:59 06:59 14:59 Intake Total 105 / 105 118.491 / 223.491 482 / 482 Balance 105 / 105 118.491 / 223.491 482 / 482 Weight last 48 hrs Weight 81.647 kg Weight 81.647 kg Weight 81.647 kg Physical Exam Narrative: EXAM NARRATIVE: Constitutional: Awake, comfortable HEENT: Wet mucosa, no jvp, non icteric Lungs: Bilaterally clear without discernible wheeze, rales in all lung zones CVS: S1 S2, no murmurs Abdo: Soft, BS ok Ext 4: Minimal edema, peripheral perfusion with no cyanosis Neurological: Grossly non-focal A&P Additional A&P Information 1. ESRD We will plan to do dialysis today after angiogram for volume mgmt 3K, UF 3L, 3hr treatment I will eval in the am Dose medication for GFR less than [address] Landis, recent stent placement, for possible LHC today Currently on ARB therapy, beta-luis carlos 3. Hemodynamics Blood pressure a little high. Mgmt per cardiology, possible nitro gtt 4. Chronic ESRD issues to be addressed as outpatient as part of standard monthly management. Rei Jacob MD Nephrology [phone] Patient seen and examined via telemedicine, with the assistance of the bedside RN > 25 min spent in evaluation and mgmt of patient Coding Level of Care Code Acute Air Support Control Officer for Gabyg Epifanio
[2021-09-08 12:21] LABS: Glucose Point of Care 145 mg/dL (70-110)
--- NOTE | 2021-09-08 16:21 | PM.PN ---
Subjective Subjective: Interval history: Patient has been having episodes of chest pains through the night and this morning. He is on IV nitro at this point. Seems to be fairly stable. Troponin T is elevated with no significant delta. Medications: Reviewed: Yes Medication Review Details: Current Medications Acetaminophen (Acetaminophen 325 Mg Tablet) 650 mg PO Q6H PRN PRN Reason: Mild/Mod Pain Or Temp >/= 101 Albuterol/Ipratropium (Ipratropium-Albuterol 3 Ml Neb) 3 ml INHALATION Q6H.RESPIRATORY JANNET Last Admin: 09/08/21 08:14 Dose: 3 ml Documented by: Amlodipine Besylate (Amlodipine 5 Mg Tablet) 5 mg PO DAILY [facility] [place] Last Admin: 09/08/21 09:37 Dose: 5 mg Documented by: Aspirin (Aspirin 81 Mg Ec Tablet) 81 mg PO QAM [facility] [place] Last Admin: 09/08/21 05:46 Dose: 81 mg Documented by: Atorvastatin Calcium (Atorvastatin 40 Mg Tablet) 40 mg PO BEDTIME JANNET Azathioprine (Azathioprine 50 Mg Tablet) 0 mg PO 0800,2100 [facility] Last Admin: 09/08/21 08:51 Dose: 50 mg Documented by: Clopidogrel Bisulfate (Clopidogrel 75 Mg Tablet) 75 mg PO BEDTIME JANNET Duloxetine HCl (Duloxetine 20 Mg Capsule) 20 mg PO QAM [facility] [place] Last Admin: 09/08/21 05:46 Dose: 20 mg Documented by: Heparin Sodium (Porcine) (Heparin 5,000 Unit/Ml Inj 1 Ml) 0 unit IV PRN PRN; Protocol PRN Reason: Heparin weight-base protocol Last Admin: 09/07/21 22:18 Dose: 4,000 unit Documented by: Heparin Sodium/Sodium Chloride (Heparin Drip) 25,000 unit in 500 mls @ 0 mls/hr IV .Q0M [facility]; Protocol Last Titration: 09/08/21 03:30 Dose: 12.16 unit/kg/hr, 19.86 mls/hr Documented by: Nitroglycerin/Dextrose (Nitroglycerin Drip) 50 mg in 250 mls @ 0 mls/hr IV .Q0M [facility] [place]; Protocol Last Titration: 09/08/21 10:01 Dose: 30 mcg/min, 9 mls/hr Documented by: Isosorbide Mononitrate (Isosorbide Mononitrate Er 30 Mg Tablet) 30 mg PO BEDTIME JANNET Lidocaine/Prilocaine (Lidocaine-Prilocaine Cream 5 Gm) 0 applic TOPICAL PRN PRN PRN Reason: use as directed over fistula Metoprolol Tartrate (Metoprolol Tartrate 25 Mg Tablet) 25 mg PO DAILY [facility] [place] Last Admin: 09/08/21 08:52 Dose: 25 mg Documented by: Nitroglycerin (Nitroglycerin 0.4 Mg Sublingual Tablet) 0.4 mg SUBLINGUAL Q5M PRN PRN Reason: Chest Pain Ondansetron HCl (Ondansetron 2 Mg/Ml Sdv 2 Ml) 4 mg IVP Q8H PRN PRN Reason: vomiting, or N/V if npo Last Admin: 09/08/21 06:19 Dose: 4 mg Documented by: Oxycodone HCl (Oxycodone 5 Mg Ir Tab/Cap) 5 mg PO BID PRN PRN Reason: MODERATE PAIN Last Admin: 09/08/21 01:20 Dose: 5 mg Documented by: Pantoprazole Sodium (Pantoprazole Dr 40 Mg Tablet) 40 mg PO DAILY [facility] [place] Last Admin: 09/08/21 09:42 Dose: 40 mg Documented by: Prednisone (Prednisone 10 Mg Tablet) 10 mg PO QAM [facility] [place] Last Admin: 09/08/21 05:46 Dose: 10 mg Documented by: Pregabalin (Pregabalin 75 Mg Capsule) 75 mg PO BID [facility] [place] Last Admin: 09/08/21 08:52 Dose: 75 mg Documented by: Promethazine HCl (Promethazine 25 Mg Tablet) 12.5 mg PO Q6H PRN PRN Reason: Nausea Sacubitril/Valsartan (Sacubitril/Valsartan 24-26 Mg Tablet) 1 each PO BID [facility] [place] Last Admin: 09/08/21 08:51 Dose: 1 each Documented by: Sevelamer Carbonate (Sevelamer 800 Mg Tablet) 2,400 mg PO TIDWM [facility] [place] Last Admin: 09/08/21 13:38 Dose: Not Given Documented by: Sevelamer Carbonate (Sevelamer 800 Mg Tablet) 1,600 mg PO BID PRN PRN Reason: LARGE SNACKS Vitals/I&O/Wt Last Vital Signs Temp 97.7 F 09/08/21 12:00 Pulse 81 09/08/21 12:00 Resp 16 09/08/21 12:00 BP 118/63 09/08/21 12:00 Pulse Ox 95 09/08/21 12:00 09/08/21 09/08/21 09/08/21 06:59 14:59 22:59 Intake Total 118.491 / 223.491 482 / 482 Balance 118.491 / 223.491 482 / 482 Weight last 48 hrs Weight 180 lb Weight 180 lb Weight 180 lb Physical Exam Narrative: EXAM NARRATIVE: GENERAL: The patient is alert and oriented times three. Not in any acute distress. HEENT: Minimal pallor. No, icterus or lymphadenopathy.Oral cavity: There are no mucous membrane lesions. NECK: Trachea appears to be central. No masses noted. No JVD or thyromegaly appreciated. RESPIRATORY: Chest is symmetrical. No intercostals muscle retraction or any accessory muscle activation. There is no chest wall tenderness. Breath sounds are heard bilaterally. No rales or rhonchi heard. No evidence of any consolidation. BREASTS: Deferred. HEART: The heart sounds are normal. No S3 or S4. Short systolic murmur the left sternal border and also at the base of the heart. No diastolic murmurs.. No pericardial rub ABDOMEN: No vessel pulsations or distention. No tenderness. No organomegaly appreciated. Bowel sounds are normally heard. : Deferred. RECTAL: Deferred. LYMPHATIC: No lymphadenopathy noted in the neck or groin. EXTREMITIES: Edema with no cyanosis. MUSCULOSKELETAL: No acute joint deformities or swelling SKIN: There are no significant rashes or ecchymosis NEUROPSYCHIATRIC: The patient is alert and oriented x3. Appears to be in a good mood. No tremors or rigidity noted. Data : 09/07/21 15:38 09/08/21 02:38 Other Labs: Laboratory Last Values WBC 8.3 10^3/uL (4.0-10.0) 09/07/21 15:38 RBC 3.40 10^6/uL (4.1-5.3) L 09/07/21 15:38 Hgb 9.9 g/dL (11.7-16.6) L 09/07/21 15:38 Hct 30.8 % (42.0-52.0) L 09/07/21 15:38 MCV 90.6 fl (80-94) 09/07/21 15:38 MCH 29.1 pg (28.0-34.0) 09/07/21 15:38 MCHC 32.1 g/dL (30.0-36.0) 09/07/21 15:38 RDW 15.1 % (12.1-15.1) 09/07/21 15:38 Plt Count 136 10^3/cmm (130-400) 09/07/21 15:38 MPV 9.7 fL (7.4-10.4) 09/07/21 15:38 Neut % (Auto) 90.1 % 09/07/21 15:38 Lymph % (Auto) 3.3 % 09/07/21 15:38 [place] % (Auto) 5.4 % 09/07/21 15:38 Eos % (Auto) 0.1 % 09/07/21 15:38 Baso % (Auto) 0.6 % 09/07/21 15:38 Neut # (Auto) 7.45 10^3/uL (1.8-7.7) 09/07/21 15:38 Lymph # (Auto) 0.3 10^3/uL (0.8-4.8) L 09/07/21 15:38 [place] # (Auto) 0.5 10^3/uL (0.2-0.9) 09/07/21 15:38 Eos # (Auto) 0.0 10^3/uL (0.0-0.8) 09/07/21 15:38 Baso # (Auto) 0.1 10^3/uL (0.0-0.1) 09/07/21 15:38 Nucleated RBC % (auto) 0 % 09/07/21 15:38 Nucleated RBCs # 0.0 /100WBC 09/07/21 15:38 APTT 56.9 SECONDS (23.9-36.7) H 09/08/21 09:56 Sodium 141 mmol/L (136-145) 09/08/21 02:38 Potassium 4.5 mmol/L (3.5-5.1) 09/08/21 02:38 Chloride 99 mmol/L (98-107) 09/08/21 02:38 Carbon Dioxide 25 mmol/L (22-29) 09/08/21 02:38 Anion Gap 21.5 (5-19) H 09/08/21 02:38 BUN 21 mg/dL (6-20) H 09/08/21 02:38 Creatinine 7.1 mg/dL (0.7-1.2) H* 09/08/21 02:38 GFR Calculation 8.2 mL/min (90-130) L 09/08/21 02:38 Glucose 128 mg/dL (65-115) H 09/08/21 02:38 POC Glucose 145 mg/dL (70-110) H 09/08/21 12:07 Calculated Osmolality 297 mOsm/kg (285-295) H 09/08/21 02:38 Calcium 8.6 mg/dL (8.5-10.5) 09/08/21 02:38 Magnesium 1.9 mg/dL (1.7-2.3) 09/07/21 15:38 Total Bilirubin 1.5 mg/dL (0.15-1.2) H 09/08/21 02:38 AST 13 U/L (0-40) 09/08/21 02:38 ALT 7 U/L (0-41) 09/08/21 02:38 Alkaline Phosphatase 91 IU/L (40-130) 09/08/21 02:38 Troponin T Baseline 246 ng/L (0-15) H* 09/07/21 15:38 Troponin T 120 Minute 213.9 ng/L (0-15) H 09/07/21 17:38 Delta Troponin T -32.1 ABS# (0-10) L 09/07/21 17:38 Troponin T Hi Sens 6Hr 223.5 ng/L (0-15) H 09/07/21 21:24 Troponin T Hi Sens 6Hr Delta -22.5 ng/L (0-12) L 09/07/21 21:24 NT-Pro-B Natriuret Pep > 98068 pg/mL (0-125) H 09/07/21 15:38 Total Protein 6.7 g/dL (6.6-8.7) 09/08/21 02:38 Albumin 3.9 g/dL (3.5-5.2) 09/08/21 02:38 Globulin 2.8 g/dL (1.3-4.6) 09/08/21 02:38 Lipase 33 U/L (13-60) 09/07/21 15:38 SARS-CoV-2 Ag (Rapid) Negative (Negative) 09/07/21 16:16 A&P Assessment and plan (1) Non-ST elevation (NSTEMI) myocardial infarction: The patient has a clinical features of non-ST elevation myocardial infarction/unstable angina. Hemodynamically seems to be stable. His blood pressure is a stage II. Possibility of progression of disease in the [place] vessels versus restenosis are considerations. Serial cardiac enzymes are be appropriate. We also may go ahead and do a limited 2D echocardiogram. Patient may be started on IV heparin. Will keep on the current medications for the time being. The echocardiogram was reviewed. LV ejection fraction is around 15 to 20%. LV is mildly dilated. His troponin T remains elevated . There is no significant delta. In view of the ongoing chest pains, in order to further evaluate his coronary status, a repeat cardiac catheterization would be appropriate. The risk of bleeding, hematoma, vascular injury, myocardial infarction, CVA, CHF , acute on chronic renal failure and other concomitant complications were explained in detail. Patient understood this well and consented to proceed. Status: Acute (2) Atherosclerotic heart disease of [place] coronary artery with other forms of angina pectoris: May continue on the current medications. Based on the cardiac catheterization findings , further recommendations will be made. Status: Acute (3) Anemia: Patient is being followed by Dr. Colon. He has hemochromatosis. Whether there is any cardiac involvement is not known at this point. We may consider doing a cardiac MRI to further evaluate. That may not be an emergency at this point. Status: Acute Qualifiers: Anemia type: unspecified type Qualified Code(s): D64.9 - Anemia, unspecified (4) Hemochromatosis: As mentioned above. Patient has hemosiderosis and rectal bleed. Hemoglobin seems to be stable. May continue on the current treatment measures Status: Acute Qualifiers: Hemochromatosis type: unspecified Qualified Code(s): E83.119 - Hemochromatosis, unspecified (5) Ischemic cardiomyopathy: Since the patient has no evidence of any cardiac decompensation, is advised to continue on the current measures. The current medications were reviewed. Status: Acute (6) Mixed hyperlipidemia: Continue on the current management. Follow-up evaluation as scheduled. Status: Acute Additional A&P Information Continue on the current treatment measures. Based on the cardiac catheterization data, further management decisions will be made Attestations Medical Necessity Statement*: Patient requires continued hospital stay for close monitoring and further management Coding Level of Care Code Acute Supervisor Final for Chg Fwd Diagnoses Non-ST elevation (NSTEMI) myocardial infarction I21.4 Atherosclerotic heart disease of [place] coronary artery with other forms of angina pectoris I25.118 Anemia D64.9 Anemia type: unspecified type Hemochromatosis E83.119 Hemochromatosis type: unspecified Ischemic cardiomyopathy I25.5 Mixed hyperlipidemia E78.2
[2021-09-08 16:25] LABS: Glucose Point of Care 130 mg/dL (70-110)
--- NOTE | 2021-09-08 16:27 | W.PM.OPSUD ---
Surgery/Procedure H&P Update DATE OF PROCEDURE: September 08, 2021 DATE H&P PERFORMED: 09/07/20 H&P UPDATE INFORMATION: I have reviewed H&P completed within last 30 days, I have examined patient prior to procedure and No changes to prior documentation PREOP DIAGNOSIS: NSTEMI/ASHD PRIMARY INDICATION FOR PROCEDURE: Unstable angina PATIENT REASSESSED PRIOR TO SEDATION, WITH NO CHANGE NOTED: Yes PHYSICAL EXAM: alert, oriented x 3, clear to auscultation bilaterally and regular rate & rhythm AIRWAY EVAL/ANESTHESIA PLAN: normal airway, see other exam findings, ASA IV, Monitored Anesthesia, Local Anesthesia, Risks, benefits & alternatives of sedation and/or procedure discussed and Patient agrees to continue as planned ADDITIONAL INFORMATION: In view of the patient's severe LV systolic dysfunction and renal failure, he carries a high risk for the invasive procedure and side effects with sedation. This was discussed with the patient and family which they understood well and consented to proceed
--- NOTE | 2021-09-08 17:31 | PC.NURSE ---
to cardiac labor arbitrator at 1420 via w/c.
--- NOTE | 2021-09-08 19:46 | PC.NURSE ---
pt received from cardiac slab puller at 1840.report received.pt on ntg drip through-out case for bp control.remains at 40 mcg/kg per min on arrival to room.pt is sleepy but easily aroused.sr on monitor.right groin with femoral sheath intact to pressurized system.right groin with drsg dry and intact.no hematoma noted.right dp/pt pulses are dopplerable.right leg is warm tot ouch and blanches briskly.instructed in activity restrictions s/p femoral artery procedure..and instructed to notify staff for any bleeding,pain,numbness..or for any concerns at all.pt verb understanding of instructions.
--- NOTE | 2021-09-08 19:50 | PC.NURSE ---
ntg drip weaned off as ordered.obtained order to apply 1 inch ntg paste for sbp>150.report gave to dialysis nurse.to dialysis via bed at 194.
--- NOTE | 2021-09-08 20:45 | PC.NURSE ---
Patient is currently receiving hemodialysis treatment in dialysis room from dialysis nurse.
[2021-09-08] MEDS: clopidogrel 75 mg Tablet PO (21:05)
[2021-09-08] MEDS: nitroglycerin 1 gm/inch oint Pkt 1 INCH TOPICAL (21:05)
[2021-09-08] MEDS: sevelamer 800 mg Tablet 2400 MG PO (21:05)
[2021-09-08] MEDS: atorvastatin 40 mg Tablet PO (21:05)
[2021-09-08 21:54] LABS: Partial Thromboplastin Time 89.7 SECONDS (23.9-36.7)
--- NOTE | 2021-09-08 23:15 | PC.NURSE ---
Per dialysis nurse, rubi to give Plavix, Imdur, Lipitor, and Renvela during hemodialysis treatment.
--- NOTE | 2021-09-08 23:20 | USCV_ITS ---
Marlon Dorantes Age: 51 Gender: M : 1970 Exam Date: 09/08/2021 07:08 Ordering Phys: Sailaja Carvajal MD Technologist: Aishwarya Bond Exam Location: [facility] [place] Indication: NSTEMI BP: 176 / 110 HR: 99 Rhythm: Sinus Technical Quality: Technically difficult study MEASUREMENTS (Male / Female) Normal Values 2D ECHO LV Diastolic Diameter PLAX 5.8 cm 4.2 - 5.9 / 3.9 - 5.3 cm LV Systolic Diameter PLAX 5.2 cm IVS Diastolic Thickness 1.5 cm 0.6 - 1.0 / 0.6 - 0.9 cm IVS Systolic Thickness 1.5 cm LVPW Diastolic Thickness 1.6 cm 0.6 - 1.0 / 0.6 - 0.9 cm LVPW Systolic Thickness 1.9 cm RV Chamber Size 3.7 cm LVOT Diameter 2.0 cm LV Ejection Fraction 2D Teich 21.3 % LV Ejection Fraction MOD 2C 12.5 % LV Ejection Fraction 2C AL 13.0 % LA Diameter 3.5 cm LA Width 3.4 cm LA Height 4.5 cm RA Width 3.2 cm RA Height 4.9 cm Aorta at Sinotubular Diameter 2.1 cm FINDINGS Left Ventricle Severe diffuse hypokinesis of the left ventricle with ejection fraction of 15-20%. Mildly dilated LV cavity Right Ventricle Mildly dilated right ventricle with a slightly diminished ejection fraction Right Atrium The right atrium is normal in size. Left Atrium Mildly increased left atrial size. Mitral Valve Thickened mitral valve. Mild mitral annular calcification. Aortic Valve Thickened aortic valve. Tricuspid Valve No gross abnormalities noted. Pulmonic Valve no gross abnormalities noted Pericardium No pericardial effusion. Aorta Normal aortic annulus size. CONCLUSIONS Severe diffuse hypokinesis of the left ventricle with ejection fraction of 15-20%. Mildly dilated LV cavity. Mildly increased left atrial size. Mildly dilated right ventricle with a slightly diminished ejection fraction. Minimally thickened aortic and mitral valves. Mild mitral annular calcification. There is no pericardial effusion. There are no intracardiac masses. Compared to the study from 07/23/1991, there may not be a significant change. Dr Isauro Landis MD [facility] (Electronically Signed) Final Date: 08 September 2021 08:15 S
--- NOTE | 2021-09-08 23:43 | PC.NURSE ---
Patient returned from dialysis. Dialysis nurse states that 3 liters were removed.
[2021-09-09] VITALS (37 sets, daily range): BP systolic 116–147; BP diastolic 66–93; PULSE 63–89; RESP 13–21; TEMP 36.2–36.9; O2SAT 90–100
[2021-09-09 00:15] LABS: Partial Thromboplastin Time 31.5 SECONDS (23.9-36.7)
[2021-09-09] MEDS: oxyCODONE 5 mg IR Tab/Cap PO ×3 (01:05→22:52)
--- NOTE | 2021-09-09 01:08 | PC.NURSE ---
Sheath removed from right groin at 0028. Manual pressure held for 20 minutes. Dressing applied. VSS. No bleeding or hematoma noted at this time. Will monitor frequently. Patient educated on post-cath activity restrictions and care and verbalized understanding.
[2021-09-09 02:50] LABS: Basophils % 0.2 %; Hematocrit 26.6 % (42.0-52.0); Hemoglobin 8.5 g/dL (11.7-16.6); Lymphocytes # 0.2 10^3/uL (0.8-4.8); Lymphocytes % 3.3 %; Mean Corpuscular Hemoglobin 29.8 pg (28.0-34.0); Mean Corpuscular Volume 93.3 fl (80-94); Monocytes # 0.1 10^3/uL (0.2-0.9); Monocytes % 1.9 %; Neutrophils # 4.57 10^3/uL (1.8-7.7); Neutrophils % 94.2 %; Nucleated Red Blood Cells % 0 %; Platelet Count 116 10^3/cmm (130-400); Red Blood Count 2.85 10^6/uL (4.1-5.3); Red Cell Distribution Width 15.2 % (12.1-15.1); White Blood Count 4.9 10^3/uL (4.0-10.0)
[2021-09-09] MEDS: ipratropium-albuterol 3 mL Neb INHALATION ×4 (03:12→21:01)
[2021-09-09 03:25] LABS: Anion Gap 22.1 (5-19); Blood Urea Nitrogen 19 mg/dL (6-20); Calcium 8.3 mg/dL (8.5-10.5); Carbon Dioxide 23 mmol/L (22-29); Chloride 95 mmol/L (98-107); Glomerular Filtration Rate 11.5 mL/min (90-130); Glucose 207 mg/dL (65-115); Osmolality Calculated 290 mOsm/kg (285-295); Potassium 4.1 mmol/L (3.5-5.1); Sodium 136 mmol/L (136-145)
[2021-09-09] MEDS: predniSONE 10 mg Tablet PO (05:07)
[2021-09-09] MEDS: duloxetine 20 mg Capsule PO (05:07)
[2021-09-09] MEDS: pantoprazole DR 40 mg Tablet PO (05:07)
[2021-09-09] MEDS: aspirin 81 mg EC Tablet PO (05:08)
--- NOTE | 2021-09-09 05:43 | PC.NURSE ---
Patient ambulated with nurse. Right groin site WNL. Distal pulses doppled. VSS. Patient up to chair.
[2021-09-09 07:23] LABS: Glucose Point of Care 183 mg/dL (70-110)
--- NOTE | 2021-09-09 08:19 | ECG_ITS ---
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 Measurements Intervals Rudolph Rate: 75 P: 43 TN: 152 QRS: -5 QRSD: 110 T: 189 QT: 449 QTc: 503 Interpretive Statements SINUS RHYTHM POSSIBLE LEFT ATRIAL ENLARGEMENT [-0.1mV P WAVE IN V1/V2] LEFT VENTRICULAR HYPERTROPHY AND ST-T CHANGE [VOLTAGE CRITERIA PLUS ST/T ABNORMALITY] Diffuse nonspecific diffuse nonspecific ST-T changes Compared to ECG 09/08/2021 00:17:54 No significant changes Electronically Signed On 09-09-2021 22:50:19 [employer] by Isauro Landis M.D. [id number]
--- NOTE | 2021-09-09 09:03 | PM.PN ---
Subjective Subjective: Interval history: Mr. Dorantes underwent an angiogram yesterday afternoon which demonstrated the stented segment of the mid LAD had a high-grade lesion which I believe was stented. He subsequently received hemodialysis yesterday evening and had 3 L removed. This morning he still has some persistent chest pain. An EKG was done. The electronic report says that there are no new changes. This is to be formally evaluated by Dr. Landis. His blood pressure and pulse are stable this morning. He is maintaining his oxygen saturations on room air. Medications: Reviewed: Yes Medication Review Details: Current Medications Acetaminophen (Acetaminophen 325 Mg Tablet) 650 mg PO Q6H PRN PRN Reason: Mild/Mod Pain Or Temp >/= 101 Albuterol/Ipratropium (Ipratropium-Albuterol 3 Ml Neb) 3 ml INHALATION Q6H.RESPIRATORY [facility] Last Admin: 09/08/21 08:14 Dose: 3 ml Documented by: Amlodipine Besylate (Amlodipine 5 Mg Tablet) 5 mg PO DAILY [facility] Last Admin: 09/08/21 09:37 Dose: 5 mg Documented by: Aspirin (Aspirin 81 Mg Ec Tablet) 81 mg PO QAM [facility] Last Admin: 09/08/21 05:46 Dose: 81 mg Documented by: Atorvastatin Calcium (Atorvastatin 40 Mg Tablet) 40 mg PO BEDTIME JANNET Azathioprine (Azathioprine 50 Mg Tablet) 0 mg PO 0800,2100 [facility] Last Admin: 09/08/21 08:51 Dose: 50 mg Documented by: Clopidogrel Bisulfate (Clopidogrel 75 Mg Tablet) 75 mg PO BEDTIME JANNET Duloxetine HCl (Duloxetine 20 Mg Capsule) 20 mg PO QAM [facility] Last Admin: 09/08/21 05:46 Dose: 20 mg Documented by: Heparin Sodium (Porcine) (Heparin 5,000 Unit/Ml Inj 1 Ml) 0 unit IV PRN PRN; Protocol PRN Reason: Heparin weight-base protocol Last Admin: 09/07/21 22:18 Dose: 4,000 unit Documented by: Heparin Sodium/Sodium Chloride (Heparin Drip) 25,000 unit in 500 mls @ 0 mls/hr IV .Q0M [facility]; Protocol Last Titration: 09/08/21 03:30 Dose: 12.16 unit/kg/hr, 19.86 mls/hr Documented by: Nitroglycerin/Dextrose (Nitroglycerin Drip) 50 mg in 250 mls @ 0 mls/hr IV .Q0M [facility]; Protocol Last Titration: 09/08/21 10:01 Dose: 30 mcg/min, 9 mls/hr Documented by: Isosorbide Mononitrate (Isosorbide Mononitrate Er 30 Mg Tablet) 30 mg PO BEDTIME [facility] Lidocaine/Prilocaine (Lidocaine-Prilocaine Cream 5 Gm) 0 applic TOPICAL PRN PRN PRN Reason: use as directed over fistula Metoprolol Tartrate (Metoprolol Tartrate 25 Mg Tablet) 25 mg PO DAILY [facility] Last Admin: 09/08/21 08:52 Dose: 25 mg Documented by: Nitroglycerin (Nitroglycerin 0.4 Mg Sublingual Tablet) 0.4 mg SUBLINGUAL Q5M PRN PRN Reason: Chest Pain Ondansetron HCl (Ondansetron 2 Mg/Ml Sdv 2 Ml) 4 mg IVP Q8H PRN PRN Reason: vomiting, or N/V if npo Last Admin: 09/08/21 06:19 Dose: 4 mg Documented by: Oxycodone HCl (Oxycodone 5 Mg Ir Tab/Cap) 5 mg PO BID PRN PRN Reason: MODERATE PAIN Last Admin: 09/08/21 01:20 Dose: 5 mg Documented by: Pantoprazole Sodium (Pantoprazole Dr 40 Mg Tablet) 40 mg PO DAILY [facility] Last Admin: 09/08/21 09:42 Dose: 40 mg Documented by: Prednisone (Prednisone 10 Mg Tablet) 10 mg PO QAM [facility] Last Admin: 09/08/21 05:46 Dose: 10 mg Documented by: Pregabalin (Pregabalin 75 Mg Capsule) 75 mg PO BID [facility] Last Admin: 09/08/21 08:52 Dose: 75 mg Documented by: Promethazine HCl (Promethazine 25 Mg Tablet) 12.5 mg PO Q6H PRN PRN Reason: Nausea Sacubitril/Valsartan (Sacubitril/Valsartan 24-26 Mg Tablet) 1 each PO BID [facility] Last Admin: 09/08/21 08:51 Dose: 1 each Documented by: Sevelamer Carbonate (Sevelamer 800 Mg Tablet) 2,400 mg PO TIDWM [facility] Last Admin: 09/08/21 13:38 Dose: Not Given Documented by: Sevelamer Carbonate (Sevelamer 800 Mg Tablet) 1,600 mg PO BID PRN PRN Reason: LARGE SNACKS Vitals/I&O/Wt Last Vital Signs Temp 97.7 F 09/09/21 08:14 Pulse 84 09/09/21 08:29 Resp 16 09/09/21 08:21 BP 141/80 09/09/21 08:14 Pulse Ox 94 09/09/21 08:21 09/08/21 09/09/21 09/09/21 22:59 06:59 14:59 Intake Total 80.85 / 562.85 620 / 1182.85 240 / 240 Output Total 3500 / 3500 Balance 80.85 / 562.85 -2880 / -2317.15 240 / 240 Weight last 48 hrs Weight 90.356 kg Weight 88.5 kg Weight 81.647 kg Weight 81.647 kg Weight 81.647 kg Physical Exam Narrative: EXAM NARRATIVE: Constitutional: Awake, comfortable HEENT: Wet mucosa, no jvp, non icteric Lungs: Bilaterally clear without discernible wheeze, rales in all lung zones CVS: S1 S2, no murmurs Abdo: Soft, BS ok Ext 4: Minimal edema, peripheral perfusion with no cyanosis Neurological: Grossly non-focal Data : 09/09/21 02:28 09/09/21 02:28 A&P Additional A&P Information 1. ESRD We will plan to do dialysis today later this morning 3K, UF 3L Dose medication for GFR less than [address] Landis, I believe a stent was placed Currently on ARB therapy, beta-luis carlos 3. Hemodynamics Blood pressure looks good. Mgmt per cardiology and I will bring down with ultrafiltration 4. Chronic ESRD issues to be addressed as outpatient as part of standard monthly management. Rei Jacob MD Nephrology [phone] Patient seen and examined via telemedicine, with the assistance of the bedside RN > 25 min spent in evaluation and mgmt of patient Attestations Medical Necessity Statement*: Eval for ESRD Coding Level of Care Code Acute Diesel Technology Instructor for Ger Godfrey
[2021-09-09] MEDS: nitroglycerin 0.4 mg sublingual Tablet SUBLINGUAL (09:06)
--- NOTE | 2021-09-09 09:10 | PM.PN ---
Subjective Subjective: Interval history: Patient underwent left heart catheterization with left and right coronary angiogram yesterday. He was found to have a high-grade lesion in the proximal LAD near to the ostium. He underwent PCI of this lesion. He did okay last night. This morning again he started having chest pain. On a scale of 1-10, intensity of the pain is around 6. He also has some shortness of breath. The EKG showed some diffuse nonspecific ST changes. No new changes. Medications: Reviewed: Yes Medication Review Details: Current Medications Acetaminophen (Acetaminophen 325 Mg Tablet) 650 mg PO Q6H PRN PRN Reason: Mild/Mod Pain Or Temp >/= 101 Albuterol Sulfate (Albuterol 8 Gm Mdi) 2 puff INHALATION QID.RESPIRATORY PRN PRN Reason: shortness of breath or wheezing Albuterol/Ipratropium (Ipratropium-Albuterol 3 Ml Neb) 3 ml INHALATION Q6H.RESPIRATORY [facility] Last Admin: 09/09/21 08:21 Dose: 3 ml Documented by: Amlodipine Besylate (Amlodipine 5 Mg Tablet) 5 mg PO DAILY [facility] Last Admin: 09/08/21 09:37 Dose: 5 mg Documented by: Aspirin (Aspirin 81 Mg Ec Tablet) 81 mg PO QAM [facility] Last Admin: 09/09/21 05:08 Dose: 81 mg Documented by: Atorvastatin Calcium (Atorvastatin 40 Mg Tablet) 40 mg PO BEDTIME [facility] Last Admin: 09/08/21 21:05 Dose: 40 mg Documented by: Azathioprine (Azathioprine 50 Mg Tablet) 0 mg PO 0800,2100 [facility] Last Admin: 09/08/21 23:45 Dose: 50 mg Documented by: Clopidogrel Bisulfate (Clopidogrel 75 Mg Tablet) 75 mg PO BEDTIME [facility] Last Admin: 09/08/21 21:05 Dose: 75 mg Documented by: Duloxetine HCl (Duloxetine 20 Mg Capsule) 20 mg PO QAM [facility] Last Admin: 09/09/21 05:07 Dose: 20 mg Documented by: Fluticasone Propionate (Fluticasone Nasal [place] 16gm Btl) 1 spray INTRANASAL BID PRN PRN Reason: Nasal Congestion Heparin Sodium (Porcine) (Heparin 5,000 Unit/Ml Inj 1 Ml) 0 unit IV PRN PRN; Protocol PRN Reason: Heparin weight-base protocol Last Admin: 09/07/21 22:18 Dose: 4,000 unit Documented by: Heparin Sodium/Sodium Chloride (Heparin Drip) 25,000 unit in 500 mls @ 0 mls/hr IV .Q0M [facility]; Protocol Last Titration: 09/08/21 03:30 Dose: 12.16 unit/kg/hr, 19.86 mls/hr Documented by: Nitroglycerin/Dextrose (Nitroglycerin Drip) 50 mg in 250 mls @ 0 mls/hr IV .Q0M [facility]; Protocol Last Titration: 09/08/21 19:00 Dose: 0 mcg/min, 0 mls/hr Documented by: Isosorbide Mononitrate (Isosorbide Mononitrate Er 30 Mg Tablet) 30 mg PO BEDTIME [facility] Last Admin: 09/08/21 21:05 Dose: 30 mg Documented by: Lidocaine/Prilocaine (Lidocaine-Prilocaine Cream 5 Gm) 0 applic TOPICAL PRN PRN PRN Reason: use as directed over fistula Metoprolol Tartrate (Metoprolol Tartrate 25 Mg Tablet) 25 mg PO DAILY [facility] Last Admin: 09/08/21 08:52 Dose: 25 mg Documented by: Nitroglycerin (Nitroglycerin 0.4 Mg Sublingual Tablet) 0.4 mg SUBLINGUAL Q5M PRN PRN Reason: Chest Pain Last Admin: 09/09/21 09:06 Dose: 1 applic Documented by: Nitroglycerin (Nitroglycerin 1 Gm/Inch Oint Pkt) 1 inch TOPICAL Q6H PRN PRN Reason: high blood pressure Last Admin: 09/08/21 21:05 Dose: 1 inch Documented by: Ondansetron HCl (Ondansetron 2 Mg/Ml Sdv 2 Ml) 4 mg IVP Q8H PRN PRN Reason: vomiting, or N/V if npo Last Admin: 09/08/21 06:19 Dose: 4 mg Documented by: Oxycodone HCl (Oxycodone 5 Mg Ir Tab/Cap) 5 mg PO BID PRN PRN Reason: MODERATE PAIN Last Admin: 09/09/21 01:05 Dose: 5 mg Documented by: Pantoprazole Sodium (Pantoprazole Dr 40 Mg Tablet) 40 mg PO [facility] Last Admin: 09/09/21 05:07 Dose: 40 mg Documented by: Prednisone (Prednisone 10 Mg Tablet) 10 mg PO [facility] Last Admin: 09/09/21 05:07 Dose: 10 mg Documented by: Pregabalin (Pregabalin 75 Mg Capsule) 75 mg PO BID [facility] Last Admin: 09/08/21 08:52 Dose: 75 mg Documented by: Promethazine HCl (Promethazine 25 Mg Tablet) 12.5 mg PO Q6H PRN PRN Reason: Nausea Sacubitril/Valsartan (Sacubitril/Valsartan 24-26 Mg Tablet) 1 each PO BID [facility] Last Admin: 09/08/21 08:51 Dose: 1 each Documented by: Sevelamer Carbonate (Sevelamer 800 Mg Tablet) 1,600 mg PO BID PRN PRN Reason: LARGE SNACKS Sevelamer Carbonate (Sevelamer 800 Mg Tablet) 2,400 mg PO TIDWM [facility] Last Admin: 09/08/21 21:05 Dose: 2,400 mg Documented by: Vitals/I&O/Wt Last Vital Signs Temp 97.7 F 09/09/21 08:14 Pulse 84 09/09/21 08:29 Resp 16 09/09/21 08:21 BP 141/80 09/09/21 08:14 Pulse Ox 94 09/09/21 08:21 09/08/21 09/09/21 09/09/21 22:59 06:59 14:59 Intake Total 80.85 / 562.85 620 / 1182.85 240 / 240 Output Total 3500 / 3500 Balance 80.85 / 562.85 -2880 / -2317.15 240 / 240 Weight last 48 hrs Weight 199 lb 3.2 oz Weight 195 lb 1.745 oz Weight 180 lb Weight 180 lb Weight 180 lb Physical Exam Narrative: EXAM NARRATIVE: GENERAL: The patient is alert and oriented times three. Not in any acute distress. HEENT: Minimal pallor. No, icterus or lymphadenopathy.Oral cavity: There are no mucous membrane lesions. NECK: Trachea appears to be central. No masses noted. No JVD or thyromegaly appreciated. RESPIRATORY: Chest is symmetrical. No intercostals muscle retraction or any accessory muscle activation. There is no chest wall tenderness. Breath sounds are heard bilaterally. No rales or rhonchi heard. No evidence of any consolidation. BREASTS: Deferred. HEART: The heart sounds are normal. No S3 or S4. Short systolic murmur the left sternal border and also at the base of the heart. No diastolic murmurs.. No pericardial rub ABDOMEN: No vessel pulsations or distention. No tenderness. No organomegaly appreciated. Bowel sounds are normally heard. : Deferred. RECTAL: Deferred. LYMPHATIC: No lymphadenopathy noted in the neck or groin. EXTREMITIES: No hematoma or bleeding from the right groin. MUSCULOSKELETAL: No acuteNo hematoma or bleeding the right groin joint deformities or swelling SKIN: There are no significant rashes or ecchymosis NEUROPSYCHIATRIC: The patient is alert and oriented x3. Appears to be in a good mood. No tremors or rigidity noted. Data : 09/09/21 02:28 09/09/21 02:28 A&P Assessment and plan (1) Non-ST elevation (NSTEMI) myocardial infarction: Patient status post PCI of the proximal LAD lesion. Currently has recurrence of chest pain. Possibilities are acute stent thrombosis/lesion in the intermedius artery causing the symptoms. The patient was found to have a segmental lesion of around 60 to 70% in the proximal segment of the intermedius artery. The IFR was .89. If the patient continues to have chest pain this may need to be intervened. Status: Acute (2) Atherosclerotic heart disease of [place] coronary artery with other forms of angina pectoris: As mentioned above Status: Acute (3) Anemia: Patient is being followed by Dr. Colon. He has hemochromatosis. Whether there is any cardiac involvement is not known at this point. We may consider doing a cardiac MRI to further evaluate. That may not be an emergency at this point. Status: Acute Qualifiers: Anemia type: unspecified type Qualified Code(s): D64.9 - Anemia, unspecified (4) Hemochromatosis: As mentioned above. Patient has a history of pulmonary hemorrhage and GI bleed Status: Acute Qualifiers: Hemochromatosis type: unspecified Qualified Code(s): E83.119 - Hemochromatosis, unspecified (5) Ischemic cardiomyopathy: Since the patient has no evidence of any cardiac decompensation, is advised to continue on the current measures. The current medications were reviewed. Status: Acute (6) Mixed hyperlipidemia: Continue on the current management. Follow-up evaluation as scheduled. Status: Acute Additional A&P Information Patient is given sublingual nitroglycerin. If he continues to have chest pain, we may consider doing a repeat cardiac catheterization. I will be discussing this with Dr. Gallegos. Attestations Medical Necessity Statement*: Patient requires continued hospital stay for close monitoring and further management Coding Level of Care Code Acute Roller for Chg Fwd Diagnoses Non-ST elevation (NSTEMI) myocardial infarction I21.4 Atherosclerotic heart disease of [place] coronary artery with other forms of angina pectoris I25.118 Anemia D64.9 Anemia type: unspecified type Hemochromatosis E83.119 Hemochromatosis type: unspecified Ischemic cardiomyopathy I25.5 Mixed hyperlipidemia E78.2
--- NOTE | 2021-09-09 09:31 | XACV_ITS ---
Exam Room: [facility] Ht: 178 cm Wt: 82 kg BSA: 2.02 m2 Gender: Male : 1970 Any Known Allergies: Other Exam Priority: Routine Procedure(s): Procedure Description: PCI procedure Procedure Description: Drug Eluting Coronary Stent Procedure Description: PTCA Boby BOOTHE; Diagnostic Cath Status: Urgent Diagnostic Findings * Ramus artery: Has significant 70 % proximal stenosis. Ischemia was confirmed with iFR before Left main artery: Minor luminal irregularities LAD: Patent proximal stent. Left circumflex artery: 40 to 50% ostial stenosis. RCA not injected. * Ramus: obstructive 70% stenosis, BRENDA: 3 flow. iFR performed yesterday was significant with a value of 0.89. * Indication: Patient had undergone PCI of proximal LAD yesterday. Today he started having chest pain again which was not resolving with nitro drip. His primary pattern storage clerk referred to reevaluate his coronary arteries. * 1st Diagonal: obstructive 70% stenosis, BRENDA: 3 flow. Diagonal artery is jailed with LAD stent. Ostial narrowing.. * Coronary angiography shows right dominance. PCI Status: Urgent PCI Indication: Other Interventional Findings * Procedure details: We engaged left main artery with XB 3.5 guide catheter. IV heparin was administered to maintain an ACT above 250 seconds. A 0.014 run-through guidewire was used to cross the ramus artery stenosis. Lesion was predilated with a 2.5 x 12 mm noncompliant balloon. This was followed by placement of 3.0 x 18 mm resolute Jose drug-eluting stent. We turned turned our attention to ostial diagonal lesion that appeared to be jailed with LAD stent. A run-through guidewire was used to cross into the diagonal artery. We dilated the ostium with 2.5 x 12 mm semicompliant balloon. At this time final angiogram was performed that showed excellent stent expansion, BRENDA-3 flow and no residual stenosis. Guidewire and guide catheter were removed. Patient left the Varnisher in a stable condition. * Ramus: 70% stenosis treated with a AB TREK 2.50X12 RX BALLOON, and MDT R JOSE 3.0X18 ALEXYS. 0% residual stenosis, BRENDA: 3 flow. * 1st Diagonal: 70% stenosis treated with a AB TREK 2.50X12 RX BALLOON. 0% residual stenosis, BRENDA: 3 flow. Conclusions 1. Ramus artery: Has significant 70 % proximal stenosis. Ischemia was confirmed with iFR before Left main artery: Minor luminal irregularities LAD: Patent proximal stent. Left circumflex artery: 40 to 50% ostial stenosis. RCA not injected. 2. Severe ramus artery stenosis confirmed with IFR performed on previous cath. Status post successful revascularization with ALEXYS x1. Significant ostial diagonal artery stenosis secondary to jailing with LAD stent. Successful revascularization with balloon angioplasty. 3. Ramus was treated with a Balloon, and Drug Eluting Stent. 4. 1st Diagonal was treated with a Balloon. Recommendations * Transfer back to [facility]. * Continue aspirin and Plavix. * Plan hemodialysis today. * Outpatient cardiology follow-up. Interventional RX Recommendation: PCI w/o planned CABG Diagnostic RX Recommendation: PCI w/o planned CABG Anticoagulation: Heparin Pressures Phase:Rest AO : 118 / 79 ( 96 ) @ 7:52:00 AM 116 / 79 ( 96 ) @ 7:54:00 AM 120 / 86 ( 102 ) @ 8:01:00 AM 145 / 106 ( 125 ) @ 8:04:00 AM 148 / 107 ( 127 ) @ 8:05:00 AM 158 / 106 ( 128 ) @ 8:13:00 AM Clinical Evaluation EBL: 5mL-10mL Procedural Details Pre-Procedure Time Out. Identified patient by full name and date of as verbalized by the patient/guarantor. Does the consent match the physician's order: Yes. Accurate & Complete Informed Consent: Yes. Inpatient/Outpatient History & Physical on Chart: Yes. If H&P is completed, is and addenduem needed: No; If yes, is the addendum complete: N/A. Visualize and Verify Site with Patient/Guarantor: N/A. Pre-op teaching completed and patient verbalized understanding. The risks, benefits, and alternatives of sedation and/or procedure were discussed by physician. The patient agrees to continue. Procedure started. [facility] Clinical Fraility Score: 5: Mildly Frail. Varnisher Indications: Worsening Angina. Chest Pain Symptom Assessment: Typical Angina Symptoms. Correct patient, site and procedure confirmed by cath team. Current diagnosis: Chest Pain. PERRLA. 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 Lungs clear x 5 lobes. IV Site on Arrival: 18 gauge in the left anticubital. IV Fluids: 0.9% NaCl at KVO. 100 mL infused prior to pie bakery laborer. Oxygen started at 2liters/min via nasal canula. bilateral groins was prepped with chloroprep then draped in the usual sterile fashion. Baseline sample Acquired. HR: 80 BPM. Physician notified. Physician arrived. Physician scrubbed in. Immediate Pre-Procedure Time Out. Correct Patient: Yes; Correct Procedure: Yes; Correct Site: Yes; Correct Patient Position: Yes; Correct Supplies: Yes; Dried Flammable Prep: Yes; Blood Products Available: N/A;. Dr. Gallegos using ultrasound to gain arterial access. Lidocaine 1% infiltrated to the right groin. Arterial access obtained. 6 spanish XB 3.5 guide catheter was inserted over the wire. Multiple views taken of left coronary artery. Runthrough guidewire was advanced through the guide catheter to lesion in the Ramus. Inflation number : 1 A AB TREK 2.50X12 RX BALLOON was prepped and advanced across the Ramus , then inflated to 12 CANDY for 0:30 seconds. Inflation number: 2 The AB TREK 2.50X12 RX BALLOON was reinflated across the Ramus, to 10 CANDY for 0:12 seconds. Balloon out. Inflation Number : 3 A SARI Alberto JOSE 3.0X18 ALEXYS -Lot Number# _[id number] EXP: 06/15/2024 was prepped and advanced across the Ramus. The stent was deployed at 12 CANDY for 0:28 seconds. Stent balloon out over wire. Results checked. Nitro drip at 40mcg/min Wire redirected to the ostial Diag. Inflation number: 1 The AB TREK 2.50X12 RX BALLOON was reinflated across the 1st Diag, to 12 CANDY for 0:31 seconds. Balloon out. Results checked. Wire out. Results checked. Guide catheter out. Sheath(s) sutured into position with 2-0 silk and sterile 4x4's and Op-site applied over the site. No oozing or signs and symptoms of hematoma noted. Arterial sheath flushed and connected to tranducer and pressure bag with heparinized saline. A Suture was successful obtaining hemostatsis at the Right Femoral artery insertion site. Post Procedure: Pulses reassessed and unchanged. No VTE prophylaxis required. Medication's Wasted: Lidocaine 1% = 12 mL. Total IV fluids: 43 mL. Contrast type used: Visipaque 320 mgI/mL, 500 mL bottle. Complications: None. Estimated blood loss: 5mL-10mL. Procedure completed. Patient transferred by bed to 1st floor. Vital chart was stopped. Access Site Site: Right Femoral artery Sheath Size: 6 Fr Hemostasis Method: Suture Hemostasis Success: Successful Procedure Medications Start: 9:40 AM Stop: 9:40 AM Medication: Benadryl Amount: 50 mg Route: I.V. Start: 9:43 AM Stop: 9:43 AM Medication: Versed Amount: 1 mg Route: I.V. Start: 9:43 AM Stop: 9:43 AM Medication: Fentanyl Amount: 50 mcg Route: I.V. Start: 9:52 AM Stop: 9:52 AM Medication: Versed Amount: 1 mg Route: I.V. Start: 9:55 AM Stop: 9:55 AM Medication: Heparin Amount: 8000 units Route: I.V. Start: 10:03 AM Stop: 10:03 AM Medication: Fentanyl Amount: 50 mcg Route: I.V. Start: 10:05 AM Stop: 10:05 AM Medication: Nitrogylcerin Amount: 200 mcg Route: I.C. Start: 10:12 AM Stop: 10:12 AM Medication: Fentanyl Amount: 50 mcg Route: I.V. I, the attending physician, have reviewed and verified all procedure medications. Yes, all medications given per verbal order History/Risk Factors Hypertension: No Dyslipidemia: Yes Peripheral Arterial Disease (PAD): No Myocardial Infarction (MD): Yes Obesity: No Renal Disease: Yes Tobacco Use: Former Dialysis: Current Prior Interventions PCI: Yes CABG: No Valve Surgery: No Date of PCI: 07/08/2021 Report Signatures Finalized by Vaibhav Gallegos MD on 09/23/2021 05:43 PM
--- NOTE | 2021-09-09 09:40 | W.PM.OPSUD ---
Surgery/Procedure H&P Update DATE OF PROCEDURE: September 09, 2021 DATE H&P PERFORMED: 09/07/21 H&P UPDATE INFORMATION: I have reviewed H&P completed within last 30 days, I have examined patient prior to procedure and No changes to prior documentation PREOP DIAGNOSIS: Unstable angina PRIMARY INDICATION FOR PROCEDURE: Unstable angina PLANNED PROCEDURE: Operation Date: 09/09/21 16:30 Proposed Procedures p Cardiac Catheterization(Not Applicable) - Vaibhav Gallegos MD Possible percutaneous coronary intervention PATIENT REASSESSED PRIOR TO SEDATION, WITH NO CHANGE NOTED: Yes PHYSICAL EXAM: alert, oriented x 3, clear to auscultation bilaterally and regular rate & rhythm AIRWAY EVAL/ANESTHESIA PLAN: ASA III, Monitored Anesthesia, Local Anesthesia, Risks, benefits & alternatives of sedation and/or procedure discussed and Patient agrees to continue as planned
--- NOTE | 2021-09-09 09:49 | PC.NURSE ---
pt c/o chest pain at 0825.states has had pressure since got up this morning after bedrest.rates pain 5/10.dr dowd aware and ordered an ekg, which was obtained.order for sl ntg obtained.bp 136/71,hr 82,o2 sat 99% on 2 l o2 prior to admin of ntg.ntg given at 0907.pt now c/o pain radiating to left scapula..rating 5/10.bp after ntg 127/70.hr 87.2nd ntg given at 0914.dr nascimento and dr dowd here to evaluate pt.after 2nd ntg..bp 134/69.hr 88.o2 sat 97%.pt now c/o sob.no diaphoresis noted.color remains good.doctors decided to take pt to photo lab manager.left for photo lab manager at 0933 per bed.report given to photo lab manager staff.
[2021-09-09 10:10] LABS: Troponin T (5th) Once 202 ng/L (0-15)
--- NOTE | 2021-09-09 10:21 | ECG_ITS ---
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 Measurements Intervals [place] Rate: 93 P: 44 WV: 128 QRS: -1 QRSD: 105 T: 123 QT: 395 QTc: 494 Interpretive Statements SINUS RHYTHM POSSIBLE LEFT ATRIAL ENLARGEMENT [-0.1mV P WAVE IN V1/V2] LEFT VENTRICULAR HYPERTROPHY AND ST-T CHANGE [VOLTAGE CRITERIA PLUS ST/T ABNORMALITY] Compared to ECG 09/09/2021 08:24:59 No significant changes Electronically Signed On 09-09-2021 22:42:40 ELEMENTARY SCHOOL TEACHER by Isauro Landis M.D. [id number]
--- NOTE | 2021-09-09 10:24 | USCV_ITS ---
Marlon Dorantes Age: 51 Gender: M : 1970 Exam Date: 09/09/2021 10:40 Ordering Phys: Vaibhav Gallegos M.D ([email or web address]) Technologist: LYNDA Exam Location: [facility] [place], [place] Indication: CHEST PAIN BP: 155 / 94 HR: 90 Rhythm: Sinus Technical Quality: Adequate MEASUREMENTS (Male / Female) Normal Values 2D ECHO LV Diastolic Diameter PLAX 5.6 cm 4.2 - 5.9 / 3.9 - 5.3 cm LV Systolic Diameter PLAX 5.3 cm IVS Diastolic Thickness 1.1 cm 0.6 - 1.0 / 0.6 - 0.9 cm IVS Systolic Thickness 1.1 cm LVPW Diastolic Thickness 1.6 cm 0.6 - 1.0 / 0.6 - 0.9 cm LVPW Systolic Thickness 1.8 cm LVOT Diameter 2.0 cm LV Ejection Fraction 2D Teich 18.3 % LV Ejection Fraction MOD 2C 17.2 % LV Ejection Fraction 2C AL 19.7 % LA Diameter 3.6 cm Aorta at Sinotubular Diameter 1.7 cm FINDINGS Left Ventricle Right Ventricle Right Atrium Left Atrium Mitral Valve Aortic Valve Tricuspid Valve Pulmonic Valve Pericardium Aorta CONCLUSIONS This is a limited echocardiogram performed to assess LV systolic function and rule out sifnificant pericardial effusion Grsossly LV systolic function is severely reduced with EF of 20- 25%. Regional wall motion abnormalities cannot be assessed because of poor visualization. Trivial pericardial effusion noted. Prior echocardiogram from 09/08/2021, no significant changes are seen. Vaibhav Gallegos MD (Electronically Signed) Final Date: 10 September 2021 13:44 S
[2021-09-09] MEDS: morphine 4 mg/mL SDV 1 mL 2 MG IVP (10:37)
[2021-09-09] MEDS: sacubitril/valsartan 24-26 mg Tablet 1 EACH PO ×2 (10:39→20:48)
[2021-09-09] MEDS: metoprolol tartrate 25 mg Tablet PO (10:41)
[2021-09-09] MEDS: amlodipine 5 mg Tablet PO (10:41)
--- NOTE | 2021-09-09 10:53 | PC.NURSE ---
return from cardiac laborer salvage at 1025.report received.pt is awake,but drowsy.sr on monitor.right femoral arterial sheath is intact to pressurized system.site is dry and intact.no hematoma noted.right leg is warm to touch and with brisk capillary refill.instructed in post femoral arterial procedure activity restrictions.pt verb understanding of instructions.pt cont to c/o chest pain..substernal,radiating to left scapula, rating pain 7/10.pt came to room with nitro gtt running at 60 mcg/kg/min.stat ekg obtained as ordered.2 mg mso4 given iv,and limited echo obtained.will cont to monitor and treat.
--- NOTE | 2021-09-09 11:40 | PM.PN ---
Subjective Subjective: Interval history: On 09/08 a stent was placed however on 09/09 at the time of evaluation patient was complaining of 5/10 chest pain substernal which she was describing as pressure-like sensation radiating towards the left shoulder blade, Dr. Landis notified, patient was taken to the [facility] EKG showing biphasic T waves Vitals/I&O/Wt Last Vital Signs Temp 97.7 F 09/09/21 08:14 Pulse 84 09/09/21 08:29 Resp 21 H 09/09/21 10:37 BP 141/80 09/09/21 08:14 Pulse Ox 94 09/09/21 08:21 09/08/21 09/09/21 09/09/21 22:59 06:59 14:59 Intake Total 80.85 / 562.85 620 / 1182.85 240 / 240 Output Total 3500 / 3500 Balance 80.85 / 562.85 -2880 / -2317.15 240 / 240 Weight last 48 hrs Weight 90.356 kg Weight 88.5 kg Weight 81.647 kg Weight 81.647 kg Weight 81.647 kg Physical Exam Narrative: EXAM NARRATIVE: Patient was laying supine Complaining of chest pain Nonreproducible chest pain Hemodynamically stable S1, S2 Abdomen soft Gross symmetry no edema Does not have severe signs of fluid overload Fatigue and lethargic EOMI: PERRLA Nonfocal neuro exam Data : 09/09/21 02:28 09/09/21 02:28 A&P Assessment and plan (1) Non-ST elevation (NSTEMI) myocardial infarction: Status: Acute (2) Ischemic cardiomyopathy: Status: Acute (3) CHF NYHA class III (symptoms with mildly strenuous activities): Status: Acute Qualifiers: Congestive heart failure type: combined Congestive heart failure chronicity: acute on chronic Qualified Code(s): I50.43 - Acute on chronic combined systolic (congestive) and diastolic (congestive) heart failure (4) ESRD (end stage renal disease): Status: Acute Additional A&P Information Unstable angina, recurrent chest pain patient was taken to the [facility] second time today on 09/09 status post stent placement on 09/08 for details please see cardiac cath report Today EKG was showing biphasic T waves Dr. Landis notified, troponin 202 Ischemic cardiomyopathy patient is refusing LifeVest, he will need outpatient cardiology evaluation for AICD placement, continue Entresto patient is not hypotensive, End-stage renal disease Tuesday dialysis sessions Hypertensive urgency: Patient did require nitro drip yesterday today he had Nitropaste on his chest which was removed in the morning blood pressure was stable sys 140smmhg Renal dialysis diet Full code DVT prophylaxis: Heparin Attestations Medical Necessity Statement*: Continue medical management Time Spent in Patient Care: 16 - 35 minutes Coding Level of Care Code Acute Learning Officer for g Fwd Diagnoses Non-ST elevation (NSTEMI) myocardial infarction I21.4 Ischemic cardiomyopathy I25.5 CHF NYHA class III (symptoms with mildly strenuous activities) I50.43 Congestive heart failure type: combined Congestive heart failure chronicity: acute on chronic ESRD (end stage renal disease) N18.6
[2021-09-09] MEDS: sevelamer 800 mg Tablet 2400 MG PO ×2 (11:50→20:44)
[2021-09-09 11:58] LABS: Glucose Point of Care 202 mg/dL (70-110)
[2021-09-09] MEDS: pregabalin 75 mg Capsule PO ×2 (12:23→20:48)
[2021-09-09 12:50] LABS: Partial Thromboplastin Time 132.2 SECONDS (23.9-36.7)
[2021-09-09] MEDS: ketorolac 30 mg/mL INJ 15 MG IVP (13:19)
[2021-09-09] MEDS: nitroglycerin 1 gm/inch oint Pkt 1 INCH TOPICAL ×2 (15:33→23:22)
[2021-09-09] MEDS: lidocaine 5% Patch 1 PATCH TOPICAL (15:33)
--- NOTE | 2021-09-09 15:51 | PC.NURSE ---
pt continues to c/o chest pain..radiating to left scapula..rating 5/10.no relief obtained by mso4 or toradol iv.vss.sr on monitor.no sob or diaphoresis noted.dr dowd notified.since pt needs to go to dialysis and cannot on ntg drip..he ordered to dc drip after 1 inch ntg paste applied.dr west also notified of status.he ordered lidocaine patch to left scapula.these were given as ordered.pt transported to dialysis via bed at this time.right femoral sheath remains intact to pressurized system.drsg is dry and intact.no hematoma noted.ptt elevated and reported at 1505.will recheck after dialysis
--- NOTE | 2021-09-09 19:48 | PC.NURSE ---
pt remains in dialysis at change of shift
[2021-09-09] MEDS: insulin lispro 100 unit/1 mL SUBCUT (20:47)
[2021-09-09] MEDS: atorvastatin 40 mg Tablet PO (20:49)
[2021-09-09] MEDS: isosorbide mononitrate ER 30 mg Tablet PO (20:49)
[2021-09-09] MEDS: clopidogrel 75 mg Tablet PO (20:49)
[2021-09-09 21:09] LABS: Partial Thromboplastin Time 26.4 SECONDS (23.9-36.7)
[2021-09-09] MEDS: fentaNYL 50 mcg/mL INJ 2mL 25 MCG IVP (22:02)
--- NOTE | 2021-09-09 22:24 | PC.HD ---
Pt expected to dialyze post CCL intervention, however pt was on a NTG gtt and complaining of chest pain so was not stable for treatment. At 1510, pt's nurse said the pt's pain was not believed to be cardiac as blockages had rec'd intervention and she had rec'd an order to place NTG paste and wean off NTG gtt so pt could come for dialysis treatment. Pt arrived at 1555, admitted to chest pain radiating to scapulae, 04/02. Treatment was initiated and patient dozed through most of treatment and denied further discomfort. Treatment completed without incident, pt tolerated well.
[2021-09-10] VITALS (20 sets, daily range): BP systolic 117–127; BP diastolic 72–83; PULSE 64–87; RESP 12–26; TEMP 36.3–36.6; O2SAT 97–100
--- NOTE | 2021-09-10 00:56 | PC.NURSE ---
Around 2144: Patient c/o of pain prior to sheath removal. Notified Dr. Landis. Orders received, see 2210: PTT 26.4. Vitals stable. Removed sheath to right groin. Held pressure 20 min. Dressed site with 4x4 gauze and transparent dressing. Vitals stable, no drainage or hematoma noted. Patient tolerated procedure well.
[2021-09-10] MEDS: ipratropium-albuterol 3 mL Neb INHALATION ×3 (02:54→21:34)
[2021-09-10] MEDS: duloxetine 20 mg Capsule PO (05:07)
[2021-09-10] MEDS: pantoprazole DR 40 mg Tablet PO (05:07)
[2021-09-10] MEDS: predniSONE 10 mg Tablet PO (05:07)
[2021-09-10] MEDS: aspirin 81 mg EC Tablet PO (05:07)
[2021-09-10] MEDS: nitroglycerin 1 gm/inch oint Pkt 1 INCH TOPICAL ×4 (05:07→22:56)
[2021-09-10 05:44] LABS: Basophils % 0.2 %; Eosinophils % 0.3 %; Hematocrit 26.8 % (42.0-52.0); Hemoglobin 8.4 g/dL (11.7-16.6); Lymphocytes # 0.4 10^3/uL (0.8-4.8); Lymphocytes % 4.4 %; Mean Corpuscular HGB Conc 31.3 g/dL (30.0-36.0); Mean Corpuscular Hemoglobin 29.8 pg (28.0-34.0); Monocytes # 0.8 10^3/uL (0.2-0.9); Monocytes % 8.9 %; Neutrophils # 7.46 10^3/uL (1.8-7.7); Neutrophils % 85.6 %; Nucleated Red Blood Cells % 0 %; Platelet Count 155 10^3/cmm (130-400); Red Blood Count 2.82 10^6/uL (4.1-5.3); Red Cell Distribution Width 15.5 % (12.1-15.1); White Blood Count 8.7 10^3/uL (4.0-10.0)
[2021-09-10 06:07] LABS: Anion Gap 14.6 (5-19); Blood Urea Nitrogen 18 mg/dL (6-20); Calcium 8.2 mg/dL (8.5-10.5); Carbon Dioxide 29 mmol/L (22-29); Chloride 99 mmol/L (98-107); Glomerular Filtration Rate 13.5 mL/min (90-130); Glucose 110 mg/dL (65-115); Osmolality Calculated 291 mOsm/kg (285-295); Potassium 3.6 mmol/L (3.5-5.1); Sodium 139 mmol/L (136-145)
[2021-09-10 06:31] LABS: Glucose Point of Care 137 mg/dL (70-110)
[2021-09-10] MEDS: amlodipine 5 mg Tablet PO (08:01)
[2021-09-10] MEDS: sacubitril/valsartan 24-26 mg Tablet 1 EACH PO ×2 (08:01→17:07)
[2021-09-10] MEDS: pregabalin 75 mg Capsule PO ×2 (08:01→17:07)
[2021-09-10] MEDS: sevelamer 800 mg Tablet 2400 MG PO ×2 (08:01→17:07)
[2021-09-10] MEDS: metoprolol tartrate 25 mg Tablet PO (08:02)
[2021-09-10] MEDS: oxyCODONE 5 mg IR Tab/Cap PO ×2 (08:02→20:55)
--- NOTE | 2021-09-10 08:13 | CT_ITS ---
WS: [id number] CTA OF THE CHEST WITH PULMONARY EMBOLISM PROTOCOL TECHNIQUE: High-resolution contrast enhanced CTA of the chest with coronal and sagittal reformatted i mages with pulmonary embolism protocol. MIP images are also reviewed. CLINICAL INFORMATION: r/o PE COMPARISON: CTA May 19, 2021 DLP: 609.[address] scans at [facility] use at least one of these dose optimization techniques: automated e xposure control; mA and/or kV adjustment per patient size (includes targeted exams where dose is matc hed to clinical indication); or iterative reconstruction. FINDINGS: Proximal main pulmonary arteries are normal. Normal segmental and subsegmental pulmonary arteries. No evidence of pulmonary embolus. Previously described diffuse bilateral pulmonary infiltrates improved compared to previous and nearly resolved. Small left pleural effusion with compressive atelectasis left lower lobe is stable. Subseg mental atelectasis right middle lobe and both lower lobes. Aortic calcification. Coronary calcification. No mediastinal or hilar lymphadenopathy. No axillary ly mphadenopathy. Adrenal glands are normal. Mild thoracic kyphosis with hypertrophic changes. CT/CT angio chest PE protcl [id number] IMPRESSION: 1. No evidence of pulmonary embolus. 2. Previously described pulmonary infiltrates have improved and nearly resolve d. 3. Small left pleural effusion with compressive atelectasis left lower lobe is stable. 4. No mediastinal or hilar lymphadenopathy. 5. No other significant changes from previous.
--- NOTE | 2021-09-10 08:38 | PC.SOCIAL ---
IMM update IMM updated with patient. Copy Pg 2 provided. Verbalized an understanding. Initialled, dated, timed, and placed in chart.
--- NOTE | 2021-09-10 08:39 | P.PN_ITS ---
Subjective Subjective: Interval history: Patient continues to have left shoulder pain, radiating to the left arm and also to the back. Some pain in the anterior chest on the left side. There is more or less persistent pain with waxing and waning. No improvement with the pain medications. CT of the chest was done this morning to evaluate for any PE or dissection. He was not found to have no evidence of PE or dissection. Patient had a intervention of the intermedius artery and PDA of the ostium of first diagonal artery. Medications: Reviewed: Yes Medication Review Details: Current Medications Acetaminophen (Acetaminophen 325 Mg Tablet) 650 mg PO Q6H PRN PRN Reason: Mild/Mod Pain Or Temp >/= 101 Albuterol Sulfate (Albuterol 8 Gm Mdi) 2 puff INHALATION QID.RESPIRATORY PRN PRN Reason: shortness of breath or wheezing Albuterol/Ipratropium (Ipratropium-Albuterol 3 Ml Neb) 3 ml INHALATION Q6H.RESPIRATORY [facility] Last Admin: 09/10/21 08:38 Dose: Not Given Documented by: Amlodipine Besylate (Amlodipine 5 Mg Tablet) 5 mg PO DAILY [facility] Last Admin: 09/10/21 08:01 Dose: 5 mg Documented by: Aspirin (Aspirin 81 Mg Ec Tablet) 81 mg PO QAM [facility] Last Admin: 09/10/21 05:07 Dose: 81 mg Documented by: Atorvastatin Calcium (Atorvastatin 40 Mg Tablet) 40 mg PO BEDTIME [facility] Last Admin: 09/09/21 20:49 Dose: 40 mg Documented by: Azathioprine (Azathioprine 50 Mg Tablet) 0 mg PO 0800,2100 [facility] Last Admin: 09/10/21 08:01 Dose: 25 mg Documented by: Clopidogrel Bisulfate (Clopidogrel 75 Mg Tablet) 75 mg PO BEDTIME [facility] Last Admin: 09/09/21 20:49 Dose: 75 mg Documented by: Dextrose (Dextrose 50% Syringe 50 Ml) 25 ml IVP ONCE PRN; Protocol PRN Reason: hypoglycemia protocol Dextrose (Dextrose 50% Syringe 50 Ml) 50 ml IVP PRN PRN; Protocol PRN Reason: hypoglycemia protocol Duloxetine HCl (Duloxetine 20 Mg Capsule) 20 mg PO QAM [facility] Last Admin: 09/10/21 05:07 Dose: 20 mg Documented by: Fluticasone Propionate (Fluticasone Nasal [place] 16gm Btl) 1 spray INTRANASAL BID PRN PRN Reason: Nasal Congestion Glucagon (Glucagon 1 Mg/Ml Inj 1 Ml) 1 mg IM ONCE PRN; Protocol PRN Reason: Adult Acute Hypoglycemia Prot. Heparin Sodium (Porcine) (Heparin 5,000 Unit/Ml Inj 1 Ml) 0 unit IV PRN PRN; Protocol PRN Reason: Heparin weight-base protocol Last Admin: 09/07/21 22:18 Dose: 4,000 unit Documented by: Heparin Sodium (Porcine) (Heparin 5,000 Unit/Ml Inj 1 Ml) 5,000 unit SUBCUT Q12H [facility] Last Admin: 09/09/21 23:25 Dose: Not Given Documented by: Heparin Sodium/Sodium Chloride (Heparin Drip) 25,000 unit in 500 mls @ 0 mls/hr IV .Q0M [facility]; Protocol Last Titration: 09/08/21 03:30 Dose: 12.16 unit/kg/hr, 19.86 mls/hr Documented by: Dextrose (D5w) 500 mls @ 100 mls/hr IV ONCE PRN; Protocol PRN Reason: Adult Acute Hypoglycemia Prot Insulin Human Lispro (Insulin Lispro 100 Unit/1 Ml) 0 unit SUBCUT WM&BEDTIME [facility]; Protocol Last Admin: 09/10/21 08:03 Dose: Not Given Documented by: Isosorbide Mononitrate (Isosorbide Mononitrate Er 30 Mg Tablet) 30 mg PO BEDTIME [facility] Last Admin: 09/09/21 20:49 Dose: 30 mg Documented by: Ketorolac Tromethamine (Ketorolac 30 Mg/Ml Inj) 15 mg IVP Q6H PRN PRN Reason: MODERATE PAIN Stop: 09/14/21 11:31 Last Admin: 09/09/21 13:19 Dose: 15 mg Documented by: Lidocaine (Lidocaine 5% Patch) 1 patch TOPICAL [id number] [facility] Last Admin: 09/10/21 08:03 Dose: Not Given Documented by: Lidocaine/Prilocaine (Lidocaine-Prilocaine Cream 5 Gm) 0 applic TOPICAL PRN PRN PRN Reason: use as directed over fistula Metoprolol Tartrate (Metoprolol Tartrate 25 Mg Tablet) 25 mg PO DAILY [facility] Last Admin: 09/10/21 08:02 Dose: 25 mg Documented by: Nitroglycerin (Nitroglycerin 0.4 Mg Sublingual Tablet) 0.4 mg SUBLINGUAL Q5M PRN PRN Reason: Chest Pain Last Admin: 09/09/21 09:06 Dose: 1 applic Documented by: Nitroglycerin (Nitroglycerin 1 Gm/Inch Oint Pkt) 1 inch TOPICAL Q6H [facility] Last Admin: 09/10/21 05:07 Dose: 1 inch Documented by: Ondansetron HCl (Ondansetron 2 Mg/Ml Sdv 2 Ml) 4 mg IVP Q8H PRN PRN Reason: vomiting, or N/V if npo Last Admin: 09/08/21 06:19 Dose: 4 mg Documented by: Oxycodone HCl (Oxycodone 5 Mg Ir Tab/Cap) 5 mg PO BID PRN PRN Reason: MODERATE PAIN Last Admin: 09/10/21 08:02 Dose: 5 mg Documented by: Pantoprazole Sodium (Pantoprazole Dr 40 Mg Tablet) [facility] Last Admin: 09/10/21 05:07 Dose: 40 mg Documented by: Prednisone (Prednisone 10 Mg Tablet) [facility] [place] Last Admin: 09/10/21 05:07 Dose: 10 mg Documented by: Pregabalin (Pregabalin 75 Mg Capsule) 75 mg PO BID [facility] Last Admin: 09/10/21 08:01 Dose: 75 mg Documented by: Promethazine HCl (Promethazine 25 Mg Tablet) 12.5 mg PO Q6H PRN PRN Reason: Nausea Sacubitril/Valsartan (Sacubitril/Valsartan 24-26 Mg Tablet) 1 each PO BID [facility] Last Admin: 09/10/21 08:01 Dose: 1 each Documented by: Sevelamer Carbonate (Sevelamer 800 Mg Tablet) 1,600 mg PO BID PRN PRN Reason: LARGE SNACKS Sevelamer Carbonate (Sevelamer 800 Mg Tablet) 2,400 mg PO TIDWM [facility] Last Admin: 09/10/21 08:01 Dose: 2,400 mg Documented by: Vitals/I&O/Wt Last Vital Signs Temp 97.6 F 09/10/21 07:34 Pulse 78 09/10/21 07:34 Resp 18 09/10/21 08:02 BP 124/74 09/10/21 07:34 Pulse Ox 100 09/10/21 08:02 09/09/21 09/10/21 09/10/21 22:59 06:59 14:59 Intake Total 570 / 1030 120 / 1150 Output Total 3351 / 3351 Balance -2781 / -2321 120 / -2201 Weight last 48 hrs Weight 191 lb 3.2 oz Weight 191 lb 9.307 oz Weight 199 lb 3.2 oz Weight 195 lb 1.745 oz Physical Exam Narrative: EXAM NARRATIVE: GENERAL: The patient is alert and oriented times three. Not in any acute distress. HEENT: Minimal pallor. No, icterus or lymphadenopathy.Oral cavity: There are no mucous membrane lesions. NECK: Trachea appears to be central. No masses noted. No JVD or thyromegaly appreciated. RESPIRATORY: Chest is symmetrical. No intercostals muscle retraction or any accessory muscle activation. There is no chest wall tenderness. Breath sounds are heard bilaterally. No rales or rhonchi heard. No evidence of any consolidation. BREASTS: Deferred. HEART: The heart sounds are normal. No S3 or S4. Short systolic murmur the left sternal border and also at the base of the heart. No diastolic murmurs.. No pericardial rub ABDOMEN: No vessel pulsations or distention. No tenderness. No organomegaly appreciated. Bowel sounds are normally heard. : Deferred. RECTAL: Deferred. LYMPHATIC: No lymphadenopathy noted in the neck or groin. EXTREMITIES: No hematoma or bleeding from the right groin. MUSCULOSKELETAL: No acute joint deformities or swelling. SKIN: There are no significant rashes or ecchymosis NEUROPSYCHIATRIC: The patient is alert and oriented x3. Appears to be in a good mood. No tremors or rigidity noted. Data : 09/10/21 04:25 09/10/21 04:25 A&P Assessment and plan (1) Non-ST elevation (NSTEMI) myocardial infarction: Patient status post PCI of the proximal LAD, plain old balloon angioplasty of the ostium of the diagonal, and PCI of the intermedius artery. The etiology of the ongoing chest pain is unclear. No evidence of any aortic dissection or PE based on CTA Status: Acute (2) Atherosclerotic heart disease of [place] coronary artery with other forms of angina pectoris: As mentioned above. We will continue on the current medications. Status: Acute (3) Anemia: Her hemoglobin seems to be stable. Based on the results of the above and patient's clinical progress, further recommendations will be made Thank you for the opportunity to evaluate this patient and make these recommendations continue on the current medications Status: Acute Qualifiers: Anemia type: unspecified type Qualified Code(s): D64.9 - Anemia, unspecified (4) Hemochromatosis: Patient is being followed by Dr. Colon. Status: Acute Qualifiers: Hemochromatosis type: unspecified Qualified Code(s): E83.119 - Hemochromatosis, unspecified (5) Ischemic cardiomyopathy: Since the patient has no evidence of any cardiac decompensation, is advi sed to continue on the current measures. The current medications were reviewed. Hemochromatosis causing liver dysfunction cannot be excluded. Status: Acute (6) Mixed hyperlipidemia: Continue on the current management. Follow-up evaluation as scheduled. Status: Acute Additional A&P Information Most likely the patient may have a nonischemic chest pain. He had at least moderate disease in the ostium of the circumflex artery. Most likely this is not causing any symptoms. However we may do a myocardial perfusion imaging to evaluate for ischemia in the distribution of the circumflex artery. Attestations Medical Necessity Statement*: Patient requires continued hospital stay for close monitoring and further management Coding Level of Care Code Acute Hand Sample Maker for g Fwd History Detailed Exam Detailed Medical Decision Making Moderate Complexity Diagnoses Non-ST elevation (NSTEMI) myocardial infarction I21.4 Atherosclerotic heart disease of [place] coronary artery with other forms of angina pectoris I25.118 Anemia D64.9 Anemia type: unspecified type Hemochromatosis E83.119 Hemochromatosis type: unspecified Ischemic cardiomyopathy I25.5 Mixed hyperlipidemia E78.2
[2021-09-10] MEDS: iodixanol 320 mg/mL 100mL Btl IV (08:48)
--- NOTE | 2021-09-10 09:21 | P.PN_ITS ---
Subjective Subjective: Interval history: He continues to have substernal chest discomfort radiating to his left shoulder. Dialysis went well yesterday and over the last 2 days we have removed 6 L of ultrafiltrate. Blood pressure looks better controlled. No other acute issues today. No extremity edema, no uremic symptoms. Medications: Reviewed: Yes Medication Review Details: Current Medications Acetaminophen (Acetaminophen 325 Mg Tablet) 650 mg PO Q6H PRN PRN Reason: Mild/Mod Pain Or Temp >/= 101 Albuterol Sulfate (Albuterol 8 Gm Mdi) 2 puff INHALATION QID.RESPIRATORY PRN PRN Reason: shortness of breath or wheezing Albuterol/Ipratropium (Ipratropium-Albuterol 3 Ml Neb) 3 ml INHALATION Q6H.RESPIRATORY [facility] Last Admin: 09/10/21 08:38 Dose: Not Given Documented by: Amlodipine Besylate (Amlodipine 5 Mg Tablet) 5 mg PO DAILY [facility] Last Admin: 09/10/21 08:01 Dose: 5 mg Documented by: Aspirin (Aspirin 81 Mg Ec Tablet) 81 mg PO QAM [facility] Last Admin: 09/10/21 05:07 Dose: 81 mg Documented by: Atorvastatin Calcium (Atorvastatin 40 Mg Tablet) 40 mg PO BEDTIME [facility] Last Admin: 09/09/21 20:49 Dose: 40 mg Documented by: Azathioprine (Azathioprine 50 Mg Tablet) 0 mg PO 0800,2100 [facility] Last Admin: 09/10/21 08:01 Dose: 25 mg Documented by: Clopidogrel Bisulfate (Clopidogrel 75 Mg Tablet) 75 mg PO BEDTIME [facility] Last Admin: 09/09/21 20:49 Dose: 75 mg Documented by: Dextrose (Dextrose 50% Syringe 50 Ml) 25 ml IVP ONCE PRN; Protocol PRN Reason: hypoglycemia protocol Dextrose (Dextrose 50% Syringe 50 Ml) 50 ml IVP PRN PRN; Protocol PRN Reason: hypoglycemia protocol Duloxetine HCl (Duloxetine 20 Mg Capsule) 20 mg PO QAM [facility] Last Admin: 09/10/21 05:07 Dose: 20 mg Documented by: Fluticasone Propionate (Fluticasone Nasal [place] 16gm Btl) 1 spray INTRANASAL BID PRN PRN Reason: Nasal Congestion Glucagon (Glucagon 1 Mg/Ml Inj 1 Ml) 1 mg IM ONCE PRN; Protocol PRN Reason: Adult Acute Hypoglycemia Prot. Heparin Sodium (Porcine) (Heparin 5,000 Unit/Ml Inj 1 Ml) 0 unit IV PRN PRN; Protocol PRN Reason: Heparin weight-base protocol Last Admin: 09/07/21 22:18 Dose: 4,000 unit Documented by: Heparin Sodium (Porcine) (Heparin 5,000 Unit/Ml Inj 1 Ml) 5,000 unit SUBCUT Q12H [facility] Last Admin: 09/09/21 23:25 Dose: Not Given Documented by: Heparin Sodium/Sodium Chloride (Heparin Drip) 25,000 unit in 500 mls @ 0 mls/hr IV .Q0M [facility]; Protocol Last Titration: 09/08/21 03:30 Dose: 12.16 unit/kg/hr, 19.86 mls/hr Documented by: Dextrose (D5w) 500 mls @ 100 mls/hr IV ONCE PRN; Protocol PRN Reason: Adult Acute Hypoglycemia Prot Insulin Human Lispro (Insulin Lispro 100 Unit/1 Ml) 0 unit SUBCUT WM&BEDTIME [facility]; Protocol Last Admin: 09/10/21 08:03 Dose: Not Given Documented by: Isosorbide Mononitrate (Isosorbide Mononitrate Er 30 Mg Tablet) 30 mg PO BEDTIME [facility] Last Admin: 09/09/21 20:49 Dose: 30 mg Documented by: Ketorolac Tromethamine (Ketorolac 30 Mg/Ml Inj) 15 mg IVP Q6H PRN PRN Reason: MODERATE PAIN Stop: 09/14/21 11:31 Last Admin: 09/09/21 13:19 Dose: 15 mg Documented by: Lidocaine (Lidocaine 5% Patch) 1 patch TOPICAL [id number] [facility] Last Admin: 09/10/21 08:03 Dose: Not Given Documented by: Lidocaine/Prilocaine (Lidocaine-Prilocaine Cream 5 Gm) 0 applic TOPICAL PRN PRN PRN Reason: use as directed over fistula Metoprolol Tartrate (Metoprolol Tartrate 25 Mg Tablet) 25 mg PO DAILY [facility] Last Admin: 09/10/21 08:02 Dose: 25 mg Documented by: Nitroglycerin (Nitroglycerin 0.4 Mg Sublingual Tablet) 0.4 mg SUBLINGUAL Q5M PRN PRN Reason: Chest Pain Last Admin: 09/09/21 09:06 Dose: 1 applic Documented by: Nitroglycerin (Nitroglycerin 1 Gm/Inch Oint Pkt) 1 inch TOPICAL Q6H [facility] Last Admin: 09/10/21 05:07 Dose: 1 inch Documented by: Ondansetron HCl (Ondansetron 2 Mg/Ml Sdv 2 Ml) 4 mg IVP Q8H PRN PRN Reason: vomiting, or N/V if npo Last Admin: 09/08/21 06:19 Dose: 4 mg Documented by: Oxycodone HCl (Oxycodone 5 Mg Ir Tab/Cap) 5 mg PO BID PRN PRN Reason: MODERATE PAIN Last Admin: 09/10/21 08:02 Dose: 5 mg Documented by: Pantoprazole Sodium (Pantoprazole Dr 40 Mg Tablet) 40 mg PO [facility] Last Admin: 09/10/21 05:07 Dose: 40 mg Documented by: Prednisone (Prednisone 10 Mg Tablet) 10 mg PO [facility] Last Admin: 09/10/21 05:07 Dose: 10 mg Documented by: Pregabalin (Pregabalin 75 Mg Capsule) 75 mg PO BID [facility] Last Admin: 09/10/21 08:01 Dose: 75 mg Documented by: Promethazine HCl (Promethazine 25 Mg Tablet) 12.5 mg PO Q6H PRN PRN Reason: Nausea Sacubitril/Valsartan (Sacubitril/Valsartan 24-26 Mg Tablet) 1 each PO BID [facility] Last Admin: 09/10/21 08:01 Dose: 1 each Documented by: Sevelamer Carbonate (Sevelamer 800 Mg Tablet) 1,600 mg PO BID PRN PRN Reason: LARGE SNACKS Sevelamer Carbonate (Sevelamer 800 Mg Tablet) 2,400 mg PO TIDWM [facility] Last Admin: 09/10/21 08:01 Dose: 2,400 mg Documented by: Vitals/I&O/Wt Last Vital Signs Temp 97.6 F 09/10/21 07:34 Pulse 78 09/10/21 07:34 Resp 18 09/10/21 08:02 BP 124/74 09/10/21 07:34 Pulse Ox 100 09/10/21 08:02 09/09/21 09/10/21 09/10/21 22:59 06:59 14:59 Intake Total 570 / 1030 120 / 1150 Output Total 3351 / 3351 Balance -2781 / -2321 120 / -2201 Weight last 48 hrs Weight 86.727 kg Weight 86.9 kg Weight 90.356 kg Weight 88.5 kg Physical Exam Narrative: EXAM NARRATIVE: Constitutional: Awake, comfortable HEENT: Wet mucosa, no jvp, non icteric Lungs: Bilaterally clear without discernible wheeze, rales in all lung zones CVS: S1 S2, no murmurs Abdo: Soft, BS ok Ext 4: Minimal edema, peripheral perfusion with no cyanosis Neurological: Grossly non-focal Data : 09/10/21 04:25 09/10/21 04:25 A&P Additional A&P Information 1. ESRD We will plan to do dialysis tomorrow Although he got intravenous contrast this morning and may get intravenous contrast this afternoon, there is no acute indication for dialysis. Of note in advanced kidney failure on dialysis of prolonged vintage, IV contrast is of little harm. 3K, UF 3L Dose medication for GFR less than 15 2. CAD POngoing chest pain. Management per cardiology, I see mention of possible repeat angiography. 3. Hemodynamics Blood pressure looks good. 4. Chronic ESRD issues to be addressed as outpatient as part of standard monthly management. Hb drifting down a little and I will watch closely. 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
--- NOTE | 2021-09-10 11:36 | PM.PN ---
Subjective Subjective: Interval history: Status post stent placement on 09/08 and 09/09, patient is still complaining of left-sided substernal chest pain which she describing as stabbing pain, CT requested this morning rule out PE Patient is describing his pain as substernal, sharp, constant which gets worse on deep breathing CT/CT angio chest PE protcl [id number] IMPRESSION: 1. No evidence of pulmonary embolus. 2. Previously described pulmonary infiltrates have improved and nearly resolved. 3. Small left pleural effusion with compressive atelectasis left lower lobe is stable. 4. No mediastinal or hilar lymphadenopathy. 5. No other significant changes from previous. Vitals/I&O/Wt Last Vital Signs Temp 97.4 F L 09/10/21 11:25 Pulse 64 09/10/21 11:25 Resp 22 H 09/10/21 11:25 BP 117/76 09/10/21 11:25 Pulse Ox 99 09/10/21 11:25 09/09/21 09/10/21 09/10/21 22:59 06:59 14:59 Intake Total 570 / 1030 120 / 1150 236 / 236 Output Total 3351 / 3351 Balance -2781 / -2321 120 / -2201 236 / 236 Weight last 48 hrs Weight 86.727 kg Weight 86.9 kg Weight 90.356 kg Weight 88.5 kg Physical Exam Narrative: EXAM NARRATIVE: PT Was complaining of substernal chest pain, while lying supine Hemodynamically stable Had Nitropaste on left arm Awake alert oriented x3 GCS 15 Nonreproducible chest pain Soft abdomen Lower EXTREMITY no edema Mild signs of fluid overload Data : 09/10/21 04:25 09/10/21 04:25 A&P Assessment and plan (1) ESRD (end stage renal disease): Status: Acute (2) CHF NYHA class III (symptoms with mildly strenuous activities): Status: Acute Qualifiers: Congestive heart failure type: combined Congestive heart failure chronicity: acute on chronic Qualified Code(s): I50.43 - Acute on chronic combined systolic (congestive) and diastolic (congestive) heart failure (3) Ischemic cardiomyopathy: Status: Acute (4) Atherosclerotic heart disease of [place] coronary artery with other forms of angina pectoris: Status: Acute (5) Hemochromatosis: Status: Acute Qualifiers: Hemochromatosis type: unspecified Qualified Code(s): E83.119 - Hemochromatosis, unspecified (6) Anemia: Status: Acute Qualifiers: Anemia type: unspecified type Qualified Code(s): D64.9 - Anemia, unspecified (7) Cardiomyopathy: Status: Acute Additional A&P Information Unstable angina/substernal chest pain Stabbing pain Status post 2 drug-eluting stent 09/08 and Patient this morning also complaining of sharp stabbing pain which is constant gets worse on deep breathing, will give 1 dose of Toradol, GI cocktail, CTA CHEST was requested which ruled out pulmonary embolism Lidocaine patch Patient does not have radial radial delay however difficult to interpret with AV fistula in left arm, CTA chest did not show aortic dissection no mediastinal widening no hemodynamic instability Follow-up for further cardiology recommendations, End-stage renal disease Tuesday dialysis Stable anemia No acidosis Hemochromatosis: 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
[2021-09-10 11:43] LABS: Glucose Point of Care 186 mg/dL (70-110)
[2021-09-10] MEDS: lidocaine 2% viscous 15 ML, aluminum-mag hydrox-simethicon 30 ML, sucralfate oral liq 1 GM PO (12:10)
[2021-09-10] MEDS: cyclobenzaprine 10 mg Tablet PO ×3 (12:12→20:55)
[2021-09-10] MEDS: insulin lispro 100 unit/1 mL SUBCUT ×3 (12:13→20:56)
[2021-09-10] MEDS: ketorolac 30 mg/mL INJ 15 MG IVP ×2 (12:14→20:56)
--- NOTE | 2021-09-10 14:25 | CTR_ITS ---
PROCEDURE INFORMATION: Exam: CT Cervical Spine Without Contrast Exam date and time: 09/10/2021 2:25 PM Age: 51 years old Clinical indication: Neck pain; Prior surgery; Additional info: Pain radiating to shouder TECHNIQUE: Imaging protocol: Computed tomography images of the cervical spine without contrast. Radiation optimization: All CT scans at this facility use at least one of these dose optimization techniques: automated exposure control; mA and/or kV adjustment per patient size (includes targeted exams where dose is matched to clinical indication); or iterative reconstruction. COMPARISON: CT angio chest PE protcl [id number] 09/10/2021 8:38 AM RADIATION DOSE METRICS: Total DLP (mGy-cm): 663.35 FINDINGS: Bones/joints: There are degenerative changes throughout the cervical spine with bridging anterior osteophytes at all levels except for the postoperative level . No fracture is identified. Vertebral alignment is within normal limits. Discs/Spinal canal/Neural foramina: There are postsurgical changes of interbody fusion at C5-C6 with instrumentation within the disc space. No acute disc herniation is visualized. Lungs: Lung apices are normal. Soft tissues: Unremarkable. CT/CT cervical spin wo con* [id number] IMPRESSION: 1. Postsurgical changes in the cervical spine. 2. No acute finding Radiation Dose CTDIVOL = (mGy): DLP = 663.35 (mGy-cm)
--- NOTE | 2021-09-10 14:25 | CTR_ITS ---
PROCEDURE INFORMATION: Exam: CT Lumbar Spine Without Contrast Exam date and time: 09/10/2021 2:25 PM Age: 51 years old Clinical indication: Low back pain; Prior surgery; Additional info: Pain in shoulder TECHNIQUE: Imaging protocol: Computed tomography images of the lumbar spine without contrast. Radiation optimization: All CT scans at this facility use at least one of these dose optimization techniques: automated exposure control; mA and/or kV adjustment per patient size (includes targeted exams where dose is matched to clinical indication); or iterative reconstruction. COMPARISON: MR lumbar spine wo con* [id number] 03/10/2021 3:46 PM RADIATION DOSE METRICS: Total DLP (mGy-cm): 2384.31 FINDINGS: Vertebrae: No fracture is identified. Discs/Spinal canal/Neural foramina: There is diffuse posterior bulging of the L4-L5 disc with some eccentric posterior protrusion towards the left involving the para median and subarticular zones which is a change compared with the prior MRI examination. There is also degenerative change in the facet joints bilaterally with hypertrophy of ligamentum flavum. This causes severe central canal stenosis narrowing the sagittal diameter of the canal to less than 7 mm . The disc may be impinging upon the left L5 or S1 nerve roots. There is mild diffuse bulging of the L5-S1 disc without focal herniation or significant stenosis. Soft tissues: Unremarkable. CT/CT lumbar spine wo con* [id number] IMPRESSION: Degenerative changes in the lower lumbar spine with new bulging and protruding disc at L4-L5 causing severe central canal stenosis. Radiation Dose CTDIVOL = (mGy): DLP = 2384.31 (mGy-cm)
--- NOTE | 2021-09-10 14:27 | ECG_ITS ---
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 Interpretive Statements NAME OF STUDY: LEXISCAN SESTAMIBI STRESS TEST INDICATION: Angina, PROCEDURE: At the baseline, the EKG revealed diffuse nonspecific ST-T changes. The baseline blood pressure was 126/81 mm Hg with a heart rate of 71 beats/min. Lexiscan was infused over a period of 20 seconds. A total of 0.4 milligrams of Lexiscan was infused. The stress phase was continued for a total of 5 minutes. Heart rate at the end of the stress phase was 83 with a blood pressure 125/75. The EKG at the peak infusion revealed no significant changes. Sestamibi was injected 20 seconds after the Lexiscan infusion. Blood pressure at the end of the recovery phase was 128/71 with a heart rate of 78 per minute. CONCLUSION: 1. No significant EKG changes with the LexiScan infusion 2. No LexiScan induced chest pain or cardiac arrhythmia 3. Normal blood pressure and heart rate response 4. Sestamibi/sestamibi perfusion scan pending; see separate report. 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 [id number]
[2021-09-10 19:08] LABS: Glucose Point of Care 165 mg/dL (70-110)
--- NOTE | 2021-09-10 19:36 | PC.NURSE ---
Received report from DONAL Gallardo. Patient resting in bed watching TV. C/o pain 5/10 to medial chest. Denies other needs or complaints. Assessment completed as documented. No other distress observed.
[2021-09-10 20:15] LABS: Glucose Point of Care 149 mg/dL (70-110)
[2021-09-10] MEDS: isosorbide mononitrate ER 30 mg Tablet PO (20:55)
[2021-09-10] MEDS: clopidogrel 75 mg Tablet PO (20:55)
[2021-09-10] MEDS: atorvastatin 40 mg Tablet PO (20:55)
[2021-09-11] VITALS (17 sets, daily range): BP systolic 109–149; BP diastolic 61–86; PULSE 63–81; RESP 8–22; TEMP 36.2–36.7; O2SAT 92–100
--- NOTE | 2021-09-11 | NMCV_ITS ---
NM dipesh perf SPECT r/s* [id number] Marlon Dorantes Age: 51 Gender: M : 1970 Exam Date: 09/11/2021 07:04 Ordering Phys: Kei Solitario MD Technologist: MARCOS Parsons Exam Location: [facility] Indications: CHEST PAIN STRESS TEST Please [facility] IMAGE PROTOCOL Rest/Stress 1 Lexiscan Day Radiopharmaceutical Dose (mCi) Administration Site Administered by Rest: Tc-99m 10.8 IV MARCOS More Sestamibi Stress:Tc-99m 32.9 IV MARCOS Parsons Sestamibi Rest: 11-Sep-2021 60 Discovery 630 Stress: 11-Sep-2021 30 Discovery 630 0.4mg Lexiscan. Images obtained in supine and prone position. SPECT RESULTS Technical Quality: Excellent Raw Data Analysis: Normal Image Corrections: No attenuation or motion correction applied Summed Stress Score: 10 Summed Rest Score: 1 Summed Difference Score: 9 PERFUSION FINDINGS Moderate area of moderately decreased tracer uptake in the inferior, inferolateral and apical lateral regions. Significant reversibility was noted in this region at rest. FUNCTIONAL RESULTS (calculated via Gated SPECT) Stress Image LV EF (%): 31 Stress EDV (mL):278 TID: 0.83 Stress ESV (mL):191 FUNCTIONAL FINDINGS: Severe diffuse hypokinesia of the left ventricle, more so of the septum and the apex IMPRESSIONS 1. Moderate area of moderately decreased tracer uptake in the inferior, inferolateral and apical lateral regions with a significant reversibility, suggestive of ischemia in the distribution of the left circumflex/right coronary artery. 2. Moderately dilated LV cavity with end-systolic volume of 191 mL. 3. LV ejection fraction 31% 4. Segmental wall motion analysis revealing diffuse hypokinesia left ventricle, more so of the apex No similar previous studies are available for comparison Dr Isauro Landis MD FAC (Electronically Signed) Final Date: 11 September 2021 10:25 S
[2021-09-11] MEDS: ipratropium-albuterol 3 mL Neb INHALATION ×3 (02:31→20:12)
[2021-09-11 02:48] LABS: Basophils % 0.3 %; Eosinophils # 0.1 10^3/uL (0.0-0.8); Eosinophils % 1.5 %; Hematocrit 26.1 % (42.0-52.0); Hemoglobin 8.2 g/dL (11.7-16.6); Lymphocytes # 0.4 10^3/uL (0.8-4.8); Lymphocytes % 5.4 %; Mean Corpuscular HGB Conc 31.4 g/dL (30.0-36.0); Mean Corpuscular Hemoglobin 30.1 pg (28.0-34.0); Mean Platelet Volume 9.5 fL (7.4-10.4); Monocytes # 0.7 10^3/uL (0.2-0.9); Monocytes % 8.8 %; Neutrophils # 6.53 10^3/uL (1.8-7.7); Neutrophils % 83.6 %; Nucleated Red Blood Cells % 0 %; Platelet Count 146 10^3/cmm (130-400); Red Blood Count 2.72 10^6/uL (4.1-5.3); Red Cell Distribution Width 15.9 % (12.1-15.1); White Blood Count 7.8 10^3/uL (4.0-10.0)
[2021-09-11 03:15] LABS: Anion Gap 17.1 (5-19); Blood Urea Nitrogen 33 mg/dL (6-20); Calcium 8.1 mg/dL (8.5-10.5); Carbon Dioxide 28 mmol/L (22-29); Chloride 97 mmol/L (98-107); Glomerular Filtration Rate 8.3 mL/min (90-130); Glucose 99 mg/dL (65-115); Osmolality Calculated 293 mOsm/kg (285-295); Potassium 4.1 mmol/L (3.5-5.1); Sodium 138 mmol/L (136-145)
[2021-09-11] MEDS: nitroglycerin 1 gm/inch oint Pkt 1 INCH TOPICAL ×4 (05:07→23:23)
[2021-09-11] MEDS: predniSONE 10 mg Tablet PO (05:07)
[2021-09-11] MEDS: duloxetine 20 mg Capsule PO (05:07)
[2021-09-11] MEDS: aspirin 81 mg EC Tablet PO (05:07)
[2021-09-11] MEDS: pantoprazole DR 40 mg Tablet PO (05:07)
--- NOTE | 2021-09-11 06:03 | PC.NURSE ---
Shift Note Frequent safety and comfort rounds continue. Orders and/or nursing care completed as indicated. Patient monitored for response to intervention and treatment(s). Education provided includes nitropaste. Patient verbalized complete understanding. Patient reports sleeping better last night. Denies pain this morning. No distress observed. Will continue to monitor.
[2021-09-11 06:13] LABS: Glucose Point of Care 101 mg/dL (70-110)
[2021-09-11] MEDS: regadenoson 0.4 Mg/5 ml Syringe IVP (07:53)
[2021-09-11] MEDS: amlodipine 5 mg Tablet PO (09:14)
[2021-09-11] MEDS: sacubitril/valsartan 24-26 mg Tablet 1 EACH PO ×2 (09:14→17:43)
[2021-09-11] MEDS: cyclobenzaprine 10 mg Tablet PO ×3 (09:14→21:03)
[2021-09-11] MEDS: pregabalin 75 mg Capsule PO ×2 (09:15→17:44)
[2021-09-11] MEDS: fluticasone nasal spray 16gm Btl 1 SPRAY INTRANASAL (09:17)
[2021-09-11] MEDS: oxyCODONE 5 mg IR Tab/Cap PO ×2 (09:22→17:43)
[2021-09-11] MEDS: ketorolac 30 mg/mL INJ 15 MG IVP ×2 (10:01→21:36)
--- NOTE | 2021-09-11 10:50 | P.PN_ITS ---
Subjective Subjective: Interval history: Patient had a myocardial perfusion imaging today. He was found to have a moderate area of moderate ischemia in the distribution circumflex/right coronary artery. He continues to have persistent chest pain. During the stress test, he did not have any worsening of chest pain. Medications: Reviewed: Yes Medication Review Details: Current Medications Acetaminophen (Acetaminophen 325 Mg Tablet) 650 mg PO Q6H PRN PRN Reason: Mild/Mod Pain Or Temp >/= 101 Albuterol Sulfate (Albuterol 8 Gm Mdi) 2 puff INHALATION QID.RESPIRATORY PRN PRN Reason: shortness of breath or wheezing Albuterol/Ipratropium (Ipratropium-Albuterol 3 Ml Neb) 3 ml INHALATION Q6H.RESPIRATORY [facility] Last Admin: 09/11/21 09:59 Dose: 3 ml Documented by: Aminophylline (Aminophylline 25 Mg/Ml Sdv 10 Ml) 25 mg IVP Q2M PRN PRN Reason: see dose instructions Stop: 09/12/21 07:13 Amlodipine Besylate (Amlodipine 5 Mg Tablet) 5 mg PO DAILY [facility] Last Admin: 09/11/21 09:14 Dose: 5 mg Documented by: Aspirin (Aspirin 81 Mg Ec Tablet) 81 mg PO QAM [facility] Last Admin: 09/11/21 05:07 Dose: 81 mg Documented by: Atorvastatin Calcium (Atorvastatin 40 Mg Tablet) 40 mg PO BEDTIME [facility] Last Admin: 09/10/21 20:55 Dose: 40 mg Documented by: Azathioprine (Azathioprine 50 Mg Tablet) 25 mg PO 0800 [facility] Last Admin: 09/11/21 10:35 Dose: 25 mg Documented by: Azathioprine (Azathioprine 50 Mg Tablet) 50 mg PO 2100 [facility] Clopidogrel Bisulfate (Clopidogrel 75 Mg Tablet) 75 mg PO BEDTIME [facility] Last Admin: 09/10/21 20:55 Dose: 75 mg Documented by: Cyclobenzaprine HCl (Cyclobenzaprine 10 Mg Tablet) 10 mg PO TID [facility] Last Admin: 09/11/21 09:14 Dose: 10 mg Documented by: Dextrose (Dextrose 50% Syringe 50 Ml) 25 ml IVP ONCE PRN; Protocol PRN Reason: hypoglycemia protocol Dextrose (Dextrose 50% Syringe 50 Ml) 50 ml IVP PRN PRN; Protocol PRN Reason: hypoglycemia protocol Duloxetine HCl (Duloxetine 20 Mg Capsule) 20 mg PO QAM [facility] Last Admin: 09/11/21 05:07 Dose: 20 mg Documented by: Fluticasone Propionate (Fluticasone Nasal [place] 16gm Btl) 1 spray INTRANASAL BID PRN PRN Reason: Nasal Congestion Last Admin: 09/11/21 09:17 Dose: 1 spray Documented by: Glucagon (Glucagon 1 Mg/Ml Inj 1 Ml) 1 mg IM ONCE PRN; Protocol PRN Reason: Adult Acute Hypoglycemia Prot. Heparin Sodium (Porcine) (Heparin 5,000 Unit/Ml Inj 1 Ml) 0 unit IV PRN PRN; Protocol PRN Reason: Heparin weight-base protocol Last Admin: 09/07/21 22:18 Dose: 4,000 unit Documented by: Heparin Sodium (Porcine) (Heparin 5,000 Unit/Ml Inj 1 Ml) 5,000 unit SUBCUT Q12H [facility] Last Admin: 09/10/21 22:02 Dose: Not Given Documented by: Heparin Sodium/Sodium Chloride (Heparin Drip) 25,000 unit in 500 mls @ 0 mls/hr IV .Q0M [facility]; Protocol Last Titration: 09/08/21 03:30 Dose: 12.16 unit/kg/hr, 19.86 mls/hr Documented by: Dextrose (D5w) 500 mls @ 100 mls/hr IV ONCE PRN; Protocol PRN Reason: Adult Acute Hypoglycemia Prot Insulin Human Lispro (Insulin Lispro 100 Unit/1 Ml) 0 unit SUBCUT WM&BEDTIME [facility]; Protocol Last Admin: 09/11/21 09:47 Dose: Not Given Documented by: Isosorbide Mononitrate (Isosorbide Mononitrate Er 60 Mg Tablet) 60 mg PO DAILY [facility] Ketorolac Tromethamine (Ketorolac 30 Mg/Ml Inj) 15 mg IVP Q6H PRN PRN Reason: MODERATE PAIN Stop: 09/14/21 11:31 Last Admin: 09/11/21 10:01 Dose: 15 mg Documented by: Lidocaine (Lidocaine 5% Patch) 1 patch TOPICAL [id number] [facility] Last Admin: 09/11/21 09:48 Dose: Not Given Documented by: Lidocaine/Prilocaine (Lidocaine-Prilocaine Cream 5 Gm) 0 applic TOPICAL PRN PRN PRN Reason: use as directed over fistula Metoprolol Tartrate (Metoprolol Tartrate 25 Mg Tablet) 25 mg PO DAILY [facility] Last Admin: 09/10/21 08:02 Dose: 25 mg Documented by: Nitroglycerin (Nitroglycerin 0.4 Mg Sublingual Tablet) 0.4 mg SUBLINGUAL Q5M PRN PRN Reason: Chest Pain Last Admin: 09/09/21 09:06 Dose: 1 applic Documented by: Nitroglycerin (Nitroglycerin 1 Gm/Inch Oint Pkt) 1 inch TOPICAL Q6H [facility] Last Admin: 09/11/21 05:07 Dose: 1 inch Documented by: Nitroglycerin (Nitroglycerin 0.4 Mg Sublingual Tablet) 0.4 mg SUBLINGUAL Q5M PRN PRN Reason: CHEST PAIN Stop: 09/12/21 07:13 Ondansetron HCl (Ondansetron 2 Mg/Ml Sdv 2 Ml) 4 mg IVP Q8H PRN PRN Reason: vomiting, or N/V if npo Last Admin: 09/08/21 06:19 Dose: 4 mg Documented by: Ondansetron HCl (Ondansetron 2 Mg/Ml Sdv 2 Ml) 4 mg IVP Q2M PRN PRN Reason: NAUSEA Oxycodone HCl (Oxycodone 5 Mg Ir Tab/Cap) 5 mg PO BID PRN PRN Reason: MODERATE PAIN Last Admin: 09/11/21 09:22 Dose: 5 mg Documented by: Pantoprazole Sodium (Pantoprazole Dr 40 Mg Tablet) 40 mg PO QAM [facility] Last Admin: 09/11/21 05:07 Dose: 40 mg Documented by: Prednisone (Prednisone 10 Mg Tablet) 10 mg PO QAM [facility] Last Admin: 09/11/21 05:07 Dose: 10 mg Documented by: Pregabalin (Pregabalin 75 Mg Capsule) 75 mg PO BID [facility] Last Admin: 09/11/21 09:15 Dose: 75 mg Documented by: Promethazine HCl (Promethazine 25 Mg Tablet) 12.5 mg PO Q6H PRN PRN Reason: Nausea Sacubitril/Valsartan (Sacubitril/Valsartan 24-26 Mg Tablet) 1 each PO BID [facility] Last Admin: 09/11/21 09:14 Dose: 1 each Documented by: Sevelamer Carbonate (Sevelamer 800 Mg Tablet) 1,600 mg PO BID PRN PRN Reason: LARGE SNACKS Sevelamer Carbonate (Sevelamer 800 Mg Tablet) 2,400 mg PO TIDWM [facility] Last Admin: 09/11/21 09:48 Dose: Not Given Documented by: Vitals/I&O/Wt Last Vital Signs Temp 97.1 F L 09/11/21 08:00 Pulse 71 09/11/21 10:00 Resp 20 H 09/11/21 10:00 BP 128/71 09/11/21 08:04 Pulse Ox 96 09/11/21 10:00 09/10/21 09/11/21 09/11/21 22:59 06:59 14:59 Intake Total 850 / 1086 Output Total 0 / 0 Balance 850 / 1086 Weight last 48 hrs Weight 191 lb 3.2 oz Weight 191 lb 9.307 oz Physical Exam Narrative: EXAM NARRATIVE: GENERAL: The patient is alert and oriented times three. Not in any acute distress. HEENT: Minimal pallor. No, icterus or lymphadenopathy.Oral cavity: There are no mucous membrane lesions. NECK: Trachea appears to be central. No masses noted. No JVD or thyromegaly appreciated. RESPIRATORY: Chest is symmetrical. No intercostals muscle retraction or any accessory muscle activation. There is no chest wall tenderness. Breath sounds are heard bilaterally. No rales or rhonchi heard. No evidence of any consoli dation. BREASTS: Deferred. HEART: The heart sounds are normal. No S3 or S4. Short systolic murmur the left sternal border and also at the base of the heart. No diastolic murmurs.. No pericardial rub ABDOMEN: No vessel pulsations or distention. No tenderness. No organomegaly appreciated. Bowel sounds are normally heard. : Deferred. RECTAL: Deferred. LYMPHATIC: No lymphadenopathy noted in the neck or groin. EXTREMITIES: No hematoma or bleeding from the right groin. MUSCULOSKELETAL: No acute joint deformities or swelling. SKIN: There are no significant rashes or ecchymosis NEUROPSYCHIATRIC: The patient is alert and oriented x3. Appears to be in a good mood. No tremors or rigidity noted. Data : 09/11/21 02:26 09/11/21 02:26 A&P Assessment and plan (1) Atypical chest pain: The etiology of the ongoing chest pain is not very clear. Apparently he did not have any chest pain with the Lexiscan infusion. However the perfusion scan is suggestive of ischemia in the distribution of the right coronary artery/circumflex artery. I reviewed and discussed this finding with Dr. Gallegos. Since the lesion the proximal/ostial circumflex artery appeared to be moderate and stable it was decided to hold off on any further intervention at this point. We will try to optimize his medical treatment. If the pain does not relieve, we may consider bringing him back to do further intervention Status: Acute (2) Atherosclerotic heart disease of [place] coronary artery with other forms of angina pectoris: Patient status post PCI of the proximal LAD, plain old balloon angioplasty of the ostium of the diagonal, and PCI of the intermedius artery. The etiology of the ongoing chest pain is unclear. No evidence of any aortic dissection or PE based on CTA Status: Acute (3) Anemia: Her hemoglobin seems to be stable. Based on the results of the above and patient's clinical progress, further recommendations will be made Thank you for the opportunity to evaluate this patient and make these recommendations continue on the current medications Status: Acute Qualifiers: Anemia type: unspecified type Qualified Code(s): D64.9 - Anemia, unspecified (4) Hemochromatosis: Patient is being followed by Dr. Colon. Status: Acute Qualifiers: Hemochromatosis type: unspecified Qualified Code(s): E83.119 - Hemochromatosis, unspecified (5) Ischemic cardiomyopathy: Since the patient has no evidence of any cardiac decompensation, is advised to continue on the current measures. The current medications were reviewed. Hemochromatosis causing liver dysfunction cannot be excluded. Status: Acute (6) Mixed hyperlipidemia: Continue on the current management. Follow-up evaluation as scheduled. Status: Acute Additional A&P Information Based on this patient's clinical progress, further recommendations will be made. 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
[2021-09-11] MEDS: isosorbide mononitrate ER 60 mg Tablet PO (10:54)
--- NOTE | 2021-09-11 11:03 | P.DS_ITS ---
Discharge Providers Date of Admission: 09/07/21 19:28 Date of Discharge: September 11, 2021 Attending Provider at Admission: Sailaja Carvajal MD Attending Provider at Discharge: Kei Solitario MD Primary Care Provider: Michael Eubanks DO Diagnoses at Discharge Discharge Diagnosis (1) Non-ST elevation (NSTEMI) myocardial infarction: Status: Acute (2) Atherosclerotic heart disease of [place] coronary artery with other forms of angina pectoris: Status: Acute (3) Anemia: Status: Acute Qualifiers: Anemia type: unspecified type Qualified Code(s): D64.9 - Anemia, unspecified (4) Hemochromatosis: Status: Acute Qualifiers: Hemochromatosis type: unspecified Qualified Code(s): E83.119 - Hemochromatosis, unspecified (5) Ischemic cardiomyopathy: Status: Acute (6) Mixed hyperlipidemia: Status: Acute Reason for Visit Reason for Visit: CP Discharge Data Data Completed and Pending: Completed Studies During Hospitalization Category Date Time Status CT angio chest PE protcl 63586 Rout ine Cat Scan 09/10/21 08:[address] cervical spin wo con* [id number] Rout ine Cat Scan 09/10/21 14:[address] lumbar spine w o con* [id number] Routi ne Cat Scan 09/10/21 14:25 Completed Sestamibi Stress Test Request Routi ne Exams 09/10/21 14:27 Draft XR chest 1V melva ble [id number] Stat Exams 09/07/21 15:58 Completed NM dipesh perf SPECT r/s* [id number] Routin e Nuc Med 09/11/21 Completed CV. echo limited [id number] Routine Ultrasound 09/08/21 23:20 Completed CV. echo limited [id number] Stat Ultrasound 09/09/21 10:24 Completed Pending at discharge Category Date Time Status [employer] [employer] DEAN request for service Routin e Exams 09/08/21 09:51 Taken E[employer]MENT SERVICES DEAN request for service Routin e Exams 09/09/21 09:31 Taken Labs from last 24 hours 09/11/21 09/11/21 09/11/21 06:03 02:26 02:26 WBC 7.8 RBC 2.72 L Hgb 8.2 L Hct 26.1 L MCV 96.0 H MCH 30.1 MCHC 31.4 RDW 15.9 H Plt Count 146 MPV 9.5 Neut % (Auto) 83.6 Lymph % (Auto) 5.4 [place] % (Auto) 8.8 Eos % (Auto) 1.5 Baso % (Auto) 0.3 Neut # (Auto) 6.53 Lymph # (Auto) 0.4 L [place] # (Auto) 0.7 Eos # (Auto) 0.1 Baso # (Auto) 0.0 Nucleated RBC % (a uto) 0 Nucleated RBCs # 0.0 Sodium 138 Potassium 4.1 Chloride 97 L Carbon Dioxide 28 Anion Gap 17.1 BUN 33 H Creatinine 7.0 H* D GFR Calculation 8.3 L Glucose 99 POC Glucose 101 Calculated Osmolal ity 293 Calcium 8.1 L 09/10/21 09/10/21 09/10/21 19:45 17:06 11:28 WBC RBC Hgb Hct MCV MCH MCHC RDW Plt Count MPV Neut % (Auto) Lymph % (Auto) [place] % (Auto) Eos % (Auto) Baso % (Auto) Neut # (Auto) Lymph # (Auto) [place] # (Auto) Eos # (Auto) Baso # (Auto) Nucleated RBC % (a uto) Nucleated RBCs # Sodium Potassium Chloride Carbon Dioxide Anion Gap BUN Creatinine GFR Calculation Glucose POC Glucose 149 H 165 H 186 H Calculated Osmolal ity Calcium Vitals: Last Vital Signs Temp 97.1 F L 09/11/21 08:00 Pulse 71 09/11/21 10:00 Resp 20 H 09/11/21 10:00 BP 128/71 09/11/21 08:04 Pulse Ox 96 09/11/21 10:00 Discharge Plan Discharge Patient Disposition: Home Condition: Stable Prescriptions: New isosorbide mononitrate 60 mg tablet extended release 24 hr 60 mg PO DAILY Qty: 90 RF: 1 Continued promethazine 12.5 mg tablet 12.5 mg PO Q6H PRN (Reason: Nausea) RF: 0 albuterol sulfate 90 mcg/actuation HFA aerosol inhaler 2 puff inhalation QID PRN (Reason: shortness of breath or wheezing) 30 Days Qty: 8.5 RF: 2 nitroglycerin [Nitrostat] 0.4 mg tablet, sublingual 0.4 mg SUBLINGUAL Q5M PRN (Reason: Chest Pain) RF: 0 pregabalin [Lyrica] 75 mg capsule 75 mg PO BID RF: 0 fluticasone propionate [Flonase Allergy Relief] 50 mcg/actuation spray,suspension 1 spray intranasal BID PRN (Reason: Nasal Congestion) RF: 0 lidocaine-prilocaine 2.5-2.5 % cream See Rx Instructions .ROUTE .COMPLEX RF: 0 sevelamer HCl 800 mg tablet See Rx Instructions .ROUTE .COMPLEX RF: 0 azathioprine 50 mg tablet See Rx Instructions .ROUTE .COMPLEX RF: 0 pantoprazole 40 mg tablet,delayed release (DR/EC) 40 mg PO QAM RF: 0 oxycodone 5 mg tablet 5 mg PO BID PRN (Reason: Pain) RF: 0 prednisone 10 mg tablet 10 mg PO QAM RF: 0 duloxetine 20 mg capsule,delayed release(DR/EC) 20 mg PO QAM RF: 0 Entresto 24-26 mg Tablet 1 tab PO BID Qty: 90 RF: 0 aspirin 81 mg tablet,delayed release (DR/EC) 81 mg PO QAM Qty: 30 RF: 3 atorvastatin 40 mg Tablet 40 mg PO BEDTIME Qty: 90 RF: 3 Changed metoprolol tartrate 50 mg tablet 25 mg PO BIDWMEAL Qty: 60 RF: 2 clopidogrel 75 mg tablet 75 mg PO BEDTIME Qty: 30 RF: 3 Discontinued isosorbide mononitrate 30 mg tablet extended release 24 hr 30 mg PO BEDTIME RF: 0 Discharge Diet: Cardiac Discharge Activity: Increase activity as tolerated Patient Instructions: Angina (DC), Coronary Angioplasty (DC), Opioid Safety Discharge Attestations Status at Discharge: Cognitive status at discharge: cognitively intact , Behavioral status at discharge: cooperative and independent in ADL's , Coding Level of Care Code Acute Chg FW DC note Diagnoses Non-ST elevation (NSTEMI) myocardial infarction I21.4 Atherosclerotic heart disease of [place] coronary artery with other forms of angina pectoris I25.118 Anemia D64.9 Anemia type: unspecified type Hemochromatosis E83.119 Hemochromatosis type: unspecified Ischemic cardiomyopathy I25.5 Mixed hyperlipidemia E78.2
--- NOTE | 2021-09-11 13:56 | P.PN_ITS ---
Subjective Subjective: Interval history: Mr. Dorantes continues to complain of substernal chest pain. He is currently seen and examined on hemodialysis today. Tolerating the therapy well. Subjective shortness of breath. No extremity edema and no other features of hypervolemia. No uremic symptoms. Dialysis and hemodynamic parameters reviewed. Medications: Reviewed: Yes Medication Review Details: Current Medications Acetaminophen (Acetaminophen 325 Mg Tablet) 650 mg PO Q6H PRN PRN Reason: Mild/Mod Pain Or Temp >/= 101 Albuterol Sulfate (Albuterol 8 Gm Mdi) 2 puff INHALATION QID.RESPIRATORY PRN PRN Reason: shortness of breath or wheezing Albuterol/Ipratropium (Ipratropium-Albuterol 3 Ml Neb) 3 ml INHALATION Q6H.RESPIRATORY [facility] Last Admin: 09/11/21 09:59 Dose: 3 ml Documented by: Aminophylline (Aminophylline 25 Mg/Ml Sdv 10 Ml) 25 mg IVP Q2M PRN PRN Reason: see dose instructions Stop: 09/12/21 07:13 Amlodipine Besylate (Amlodipine 5 Mg Tablet) 5 mg PO DAILY [facility] Last Admin: 09/11/21 09:14 Dose: 5 mg Documented by: Aspirin (Aspirin 81 Mg Ec Tablet) 81 mg PO QAM [facility] Last Admin: 09/11/21 05:07 Dose: 81 mg Documented by: Atorvastatin Calcium (Atorvastatin 40 Mg Tablet) 40 mg PO BEDTIME [facility] Last Admin: 09/10/21 20:55 Dose: 40 mg Documented by: Azathioprine (Azathioprine 50 Mg Tablet) 25 mg PO 0800 [facility] Last Admin: 09/11/21 10:35 Dose: 25 mg Documented by: Azathioprine (Azathioprine 50 Mg Tablet) 50 mg PO 2100 [facility] Clopidogrel Bisulfate (Clopidogrel 75 Mg Tablet) 75 mg PO BEDTIME [facility] Last Admin: 09/10/21 20:55 Dose: 75 mg Documented by: Cyclobenzaprine HCl (Cyclobenzaprine 10 Mg Tablet) 10 mg PO TID [facility] Last Admin: 09/11/21 09:14 Dose: 10 mg Documented by: Dextrose (Dextrose 50% Syringe 50 Ml) 25 ml IVP ONCE PRN; Protocol PRN Reason: hypoglycemia protocol Dextrose (Dextrose 50% Syringe 50 Ml) 50 ml IVP PRN PRN; Protocol PRN Reason: hypoglycemia protocol Duloxetine HCl (Duloxetine 20 Mg Capsule) 20 mg PO QAM [facility] Last Admin: 09/11/21 05:07 Dose: 20 mg Documented by: Fluticasone Propionate (Fluticasone Nasal [place] 16gm Btl) 1 spray INTRANASAL BID PRN PRN Reason: Nasal Congestion Last Admin: 09/11/21 09:17 Dose: 1 spray Documented by: Glucagon (Glucagon 1 Mg/Ml Inj 1 Ml) 1 mg IM ONCE PRN; Protocol PRN Reason: Adult Acute Hypoglycemia Prot. Heparin Sodium (Porcine) (Heparin 5,000 Unit/Ml Inj 1 Ml) 0 unit IV PRN PRN; Protocol PRN Reason: Heparin weight-base protocol Last Admin: 09/07/21 22:18 Dose: 4,000 unit Documented by: Heparin Sodium (Porcine) (Heparin 5,000 Unit/Ml Inj 1 Ml) 5,000 unit SUBCUT Q12H [facility] Last Admin: 09/10/21 22:02 Dose: Not Given Documented by: Heparin Sodium/Sodium Chloride (Heparin Drip) 25,000 unit in 500 mls @ 0 mls/hr IV .Q0M [facility]; Protocol Last Titration: 09/08/21 03:30 Dose: 12.16 unit/kg/hr, 19.86 mls/hr Documented by: Dextrose (D5w) 500 mls @ 100 mls/hr IV ONCE PRN; Protocol PRN Reason: Adult Acute Hypoglycemia Prot Insulin Human Lispro (Insulin Lispro 100 Unit/1 Ml) 0 unit SUBCUT WM&BEDTIME [facility]; Protocol Last Admin: 09/11/21 09:47 Dose: Not Given Documented by: Isosorbide Mononitrate (Isosorbide Mononitrate Er 60 Mg Tablet) 60 mg PO DAILY [facility] Ketorolac Tromethamine (Ketorolac 30 Mg/Ml Inj) 15 mg IVP Q6H PRN PRN Reason: MODERATE PAIN Stop: 09/14/21 11:31 Last Admin: 09/11/21 10:01 Dose: 15 mg Documented by: Lidocaine (Lidocaine 5% Patch) 1 patch TOPICAL [id number] [facility] Last Admin: 09/11/21 09:48 Dose: Not Given Documented by: Lidocaine/Prilocaine (Lidocaine-Prilocaine Cream 5 Gm) 0 applic TOPICAL PRN PRN PRN Reason: use as directed over fistula Metoprolol Tartrate (Metoprolol Tartrate 25 Mg Tablet) 25 mg PO DAILY [facility] Last Admin: 09/10/21 08:02 Dose: 25 mg Documented by: Nitroglycerin (Nitroglycerin 0.4 Mg Sublingual Tablet) 0.4 mg SUBLINGUAL Q5M PRN PRN Reason: Chest Pain Last Admin: 09/09/21 09:06 Dose: 1 applic Documented by: Nitroglycerin (Nitroglycerin 1 Gm/Inch Oint Pkt) 1 inch TOPICAL Q6H [facility] Last Admin: 09/11/21 05:07 Dose: 1 inch Documented by: Nitroglycerin (Nitroglycerin 0.4 Mg Sublingual Tablet) 0.4 mg SUBLINGUAL Q5M PRN PRN Reason: CHEST PAIN Stop: 09/12/21 07:13 Ondansetron HCl (Ondansetron 2 Mg/Ml Sdv 2 Ml) 4 mg IVP Q8H PRN PRN Reason: vomiting, or N/V if npo Last Admin: 09/08/21 06:19 Dose: 4 mg Documented by: Ondansetron HCl (Ondansetron 2 Mg/Ml Sdv 2 Ml) 4 mg IVP Q2M PRN PRN Reason: NAUSEA Oxycodone HCl (Oxycodone 5 Mg Ir Tab/Cap) 5 mg PO BID PRN PRN Reason: MODERATE PAIN Last Admin: 09/11/21 09:22 Dose: 5 mg Documented by: Pantoprazole Sodium (Pantoprazole Dr 40 Mg Tablet) 40 mg PO QAM [facility] Last Admin: 09/11/21 05:07 Dose: 40 mg Documented by: Prednisone (Prednisone 10 Mg Tablet) 10 mg PO QAM [facility] Last Admin: 09/11/21 05:07 Dose: 10 mg Documented by: Pregabalin (Pregabalin 75 Mg Capsule) 75 mg PO BID [facility] Last Admin: 09/11/21 09:15 Dose: 75 mg Documented by: Promethazine HCl (Promethazine 25 Mg Tablet) 12.5 mg PO Q6H PRN PRN Reason: Nausea Sacubitril/Valsartan (Sacubitril/Valsartan 24-26 Mg Tablet) 1 each PO BID [facility] Last Admin: 09/11/21 09:14 Dose: 1 each Documented by: Sevelamer Carbonate (Sevelamer 800 Mg Tablet) 1,600 mg PO BID PRN PRN Reason: LARGE SNACKS Sevelamer Carbonate (Sevelamer 800 Mg Tablet) 2,400 mg PO TIDWM [facility] Last Admin: 09/11/21 09:48 Dose: Not Given Documented by: Vitals/I&O/Wt Last Vital Signs Temp 97.1 F L 09/11/21 08:00 Pulse 71 09/11/21 10:00 Resp 20 H 09/11/21 10:00 BP 128/71 09/11/21 08:04 Pulse Ox 96 09/11/21 10:00 09/10/21 09/11/21 09/11/21 22:59 06:59 14:59 Intake Total 850 / 1086 Output Total 0 / 0 Balance 850 / 1086 Weight last 48 hrs Weight 86.727 kg Weight 86.9 kg Physical Exam Narrative: EXAM NARRATIVE: Constitutional: Awake, comfortable HEENT: Wet mucosa, no jvp, non icteric Lungs: Bilaterally clear without discernible wheeze, rales in all lung zones CVS: S1 S2, no murmurs Abdo: Soft, BS ok Ext 4: Minimal edema, peripheral perfusion with no cyanosis Neurological: Grossly non-focal Data : 09/11/21 02:26 09/11/21 02:26 A&P Additional A&P Information 1. ESRD Seen and examined on dialysis Cont MWF schedule Michael childress in the am 3K, UF 3L Dose medication for GFR less than 15 2. CAD Ongoing chest pain. Management per cardiology, I see mention of possible repeat angiography. Nuc study positive for reversibility 3. Hemodynamics Blood pressure looks good. 4. Chronic ESRD issues to be addressed as outpatient as part of standard monthly management. Hb drifting down a little and I will watch closely. Rei Jacob MD Nephrology [phone] Patient seen and examined via telemedicine, with the assistance of the bedside RN > 25 min spent in evaluation and mgmt of patient Attestations Medical Necessity Statement*: Eval for eSRD Coding Level of Care Code Acute Workplace Rehabilitation Officer for Ger Godfrey
[2021-09-11] MEDS: heparin 5,000 unit/mL INJ 1 mL 5000 UNIT SUBCUT (15:55)
--- NOTE | 2021-09-11 15:55 | PM.PN ---
Subjective Subjective: Interval history: Acute chest pain 03/02 status post dialysis Nitropaste not relieving pain Positive stress test As per Dr. Landis plan is to manage medically for now Vitals/I&O/Wt Last Vital Signs Temp 97.1 F L 09/11/21 08:00 Pulse 71 09/11/21 10:00 Resp 20 H 09/11/21 10:00 BP 128/71 09/11/21 08:04 Pulse Ox 96 09/11/21 10:00 Weight last 48 hrs Weight 86.727 kg Weight 86.9 kg Physical Exam Narrative: EXAM NARRATIVE: Saw patient after dialysis With lethargic and fatigued Hemodynamically stable Complaining of chest pain which is pressure like sensation radiating to left shoulder S1, S2 variable Abdomen soft Lower symmetry no edema EOMI, PERRLA nonfocal neuro exam Data : 09/11/21 02:26 09/11/21 02:26 A&P Assessment and plan (1) ESRD (end stage renal disease): Status: Acute (2) Non-ST elevation (NSTEMI) myocardial infarction: Status: Acute (3) CHF NYHA class III (symptoms with mildly strenuous activities): Status: Acute Qualifiers: Congestive heart failure type: combined Congestive heart failure chronicity: acute on chronic Qualified Code(s): I50.43 - Acute on chronic combined systolic (congestive) and diastolic (congestive) heart failure (4) Ischemic cardiomyopathy: Status: Acute (5) Hemochromatosis: Status: Acute Qualifiers: Hemochromatosis type: unspecified Qualified Code(s): E83.119 - Hemochromatosis, unspecified Additional A&P Information Unstable angina Status post 2 stents Still complaining of pressure-like sensation substernal radiating to her left shoulder Cervical spine pathology reviewed No signs of aortic dissection No signs of PE Positive stress test Patient is not felt better in terms of his chest pain Currently has Nitropaste Imdur dose has been increased Plan to monitor him 1 more day in case of persistent chest pain will tell Dr. Landis updated We will make him n.p.o. after midnight DVT prophylaxis: Heparin Continue aspirin and Plavix Tuesday dialysis Full code Attestations Medical Necessity Statement*: Persistent chest pain, continue monitoring Time Spent in Patient Care: 16 - 35 minutes Coding Level of Care Code Acute [employer] Operator for Chg Fwd Diagnoses ESRD (end stage renal disease) N18.6 Non-ST elevation (NSTEMI) myocardial infarction I21.4 CHF NYHA class III (symptoms with mildly strenuous activities) I50.43 Congestive heart failure type: combined Congestive heart failure chronicity: acute on chronic Ischemic cardiomyopathy I25.5 Hemochromatosis E83.119 Hemochromatosis type: unspecified
[2021-09-11 16:30] LABS: Glucose Point of Care 180 mg/dL (70-110)
[2021-09-11] MEDS: insulin lispro 100 unit/1 mL SUBCUT ×2 (17:58→21:03)
--- NOTE | 2021-09-11 20:05 | PC.NURSE ---
Received phone call from Dr Landis and obtained order to restart metoprolol 25mg PO BID. To give only if SBP is greater or equal to 100. RBVO
[2021-09-11 20:31] LABS: Glucose Point of Care 146 mg/dL (70-110)
[2021-09-11] MEDS: clopidogrel 75 mg Tablet PO (21:02)
[2021-09-11] MEDS: atorvastatin 40 mg Tablet PO (21:02)
[2021-09-11] MEDS: metoprolol tartrate 25 mg Tablet PO (21:05)
[2021-09-12] VITALS (58 sets, daily range): BP systolic 90–136; BP diastolic 52–83; PULSE 67–87; RESP 8–24; TEMP 36.3; O2SAT 89–100
[2021-09-12] MEDS: ipratropium-albuterol 3 mL Neb INHALATION ×3 (02:16→20:22)
[2021-09-12] MEDS: oxyCODONE 5 mg IR Tab/Cap PO ×2 (05:18→19:38)
[2021-09-12] MEDS: pantoprazole DR 40 mg Tablet PO (05:18)
[2021-09-12] MEDS: duloxetine 20 mg Capsule PO (05:19)
[2021-09-12] MEDS: aspirin 81 mg EC Tablet PO (05:19)
[2021-09-12] MEDS: nitroglycerin 1 gm/inch oint Pkt 1 INCH TOPICAL (05:19)
[2021-09-12] MEDS: predniSONE 10 mg Tablet PO (05:20)
[2021-09-12 06:41] LABS: Glucose Point of Care 113 mg/dL (70-110)
--- NOTE | 2021-09-12 09:23 | PC.SOCIAL ---
IMM update IMM updated with patient. Copy pg 2 provided. Verbalized an understanding. Initialled, dated, timed, and placed in chart.
--- NOTE | 2021-09-12 09:34 | PM.PN ---
Subjective Subjective: Interval history: On going chest pain. Successful dialysis yesterday. Some subjective SOB. No edema and no other hypervolemic Sx. Hemodynamics remain stable Medications: Reviewed: Yes Medication Review Details: Current Medications Acetaminophen (Acetaminophen 325 Mg Tablet) 650 mg PO Q6H PRN PRN Reason: Mild/Mod Pain Or Temp >/= 101 Albuterol Sulfate (Albuterol 8 Gm Mdi) 2 puff INHALATION QID.RESPIRATORY PRN PRN Reason: shortness of breath or wheezing Albuterol/Ipratropium (Ipratropium-Albuterol 3 Ml Neb) 3 ml INHALATION Q6H.RESPIRATORY [facility] Last Admin: 09/11/21 09:59 Dose: 3 ml Documented by: Aminophylline (Aminophylline 25 Mg/Ml Sdv 10 Ml) 25 mg IVP Q2M PRN PRN Reason: see dose instructions Stop: 09/12/21 07:13 Amlodipine Besylate (Amlodipine 5 Mg Tablet) 5 mg PO DAILY [facility] Last Admin: 09/11/21 09:14 Dose: 5 mg Documented by: Aspirin (Aspirin 81 Mg Ec Tablet) 81 mg PO QAM [facility] Last Admin: 09/11/21 05:07 Dose: 81 mg Documented by: Atorvastatin Calcium (Atorvastatin 40 Mg Tablet) 40 mg PO BEDTIME [facility] Last Admin: 09/10/21 20:55 Dose: 40 mg Documented by: Azathioprine (Azathioprine 50 Mg Tablet) 25 mg PO 0800 [facility] Last Admin: 09/11/21 10:35 Dose: 25 mg Documented by: Azathioprine (Azathioprine 50 Mg Tablet) 50 mg PO 2100 [facility] Clopidogrel Bisulfate (Clopidogrel 75 Mg Tablet) 75 mg PO BEDTIME [facility] Last Admin: 09/10/21 20:55 Dose: 75 mg Documented by: Cyclobenzaprine HCl (Cyclobenzaprine 10 Mg Tablet) 10 mg PO TID [facility] Last Admin: 09/11/21 09:14 Dose: 10 mg Documented by: Dextrose (Dextrose 50% Syringe 50 Ml) 25 ml IVP ONCE PRN; Protocol PRN Reason: hypoglycemia protocol Dextrose (Dextrose 50% Syringe 50 Ml) 50 ml IVP PRN PRN; Protocol PRN Reason: hypoglycemia protocol Duloxetine HCl (Duloxetine 20 Mg Capsule) 20 mg PO QAM [facility] Last Admin: 09/11/21 05:07 Dose: 20 mg Documented by: Fluticasone Propionate (Fluticasone Nasal [place] 16gm Btl) 1 spray INTRANASAL BID PRN PRN Reason: Nasal Congestion Last Admin: 09/11/21 09:17 Dose: 1 spray Documented by: Glucagon (Glucagon 1 Mg/Ml Inj 1 Ml) 1 mg IM ONCE PRN; Protocol PRN Reason: Adult Acute Hypoglycemia Prot. Heparin Sodium (Porcine) (Heparin 5,000 Unit/Ml Inj 1 Ml) 0 unit IV PRN PRN; Protocol PRN Reason: Heparin weight-base protocol Last Admin: 09/07/21 22:18 Dose: 4,000 unit Documented by: Heparin Sodium (Porcine) (Heparin 5,000 Unit/Ml Inj 1 Ml) 5,000 unit SUBCUT Q12H [facility] Last Admin: 09/10/21 22:02 Dose: Not Given Documented by: Heparin Sodium/Sodium Chloride (Heparin Drip) 25,000 unit in 500 mls @ 0 mls/hr IV .Q0M [facility]; Protocol Last Titration: 09/08/21 03:30 Dose: 12.16 unit/kg/hr, 19.86 mls/hr Documented by: Dextrose (D5w) 500 mls @ 100 mls/hr IV ONCE PRN; Protocol PRN Reason: Adult Acute Hypoglycemia Prot Insulin Human Lispro (Insulin Lispro 100 Unit/1 Ml) 0 unit SUBCUT WM&BEDTIME [facility]; Protocol Last Admin: 09/11/21 09:47 Dose: Not Given Documented by: Isosorbide Mononitrate (Isosorbide Mononitrate Er 60 Mg Tablet) 60 mg PO DAILY [facility] Ketorolac Tromethamine (Ketorolac 30 Mg/Ml Inj) 15 mg IVP Q6H PRN PRN Reason: MODERATE PAIN Stop: 09/14/21 11:31 Last Admin: 09/11/21 10:01 Dose: 15 mg Documented by: Lidocaine (Lidocaine 5% Patch) 1 patch TOPICAL [id number] [facility] Last Admin: 09/11/21 09:48 Dose: Not Given Documented by: Lidocaine/Prilocaine (Lidocaine-Prilocaine Cream 5 Gm) 0 applic TOPICAL PRN PRN PRN Reason: use as directed over fistula Metoprolol Tartrate (Metoprolol Tartrate 25 Mg Tablet) 25 mg PO DAILY [facility] Last Admin: 09/10/21 08:02 Dose: 25 mg Documented by: Nitroglycerin (Nitroglycerin 0.4 Mg Sublingual Tablet) 0.4 mg SUBLINGUAL Q5M PRN PRN Reason: Chest Pain Last Admin: 09/09/21 09:06 Dose: 1 applic Documented by: Nitroglycerin (Nitroglycerin 1 Gm/Inch Oint Pkt) 1 inch TOPICAL Q6H [facility] Last Admin: 09/11/21 05:07 Dose: 1 inch Documented by: Nitroglycerin (Nitroglycerin 0.4 Mg Sublingual Tablet) 0.4 mg SUBLINGUAL Q5M PRN PRN Reason: CHEST PAIN Stop: 09/12/21 07:13 Ondansetron HCl (Ondansetron 2 Mg/Ml Sdv 2 Ml) 4 mg IVP Q8H PRN PRN Reason: vomiting, or N/V if npo Last Admin: 09/08/21 06:19 Dose: 4 mg Documented by: Ondansetron HCl (Ondansetron 2 Mg/Ml Sdv 2 Ml) 4 mg IVP Q2M PRN PRN Reason: NAUSEA Oxycodone HCl (Oxycodone 5 Mg Ir Tab/Cap) 5 mg PO BID PRN PRN Reason: MODERATE PAIN Last Admin: 09/11/21 09:22 Dose: 5 mg Documented by: Pantoprazole Sodium (Pantoprazole Dr 40 Mg Tablet) 40 mg PO [facility] Last Admin: 09/11/21 05:07 Dose: 40 mg Documented by: Prednisone (Prednisone 10 Mg Tablet) 10 mg PO QAM [facility] Last Admin: 09/11/21 05:07 Dose: 10 mg Documented by: Pregabalin (Pregabalin 75 Mg Capsule) 75 mg PO BID [facility] Last Admin: 09/11/21 09:15 Dose: 75 mg Documented by: Promethazine HCl (Promethazine 25 Mg Tablet) 12.5 mg PO Q6H PRN PRN Reason: Nausea Sacubitril/Valsartan (Sacubitril/Valsartan 24-26 Mg Tablet) 1 each PO BID [facility] Last Admin: 09/11/21 09:14 Dose: 1 each Documented by: Sevelamer Carbonate (Sevelamer 800 Mg Tablet) 1,600 mg PO BID PRN PRN Reason: LARGE SNACKS Sevelamer Carbonate (Sevelamer 800 Mg Tablet) 2,400 mg PO TIDWM [facility] Last Admin: 09/11/21 09:48 Dose: Not Given Documented by: Vitals/I&O/Wt Last Vital Signs Temp 97.3 F L 09/12/21 03:03 Pulse 70 09/12/21 05:37 Resp 16 09/12/21 05:18 BP 99/52 09/12/21 03:03 Pulse Ox 97 09/12/21 05:18 09/11/21 09/12/21 09/12/21 22:59 06:59 14:59 Intake Total 240 / 240 Output Total 1999 Balance -1760 / -1760 Weight last 48 hrs Weight 89.1 kg Physical Exam Narrative: EXAM NARRATIVE: Constitutional: Awake, comfortable HEENT: Wet mucosa, no jvp, non icteric Lungs: Bilaterally clear without discernible wheeze, rales in all lung zones CVS: S1 S2, no murmurs Abdo: Soft, BS ok Ext 4: Minimal edema, peripheral perfusion with no cyanosis Neurological: Grossly non-focal Data : 09/11/21 02:26 09/11/21 02:26 A&P Additional A&P Information 1. ESRD Dialyzed yesterday. Plans for angiogram noted, no need to dialyze off the dye per se but I will be happy to dialyze if there are volume concerns 3K, UF 3L Dose medication for GFR less than 15 2. CAD Ongoing chest pain. Management per cardiology, I see mention of possible repeat angiography. Nuc study positive for reversibility 3. Hemodynamics Blood pressure looks good. 4. Chronic ESRD issues to be addressed as outpatient as part of standard monthly management. Hb drifting down a little and I will watch closely. Rei Jacob MD Nephrology [phone] Patient seen and examined via telemedicine, with the assistance of the bedside RN > 25 min spent in evaluation and mgmt of patient Attestations Medical Necessity Statement*: Eval for anemia Coding Level of Care Code Acute Business Unit Leader for Chg Epifanio
[2021-09-12] MEDS: sacubitril/valsartan 24-26 mg Tablet 1 EACH PO (09:51)
[2021-09-12] MEDS: cyclobenzaprine 10 mg Tablet PO ×3 (09:51→19:37)
[2021-09-12] MEDS: lidocaine 5% Patch 1 PATCH TOPICAL (09:52)
[2021-09-12] MEDS: amlodipine 5 mg Tablet PO (09:52)
[2021-09-12] MEDS: isosorbide mononitrate ER 60 mg Tablet PO (09:52)
[2021-09-12] MEDS: metoprolol tartrate 25 mg Tablet PO ×2 (09:55→19:37)
[2021-09-12] MEDS: pregabalin 75 mg Capsule PO ×2 (09:55→17:01)
--- NOTE | 2021-09-12 09:59 | P.PN_ITS ---
Subjective Subjective: Interval history: Patient continues to have chest pain. This morning the pain got worse and he became diaphoretic. The EKG did not show any new changes. The pain is not relieved with the nitro or with tramadol/other pain medications. He also is complaining of shortness of breath. Medications: Reviewed: Yes Medication Review Details: Current Medications Acetaminophen (Acetaminophen 325 Mg Tablet) 650 mg PO Q6H PRN PRN Reason: Mild/Mod Pain Or Temp >/= 101 Albuterol Sulfate (Albuterol 8 Gm Mdi) 2 puff INHALATION QID.RESPIRATORY PRN PRN Reason: shortness of breath or wheezing Albuterol/Ipratropium (Ipratropium-Albuterol 3 Ml Neb) 3 ml INHALATION Q6H.RESP IRATORY [facility] Last Admin: 09/12/21 09:19 Dose: 3 ml Documented by: Amlodipine Besylate (Amlodipine 5 Mg Tablet) 5 mg PO DAILY [facility] Last Admin: 09/12/21 09:52 Dose: 5 mg Documented by: Aspirin (Aspirin 81 Mg Ec Tablet) 81 mg PO QAM [facility] Last Admin: 09/12/21 05:19 Dose: 81 mg Documented by: Atorvastatin Calcium (Atorvastatin 40 Mg Tablet) 40 mg PO BEDTIME [facility] Last Admin: 09/11/21 21:02 Dose: 40 mg Documented by: Azathioprine (Azathioprine 50 Mg Tablet) 25 mg PO 0800 [facility] Last Admin: 09/11/21 10:35 Dose: 25 mg Documented by: Clopidogrel Bisulfate (Clopidogrel 75 Mg Tablet) 75 mg PO BEDTIME [facility] Last Admin: 09/11/21 21:02 Dose: 75 mg Documented by: Cyclobenzaprine HCl (Cyclobenzaprine 10 Mg Tablet) 10 mg PO TID [facility] Last Admin: 09/12/21 09:51 Dose: 10 mg Documented by: Dextrose (Dextrose 50% Syringe 50 Ml) 25 ml IVP ONCE PRN; Protocol PRN Reason: hypoglycemia protocol Dextrose (Dextrose 50% Syringe 50 Ml) 50 ml IVP PRN PRN; Protocol PRN Reason: hypoglycemia protocol Duloxetine HCl (Duloxetine 20 Mg Capsule) 20 mg PO QAM [facility] Last Admin: 09/12/21 05:19 Dose: 20 mg Documented by: Fluticasone Propionate (Fluticasone Nasal [place] 16gm Btl) 1 spray INTRANASAL BID PRN PRN Reason: Nasal Congestion Last Admin: 09/11/21 09:17 Dose: 1 spray Documented by: Glucagon (Glucagon 1 Mg/Ml Inj 1 Ml) 1 mg IM ONCE PRN; Protocol PRN Reason: Adult Acute Hypoglycemia Prot. Heparin Sodium (Porcine) (Heparin 5,000 Unit/Ml Inj 1 Ml) 0 unit IV PRN PRN; Protocol PRN Reason: Heparin weight-base protocol Last Admin: 09/07/21 22:18 Dose: 4,000 unit Documented by: Heparin Sodium (Porcine) (Heparin 5,000 Unit/Ml Inj 1 Ml) 5,000 unit SUBCUT Q12H [facility] Last Admin: 09/11/21 23:24 Dose: Not Given Documented by: Heparin Sodium/Sodium Chloride (Heparin Drip) 25,000 unit in 500 mls @ 0 mls/hr IV .Q0M [facility]; Protocol Last Titration: 09/08/21 03:30 Dose: 12.16 unit/kg/hr, 19.86 mls/hr Documented by: Dextrose (D5w) 500 mls @ 100 mls/hr IV ONCE PRN; Protocol PRN Reason: Adult Acute Hypoglycemia Prot Nitroglycerin/Dextrose (Nitroglycerin Drip) 50 mg in 250 mls @ 0 mls/hr IV .Q0M [facility]; Protocol Insulin Human Lispro (Insulin Lispro 100 Unit/1 Ml) 0 unit SUBCUT WM&BEDTIME [facility]; Protocol Last Admin: 09/12/21 09:49 Dose: Not Given Documented by: Isosorbide Mononitrate (Isosorbide Mononitrate Er 60 Mg Tablet) 60 mg PO DAILY [facility] Last Admin: 09/12/21 09:52 Dose: 60 mg Documented by: Ketorolac Tromethamine (Ketorolac 30 Mg/Ml Inj) 15 mg IVP Q6H PRN PRN Reason: MODERATE PAIN Stop: 09/14/21 11:31 Last Admin: 09/11/21 21:36 Dose: 15 mg Documented by: Lidocaine (Lidocaine 5% Patch) 1 patch TOPICAL [id number] [facility] Last Admin: 09/12/21 09:52 Dose: 1 patch Documented by: Lidocaine/Prilocaine (Lidocaine-Prilocaine Cream 5 Gm) 0 applic TOPICAL PRN PRN PRN Reason: use as directed over fistula Metoprolol Tartrate (Metoprolol Tartrate 25 Mg Tablet) 25 mg PO DAILY [facility] Last Admin: 09/12/21 09:55 Dose: 25 mg Documented by: Metoprolol Tartrate (Metoprolol Tartrate 25 Mg Tablet) 25 mg PO BID@0900,2100 [facility] Last Admin: 09/11/21 21:05 Dose: 25 mg Documented by: Nitroglycerin (Nitroglycerin 0.4 Mg Sublingual Tablet) 0.4 mg SUBLINGUAL Q5M PRN PRN Reason: Chest Pain Last Admin: 09/09/21 09:06 Dose: 1 applic Documented by: Ondansetron HCl (Ondansetron 2 Mg/Ml Sdv 2 Ml) 4 mg IVP Q8H PRN PRN Reason: vomiting, or N/V if npo Last Admin: 09/08/21 06:19 Dose: 4 mg Documented by: Ondansetron HCl (Ondansetron 2 Mg/Ml Sdv 2 Ml) 4 mg IVP Q2M PRN PRN Reason: NAUSEA Oxycodone HCl (Oxycodone 5 Mg Ir Tab/Cap) 5 mg PO BID PRN PRN Reason: MODERATE PAIN Last Admin: 09/12/21 05:18 Dose: 5 mg Documented by: Pantoprazole Sodium (Pantoprazole Dr 40 Mg Tablet) 40 mg PO QAM [facility] Last Admin: 09/12/21 05:18 Dose: 40 mg Documented by: Prednisone (Prednisone 10 Mg Tablet) 10 mg PO QAM [facility] Last Admin: 09/12/21 05:20 Dose: 10 mg Documented by: Pregabalin (Pregabalin 75 Mg Capsule) 75 mg PO BID [facility] Last Admin: 09/12/21 09:55 Dose: 75 mg Documented by: Promethazine HCl (Promethazine 25 Mg Tablet) 12.5 mg PO Q6H PRN PRN Reason: Nausea Sacubitril/Valsartan (Sacubitril/Valsartan 24-26 Mg Tablet) 1 each PO BID [facility] Last Admin: 09/12/21 09:51 Dose: 1 each Documented by: Sevelamer Carbonate (Sevelamer 800 Mg Tablet) 1,600 mg PO BID PRN PRN Reason: LARGE SNACKS Sevelamer Carbonate (Sevelamer 800 Mg Tablet) 2,400 mg PO TIDWM [facility] Last Admin: 09/12/21 09:49 Dose: Not Given Documented by: Vitals/I&O/Wt Last Vital Signs Temp 97.3 F L 09/12/21 03:03 Pulse 70 09/12/21 05:37 Resp 16 09/12/21 05:18 BP 99/52 09/12/21 03:03 Pulse Ox 97 09/12/21 05:18 09/11/21 09/12/21 09/12/21 22:59 06:59 14:59 Intake Total 240 / 240 Output Total 1999 Balance -1760 / -1760 Weight last 48 hrs Weight 196 lb 6.91 oz Physical Exam Narrative: EXAM NARRATIVE: GENERAL: The patient is alert and oriented times three. Not in any acute distress. HEENT: Minimal pallor. No, icterus or lymphadenopathy.Oral cavity: There are no mucous membrane lesions. NECK: Trachea appears to be central. No masses noted. No JVD or thyromegaly appreciated. RESPIRATORY: Chest is symmetrical. No intercostals muscle retraction or any accessory muscle activation. There is no chest wall tenderness. Breath sounds are heard bilaterally. No rales or rhonchi heard. No evidence of any consolidation. BREASTS: Deferred. HEART: The heart sounds are normal. No S3 or S4. Short systolic murmur the le ft sternal border and also at the base of the heart. No diastolic murmurs.. No pericardial rub ABDOMEN: No vessel pulsations or distention. No tenderness. No organomegaly appreciated. Bowel sounds are normally heard. : Deferred. RECTAL: Deferred. LYMPHATIC: No lymphadenopathy noted in the neck or groin. EXTREMITIES: No hematoma or bleeding from the right groin. MUSCULOSKELETAL: No acute joint deformities or swelling. SKIN: There are no significant rashes or ecchymosis NEUROPSYCHIATRIC: The patient is alert and oriented x3. Appears to be in a good mood. No tremors or rigidity noted. Data : 09/13/21 03:20 09/13/21 07:30 Other Labs: Laboratory Last Values WBC 7.8 10^3/uL (4.0-10.0) 09/11/21 02:26 RBC 2.72 10^6/uL (4.1-5.3) L 09/11/21 02:26 Hgb 8.2 g/dL (11.7-16.6) L 09/11/21 02:26 Hct 26.1 % (42.0-52.0) L 09/11/21 02:26 MCV 96.0 fl (80-94) H 09/11/21 02:26 MCH 30.1 pg (28.0-34.0) 09/11/21 02:26 MCHC 31.4 g/dL (30.0-36.0) 09/11/21 02:26 RDW 15.9 % (12.1-15.1) H 09/11/21 02:26 Plt Count 146 10^3/cmm (130-400) 09/11/21 02:26 MPV 9.5 fL (7.4-10.4) 09/11/21 02:26 Neut % (Auto) 83.6 % 09/11/21 02:26 Lymph % (Auto) 5.4 % 09/11/21 02:26 [place] % (Auto) 8.8 % 09/11/21 02:26 Eos % (Auto) 1.5 % 09/11/21 02:26 Baso % (Auto) 0.3 % 09/11/21 02:26 Neut # (Auto) 6.53 10^3/uL (1.8-7.7) 09/11/21 02:26 Lymph # (Auto) 0.4 10^3/uL (0.8-4.8) L 09/11/21 02:26 [place] # (Auto) 0.7 10^3/uL (0.2-0.9) 09/11/21 02:26 Eos # (Auto) 0.1 10^3/uL (0.0-0.8) 09/11/21 02:26 Baso # (Auto) 0.0 10^3/uL (0.0-0.1) 09/11/21 02:26 Nucleated RBC % (auto) 0 % 09/11/21 02:26 Nucleated RBCs # 0.0 /100WBC 09/11/21 02:26 APTT 26.4 SECONDS (23.9-36.7) D 09/09/21 20:40 Sodium 138 mmol/L (136-145) 09/11/21 02:26 Potassium 4.1 mmol/L (3.5-5.1) 09/11/21 02:26 Chloride 97 mmol/L (98-107) L 09/11/21 02:26 Carbon Dioxide 28 mmol/L (22-29) 09/11/21 02:26 Anion Gap 17.1 (5-19) 09/11/21 02:26 BUN 33 mg/dL (6-20) H 09/11/21 02:26 Creatinine 7.0 mg/dL (0.7-1.2) H* D 09/11/21 02:26 GFR Calculation 8.3 mL/min (90-130) L 09/11/21 02:26 Glucose 99 mg/dL (65-115) 09/11/21 02:26 POC Glucose 113 mg/dL (70-110) H 09/12/21 06:36 Calculated Osmolality 293 mOsm/kg (285-295) 09/11/21 02:26 Calcium 8.1 mg/dL (8.5-10.5) L 09/11/21 02:26 Magnesium 1.9 mg/dL (1.7-2.3) 09/07/21 15:38 Total Bilirubin 1.5 mg/dL (0.15-1.2) H 09/08/21 02:38 AST 13 U/L (0-40) 09/08/21 02:38 ALT 7 U/L (0-41) 09/08/21 02:38 Alkaline Phosphatase 91 IU/L (40-130) 09/08/21 02:38 Troponin T Gen 5 ng/L 202 ng/L (0-15) H* 09/09/21 09:18 Troponin T Baseline 246 ng/L (0-15) H* 09/07/21 15:38 Troponin T 120 Minute 213.9 ng/L (0-15) H 09/07/21 17:38 Delta Troponin T -32.1 ABS# (0-10) L 09/07/21 17:38 Troponin T Hi Sens 6Hr 223.5 ng/L (0-15) H 09/07/21 21:24 Troponin T Hi Sens 6Hr Delta -22.5 ng/L (0-12) L 09/07/21 21:24 NT-Pro-B Natriuret Pep > 10351 pg/mL (0-125) H 09/07/21 15:38 Total Protein 6.7 g/dL (6.6-8.7) 09/08/21 02:38 Albumin 3.9 g/dL (3.5-5.2) 09/08/21 02:38 Globulin 2.8 g/dL (1.3-4.6) 09/08/21 02:38 Lipase 33 U/L (13-60) 09/07/21 15:38 SARS-CoV-2 Ag (Rapid) Negative (Negative) 09/07/21 16:16 A&P Assessment and plan (1) Atypical chest pain: This patient seems to have unstable anginal symptoms. In view of his ongoing and worsening symptoms, in order to further evaluate his coronary status, a repeat cardiac catheterization would be appropriate. An IFR of the proximal circumflex artery lesion followed by possible PCI would be appropriate. 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 The etiology of the ongoing chest pain is unclear. No evidence of any aortic dissection or PE based on CTA Status: Acute (3) Anemia: Her hemoglobin seems to be stable. Based on the results of the above and patient's clinical progress, further recommendations will be made Thank you for the opportunity to evaluate this patient and make these recommendations continue on the current medications Status: Acute Qualifiers: Anemia type: unspecified type Qualified Code(s): D64.9 - Anemia, unspecified (4) Hemochromatosis: Patient is being followed by Dr. Colon. Status: Acute Qualifiers: Hemochromatosis type: unspecified Qualified Code(s): E83.119 - Hemochromatosis, unspecified (5) Ischemic cardiomyopathy: Since the patient has no evidence of any cardiac decompensation, is advised to continue on the current measures. The current medications were reviewed. Hemochromatosis causing liver dysfunction cannot be excluded. Status: Acute (6) Mixed hyperlipidemia: Continue on the current management. Follow-up evaluation as scheduled. Status: Acute Additional A&P Information I discussed the patient's status with Dr. Gallegos and Dr. Mclaughlin. Dr. Gallegos agreed to take this patient back to the Stretcher Operator to do a repeat angiogram, IFR of the proximal circumflex lesion and possible PCI. The management plan also discussed with the patient in detail which he understood well. 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
--- NOTE | 2021-09-12 10:08 | ECG_ITS ---
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 Measurements Intervals [place] Rate: 73 P: 23 MI: 146 QRS: -3 QRSD: 107 T: 177 QT: 432 QTc: 479 Interpretive Statements SINUS RHYTHM LEFT VENTRICULAR HYPERTROPHY AND ST-T CHANGE [VOLTAGE CRITERIA PLUS ST/T ABNORMALITY] Compared to ECG 09/09/2021 10:28:16 No significant changes Electronically Signed On 09-12-2021 22:16:22 MEDICAL ASSISTANT FLOAT by Isauro Landis M.D. [id number]
--- NOTE | 2021-09-12 10:13 | XACV_ITS ---
Exam Room: [facility] Ht: 178 cm Wt: 82 kg BSA: 2.02 m2 Gender: Male : 1970 Any Known Allergies: Other Exam Priority: Routine Procedure(s): Procedure Description: Diagnostic procedure Procedure Description: Coronary Angiography Procedure Description: Pressure Wire Boby BOOTHE; Diagnostic Cath Status: Urgent Diagnostic Findings * Moderate disease of left circumflex artery. * IFR has confirmed * no myocardial territories are ischemic * . IFR * was nonischemic in LAD, left circumflex and diagonal artery territories.. * Indication: Patient had a PCI of proximal LAD and ramus during this hospitalization. He continues having chest pain symptoms. His primary hogshead mat inspector, Dr. Landis has performed stress test that is abnormal. He has recommended performing coronary angiogram to reevaluate left circumflex artery with possible IFR as stress test is abnormal in that territory. * No significant disease in left main artery. LAD stent is patent. Ramus stent is patent. Ostial left circumflex artery has moderate 40 to 50% stenosis. RCA has mild to moderate diffuse disease.. * Coronary angiography shows right dominance. PCI Status: Urgent Interventional Findings * Procedure detail: We engaged left main artery with XB 3.5 guide catheter. Heparin was administered to maintain an ACT above 250 seconds. After zeroing and normalization, we advanced IFR wire with help of super cross microcatheter into the left circumflex artery. An IFR value of 0.98 was obtained. This wire was then directed to diagonal artery. An IFR value of 0.95 was obtained. We then advanced the wire to LAD and an IFR value of 0.90 was obtained. This confirmed none of myocardial territories was ischemic. Patient left the Coal And Ash Supervisor in a stable condition.. Conclusions 1. Moderate disease of left circumflex artery. 2. IFR has confirmed 3. no myocardial territories are ischemic 4. . IFR 5. was nonischemic in LAD, left circumflex and diagonal artery territories.. Recommendations * Continue dual antiplatelet therapy. * Transfer back to [facility]. * Work-up for noncardiac causes of chest pain. * Outpatient cardiology follow-up in 4 weeks. Interventional RX Recommendation: medical therapy and/or counseling Anticoagulation: Heparin Pressures Phase:Rest AO : 119 / 76 ( 92 ) @ 8:55:00 AM 94 / 70 ( 81 ) @ 9:04:00 AM 103 / 86 ( 96 ) @ 9:15:00 AM 116 / 78 ( 93 ) @ 9:22:00 AM Clinical Evaluation EBL: 5mL-10mL Procedural Details Hemodynamic formulas in Rest were re-calculated based on hemoglobin value from 09/11/2021 2:26:00 AM. Procedure Consent Obtained. Pre-Procedure Time Out. Identified patient by full name and date of as verbalized by the patient/guarantor. Does the consent match the physician's order: Yes. Accurate & Complete Informed Consent: Yes. Inpatient/Outpatient History & Physical on Chart: Yes. If H&P is completed, is and addenduem needed: No; If yes, is the addendum complete: N/A. Visualize and Verify Site with Patient/Guarantor: N/A. Relevant Radiology Images available: Yes. The risks, benefits, and alternatives of sedation and/or procedure were discussed by physician. The patient agrees to continue. Procedure started. Physician arrived. [facility] Clinical Fraility Score: 5: Mildly Frail. Coal And Ash Supervisor Indications: Suspected CAD. Chest Pain Symptom Assessment: Typical Angina Symptoms. Correct patient, site and procedure confirmed by cath team. Current diagnosis: Chest Pain. PERRLA. Strong, equal hand direct support professional bilaterally. Lungs clear x 5 lobes. IV Site on Arrival: 20 gauge in the right forearm. IV Fluids: 0.9% NaCl at KVO. 0 mL infused prior to cath lab manager. Oxygen started at 2liters/min via nasal canula. right groin was prepped with chloroprep then draped in the usual sterile fashion. right radial was prepped with chloroprep then draped in the usual sterile fashion. Baseline sample Acquired. HR: 80 BPM. Physician notified. Physician scrubbed in. Immediate Pre-Procedure Time Out. Correct Patient: Yes; Correct Procedure: Yes; Correct Site: Yes; Correct Patient Position: Yes; Correct Supplies: Yes; Dried Flammable Prep: Yes; Blood Products Available: N/A;. Lidocaine 1% infiltrated to the left groin. Arterial access obtained with micropuncture set. wire and needle removed. Arterial access obtained with micropuncture set. 6 canadian XB 3.5 guide catheter was inserted over the wire. Multiple views taken of left coronary artery. FFR guidewire was advanced through the guide catheter to lesion in the prox Circ. Wire out. Run[place] guidewire was advanced through the guide catheter to lesion in the prox Circ. Wire out. Supercross support catheter inserted over the IFR wire and advanced to the prox cx. IFR results: 0.98. wire redirected to the diag. IFR results: 0.95. wire redirected to the LAD. IFR results: 0.90. Wire out and microcatheter out. Guide catheter out. A 5 canadian JR4 catheter in over wire. Multiple views taken of right coronary artery. Catheter removed over the standard wire. A Suture was successful obtaining hemostatsis at the Left Femoral artery insertion site. Post Procedure: Pulses reassessed and unchanged. PERRLA. Strong, equal hand direct support professional bilaterally. No VTE prophylaxis required. Medication's Wasted: Lidocaine 1% = 11 mL. Medication's Wasted: Nitro = 50 mg. Medication's Wasted: Heparin = 1000 units. Total IV fluids: 31 mL. Contrast type used: Visipaque 320 mgI/mL, 500 mL bottle. Complications: None. Estimated blood loss: 5mL-10mL. Procedure completed. Patient transferred by bed to 1st floor. Vital chart was stopped. Access Site Site: Left Femoral artery Sheath Size: 6 Fr Hemostasis Method: Suture Hemostasis Success: Successful Procedure Medications Start: 10:34 AM Stop: 10:34 AM Medication: Benadryl Amount: 50 mg Route: I.V. Start: 10:35 AM Stop: 10:35 AM Medication: Versed Amount: 1 mg Route: I.V. Start: 10:35 AM Stop: 10:35 AM Medication: Fentanyl Amount: 50 mcg Route: I.V. Start: 10:47 AM Stop: 10:47 AM Medication: Versed Amount: 1 mg Route: I.V. Start: 10:47 AM Stop: 10:47 AM Medication: Fentanyl Amount: 25 mcg Route: I.V. Start: 10:50 AM Stop: 10:50 AM Medication: Heparin Amount: 8000 units Route: I.V. Start: 11:10 AM Stop: 11:10 AM Medication: Heparin Amount: 2000 units Route: I.V. I, the attending physician, have reviewed and verified all procedure medications. Yes, all medications given per verbal order History/Risk Factors Hypertension: No Dyslipidemia: Yes Peripheral Arterial Disease (PAD): No Myocardial Infarction (UT): Yes Obesity: No Renal Disease: Yes Tobacco Use: Former Dialysis: Current Prior Interventions PCI: Yes CABG: No Valve Surgery: No Date of PCI: 07/08/2021 Report Signatures Finalized by Vaibhav Gallegos MD on 09/27/2021 06:36 PM
--- NOTE | 2021-09-12 10:21 | PC.NURSE ---
to cardiac cath via bed at this time
--- NOTE | 2021-09-12 10:32 | P.HPUD_ITS ---
Surgery/Procedure H&P Update DATE OF PROCEDURE: September 12, 2021 DATE H&P PERFORMED: 09/07/21 H&P UPDATE INFORMATION: I have reviewed H&P completed within last 30 days, I have examined patient prior to procedure and Changes to prior documentation as noted here CHANGES TO PREVIOUS DOCUMENTATION: Patient has been continued chest pain since his interventions to LAD and ramus and balloon angioplasty of the diagonal artery. Lexiscan was performed that showed ischemia in the RCA/ LCx territory. As he continues having chest pain, we will proceed with coronary angiogram with possible FFR of the LCx, recommended by his primary director script Dr Landis PREOP DIAGNOSIS: Unstable angina PLANNED PROCEDURE: Operation Date: 09/08/21 16:30 Proposed Procedures p Cardiac Catheterization(Not Applicable) - Isauro Landis MD Operation Date: 09/09/21 09:30 Proposed Procedures p Cardiac Catheterization(Not Applicable) - Vaibhav Gallegos M.D Operation Date: 09/12/2021 Cardiac catheterization- Vaibhav Gallegos MD Possible percutaneous coronary intervention PATIENT REASSESSED PRIOR TO SEDATION, WITH NO CHANGE NOTED: Yes PHYSICAL EXAM: alert, oriented x 3, clear to auscultation bilaterally and regular rate & rhythm AIRWAY EVAL/ANESTHESIA PLAN: ASA III, Monitored Anesthesia, Local Anesthesia, Risks, benefits & alternatives of sedation and/or procedure discussed and Patient agrees to continue as planned
[2021-09-12 11:03] LABS: Troponin T (5th) Once 412 ng/L (0-15)
[2021-09-12 12:48] LABS: Glucose Point of Care 169 mg/dL (70-110)
--- NOTE | 2021-09-12 13:58 | PC.NURSE ---
received from cardiac labor economics teacher at 1150 via bed.report received.no intervention performed.pt is alert and oriented x 4.sr on monitor.continues to complain of constant chest/left scapular pain rating 5/10.left femoral arterial sheath intact to pressurized system.drsg is dry and intact and no hematoma noted.left leg is warm to touch and with brisk capillary refill.palpable dp pulse noted.instructed in activity restrictions s/p femoral artery procedure...and instructed to notify staff for any bleeding,pain,numbness,or for any concerns at all.pt verb understanding of instructions.
--- NOTE | 2021-09-12 14:58 | P.PN_ITS ---
Subjective Subjective: Interval history: Patient is still complaining of chest pain, plan for angiogram, this will be his third angiogram during this visit, patient is stating that today his chest pain is worsening however EKG showing T wave changes related to LVH No acute ischemic or infarct changes Secondary to low blood pressure Nitropaste was removed this morning will need dialysis after contrast Vitals/I&O/Wt Last Vital Signs Temp 97.3 F L 09/12/21 03:03 Pulse 82 09/12/21 10:41 Resp 14 09/12/21 10:41 BP 99/52 09/12/21 03:03 Pulse Ox 100 09/12/21 10:41 09/11/21 09/12/21 09/12/21 22:59 06:59 14:59 Intake Total 240 / 240 240 / 240 Output Total 1999 Balance -1760 / -1760 240 / 240 Weight last 48 hrs Weight 89.1 kg Physical Exam Narrative: EXAM NARRATIVE: Patient was complaining of chest pain In distress with pain S1, S2 Looks euvolemic EOMI, PERRLA Saturating well on 2 L nasal cannula Abdomen soft No active shortness of breath He was laying in semi-Pittman position 30 degrees Data : 09/11/21 02:26 09/11/21 02:26 A&P Assessment and plan (1) ESRD (end stage renal disease): Status: Acute (2) Non-ST elevation (NSTEMI) myocardial infarction: Status: Acute (3) CHF NYHA class III (symptoms with mildly strenuous activities): Status: Acute Qualifiers: Congestive heart failure type: combined Congestive heart failure chronicity: acute on chronic Qualified Code(s): I50.43 - Acute on chronic comb ined systolic (congestive) and diastolic (congestive) heart failure (4) Ischemic cardiomyopathy: Status: Acute (5) Hemochromatosis: Status: Acute Qualifiers: Hemochromatosis type: unspecified Qualified Code(s): E83.119 - Hemochromatosis, unspecified Additional A&P Information Persistent chest discomfort Patient will go for third angiogram during this visit, troponin seems to be higher than baseline No signs of aortic dissection, no signs of PE cervical spine abnormalities noted Patient is stating that today his pain is worsened which she is describing as heaviness radiating to the left shoulder Dr. Landis and Dr. Gallegos on board Optimization of antianginal medications End-stage renal disease Tuesday, dialysis after contrast today Hemoglobin at goal Hold azathioprine Renal dialysis diet after angiogram today DVT prophylaxis: Heparin Full code Patient has refused LifeVest, AICD evaluation as per Dr. Landis after discharge Attestations Medical Necessity Statement*: Continue medical management Time Spent in Patient Care: less than 15 minutes Coding Level of Care Code Acute Line Repairer Tower for Chg Fwd Diagnoses ESRD (end stage renal disease) N18.6 Non-ST elevation (NSTEMI) myocardial infarction I21.4 CHF NYHA class III (symptoms with mildly strenuous activities) I50.43 Congestive heart failure type: combined Congestive heart failure chronicity: acute on chronic Ischemic cardiomyopathy I25.5 Hemochromatosis E83.119 Hemochromatosis type: unspecified
[2021-09-12 15:00] LABS: Partial Thromboplastin Time 90.4 SECONDS (23.9-36.7)
[2021-09-12 16:42] LABS: Glucose Point of Care 131 mg/dL (70-110)
[2021-09-12] MEDS: sevelamer 800 mg Tablet 2400 MG PO (17:01)
[2021-09-12] MEDS: ketorolac 30 mg/mL INJ 15 MG IVP (17:01)
--- NOTE | 2021-09-12 18:33 | PC.NURSE ---
awaiting results of ptt that was ordered at 1600
[2021-09-12 19:00] LABS: Partial Thromboplastin Time 25.1 SECONDS (23.9-36.7)
--- NOTE | 2021-09-12 19:00 | PC.NURSE ---
Received report from PORFIRIO Naylor. Patient is s/p [facility] with left femoral access. Sheath remains in place to pressure bag. Dressing to site is c,d,i with no s/s of bleeding or hematoma formation observed. Patient denies pain to site. Does c/o of persistent chest pain and mid back pain 05/02. Discussed plan for sheath removal. Patient verbalized complete understanding. No other distresses observed.
[2021-09-12] MEDS: temazepam 15 mg Capsule PO (19:37)
[2021-09-12] MEDS: fentaNYL 50 mcg/mL INJ 2mL IVP (19:38)
[2021-09-12] MEDS: atorvastatin 40 mg Tablet PO (19:38)
[2021-09-12] MEDS: clopidogrel 75 mg Tablet PO (19:38)
[2021-09-12 20:04] LABS: Glucose Point of Care 136 mg/dL (70-110)
--- NOTE | 2021-09-12 20:17 | PC.NURSE ---
Patient medicated pre-procedure for pain. Initiated sheath pull at ~1945. Hemostasis achieved immediately. Maintained pressure for 20min. No s/s of bleeding or hematoma formation observed. Covered site with gauze and bio-occlusive dressing. Instructed patient on site care and restrictions. Patient verbalized complete understanding stating that this was his third procedure this week. Patient reports some relief of pain 5/10 at this time. No other distress observed. VS remained wnl during procedure.
--- NOTE | 2021-09-12 21:42 | PC.NURSE ---
Dressing to left groin remain c,d,i. No bleeding, swelling or pain to site observed. Pulses remain palbable to left DP
[2021-09-13] VITALS (27 sets, daily range): BP systolic 107–133; BP diastolic 66–85; PULSE 66–80; RESP 9–24; TEMP 36.5–36.6; O2SAT 90–100
--- NOTE | 2021-09-13 02:06 | PC.NURSE ---
Dressing to left groin remains c,d,i. No s/s of bleeding or hematoma formation presently. Patient resting with eyes closed. No distress observed. VS as documented.
[2021-09-13] MEDS: ipratropium-albuterol 3 mL Neb INHALATION ×4 (02:11→20:13)
[2021-09-13 03:59] LABS: Basophils % 0.2 %; Eosinophils # 0.2 10^3/uL (0.0-0.8); Eosinophils % 2.1 %; Hematocrit 27.9 % (42.0-52.0); Hemoglobin 8.4 g/dL (11.7-16.6); Lymphocytes # 0.4 10^3/uL (0.8-4.8); Lymphocytes % 4.6 %; Mean Corpuscular HGB Conc 30.1 g/dL (30.0-36.0); Mean Corpuscular Hemoglobin 30.3 pg (28.0-34.0); Mean Corpuscular Volume 100.7 fl (80-94); Mean Platelet Volume 11.3 fL (7.4-10.4); Monocytes # 0.6 10^3/uL (0.2-0.9); Monocytes % 7.7 %; Neutrophils # 6.81 10^3/uL (1.8-7.7); Neutrophils % 84.9 %; Nucleated Red Blood Cells % 0 %; Platelet Count 201 10^3/cmm (130-400); Red Blood Count 2.77 10^6/uL (4.1-5.3); Red Cell Distribution Width 16.9 % (12.1-15.1)
[2021-09-13 04:48] LABS: Troponin T (5th) Once 348 ng/L (0-15)
[2021-09-13] MEDS: aspirin 81 mg EC Tablet PO (05:02)
[2021-09-13] MEDS: pantoprazole DR 40 mg Tablet PO (05:02)
[2021-09-13] MEDS: duloxetine 20 mg Capsule PO (05:02)
[2021-09-13] MEDS: predniSONE 10 mg Tablet PO (05:02)
--- NOTE | 2021-09-13 05:05 | PC.NURSE ---
Shift Note Frequent safety and comfort rounds continue. Orders and/or nursing care completed as indicated. Patient monitored for response to intervention and treatment(s). Education provided includes post [facility] site care. Patient verbalized complete understanding. Patient reports sleeping well through the night. Stated pain is ok this morning. Dressing to left groin remains c,d,i with no s/s of bleeding or hematoma formation observed. VS as documented. Will continue to monitor.
[2021-09-13 06:08] LABS: Glucose Point of Care 103 mg/dL (70-110)
--- NOTE | 2021-09-13 07:54 | PM.PN ---
Subjective Subjective: Interval history: Mr. Garcia feels a little better today. With less chest pain. Yesterday his pain was 7/10 and now it is 4/10. He had an angiogram and another artery was apparently opened. I do not see a report at this time. Defer to cardiology input. No shortness of breath, no extremity edema, no other symptoms of hypervolemia. Currently breathing comfortably on 2 L nasal cannula. Medications: Reviewed: Yes Medication Review Details: Current Medications Acetaminophen (Acetaminophen 325 Mg Tablet) 650 mg PO Q6H PRN PRN Reason: Mild/Mod Pain Or Temp >/= 101 Albuterol Sulfate (Albuterol 8 Gm Mdi) 2 puff INHALATION QID.RESPIRATORY PRN PRN Reason: shortness of breath or wheezing Albuterol/Ipratropium (Ipratropium-Albuterol 3 Ml Neb) 3 ml INHALATION Q6H.RESPIRATORY [facility] Last Admin: 09/12/21 09:19 Dose: 3 ml Documented by: Amlodipine Besylate (Amlodipine 5 Mg Tablet) 5 mg PO DAILY [facility] Last Admin: 09/12/21 09:52 Dose: 5 mg Documented by: Aspirin (Aspirin 81 Mg Ec Tablet) 81 mg PO QAM [facility] Last Admin: 09/12/21 05:19 Dose: 81 mg Documented by: Atorvastatin Calcium (Atorvastatin 40 Mg Tablet) 40 mg PO BEDTIME [facility] Last Admin: 09/11/21 21:02 Dose: 40 mg Documented by: Azathioprine (Azathioprine 50 Mg Tablet) 25 mg PO 0800 [facility] Last Admin: 09/11/21 10:35 Dose: 25 mg Documented by: Clopidogrel Bisulfate (Clopidogrel 75 Mg Tablet) 75 mg PO BEDTIME [facility] Last Admin: 09/11/21 21:02 Dose: 75 mg Documented by: Cyclobenzaprine HCl (Cyclobenzaprine 10 Mg Tablet) 10 mg PO TID [facility] Last Admin: 09/12/21 09:51 Dose: 10 mg Documented by: Dextrose (Dextrose 50% Syringe 50 Ml) 25 ml IVP ONCE PRN; Protocol PRN Reason: hypoglycemia protocol Dextrose (Dextrose 50% Syringe 50 Ml) 50 ml IVP PRN PRN; Protocol PRN Reason: hypoglycemia protocol Duloxetine HCl (Duloxetine 20 Mg Capsule) 20 mg PO QAM [facility] Last Admin: 09/12/21 05:19 Dose: 20 mg Documented by: Fluticasone Propionate (Fluticasone Nasal [place] 16gm Btl) 1 spray INTRANASAL BID PRN PRN Reason: Nasal Congestion Last Admin: 09/11/21 09:17 Dose: 1 spray Documented by: Glucagon (Glucagon 1 Mg/Ml Inj 1 Ml) 1 mg IM ONCE PRN; Protocol PRN Reason: Adult Acute Hypoglycemia Prot. Heparin Sodium (Porcine) (Heparin 5,000 Unit/Ml Inj 1 Ml) 0 unit IV PRN PRN; Protocol PRN Reason: Heparin weight-base protocol Last Admin: 09/07/21 22:18 Dose: 4,000 unit Documented by: Heparin Sodium (Porcine) (Heparin 5,000 Unit/Ml Inj 1 Ml) 5,000 unit SUBCUT Q12H JANNET Last Admin: 09/11/21 23:24 Dose: Not Given Documented by: Heparin Sodium/Sodium Chloride (Heparin Drip) 25,000 unit in 500 mls @ 0 mls/hr IV .Q0M JANNET; Protocol Last Titration: 09/08/21 03:30 Dose: 12.16 unit/kg/hr, 19.86 mls/hr Documented by: Dextrose (D5w) 500 mls @ 100 mls/hr IV ONCE PRN; Protocol PRN Reason: Adult Acute Hypoglycemia Prot Nitroglycerin/Dextrose (Nitroglycerin Drip) 50 mg in 250 mls @ 0 mls/hr IV .Q0M JANNET; Protocol Insulin Human Lispro (Insulin Lispro 100 Unit/1 Ml) 0 unit SUBCUT WM&BEDTIME JANNET; Protocol Last Admin: 09/12/21 09:49 Dose: Not Given Documented by: Isosorbide Mononitrate (Isosorbide Mononitrate Er 60 Mg Tablet) 60 mg PO DAILY [facility] Last Admin: 09/12/21 09:52 Dose: 60 mg Documented by: Ketorolac Tromethamine (Ketorolac 30 Mg/Ml Inj) 15 mg IVP Q6H PRN PRN Reason: MODERATE PAIN Stop: 09/14/21 11:31 Last Admin: 09/11/21 21:36 Dose: 15 mg Documented by: Lidocaine (Lidocaine 5% Patch) 1 patch TOPICAL [id number] [facility] Last Admin: 09/12/21 09:52 Dose: 1 patch Documented by: Lidocaine/Prilocaine (Lidocaine-Prilocaine Cream 5 Gm) 0 applic TOPICAL PRN PRN PRN Reason: use as directed over fistula Metoprolol Tartrate (Metoprolol Tartrate 25 Mg Tablet) 25 mg PO DAILY [facility] Last Admin: 09/12/21 09:55 Dose: 25 mg Documented by: Metoprolol Tartrate (Metoprolol Tartrate 25 Mg Tablet) 25 mg PO BID@0900,2100 [facility] Last Admin: 09/11/21 21:05 Dose: 25 mg Documented by: Nitroglycerin (Nitroglycerin 0.4 Mg Sublingual Tablet) 0.4 mg SUBLINGUAL Q5M PRN PRN Reason: Chest Pain Last Admin: 09/09/21 09:06 Dose: 1 applic Documented by: Ondansetron HCl (Ondansetron 2 Mg/Ml Sdv 2 Ml) 4 mg IVP Q8H PRN PRN Reason: vomiting, or N/V if npo Last Admin: 09/08/21 06:19 Dose: 4 mg Documented by: Ondansetron HCl (Ondansetron 2 Mg/Ml Sdv 2 Ml) 4 mg IVP Q2M PRN PRN Reason: NAUSEA Oxycodone HCl (Oxycodone 5 Mg Ir Tab/Cap) 5 mg PO BID PRN PRN Reason: MODERATE PAIN Last Admin: 09/12/21 05:18 Dose: 5 mg Documented by: Pantoprazole Sodium (Pantoprazole Dr 40 Mg Tablet) 40 mg PO QAM [facility] Last Admin: 09/12/21 05:18 Dose: 40 mg Documented by: Prednisone (Prednisone 10 Mg Tablet) 10 mg PO QAM [facility] Last Admin: 09/12/21 05:20 Dose: 10 mg Documented by: Pregabalin (Pregabalin 75 Mg Capsule) 75 mg PO BID [facility] Last Admin: 09/12/21 09:55 Dose: 75 mg Documented by: Promethazine HCl (Promethazine 25 Mg Tablet) 12.5 mg PO Q6H PRN PRN Reason: Nausea Sacubitril/Valsartan (Sacubitril/Valsartan 24-26 Mg Tablet) 1 each PO BID [facility] Last Admin: 09/12/21 09:51 Dose: 1 each Documented by: Sevelamer Carbonate (Sevelamer 800 Mg Tablet) 1,600 mg PO BID PRN PRN Reason: LARGE SNACKS Sevelamer Carbonate (Sevelamer 800 Mg Tablet) 2,400 mg PO TIDWM [facility] Last Admin: 09/12/21 09:49 Dose: Not Given Documented by: Vitals/I&O/Wt Last Vital Signs Temp 97.3 F L 09/12/21 19:06 Pulse 75 09/13/21 05:00 Resp 10 L 09/13/21 05:00 BP 107/75 09/13/21 05:00 Pulse Ox 96 09/13/21 05:00 09/12/21 09/13/21 09/13/21 22:59 06:59 14:59 Intake Total 360 / 600 Output Total 0 / 0 Balance 360 / 600 Weight last 48 hrs Weight 89.1 kg Physical Exam Narrative: EXAM NARRATIVE: Constitutional: Awake, comfortable HEENT: Wet mucosa, no jvp, non icteric Lungs: Bilaterally clear without discernible wheeze, rales in all lung zones CVS: S1 S2, no murmurs Abdo: Soft, BS ok Ext 4: Minimal edema, peripheral perfusion with no cyanosis Neurological: Grossly non-focal Data : 09/13/21 03:20 09/11/21 02:26 A&P Additional A&P Information 1. ESRD He received dialysis on Tuesday. Of note, there is no clinical evidence to remove contrast dye (unlike gadolinium), and I would only do so if there was concerns about pulmonary edema. We will plan to do dialysis tomorrow. 3K, UF 3L Dose medication for GFR less than 15 2. CAD S/p 3rd LHC with intervention. Mgmt per Cardiology Symptoms are now improving 3. Hemodynamics Blood pressure looks good. 4. Chronic ESRD issues to be addressed as outpatient as part of standard monthly management. Hb drifting down a little and I will watch closely. Rei Jacob MD Nephrology [phone] Patient seen and examined via telemedicine, with the assistance of the bedside RN > 25 min spent in evaluation and mgmt of patient Attestations Medical Necessity Statement*: Eval for ESRD Coding Level of Care Code Acute Sheet Sewer for Ger Godfrey
[2021-09-13] MEDS: pregabalin 75 mg Capsule PO ×2 (08:06→17:23)
[2021-09-13] MEDS: cyclobenzaprine 10 mg Tablet PO ×3 (08:06→20:57)
[2021-09-13] MEDS: isosorbide mononitrate ER 60 mg Tablet PO (08:08)
[2021-09-13] MEDS: amlodipine 5 mg Tablet PO (08:08)
[2021-09-13] MEDS: oxyCODONE 5 mg IR Tab/Cap PO ×2 (08:08→16:13)
[2021-09-13] MEDS: sevelamer 800 mg Tablet 2400 MG PO ×3 (08:08→17:23)
[2021-09-13] MEDS: metoprolol tartrate 25 mg Tablet PO ×2 (08:11→20:57)
[2021-09-13] MEDS: lidocaine 5% Patch 1 PATCH TOPICAL (08:11)
[2021-09-13 08:35] LABS: Anion Gap 19.4 (5-19); Blood Urea Nitrogen 39 mg/dL (6-20); Calcium 8.1 mg/dL (8.5-10.5); Carbon Dioxide 26 mmol/L (22-29); Chloride 92 mmol/L (98-107); Glomerular Filtration Rate 7.1 mL/min (90-130); Glucose 86 mg/dL (65-115); Osmolality Calculated 285 mOsm/kg (285-295); Potassium 4.4 mmol/L (3.5-5.1); Sodium 133 mmol/L (136-145)
--- NOTE | 2021-09-13 09:00 | PC.NURSE ---
Pt lying in bed watching tv. Pt resp even and non-labored no sob or distress noted. Pt c/o pain in back and chest 01/31. Pts VS wnl, call light in reach. Will cont to monitor.
--- NOTE | 2021-09-13 10:38 | PM.PN ---
Subjective Subjective: Interval history: Patient had a repeat cardiac colorization yesterday. He had the IFR of the ostial/proximal circumflex artery lesion. This was within normal limits. He continues to have the chest pains. Most likely this is related to his cervical spine disease causing some form of nerve compression. EKG does not reveal any new changes. No evidence of myocardial injury. Medications: Reviewed: Yes Medication Review Details: Current Medications Acetaminophen (Acetaminophen 325 Mg Tablet) 650 mg PO Q6H PRN PRN Reason: Mild/Mod Pain Or Temp >/= 101 Acetaminophen (Acetaminophen 325 Mg Tablet) 650 mg PO Q6H PRN PRN Reason: MILD PAIN Al Hydrox/Mg Hydrox/Simethicone (Gndi-Bea-Utvrssyqq-Maninder 30 Ml Udc) 30 ml PO Q15M PRN PRN Reason: INDIGESTION Albuterol Sulfate (Albuterol 8 Gm Mdi) 2 puff INHALATION QID.RESPIRATORY PRN PRN Reason: shortness of breath or wheezing Albuterol/Ipratropium (Ipratropium-Albuterol 3 Ml Neb) 3 ml INHALATION Q6H.RESPIRATORY [facility] Last Admin: 09/13/21 08:50 Dose: 3 ml Documented by: Alprazolam (Alprazolam 0.5 Mg Tablet) 0.25 mg PO TID PRN PRN Reason: ANXIETY Amlodipine Besylate (Amlodipine 5 Mg Tablet) 5 mg PO DAILY [facility] Last Admin: 09/13/21 08:08 Dose: 5 mg Documented by: Aspirin (Aspirin 81 Mg Ec Tablet) 81 mg PO QAM [facility] Last Admin: 09/13/21 05:02 Dose: 81 mg Documented by: Atorvastatin Calcium (Atorvastatin 40 Mg Tablet) 40 mg PO BEDTIME [facility] Last Admin: 09/12/21 19:38 Dose: 40 mg Documented by: Atropine Sulfate (Atropine 1 Mg/Ml Sdv 1 Ml) 0.5 mg IVP PRN PRN PRN Reason: Symptomatic bradycardia Azathioprine (Azathioprine 50 Mg Tablet) 25 mg PO 0800 [facility] Last Admin: 09/13/21 08:06 Dose: 25 mg Documented by: Clopidogrel Bisulfate (Clopidogrel 75 Mg Tablet) 75 mg PO BEDTIME [facility] Last Admin: 09/12/21 19:38 Dose: 75 mg Documented by: Cyclobenzaprine HCl (Cyclobenzaprine 10 Mg Tablet) 10 mg PO TID [facility] Last Admin: 09/13/21 08:06 Dose: 10 mg Documented by: Dextrose (Dextrose 50% Syringe 50 Ml) 25 ml IVP ONCE PRN; Protocol PRN Reason: hypoglycemia protocol Dextrose (Dextrose 50% Syringe 50 Ml) 50 ml IVP PRN PRN; Protocol PRN Reason: hypoglycemia protocol Duloxetine HCl (Duloxetine 20 Mg Capsule) 20 mg PO QAM [facility] Last Admin: 09/13/21 05:02 Dose: 20 mg Documented by: Fentanyl (Fentanyl 50 Mcg/Ml Inj 2ml) 50 mcg IVP PRN PRN PRN Reason: pain Last Admin: 09/12/21 19:38 Dose: 50 mcg Documented by: Fluticasone Propionate (Fluticasone Nasal [place] 16gm Btl) 1 spray INTRANASAL BID PRN PRN Reason: Nasal Congestion Last Admin: 09/11/21 09:17 Dose: 1 spray Documented by: Glucagon (Glucagon 1 Mg/Ml Inj 1 Ml) 1 mg IM ONCE PRN; Protocol PRN Reason: Adult Acute Hypoglycemia Prot. Heparin Sodium (Porcine) (Heparin 5,000 Unit/Ml Inj 1 Ml) 5,000 unit SUBCUT Q12H [facility] Last Admin: 09/13/21 01:10 Dose: Not Given Documented by: Dextrose (D5w) 500 mls @ 100 mls/hr IV ONCE PRN; Protocol PRN Reason: Adult Acute Hypoglycemia Prot Nitroglycerin/Dextrose (Nitroglycerin Drip) 50 mg in 250 mls @ 0 mls/hr IV .Q0M [facility]; Protocol Insulin Human Lispro (Insulin Lispro 100 Unit/1 Ml) 0 unit SUBCUT WM&BEDTIME [facility]; Protocol Last Admin: 09/13/21 08:11 Dose: Not Given Documented by: Isosorbide Mononitrate (Isosorbide Mononitrate Er 60 Mg Tablet) 60 mg PO DAILY [facility] Last Admin: 09/13/21 08:08 Dose: 60 mg Documented by: Ketorolac Tromethamine (Ketorolac 30 Mg/Ml Inj) 15 mg IVP Q6H PRN PRN Reason: MODERATE PAIN Stop: 09/14/21 11:31 Last Admin: 09/12/21 17:01 Dose: 15 mg Documented by: Lidocaine (Lidocaine 5% Patch) 1 patch TOPICAL [id number] [facility] Last Admin: 09/13/21 08:11 Dose: 1 patch Documented by: Lidocaine/Prilocaine (Lidocaine-Prilocaine Cream 5 Gm) 0 applic TOPICAL PRN PRN PRN Reason: use as directed over fistula Magnesium Hydroxide (Magnesium Hydroxide 30 Ml Udc) 30 ml PO DAILY PRN PRN Reason: CONSTIPATION Metoprolol Tartrate (Metoprolol Tartrate 25 Mg Tablet) 25 mg PO BID@0900,2100 [facility] Last Admin: 09/13/21 08:11 Dose: 25 mg Documented by: Naloxone HCl (Naloxone 0.4 Mg/Ml Sdv) 0.1 mg IVP Q2M PRN PRN Reason: RESPIRATORY RATE < 8/MIN Nitroglycerin (Nitroglycerin 0.4 Mg Sublingual Tablet) 0.4 mg SUBLINGUAL Q5M PRN PRN Reason: Chest Pain Last Admin: 09/09/21 09:06 Dose: 1 applic Documented by: Nitroglycerin (Nitroglycerin 0.4 Mg Sublingual Tablet) 0.4 mg SUBLINGUAL Q5M PRN PRN Reason: CHEST PAIN Ondansetron HCl (Ondansetron 2 Mg/Ml Sdv 2 Ml) 4 mg IVP Q8H PRN PRN Reason: vomiting, or N/V if npo Last Admin: 09/08/21 06:19 Dose: 4 mg Documented by: Ondansetron HCl (Ondansetron 2 Mg/Ml Sdv 2 Ml) 4 mg IVP Q2M PRN PRN Reason: NAUSEA Oxycodone HCl (Oxycodone 5 Mg Ir Tab/Cap) 5 mg PO BID PRN PRN Reason: MODERATE PAIN Last Admin: 09/13/21 08:08 Dose: 5 mg Documented by: Pantoprazole Sodium (Pantoprazole Dr 40 Mg Tablet) 40 mg PO [facility] Last Admin: 09/13/21 05:02 Dose: 40 mg Documented by: Prednisone (Prednisone 10 Mg Tablet) 10 mg PO [facility] Last Admin: 09/13/21 05:02 Dose: 10 mg Documented by: Pregabalin (Pregabalin 75 Mg Capsule) 75 mg PO BID [facility] Last Admin: 09/13/21 08:06 Dose: 75 mg Documented by: Promethazine HCl (Promethazine 25 Mg Tablet) 12.5 mg PO Q6H PRN PRN Reason: Nausea Sacubitril/Valsartan (Sacubitril/Valsartan 24-26 Mg Tablet) 1 each PO BID [facility] Last Admin: 09/12/21 09:51 Dose: 1 each Documented by: Sevelamer Carbonate (Sevelamer 800 Mg Tablet) 1,600 mg PO BID PRN PRN Reason: LARGE SNACKS Sevelamer Carbonate (Sevelamer 800 Mg Tablet) 2,400 mg PO TIDWM [facility] Last Admin: 09/13/21 08:08 Dose: 2,400 mg Documented by: Temazepam (Temazepam 15 Mg Capsule) 15 mg PO BEDTIME PRN PRN Reason: INSOMNIA Last Admin: 09/12/21 19:37 Dose: 15 mg Documented by: Vitals/I&O/Wt Last Vital Signs Temp 97.3 F L 09/12/21 19:06 Pulse 73 09/13/21 08:53 Resp 16 09/13/21 08:53 BP 133/85 09/13/21 08:00 Pulse Ox 99 09/13/21 08:53 09/12/21 09/13/21 09/13/21 22:59 06:59 14:59 Intake Total 360 / 600 Output Total 0 / 0 Balance 360 / 600 Weight last 48 hrs Weight 196 lb 6.91 oz Physical Exam Narrative: EXAM NARRATIVE: GENERAL: The patient is alert and oriented times three. Not in any acute distress. HEENT: Minimal pallor. No, icterus or lymphadenopathy.Oral cavity: There are no mucous membrane lesions. NECK: Trachea appears to be central. No masses noted. No JVD or thyromegaly appreciated. RESPIRATORY: Chest is symmetrical. No intercostals muscle retraction or any accessory muscle activation. There is no chest wall tenderness. Breath sounds are heard bilaterally. No rales or rhonchi heard. No evidence of any consolidation. BREASTS: Deferred. HEART: The heart sounds are normal. No S3 or S4. Short systolic murmur the left sternal border and also at the base of the heart. No diastolic murmurs.. No pericardial rub ABDOMEN: No vessel pulsations or distention. No tenderness. No organomegaly appreciated. Bowel sounds are normally heard. : Deferred. RECTAL: Deferred. LYMPHATIC: No lymphadenopathy noted in the neck or groin. EXTREMITIES: No hematoma or bleeding from the right groin. MUSCULOSKELETAL: No acute joint deformities or swelling. SKIN: There are no significant rashes or ecchymosis NEUROPSYCHIATRIC: The patient is alert and oriented x3. Appears to be in a good mood. No tremors or rigidity noted. Data : 09/13/21 03:20 09/13/21 07:30 Other Labs: Laboratory Last Values WBC 8.0 10^3/uL (4.0-10.0) 09/13/21 03:20 RBC 2.77 10^6/uL (4.1-5.3) L 09/13/21 03:20 Hgb 8.4 g/dL (11.7-16.6) L 09/13/21 03:20 Hct 27.9 % (42.0-52.0) L 09/13/21 03:20 MCV 100.7 fl (80-94) H 09/13/21 03:20 MCH 30.3 pg (28.0-34.0) 09/13/21 03:20 MCHC 30.1 g/dL (30.0-36.0) 09/13/21 03:20 RDW 16.9 % (12.1-15.1) H 09/13/21 03:20 Plt Count 201 10^3/cmm (130-400) 09/13/21 03:20 MPV 11.3 fL (7.4-10.4) H 09/13/21 03:20 Neut % (Auto) 84.9 % 09/13/21 03:20 Lymph % (Auto) 4.6 % 09/13/21 03:20 [place] % (Auto) 7.7 % 09/13/21 03:20 Eos % (Auto) 2.1 % 09/13/21 03:20 Baso % (Auto) 0.2 % 09/13/21 03:20 Neut # (Auto) 6.81 10^3/uL (1.8-7.7) 09/13/21 03:20 Lymph # (Auto) 0.4 10^3/uL (0.8-4.8) L 09/13/21 03:20 [place] # (Auto) 0.6 10^3/uL (0.2-0.9) 09/13/21 03:20 Eos # (Auto) 0.2 10^3/uL (0.0-0.8) 09/13/21 03:20 Baso # (Auto) 0.0 10^3/uL (0.0-0.1) 09/13/21 03:20 Nucleated RBC % (auto) 0 % 09/13/21 03:20 Nucleated RBCs # 0.0 /100WBC 09/13/21 03:20 APTT 25.1 SECONDS (23.9-36.7) D 09/12/21 18:06 Sodium 133 mmol/L (136-145) L 09/13/21 07:30 Potassium 4.4 mmol/L (3.5-5.1) 09/13/21 07:30 Chloride 92 mmol/L (98-107) L 09/13/21 07:30 Carbon Dioxide 26 mmol/L (22-29) 09/13/21 07:30 Anion Gap 19.4 (5-19) H 09/13/21 07:30 BUN 39 mg/dL (6-20) H 09/13/21 07:30 Creatinine 8.0 mg/dL (0.7-1.2) H* 09/13/21 07:30 GFR Calculation 7.1 mL/min (90-130) L 09/13/21 07:30 Glucose 86 mg/dL (65-115) 09/13/21 07:30 POC Glucose 103 mg/dL (70-110) 09/13/21 05:59 Calculated Osmolality 285 mOsm/kg (285-295) 09/13/21 07:30 Calcium 8.1 mg/dL (8.5-10.5) L 09/13/21 07:30 Magnesium 1.9 mg/dL (1.7-2.3) 09/07/21 15:38 Total Bilirubin 1.5 mg/dL (0.15-1.2) H 09/08/21 02:38 AST 13 U/L (0-40) 09/08/21 02:38 ALT 7 U/L (0-41) 09/08/21 02:38 Alkaline Phosphatase 91 IU/L (40-130) 09/08/21 02:38 Troponin T Gen 5 ng/L 348 ng/L (0-15) H* 09/13/21 03:20 Troponin T Baseline 246 ng/L (0-15) H* 09/07/21 15:38 Troponin T 120 Minute 213.9 ng/L (0-15) H 09/07/21 17:38 Delta Troponin T -32.1 ABS# (0-10) L 09/07/21 17:38 Troponin T Hi Sens 6Hr 223.5 ng/L (0-15) H 09/07/21 21:24 Troponin T Hi Sens 6Hr Delta -22.5 ng/L (0-12) L 09/07/21 21:24 NT-Pro-B Natriuret Pep > 01205 pg/mL (0-125) H 09/07/21 15:38 Total Protein 6.7 g/dL (6.6-8.7) 09/08/21 02:38 Albumin 3.9 g/dL (3.5-5.2) 09/08/21 02:38 Globulin 2.8 g/dL (1.3-4.6) 09/08/21 02:38 Lipase 33 U/L (13-60) 09/07/21 15:38 SARS-CoV-2 Ag (Rapid) Negative (Negative) 09/07/21 16:16 A&P Assessment and plan (1) Atypical chest pain: The patient's current chest pain is most likely cardiac in origin. He may benefit from orthopedic/neurosurgery consult to further evaluate the symptoms. Status: Acute (2) Atherosclerotic heart disease of [place] coronary artery with other forms of angina pectoris: Patient status post PCI of the proximal LAD, plain old balloon angioplasty of the ostium of the diagonal, and PCI of the intermedius artery. From the cardiac standpoint, the patient seems to be stable. We will continue on the current medications. Status: Acute (3) Anemia: Her hemoglobin seems to be stable. May continue on the current medications. Status: Acute Qualifiers: Anemia type: unspecified type Qualified Code(s): D64.9 - Anemia, unspecified (4) Hemochromatosis: Patient is being followed by Dr. Colon. Status: Acute Qualifiers: Hemochromatosis type: unspecified Qualified Code(s): E83.119 - Hemochromatosis, unspecified (5) Ischemic cardiomyopathy: Since the patient has no evidence of any cardiac decompensation, is advised to continue on the current measures. The current medications were reviewed. Hemochromatosis causing liver dysfunction cannot be excluded. Status: Acute (6) Mixed hyperlipidemia: Continue on the current management. Follow-up evaluation as scheduled. Status: Acute (7) ESRD (end stage renal disease): Patient is on hemodialysis. Evaluation and management as per the nephrology service. Status: Acute Additional A&P Information If the patient continues remain stable otherwise, may be discharged home from a cardiac standpoint. We will continue on the current medications. Will be seen at [facility] next week by the nurse practitioner. I may see him in the office in 1 month. Attestations Medical Necessity Statement*: Possible discharge home today Coding Level of Care Code Acute Gis Technician for Ger Fwjaycee History Detailed Exam Detailed Medical Decision Making Moderate Complexity Diagnoses Atypical chest pain R07.89 Atherosclerotic heart disease of [place] coronary artery with other forms of angina pectoris I25.118 Anemia D64.9 Anemia type: unspecified type Hemochromatosis E83.119 Hemochromatosis type: unspecified Ischemic cardiomyopathy I25.5 Mixed hyperlipidemia E78.2 ESRD (end stage renal disease) N18.6
[2021-09-13 11:51] LABS: Glucose Point of Care 158 mg/dL (70-110)
[2021-09-13] MEDS: heparin 5,000 unit/mL INJ 1 mL 5000 UNIT SUBCUT (11:55)
[2021-09-13] MEDS: insulin lispro 100 unit/1 mL SUBCUT ×2 (11:55→17:23)
--- NOTE | 2021-09-13 12:11 | PM.DCS ---
Discharge Providers Date of Admission: 09/07/21 19:28 Date of Discharge: September 13, 2021 Attending Provider at Admission: Sailaja Carvajal MD Attending Provider at Discharge: Kei Solitario MD Primary Care Provider: Michael Eubanks DO Diagnoses at Discharge Discharge Diagnosis (1) Atypical chest pain: Status: Acute (2) Atherosclerotic heart disease of [place] coronary artery with other forms of angina pectoris: Status: Acute (3) Anemia: Status: Acute Qualifiers: Anemia type: unspecified type Qualified Code(s): D64.9 - Anemia, unspecified (4) Hemochromatosis: Status: Acute Qualifiers: Hemochromatosis type: unspecified Qualified Code(s): E83.119 - Hemochromatosis, unspecified (5) Ischemic cardiomyopathy: Status: Acute (6) Mixed hyperlipidemia: Status: Acute Reason for Visit Reason for Visit: CP Hospital Course Hospital Course Patient was admitted for evaluation of chest pain, he was diagnosed with NSTEMI at the time of admission, for his persistent chest pain next day he went for the cardiac catheterization, and his first angiogram he received a stent in his proximal LAD however his chest pain persisted and next day he went for another angiogram and received a stent in intermedius artery, his chest pain did not resolve, CTA was requested which ruled out PE, no signs of aortic dissection, cervical and lumbar spine CT scan did show disc bulging and postoperative/surgical changes, patient chest pain does improve on leaning forward, he is describing his pain as someone's putting feet on his chest, patient was taken to the cardiac Medical Records Specialist third time after positive stress test, stress test did show reversible ischemia in RCA and circumflex territory however during angiogram FFR did show nonspecific changes, patient was started on therapeutic dose of steroids for 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 At home he does take prednisone 10 mg along azathioprine. In total he went to the cardiac Medical Records Specialist 3 times :-stent in proximal LAD and intermedius, FFR of right circumflex and right coronary nonspecific. Cardiac cath reports are pending. He did get dialyzed after his contrast studies and on Tuesday schedule. Dr. Landis was following along. Dr. Landis will see him in his clinic for AICD evaluation, he has refused LifeVest in the past. updated. Not a candidate of Ranexa secondary to end-stage renal disease as per Dr. Landis. He has increased his Imdur to 60 mg daily. Physical Exam Narrative: EXAM NARRATIVE: Patient appears more than stated age Complaining of chest pain which gets better on changing his position S1, S2 Looks euvolemic Left arm fistula Abdomen soft EOMI, PERRLA Awake alert 20x3 GCS 15 Discharge Data Data Completed and Pending: Completed Studies During Hospitalization Category Date Time Status CT angio chest PE protcl 69659 Rout ine Cat Scan 09/10/21 08:[address] cervical spin wo con* [id number] Rout ine Cat Scan 09/10/21 14:[address] lumbar spine w o con* [id number] Routi ne Cat Scan 09/10/21 14:25 Completed Sestamibi Stress Test Request Routi ne Exams 09/10/21 14:27 Draft XR chest 1V melva ble [id number] Stat Exams 09/07/21 15:58 Completed NM dipesh perf SPECT r/s* [id number] Routin e Nuc Med 09/11/21 Completed CV. echo limited [id number] Routine Ultrasound 09/08/21 23:20 Completed CV. echo limited [id number] Stat Ultrasound 09/09/21 10:24 Completed Pending at discharge Category Date Time Status CANDY STARCH MOLD PRINTER request for service Routin e Exams 09/08/21 09:51 Taken CANDY STARCH MOLD PRINTER request for service Routin e Exams 09/09/21 09:31 Taken CANDY STARCH MOLD PRINTER request for service Routin e Exams 09/12/21 10:13 Taken Labs from last 24 hours 09/13/21 09/13/21 09/13/21 11:47 07:30 05:59 WBC RBC Hgb Hct MCV MCH MCHC RDW Plt Count MPV Neut % (Auto) Lymph % (Auto) [place] % (Auto) Eos % (Auto) Baso % (Auto) Neut # (Auto) Lymph # (Auto) [place] # (Auto) Eos # (Auto) Baso # (Auto) Nucleated RBC % (a uto) Nucleated RBCs # APTT Sodium 133 L Potassium 4.4 Chloride 92 L Carbon Dioxide 26 Anion Gap 19.4 H BUN 39 H Creatinine 8.0 H* GFR Calculation 7.1 L Glucose 86 POC Glucose 158 H 103 Calculated Osmolal ity 285 Calcium 8.1 L Troponin T Gen 5 n g/L 09/13/21 09/13/21 09/13/21 03:20 03:20 03:20 WBC 8.0 RBC 2.77 L Hgb 8.4 L Hct 27.9 L MCV 100.7 H MCH 30.3 MCHC 30.1 RDW 16.9 H Plt Count 201 MPV 11.3 H Neut % (Auto) 84.9 Lymph % (Auto) 4.6 [place] % (Auto) 7.7 Eos % (Auto) 2.1 Baso % (Auto) 0.2 Neut # (Auto) 6.81 Lymph # (Auto) 0.4 L [place] # (Auto) 0.6 Eos # (Auto) 0.2 Baso # (Auto) 0.0 Nucleated RBC % (a uto) 0 Nucleated RBCs # 0.0 APTT Sodium Cancelled Potassium Cancelled Chloride Cancelled Carbon Dioxide Cancelled Anion Gap Cancelled BUN Cancelled Creatinine Cancelled GFR Calculation Cancelled Glucose Cancelled POC Glucose Calculated Osmolal ity Cancelled Calcium Cancelled Troponin T Gen 5 n g/L 348 H* 09/12/21 09/12/21 09/12/21 19:59 18:06 16:39 WBC RBC Hgb Hct MCV MCH MCHC RDW Plt Count MPV Neut % (Auto) Lymph % (Auto) [place] % (Auto) Eos % (Auto) Baso % (Auto) Neut # (Auto) Lymph # (Auto) [place] # (Auto) Eos # (Auto) Baso # (Auto) Nucleated RBC % (a uto) Nucleated RBCs # APTT 25.1 D Sodium Potassium Chloride Carbon Dioxide Anion Gap BUN Creatinine GFR Calculation Glucose POC Glucose 136 H 131 H Calculated Osmolal ity Calcium Troponin T Gen 5 n g/L 09/12/21 09/12/21 14:13 12:45 WBC RBC Hgb Hct MCV MCH MCHC RDW Plt Count MPV Neut % (Auto) Lymph % (Auto) [place] % (Auto) Eos % (Auto) Baso % (Auto) Neut # (Auto) Lymph # (Auto) [place] # (Auto) Eos # (Auto) Baso # (Auto) Nucleated RBC % (a uto) Nucleated RBCs # APTT 90.4 H Sodium Potassium Chloride Carbon Dioxide Anion Gap BUN Creatinine GFR Calculation Glucose POC Glucose 169 H Calculated Osmolal ity Calcium Troponin T Gen 5 n g/L Vitals: Last Vital Signs Temp 97.3 F L 09/12/21 19:06 Pulse 73 09/13/21 08:53 Resp 16 09/13/21 08:53 BP 133/85 09/13/21 08:00 Pulse Ox 99 09/13/21 08:53 Discharge Plan Discharge Patient Disposition: Home Condition: Stable Prescriptions: New isosorbide mononitrate 60 mg tablet extended release 24 hr 60 mg PO DAILY Qty: 90 RF: 1 Continued promethazine 12.5 mg tablet 12.5 mg PO Q6H PRN (Reason: Nausea) RF: 0 albuterol sulfate 90 mcg/actuation HFA aerosol inhaler 2 puff inhalation QID PRN (Reason: shortness of breath or wheezing) 30 Days Qty: 8.5 RF: 2 nitroglycerin [Nitrostat] 0.4 mg tablet, sublingual 0.4 mg SUBLINGUAL Q5M PRN (Reason: Chest Pain) RF: 0 pregabalin [Lyrica] 75 mg capsule 75 mg PO BID RF: 0 fluticasone propionate [Flonase Allergy Relief] 50 mcg/actuation spray,suspension 1 spray intranasal BID PRN (Reason: Nasal Congestion) RF: 0 lidocaine-prilocaine 2.5-2.5 % cream See Rx Instructions .ROUTE .COMPLEX RF: 0 sevelamer HCl 800 mg tablet See Rx Instructions .ROUTE .COMPLEX RF: 0 azathioprine 50 mg tablet See Rx Instructions .ROUTE .COMPLEX RF: 0 pantoprazole 40 mg tablet,delayed release (DR/EC) 40 mg PO QAM RF: 0 oxycodone 5 mg tablet 5 mg PO BID PRN (Reason: Pain) RF: 0 atorvastatin 40 mg Tablet 40 mg PO BEDTIME Qty: 90 RF: 3 aspirin 81 mg tablet,delayed release (DR/EC) 81 mg PO QAM Qty: 30 RF: 3 prednisone 10 mg tablet 10 mg PO QAM RF: 0 duloxetine 20 mg capsule,delayed release(DR/EC) 20 mg PO QAM RF: 0 Entresto 24-26 mg Tablet 1 tab PO BID Qty: 90 RF: 0 Changed clopidogrel 75 mg tablet 75 mg PO BEDTIME Qty: 30 RF: 3 metoprolol tartrate 50 mg tablet 25 mg PO BIDWMEAL Qty: 60 RF: 2 Discontinued isosorbide mononitrate 30 mg tablet extended release 24 hr 30 mg PO BEDTIME RF: 0 Discharge Orders: Discharge Order (Routine); Ordered 09/13/21 Ordered By: Kei Solitario Referrals: Isauro Landis MD [Physician] - 1-3 days ([facility] will be calling to schedule a cardiology followup to be seen in 1 to 3 days. If you don't hear from them by Tuesday afternoon, please give them a call. Thank you ) Michael Eubanks DO [Primary Care Provider] - 1 week Discharge Diet: Cardiac Discharge Activity: Increase activity as tolerated Patient Instructions: Isosorbide Mononitrate (By mouth) (Imdur, Imdur ER, Ismo), Angina (DC), Coronary Angioplasty (DC), Opioid Safety Discharge Attestations Time Spent in Discharge Care*: less than 30 min Status at Discharge: Cognitive status at discharge: cognitively intact, Behavioral status at discharge: cooperative and independent in ADL's, Quality Metrics Clinical Quality Measures During this hospital stay, did patient experience: None Coding Level of Care Code Acute Chg FW DC note Diagnoses Atypical chest pain R07.89 Atherosclerotic heart disease of [place] coronary artery with other forms of angina pectoris I25.118 Anemia D64.9 Anemia type: unspecified type Hemochromatosis E83.119 Hemochromatosis type: unspecified Ischemic cardiomyopathy I25.5 Mixed hyperlipidemia E78.2
[2021-09-13 17:07] LABS: Glucose Point of Care 150 mg/dL (70-110)
[2021-09-13 20:22] LABS: Glucose Point of Care 95 mg/dL (70-110)
[2021-09-13] MEDS: temazepam 15 mg Capsule PO (20:57)
[2021-09-13] MEDS: predniSONE 20 mg Tablet 40 MG PO (20:57)
[2021-09-13] MEDS: clopidogrel 75 mg Tablet PO (20:58)
[2021-09-13] MEDS: atorvastatin 40 mg Tablet PO (20:58)
[2021-09-13] MEDS: ALPRAZolam 0.5 mg Tablet 0.25 MG PO (21:02)
[2021-09-14] VITALS (19 sets, daily range): BP systolic 126–144; BP diastolic 70–82; PULSE 69–89; RESP 14–26; TEMP 36.3–36.8; O2SAT 91–100
[2021-09-14] MEDS: ipratropium-albuterol 3 mL Neb INHALATION ×2 (02:58→20:26)
[2021-09-14] MEDS: cyclobenzaprine 10 mg Tablet PO ×3 (03:47→19:18)
--- NOTE | 2021-09-14 03:48 | PC.NURSE ---
Around 0315: Patient c/o of discomfort. Notified Dr. Carvajal. Orders received, see DEC.
[2021-09-14] MEDS: pantoprazole DR 40 mg Tablet PO (05:47)
[2021-09-14] MEDS: aspirin 81 mg EC Tablet PO (05:47)
[2021-09-14] MEDS: duloxetine 20 mg Capsule PO (05:47)
[2021-09-14 06:25] LABS: Glucose Point of Care 168 mg/dL (70-110)
--- NOTE | 2021-09-14 07:00 | PC.NURSE ---
Patient taken to dialysis.
--- NOTE | 2021-09-14 09:12 | PC.CHAP ---
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 visit [] Patient/Family/Request visit [] Outpatient visit [] Follow-up visit [] Physician referral [] Code/Alert [] Routine visit [] Staff referral [] Actively dying [] Patient sleeping [] Family support [] [x] Out of room [] Palliative care [] [] Receiving care in room [] Pre-surgical visit [] Trauma [] Long length of stay [] ICU visit [x] Other: testing Relational/Emotional Strength [] Patient feels connected with others/family/visitors/staff [] Distress [] Loneliness/isolation [] Abandonment Spirituality of Patient [] Person of Ashley [] Attends Islam of their [place] [] Believes in Prayer [] Reads Bible or Jehovah'S Witness materials [] There are Spiritual issues to be addressed Spaghetti Press Helper Interventions [x] Prayer [] Active listening [] Non-anxious presence [] Spiritual/emotional support [] Crisis/trauma care [] Spiritual counseling [] Bereavement support [] Provided bereavement packet [] Provided Bible/devotional materials [] Provided toy/stuffed animal, coloring book to patient or family member [] Provided Communion [] Anointing/[place] [] Salvation [x] Completed spiritual assessment [] Other: Impact on Illness or Injury [] Angry [] Fearful [] Anxious [] Often cries [] Exhaustion [] Unable to work [] Unable to attend yarsani [] Unable to walk/stand [] Unable to read [] Unable to drive [] Unable to eat/drink [] Unable to sleep [] Unable to be with family [] Patient intubated [] Other: Summary Time spent with patient
--- NOTE | 2021-09-14 11:26 | PM.PN ---
Subjective Subjective: Interval history: Seen and examined on hemodialysis today. He still has chest discomfort which is similar in intensity to yesterday. Some mild subjective shortness of breath. Dialysis going well. Hemodialysis and hemodynamic parameters are reviewed. Medications: Reviewed: Yes Medication Review Details: Current Medications Acetaminophen (Acetaminophen 325 Mg Tablet) 650 mg PO Q6H PRN PRN Reason: Mild/Mod Pain Or Temp >/= 101 Acetaminophen (Acetaminophen 325 Mg Tablet) 650 mg PO Q6H PRN PRN Reason: MILD PAIN Al Hydrox/Mg Hydrox/Simethicone (Gkww-Lsf-Ydqfsmdmp-Maninder 30 Ml Udc) 30 ml PO Q15M PRN PRN Reason: INDIGESTION Albuterol Sulfate (Albuterol 8 Gm Mdi) 2 puff INHALATION QID.RESPIRATORY PRN PRN Reason: shortness of breath or wheezing Albuterol/Ipratropium (Ipratropium-Albuterol 3 Ml Neb) 3 ml INHALATION Q6H.RESPIRATORY [facility] Last Admin: 09/13/21 08:50 Dose: 3 ml Documented by: Alprazolam (Alprazolam 0.5 Mg Tablet) 0.25 mg PO TID PRN PRN Reason: ANXIETY Amlodipine Besylate (Amlodipine 5 Mg Tablet) 5 mg PO DAILY [facility] Last Admin: 09/13/21 08:08 Dose: 5 mg Documented by: Aspirin (Aspirin 81 Mg Ec Tablet) 81 mg PO QAM [facility] Last Admin: 09/13/21 05:02 Dose: 81 mg Documented by: Atorvastatin Calcium (Atorvastatin 40 Mg Tablet) 40 mg PO BEDTIME [facility] Last Admin: 09/12/21 19:38 Dose: 40 mg Documented by: Atropine Sulfate (Atropine 1 Mg/Ml Sdv 1 Ml) 0.5 mg IVP PRN PRN PRN Reason: Symptomatic bradycardia Azathioprine (Azathioprine 50 Mg Tablet) 25 mg PO 0800 [facility] Last Admin: 09/13/21 08:06 Dose: 25 mg Documented by: Clopidogrel Bisulfate (Clopidogrel 75 Mg Tablet) 75 mg PO BEDTIME [facility] Last Admin: 09/12/21 19:38 Dose: 75 mg Documented by: Cyclobenzaprine HCl (Cyclobenzaprine 10 Mg Tablet) 10 mg PO TID [facility] Last Admin: 09/13/21 08:06 Dose: 10 mg Documented by: Dextrose (Dextrose 50% Syringe 50 Ml) 25 ml IVP ONCE PRN; Protocol PRN Reason: hypoglycemia protocol Dextrose (Dextrose 50% Syringe 50 Ml) 50 ml IVP PRN PRN; Protocol PRN Reason: hypoglycemia protocol Duloxetine HCl (Duloxetine 20 Mg Capsule) 20 mg PO QAM [facility] Last Admin: 09/13/21 05:02 Dose: 20 mg Documented by: Fentanyl (Fentanyl 50 Mcg/Ml Inj 2ml) 50 mcg IVP PRN PRN PRN Reason: pain Last Admin: 09/12/21 19:38 Dose: 50 mcg Documented by: Fluticasone Propionate (Fluticasone Nasal [place] 16gm Btl) 1 spray INTRANASAL BID PRN PRN Reason: Nasal Congestion Last Admin: 09/11/21 09:17 Dose: 1 spray Documented by: Glucagon (Glucagon 1 Mg/Ml Inj 1 Ml) 1 mg IM ONCE PRN; Protocol PRN Reason: Adult Acute Hypoglycemia Prot. Heparin Sodium (Porcine) (Heparin 5,000 Unit/Ml Inj 1 Ml) 5,000 unit SUBCUT Q12H [facility] Last Admin: 09/13/21 01:10 Dose: Not Given Documented by: Dextrose (D5w) 500 mls @ 100 mls/hr IV ONCE PRN; Protocol PRN Reason: Adult Acute Hypoglycemia Prot Nitroglycerin/Dextrose (Nitroglycerin Drip) 50 mg in 250 mls @ 0 mls/hr IV .Q0M [facility]; Protocol Insulin Human Lispro (Insulin Lispro 100 Unit/1 Ml) 0 unit SUBCUT WM&BEDTIME [facility]; Protocol Last Admin: 09/13/21 08:11 Dose: Not Given Documented by: Isosorbide Mononitrate (Isosorbide Mononitrate Er 60 Mg Tablet) 60 mg PO DAILY [facility] Last Admin: 09/13/21 08:08 Dose: 60 mg Documented by: Ketorolac Tromethamine (Ketorolac 30 Mg/Ml Inj) 15 mg IVP Q6H PRN PRN Reason: MODERATE PAIN Stop: 09/14/21 11:31 Last Admin: 09/12/21 17:01 Dose: 15 mg Documented by: Lidocaine (Lidocaine 5% Patch) 1 patch TOPICAL [id number] [facility] Last Admin: 09/13/21 08:11 Dose: 1 patch Documented by: Lidocaine/Prilocaine (Lidocaine-Prilocaine Cream 5 Gm) 0 applic TOPICAL PRN PRN PRN Reason: use as directed over fistula Magnesium Hydroxide (Magnesium Hydroxide 30 Ml Udc) 30 ml PO DAILY PRN PRN Reason: CONSTIPATION Metoprolol Tartrate (Metoprolol Tartrate 25 Mg Tablet) 25 mg PO BID@0900,2100 [facility] Last Admin: 09/13/21 08:11 Dose: 25 mg Documented by: Naloxone HCl (Naloxone 0.4 Mg/Ml Sdv) 0.1 mg IVP Q2M PRN PRN Reason: RESPIRATORY RATE < 8/MIN Nitroglycerin (Nitroglycerin 0.4 Mg Sublingual Tablet) 0.4 mg SUBLINGUAL Q5M PRN PRN Reason: Chest Pain Last Admin: 09/09/21 09:06 Dose: 1 applic Documented by: Nitroglycerin (Nitroglycerin 0.4 Mg Sublingual Tablet) 0.4 mg SUBLINGUAL Q5M PRN PRN Reason: CHEST PAIN Ondansetron HCl (Ondansetron 2 Mg/Ml Sdv 2 Ml) 4 mg IVP Q8H PRN PRN Reason: vomiting, or N/V if npo Last Admin: 09/08/21 06:19 Dose: 4 mg Documented by: Ondansetron HCl (Ondansetron 2 Mg/Ml Sdv 2 Ml) 4 mg IVP Q2M PRN PRN Reason: NAUSEA Oxycodone HCl (Oxycodone 5 Mg Ir Tab/Cap) 5 mg PO BID PRN PRN Reason: MODERATE PAIN Last Admin: 09/13/21 08:08 Dose: 5 mg Documented by: Pantoprazole Sodium (Pantoprazole Dr 40 Mg Tablet) 40 mg PO [facility] Last Admin: 09/13/21 05:02 Dose: 40 mg Documented by: Prednisone (Prednisone 10 Mg Tablet) 10 mg PO [facility] Last Admin: 09/13/21 05:02 Dose: 10 mg Documented by: Pregabalin (Pregabalin 75 Mg Capsule) 75 mg PO BID [facility] Last Admin: 09/13/21 08:06 Dose: 75 mg Documented by: Promethazine HCl (Promethazine 25 Mg Tablet) 12.5 mg PO Q6H PRN PRN Reason: Nausea Sacubitril/Valsartan (Sacubitril/Valsartan 24-26 Mg Tablet) 1 each PO BID [facility] Last Admin: 09/12/21 09:51 Dose: 1 each Documented by: Sevelamer Carbonate (Sevelamer 800 Mg Tablet) 1,600 mg PO BID PRN PRN Reason: LARGE SNACKS Sevelamer Carbonate (Sevelamer 800 Mg Tablet) 2,400 mg PO TIDWM JANNET Last Admin: 09/13/21 08:08 Dose: 2,400 mg Documented by: Temazepam (Temazepam 15 Mg Capsule) 15 mg PO BEDTIME PRN PRN Reason: INSOMNIA Last Admin: 09/12/21 19:37 Dose: 15 mg Documented by: Vitals/I&O/Wt Last Vital Signs Temp 97.5 F L 09/14/21 08:54 Pulse 69 09/14/21 08:54 Resp 16 09/14/21 08:54 BP 126/78 09/14/21 08:54 Pulse Ox 91 09/14/21 04:00 09/13/21 09/14/21 09/14/21 22:59 06:59 14:59 Intake Total 220 / 220 300 / 520 Output Total 0 / 0 0 / 0 Balance 220 / 220 300 / 520 Physical Exam Narrative: EXAM NARRATIVE: Constitutional: Awake, comfortable HEENT: Wet mucosa, no jvp, non icteric Lungs: Bilaterally clear without discernible wheeze, rales in all lung zones CVS: S1 S2, no murmurs Abdo: Soft, BS ok Ext 4: Minimal edema, peripheral perfusion with no cyanosis Neurological: Grossly non-focal Data : 09/13/21 03:20 09/13/21 07:30 A&P Additional A&P Information 1. ESRD Doing well on dialysis today 3K, UF 3L Dose medication for GFR less than 15 2. CAD S/p 3rd LHC with intervention. Mgmt per Cardiology Possible muscolskeletal/neurogenic pain 3. Hemodynamics Blood pressure looks good. 4. Chronic ESRD issues to be addressed as outpatient as part of standard monthly management. 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
--- NOTE | 2021-09-14 11:43 | PC.SOCIAL ---
IMM Update: pg 2 of IMM updated and reviewed w/ patient. Copy provided.
[2021-09-14 12:13] LABS: Glucose Point of Care 181 mg/dL (70-110)
[2021-09-14] MEDS: isosorbide mononitrate ER 60 mg Tablet PO (12:35)
[2021-09-14] MEDS: pregabalin 75 mg Capsule PO ×2 (12:35→18:37)
[2021-09-14] MEDS: sevelamer 800 mg Tablet 2400 MG PO (12:35)
[2021-09-14] MEDS: metoprolol tartrate 25 mg Tablet PO ×2 (12:38→19:18)
[2021-09-14] MEDS: predniSONE 20 mg Tablet 40 MG PO (12:38)
[2021-09-14] MEDS: insulin lispro 100 unit/1 mL SUBCUT ×2 (12:39→19:26)
[2021-09-14] MEDS: heparin 5,000 unit/mL INJ 1 mL 5000 UNIT SUBCUT ×2 (12:40→23:40)
[2021-09-14] MEDS: oxyCODONE 5 mg IR Tab/Cap PO ×2 (12:44→23:01)
--- NOTE | 2021-09-14 12:53 | PM.PN ---
Subjective Subjective: Interval history: Seen this morning in dialysis. Patient states he is continuing to have chest pain. He feels as if something is stepping on his chest. The pain does not worsen with movement. He sometimes does feel a little better when sitting up. He did say that after his third catheterization the pain was better but has not resolved completely. He denies having chest pain when he takes a deep breath. Vitals/I&O/Wt Last Vital Signs Temp 97.5 F L 09/14/21 08:54 Pulse 69 09/14/21 08:54 Resp 14 09/14/21 12:44 BP 126/78 09/14/21 08:54 Pulse Ox 99 09/14/21 12:44 09/13/21 09/14/21 09/14/21 22:59 06:59 14:59 Intake Total 220 / 220 300 / 520 Output Total 0 / 0 0 / 0 Balance 220 / 220 300 / 520 Physical Exam Narrative: EXAM NARRATIVE: Constitutional: Awake, comfortable seen getting dialy on MedSurg floor. ENT: Wet mucosa,non icteric, appears comfortable. JVD not assessed due to patient positioning. Lungs: Clear to auscultation bilaterally, no wheezes no rhonchi appreciated. CVS: S1 S2, no murmurs Abdo: Soft, BS ok Ext 4: No edema noted., peripheral perfusion with no cyanosis Neurological: Grossly non-focal Data : 09/13/21 03:20 09/13/21 07:30 A&P Assessment and plan (1) Atypical chest pain: Status: Acute (2) Atherosclerotic heart disease of [place] coronary artery with other forms of angina pectoris: Status: Acute (3) Anemia: Status: Acute Qualifiers: Anemia type: unspecified type Qualified Code(s): D64.9 - Anemia, unspecified (4) Hemochromatosis: Status: Acute Qualifiers: Hemochromatosis type: unspecified Qualified Code(s): E83.119 - Hemochromatosis, unspecified (5) Ischemic cardiomyopathy: Status: Acute (6) Mixed hyperlipidemia: Status: Acute Additional A&P Information #NSTEMI #Persistent chest pain Patient was admitted for NSTEMI He underwent cardiac catheterization x3. CTA ruled out PE, no signs aortic dissection, cervical lumbar CT scan did show disc bulging and postoperative surgical changes. Patient's chest pain does not improve upon movement. He describes it as if someone is putting her foot on his chest. Patient had a positive stress test and was taken to Economics Professor third time. Stress test did show reversible ischemia and FFR showed nonspecific changes. Patient states today he still having chest pain. He has been started on prednisone 40 daily for possible pericarditis. Patient is not a candidate for Ranexa due to his end-stage renal disease. Imdur was increased to [address] Landis and Dr. Gallegos on board Optimization of antianginal medications #End-stage renal disease Tuesday, dialysis after contrast today Hemoglobin at goal Hold azathioprine Renal dialysis diet after angiogram today DVT prophylaxis: Heparin Full code Patient has refused LifeVest, AICD evaluation as per Dr. Landis after discharge Attestations Medical Necessity Statement*: Potential discharge in a.m. I have started steroids. 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
--- NOTE | 2021-09-14 13:39 | P.CONIM_ITS ---
Documented by User: JUANY Alcazar 09/14/21 13:50 Providers/Reason For Consult Consulting Physician/Specialty*: Orthopedics Reason for Consult*: Neck and Left Arm pain Attending Physician: Kei Solitario MD Primary Care Provider: Michael Eubanks DO History of Present Illness History of Present Illness Marlon Dorantes is a 51 year old male who presents to [facility] complaining of cervical and left arm and chest pain. He reports this pain ongoing for approximately 4 to 5 days. He denies any specific injury. He has been evaluated by cardiology. Orthopedic spine was consulted for further evaluation. Patient describes neck left scapula left arm pain also left sided chest pain. Any use of the left arm makes his symptoms much worse. He reports equal neck to left arm pain. He has had a previous C5-6 fusion in [place] a number of years ago. Any movement of his neck seems to make his symptoms much worse. Any use of the left arm causes increased pain as well. He has not found much to make things better. Currently ranks the pain as 5 out of 10 on the pain scale. Denies any swallowing difficulties. Denies any fever chills or drainage from his incisional site. Review of Systems General: Reports: 10 or more systems reviewed and unremarkable except in HPI and below Narrative: ROS - 12 point review of systems completed per HPI and subjective assessment, this includes Constitutional: No weakness, fatigue Respiratory: No SOB on exertion, comfortable at rest CardioVasc: chest pain, no palpitations Gastrointestinal: No nausea, no vomiting Neurological: No seizures, no AMS Derm: No new rashes, lesions or wounds Immunological: No seasonal and no food allergies Const: Denies: fever(s), chills or body aches Eyes: Denies: change in vision, blurry vision or photophobia ENMT: Denies: throat pain, enlarged tonsils, odynophagia or nasal congestion Card: Reports: chest pain; Denies: palpitations, irregular heart rhythm, edema, swelling of feet/ankles, lightheadedness, pre-syncope, dyspnea on exertion or orthopnea Resp: Denies: dyspnea, productive cough, non-productive cough, wheezing, stridor, pain on inspiration, change in phlegm color, hemoptysis or chest congestion GI: Denies: abdominal pain, nausea, vomiting, hematemesis, coffee ground emesis, dysphagia, heartburn, diarrhea, constipation, GI cramping, change in st ool character, hematochezia or melena : Denies: flank pain, dysuria, urinary frequency, urinary urgency, urinary hesitancy or hematuria Musc: Denies: neck pain, back pain, extremity pain, joint swelling, joint warmth or deformity Neuro: Denies: headache(s), numbness in extremities, weakness in extremities, sensory changes, difficulty walking, frequent falls, dizziness, vertigo, behavioral changes, Slurred speech present or seizure-like activity Psych: Denies: anxiety, depression, suicidal ideation or homicidal ideation Endo: Denies: polyuria, polydipsia, tired all the time, cold intolerance or hot flashes Pranav/Lymph: Denies: easy bruising or easy bleeding All/Imm: Denies: acute wheezing Meds/Allergies Home Medications and Allergies Home Medications Medication Instructions Recorded Confirmed Last Taken Type nitroglycerin 0.4 mg sublingual 0.4 mg SUBLINGUAL Q5M PRN 10/31/19 09/07/21 Unknown History tablet promethazine 12.5 mg tablet 12.5 mg PO Q6H PRN 04/29/20 09/07/21 07/01/20 History 12.5 mg lidocaine-prilocaine See Rx Instructions .ROUTE .COMPLEX 05/24/20 09/07/21 07/03/21 History albuterol sulfate 90 mcg/actuation 2 puff INHALATION QID PRN 30 Days 12/25/20 09/07/21 07/06/21 Rx aerosol inhaler #8.5 g fluticasone propionate 50 1 spray INTRANASAL BID PRN ml 03/10/21 09/07/21 Unknown History mcg/actuation nasal spray,suspension pregabalin 75 mg capsule 75 mg PO BID 03/10/21 09/07/21 09/07/21 History sevelamer HCl See Rx Instructions .ROUTE .COMPLEX 05/18/21 09/07/21 05/17/21 History duloxetine 20 mg PO QAM 07/06/21 09/07/21 09/07/21 History prednisone 10 mg PO QAM 07/06/21 09/07/21 09/07/21 History Entresto 1 tab PO BID #90 tab 07/10/21 09/07/21 09/07/21 10:00 Rx oxycodone 5 mg PO BID PRN 09/07/21 09/07/21 Unknown History pantoprazole 40 mg PO QAM 09/07/21 09/07/21 09/07/21 History aspirin 81 mg PO QAM #30 tab 09/11/21 09/07/21 09/07/21 Rx atorvastatin 40 mg PO BEDTIME #90 tab 09/11/21 09/07/21 Unknown Rx clopidogrel 75 mg PO BEDTIME #30 tab 09/11/21 09/07/21 09/06/21 Rx isosorbide mononitrate 60 mg PO DAILY #90 tab 09/11/21 Unknown Rx metoprolol tartrate 25 mg PO BIDWMEAL #60 tab 09/11/21 09/07/21 07/06/21 Rx azathioprine 50 mg tablet See Rx Instructions .ROUTE 09/14/21 Unknown Rx .COMPLEX #30 tab Allergies Allergy/AdvReac Type Severity Reaction Status Date / Time azithromycin Allergy ADR-Chest Verified 09/07/21 17:17 Pain carvedilol AdvReac ADR-Dizzine Verified 09/07/21 17:17 ss Current Medications Current Medications Generic Name Dose Route Start Last Admin Trade Name Freq PRN Reason Stop Dose Admin Albuterol/Ipratropium 3 ml 09/07/21 03:00 09/14/21 02:58 Ipratropium-Albuterol 3 Ml Neb INHALATION 3 ml Q6H.RESPIRATORY JANNET Administration Alprazolam 0.25 mg 09/12/21 12:48 09/13/21 21:02 Alprazolam 0.5 Mg Tablet PO 0.25 mg TID PRN Administration ANXIETY Amlodipine Besylate 5 mg 09/08/21 09:30 09/14/21 12:04 Amlodipine 5 Mg Tablet PO Not Given DAILY JANNET Aspirin 81 mg 09/08/21 06:00 09/14/21 05:47 Aspirin 81 Mg Ec Tablet PO 81 mg QAM JANNET Administration Atorvastatin Calcium 40 mg 09/08/21 21:00 09/13/21 20:58 Atorvastatin 40 Mg Tablet PO 40 mg BEDTIME JANNET Administration Azathioprine 25 mg 09/11/21 09:30 09/14/21 12:36 Azathioprine 50 Mg Tablet PO 25 mg 0800 JANNET Administration Clopidogrel Bisulfate 75 mg 09/08/21 21:00 09/13/21 20:58 Clopidogrel 75 Mg Tablet PO 75 mg BEDTIME JANNET Administration Cyclobenzaprine HCl 10 mg 09/10/21 11:40 09/14/21 12:05 Cyclobenzaprine 10 Mg Tablet PO Not Given TID [facility] Duloxetine HCl 20 mg 09/08/21 06:00 09/14/21 05:47 Duloxetine 20 Mg Capsule PO 20 mg QAM JANNET Administration Fentanyl 50 mcg 09/12/21 12:48 09/12/21 19:38 Fentanyl 50 Mcg/Ml Inj 2ml IVP 50 mcg PRN PRN Administration pain Fluticasone Propionate 1 spray 09/08/21 20:24 09/11/21 09:17 Fluticasone Nasal [place] 16gm Btl INTRANASAL 1 spray BID PRN Administration Nasal Congestion Heparin Sodium (Porcine) 5,000 unit 09/09/21 12:00 09/14/21 12:40 Heparin 5,000 Unit/Ml Inj 1 Ml SUBCUT 5,000 unit Q12H JANNET Administration Insulin Human Lispro 0 unit 09/09/21 18:00 09/14/21 12:39 Insulin Lispro 100 Unit/1 Ml SUBCUT 6 unit WM&BEDTIME [facility] Administration Protocol Isosorbide Mononitrate 60 mg 09/11/21 10:45 09/14/21 12:35 Isosorbide Mononitrate Er 60 Mg Tablet PO 60 mg DAILY [facility] Administration Lidocaine 1 patch 09/09/21 15:25 09/14/21 12:05 Lidocaine 5% Patch TOPICAL Not Given [id number] [facility] Metoprolol Tartrate 25 mg 09/11/21 21:00 09/14/21 12:38 Metoprolol Tartrate 25 Mg Tablet PO 25 mg BID@0900,2100 [facility] Administration Nitroglycerin 0.4 mg 09/07/21 23:19 09/09/21 09:06 Nitroglycerin 0.4 Mg Sublingual Tablet SUBLINGUAL 1 applic Q5M PRN Administration Chest Pain Ondansetron HCl 4 mg 09/07/21 23:17 09/08/21 06:19 Ondansetron 2 Mg/Ml Sdv 2 Ml IVP 4 mg Q8H PRN Administration vomiting, or N/V if npo Oxycodone HCl 5 mg 09/07/21 23:19 09/14/21 12:44 Oxycodone 5 Mg Ir Tab/Cap PO 5 mg BID PRN Administration MODERATE PAIN Pantoprazole Sodium 40 mg 09/09/21 06:00 09/14/21 05:[address] 40 Mg Tablet PO 40 mg QAM JANNET Administration Prednisone 40 mg 09/13/21 18:35 09/14/21 12:38 Prednisone 20 Mg Tablet PO 40 mg DAILY JANNET Administration Pregabalin 75 mg 09/08/21 09:00 09/14/21 12:35 Pregabalin 75 Mg Capsule PO 75 mg BID JANNET Administration Sacubitril/Valsartan 1 each 09/08/21 09:00 09/12/21 09:51 Sacubitril/Valsartan 24-26 Mg Tablet PO 1 each BID JANNET Administration Sevelamer Carbonate 2,400 mg 09/08/21 21:00 09/14/21 12:35 Sevelamer 800 Mg Tablet PO 2,400 mg TIDWM JANNET Administration Temazepam 15 mg 09/12/21 12:48 09/13/21 20:57 Temazepam 15 Mg Capsule PO 15 mg BEDTIME PRN Administration INSOMNIA Additional Medication Information Current Medications Acetaminophen (Acetaminophen 325 Mg Tablet) 650 mg PO Q6H PRN PRN Reason: Mild/Mod Pain Or Temp >/= 101 Acetaminophen (Acetaminophen 325 Mg Tablet) 650 mg PO Q6H PRN PRN Reason: MILD PAIN Al Hydrox/Mg Hydrox/Simethicone (Niqu-Unq-Diccinnkz-Maninder 30 Ml Udc) 30 ml PO Q15M PRN PRN Reason: INDIGESTION Albuterol Sulfate (Albuterol 8 Gm Mdi) 2 puff INHALATION QID.RESPIRATORY PRN PRN Reason: shortness of breath or wheezing Albuterol/Ipratropium (Ipratropium-Albuterol 3 Ml Neb) 3 ml INHALATION Q6H.RESPIRATORY JANNET Last Admin: 09/13/21 08:50 Dose: 3 ml Documented by: Alprazolam (Alprazolam 0.5 Mg Tablet) 0.25 mg PO TID PRN PRN Reason: ANXIETY Amlodipine Besylate (Amlodipine 5 Mg Tablet) 5 mg PO DAILY [facility] Last Admin: 09/13/21 08:08 Dose: 5 mg Documented by: Aspirin (Aspirin 81 Mg Ec Tablet) 81 mg PO QAM JANNET Last Admin: 09/13/21 05:02 Dose: 81 mg Documented by: Atorvastatin Calcium (Atorvastatin 40 Mg Tablet) 40 mg PO BEDTIME JANNET Last Admin: 09/12/21 19:38 Dose: 40 mg Documented by: Atropine Sulfate (Atropine 1 Mg/Ml Sdv 1 Ml) 0.5 mg IVP PRN PRN PRN Reason: Symptomatic bradycardia Azathioprine (Azathioprine 50 Mg Tablet) 25 mg PO 0800 [facility] Last Admin: 09/13/21 08:06 Dose: 25 mg Documented by: Clopidogrel Bisulfate (Clopidogrel 75 Mg Tablet) 75 mg PO BEDTIME [facility] Last Admin: 09/12/21 19:38 Dose: 75 mg Documented by: Cyclobenzaprine HCl (Cyclobenzaprine 10 Mg Tablet) 10 mg PO TID [facility] Last Admin: 09/13/21 08:06 Dose: 10 mg Documented by: Dextrose (Dextrose 50% Syringe 50 Ml) 25 ml IVP ONCE PRN; Protocol PRN Reason: hypoglycemia protocol Dextrose (Dextrose 50% Syringe 50 Ml) 50 ml IVP PRN PRN; Protocol PRN Reason: hypoglycemia protocol Duloxetine HCl (Duloxetine 20 Mg Capsule) 20 mg PO QAM [facility] Last Admin: 09/13/21 05:02 Dose: 20 mg Documented by: Fentanyl (Fentanyl 50 Mcg/Ml Inj 2ml) 50 mcg IVP PRN PRN PRN Reason: pain Last Admin: 09/12/21 19:38 Dose: 50 mcg Documented by: Fluticasone Propionate (Fluticasone Nasal [place] 16gm Btl) 1 spray INTRANASAL BID PRN PRN Reason: Nasal Congestion Last Admin: 09/11/21 09:17 Dose: 1 spray Documented by: Glucagon (Glucagon 1 Mg/Ml Inj 1 Ml) 1 mg IM ONCE PRN; Protocol PRN Reason: Adult Acute Hypoglycemia Prot. Heparin Sodium (Porcine) (Heparin 5,000 Unit/Ml Inj 1 Ml) 5,000 unit SUBCUT Q12H [facility] Last Admin: 09/13/21 01:10 Dose: Not Given Documented by: Dextrose (D5w) 500 mls @ 100 mls/hr IV ONCE PRN; Protocol PRN Reason: Adult Acute Hypoglycemia Prot Nitroglycerin/Dextrose (Nitroglycerin Drip) 50 mg in 250 mls @ 0 mls/hr IV .Q0M [facility]; Protocol Insulin Human Lispro (Insulin Lispro 100 Unit/1 Ml) 0 unit SUBCUT WM&BEDTIME [facility]; Protocol Last Admin: 09/13/21 08:11 Dose: Not Given Documented by: Isosorbide Mononitrate (Isosorbide Mononitrate Er 60 Mg Tablet) 60 mg PO DAILY [facility] Last Admin: 09/13/21 08:08 Dose: 60 mg Documented by: Ketorolac Tromethamine (Ketorolac 30 Mg/Ml Inj) 15 mg IVP Q6H PRN PRN Reason: MODERATE PAIN Stop: 09/14/21 11:31 Last Admin: 09/12/21 17:01 Dose: 15 mg Documented by: Lidocaine (Lidocaine 5% Patch) 1 patch TOPICAL [id number] [facility] Last Admin: 09/13/21 08:11 Dose: 1 patch Documented by: Lidocaine/Prilocaine (Lidocaine-Prilocaine Cream 5 Gm) 0 applic TOPICAL PRN PRN PRN Reason: use as directed over fistula Magnesium Hydroxide (Magnesium Hydroxide 30 Ml Udc) 30 ml PO DAILY PRN PRN Reason: CONSTIPATION Metoprolol Tartrate (Metoprolol Tartrate 25 Mg Tablet) 25 mg PO BID@0900,2100 [facility] Last Admin: 09/13/21 08:11 Dose: 25 mg Documented by: Naloxone HCl (Naloxone 0.4 Mg/Ml Sdv) 0.1 mg IVP Q2M PRN PRN Reason: RESPIRATORY RATE < 8/MIN Nitroglycerin (Nitroglycerin 0.4 Mg Sublingual Tablet) 0.4 mg SUBLINGUAL Q5M PRN PRN Reason: Chest Pain Last Admin: 09/09/21 09:06 Dose: 1 applic Documented by: Nitroglycerin (Nitroglycerin 0.4 Mg Sublingual Tablet) 0.4 mg SUBLINGUAL Q5M PRN PRN Reason: CHEST PAIN Ondansetron HCl (Ondansetron 2 Mg/Ml Sdv 2 Ml) 4 mg IVP Q8H PRN PRN Reason: vomiting, or N/V if npo Last Admin: 09/08/21 06:19 Dose: 4 mg Documented by: Ondansetron HCl (Ondansetron 2 Mg/Ml Sdv 2 Ml) 4 mg IVP Q2M PRN PRN Reason: NAUSEA Oxycodone HCl (Oxycodone 5 Mg Ir Tab/Cap) 5 mg PO BID PRN PRN Reason: MODERATE PAIN Last Admin: 09/13/21 08:08 Dose: 5 mg Documented by: Pantoprazole Sodium (Pantoprazole Dr 40 Mg Tablet) 40 mg PO [facility] Last Admin: 09/13/21 05:02 Dose: 40 mg Documented by: Prednisone (Prednisone 10 Mg Tablet) 10 mg PO QAM [facility] Last Admin: 09/13/21 05:02 Dose: 10 mg Documented by: Pregabalin (Pregabalin 75 Mg Capsule) 75 mg PO BID [facility] Last Admin: 09/13/21 08:06 Dose: 75 mg Documented by: Promethazine HCl (Promethazine 25 Mg Tablet) 12.5 mg PO Q6H PRN PRN Reason: Nausea Sacubitril/Valsartan (Sacubitril/Valsartan 24-26 Mg Tablet) 1 each PO BID [facility] Last Admin: 09/12/21 09:51 Dose: 1 each Documented by: Sevelamer Carbonate (Sevelamer 800 Mg Tablet) 1,600 mg PO BID PRN PRN Reason: LARGE SNACKS Sevelamer Carbonate (Sevelamer 800 Mg Tablet) 2,400 mg PO TIDWM [facility] Last Admin: 09/13/21 08:08 Dose: 2,400 mg Documented by: Temazepam (Temazepam 15 Mg Capsule) 15 mg PO BEDTIME PRN PRN Reason: INSOMNIA Last Admin: 09/12/21 19:37 Dose: 15 mg Documented by: PFSH Acute PFSH: Medical History Atherosclerotic heart disease of chilkoot coronary artery without angina pectoris Benign essential hypertension Cardiomyopathy CHF NYHA class III (symptoms with mildly strenuous activities) COPD (chronic obstructive pulmonary disease) Diabetes mellitus DVT (deep venous thrombosis) Dyslipidemia ESRD (end stage renal disease) Fistula Left Wrist Headache Hemochromatosis Hemoptysis Hemoptysis 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 Mixed hyperlipidemia Nicotine dependence, cigarettes, uncomplicated Non-ST elevation (NSTEMI) myocardial infarction Pleural effusion Pneumonia Pulmonary hypertension Right-sided chest pain Sepsis Surgical History H/O elbow surgery H/O hand surgery H/O neck surgery History of back surgery History of intravascular stent placement History of thoracotomy Family History Grandmother , In her 50's Myocardial infarction Father Diabetes Mother Diabetes Social History Smoking and tobacco status: former smoker Quit status (tobacco): has quit using tobacco Year quit tobacco: 1999 - 2PPD x 20 Years Second hand smoke exposure: No Alcohol intake: current Alcohol intake frequency: holidays/special occasions only Lives independently: Yes Household members: spouse Marital status: Current occupational status: disabled History of recent travel: No Current gender identity: Male Dietary Habits: Current diet type/program: regular Caffeine: Yes Caffeine intake frequency: tea Number of tea servings: 1 Vitals/I&O/Wt Last Vital Signs Temp 97.5 F L 09/14/21 08:54 Pulse 69 09/14/21 08:54 Resp 14 09/14/21 12:44 BP 126/78 09/14/21 08:54 Pulse Ox 99 09/14/21 12:44 09/13/21 09/14/21 09/14/21 22:59 06:59 14:59 Intake Total 220 / 220 300 / 520 Output Total 0 / 0 0 / 0 Balance 220 / 220 300 / 520 Physical Exam Narrative: EXAM NARRATIVE: Patient appears comfortable in no obvious distress. Normal coordination and normal stability. Moderately tender with palpation throughout the cervical and upper thoracic regions. Well-healed incision to the anterior aspect of the cervical spine. normal sensation to light touch in all dermatomal layers. No signs of muscle wasting. Normal functional range of motion of the cervical with flexion to 35 degrees, extends 35 degrees, rotates 45 degrees symmetrically without difficulty, laterally bends 10 degrees symmetrically. Negative Spurling and Sams tests. Normal motor strength in all muscle groups with 5/5 strength in shoulders, elbows, wrists and digits bilaterally. No gross laxity. Reflexes 1+ and symmetric but the biceps, triceps and brachioradialis bilaterally. Negative Phalen's and Tinel's sign bilaterally. Radial pulses 2+ bilaterally. No palpable lymphadenopathy. No evidence of peripheral edema. HENMT: COMMON NORMALS: normocephalic and atraumatic HEAD & SCALP: normocephalic and atraumatic Resp: COMMON NORMALS: normal respiratory effort Cardio: COMMON NORMALS: regular rate and regular rhythm RATE: regular rate RHYTHM: regular rhythm GI: COMMON NORMALS: Soft to palpation PALPATION: Yes Soft to palpation Psych: COMMON NORMALS: cooperative A&P Assessment and plan (1) Cervical radiculopathy: At this point cardiology team does not feel that his symptoms are resonating from his heart. Given the cervical fusion history the concern of cervical radiculopathy symptoms are much greater. I will order an MRI of his cervical spine without contrast. We will also order AP, lateral, flexion, extension radiographs of his cervical spine as well. We will see him after those studies are complete. Discussed this with Dr. Esquivel agrees above-stated plan. Status: Acute (2) Degenerative disc disease, cervical: Status: Acute (3) Status post cervical spinal fusion: Status: Acute Coding Level of Care Code Acute Card Placer for g Fwd Exam Detailed Diagnoses Cervical radiculopathy M54.12 Degenerative disc disease, cervical M50.30 Status post cervical spinal fusion Z98.1 Documented by User: Luis Esquivel DO 09/15/21 11:20 Meds/Allergies Home Medications and Allergies Home Medications Medication Instructions Recorded Confirmed Last Taken Type nitroglycerin 0.4 mg sublingual 0.4 mg SUBLINGUAL Q5M PRN 10/31/19 09/07/21 Unknown History tablet promethazine 12.5 mg tablet 12.5 mg PO Q6H PRN 04/29/20 09/07/21 07/01/20 History 12.5 mg lidocaine-prilocaine See Rx Instructions .ROUTE .COMPLEX 05/24/20 09/07/21 07/03/21 History albuterol sulfate 90 mcg/actuation 2 puff INHALATION QID PRN 30 Days 12/25/20 09/07/21 07/06/21 Rx aerosol inhaler #8.5 g fluticasone propionate 50 1 spray INTRANASAL BID PRN ml 03/10/21 09/07/21 Unknown History mcg/actuation nasal spray,suspension pregabalin 75 mg capsule 75 mg PO BID 03/10/21 09/07/21 09/07/21 History sevelamer HCl See Rx Instructions .ROUTE .COMPLEX 0709/07/21 05/17/21 History duloxetine 20 mg PO QAM 07/06/21 09/07/21 09/07/21 History prednisone 10 mg PO QAM 07/06/21 09/07/21 09/07/21 History Entresto 1 tab PO BID #90 tab 07/10/21 09/07/21 09/07/21 10:00 Rx oxycodone 5 mg PO BID PRN 09/07/21 09/07/21 Unknown History pantoprazole 40 mg PO QAM 09/07/21 09/07/21 09/07/21 History aspirin 81 mg PO QAM #30 tab 09/11/21 09/07/21 09/07/21 Rx atorvastatin 40 mg PO BEDTIME #90 tab 09/11/21 09/07/21 Unknown Rx clopidogrel 75 mg PO BEDTIME #30 tab 09/11/21 09/07/21 09/06/21 Rx isosorbide mononitrate 60 mg PO DAILY #90 tab 09/11/21 Unknown Rx metoprolol tartrate 25 mg PO BIDWMEAL #60 tab 09/11/21 09/07/21 07/06/21 Rx azathioprine 50 mg tablet See Rx Instructions .ROUTE 09/14/21 Unknown Rx .COMPLEX #30 tab Allergies Allergy/AdvReac Type Severity Reaction Status Date / Time azithromycin Allergy ADR-Chest Verified 09/07/21 17:17 Pain carvedilol AdvReac ADR-Dizzine Verified 09/07/21 17:17 ss PFSH Acute PFSH: Medical History Atherosclerotic heart disease of [place] coronary artery without angina pectoris Benign essential hypertension Cardiomyopathy CHF NYHA class III (symptoms with mildly strenuous activities) COPD (chronic obstructive pulmonary disease) Diabetes mellitus DVT (deep venous thrombosis) Dyslipidemia ESRD (end stage renal disease) Fistula Left Wrist Headache Hemochromatosis Hemoptysis Hemoptysis 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 Mixed hyperlipidemia Nicotine dependence, cigarettes, uncomplicated Non-ST elevation (NSTEMI) myocardial infarction Pleural effusion Pneumonia Pulmonary hypertension Right-sided chest pain Sepsis Surgical History H/O elbow surgery H/O hand surgery H/O neck surgery History of back surgery History of intravascular stent placement History of thoracotomy Family History Grandmother , In her 50's Myocardial infarction Father Diabetes Mother Diabetes Social History Smoking and tobacco status: former smoker Quit status (tobacco): has quit using tobacco Year quit tobacco: 1999 - 2PPD x 20 Years Second hand smoke exposure: No Alcohol intake: current Alcohol intake frequency: holidays/special occasions only Lives independently: Yes Household members: spouse Marital status: Current occupational status: disabled History of recent travel: No Current gender identity: Male A&P Assessment and plan (1) Degenerative disc disease, cervical: patient seen agree with above. awaiting MRI. F/u outpt basis Status: Acute Consult Attestations Medical Necessity Statement: per primary service Coding Level of Care Code Acute Card Placer for [facility] Fwd Exam Detailed Diagnoses Cervical radiculopathy M54.12 Degenerative disc disease, cervical M50.30 Status post cervical spinal fusion Z98.1
--- NOTE | 2021-09-14 13:51 | XRR_ITS ---
PROCEDURE INFORMATION: Exam: XR Cervical Spine Exam date and time: 09/14/2021 1:51 PM Age: 51 years old Clinical indication: Neck pain; Additional info: S/P cervical fusion, neck pain TECHNIQUE: Imaging protocol: XR of the cervical spine. Views: 4 or 5 views. COMPARISON: CT cervical spin wo con* [id number] 09/10/2021 7:59 PM FINDINGS: Bones/joints: Multilevel degenerative disc calcification and productive degenerative endplate changes throughout the spine. Soft tissues: Unremarkable. Other findings: C5-C6 surgical hardware again seen in place. XR/XR cervical spine [id number] [id number] IMPRESSION: 1. C5-C6 surgical hardware again seen in place. 2. Multilevel degenerative disc calcification and productive degenerative endplate changes throughout the spine. Radiation Dose CTDIVOL = (mGy): DLP = (mGy-cm)
[2021-09-14 16:28] LABS: Glucose Point of Care 144 mg/dL (70-110)
[2021-09-14] MEDS: ALPRAZolam 0.5 mg Tablet 0.25 MG PO (19:18)
[2021-09-14] MEDS: atorvastatin 40 mg Tablet PO (19:18)
[2021-09-14] MEDS: clopidogrel 75 mg Tablet PO (19:18)
[2021-09-14 19:56] LABS: Glucose Point of Care 272 mg/dL (70-110)
[2021-09-15] VITALS (16 sets, daily range): BP systolic 119–143; BP diastolic 65–81; PULSE 68–75; RESP 13–21; TEMP 36–37; O2SAT 95–100
[2021-09-15] MEDS: ipratropium-albuterol 3 mL Neb INHALATION ×4 (03:05→20:58)
[2021-09-15] MEDS: pantoprazole DR 40 mg Tablet PO (04:17)
[2021-09-15] MEDS: cyclobenzaprine 10 mg Tablet PO ×3 (04:17→19:57)
[2021-09-15] MEDS: duloxetine 20 mg Capsule PO (04:18)
[2021-09-15] MEDS: aspirin 81 mg EC Tablet PO (04:18)
--- NOTE | 2021-09-15 05:03 | PC.NURSE ---
Dr. Solitario gave order to leave IV out.
[2021-09-15 06:03] LABS: Basophils % 0.2 %; Hematocrit 25.4 % (42.0-52.0); Hemoglobin 8.1 g/dL (11.7-16.6); Lymphocytes # 0.2 10^3/uL (0.8-4.8); Lymphocytes % 1.8 %; Mean Corpuscular HGB Conc 31.9 g/dL (30.0-36.0); Mean Corpuscular Hemoglobin 29.7 pg (28.0-34.0); Mean Platelet Volume 10.3 fL (7.4-10.4); Monocytes # 0.7 10^3/uL (0.2-0.9); Monocytes % 6.8 %; Neutrophils # 9.13 10^3/uL (1.8-7.7); Neutrophils % 90.2 %; Nucleated Red Blood Cells % 0 %; Platelet Count 132 10^3/cmm (130-400); Red Blood Count 2.73 10^6/uL (4.1-5.3); Red Cell Distribution Width 16.6 % (12.1-15.1); White Blood Count 10.1 10^3/uL (4.0-10.0)
[2021-09-15 06:29] LABS: Anion Gap 18.2 (5-19); Blood Urea Nitrogen 43 mg/dL (6-20); Calcium 8.4 mg/dL (8.5-10.5); Carbon Dioxide 27 mmol/L (22-29); Chloride 91 mmol/L (98-107); Glomerular Filtration Rate 9.1 mL/min (90-130); Glucose 152 mg/dL (65-115); Magnesium 2.1 mg/dL (1.7-2.3); Osmolality Calculated 288 mOsm/kg (285-295); Potassium 4.2 mmol/L (3.5-5.1); Sodium 132 mmol/L (136-145)
[2021-09-15 06:34] LABS: Glucose Point of Care 217 mg/dL (70-110)
[2021-09-15] MEDS: predniSONE 20 mg Tablet 40 MG PO (08:46)
[2021-09-15] MEDS: lidocaine 5% Patch 1 PATCH TOPICAL (08:46)
[2021-09-15] MEDS: metoprolol tartrate 25 mg Tablet PO ×2 (08:47→19:57)
[2021-09-15] MEDS: oxyCODONE 5 mg IR Tab/Cap PO ×2 (08:47→19:57)
[2021-09-15] MEDS: amlodipine 5 mg Tablet PO (08:47)
[2021-09-15] MEDS: pregabalin 75 mg Capsule PO ×2 (08:48→17:25)
[2021-09-15] MEDS: isosorbide mononitrate ER 60 mg Tablet PO (08:48)
[2021-09-15] MEDS: insulin lispro 100 unit/1 mL SUBCUT ×3 (08:49→20:18)
--- NOTE | 2021-09-15 09:07 | PM.PN ---
Documented by User: JUANY Alcazar 09/15/21 09:11 Subjective Subjective: Interval history: Patient resting comfortably, denies any changes with his neck or left arm pain. He is scheduled for an MRI scan. Vitals/I&O/Wt Last Vital Signs Temp 97.6 F 09/15/21 08:00 Pulse 74 09/15/21 08:00 Resp 16 09/15/21 08:47 BP 123/81 09/15/21 08:00 Pulse Ox 97 09/15/21 08:47 09/14/21 09/15/21 09/15/21 22:59 06:59 14:59 Intake Total 400 / 940 Balance 400 / -2360 Weight last 48 hrs Weight 207 lb 3.752 oz Physical Exam Narrative: EXAM NARRATIVE: Patient is alert and oriented x3 with a good general appearance normal normal affect. Good motor strength throughout right upper extremity. 4/5 in LUE. Appears to fire in all motor groups. Hands are warm good cap refill in all digits. Normal sensation to light touch in all dermatomal areas. Data : 09/15/21 04:55 09/16/21 02:16 A&P Assessment and plan (1) Degenerative disc disease, cervical: Radiographs show a cervical disc replacement at C5-6, moderate cervical spondylosis evident. Degenerative changes at C4-5. He is scheduled for an MRI scan which we can follow him outpatient in the office. Status: Acute (2) S/P cervical disc replacement: Status: Acute Coding Level of Care Code Acute Warp Trucker for [facility] Diagnoses Degenerative disc disease, cervical M50.30 S/P cervical disc replacement Z98.890 Documented by User: Luis Esquivel DO 09/16/21 07:58 Data : 09/15/21 04:55 09/16/21 02:16 A&P Assessment and plan (1) S/P cervical disc replacement: MRI does not show anything acute can follow up on outpt basis Status: Acute Attestations Medical Necessity Statement*: per primary service Coding Level of Care Code Acute Warp Trucker for g Fwd Diagnoses Degenerative disc disease, cervical M50.30 S/P cervical disc replacement Z98.890
--- NOTE | 2021-09-15 10:15 | MR_ITS ---
WS: [id number] MRI CERVICAL SPINE NONCONTRAST HISTORY: cervical radiculopathy COMPARISON: Cervical spine radiograph 09/14/2021. Prior cervical spine CT 09/10/2021 Technique: Multiplanar, multisequence noncontrast imaging of the cervical spine. Increase in the lordosis. There is significant motion artifact present. There is also significant art ifact being exacerbated by motion at the C5-6 level where there is an interbody body spacer. Deformity and loss of signal in the cervical cord at the C5-6 level due to the artifact from the spac er. The remaining signal within the cord is normal. Craniocervical junction, C1 and C2 relationship, odontoid process and soft tissues are normal. C2-C3: Normal. C3-C4: Mild osteophytic ridging and facet arthritis. Small central disc protrusion. Near contact on t he ventral thecal sac. Mild central and foraminal narrowing. C4-C5: Mild osteophytic ridging. There is a very tiny central disc protrusion resulting in mild centr al and foraminal stenosis. C5-C6: Obscured by artifact. C6-C7: Partially obscured by the artifact. No stenosis identified. C7-T1: No obvious stenosis. Limited by motion and body habitus. Paraspinal soft tissue are normal. MR/MR cervical spin wo con* [id number] IMPRESSION: 1. Quality of this examination is limited by multiple factors including positi oning, artifact from the hardware and motion. 2. There is significant artifact at the C5-6 level from the interbody spacer o bscuring detail at C5-6 and C6-7 and within the cervical cord. 3. Mild central and bilateral foraminal stenosis at C3-4 and C4-5 due to mild disc disease and facet arthritis. Tiny central disc protrusions at these levels .
[2021-09-15 11:47] LABS: Glucose Point of Care 109 mg/dL (70-110)
--- NOTE | 2021-09-15 11:47 | PM.PN ---
Subjective Subjective: Interval history: Persistent chest pain, mild shortness of breath that his pain is subjective. No other acute issues today. Pending MRI scanner this morning. Dialysis went well yesterday. No other acute issues. Medications: Reviewed: Yes Medication Review Details: Current Medications Acetaminophen (Acetaminophen 325 Mg Tablet) 650 mg PO Q6H PRN PRN Reason: Mild/Mod Pain Or Temp >/= 101 Acetaminophen (Acetaminophen 325 Mg Tablet) 650 mg PO Q6H PRN PRN Reason: MILD PAIN Al Hydrox/Mg Hydrox/Simethicone (Ynsm-Gqo-Uyehrcrny-Maninder 30 Ml Udc) 30 ml PO Q15M PRN PRN Reason: INDIGESTION Albuterol Sulfate (Albuterol 8 Gm Mdi) 2 puff INHALATION QID.RESPIRATORY PRN PRN Reason: shortness of breath or wheezing Albuterol/Ipratropium (Ipratropium-Albuterol 3 Ml Neb) 3 ml INHALATION Q6H.RESPIRATORY [facility] Last Admin: 09/13/21 08:50 Dose: 3 ml Documented by: Alprazolam (Alprazolam 0.5 Mg Tablet) 0.25 mg PO TID PRN PRN Reason: ANXIETY Amlodipine Besylate (Amlodipine 5 Mg Tablet) 5 mg PO DAILY [facility] Last Admin: 09/13/21 08:08 Dose: 5 mg Documented by: Aspirin (Aspirin 81 Mg Ec Tablet) 81 mg PO QAM [facility] Last Admin: 09/13/21 05:02 Dose: 81 mg Documented by: Atorvastatin Calcium (Atorvastatin 40 Mg Tablet) 40 mg PO BEDTIME [facility] Last Admin: 09/12/21 19:38 Dose: 40 mg Documented by: Atropine Sulfate (Atropine 1 Mg/Ml Sdv 1 Ml) 0.5 mg IVP PRN PRN PRN Reason: Symptomatic bradycardia Azathioprine (Azathioprine 50 Mg Tablet) 25 mg PO 0800 [facility] Last Admin: 09/13/21 08:06 Dose: 25 mg Documented by: Clopidogrel Bisulfate (Clopidogrel 75 Mg Tablet) 75 mg PO BEDTIME [facility] Last Admin: 09/12/21 19:38 Dose: 75 mg Documented by: Cyclobenzaprine HCl (Cyclobenzaprine 10 Mg Tablet) 10 mg PO TID [facility] Last Admin: 09/13/21 08:06 Dose: 10 mg Documented by: Dextrose (Dextrose 50% Syringe 50 Ml) 25 ml IVP ONCE PRN; Protocol PRN Reason: hypoglycemia protocol Dextrose (Dextrose 50% Syringe 50 Ml) 50 ml IVP PRN PRN; Protocol PRN Reason: hypoglycemia protocol Duloxetine HCl (Duloxetine 20 Mg Capsule) 20 mg PO QAM [facility] Last Admin: 09/13/21 05:02 Dose: 20 mg Documented by: Fentanyl (Fentanyl 50 Mcg/Ml Inj 2ml) 50 mcg IVP PRN PRN PRN Reason: pain Last Admin: 09/12/21 19:38 Dose: 50 mcg Documented by: Fluticasone Propionate (Fluticasone Nasal [place] 16gm Btl) 1 spray INTRANASAL BID PRN PRN Reason: Nasal Congestion Last Admin: 09/11/21 09:17 Dose: 1 spray Documented by: Glucagon (Glucagon 1 Mg/Ml Inj 1 Ml) 1 mg IM ONCE PRN; Protocol PRN Reason: Adult Acute Hypoglycemia Prot. Heparin Sodium (Porcine) (Heparin 5,000 Unit/Ml Inj 1 Ml) 5,000 unit SUBCUT Q12H [facility] Last Admin: 09/13/21 01:10 Dose: Not Given Documented by: Dextrose (D5w) 500 mls @ 100 mls/hr IV ONCE PRN; Protocol PRN Reason: Adult Acute Hypoglycemia Prot Nitroglycerin/Dextrose (Nitroglycerin Drip) 50 mg in 250 mls @ 0 mls/hr IV .Q0M [facility]; Protocol Insulin Human Lispro (Insulin Lispro 100 Unit/1 Ml) 0 unit SUBCUT WM&BEDTIME [facility]; Protocol Last Admin: 09/13/21 08:11 Dose: Not Given Documented by: Isosorbide Mononitrate (Isosorbide Mononitrate Er 60 Mg Tablet) 60 mg PO DAILY [facility] Last Admin: 09/13/21 08:08 Dose: 60 mg Documented by: Ketorolac Tromethamine (Ketorolac 30 Mg/Ml Inj) 15 mg IVP Q6H PRN PRN Reason: MODERATE PAIN Stop: 09/14/21 11:31 Last Admin: 09/12/21 17:01 Dose: 15 mg Documented by: Lidocaine (Lidocaine 5% Patch) 1 patch TOPICAL [id number] [facility] Last Admin: 09/13/21 08:11 Dose: 1 patch Documented by: Lidocaine/Prilocaine (Lidocaine-Prilocaine Cream 5 Gm) 0 applic TOPICAL PRN PRN PRN Reason: use as directed over fistula Magnesium Hydroxide (Magnesium Hydroxide 30 Ml Udc) 30 ml PO DAILY PRN PRN Reason: CONSTIPATION Metoprolol Tartrate (Metoprolol Tartrate 25 Mg Tablet) 25 mg PO BID@0900,2100 [facility] Last Admin: 09/13/21 08:11 Dose: 25 mg Documented by: Naloxone HCl (Naloxone 0.4 Mg/Ml Sdv) 0.1 mg IVP Q2M PRN PRN Reason: RESPIRATORY RATE < 8/MIN Nitroglycerin (Nitroglycerin 0.4 Mg Sublingual Tablet) 0.4 mg SUBLINGUAL Q5M PRN PRN Reason: Chest Pain Last Admin: 09/09/21 09:06 Dose: 1 applic Documented by: Nitroglycerin (Nitroglycerin 0.4 Mg Sublingual Tablet) 0.4 mg SUBLINGUAL Q5M PRN PRN Reason: CHEST PAIN Ondansetron HCl (Ondansetron 2 Mg/Ml Sdv 2 Ml) 4 mg IVP Q8H PRN PRN Reason: vomiting, or N/V if npo Last Admin: 09/08/21 06:19 Dose: 4 mg Documented by: Ondansetron HCl (Ondansetron 2 Mg/Ml Sdv 2 Ml) 4 mg IVP Q2M PRN PRN Reason: NAUSEA Oxycodone HCl (Oxycodone 5 Mg Ir Tab/Cap) 5 mg PO BID PRN PRN Reason: MODERATE PAIN Last Admin: 09/13/21 08:08 Dose: 5 mg Documented by: Pantoprazole Sodium (Pantoprazole Dr 40 Mg Tablet) [address] [facility] Last Admin: 09/13/21 05:02 Dose: 40 mg Documented by: Prednisone (Prednisone 10 Mg Tablet) [address] [facility] Last Admin: 09/13/21 05:02 Dose: 10 mg Documented by: Pregabalin (Pregabalin 75 Mg Capsule) 75 mg PO BID [facility] Last Admin: 09/13/21 08:06 Dose: 75 mg Documented by: Promethazine HCl (Promethazine 25 Mg Tablet) 12.5 mg PO Q6H PRN PRN Reason: Nausea Sacubitril/Valsartan (Sacubitril/Valsartan 24-26 Mg Tablet) 1 each PO BID [facility] Last Admin: 09/12/21 09:51 Dose: 1 each Documented by: Sevelamer Carbonate (Sevelamer 800 Mg Tablet) 1,600 mg PO BID PRN PRN Reason: LARGE SNACKS Sevelamer Carbonate (Sevelamer 800 Mg Tablet) 2,400 mg PO TIDWM JANNET Last Admin: 09/13/21 08:08 Dose: 2,400 mg Documented by: Temazepam (Temazepam 15 Mg Capsule) 15 mg PO BEDTIME PRN PRN Reason: INSOMNIA Last Admin: 09/12/21 19:37 Dose: 15 mg Documented by: Vitals/I&O/Wt Last Vital Signs Temp 97.4 F L 09/15/21 11:46 Pulse 74 09/15/21 11:46 Resp 21 H 09/15/21 11:46 BP 143/74 09/15/21 11:46 Pulse Ox 99 09/15/21 11:46 09/14/21 09/15/21 09/15/21 22:59 06:59 14:59 Intake Total 400 / 940 120 / 120 Balance 400 / -2360 120 / 120 Weight last 48 hrs Weight 94 kg Physical Exam Narrative: EXAM NARRATIVE: Constitutional: Awake, comfortable HEENT: Wet mucosa, no jvp, non icteric Lungs: Bilaterally clear without discernible wheeze, rales in all lung zones CVS: S1 S2, no murmurs Abdo: Soft, BS ok Ext 4: Minimal edema, peripheral perfusion with no cyanosis Neurological: Grossly non-focal Data : 09/15/21 04:55 09/15/21 04:55 A&P Additional A&P Information 1. ESRD Doing well on dialysis tomorrow 3K, UF 3L Dose medication for GFR less than 15 2. CAD S/p 3rd C with intervention. Mgmt per Cardiology Possible muscolskeletal/neurogenic pain; MRI pending 3. Hemodynamics Blood pressure looks good. 4. Chronic ESRD issues to be addressed as outpatient as part of standard monthly management. 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
[2021-09-15] MEDS: heparin 5,000 unit/mL INJ 1 mL 5000 UNIT SUBCUT (12:22)
[2021-09-15] MEDS: sevelamer 800 mg Tablet 2400 MG PO ×2 (12:22→17:25)
--- NOTE | 2021-09-15 14:56 | PM.PN ---
Subjective Subjective: Interval history: Seen this morning. He continues to have pain deep in his chest. He does agree that he might have an anxiety component to the pain. MRI was done this morning. Results pending. Vitals/I&O/Wt Last Vital Signs Temp 97.4 F L 09/15/21 11:46 Pulse 74 09/15/21 11:46 Resp 21 H 09/15/21 11:46 BP 143/74 09/15/21 11:46 Pulse Ox 99 09/15/21 11:46 09/14/21 09/15/21 09/15/21 22:59 06:59 14:59 Intake Total 400 / 940 360 / 360 Balance 400 / -2360 360 / 360 Weight last 48 hrs Weight 94 kg Physical Exam Narrative: EXAM NARRATIVE: Constitutional: Awake, comfortable seen appearing anxious in bed room 106. ENT: Wet mucosa,non icteric, appears comfortable. Lungs: Clear to auscultation bilaterally, no wheezes no rhonchi appreciated. CVS: S1 S2, no murmurs Abdo: Soft, BS ok Ext 4: No edema noted., peripheral perfusion with no cyanosis Neurological: Grossly non-focal Data : 09/15/21 04:55 09/15/21 04:55 A&P Assessment and plan (1) Atypical chest pain: Status: Acute (2) Atherosclerotic heart disease of [place] coronary artery with other forms of angina pectoris: Status: Acute (3) Anemia: Status: Acute Qualifiers: Anemia type: unspecified type Qualified Code(s): D64.9 - Anemia, unspecified (4) Hemochromatosis: Status: Acute Qualifiers: Hemochromatosis type: unspecified Qualified Code(s): E83.119 - Hemochromatosis, unspecified (5) Ischemic cardiomyopathy: Status: Acute (6) Mixed hyperlipidemia: Status: Acute Additional A&P Information #NSTEMI #Persistent chest pain Patient was admitted for NSTEMI He underwent cardiac catheterization x3. CTA ruled out PE, no signs aortic dissection, cervical lumbar CT scan did show disc bulging and postoperative surgical changes. Patient's chest pain does not improve upon movement. He describes it as if someone is putting her foot on his chest. Patient had a positive stress test and was taken to Lead Mechanic third time. Stress test did show reversible ischemia and FFR showed nonspecific changes. Patient states he is continuing to have pain deep inside his chest. He does agree that there could be an anxiety component. We will try him on Xanax to see how he does. Patient states that if by tomorrow he feels better he will be willing to go home. He has been started on prednisone 40 daily for possible pericarditis. Patient is not a candidate for Ranexa due to his end-stage renal disease. Imdur was increased to [address] Landis and Dr. Gallegos on board Optimization of antianginal medications #Cervical spine radiculopathy? ?MRI C-spine done this morning. Report pending. Orthopedic surgery was consulted. Will follow recommendations Patient's pain that is deep in his chest does also radiated to both arms at some point and he also has numbness tingling in his arms. He will be following outpatient with Dr. Esquivel's office. ?Severe spinal canal stenosis at lumbar region. He will follow up outpatient with Dr. Esquivel for that as well. #End-stage renal disease Tuesday, dialysis after contrast today Hemoglobin at goal Hold azathioprine Renal dialysis diet after angiogram today DVT prophylaxis: Heparin Full code Patient has refused LifeVest, AICD evaluation as per Dr. Landis after discharge Possible discharge in the morning. Attestations Medical Necessity Statement*: Possible discharge in the morning. Coding Level of Care Code Acute Life Skills Teacher for g Fwd Diagnoses Atypical chest pain R07.89 Atherosclerotic heart disease of [place] coronary artery with other forms of angina pectoris I25.118 Anemia D64.9 Anemia type: unspecified type Hemochromatosis E83.119 Hemochromatosis type: unspecified Ischemic cardiomyopathy I25.5 Mixed hyperlipidemia E78.2
[2021-09-15] MEDS: ALPRAZolam 0.5 mg Tablet 0.25 MG PO (15:49)
[2021-09-15 17:04] LABS: Glucose Point of Care 216 mg/dL (70-110)
--- NOTE | 2021-09-15 19:28 | PC.NURSE ---
pt had mri at 1030 this morning.tolerated well.cont to c/o left chest and left scapular pain..tho not as severe as earlier in stay.anticipate discharge tomorrow after dialysis
[2021-09-15] MEDS: atorvastatin 40 mg Tablet PO (19:57)
[2021-09-15] MEDS: clopidogrel 75 mg Tablet PO (19:57)
[2021-09-15 20:40] LABS: Glucose Point of Care 260 mg/dL (70-110)
--- NOTE | 2021-09-15 23:54 | ECG_ITS ---
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 Measurements Intervals [place] Rate: 71 P: 34 DC: 154 QRS: 4 QRSD: 113 T: 174 QT: 427 QTc: 466 Interpretive Statements SINUS RHYTHM LEFT VENTRICULAR HYPERTROPHY AND ST-T CHANGE [VOLTAGE CRITERIA PLUS ST/T ABNORMALITY] Compared to ECG 09/12/2021 10:14:34 No significant changes Electronically Signed On 09-16-2021 17:44:29 SHOE DRESSER by Vaibhav Gallegos M.D. [id number]
[2021-09-16] VITALS (14 sets, daily range): BP systolic 116–138; BP diastolic 71–81; PULSE 69–86; RESP 14–23; TEMP 36–36.8; O2SAT 93–100
[2021-09-16 00:16] LABS: Glucose Point of Care 155 mg/dL (70-110)
[2021-09-16] MEDS: ALPRAZolam 0.5 mg Tablet 0.25 MG PO ×3 (00:21→19:10)
[2021-09-16] MEDS: heparin 5,000 unit/mL INJ 1 mL 5000 UNIT SUBCUT ×2 (00:21→12:38)
--- NOTE | 2021-09-16 00:27 | PC.NURSE ---
Patient states, I just don't feel right. I feel hot and clammy and sweaty. EKG taken. VSS. Blood sugar WNL. Assessment WNL. Patient now states he feels better.
[2021-09-16 03:30] LABS: Anion Gap 21.1 (5-19); Blood Urea Nitrogen 61 mg/dL (6-20); Carbon Dioxide 26 mmol/L (22-29); Chloride 90 mmol/L (98-107); Glomerular Filtration Rate 6.5 mL/min (90-130); Glucose 117 mg/dL (65-115); Osmolality Calculated 292 mOsm/kg (285-295); Potassium 5.1 mmol/L (3.5-5.1); Sodium 132 mmol/L (136-145)
[2021-09-16] MEDS: pantoprazole DR 40 mg Tablet PO (04:32)
[2021-09-16] MEDS: duloxetine 20 mg Capsule PO (04:32)
[2021-09-16] MEDS: aspirin 81 mg EC Tablet PO (04:32)
--- NOTE | 2021-09-16 04:32 | PC.NURSE ---
Patient states I'm scared to go home, I'm really anxious. The pain in my chest never goes away so I don't know how to know when it's a heart attack and when it's not.
[2021-09-16] MEDS: cyclobenzaprine 10 mg Tablet PO ×3 (04:35→19:54)
[2021-09-16 06:33] LABS: Glucose Point of Care 117 mg/dL (70-110)
--- NOTE | 2021-09-16 07:13 | PM.PN ---
Subjective Subjective: Interval history: dizzy, weak, no sob. + nausea Medications: Reviewed: Yes Medication Review Details: Current Medications Acetaminophen (Acetaminophen 325 Mg Tablet) 650 mg PO Q6H PRN PRN Reason: Mild/Mod Pain Or Temp >/= 101 Acetaminophen (Acetaminophen 325 Mg Tablet) 650 mg PO Q6H PRN PRN Reason: MILD PAIN Al Hydrox/Mg Hydrox/Simethicone (Ugbn-Stb-Jhtwtbhhk-Maninder 30 Ml Udc) 30 ml PO Q15M PRN PRN Reason: INDIGESTION Albuterol Sulfate (Albuterol 8 Gm Mdi) 2 puff INHALATION QID.RESPIRATORY PRN PRN Reason: shortness of breath or wheezing Albuterol/Ipratropium (Ipratropium-Albuterol 3 Ml Neb) 3 ml INHALATION Q6H.RESPIRATORY [facility] Last Admin: 09/15/21 20:58 Dose: 3 ml Documented by: Alprazolam (Alprazolam 0.5 Mg Tablet) 0.25 mg PO TID PRN PRN Reason: ANXIETY Last Admin: 09/16/21 00:21 Dose: 0.25 mg Documented by: Amlodipine Besylate (Amlodipine 5 Mg Tablet) 5 mg PO DAILY [facility] Last Admin: 09/15/21 08:47 Dose: 5 mg Documented by: Aspirin (Aspirin 81 Mg Ec Tablet) 81 mg PO QAM [facility] Last Admin: 09/16/21 04:32 Dose: 81 mg Documented by: Atorvastatin Calcium (Atorvastatin 40 Mg Tablet) 40 mg PO BEDTIME [facility] Last Admin: 09/15/21 19:57 Dose: 40 mg Documented by: Atropine Sulfate (Atropine 1 Mg/Ml Sdv 1 Ml) 0.5 mg IVP PRN PRN PRN Reason: Symptomatic bradycardia Azathioprine (Azathioprine 50 Mg Tablet) 25 mg PO 0800 [facility] Last Admin: 09/15/21 08:46 Dose: 25 mg Documented by: Clopidogrel Bisulfate (Clopidogrel 75 Mg Tablet) 75 mg PO BEDTIME [facility] Last Admin: 09/15/21 19:57 Dose: 75 mg Documented by: Cyclobenzaprine HCl (Cyclobenzaprine 10 Mg Tablet) 10 mg PO TID [facility] Last Admin: 09/16/21 04:35 Dose: 10 mg Documented by: Dextrose (Dextrose 50% Syringe 50 Ml) 25 ml IVP ONCE PRN; Protocol PRN Reason: hypoglycemia protocol Dextrose (Dextrose 50% Syringe 50 Ml) 50 ml IVP PRN PRN; Protocol PRN Reason: hypoglycemia protocol Duloxetine HCl (Duloxetine 20 Mg Capsule) 20 mg PO QAM [facility] Last Admin: 09/16/21 04:32 Dose: 20 mg Documented by: Fentanyl (Fentanyl 50 Mcg/Ml Inj 2ml) 50 mcg IVP PRN PRN PRN Reason: pain Last Admin: 09/12/21 19:38 Dose: 50 mcg Documented by: Fluticasone Propionate (Fluticasone Nasal [place] 16gm Btl) 1 spray INTRANASAL BID PRN PRN Reason: Nasal Congestion Last Admin: 09/11/21 09:17 Dose: 1 spray Documented by: Glucagon (Glucagon 1 Mg/Ml Inj 1 Ml) 1 mg IM ONCE PRN; Protocol PRN Reason: Adult Acute Hypoglycemia Prot. Heparin Sodium (Porcine) (Heparin 5,000 Unit/Ml Inj 1 Ml) 5,000 unit SUBCUT Q12H [facility] Last Admin: 09/16/21 00:21 Dose: 5,000 unit Documented by: Dextrose (D5w) 500 mls @ 100 mls/hr IV ONCE PRN; Protocol PRN Reason: Adult Acute Hypoglycemia Prot Nitroglycerin/Dextrose (Nitroglycerin Drip) 50 mg in 250 mls @ 0 mls/hr IV .Q0M [facility]; Protocol Insulin Human Lispro (Insulin Lispro 100 Unit/1 Ml) 0 unit SUBCUT WM&BEDTIME [facility]; Protocol Last Admin: 09/15/21 20:18 Dose: 8 unit Documented by: Isosorbide Mononitrate (Isosorbide Mononitrate Er 60 Mg Tablet) 60 mg PO DAILY [facility] Last Admin: 09/15/21 08:48 Dose: 60 mg Documented by: Lidocaine (Lidocaine 5% Patch) 1 patch TOPICAL [id number] [facility] Last Admin: 09/15/21 19:58 Dose: Not Given Documented by: Lidocaine/Prilocaine (Lidocaine-Prilocaine Cream 5 Gm) 0 applic TOPICAL PRN PRN PRN Reason: use as directed over fistula Magnesium Hydroxide (Magnesium Hydroxide 30 Ml Udc) 30 ml PO DAILY PRN PRN Reason: CONSTIPATION Metoprolol Tartrate (Metoprolol Tartrate 25 Mg Tablet) 25 mg PO BID@0900,2100 [facility] Last Admin: 09/15/21 19:57 Dose: 25 mg Documented by: Naloxone HCl (Naloxone 0.4 Mg/Ml Sdv) 0.1 mg IVP Q2M PRN PRN Reason: RESPIRATORY RATE < 8/MIN Nitroglycerin (Nitroglycerin 0.4 Mg Sublingual Tablet) 0.4 mg SUBLINGUAL Q5M PRN PRN Reason: Chest Pain Last Admin: 09/09/21 09:06 Dose: 1 applic Documented by: Nitroglycerin (Nitroglycerin 0.4 Mg Sublingual Tablet) 0.4 mg SUBLINGUAL Q5M PRN PRN Reason: CHEST PAIN Ondansetron HCl (Ondansetron 2 Mg/Ml Sdv 2 Ml) 4 mg IVP Q8H PRN PRN Reason: vomiting, or N/V if npo Last Admin: 09/08/21 06:19 Dose: 4 mg Documented by: Ondansetron HCl (Ondansetron 2 Mg/Ml Sdv 2 Ml) 4 mg IVP Q2M PRN PRN Reason: NAUSEA Oxycodone HCl (Oxycodone 5 Mg Ir Tab/Cap) 5 mg PO BID PRN PRN Reason: MODERATE PAIN Last Admin: 09/15/21 19:57 Dose: 5 mg Documented by: Pantoprazole Sodium (Pantoprazole Dr 40 Mg Tablet) 40 mg PO QAM [facility] Last Admin: 09/16/21 04:32 Dose: 40 mg Documented by: Prednisone (Prednisone 20 Mg Tablet) 40 mg PO DAILY [facility] Last Admin: 09/15/21 08:46 Dose: 40 mg Documented by: Pregabalin (Pregabalin 75 Mg Capsule) 75 mg PO BID [facility] Last Admin: 09/15/21 17:25 Dose: 75 mg Documented by: Promethazine HCl (Promethazine 25 Mg Tablet) 12.5 mg PO Q6H PRN PRN Reason: Nausea Sacubitril/Valsartan (Sacubitril/Valsartan 24-26 Mg Tablet) 1 each PO BID [facility] Last Admin: 09/12/21 09:51 Dose: 1 each Documented by: Sevelamer Carbonate (Sevelamer 800 Mg Tablet) 1,600 mg PO BID PRN PRN Reason: LARGE SNACKS Sevelamer Carbonate (Sevelamer 800 Mg Tablet) 2,400 mg PO TIDWM [facility] Last Admin: 09/15/21 17:25 Dose: 2,400 mg Documented by: Temazepam (Temazepam 15 Mg Capsule) 15 mg PO BEDTIME PRN PRN Reason: INSOMNIA Last Admin: 09/13/21 20:57 Dose: 15 mg Documented by: Vitals/I&O/Wt Last Vital Signs Temp 96.8 F L 09/16/21 03:20 Pulse 71 09/16/21 03:28 Resp 18 09/16/21 03:20 BP 127/74 09/16/21 03:20 Pulse Ox 100 09/16/21 03:20 09/15/21 09/16/21 09/16/21 22:59 06:59 14:59 Intake Total 640 / 1000 Balance 640 / 1000 Weight last 48 hrs Weight 94 kg Physical Exam Narrative: EXAM NARRATIVE: comfortable in chair, NARD vss heent- nc/at, eomi, anicteric neck- no jvp lungs crackles b/l heart reg, no rub abd soft, nt, nd, + bs ext no edema LUE AVF w/ thrill and bruit neuro- a,a, o x 3 Data : 09/15/21 04:55 09/16/21 02:16 A&P Additional A&P Information 1. ESRD HD now: 2K bath, remove 2 L Dose medication for GFR less than 15 2. CAD S/p 3rd C with intervention. Mgmt per Cardiology Possible muscolskeletal/neurogenic pain; MRI pending 3. anemia- epo. if stays, check iron studies 4. hyponatremia- monitor w/ dialysis 5. monitor on steroids per medicine discussed w/ hD RN in detail Patient seen and examined via telemedicine, with the assistance of theHD RN > 25 min spent in evaluation and mgmt of patient Attestations Medical Necessity Statement*: per medicine Time Spent in Patient Care: 16 - 35 minutes (>than 50% of time spent in counselling and/or direct pt care on unit). Coding Level of Care Code Acute French Weaver for Ger Godfrey
--- NOTE | 2021-09-16 07:33 | PC.NURSE ---
Report received from PORFIRIO Alcazar. Patient is in dialysis at this time.
[2021-09-16] MEDS: isosorbide mononitrate ER 60 mg Tablet PO (08:52)
[2021-09-16] MEDS: epoetin alfa 10,000 unit/mL INJ 10000 UNIT SUBCUT (08:52)
[2021-09-16] MEDS: oxyCODONE 5 mg IR Tab/Cap PO ×2 (08:52→19:55)
[2021-09-16] MEDS: metoprolol tartrate 25 mg Tablet PO ×2 (08:53→19:54)
[2021-09-16] MEDS: pregabalin 75 mg Capsule PO (08:53)
[2021-09-16] MEDS: predniSONE 20 mg Tablet 40 MG PO (08:53)
[2021-09-16] MEDS: ipratropium-albuterol 3 mL Neb INHALATION ×3 (09:01→20:53)
--- NOTE | 2021-09-16 10:58 | PC.SOCIAL ---
IMM update IMM updated with patient. Copy pg 2 provided. Verbalized an understanding. Initialled, dated, timed, and placed in chart.
[2021-09-16 11:12] LABS: Glucose Point of Care 155 mg/dL (70-110)
[2021-09-16] MEDS: sevelamer 800 mg Tablet 2400 MG PO ×2 (11:41→17:38)
[2021-09-16] MEDS: insulin lispro 100 unit/1 mL SUBCUT ×3 (11:42→21:00)
[2021-09-16] MEDS: sodium polystyrene sulfonate 15 gm/60 mL Btl 30 GM PO (13:38)
--- NOTE | 2021-09-16 14:30 | PM.PN ---
Subjective Subjective: Interval history: Seen this morning. Patient does complain of anxiety. But states that the anxiety medication helped. He did not complain of chest pain today. His fistula stopped functioning and he was unable to get dialysis today. Vitals/I&O/Wt Last Vital Signs Temp 97.6 F 09/16/21 11:46 Pulse 85 09/16/21 11:46 Resp 16 09/16/21 11:46 BP 138/76 09/16/21 11:46 Pulse Ox 96 09/16/21 11:46 09/15/21 09/16/21 09/16/21 22:59 06:59 14:59 Intake Total 640 / 1000 840 / 840 Balance 640 / 1000 840 / 840 Weight last 48 hrs Weight 94 kg Physical Exam Narrative: EXAM NARRATIVE: Constitutional: Awake, comfortable seen appearing comfortable in bed room 106. ENT: Wet mucosa,non icteric, appears comfortable. Throat nonerythematous, no evidence of swelling noted. Patient able to swallow. Lungs: Clear to auscultation bilaterally, no wheezes no rhonchi appreciated. CVS: S1 S2, no murmurs Abdo: Soft, nontender Ext 4: No edema noted. Data : 09/15/21 04:55 09/16/21 02:16 A&P Assessment and plan (1) Atypical chest pain: Status: Acute (2) Atherosclerotic heart disease of [place] coronary artery with other forms of angina pectoris: Status: Acute (3) Anemia: Status: Acute Qualifiers: Anemia type: unspecified type Qualified Code(s): D64.9 - Anemia, unspecified (4) Hemochromatosis: Status: Acute Qualifiers: Hemochromatosis type: unspecified Qualified Code(s): E83.119 - Hemochromatosis, unspecified (5) Ischemic cardiomyopathy: Status: Acute (6) Mixed hyperlipidemia: Status: Acute Additional A&P Information #NSTEMI #Persistent chest pain Patient was admitted for NSTEMI He underwent cardiac catheterization x3. CTA ruled out PE, no signs aortic dissection, cervical lumbar CT scan did show disc bulging and postoperative surgical changes. Patient's chest pain does not improve upon movement. He describes it as if someone is putting her foot on his chest. Patient had a positive stress test and was [facility]. Stress test did show reversible ischemia and FFR showed nonspecific changes. He did not report any chest pain today. Anxiety is better controlled with Xanax. We will continue prednisone for another 2 days and then stop.. Patient is not a candidate for Ranexa due to his end-stage renal disease. Imdur was increased to [address] Landis and Dr. Gallegos on board Optimization of antianginal medications #Cervical spine radiculopathy? ?MRI C-spine done this morning. Report pending. Orthopedic surgery was consulted. Will follow recommendations Patient's pain that is deep in his chest does also radiated to both arms at some point and he also has numbness tingling in his arms. He will be following outpatient with Dr. Esquivel's office. ?Severe spinal canal stenosis at lumbar region. He will follow up outpatient with Dr. Esquivel for that as well. #End-stage renal disease Tuesday, dialysis after contrast today Hemoglobin at goal Hold azathioprine Unable to be dialyzed today due to fistula malfunction. Have ordered a tunneled dialysis catheter. N.p.o. at midnight for catheter placement in the morning with Dr. Howell and subsequently dialysis treatment. After that patient will be discharged. I have discussed this with him in detail and he agrees with the plan. Renal dialysis diet after angiogram today DVT prophylaxis: Heparin Full code Patient has refused LifeVest, AICD evaluation as per Dr. Landis after discharge Discharge in a.m. after tunneled dialysis catheter placement and dialysis. Attestations Medical Necessity Statement*: Greater than 24-hour stay. Discharge and tomorrow Coding Level of Care Code Acute Rubber Belt Splicer for g Fwd Diagnoses Atypical chest pain R07.89 Atherosclerotic heart disease of [place] coronary artery with other forms of angina pectoris I25.118 Anemia D64.9 Anemia type: unspecified type Hemochromatosis E83.119 Hemochromatosis type: unspecified Ischemic cardiomyopathy I25.5 Mixed hyperlipidemia E78.2
[2021-09-16 17:08] LABS: Glucose Point of Care 152 mg/dL (70-110)
[2021-09-16] MEDS: clopidogrel 75 mg Tablet PO (19:54)
[2021-09-16] MEDS: atorvastatin 40 mg Tablet PO (19:54)
[2021-09-16 19:59] LABS: Glucose Point of Care 227 mg/dL (70-110)
--- NOTE | 2021-09-16 20:09 | PC.NURSE ---
Dr. Dawkins ordered to hold midnight dose of Heparin due to dialysis catheter placement in AM.
--- NOTE | 2021-09-16 22:09 | PC.NURSE ---
IV started on patient for procedure in AM. Patient asking for IV Toradol that he used to take here. Dr. Dawkins notified. PRN Toradol ordered.
[2021-09-16] MEDS: ketorolac 30 mg/mL INJ 15 MG IVP (23:30)
[2021-09-17] VITALS (18 sets, daily range): BP systolic 122–156; BP diastolic 64–88; PULSE 69–80; RESP 12–20; TEMP 36.2–36.8; O2SAT 94–99
--- NOTE | 2021-09-17 | SCC_ITS ---
Procedure Done: 1. Placement of 23 cm long sixteen [place]ali AshSplit tunneled hemodialysis catheter in the right internal jugular vein 2. Fluoroscopic guidance and interpretation for placement of catheter 3. Ultrasound guidance to access the right internal jugular vein 90.6seconds of fluoroscopic guidance, for a cumulative dose of 28.79 mGy, was provided to Dr. Howell by the radiology department. C-arm images of the chest were saved for the patient's permanent record. [facility]
[2021-09-17] MEDS: ALPRAZolam 0.5 mg Tablet 0.25 MG PO (03:00)
[2021-09-17 04:36] LABS: Anion Gap 26.3 (5-19); Calcium 7.6 mg/dL (8.5-10.5); Carbon Dioxide 21 mmol/L (22-29); Chloride 87 mmol/L (98-107); Glomerular Filtration Rate 5.6 mL/min (90-130); Glucose 125 mg/dL (65-115); Magnesium 2.1 mg/dL (1.7-2.3); Osmolality Calculated 295 mOsm/kg (285-295); Potassium 5.3 mmol/L (3.5-5.1); Sodium 129 mmol/L (136-145)
[2021-09-17 04:45] LABS: Blood Urea Nitrogen 83 mg/dL (6-20)
[2021-09-17] MEDS: duloxetine 20 mg Capsule PO (05:31)
[2021-09-17] MEDS: aspirin 81 mg EC Tablet PO (05:31)
[2021-09-17] MEDS: oxyCODONE 5 mg IR Tab/Cap PO ×2 (05:31→16:58)
[2021-09-17] MEDS: pantoprazole DR 40 mg Tablet PO (05:31)
--- NOTE | 2021-09-17 05:36 | PC.NURSE ---
Chlorehexidine wipes to patient's chest. Patient assisted with bed bath. Patient got up to chair for bed bath. Patient became short of breath and labored breathing during bed bath. After bed bath, patient was assisted back to bed and shortness of breath resolved. Oxygen saturation remained WNL on 2 L NC.
[2021-09-17 06:33] LABS: Glucose Point of Care 164 mg/dL (70-110)
--- NOTE | 2021-09-17 06:58 | PC.NURSE ---
Chest shaved and chlorhexidine wipes again.
[2021-09-17 07:20] LABS: Ferritin 492 ng/mL (30-400); Iron 100 ug/dL (59-158); Percent Saturation 34.4 % (20-50); Total Iron Binding Capacity 290 mcg/dl; Unsaturated Iron Binding 190 ug/dL (112-347)
--- NOTE | 2021-09-17 07:26 | PC.NURSE ---
To surgery For Tunneled port Hemodialysis placement.
--- NOTE | 2021-09-17 07:37 | PM.CONSULT ---
Providers/Reason For Consult Consulting Physician/Specialty*: General Surgery Dr. Howell Reason for Consult*: Hemodialysis catheter placement Attending Physician: Priscila Soares MD Primary Care Provider: Michael Eubanks DO History of Present Illness History of Present Illness Marlon Dorantes is a 51 year old male who has ESRD and was getting dialyzed through a left forearm AV fistula. Unfortunately fistula stopped functioning yesterday and I was consulted for placement of dialysis catheter. Patient states that he had a right IJ hemodialysis catheter back in 2018. Review of Systems General: Reports: 10 or more systems reviewed and unremarkable except in HPI and below Meds/Allergies Home Medications and Allergies Home Medications Medication Instructions Recorded Confirmed Last Taken Type nitroglycerin 0.4 mg sublingual 0.4 mg SUBLINGUAL Q5M PRN 10/31/19 09/07/21 Unknown History tablet promethazine 12.5 mg tablet 12.5 mg PO Q6H PRN 04/29/20 09/07/21 07/01/20 History 12.5 mg lidocaine-prilocaine See Rx Instructions .ROUTE .COMPLEX 05/24/20 09/07/21 07/03/21 History albuterol sulfate 90 mcg/actuation 2 puff INHALATION QID PRN 30 Days 12/25/20 09/07/21 07/06/21 Rx aerosol inhaler #8.5 g fluticasone propionate 50 1 spray INTRANASAL BID PRN ml 03/10/21 09/07/21 Unknown History mcg/actuation nasal spray,suspension pregabalin 75 mg capsule 75 mg PO BID 03/10/21 09/07/21 09/07/21 History sevelamer HCl See Rx Instructions .ROUTE .COMPLEX 05/18/21 09/07/21 05/17/21 History duloxetine 20 mg PO QAM 07/06/21 09/07/21 09/07/21 History prednisone 10 mg PO QAM 07/06/21 09/07/21 09/07/21 History Entresto 1 tab PO BID #90 tab 07/10/21 09/07/21 09/07/21 10:00 Rx oxycodone 5 mg PO BID PRN 09/07/21 09/07/21 Unknown History pantoprazole 40 mg PO QAM 09/07/21 09/07/21 09/07/21 History aspirin 81 mg PO QAM #30 tab 09/11/21 09/07/21 09/07/21 Rx atorvastatin 40 mg PO BEDTIME #90 tab 09/11/21 09/07/21 Unknown Rx clopidogrel 75 mg PO BEDTIME #30 tab 09/11/21 09/07/21 09/06/21 Rx isosorbide mononitrate 60 mg PO DAILY #90 tab 09/11/21 Unknown Rx metoprolol tartrate 25 mg PO BIDWMEAL #60 tab 09/11/21 09/07/21 07/06/21 Rx azathioprine 50 mg tablet See Rx Instructions .ROUTE 09/14/21 Unknown Rx .COMPLEX #30 tab Allergies Allergy/AdvReac Type Severity Reaction Status Date / Time azithromycin Allergy ADR-Chest Verified 09/07/21 17:17 Pain carvedilol AdvReac ADR-Dizzine Verified 09/07/21 17:17 ss Current Medications Current Medications Generic Name Dose Route Start Last Admin Trade Name Freq PRN Reason Stop Dose Admin Albuterol/Ipratropium 3 ml 09/07/21 03:00 09/16/21 20:53 Ipratropium-Albuterol 3 Ml Neb INHALATION 3 ml Q6H.RESPIRATORY JANNET Administration Alprazolam 0.25 mg 09/12/21 12:48 09/17/21 03:00 Alprazolam 0.5 Mg Tablet PO 0.25 mg TID PRN Administration ANXIETY Aspirin 81 mg 09/08/21 06:00 09/17/21 05:31 Aspirin 81 Mg Ec Tablet PO 81 mg QAM JANNET Administration Atorvastatin Calcium 40 mg 09/08/21 21:00 09/16/21 19:54 Atorvastatin 40 Mg Tablet PO 40 mg BEDTIME JANNET Administration Azathioprine 25 mg 09/11/21 09:30 09/16/21 08:52 Azathioprine 50 Mg Tablet PO 25 mg 0800 JANNET Administration Clopidogrel Bisulfate 75 mg 09/08/21 21:00 09/16/21 19:54 Clopidogrel 75 Mg Tablet PO 75 mg BEDTIME JANNET Administration Cyclobenzaprine HCl 10 mg 09/10/21 11:40 09/16/21 19:54 Cyclobenzaprine 10 Mg Tablet PO 10 mg TID JANNET Administration Duloxetine HCl 20 mg 09/08/21 06:00 09/17/21 05:31 Duloxetine 20 Mg Capsule PO 20 mg QAM JANNET Administration Fluticasone Propionate 1 spray 09/08/21 20:24 09/11/21 09:17 Fluticasone Nasal [place] 16gm Btl INTRANASAL 1 spray BID PRN Administration Nasal Congestion Heparin Sodium (Porcine) 5,000 unit 09/09/21 12:00 09/16/21 21:59 Heparin 5,000 Unit/Ml Inj 1 Ml SUBCUT Not Given Q12H [facility] Insulin Human Lispro 0 unit 09/09/21 18:00 09/17/21 07:23 Insulin Lispro 100 Unit/1 Ml SUBCUT Not Given WM&BEDTIME [facility] Protocol Isosorbide Mononitrate 60 mg 09/11/21 10:45 09/16/21 08:52 Isosorbide Mononitrate Er 60 Mg Tablet PO 60 mg DAILY [facility] Administration Ketorolac Tromethamine 15 mg 09/16/21 22:05 09/16/21 23:30 Ketorolac 30 Mg/Ml Inj IVP 09/21/21 22:04 15 mg Q6H PRN Administration MODERATE PAIN Lidocaine 1 patch 09/09/21 15:25 09/16/21 19:56 Lidocaine 5% Patch TOPICAL Not Given [id number] [facility] Metoprolol Tartrate 25 mg 09/11/21 21:00 09/16/21 19:54 Metoprolol Tartrate 25 Mg Tablet PO 25 mg BID@0900,2100 [facility] Administration Nitroglycerin 0.4 mg 09/07/21 23:19 09/09/21 09:06 Nitroglycerin 0.4 Mg Sublingual Tablet SUBLINGUAL 1 applic Q5M PRN Administration Chest Pain Ondansetron HCl 4 mg 09/07/21 23:17 09/08/21 06:19 Ondansetron 2 Mg/Ml Sdv 2 Ml IVP 4 mg Q8H PRN Administration vomiting, or N/V if npo Oxycodone HCl 5 mg 09/16/21 19:26 09/17/21 05:31 Oxycodone 5 Mg Ir Tab/Cap PO 5 mg BID PRN Administration PAIN Pantoprazole Sodium 40 mg 09/09/21 06:00 09/17/21 05:[address] 40 Mg Tablet PO 40 mg QAM [facility] Administration Prednisone 40 mg 09/13/21 18:35 09/16/21 08:53 Prednisone 20 Mg Tablet PO 40 mg DAILY [facility] Administration Sacubitril/Valsartan 1 each 09/08/21 09:00 09/12/21 09:51 Sacubitril/Valsartan 24-26 Mg Tablet PO 1 each BID JANNET Administration Sevelamer Carbonate 2,400 mg 09/08/21 21:00 09/16/21 17:38 Sevelamer 800 Mg Tablet PO 2,400 mg TIDWM JANNET Administration PFSH Acute PFSH: Medical History Atherosclerotic heart disease of [place] coronary artery without angina pectoris Benign essential hypertension Cardiomyopathy CHF NYHA class III (symptoms with mildly strenuous activities) COPD (chronic obstructive pulmonary disease) Diabetes mellitus DVT (deep venous thrombosis) Dyslipidemia ESRD (end stage renal disease) Hemochromatosis Hemoptysis Idiopathic pulmonary hemosiderosis Mixed hyperlipidemia Non-ST elevation (NSTEMI) myocardial infarction Pneumonia Pulmonary hypertension Sepsis Surgical History Fistula Left Wrist H/O elbow surgery H/O hand surgery H/O neck surgery History of back surgery History of intravascular stent placement History of thoracotomy Family History Grandmother , In her 50's Myocardial infarction Father Diabetes Mother Diabetes Social History Smoking and tobacco status: former smoker Quit status (tobacco): has quit using tobacco Year quit tobacco: 1999 - 2PPD x 20 Years Second hand smoke exposure: No Alcohol intake: current Alcohol intake frequency: holidays/special occasions only Lives independently: Yes Household members: spouse Marital status: Current occupational status: disabled History of recent travel: No Current gender identity: Male Vitals/I&O/Wt Last Vital Signs Temp 97.1 F L 09/17/21 02:59 Pulse 71 09/17/21 03:37 Resp 20 H 09/17/21 05:31 BP 122/76 09/17/21 02:59 Pulse Ox 99 09/17/21 02:59 09/16/21 09/17/21 09/17/21 22:59 06:59 14:59 Intake Total 220 / 1060 Balance 220 / 1060 Physical Exam Narrative: EXAM NARRATIVE: HEENT: Normocephalic Eye: Sclera /conjunctiva normal Abdomen: Soft to palpation Neurological: Oriented to place person and time Skin: Intact, left upper extremity AV fistula A&P Assessment and plan (1) ESRD (end stage renal disease): 51-year-old male with ESRD, with a nonfunctioning AV fistula who needs a tunneled hemodialysis catheter for dialysis Plan for placement of tunneled hemodialysis catheter under MAC today Procedure, risks, benefits and alternatives have been discussed with the patient who wishes to proceed with surgery. Status: Acute Consult Attestations Medical Necessity Statement: As per attending physician Coding Level of Care Code Acute Satellite Installer for Chg Fwd Diagnoses ESRD (end stage renal disease) N18.6
--- NOTE | 2021-09-17 07:43 | ANES.PREANE2 ---
Pre-Anesthetic Assessment Pre-Anesthetic Assessment: Height/Weight: Height 5 ft 10 in Weight 94 kg Temp Pulse Resp BP Pulse Ox 97.1 F L 71 20 H 122/76 99 09/17/21 02:59 09/17/21 03:37 09/17/21 05:31 09/17/21 02:59 09/17/21 02:59 Preop Diagnosis: esrd Proposed Procedure: Operation Date: 09/08/21 16:30 Proposed Procedures p Cardiac Catheterization(Not Applicable) - Isauro Landis MD Operation Date: 09/09/21 09:30 Proposed Procedures p Cardiac Catheterization(Not Applicable) - Vaibhav Gallegos M.D Operation Date: 09/12/21 10:30 Proposed Procedures p Cardiac Catheterization(Not Applicable) - Vaibhav Gallegos M.D Operation Date: 09/17/21 08:00 Proposed Procedures p Dialysis Catheter Insertion(Not Applicable) - Lb Howell MD Was Beta Bjorn taken within 24 hours: Yes Was Clonidine taken within 24 hours: N/A Social: Social History: No alcohol and No tobacco Exam: Pre-Anes Outpt Exam: alert, oriented x 3, clear to auscultation bilaterally and regular rate & rhythm Airway: Submandibular: WNL Cervical ROM: WNL MP: 3 Dentition: False History/ROS: No significant history except as noted Pulmonary: Pulmonary: LOPEZ and SOB Comments: O2 at home as needed CV/HEM: CV/HEM: Anemia, Angina (Stable), CAD, HTN and NH : : Chronic renal failure Comments: M, W, F dialysis; failed L AV fistula Hepatic: Hepatic: None reported GI: GI: None reported Metabolic: Metabolic: Hyperlipidemia Musc/skel: Musc/skel: OA/DJD (cervical fusion) Neuropsych: Neuropsych: Anxiety Anesthetic Plan: ASA status: 3 Anesthesia: Anesthesia Evaluation and MAC Risk of > 500 ml blood loss (7ml/kg in children): No Meds/Allergies Current Medications: Current Medications Generic Name Dose Route Start Last Admin Trade Name Freq PRN Reason Stop Dose Admin Albuterol/Ipratrop ium 3 ml 09/07/21 03:00 09/16/21 20:53 Ipratropium-Albu terol 3 Ml Neb INHALATION 3 ml Q6H.RESPIRATORY S [facility] Administration Alprazolam 0.25 mg 09/12/21 12:48 09/17/21 03:00 Alprazolam 0.5 M g Tablet PO 0.25 mg TID PRN Administration ANXIETY Aspirin 81 mg 09/08/21 06:00 09/17/21 05:31 Aspirin 81 Mg Ec Tablet PO 81 mg QAM [facility] Administration Atorvastatin Calci um 40 mg 09/08/21 21:00 09/16/21 19:54 Atorvastatin 40 Mg Tablet PO 40 mg BEDTIME [facility] Administration Azathioprine 25 mg 09/11/21 09:30 09/16/21 08:52 Azathioprine 50 Mg Tablet PO 25 mg 0800 [facility] Administration Clopidogrel Bisulf ate 75 mg 09/08/21 21:00 09/16/21 19:54 Clopidogrel 75 M g Tablet PO 75 mg BEDTIME [facility] Administration Cyclobenzaprine HC l 10 mg 09/10/21 11:40 09/16/21 19:54 Cyclobenzaprine 10 Mg Tablet PO 10 mg TID JANNET Administration Duloxetine HCl 20 mg 09/08/21 06:00 09/17/21 05:31 Duloxetine 20 Mg Capsule PO 20 mg QAM [facility] Administration Fluticasone Propio desmond 1 spray 09/08/21 20:24 09/11/21 09:17 Fluticasone [place] 16gm Btl INTRANASAL 1 spray BID PRN Administration Nasal Congestion Heparin Sodium (Po rcine) 5,000 unit 09/09/21 12:00 09/16/21 21:59 Heparin 5,000 Un it/Ml Inj 1 Ml SUBCUT Not Given Q12H [facility] Insulin Human Lisp ro 0 unit 09/09/21 18:00 09/17/21 07:23 Insulin Lispro 1 00 Unit/1 Ml SUBCUT Not Given WM&BEDTIME [facility] Protocol Isosorbide Mononit rate 60 mg 09/11/21 10:45 09/16/21 08:52 Isosorbide [place] itrate Er 60 Mg Ta blet PO 60 mg DAILY [facility] Administration Ketorolac Trometha mine 15 mg 09/16/21 22:05 09/16/21 23:30 Ketorolac 30 Mg/ Ml Inj IVP 09/21/21 22:04 15 mg Q6H PRN Administration MODERATE PAIN Lidocaine 1 patch 09/09/21 15:25 09/16/21 19:56 Lidocaine 5% Pat ch TOPICAL Not Given [id number] [facility] Metoprolol Tartrat e 25 mg 09/11/21 21:00 09/16/21 19:54 Metoprolol Tartr ate 25 Mg Tablet PO 25 mg BID@0900,2100 JANNET Administration Nitroglycerin 0.4 mg 09/07/21 23:19 09/09/21 09:06 Nitroglycerin 0. 4 Mg Sublingual Ta blet SUBLINGUAL 1 applic Q5M PRN Administration Chest Pain Ondansetron HCl 4 mg 09/07/21 23:17 09/08/21 06:19 Ondansetron 2 Mg /Ml Sdv 2 Ml IVP 4 mg Q8H PRN Administration vomiting, or N/V if npo Oxycodone HCl 5 mg 09/16/21 19:26 09/17/21 05:31 Oxycodone 5 Mg I r Tab/Cap PO 5 mg BID PRN Administration PAIN Pantoprazole Sodiu m 40 mg 09/09/21 06:00 09/17/21 05:[address] 40 Mg Tablet PO 40 mg QAM JANNET Administration Prednisone 40 mg 09/13/21 18:35 09/16/21 08:53 Prednisone 20 Mg Tablet PO 40 mg DAILY JANNET Administration Sacubitril/Valsart an 1 each 09/08/21 09:00 09/12/21 09:51 Sacubitril/Valsa rtan 24-26 Mg Tabl et PO 1 each BID JANNET Administration Sevelamer Carbonat e 2,400 mg 09/08/21 21:00 09/16/21 17:38 Sevelamer 800 Mg Tablet PO 2,400 mg TIDWM JANNET Administration PFSH Anesthesia PFSH: Medical History Atherosclerotic heart disease of [place] coronary artery without angina pectoris Benign essential hypertension Cardiomyopathy CHF NYHA class III (symptoms with mildly strenuous activities) COPD (chronic obstructive pulmonary disease) Diabetes mellitus DVT (deep venous thrombosis) Dyslipidemia ESRD (end stage renal disease) Hemochromatosis Hemoptysis Idiopathic pulmonary hemosiderosis Mixed hyperlipidemia Non-ST elevation (NSTEMI) myocardial infarction Pneumonia Pulmonary hypertension Sepsis Surgical History Fistula Left Wrist H/O elbow surgery H/O hand surgery H/O neck surgery History of back surgery History of intravascular stent placement History of thoracotomy Family History Grandmother , In her 50's Myocardial infarction Father Diabetes Mother Diabetes Social History Smoking and tobacco status: former smoker Quit status (tobacco): has quit using tobacco Year quit tobacco: 1999 - 2PPD x 20 Years Second hand smoke exposure: No Alcohol intake: current Alcohol intake frequency: holidays/special occasions only Lives independently: Yes Household members: spouse Marital status: Current occupational status: disabled History of recent travel: No Current gender identity: Male Data Anesthesia CBC & Chem 7: 09/15/21 04:55 09/17/21 02:19 Other Labs: Laboratory Results - last 48 hr 09/15/21 09/15/21 09/15/21 11:41 16:52 20:06 Sodium Potassium Chloride Carbon Dioxide Anion Gap BUN Creatinine GFR Calculation Glucose POC Glucose 109 216 H 260 H Calculated Osmolality Calcium Magnesium Iron TIBC % Saturation Unsat Iron Binding 09/15/21 09/16/21 09/16/21 23:55 02:16 06:30 Sodium 132 L Potassium 5.1 Chloride 90 L Carbon Dioxide 26 Anion Gap 21.1 H BUN 61 H Creatinine 8.7 H* GFR Calculation 6.5 L Glucose 117 H POC Glucose 155 H 117 H Calculated Osmolality 292 Calcium 8.0 L Magnesium Iron TIBC % Saturation Unsat Iron Binding 09/16/21 09/16/21 09/16/21 10:41 16:44 19:36 Sodium Potassium Chloride Carbon Dioxide Anion Gap BUN Creatinine GFR Calculation Glucose POC Glucose 155 H 152 H 227 H Calculated Osmolality Calcium Magnesium Iron TIBC % Saturation Unsat Iron Binding 09/17/21 09/17/21 09/17/21 02:19 02:19 06:03 Sodium 129 L Potassium 5.3 H Chloride 87 L Carbon Dioxide 21 L Anion Gap 26.3 H BUN 83 H* Creatinine 9.9 H* GFR Calculation 5.6 L Glucose 125 H POC Glucose 164 H Calculated Osmolality 295 Calcium 7.6 L Magnesium 2.1 Iron 100 TIBC 290 % Saturation 34.4 Unsat Iron Binding 190 Cardiac Studies: Echocardiogram 07/06/21
--- NOTE | 2021-09-17 07:48 | SC_ITS ---
WS: [id number] C-ARM RADIOGRAPHS CHEST; 2 IMAGES HISTORY: SURGERY COMPARISON: None available. Intraoperative imaging during dialysis catheter placement. The tips overlie the distal SVC. SC/C-arm FL for CVA [id number] IMPRESSION: Intraoperative imaging during dialysis catheter placement.
[2021-09-17] MEDS: lidocaine 1% INJ 20 mL INJECTION (08:15)
[2021-09-17] MEDS: heparin, porcine 1,000 unit/mL INJ 10 mL 10000 UNIT IRRIGATION (08:16)
--- NOTE | 2021-09-17 08:40 | P.OP_ITS ---
Operative Report Date of procedure: September 17, 2021 Pre-op Diagnosis: ESRD with nonfunctioning AV fistula Post-op diagnosis: same Procedure Done: 1. Placement of 23 cm long sixteen [place] AshSplit tunneled hemodialysis catheter in the right internal jugular vein 2. Fluoroscopic guidance and interpretation for placement of catheter 3. Ultrasound guidance to access the right internal jugular vein Pathology: none sent Surgeon: Lb Howell Anesthesia: MAC Condition: stable Disposition: PACU Procedure: The patient was taken to the operating room and placed under MAC after IV antibiotic had been administered. The chest and neck were prepped and draped in a sterile manner bilaterally. An ultrasound of the right internal jugular vein revealed patent flow, no thrombus identified. Using introducer needle the internal jugular vein on the right side was accessed and guidewire passed into the right atrium under fluoroscopy. Under fluoroscopy the location for the dialysis catheter was marked. Using 11 blade a skin incision was extended at the vein access site as well as the previously marked location on the right chest wall. The dialysis catheter was attached to the tunneler and passed subcutaneously, exiting at the venous access site. Serial dilators were passed over the guidewire under fluoroscopy. Finally the dilator peel-away sheath was passed over the guidewire and the inner dilator and guidewire was removed and the dialysis catheter was introduced into the right internal jugular vein as the peel-away sheath was removed. The tip of the catheter was noted to be in the right atrium. Both ports of the catheter serenity blood and flushed easil y. The catheter was sutured to the skin using 2-0 Prolene and the venous access site was closed with 4-0 Monocryl and Dermabond. A total of 5 mL of 1:10,000 heparin was injected into the 2 ports under dialysis catheter. Fluoroscopic guidance and interpretation for passage of guidewire and dilator and placement of catheter in the right atrium.
--- NOTE | 2021-09-17 09:26 | PM.PN ---
Subjective Subjective: Interval history: no n/v/d/hunter/cp/sob. s/p new RT IJ dialysis catheetr Medications: Reviewed: Yes Medication Review Details: Current Medications Acetaminophen (Acetaminophen 325 Mg Tablet) 650 mg PO Q6H PRN PRN Reason: Mild/Mod Pain Or Temp >/= 101 Acetaminophen (Acetaminophen 325 Mg Tablet) 650 mg PO Q6H PRN PRN Reason: MILD PAIN Al Hydrox/Mg Hydrox/Simethicone (Fkld-Oay-Zqejxumwf-Maninder 30 Ml Udc) 30 ml PO Q15M PRN PRN Reason: INDIGESTION Albuterol Sulfate (Albuterol 8 Gm Mdi) 2 puff INHALATION QID.RESPIRATORY PRN PRN Reason: shortness of breath or wheezing Albuterol/Ipratropium (Ipratropium-Albuterol 3 Ml Neb) 3 ml INHALATION Q6H.RESPIRATORY [facility] Last Admin: 09/16/21 20:53 Dose: 3 ml Documented by: Alprazolam (Alprazolam 0.5 Mg Tablet) 0.25 mg PO TID PRN PRN Reason: ANXIETY Last Admin: 09/17/21 03:00 Dose: 0.25 mg Documented by: Aspirin (Aspirin 81 Mg Ec Tablet) 81 mg PO QAM [facility] Last Admin: 09/17/21 05:31 Dose: 81 mg Documented by: Atorvastatin Calcium (Atorvastatin 40 Mg Tablet) 40 mg PO BEDTIME [facility] Last Admin: 09/16/21 19:54 Dose: 40 mg Documented by: Atropine Sulfate (Atropine 1 Mg/Ml Sdv 1 Ml) 0.5 mg IVP PRN PRN PRN Reason: Symptomatic bradycardia Azathioprine (Azathioprine 50 Mg Tablet) 25 mg PO 0800 [facility] Last Admin: 09/16/21 08:52 Dose: 25 mg Documented by: Clopidogrel Bisulfate (Clopidogrel 75 Mg Tablet) 75 mg PO BEDTIME [facility] Last Admin: 09/16/21 19:54 Dose: 75 mg Documented by: Cyclobenzaprine HCl (Cyclobenzaprine 10 Mg Tablet) 10 mg PO TID [facility] Last Admin: 09/16/21 19:54 Dose: 10 mg Documented by: Dexamethasone (Dexamethasone 4 Mg/Ml Inj) 4 mg IVP Q5M PRN PRN Reason: Nausea unrelieved by Reglan Stop: 09/18/21 07:42 Dextrose (Dextrose 50% Syringe 50 Ml) 25 ml IVP ONCE PRN; Protocol PRN Reason: hypoglycemia protocol Dextrose (Dextrose 50% Syringe 50 Ml) 50 ml IVP PRN PRN; Protocol PRN Reason: hypoglycemia protocol Duloxetine HCl (Duloxetine 20 Mg Capsule) 20 mg PO QAM [facility] Last Admin: 09/17/21 05:31 Dose: 20 mg Documented by: Fentanyl (Fentanyl 50 Mcg/Ml Inj 2ml) 50 mcg IVP Q5M PRN PRN Reason: Pain level 6-10 PACU Phase I Stop: 09/18/21 07:42 Fluticasone Propionate (Fluticasone Nasal [place] 16gm Btl) 1 spray INTRANASAL BID PRN PRN Reason: Nasal Congestion Last Admin: 09/11/21 09:17 Dose: 1 spray Documented by: Glucagon (Glucagon 1 Mg/Ml Inj 1 Ml) 1 mg IM ONCE PRN; Protocol PRN Reason: Adult Acute Hypoglycemia Prot. Heparin Sodium (Porcine) (Heparin 5,000 Unit/Ml Inj 1 Ml) 5,000 unit SUBCUT Q12H [facility] Last Admin: 09/16/21 21:59 Dose: Not Given Documented by: Hydromorphone HCl (Hydromorphone 1 Mg/Ml Inj 1 Ml) 0.25 mg IVP Q10M PRN PRN Reason: Pain level 4-6 PACU Phase I Stop: 09/18/21 07:42 Hydromorphone HCl (Hydromorphone 1 Mg/Ml Inj 1 Ml) 0.5 mg IVP Q10M PRN PRN Reason: Pain level 7-10 PACU Phase I Stop: 09/18/21 07:42 Dextrose (D5w) 500 mls @ 100 mls/hr IV ONCE PRN; Protocol PRN Reason: Adult Acute Hypoglycemia Prot Nitroglycerin/Dextrose (Nitroglycerin Drip) 50 mg in 250 mls @ 0 mls/hr IV .Q0M JANNET; Protocol Sodium Chloride (Sodium Chloride 0.9%) 500 mls @ 999 mls/hr IV .Q31M PRN PRN Reason: HYPOTENSION Insulin Human Lispro (Insulin Lispro 100 Unit/1 Ml) 0 unit SUBCUT WM&BEDTIME [facility]; Protocol Last Admin: 09/17/21 07:23 Dose: Not Given Documented by: Isosorbide Mononitrate (Isosorbide Mononitrate Er 60 Mg Tablet) 60 mg PO DAILY [facility] Last Admin: 09/16/21 08:52 Dose: 60 mg Documented by: Ketorolac Tromethamine (Ketorolac 30 Mg/Ml Inj) 15 mg IVP Q6H PRN PRN Reason: MODERATE PAIN Stop: 09/21/21 22:04 Last Admin: 09/16/21 23:30 Dose: 15 mg Documented by: Lidocaine (Lidocaine 5% Patch) 1 patch TOPICAL [id number] [facility] Last Admin: 09/16/21 19:56 Dose: Not Given Documented by: Lidocaine/Prilocaine (Lidocaine-Prilocaine Cream 5 Gm) 0 applic TOPICAL PRN PRN PRN Reason: use as directed over fistula Magnesium Hydroxide (Magnesium Hydroxide 30 Ml Udc) 30 ml PO DAILY PRN PRN Reason: CONSTIPATION Meperidine HCl (Meperidine 50 Mg/Ml Inj) 12.5 mg IVP Q5M PRN PRN Reason: Shivering PACU Phase I Stop: 09/18/21 07:42 Metoclopramide HCl (Metoclopramide 5 Mg/Ml Sdv 2 Ml) 10 mg IVP Q5M PRN PRN Reason: Nausea unrelieved by Zofran Stop: 09/18/21 07:42 Metoprolol Tartrate (Metoprolol Tartrate 25 Mg Tablet) 25 mg PO BID@0900,2100 [facility] Last Admin: 09/16/21 19:54 Dose: 25 mg Documented by: Morphine Sulfate (Morphine 4 Mg/Ml Sdv 1 Ml) 2 mg IVP Q5M PRN PRN Reason: Pain level 2-5 PACU Phase I Stop: 09/18/21 07:42 Morphine Sulfate (Morphine 4 Mg/Ml Sdv 1 Ml) 2 mg IVP Q2M PRN PRN Reason: Pain level 6-10 PACU Phase I Stop: 09/18/21 07:42 Morphine Sulfate (Morphine 4 Mg/Ml Sdv 1 Ml) 0 mg IVP Q5M PRN PRN Reason: Breakthrough Pain PACU PhaseII Naloxone HCl (Naloxone 0.4 Mg/Ml Sdv) 0.1 mg IVP Q2M PRN PRN Reason: RESPIRATORY RATE < 8/MIN Nitroglycerin (Nitroglycerin 0.4 Mg Sublingual Tablet) 0.4 mg SUBLINGUAL Q5M PRN PRN Reason: Chest Pain Last Admin: 09/09/21 09:06 Dose: 1 applic Documented by: Nitroglycerin (Nitroglycerin 0.4 Mg Sublingual Tablet) 0.4 mg SUBLINGUAL Q5M PRN PRN Reason: CHEST PAIN Ondansetron HCl (Ondansetron 2 Mg/Ml Sdv 2 Ml) 4 mg IVP Q8H PRN PRN Reason: vomiting, or N/V if npo Last Admin: 09/08/21 06:19 Dose: 4 mg Documented by: Ondansetron HCl (Ondansetron 2 Mg/Ml Sdv 2 Ml) 4 mg IVP Q2M PRN PRN Reason: NAUSEA Ondansetron HCl (Ondansetron 2 Mg/Ml Sdv 2 Ml) 4 mg IVP Q5M PRN PRN Reason: Nausea PACU Phase I Stop: 09/18/21 07:42 Ondansetron HCl (Ondansetron 2 Mg/Ml Sdv 2 Ml) 4 mg IVP Q15M PRN PRN Reason: Nausea/Vomiting PACU PHASE II Oxycodone HCl (Oxycodone 5 Mg Ir Tab/Cap) 5 mg PO BID PRN PRN Reason: PAIN Last Admin: 09/17/21 05:31 Dose: 5 mg Documented by: Pantoprazole Sodium (Pantoprazole Dr 40 Mg Tablet) 40 mg PO QAM [facility] Last Admin: 09/17/21 05:31 Dose: 40 mg Documented by: Prednisone (Prednisone 20 Mg Tablet) 40 mg PO DAILY [facility] Last Admin: 09/16/21 08:53 Dose: 40 mg Documented by: Promethazine HCl (Promethazine 25 Mg Tablet) 12.5 mg PO Q6H PRN PRN Reason: Nausea Sacubitril/Valsartan (Sacubitril/Valsartan 24-26 Mg Tablet) 1 each PO BID [facility] Last Admin: 09/12/21 09:51 Dose: 1 each Documented by: Sevelamer Carbonate (Sevelamer 800 Mg Tablet) 1,600 mg PO BID PRN PRN Reason: LARGE SNACKS Sevelamer Carbonate (Sevelamer 800 Mg Tablet) 2,400 mg PO TIDWM [facility] Last Admin: 09/16/21 17:38 Dose: 2,400 mg Documented by: Vitals/I&O/Wt Last Vital Signs Temp 97.6 F 09/17/21 08:50 Pulse 76 11/25/21 08:50 Resp 14 09/17/21 08:50 BP 127/85 09/17/21 08:50 Pulse Ox 94 09/17/21 08:50 09/16/21 09/17/21 09/17/21 22:59 06:59 14:59 Intake Total 220 / 1060 0 / 0 Output Total 0 / 0 Balance 220 / 1060 0 / 0 Physical Exam Narrative: EXAM NARRATIVE: comfortable in bed,, NARD vss heent- nc/at, eomi, anicteric neck- no jvp lungs crackles b/l heart reg, no rub abd soft, nt, nd, + bs ext 1+ edema LUE AVF w/ thrill and bruit- per nurse can not use for HD neuro- a,a, o x 3 new rt ij tunneled catheter Data : 09/15/21 04:55 09/17/21 02:19 A&P Additional A&P Information 1. ESRD HD now: 2K bath, remove 2.5 L Dose medication for GFR less than 15 -will need outpt AV fistulagram -we appreciate Dr. Walden who placed a new tunneled catheetr this am 2. CAD S/p 3rd [facility] with intervention. Mgmt per Cardiology Possible muscolskeletal/neurogenic pain; MRI pending 3. anemia- epo. iron studies noted- T sat 34%, ferritin 492- outpt iv iron w/ hd 4. hyponatremia- monitor w/ dialysis 5. monitor on steroids per medicine discussed w/ follor nurse and HD RN in detail Patient seen and examined via telemedicine, with the assistance of the RN > 25 min spent in evaluation and mgmt of patient Attestations Medical Necessity Statement*: if has successful HD today, then renal okay for d/c Time Spent in Patient Care: 16 - 35 minutes (>than 50% of time spent in counselling and/or direct pt care on unit). Coding Level of Care Code Acute Celluloid Trimmer for Ger Godfrey
[2021-09-17] MEDS: cyclobenzaprine 10 mg Tablet PO ×2 (09:32→22:03)
[2021-09-17] MEDS: isosorbide mononitrate ER 60 mg Tablet PO (09:33)
[2021-09-17] MEDS: predniSONE 20 mg Tablet 40 MG PO (09:33)
[2021-09-17] MEDS: metoprolol tartrate 25 mg Tablet PO ×2 (09:33→21:15)
[2021-09-17] MEDS: morphine 4 mg/mL SDV 1 mL 2 MG IVP (09:47)
--- NOTE | 2021-09-17 10:19 | PM.PN ---
Subjective Subjective: Interval history: Seen today. Pt seen in dialysis. He got tunneled catheter done this AM. Feels better but continues to complain of anxiety and chest pain. Vitals/I&O/Wt Last Vital Signs Temp 97.6 F 09/17/21 08:50 Pulse 76 09/17/21 08:50 Resp 14 09/17/21 08:50 BP 127/85 09/17/21 08:50 Pulse Ox 94 09/17/21 08:50 09/16/21 09/17/21 09/17/21 22:59 06:59 14:59 Intake Total 220 / 1060 0 / 0 Output Total 0 / 0 Balance 220 / 1060 0 / 0 Physical Exam Narrative: EXAM NARRATIVE: Constitutional: Awake, comfortable seen appearing comfortable in dialysis room. ENT: Wet mucosa,non icteric, appears comfortable. Lungs: Clear to auscultation bilaterally, no wheezes no rhonchi appreciated. CVS: S1 S2, no murmurs Abdo: Soft, nontender Ext 4: No edema noted. Data : 09/15/21 04:55 09/17/21 02:19 A&P Assessment and plan (1) Atypical chest pain: Status: Acute (2) Atherosclerotic heart disease of [place] coronary artery with other forms of angina pectoris: Status: Acute (3) Anemia: Status: Acute Qualifiers: Anemia type: unspecified type Qualified Code(s): D64.9 - Anemia, unspecified (4) Hemochromatosis: Status: Acute Qualifiers: Hemochromatosis type: unspecified Qualified Code(s): E83.119 - Hemochromatosis, unspecified (5) Ischemic cardiomyopathy: Status: Acute (6) Mixed hyperlipidemia: Status: Acute Additional A&P Information #NSTEMI #Persistent chest pain Patient was admitted for NSTEMI He underwent cardiac catheterization x3. CTA ruled out PE, no signs aortic dissection, cervical lumbar CT scan did show disc bulging and postoperative surgical changes. Patient's chest pain does not improve upon movement. He describes it as if someone is putting her foot on his chest. Patient had a positive stress test and was taken to Director Of Clinical Education third time. Stress test did show reversible ischemia and FFR showed nonspecific changes. Anxiety is better controlled with Xanax. We will continue prednisone for another 2 days and then stop.. Patient is not a candidate for Ranexa due to his end-stage renal disease. Imdur was increased to [address] Landis and Dr. Gallegos on board Optimization of antianginal medications Pt will go for dialysis today. I have talked to him about getting discharged but patient continues to complain of chest pain which I believe is anxiety driven. He also reports feeling nervous. I have discussed with cardiology and they do not believe pain is cardiac in origin. #Cervical spine radiculopathy? ?MRI C-spine done this morning. Report pending. Orthopedic surgery was consulted. Will follow recommendations Patient's pain that is deep in his chest does also radiated to both arms at some point and he also has numbness tingling in his arms. He will be following outpatient with Dr. Esquivel's office. ?Severe spinal canal stenosis at lumbar region. He will follow up outpatient with Dr. Esquivel for that as well. #End-stage renal disease Tuesday, Hemoglobin at goal Hold azathioprine Unable to be dialyzed today due to fistula malfunction. He got tunneled catheter this AM and is now getting dialyzed. Renal dialysis diet after angiogram today DVT prophylaxis: Heparin Full code Patient has refused LifeVest, AICD evaluation as per Dr. Landis after discharge Attestations Medical Necessity Statement*: Plan to discharge today after dialysis. Coding Level of Care Code Acute Manager Reliability for g Fwd Diagnoses Atypical chest pain R07.89 Atherosclerotic heart disease of [place] coronary artery with other forms of angina pectoris I25.118 Anemia D64.9 Anemia type: unspecified type Hemochromatosis E83.119 Hemochromatosis type: unspecified Ischemic cardiomyopathy I25.5 Mixed hyperlipidemia E78.2
--- NOTE | 2021-09-17 10:26 | PC.NURSE ---
to hemodialysis room pt is alert, orientedx4. reports of weakness and unsteady gait when getting up. pt has talked to forest resource specialist. post tunneled catheter placement. small bruising noted on surrounding left upper chest and neck area.
--- NOTE | 2021-09-17 11:10 | PC.HD ---
Attempted HD yesterday (09/16/21); however, unable to access fistula d/t clotted access. Patient received tunnelled dialysis catheter this morning and dialysis was initiated with no issues noted. Catheter flushed well. Bulky dressing with small amount of post-op oozing noted. Patient mildly uncomfortable from his surgery; received 2 mg morphine prior to dialysis.
[2021-09-17 11:56] LABS: Glucose Point of Care 140 mg/dL (70-110)
[2021-09-17] MEDS: sevelamer 800 mg Tablet 2400 MG PO ×2 (12:00→16:54)
[2021-09-17 16:22] LABS: Glucose Point of Care 193 mg/dL (70-110)
[2021-09-17] MEDS: insulin lispro 100 unit/1 mL SUBCUT (17:02)
--- NOTE | 2021-09-17 17:30 | PC.NURSE ---
Hemodialysis site dressing change Pt right upper chest tunneled hemodialysis fistula dressings are saturated w/blood. Noted oozing. Removed saturated dressings and applied new pressure dressings. firm pressure held around access site for 2 mins.. minimal oozing noted underneath dressing. informed and received order for stat cbc. will monitor.
[2021-09-17 19:15] LABS: Basophils % 0.1 %; Hematocrit 24.9 % (42.0-52.0); Hemoglobin 8.1 g/dL (11.7-16.6); Lymphocytes # 0.1 10^3/uL (0.8-4.8); Lymphocytes % 1.5 %; Mean Corpuscular HGB Conc 32.5 g/dL (30.0-36.0); Mean Corpuscular Hemoglobin 30.9 pg (28.0-34.0); Mean Platelet Volume 10.7 fL (7.4-10.4); Monocytes # 0.4 10^3/uL (0.2-0.9); Monocytes % 5.3 %; Neutrophils # 7.34 10^3/uL (1.8-7.7); Neutrophils % 90.9 %; Nucleated Red Blood Cells % 0 %; Platelet Count 113 10^3/cmm (130-400); Red Blood Count 2.62 10^6/uL (4.1-5.3); Red Cell Distribution Width 17.2 % (12.1-15.1); White Blood Count 8.1 10^3/uL (4.0-10.0)
[2021-09-17 20:08] LABS: Glucose Point of Care 123 mg/dL (70-110)
[2021-09-17] MEDS: ipratropium-albuterol 3 mL Neb INHALATION (20:47)
[2021-09-17] MEDS: clopidogrel 75 mg Tablet PO (21:02)
[2021-09-17] MEDS: atorvastatin 40 mg Tablet PO (21:02)
[2021-09-17] MEDS: CLONazepam 0.5 mg Tablet PO (21:02)
[2021-09-17] MEDS: ketorolac 30 mg/mL INJ 15 MG IVP (21:03)
--- NOTE | 2021-09-17 21:27 | PC.NURSE ---
Around 1999: Patient requesting Flexeril. Medication no longer available on DEC. Notified Dr. Arana, Hospitalist. Orders received, see DEC.
--- NOTE | 2021-09-17 23:04 | PC.NURSE ---
Around 2300: Patient is bleeding at right IJ hemodiaylis insertion site. New dressing applied at 2016, 4x4 gauze pads covered wtih medipore. Dressing was saturated with sanguineous drainage at 2122. Reinforced dressing with ABD pad and foam tape. Vitals stable. Notified Dr. Dawkins, Hospitalist. Orders received, see orders. Will continue to monitor.
[2021-09-18] VITALS (24 sets, daily range): BP systolic 115–148; BP diastolic 71–86; PULSE 66–93; RESP 12–20; TEMP 36.2–36.7; O2SAT 93–100
[2021-09-18] MEDS: ipratropium-albuterol 3 mL Neb INHALATION ×4 (03:02→20:04)
[2021-09-18] MEDS: duloxetine 20 mg Capsule PO (05:39)
[2021-09-18] MEDS: oxyCODONE 5 mg IR Tab/Cap PO ×2 (05:40→16:46)
[2021-09-18] MEDS: aspirin 81 mg EC Tablet PO (05:40)
[2021-09-18] MEDS: pantoprazole DR 40 mg Tablet PO (05:41)
[2021-09-18 07:19] LABS: Glucose Point of Care 121 mg/dL (70-110)
--- NOTE | 2021-09-18 07:40 | PC.NURSE ---
Changed patients dressing over tunnel catheter insertion site three times throughout the night due bleeding, pressure bag applied from 0300 to 0500. Ecchymosis noted around insertion site, not hematoma. Patient alert and oriented, vitals stable.
--- NOTE | 2021-09-18 09:06 | PC.SOCIAL ---
IMM Update pg 2 of IMM updated and reviewed w/ patient and copy provided.
[2021-09-18 09:07] LABS: Basophils % 0.1 %; Eosinophils % 0.3 %; Hematocrit 24.1 % (42.0-52.0); Hemoglobin 7.4 g/dL (11.7-16.6); Lymphocytes # 0.2 10^3/uL (0.8-4.8); Lymphocytes % 3.1 %; Mean Corpuscular HGB Conc 30.7 g/dL (30.0-36.0); Mean Corpuscular Volume 97.6 fl (80-94); Mean Platelet Volume 10.3 fL (7.4-10.4); Monocytes # 0.6 10^3/uL (0.2-0.9); Monocytes % 8.1 %; Neutrophils # 6.43 10^3/uL (1.8-7.7); Neutrophils % 86.4 %; Nucleated Red Blood Cells % 0 %; Platelet Count 90 10^3/cmm (130-400); Red Blood Count 2.47 10^6/uL (4.1-5.3); Red Cell Distribution Width 17.4 % (12.1-15.1); White Blood Count 7.4 10^3/uL (4.0-10.0)
[2021-09-18] MEDS: metoprolol tartrate 25 mg Tablet PO ×2 (09:23→20:23)
[2021-09-18] MEDS: sacubitril/valsartan 24-26 mg Tablet 1 EACH PO ×2 (09:23→16:45)
[2021-09-18] MEDS: cyclobenzaprine 10 mg Tablet PO ×2 (09:23→20:23)
[2021-09-18] MEDS: predniSONE 20 mg Tablet 40 MG PO (09:23)
[2021-09-18] MEDS: CLONazepam 0.5 mg Tablet PO ×2 (09:24→16:46)
[2021-09-18 09:31] LABS: Blood Urea Nitrogen 55 mg/dL (6-20); Calcium 7.8 mg/dL (8.5-10.5); Carbon Dioxide 25 mmol/L (22-29); Chloride 94 mmol/L (98-107); Glomerular Filtration Rate 7.5 mL/min (90-130); Glucose 132 mg/dL (65-115); Osmolality Calculated 299 mOsm/kg (285-295); Sodium 136 mmol/L (136-145)
[2021-09-18] MEDS: isosorbide mononitrate ER 60 mg Tablet PO (10:00)
--- NOTE | 2021-09-18 10:32 | P.PN_ITS ---
Subjective Subjective: Interval history: s/p dialysis catheter placement on asa, plavix , has been bleeding overnight, Hb down to 7.4 Vitals/I&O/Wt Last Vital Signs Temp 98.2 F 09/17/21 20:00 Pulse 68 09/18/21 08:18 Resp 16 09/18/21 08:18 BP 148/86 09/18/21 03:30 Pulse Ox 98 09/18/21 08:18 09/17/21 09/18/21 09/18/21 22:59 06:59 14:59 Intake Total 660 / 1600 240 / 1600 Output Total 0 / 3000 0 / 3000 Balance 660 / -1400 240 / -1400 Physical Exam Narrative: EXAM NARRATIVE: Right chest : venous drainage from exit site , no significant hematoma around the surgical site in the neck Data : 09/18/21 08:36 09/18/21 08:36 A&P Assessment and plan (1) S/P hemodialysis catheter insertion: pod #1 , s/p hemodialysis catheter placement , with post op oozing from surgical site apply surgicel, pressure dressings and sand bag. Patient had cardiac stents placed couple of days ago and therefore Plavix cannot be stopped transfuse 1 unit prbc patient will need 1 more night of hospital stay Status: Acute Attestations Medical Necessity Statement*: as per primary Coding Level of Care Code Acute Sewing Machine Operator Paper Bags for Gabyg Fwd Diagnoses S/P hemodialysis catheter insertion Z99.2
--- NOTE | 2021-09-18 10:37 | PM.PN ---
Subjective Subjective: Interval history: PC exit site has been bleeding since placement yesterday. He was dialyzed Tuesday and this week. Medications: Reviewed: Yes Vitals/I&O/Wt Last Vital Signs Temp 98.2 F 09/17/21 20:00 Pulse 68 09/18/21 08:18 Resp 16 09/18/21 08:18 BP 148/86 09/18/21 03:30 Pulse Ox 98 09/18/21 08:18 09/17/21 09/18/21 09/18/21 22:59 06:59 14:59 Intake Total 660 / 1360 240 / 1600 Output Total 0 / 3000 0 / 3000 Balance 660 / -1640 240 / -1400 Physical Exam Const: COMMON NORMALS: no acute distress GENERAL APPEARANCE: cooperative Data : 09/18/21 08:36 09/18/21 08:36 A&P Additional A&P Information Patient seen and examined via telemedicine, with the assistance of the bedside RN ESRD. Unable to use AVF buttonhole cannulation. Permcath was placed yesterday. Persistent bleeding from catheter site. Surgery has seen patient. Decrease Hb with plan for transfusion pRBC. Plan to remain in hospital and dialyze tomorrow Attestations Medical Necessity Statement*: see above Time Spent in Patient Care: 16 - 35 minutes Coding Level of Care Code Acute Digital Music Instructor for Ger Godfrey
--- NOTE | 2021-09-18 11:25 | PC.PT ---
Fistula in R arm with uncontrolled bleeding. Attempted 3x with nursing requesting a hold until tomorrow the last time.
[2021-09-18] MEDS: sevelamer 800 mg Tablet 2400 MG PO ×2 (11:39→16:45)
[2021-09-18] MEDS: insulin lispro 100 unit/1 mL SUBCUT ×3 (12:26→20:23)
--- NOTE | 2021-09-18 12:45 | CT_ITS ---
WS: [id number] CT ANGIOGRAPHY abdomen and pelvis HISTORY: Rule out retroperitoneal hematoma TECHNIQUE: CT angiogram is performed during IV injection. Reformation images reviewed. All CT scans a [facility] [employer] use at least one of these dose optimization techniques: automated exposure contro l; mA and/or kV adjustment per patient size (includes targeted exams where dose is matched to clinica l indication); or iterative reconstruction. CONTRAST: Omnipaque 350; 95 mL IV. DLP: 1287.27 mGy.cm COMPARISON: 05/24/2020 Small layering LEFT pleural effusion and there is mild enhancement within both the parietal and visce ral pleura indicating this may be an empyema. There is adjacent atelectatic lung in the LEFT lower lo be. There are a few additional scattered opacifications at the RIGHT lung base. Moderate enlargement of the heart. No pericardial effusion. Small hiatal hernia. Abdominal aorta: Good opacification of the abdominal aorta. No aneurysm. Moderate atherosclerotic mirtha que continues throughout the aorta into the common iliac arteries. 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 No significant stenosis at the origin of the SMA. High-grade stenosis involving the renal arteries bilaterally. Liver and spleen are normal size. Gallbladder is very slightly contracted. There is a small low-atten uation lesion measuring 8 mm in the pancreatic head which is probably also present on the prior study but better seen today due to the contrast. Adrenal glands are normal. No adenopathy or ascites or re troperitoneal hemorrhage. Severe bilateral renal atrophy. There is extensive fecal retention throughout the colon. There is severe wall thickening involving th e sigmoid colon with numerous diverticula. Fat-containing umbilical hernia. There is moderate soft tissue edema and anasarca throughout the pelv is. Inguinal canals are patent bilaterally. Soft tissue nodular density measuring 2.4 x 1.5 cm in the [place] p RIGHT inguinal region. This may be a lymph node which is been a recent catheterization a small beverley vikki. This is medial to the vein and is not contiguous with the artery. CT/CT angio abdomen pelvis [address]9020 IMPRESSION: 1. No retroperitoneal hematoma. 2. Small layering LEFT pleural effusion with enhancement of the visceral and p arietal pleura. Small empyema should be considered. There is adjacent atelectas is LEFT lower lobe. 3. Marked wall thickening involving the sigmoid. There are numerous adjacent d iverticula. The soft tissue thickening may all be related to chronic episodes o f diverticulitis. Underlying neoplasm not excluded on this appearance. 4. Small soft tissue mass may be a lymph node in the deep RIGHT inguinal regio n. Alternatively a very small hematoma. 5. No free air. 6. Severe bilateral renal atrophy. 7. 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
[2021-09-18 13:05] LABS: Glucose Point of Care 171 mg/dL (70-110)
--- NOTE | 2021-09-18 13:18 | PC.NURSE ---
Orders to stop heparin due to increased bleeding
[2021-09-18] MEDS: sodium chloride 0.9% (100 ml) 100 ML 999 ML (13:29)
[2021-09-18] MEDS: iohexol 350 mg/mL 100 mL Btl IV (14:06)
--- NOTE | 2021-09-18 14:43 | P.PN_ITS ---
Subjective Subjective: Interval history: I have been asked by Dr. Soares to follow-up on Mr. Dorantes was seen by cardiology in the near past and signed off then since he was thought to be stable cardiac whyte. The reason for seeing him is question of retroperitoneal hemorrhage/hematoma due to groin bilateral bruising and bleeding from the site of dialysis catheter placed by surgery. Medications: Reviewed: Yes Medication Review Details: Current Medications Acetaminophen (Acetaminophen 325 Mg Tablet) 650 mg PO Q6H PRN PRN Reason: Mild/Mod Pain Or Temp >/= 101 Acetaminophen (Acetaminophen 325 Mg Tablet) 650 mg PO Q6H PRN PRN Reason: MILD PAIN Al Hydrox/Mg Hydrox/Simethicone (Qrlu-Rns-Xknmmifqg-Maninder 30 Ml Udc) 30 ml PO Q15M PRN PRN Reason: INDIGESTION Albuterol Sulfate (Albuterol 8 Gm Mdi) 2 puff INHALATION QID.RESPIRATORY PRN PRN Reason: shortness of breath or wheezing Albuterol/Ipratropium (Ipratropium-Albuterol 3 Ml Neb) 3 ml INHALATION Q6H.RESPIRATORY [facility] Last Admin: 09/16/21 20:53 Dose: 3 ml Documented by: Alprazolam (Alprazolam 0.5 Mg Tablet) 0.25 mg PO TID PRN PRN Reason: ANXIETY Last Admin: 09/17/21 03:00 Dose: 0.25 mg Documented by: Aspirin (Aspirin 81 Mg Ec Tablet) 81 mg PO QAM [facility] Last Admin: 09/17/21 05:31 Dose: 81 mg Documented by: Atorvastatin Calcium (Atorvastatin 40 Mg Tablet) 40 mg PO BEDTIME [facility] Last Admin: 09/16/21 19:54 Dose: 40 mg Documented by: Atropine Sulfate (Atropine 1 Mg/Ml Sdv 1 Ml) 0.5 mg IVP PRN PRN PRN Reason: Symptomatic bradycardia Azathioprine (Azathioprine 50 Mg Tablet) 25 mg PO 0800 [facility] Last Admin: 09/16/21 08:52 Dose: 25 mg Documented by: Clopidogrel Bisulfate (Clopidogrel 75 Mg Tablet) 75 mg PO BEDTIME [facility] Last Admin: 09/16/21 19:54 Dose: 75 mg Documented by: Cyclobenzaprine HCl (Cyclobenzaprine 10 Mg Tablet) 10 mg PO TID [facility] Last Admin: 09/16/21 19:54 Dose: 10 mg Documented by: Dexamethasone (Dexamethasone 4 Mg/Ml Inj) 4 mg IVP Q5M PRN PRN Reason: Nausea unrelieved by Reglan Stop: 09/18/21 07:42 Dextrose (Dextrose 50% Syringe 50 Ml) 25 ml IVP ONCE PRN; Protocol PRN Reason: hypoglycemia protocol Dextrose (Dextrose 50% Syringe 50 Ml) 50 ml IVP PRN PRN; Protocol PRN Reason: hypoglycemia protocol Duloxetine HCl (Duloxetine 20 Mg Capsule) 20 mg PO QAM [facility] Last Admin: 09/17/21 05:31 Dose: 20 mg Documented by: Fentanyl (Fentanyl 50 Mcg/Ml Inj 2ml) 50 mcg IVP Q5M PRN PRN Reason: Pain level 6-10 PACU Phase I Stop: 09/18/21 07:42 Fluticasone Propionate (Fluticasone Nasal [place] 16gm Btl) 1 spray INTRANASAL BID PRN PRN Reason: Nasal Congestion Last Admin: 09/11/21 09:17 Dose: 1 spray Documented by: Glucagon (Glucagon 1 Mg/Ml Inj 1 Ml) 1 mg IM ONCE PRN; Protocol PRN Reason: Adult Acute Hypoglycemia Prot. Heparin Sodium (Porcine) (Heparin 5,000 Unit/Ml Inj 1 Ml) 5,000 unit SUBCUT Q12H [facility] Last Admin: 09/16/21 21:59 Dose: Not Given Documented by: Hydromorphone HCl (Hydromorphone 1 Mg/Ml Inj 1 Ml) 0.25 mg IVP Q10M PRN PRN Reason: Pain level 4-6 PACU Phase I Stop: 09/18/21 07:42 Hydromorphone HCl (Hydromorphone 1 Mg/Ml Inj 1 Ml) 0.5 mg IVP Q10M PRN PRN Reason: Pain level 7-10 PACU Phase I Stop: 09/18/21 07:42 Dextrose (D5w) 500 mls @ 100 mls/hr IV ONCE PRN; Protocol PRN Reason: Adult Acute Hypoglycemia Prot Nitroglycerin/Dextrose (Nitroglycerin Drip) 50 mg in 250 mls @ 0 mls/hr IV .Q0M JANNET; Protocol Sodium Chloride (Sodium Chloride 0.9%) 500 mls @ 999 mls/hr IV .Q31M PRN PRN Reason: HYPOTENSION Insulin Human Lispro (Insulin Lispro 100 Unit/1 Ml) 0 unit SUBCUT WM&BEDTIME [facility]; Protocol Last Admin: 09/17/21 07:23 Dose: Not Given Documented by: Isosorbide Mononitrate (Isosorbide Mononitrate Er 60 Mg Tablet) 60 mg PO DAILY [facility] Last Admin: 09/16/21 08:52 Dose: 60 mg Documented by: Ketorolac Tromethamine (Ketorolac 30 Mg/Ml Inj) 15 mg IVP Q6H PRN PRN Reason: MODERATE PAIN Stop: 09/21/21 22:04 Last Admin: 09/16/21 23:30 Dose: 15 mg Documented by: Lidocaine (Lidocaine 5% Patch) 1 patch TOPICAL [id number] [facility] Last Admin: 09/16/21 19:56 Dose: Not Given Documented by: Lidocaine/Prilocaine (Lidocaine-Prilocaine Cream 5 Gm) 0 applic TOPICAL PRN PRN PRN Reason: use as directed over fistula Magnesium Hydroxide (Magnesium Hydroxide 30 Ml Udc) 30 ml PO DAILY PRN PRN Reason: CONSTIPATION Meperidine HCl (Meperidine 50 Mg/Ml Inj) 12.5 mg IVP Q5M PRN PRN Reason: Shivering PACU Phase I Stop: 09/18/21 07:42 Metoclopramide HCl (Metoclopramide 5 Mg/Ml Sdv 2 Ml) 10 mg IVP Q5M PRN PRN Reason: Nausea unrelieved by Zofran Stop: 09/18/21 07:42 Metoprolol Tartrate (Metoprolol Tartrate 25 Mg Tablet) 25 mg PO BID@0900,2100 [facility] Last Admin: 09/16/21 19:54 Dose: 25 mg Documented by: Morphine Sulfate (Morphine 4 Mg/Ml Sdv 1 Ml) 2 mg IVP Q5M PRN PRN Reason: Pain level 2-5 PACU Phase I Stop: 09/18/21 07:42 Morphine Sulfate (Morphine 4 Mg/Ml Sdv 1 Ml) 2 mg IVP Q2M PRN PRN Reason: Pain level 6-10 PACU Phase I Stop: 09/18/21 07:42 Morphine Sulfate (Morphine 4 Mg/Ml Sdv 1 Ml) 0 mg IVP Q5M PRN PRN Reason: Breakthrough Pain PACU PhaseII Naloxone HCl (Naloxone 0.4 Mg/Ml Sdv) 0.1 mg IVP Q2M PRN PRN Reason: RESPIRATORY RATE < 8/MIN Nitroglycerin (Nitroglycerin 0.4 Mg Sublingual Tablet) 0.4 mg SUBLINGUAL Q5M PRN PRN Reason: Chest Pain Last Admin: 09/09/21 09:06 Dose: 1 applic Documented by: Nitroglycerin (Nitroglycerin 0.4 Mg Sublingual Tablet) 0.4 mg SUBLINGUAL Q5M PRN PRN Reason: CHEST PAIN Ondansetron HCl (Ondansetron 2 Mg/Ml Sdv 2 Ml) 4 mg IVP Q8H PRN PRN Reason: vomiting, or N/V if npo Last Admin: 09/08/21 06:19 Dose: 4 mg Documented by: Ondansetron HCl (Ondansetron 2 Mg/Ml Sdv 2 Ml) 4 mg IVP Q2M PRN PRN Reason: NAUSEA Ondansetron HCl (Ondansetron 2 Mg/Ml Sdv 2 Ml) 4 mg IVP Q5M PRN PRN Reason: Nausea PACU Phase I Stop: 09/18/21 07:42 Ondansetron HCl (Ondansetron 2 Mg/Ml Sdv 2 Ml) 4 mg IVP Q15M PRN PRN Reason: Nausea/Vomiting PACU PHASE II Oxycodone HCl (Oxycodone 5 Mg Ir Tab/Cap) 5 mg PO BID PRN PRN Reason: PAIN Last Admin: 09/17/21 05:31 Dose: 5 mg Documented by: Pantoprazole Sodium (Pantoprazole Dr 40 Mg Tablet) 40 mg PO QAM [facility] Last Admin: 09/17/21 05:31 Dose: 40 mg Documented by: Prednisone (Prednisone 20 Mg Tablet) 40 mg PO DAILY [facility] Last Admin: 09/16/21 08:53 Dose: 40 mg Documented by: Promethazine HCl (Promethazine 25 Mg Tablet) 12.5 mg PO Q6H PRN PRN Reason: Nausea Sacubitril/Valsartan (Sacubitril/Valsartan 24-26 Mg Tablet) 1 each PO BID [facility] Last Admin: 09/12/21 09:51 Dose: 1 each Documented by: Sevelamer Carbonate (Sevelamer 800 Mg Tablet) 1,600 mg PO BID PRN PRN Reason: LARGE SNACKS Sevelamer Carbonate (Sevelamer 800 Mg Tablet) 2,400 mg PO TIDWM [facility] Last Admin: 09/16/21 17:38 Dose: 2,400 mg Documented by: Vitals/I&O/Wt Last Vital Signs Temp 98.1 F 09/18/21 14:28 Pulse 70 09/18/21 14:28 Resp 20 H 09/18/21 14:28 BP 137/73 09/18/21 14:28 Pulse Ox 98 09/18/21 08:18 09/17/21 09/18/21 09/18/21 22:59 06:59 14:59 Intake Total 660 / 1360 240 / 1600 0 / 0 Output Total 0 / 3000 0 / 3000 Balance 660 / -1640 240 / -1400 0 / 0 Physical Exam Narrative: EXAM NARRATIVE: GENERAL: Patient is alert, awake and oriented x3. NECK: No jugular vein distension. HEENT: No cyanosis. No icterus. No pallor. HEART: Regular S1 and S2. No murmur, rub or gallop. ABDOMEN: Soft, nontender and nondistended. Positive bowel sounds. No guarding, rebound or tenderness. Bilateral lower abdominal and groin moderate bruising, no line tenderness Fullness otherwise totally normal abdomen on physical exam. CENTRAL NERVOUS SYSTEM: Grossly nonfocal. EXTREMITIES: Lower extremities without edema bilaterally. Data : 09/18/21 08:36 09/18/21 08:36 A&P Assessment and plan (1) Atypical chest pain: Denies any chest pain. Continue to focus on extra cardiac such as musculoskeletal chest pain. Status: Acute (2) Atherosclerotic heart disease of [place] coronary artery with other forms of angina pectoris: Patient status post PCI of the proximal LAD, plain old balloon angioplasty of the ostium of the diagonal, and PCI of the intermedius artery. From the cardiac standpoint, the patient seems to be stable. We will continue on the current medications. Patient appeared to be stable. Status: Acute (3) Anemia: Her hemoglobin seems to be stable. May continue on the current medications. Less likely to be from retroperitoneal hemorrhage or hematoma since left heart cath was almost 4 to 5 days ago and most likely chance of retroperitoneal bleed is in first 3 to 4 h of the left heart cath. CT is also negative now for retroperitoneal hemorrhage or hematoma. Continue to monitor closely and treatment as per medicine. For now hold aspirin and heparin otherwise continue Plavix, patient platelet may be dysfunctional secondary to uremic nephropathy Status: Acute Qualifiers: Anemia type: unspecified type Qualified Code(s): D64.9 - Anemia, unspecified (4) Hemochromatosis: Patient is being followed by Dr. Colon. Status: Acute Qualifiers: Hemochromatosis type: unspecified Qualified Code(s): E83.119 - Hemochromatosis, unspecified (5) Ischemic cardiomyopathy: Stable. Continue current management Status: Acute (6) Mixed hyperlipidemia: Continue on the current management. Follow-up evaluation as scheduled. Status: Acute (7) ESRD (end stage renal disease): As per medicine and nephrology Status: Acute Additional A&P Information If the patient continues remain stable otherwise, may be discharged home from a cardiac standpoint. We will continue on the current medications. [facility] week by the nurse practitioner. I may see him in the office in 1 month. Attestations Medical Necessity Statement*: Patient require continuation hospitalization for above defined care Coding Level of Care Code Established Pt Acute Drilling Field Professional for Chg Fwd Patient Type Established History Detailed Exam Detailed Medical Decision Making Moderate Complexity Diagnoses Atypical chest pain R07.89 Atherosclerotic heart disease of [place] coronary artery with other forms of angina pectoris I25.118 Anemia D64.9 Anemia type: unspecified type Hemochromatosis E83.119 Hemochromatosis type: unspecified Ischemic cardiomyopathy I25.5 Mixed hyperlipidemia E78.2 ESRD (end stage renal disease) N18.6
[2021-09-18 15:19] LABS: Procalcitonin 0.58 ng/mL (0-0.5)
[2021-09-18 16:17] LABS: Glucose Point of Care 174 mg/dL (70-110)
--- NOTE | 2021-09-18 16:47 | P.PN_ITS ---
Subjective Subjective: Interval history: Seen today. Events from yesterday evening and this morning noted. Patient statuses catheter insertion site started oozing yesterday evening. Pressure was applied sandbag placed and bleeding stopped. Overnight he did not bleed. This morning however he started bleeding again from that site. Dr. Howell general surgery came to evaluate the patient. He advised to continue compression around the area. Hemoglobin also dropped to 7.4. He will be getting 1 unit packed RBC today. Platelets are 90,000. CT has been ordered to rule out retroperitoneal hematoma as patient also has ecchymosis around abdominal area and groin area. Patient was started on Klonopin yesterday. He states he feels better with it compared to the Xanax. He is also agreeable to see psychiatry for further management of his depression and anxiety. Vitals/I&O/Wt Last Vital Signs Temp 98.0 F 09/18/21 16:39 Pulse 81 09/18/21 16:39 Resp 18 09/18/21 16:46 BP 121/84 09/18/21 16:39 Pulse Ox 100 09/18/21 16:46 09/18/21 09/18/21 09/18/21 06:59 14:59 22:59 Intake Total 240 / 1600 236 / 236 236 / 472 Output Total 0 / 3000 Balance 240 / -1400 236 / 236 236 / 472 Physical Exam Narrative: EXAM NARRATIVE: Constitutional: Awake, comfortable seen appearing comfortable sitting up in bed. ENT: Wet mucosa,non icteric, appears comfortable. Lungs: Clear to auscultation bilaterally, no wheezes no rhonchi appreciated. CVS: S1 S2, no murmurs Right-sided dialysis catheter site insertion oozing blood. Sandbag in pressure device in place. Bandage is soaked. And will be seen shortly. Abdo: Soft, nontender, Bilateral lower abdominal and groin moderate bruising, no line tenderness Ext 4: No edema noted. Behavior: Does not appear anxious today. Data : 09/18/21 08:36 09/18/21 08:36 A&P Assessment and plan (1) Atypical chest pain: Status: Acute (2) Atherosclerotic heart disease of [place] coronary artery with other forms of angina pectoris: Status: Acute (3) Anemia: Status: Acute Qualifiers: Anemia type: unspecified type Qualified Code(s): D64.9 - Anemia, unspecified (4) Hemochromatosis: Status: Acute Qualifiers: Hemochromatosis type: unspecified Qualified Code(s): E83.119 - Hemochromatosis, unspecified (5) Ischemic cardiomyopathy: Status: Acute (6) Mixed hyperlipidemia: Status: Acute Additional A&P Information #NSTEMI - resolved #Persistent chest pain - resolved (most likely anxiety related) Patient was admitted for NSTEMI He underwent cardiac catheterization x3. CTA ruled out PE, no signs aortic dissection, cervical lumbar CT scan did show disc bulging and postoperative surgical changes. Patient's chest pain does not improve upon movement. He describes it as if someone is putting her foot on his chest. Patient had a positive stress test and was taken to Otolaryngology Teacher third time. Stress test did show reversible ischemia and FFR showed nonspecific changes. Anxiety is better controlled with Xanax. I treated him with prednisone for potential pericarditis due to his chest pain but it has not helped at all. We will start prednisone at this time. Patient is not a candidate for Ranexa due to his end-stage renal disease. Imdur was increased to [address] Landis and Dr. Gallegos on board Optimization of antianginal medications Pt will go for dialysis today. I have talked to him about getting discharged but patient continues to complain of chest pain which I believe is anxiety driven. He also reports feeling nervous. I have discussed with cardiology and they do not believe pain is cardiac in origin. #Depression and anxiety -Patient will benefit from a psychiatric evaluation. So far he has received Xanax for his anxiety during this hospital stay and he does not come so well with it. He was started on Klonopin yesterday which seems to be helping. He is also on Cymbalta 20 mg every morning which he has been continued on at this time. -He has agreed to see psychiatry at discharge so his medications can be optimized. #Cervical spine radiculopathy? ?MRI C-spine done this morning. Report pending. Orthopedic surgery was consulted. Will follow recommendations Patient's pain that is deep in his chest does also radiated to both arms at some point and he also has numbness tingling in his arms. He will be following outpatient with Dr. Esquivel's office. ?Severe spinal canal stenosis at lumbar region. He will follow up outpatient with Dr. Esquivel for that as well. #End-stage renal disease Tuesday, #Thrombocytopenia #Dialysis catheter insertion site oozing #Acute blood loss anemia secondary to above Hemoglobin at goal Will hold azathioprine. Unable to be dialyzed today due to fistula malfunction. Tunneled catheter was placed 09/17. Patient has been bleeding from incision site. Dr. Howell is seen the patient and advised to do sandbag and pressure application. I will stop aspirin and heparin. Cardiology okay with stopping his aspirin at this time. Due to recent stent Plavix cannot be stopped. Once patient stops bleeding for 24 hours and hemoglobin is stable he can be discharged to follow-up with cardiology as an outpatient. CTA pending to rule out retroperitoneal bleed at this time as well. I have requested cardiology to re-see the patient. Will await further recommendations. Renal dialysis diet DVT prophylaxis: Mechanical compression device. We will stop heparin due to active bleed. Full code Patient has refused LifeVest, AICD evaluation as per Dr. Landis after discharge Attestations Medical Necessity Statement*: Greater than 24-hour stay at this point due to active bleeding. Time Spent in Patient Care: Greater than 35 minutes (>than 50% of time spent in counselling and/or direct pt care on unit) . Coding Level of Care Code Acute Fiscal Assistant for Ger Fwjaycee Diagnoses Atypical chest pain R07.89 Atherosclerotic heart disease of [place] coronary artery with other forms of angina pectoris I25.118 Anemia D64.9 Anemia type: unspecified type Hemochromatosis E83.119 Hemochromatosis type: unspecified Ischemic cardiomyopathy I25.5 Mixed hyperlipidemia E78.2
[2021-09-18 19:35] LABS: Basophils % 0.2 %; Hematocrit 26.4 % (42.0-52.0); Hemoglobin 8.3 g/dL (11.7-16.6); Lymphocytes # 0.1 10^3/uL (0.8-4.8); Mean Corpuscular HGB Conc 31.4 g/dL (30.0-36.0); Mean Corpuscular Volume 95.3 fl (80-94); Mean Platelet Volume 10.6 fL (7.4-10.4); Monocytes # 0.4 10^3/uL (0.2-0.9); Monocytes % 3.8 %; Neutrophils # 9.62 10^3/uL (1.8-7.7); Nucleated Red Blood Cells % 0 %; Platelet Count 97 10^3/cmm (130-400); Red Blood Count 2.77 10^6/uL (4.1-5.3); Red Cell Distribution Width 17.1 % (12.1-15.1); White Blood Count 10.3 10^3/uL (4.0-10.0)
--- NOTE | 2021-09-18 19:44 | PC.NURSE ---
Received report from PORFIRIO Gallardo. Patient resting in bed watching tv. Dressing to tunneled catheter appears to have stopped bleeding presently. Observed only dried blood at this time. Site does have some bruising. Patient denies pain to site. Discussed plan for tonight. Patient verbalized complete understanding. No distress observed.
[2021-09-18 20:18] LABS: Glucose Point of Care 180 mg/dL (70-110)
[2021-09-18] MEDS: ketorolac 30 mg/mL INJ 15 MG IVP (20:22)
[2021-09-18] MEDS: clopidogrel 75 mg Tablet PO (20:23)
[2021-09-18] MEDS: atorvastatin 40 mg Tablet PO (20:23)
[2021-09-19] VITALS (13 sets, daily range): BP systolic 133–154; BP diastolic 70–86; PULSE 68–82; RESP 16–20; TEMP 36.4–36.7; O2SAT 94–100
[2021-09-19] MEDS: ipratropium-albuterol 3 mL Neb INHALATION ×2 (02:53→14:40)
[2021-09-19] MEDS: duloxetine 20 mg Capsule PO (05:09)
[2021-09-19] MEDS: oxyCODONE 5 mg IR Tab/Cap PO ×2 (05:09→17:57)
[2021-09-19] MEDS: pantoprazole DR 40 mg Tablet PO (05:09)
--- NOTE | 2021-09-19 05:23 | PC.NURSE ---
Removed pressure dressing from right upper chest. No bleeding or hematoma formation observed. Cleaned site with chloraprep and alcohol using aseptic procedure. Covered with island dressing and bio-occlusive. Patient tolerated well. Bruising observed to site. Patient denies pain to this area. Will continue to monitor.
[2021-09-19 06:14] LABS: Basophils % 0.2 %; Hematocrit 27.5 % (42.0-52.0); Hemoglobin 8.8 g/dL (11.7-16.6); Lymphocytes # 0.2 10^3/uL (0.8-4.8); Lymphocytes % 2.2 %; Mean Corpuscular Hemoglobin 30.7 pg (28.0-34.0); Mean Corpuscular Volume 95.8 fl (80-94); Mean Platelet Volume 10.7 fL (7.4-10.4); Monocytes # 0.6 10^3/uL (0.2-0.9); Monocytes % 7.5 %; Neutrophils # 7.33 10^3/uL (1.8-7.7); Neutrophils % 87.7 %; Nucleated Red Blood Cells % 0.2 %; Platelet Count 93 10^3/cmm (130-400); Red Blood Count 2.87 10^6/uL (4.1-5.3); Red Cell Distribution Width 17.7 % (12.1-15.1); White Blood Count 8.4 10^3/uL (4.0-10.0)
[2021-09-19 06:29] LABS: Anion Gap 24.5 (5-19); Blood Urea Nitrogen 76 mg/dL (6-20); Calcium 7.4 mg/dL (8.5-10.5); Carbon Dioxide 21 mmol/L (22-29); Chloride 91 mmol/L (98-107); Glomerular Filtration Rate 6.5 mL/min (90-130); Glucose 120 mg/dL (65-115); Osmolality Calculated 298 mOsm/kg (285-295); Potassium 4.5 mmol/L (3.5-5.1); Sodium 132 mmol/L (136-145)
--- NOTE | 2021-09-19 06:35 | PC.NURSE ---
Shift Note Frequent safety and comfort rounds continue. Orders and/or nursing care completed as indicated. Patient monitored for response to intervention and treatment(s). Education provided includes Aline. Patient verbalized complete understanding stating, I am glad doctor starting me on something for depression. I feel like it is beginning to help. Dressing to right upper chest remains c,d,i presently. No continued s/s of bleeding observed. Patient does express concern related to continuing chest pain. Discussed with patient procedures that have been done. Patient expressed understanding. No other distresses observed. Will continue to monitor.
[2021-09-19 06:43] LABS: Glucose Point of Care 138 mg/dL (70-110)
[2021-09-19] MEDS: predniSONE 20 mg Tablet 40 MG PO (07:48)
[2021-09-19] MEDS: sevelamer 800 mg Tablet 2400 MG PO ×2 (07:48→17:20)
[2021-09-19] MEDS: isosorbide mononitrate ER 60 mg Tablet PO (07:49)
[2021-09-19] MEDS: metoprolol tartrate 25 mg Tablet PO (07:49)
[2021-09-19] MEDS: sacubitril/valsartan 24-26 mg Tablet 1 EACH PO ×2 (07:49→17:57)
[2021-09-19] MEDS: CLONazepam 0.5 mg Tablet PO ×2 (07:49→17:57)
--- NOTE | 2021-09-19 08:03 | PM.PN ---
Subjective Subjective: Interval history: Patient has stopped bleeding, his hemoglobin is up to 8.8 Vitals/I&O/Wt Last Vital Signs Temp 97.1 F L 09/18/21 19:02 Pulse 68 09/19/21 04:44 Resp 20 H 09/19/21 05:09 BP 133/78 09/19/21 03:00 Pulse Ox 94 09/19/21 03:00 09/18/21 09/19/21 09/19/21 22:59 06:59 14:59 Intake Total 656 / 892 Balance 656 / 892 Physical Exam Narrative: EXAM NARRATIVE: Right chest: Tunneled IJ catheter in place, no significant cellulitis or hematoma, has ecchymosis Data : 09/19/21 04:16 09/19/21 04:16 A&P Assessment and plan (1) S/P hemodialysis catheter insertion: 51-year-old male status post bleeding from the catheter entry site. Patient was on aspirin heparin and Plavix and the aspirin heparin has been discontinued. He is no longer bleeding. No significant hematoma requiring evacuation. Patient should build to go home from a surgical standpoint, I will see him back in clinic for removal of the IJ catheter once the AV fistula has been declotted in [place] Status: Acute Attestations Medical Necessity Statement*: Dialysis catheter insertion Coding Level of Care Code Acute Television Tube Inspector for Gabyg Fwd Diagnoses S/P hemodialysis catheter insertion Z99.2
--- NOTE | 2021-09-19 08:30 | P.PN_ITS ---
Subjective Subjective: Interval history: seen during dialysis reports blood in stool yesterday, had CT abdomen, normal BM reports colonoscopy 1 year ago Medications: Reviewed: Yes Vitals/I&O/Wt Last Vital Signs Temp 97.1 F L 09/18/21 19:02 Pulse 68 09/19/21 04:44 Resp 20 H 09/19/21 05:09 BP 133/78 09/19/21 03:00 Pulse Ox 94 09/19/21 03:00 09/18/21 09/19/21 09/19/21 22:59 06:59 14:59 Intake Total 656 / 892 Balance 656 / 892 Physical Exam Const: COMMON NORMALS: no acute distress GENERAL APPEARANCE: cooperative Extremity: GENERAL: No edema OTHER: Left forearm AVF - + thrill per orthotic and prosthetic technician RN pulled clots from AVF at last attempt at cannulation Data : 09/19/21 04:16 09/19/21 04:16 A&P Additional A&P Information Patient seen and examined via telemedicine, with the assistance of the bedside RN 1. ESRD. Unable to use AVF. Permcath bleeding from exit site resolved. Hb improved s/p transfusion 2. Abnormal CT sigmoid colon, blood in stool - per primary service 3. Anemia, epogen at HD 4. Mild hyponatremia, likely volume related Plan: HD today, next HD Tuesday09/21/21. Outpatient dialysis unit will arrange for fistulogram AVF. Attestations Medical Necessity Statement*: per primary service Time Spent in Patient Care: 16 - 35 minutes Coding Level of Care Code Acute Restaurant Kitchen And Service Manager for Ger Godfrey
[2021-09-19] MEDS: heparin, porcine 1,000 unit/mL INJ 10 mL 10000 UNIT HE (14:36)
[2021-09-19] MEDS: cyclobenzaprine 10 mg Tablet PO (15:10)
--- NOTE | 2021-09-19 16:34 | PM.TDS ---
Transfer Summary Providers Date of Admission: 09/07/21 19:28 Date of Discharge: 09/19/21 Attending Provider at Admission: Sailaja Carvajal MD Attending Provider at Transfer: Priscila Soares MD Primary Care Provider: Michael Eubanks DO Anticipated Date of Transfer: Anticipated date of transfer: 09/19/21 Receiving Facility & Provider: Receiving Provider: [Dr. John] Receiving facility: [[facility]] Diagnoses at Discharge Discharge Diagnosis (1) S/P hemodialysis catheter insertion: Status: Acute (2) Atypical chest pain: Status: Acute (3) Chronic renal failure: Status: Acute (4) History of intravascular stent placement: Status: Acute (5) Atherosclerotic heart disease of [place] coronary artery without angina pectoris: Status: Acute (6) Empyema: Status: Acute (7) Dialysis AV fistula malfunction: Status: Acute Reason for Visit Reason for Visit: CP Hospital Course Hospital Course Patient was admitted for evaluation of chest pain, he was diagnosed with NSTEMI at the time of admission, for his persistent chest pain next day he went for the cardiac catheterization, and his first angiogram he received a stent in his proximal LAD however his chest pain persisted and next day he went for another angiogram and received a stent in intermedius artery, his chest pain did not resolve, CTA was requested which ruled out PE, no signs of aortic dissection, cervical and lumbar spine CT scan did show disc bulging and postoperative/surgical changes, patient chest pain does improve on leaning forward, he is describing his pain as someone's putting feet on his chest, patient was taken to the cardiac [facility] third time after positive stress test, stress test did show reversible ischemia in RCA and circumflex territory however during angiogram FFR did show nonspecific changes, patient was started on therapeutic dose of steroids for 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 At home he does take prednisone 10 mg along azathioprine. In total he went to the cardiac [facility] 3 times :-stent in proximal LAD and intermedius, FFR of right circumflex and right coronary nonspecific. Cardiac cath reports are pending. He did get dialyzed after his contrast studies and on Tuesday schedule. Dr. Landis was following along. Dr. Landis will see him in his clinic for AICD evaluation, he has refused LifeVest in the past. updated. Not a candidate of Ranexa secondary to end-stage renal disease as per Dr. Landis. He has increased his Imdur to 60 mg daily. Course: Patient admitted for NSTEMI underwent cardiac catheterization x3 CTA ruled out PE no signs aortic dissection, cervical lumbar CT scan did show disc bulge and postoperative surgical changes from prior. Patient also had a stress test and was taken to [facility] third time stress test did not show reversible ischemia and FFR showed nonspecific changes. He was also treated for possible pericarditis with steroids 40 daily which were later stopped as the pain did not go away. Have discussed with cardiology on multiple occasions that his chest pain is not cardiac in origin at this point. He was also seen by orthopedic surgery for concern of cervical spine radiculopathy. He has been recommended to follow-up outpatient with them. He does have severe spinal canal stenosis at lumbar region but he is not complaining of any pain associated with that. Patient is chest pain can possibly be pleuritic in origin as sometimes he does complain of pain when he takes a deep breath or when he tries to move. Patient also has been struggling with depression and anxiety. At first we were giving him Xanax during hospital stay which did not seem to help but after starting the Klonopin he seems to be doing better. He will benefit from a psych eval as an outpatient at discharge. Patient does have end-stage renal disease and is on dialysis Tuesday. Patient's fistula stopped functioning on 09/16. Tunneled catheter was placed 09/17. He was subsequently dialyzed. He did develop bleeding from catheter insertion site on 09/17. He was seen by surgery and advised to apply pressure to the area with a sandbag. Heparin DVT prophylaxis was stopped. After discussing with cardiology aspirin was also stopped. We still have to continue Plavix however due to his recent stent. Plan was to discharge patient once bleeding stopped and his hemoglobin was stable for 24 hours. He did get 1 unit of blood during this time. Hemoglobin is stable today and going from 8.1-8.8 today. He did drop to 7 however when the catheter site was bleeding. Patient will require a fistulogram and vascular surgery consult to have the fistula looked at. In the meantime he can be dialyzed with the tunneled catheter. CT abdomen pelvis was done and retroperitoneal hematoma was ruled out. However layering left pleural effusion was found with enhancement of his renal and parietal pleura with concern of empyema. I discussed with radiology at length over the phone and also [facility] [place] pulmonology over the phone. Both have recommended that patient have a thoracentesis and fluid sent for cytology and culture. We currently do not have anybody here who can do a thoracentesis today and therefore patient will be transferred to higher level of care. Discussed with hospitalist Dr. John at [facility] who has accepted patient for transfer. Off note patient has been offered a LifeVest which he has declined at this time. Patient to follow-up with cardiology outpatient for AICD placement evaluation. updated over the phone. CT chest abd pelvis 09/18 IMPRESSION: 1. No retroperitoneal hematoma. 2. Small layering LEFT pleural effusion with enhancement of the visceral and parietal pleura. Small empyema should be considered. There is adjacent atelectasis LEFT lower lobe. 3. Marked wall thickening involving the sigmoid. There are numerous adjacent diverticula. The soft tissue thickening may all be related to chronic episodes of diverticulitis. Underlying neoplasm not excluded on this appearance. 4. Small soft tissue mass may be a lymph node in the deep RIGHT inguinal region. Alternatively a very small hematoma. 5. No free air. 6. Severe bilateral renal atrophy. 7. 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 Echo Limited 09/10/2021 This is a limited echocardiogram performed to assess LV systolic function and rule out sifnificant pericardial effusion Grsossly LV systolic function is severely reduced with EF of 20- 25%. Regional wall motion abnormalities cannot be assessed because of poor visualization. Trivial pericardial effusion noted. Prior echocardiogram from 09/08/2021, no significant changes are seen. Physical Exam Narrative: EXAM NARRATIVE: Constitutional: Awake, comfortable seen appearing comfortable sitting up in bed. Appears slightly anxious knowing that he might be going to [place] as a transfer. ENT: Wet mucosa,non icteric, appears comfortable. Lungs: Clear to auscultation bilaterally, no wheezes no rhonchi appreciated. CVS: S1 S2, no murmurs Right-sided dialysis catheter site insertion site no longer oozing blood. Dressing appears clean and intact. He does have some ecchymosis around the area. Abdo: Soft, nontender, Bilateral lower abdominal and groin moderate bruising, no line tenderness. Ext 4: No edema noted. Behavior: Appears slightly anxious. TS Data Data Completed and Pending: Completed Studies During Hospitalization Category Date Time Status CT angio abdomen pelvis 87969 Stat Cat Scan 09/18/21 12:[address] angio chest PE protcl [id number] Rout ine Cat Scan 09/10/21 08:[address] cervical spin wo con* [id number] Rout ine Cat Scan 09/10/21 14:[address] lumbar spine w o con* [id number] Routi ne Cat Scan 09/10/21 14:25 Completed Sestamibi Stress Test Request Routi ne Exams 09/10/21 14:27 Completed XR cervical spine 4-5V 46469 Routin e Exams 09/14/21 13:51 Completed XR chest 1V melva ble 31899 Stat Exams 09/07/21 15:58 Completed MR cervical spin wo con* [id number] Rout ine MRI 09/15/21 10:15 Completed NM dipesh perf SPECT r/s* 04235 Routin e Nuc Med 09/11/21 Completed CV. echo limited [id number] Routine Ultrasound 09/08/21 23:20 Completed CV. echo limited [id number] Stat Ultrasound 09/09/21 10:24 Completed Pending at discharge Category Date Time Status [employer] request for service Routin e Exams 09/08/21 09:51 Taken [employer] request for service Routin e Exams 09/09/21 09:31 Taken [employer] request for service Routin e Exams 09/12/21 10:13 Taken Labs from last 24 hours 09/19/21 09/19/21 09/19/21 06:26 04:16 04:16 WBC 8.4 RBC 2.87 L Hgb 8.8 L Hct 27.5 L MCV 95.8 H MCH 30.7 MCHC 32.0 RDW 17.7 H Plt Count 93 L MPV 10.7 H Neut % (Auto) 87.7 Lymph % (Auto) 2.2 [place] % (Auto) 7.5 Eos % (Auto) 0.0 Baso % (Auto) 0.2 Neut # (Auto) 7.33 Lymph # (Auto) 0.2 L [place] # (Auto) 0.6 Eos # (Auto) 0.0 Baso # (Auto) 0.0 Nucleated RBC % (a uto) 0.2 Nucleated RBCs # 0.0 Sodium 132 L Potassium 4.5 Chloride 91 L Carbon Dioxide 21 L Anion Gap 24.5 H BUN 76 H Creatinine 8.7 H* GFR Calculation 6.5 L Glucose 120 H POC Glucose 138 H Calculated Osmolal ity 298 H Calcium 7.4 L Magnesium 2.0 Crossmatch 09/18/21 09/18/21 09/18/21 20:10 18:50 11:08 WBC 10.3 H RBC 2.77 L Hgb 8.3 L Hct 26.4 L MCV 95.3 H MCH 30.0 MCHC 31.4 RDW 17.1 H Plt Count 97 L MPV 10.6 H Neut % (Auto) 93.0 Lymph % (Auto) 1.0 [place] % (Auto) 3.8 Eos % (Auto) 0.0 Baso % (Auto) 0.2 Neut # (Auto) 9.62 H Lymph # (Auto) 0.1 L [place] # (Auto) 0.4 Eos # (Auto) 0.0 Baso # (Auto) 0.0 Nucleated RBC % (a uto) 0 Nucleated RBCs # 0.0 Sodium Potassium Chloride Carbon Dioxide Anion Gap BUN Creatinine GFR Calculation Glucose POC Glucose 180 H Calculated Osmolal ity Calcium Magnesium Crossmatch See Detail Vitals: Last Vital Signs Temp 97.5 F L 09/19/21 16:21 Pulse 76 09/19/21 16:21 Resp 20 H 09/19/21 16:21 BP 154/86 09/19/21 16:21 Pulse Ox 100 09/19/21 16:21 TS Medications Medications Home Medications nitroglycerin 0.4 mg sublingual tablet 0.4 mg SUBLINGUAL Q5M PRN 10/31/19 [History Confirmed 09/07/21] promethazine 12.5 mg tablet 12.5 mg PO Q6H PRN 04/29/20 [History Confirmed 09/07/21] lidocaine-prilocaine See Rx Instructions .ROUTE .COMPLEX 05/24/20 [History Confirmed 09/07/21] albuterol sulfate 90 mcg/actuation aerosol inhaler 2 puff INHALATION QID PRN 30 Days #8.5 g 12/25/20 [Rx Confirmed 09/07/21] fluticasone propionate 50 mcg/actuation nasal spray,suspension 1 spray INTRANASAL BID PRN ml 03/10/21 [History Confirmed 09/07/21] pregabalin 75 mg capsule 75 mg PO BID 03/10/21 [History Confirmed 09/07/21] sevelamer HCl See Rx Instructions .ROUTE .COMPLEX 05/18/21 [History Confirmed 09/07/21] duloxetine 20 mg PO QAM 07/06/21 [History Confirmed 09/07/21] prednisone 10 mg PO QAM 07/06/21 [History Confirmed 09/07/21] Entresto 1 tab PO BID #90 tab 07/10/21 [Rx Confirmed 09/07/21] oxycodone 5 mg PO BID PRN 09/07/21 [History Confirmed 09/07/21] pantoprazole 40 mg PO QAM 09/07/21 [History Confirmed 09/07/21] aspirin 81 mg PO QAM #30 tab 09/11/21 [Rx Confirmed 09/07/21] atorvastatin 40 mg PO BEDTIME #90 tab 09/11/21 [Rx Confirmed 09/07/21] clopidogrel 75 mg PO BEDTIME #30 tab 09/11/21 [Rx Confirmed 09/07/21] isosorbide mononitrate 60 mg PO DAILY #90 tab 09/11/21 [Rx] metoprolol tartrate 25 mg PO BIDWMEAL #60 tab 09/11/21 [Rx Confirmed 09/07/21] azathioprine 50 mg tablet See Rx Instructions .ROUTE .COMPLEX #30 tab 09/14/21 [Rx] Active Medications Acetaminophen (Acetaminophen 325 Mg Tablet) 650 mg PO Q6H PRN PRN Reason: Mild/Mod Pain Or Temp >/= 101 Acetaminophen (Acetaminophen 325 Mg Tablet) 650 mg PO Q6H PRN PRN Reason: MILD PAIN Al Hydrox/Mg Hydrox/Simethicone (Rfee-Sjx-Erqcfkbtv-Maninder 30 Ml Udc) 30 ml PO Q15M PRN PRN Reason: INDIGESTION Albuterol Sulfate (Albuterol 8 Gm Mdi) 2 puff INHALATION QID.RESPIRATORY PRN PRN Reason: shortness of breath or wheezing Albuterol/Ipratropium (Ipratropium-Albuterol 3 Ml Neb) 3 ml INHALATION Q6H.RESPIRATORY JANNET Last Admin: 09/19/21 14:40 Dose: 3 ml Documented by: Aspirin (Aspirin 81 Mg Ec Tablet) 81 mg PO QAM JANNET Last Admin: 09/18/21 05:40 Dose: 81 mg Documented by: Atorvastatin Calcium (Atorvastatin 40 Mg Tablet) 40 mg PO BEDTIME JANNET Last Admin: 09/18/21 20:23 Dose: 40 mg Documented by: Atropine Sulfate (Atropine 1 Mg/Ml Sdv 1 Ml) 0.5 mg IVP PRN PRN PRN Reason: Symptomatic bradycardia Azathioprine (Azathioprine 50 Mg Tablet) 25 mg PO 0800 [facility] Last Admin: 09/19/21 09:52 Dose: 25 mg Documented by: Clonazepam (Clonazepam 0.5 Mg Tablet) 0.5 mg PO BID [facility] Last Admin: 09/19/21 07:49 Dose: 0.5 mg Documented by: Clopidogrel Bisulfate (Clopidogrel 75 Mg Tablet) 75 mg PO BEDTIME [facility] Last Admin: 09/18/21 20:23 Dose: 75 mg Documented by: Cyclobenzaprine HCl (Cyclobenzaprine 10 Mg Tablet) 10 mg PO TID PRN PRN Reason: MUSCLE SPASMS Last Admin: 09/19/21 15:10 Dose: 10 mg Documented by: Dextrose (Dextrose 50% Syringe 50 Ml) 25 ml IVP ONCE PRN; Protocol PRN Reason: hypoglycemia protocol Dextrose (Dextrose 50% Syringe 50 Ml) 50 ml IVP PRN PRN; Protocol PRN Reason: hypoglycemia protocol Duloxetine HCl (Duloxetine 20 Mg Capsule) 20 mg PO QAM [facility] Last Admin: 09/19/21 05:09 Dose: 20 mg Documented by: Fluticasone Propionate (Fluticasone Nasal [place] 16gm Btl) 1 spray INTRANASAL BID PRN PRN Reason: Nasal Congestion Last Admin: 09/11/21 09:17 Dose: 1 spray Documented by: Glucagon (Glucagon 1 Mg/Ml Inj 1 Ml) 1 mg IM ONCE PRN; Protocol PRN Reason: Adult Acute Hypoglycemia Prot. Dextrose (D5w) 500 mls @ 100 mls/hr IV ONCE PRN; Protocol PRN Reason: Adult Acute Hypoglycemia Prot Insulin Human Lispro (Insulin Lispro 100 Unit/1 Ml) 0 unit SUBCUT WM&BEDTIME [facility]; Protocol Last Admin: 09/19/21 15:12 Dose: Not Given Documented by: Isosorbide Mononitrate (Isosorbide Mononitrate Er 60 Mg Tablet) 60 mg PO DAILY [facility] Last Admin: 09/19/21 07:49 Dose: 60 mg Documented by: Ketorolac Tromethamine (Ketorolac 30 Mg/Ml Inj) 15 mg IVP Q6H PRN PRN Reason: MODERATE PAIN Stop: 09/21/21 22:04 Last Admin: 09/18/21 20:22 Dose: 15 mg Documented by: Lidocaine (Lidocaine 5% Patch) 1 patch TOPICAL [id number] [facility] Last Admin: 09/19/21 09:30 Dose: Not Given Documented by: Lidocaine/Prilocaine (Lidocaine-Prilocaine Cream 5 Gm) 0 applic TOPICAL PRN PRN PRN Reason: use as directed over fistula Metoprolol Tartrate (Metoprolol Tartrate 25 Mg Tablet) 25 mg PO BID@0900,2100 [facility] Last Admin: 09/19/21 07:49 Dose: 25 mg Documented by: Oxycodone HCl (Oxycodone 5 Mg Ir Tab/Cap) 5 mg PO BID PRN PRN Reason: PAIN Last Admin: 09/19/21 05:09 Dose: 5 mg Documented by: Pantoprazole Sodium (Pantoprazole Dr 40 Mg Tablet) 40 mg PO QAM [facility] Last Admin: 09/19/21 05:09 Dose: 40 mg Documented by: Sacubitril/Valsartan (Sacubitril/Valsartan 24-26 Mg Tablet) 1 each PO BID [facility] Last Admin: 09/19/21 07:49 Dose: 1 each Documented by: Sevelamer Carbonate (Sevelamer 800 Mg Tablet) 1,600 mg PO BID PRN PRN Reason: LARGE SNACKS Sevelamer Carbonate (Sevelamer 800 Mg Tablet) 2,400 mg PO TIDWM [facility] Last Admin: 09/19/21 15:12 Dose: Not Given Documented by: Discharge Plan Discharge Patient Disposition: Home Condition: Stable Prescriptions: New isosorbide mononitrate 60 mg tablet extended release 24 hr 60 mg PO DAILY Qty: 90 RF: 1 Continued promethazine 12.5 mg tablet 12.5 mg PO Q6H PRN (Reason: Nausea) RF: 0 albuterol sulfate 90 mcg/actuation HFA aerosol inhaler 2 puff inhalation QID PRN (Reason: shortness of breath or wheezing) 30 Days Qty: 8.5 RF: 2 nitroglycerin [Nitrostat] 0.4 mg tablet, sublingual 0.4 mg SUBLINGUAL Q5M PRN (Reason: Chest Pain) RF: 0 pregabalin [Lyrica] 75 mg capsule 75 mg PO BID RF: 0 fluticasone propionate [Flonase Allergy Relief] 50 mcg/actuation spray,suspension 1 spray intranasal BID PRN (Reason: Nasal Congestion) RF: 0 lidocaine-prilocaine 2.5-2.5 % cream See Rx Instructions .ROUTE .COMPLEX RF: 0 sevelamer HCl 800 mg tablet See Rx Instructions .ROUTE .COMPLEX RF: 0 pantoprazole 40 mg tablet,delayed release (DR/EC) 40 mg PO QAM RF: 0 oxycodone 5 mg tablet 5 mg PO BID PRN (Reason: Pain) RF: 0 atorvastatin 40 mg Tablet 40 mg PO BEDTIME Qty: 90 RF: 3 aspirin 81 mg tablet,delayed release (DR/EC) 81 mg PO QAM Qty: 30 RF: 3 prednisone 10 mg tablet 10 mg PO QAM RF: 0 duloxetine 20 mg capsule,delayed release(DR/EC) 20 mg PO QAM RF: 0 Entresto 24-26 mg Tablet 1 tab PO BID Qty: 90 RF: 0 Changed clopidogrel 75 mg tablet 75 mg PO BEDTIME Qty: 30 RF: 3 metoprolol tartrate 50 mg tablet 25 mg PO BIDWMEAL Qty: 60 RF: 2 Discontinued isosorbide mononitrate 30 mg tablet extended release 24 hr 30 mg PO BEDTIME RF: 0 No Action azathioprine 50 mg tablet See Rx Instructions .ROUTE .COMPLEX Qty: 30 RF: 0 Referrals: Luis Esquivel DO [Physician] - 2 weeks (Follow up 1-2 weeks) Isauro Landis MD [Physician] - 4-7 days (Please keep your appointment with Dr. Landis on at 2:00P.M. If you have any questions or need to reschedule. Please call ) Vaibhav Gallegos M.D [Physician] - 1 week Lb Howell MD [Physician] - (PRN ... follow up with [facility] for dialysis catheter check) Michael Eubanks DO [Primary Care Provider] - 1 week (Please follow-up with Dr. Euabnks on at 3:30P.M. If you have any questionsor need to reschedule. Please call ) Discharge Diet: Cardiac Discharge Activity: Increase activity as tolerated Patient Instructions: Isosorbide Mononitrate (By mouth) (Imdur, Imdur ER, Ismo), Angina (DC), Coronary Angioplasty (DC), Opioid Safety Transfer Attestations Time Spent in Transfer Care*: greater than 30 min Specific Discharge Activities: Specific discharge activities: educating patient, educating and/or supporting family/caregiver, discussing with pcp/other providers, documenting/other paperwork and evaluating patient/reviewing data Status at Transfer: Cognitive status at transfer: cognitively intact, Behavioral status at transfer: cooperative and independent in ADL's, Quality Metrics Clinical Quality Measures: During this hospital stay, did patient experience: None Coding Level of Care Code Acute Accounts Supervisor for Chg Fwd Diagnoses S/P hemodialysis catheter insertion Z99.2 Atypical chest pain R07.89 Chronic renal failure N18.9 History of intravascular stent placement Z95.828 Atherosclerotic heart disease of [place] coronary artery without angina pectoris I25.10 Empyema J86.9 Dialysis AV fistula malfunction T82.590A
[2021-09-19 17:31] LABS: Glucose Point of Care 183 mg/dL (70-110)
[2021-09-19] MEDS: insulin lispro 100 unit/1 mL SUBCUT (17:58)
--- NOTE | 2021-09-19 18:55 | PC.NURSE ---
report phoned to [facility] at 1850.
--- NOTE | 2021-09-19 19:54 | PC.NURSE ---
Patient taken by [facility] ambulance to [facility] for continued medical care. Patient expressed complete understanding related to need for transfer. Patient denies needs presently and pain is controlled 01/31.
--- NOTE | 2021-09-20 20:00 | PC.HD ---
Pt's fistula with thrill and pulse palpable, not being used due to clots being aspirated the last time it was cannulated. HD cath intact. Report rec'd that dressing was changed this morning due to pt bleeding from site all night and dressing saturated. Dressing remained c/d/i throughout treatment without evidence of bleeding so left dressing unchanged.
== END 2021-09-19 19:56 | disposition short-term general hospital (02) | DRG 246 ==
LOC: ER 15:58 → CSU 20:50
PROVIDERS: Hospitalist; Internal Medicine; Internal Medicine Cardiovascular Disease; Internal Medicine Nephrology; Surgery; Admitting Provider Student in an Organized Health Care Education/Training Program; Emergency Provider Emergency Medicine; PCP Internal Medicine; Visit Provider Internal Medicine
PROC: 027034Z Dilation of Coronary Artery, One Artery with Drug-eluting Intraluminal Device, Percutaneous Approach (ICD-10-PCS; principal; 2021-09-08 16:30)
PROC: B211YZZ Fluoroscopy of Multiple Coronary Arteries using Other Contrast (ICD-10-PCS; principal; 2021-09-12 10:30)
PROC: 0JH63XZ Insertion of Tunneled Vascular Access Device into Chest Subcutaneous Tissue and Fascia, Percutaneous Approach (ICD-10-PCS; principal; 2021-09-17 08:00)
DX: I21.4 Non-ST elevation (NSTEMI) myocardial infarction (principal); J86.9 Pyothorax without fistula; I50.43 Acute on chronic combined systolic (congestive) and diastolic (congestive) heart failure; N18.6 End stage renal disease; D62 Acute posthemorrhagic anemia; T82.590A Other mechanical complication of surgically created arteriovenous fistula, initial encounter; I13.2 Hypertensive heart and chronic kidney disease with heart failure and with stage 5 chronic kidney disease, or end stage renal disease; J84.03 Idiopathic pulmonary hemosiderosis; I31.9 Disease of pericardium, unspecified; I25.110 Atherosclerotic heart disease of native coronary artery with unstable angina pectoris; D69.6 Thrombocytopenia, unspecified; Y73.1 Therapeutic (nonsurgical) and rehabilitative gastroenterology and urology devices associated with adverse incidents; F41.8 Other specified anxiety disorders; E11.22 Type 2 diabetes mellitus with diabetic chronic kidney disease; Z99.2 Dependence on renal dialysis; E78.2 Mixed hyperlipidemia; I25.5 Ischemic cardiomyopathy; J44.9 Chronic obstructive pulmonary disease, unspecified; Z86.718 Personal history of other venous thrombosis and embolism; I27.20 Pulmonary hypertension, unspecified; Z87.891 Personal history of nicotine dependence; E83.119 Hemochromatosis, unspecified; D63.1 Anemia in chronic kidney disease; Z79.52 Long term (current) use of systemic steroids; Z79.51 Long term (current) use of inhaled steroids; Z79.82 Long term (current) use of aspirin; M50.11 Cervical disc disorder with radiculopathy, high cervical region; Z98.1 Arthrodesis status
CPT/HCPCS: 36415; 36416; 36430; 71045; 71275; 72050; 72125; 72131; 72141; 74174; 76000; 77001; 78452; 80048; 80053; 82728; 82962; 83540; 83550; 83690; 83735; 83880; 84145; 84484; 85018; 85025; 85347; 85730; 86850; 86900; 86920; 87426; 92921; 93005; 93017; 93308; 93452; 93571; 93572; 94640; 96365; 96366; 96367; 96372; 96375; 97161; 99285; A9500; C1725; C1750; C1769; C1874; C1887; C1894; C9600; J0690; J1200; J1644; J1815; J1885; J2250; J2270; J2405; J2704; J2785; J2930; J3010; J3480; J3490; J7030; J7500; J7512; P9016; Q3014; Q4081; Q9967

== ENCOUNTER 2022-04-08 10:34 | Outpatient (CLI) | payer MEDICARE, MEDICAID, SELFPAY ==
[2022-04-08 11:04] LABS: Basophils # 0.1 10^3/uL (0.0-0.1); Basophils % 0.6 %; Eosinophils % 0.3 %; Hematocrit 35.6 % (42.0-52.0); Hemoglobin 11.9 g/dL (11.7-16.6); Lymphocytes # 0.8 10^3/uL (0.8-4.8); Mean Corpuscular HGB Conc 33.4 g/dL (30.0-36.0); Mean Corpuscular Hemoglobin 32.8 pg (28.0-34.0); Mean Corpuscular Volume 98.1 fl (80-94); Mean Platelet Volume 9.5 fL (7.4-10.4); Monocytes # 0.9 10^3/uL (0.2-0.9); Monocytes % 9.7 %; Neutrophils # 7.76 10^3/uL (1.8-7.7); Nucleated Red Blood Cells % 0 %; Platelet Count 132 10^3/cmm (130-400); Red Blood Count 3.63 10^6/uL (4.1-5.3); Red Cell Distribution Width 16.5 % (12.1-15.1); White Blood Count 9.6 10^3/uL (4.0-10.0)
[2022-04-08 11:23] LABS: Alanine Aminotransferase 14 U/L (0-41); Albumin Level 4.6 g/dL (3.5-5.2); Alkaline Phosphatase 71 IU/L (40-130); Anion Gap 17.5 (5-19); Aspartate Amino Transferase 17 U/L (0-40); Blood Urea Nitrogen 39 mg/dL (6-20); Calcium 9.8 mg/dL (8.5-10.5); Carbon Dioxide 34 mmol/L (22-29); Chloride 91 mmol/L (98-107); Globulin 2.8 g/dL (1.3-4.6); Glomerular Filtration Rate 8.1 mL/min (90-130); Glucose 125 mg/dL (65-115); Osmolality Calculated 297 mOsm/kg (285-295); Potassium 4.5 mmol/L (3.5-5.1); Sodium 138 mmol/L (136-145); Total Bilirubin 0.5 mg/dL (0.15-1.2); Total Protein 7.4 g/dL (6.6-8.7)
== END 2022-04-08 10:35 ==
PROVIDERS: PCP Internal Medicine; Visit Provider Internal Medicine Critical Care Medicine
DX: D64.9 Anemia, unspecified (principal); J84.03 Idiopathic pulmonary hemosiderosis; N18.6 End stage renal disease; I50.43 Acute on chronic combined systolic (congestive) and diastolic (congestive) heart failure; E83.119 Hemochromatosis, unspecified; I82.621 Acute embolism and thrombosis of deep veins of right upper extremity
CPT/HCPCS: 80053; 85025; 99214

== ENCOUNTER 2022-07-09 09:25 | Emergency (ER) | payer MEDICARE, MEDICAID, SELFPAY ==
[2022-07-09] VITALS (20 sets, daily range): BP systolic 152–169; BP diastolic 75–101; PULSE 71–88; RESP 12–22; TEMP 36.6; O2SAT 91–96; BMI 28.7
--- NOTE | 2022-07-09 09:27 | XR_ITS ---
WS: [id number] XR chest 1V portable [id number] REASON FOR EXAM: cp; FINDINGS: Mild to moderate cardiomegaly. Moderate tortuosity and ectasia of the thoracic aorta with calcificati on of the aortic arch. Probable left coronary artery stent. Calcified granulomatous disease in both hemithoraces. Chronic pleural thickening with flattening of the hemidiaphragms and blunting of the costophrenic ang les. No acute pulmonary parenchymal or pleural abnormality. XR/XR chest 1V portable [id number] IMPRESSION: Cardiomegaly without acute chest abnormality.
--- NOTE | 2022-07-09 09:27 | ECG_ITS ---
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 Measurements Intervals [place] Rate: 71 P: 12 OK: 156 QRS: 17 QRSD: 104 T: 221 QT: 438 QTc: 479 Interpretive Statements SINUS RHYTHM LEFT VENTRICULAR HYPERTROPHY AND ST-T CHANGE [VOLTAGE CRITERIA PLUS ST/T ABNORMALITY] Compared to ECG 09/16/2021 00:00:04 No significant changes Electronically Signed On 07-09-2022 13:41:58 CDT by Sun Valle M.D. [email or web address]
--- NOTE | 2022-07-09 09:40 | PC.NURSE ---
pt reports chest pain with exertion over last two week, pain radiates down left arm accompanied with shortness of breath. Pt reports pain is similar to previous episodes where he ended up having two cardiac stents now. reports has a total of 4 stents. Has dialysis MWF, has not yet had it today.
--- NOTE | 2022-07-09 09:42 | ED_ITS ---
HPI - Chest Pain General: Chief Complaint: Chest Pain Stated Complaint: chest pain Time Seen by Provider: 07/09/22 09:28 Source: patient Mode of arrival: ambulatory Limitations: no limitations History of Present Illness: 52-year-old male who has extensive history including history of coronary artery disease end-stage renal disease he does get dialysis Tuesday he states he has been having chest pain along with some shortness of breath of the last 2 weeks states been a burning pain in the center of his chest especially exertion rating to his left arm. States pain currently is a 4 out of 10 has been fairly constant in nature. He denies any vomiting or diaphoresis denies any cough or fever. Associated symptoms: Reports dyspnea; Deny abdominal pain, fever(s), nausea or vomiting Review of Systems Const: Denies: fever(s), chills, body aches or change in appetite Eyes: Denies: blurry vision or eye discomfort ENMT: Denies: throat pain or dental pain Card: Reports: chest pain Resp: Reports: dyspnea GI: Denies: abdominal pain, nausea, vomiting or diarrhea : Denies: dysuria Musc: Denies: neck pain or back pain Skin/Breast: Denies: rash Neuro: Denies: headache(s) Psych: Denies: depression Pranav/Lymph: Denies: easy bruising All/Imm: Denies: urticaria PFSH ED PFSH: Medical History Atherosclerotic heart disease of [place] coronary artery without angina pectoris Benign essential hypertension Cardiomyopathy CHF NYHA class III (symptoms with mildly strenuous activities) COPD (chronic obstructive pulmonary disease) Diabetes mellitus DVT (deep venous thrombosis) Dyslipidemia ESRD (end stage renal disease) Hemochromatosis Hemoptysis Idiopathic pulmonary hemosiderosis Mixed hyperlipidemia Non-ST elevation (NSTEMI) myocardial infarction Pneumonia Pulmonary hypertension Sepsis Surgical History Fistula Left Wrist H/O elbow surgery H/O hand surgery H/O neck surgery History of back surgery History of intravascular stent placement History of thoracotomy S/P hemodialysis catheter insertion (09/17/21) Family History Grandmother , In her 50's Myocardial infarction Father Diabetes Mother Diabetes Social History Smoking and tobacco status: former smoker Quit status (tobacco): has quit using tobacco Year quit tobacco: 1999 - 2PPD x 20 Years Second hand smoke exposure: No Alcohol intake: current Alcohol intake frequency: holidays/special occasions only Lives independently: Yes Household members: spouse Marital status: Current occupational status: disabled History of recent travel: No Current gender identity: Male Physical Exam Const: COMMON NORMALS: no acute distress, patient oriented x3 and healthy appearing HENMT: COMMON NORMALS: normocephalic and atraumatic HEAD & SCALP: normocephalic and atraumatic Eye: COMMON NORMALS: Equal, round and reactive pupils present and EOMs intact bilaterally PUPIL: Yes Equal, round and reactive pupils present Neck/C-Spine: COMMON NORMALS: full ROM and supple Chest: COMMONS NORMALS: normal inspection of the chest and normal palpation of entire chest wall Resp: COMMON NORMALS: normal respiratory effort, No retractions, No use of accessory muscles and clear to auscultation bilaterally AUSCULTATION: clear to auscultation bilaterally Cardio: COMMON NORMALS: regular rate, regular rhythm and No murmurs present (Cardio) RATE: regular rate RHYTHM: regular rhythm GI: COMMON NORMALS: Normal to inspection, nondistended, normoactive bowel sounds present, Soft to palpation, non-tender and no masses PALPATION: Yes Soft to palpation Extremity: COMMON NORMALS: normal to inspection and full ROM Neuro: COMMON NORMALS: patient oriented x3, moves all extremities and no focal motor deficits Psych: COMMON NORMALS: mental status grossly normal, Normal thought process present and cooperative THOUGHT PROCESS: Normal thought process present Skin: COMMON NORMALS: no rashes or lesions noted and no wounds GENERAL SKIN EXAM: no rashes or lesions noted Course Vital Signs: Vital signs: Vital Signs Temperature 97.9 F 07/09/22 09:29 Pulse Rate 87 07/09/22 13:00 Respiratory Rate 19 H 07/09/22 13:00 Blood Pressure 158/101 07/09/22 13:00 Pulse Oximetry 91 07/09/22 13:00 Oxygen Delivery Me thod 07/09/22 09:29 MDM - Chest Pain Medical Decision Making Patient presents with chest pain has been constant for 2 weeks his repeat trop onin here is negative EKG showed no acute abnormalities patient is well- appearing here he is stable for discharge he is to follow-up with cardiology outpatient return if worsening he understands agrees to plan. Lab Data : 07/09/22 09:52 07/09/22 09:52 Radiology Impressions Chest X-Ray 07/09/22 09:27 IMPRESSION: Cardiomegaly without acute chest abnormality. Laboratory Results WBC 10.7 10^3/uL (4.0-10.0) H 07/09/22 09:52 RBC 3.46 10^6/uL (4.1-5.3) L 07/09/22 09:52 Hgb 10.8 g/dL (11.7-16.6) L 07/09/22 09:52 Hct 33.4 % (42.0-52.0) L 07/09/22 09:52 MCV 96.5 fl (80-94) H 07/09/22 09:52 MCH 31.2 pg (28.0-34.0) 07/09/22 09:52 MCHC 32.3 g/dL (30.0-36.0) 07/09/22 09:52 RDW 15.9 % (12.1-15.1) H 07/09/22 09:52 Plt Count 129 10^3/cmm (130-400) L 07/09/22 09:52 MPV 9.9 fL (7.4-10.4) 07/09/22 09:52 Neut % (Auto) 85.7 % 07/09/22 09:52 Lymph % (Auto) 4.5 % 07/09/22 09:52 [place] % (Auto) 8.2 % 07/09/22 09:52 Eos % (Auto) 0.7 % 07/09/22 09:52 Baso % (Auto) 0.5 % 07/09/22 09:52 Neut # (Auto) 9.15 10^3/uL (1.8-7.7) H 07/09/22 09:52 Lymph # (Auto) 0.5 10^3/uL (0.8-4.8) L 07/09/22 09:52 [place] # (Auto) 0.9 10^3/uL (0.2-0.9) 07/09/22 09:52 Eos # (Auto) 0.1 10^3/uL (0.0-0.8) 07/09/22 09:52 Baso # (Auto) 0.1 10^3/uL (0.0-0.1) 07/09/22 09:52 Nucleated RBC % (auto) 0 % 07/09/22 09:52 Nucleated RBCs # 0.0 /100WBC 07/09/22 09:52 PT 12.10 SECONDS (12.1-14.9) 07/09/22 09:52 INR 0.87 (0.8-1.2) 07/09/22 09:52 Sodium 136 mmol/L (136-145) 07/09/22 09:52 Potassium 4.5 mmol/L (3.5-5.1) 07/09/22 09:52 Chloride 92 mmol/L (98-107) L 07/09/22 09:52 Carbon Dioxide 29 mmol/L (22-29) 07/09/22 09:52 Anion Gap 19.5 (5-19) H 07/09/22 09:52 BUN 36 mg/dL (6-20) H 07/09/22 09:52 Creatinine 9.0 mg/dL (0.7-1.2) H* 07/09/22 09:52 GFR Calculation 6.2 mL/min (90-130) L 07/09/22 09:52 Glucose 158 mg/dL (65-115) H 07/09/22 09:52 Calculated Osmolality 294 mOsm/kg (285-295) 07/09/22 09:52 Calcium 9.8 mg/dL (8.5-10.5) 07/09/22 09:52 Total Bilirubin 0.5 mg/dL (0.15-1.2) 07/09/22 09:52 AST 24 U/L (0-40) 07/09/22 09:52 ALT 13 U/L (0-41) 07/09/22 09:52 Alkaline Phosphatase 67 U/L (40-130) 07/09/22 09:52 Troponin T Baseline 163 ng/L (0-15) H* 07/09/22 09:52 Troponin T 120 Minute 146.6 ng/L (0-15) H 07/09/22 11:55 Delta Troponin T -16.4 ABS# (0-10) L 07/09/22 11:55 Total Protein 7.4 g/dL (6.6-8.7) 07/09/22 09:52 Albumin 4.4 g/dL (3.5-5.2) 07/09/22 09:52 Globulin 3.0 g/dL (1.3-4.6) 07/09/22 09:52 EKG Data EKG 1: I personally reviewed and interpreted this EKG as follows: EKG interpretation date: 07/09/22 EKG interpretation time: 09:51 Interpretation: nsr hr [address] or t wave abnormalities qrs 104 qtc 461 Discharge Plan Discharge Patient Disposition: Home Clinical Impression: Chest pain Condition: Stable Prescriptions: No Action albuterol sulfate 90 mcg/actuation HFA aerosol inhaler 2 puff inhalation QID PRN (Reason: shortness of breath or wheezing) 30 Days Qty: 8.5 2RF nitroglycerin [Nitrostat] 0.4 mg tablet, sublingual 0.4 mg SUBLINGUAL Q5M PRN (Reason: Chest Pain) Rx Instructions: max 3 doses fluticasone propionate [Flonase Allergy Relief] 50 mcg/actuation spray,suspension 1 spray intranasal BID PRN (Reason: Nasal Congestion) Rx Instructions: administer into each nostril pregabalin [Lyrica] 75 mg capsule 25 mg PO DAILY nifedipine 90 mg tablet extended release 24hr 90 mg PO DAILY Entresto 24-26 mg tablet 1 tab PO BID Qty: 180 3RF isosorbide mononitrate 60 mg tablet extended release 24 hr 60 mg PO DAILY Qty: 90 1RF prednisone 10 mg tablet 10 mg PO QAM Qty: 30 0RF lidocaine-prilocaine 2.5-2.5 % cream See Rx Instructions .ROUTE .COMPLEX Rx Instructions: use as directed over fistula prior to dialysis treatments. sevelamer HCl 800 mg tablet See Rx Instructions .ROUTE .COMPLEX Rx Instructions: 2,400 mg po tid and 1600 mg po with large snacks pantoprazole 40 mg tablet,delayed release (DR/EC) 40 mg PO QAM oxycodone 5 mg tablet 5 mg PO BID PRN (Reason: Pain) atorvastatin 40 mg Tablet 40 mg PO BEDTIME Qty: 90 3RF clopidogrel 75 mg tablet 75 mg PO BEDTIME Qty: 30 3RF aspirin 81 mg tablet,delayed release (DR/EC) 81 mg PO QAM Qty: 30 3RF clonazepam 1 mg tablet See Rx Instructions .ROUTE .COMPLEX Rx Instructions: 1 mg orally ONE HOUR PRIOR TO DIALYSIS metoprolol tartrate 25 mg tablet 25 mg PO BID azathioprine 50 mg tablet See Rx Instructions .ROUTE .COMPLEX Rx Instructions: 25 MG PO IN THE AM AND 50 MG PO IN THE EVENING duloxetine 20 mg capsule,delayed release(DR/EC) 20 mg PO DAILY Discharge Orders: Discharge ED (Routine); Ordered 07/09/22 Ordered By: Jose Manuel Garcia Referrals: Jarrod Alvarado MD [Physician] - 1-3 days Michael Eubanks DO [Primary Care Provider] - 1-3 days Discharge Diet: Advance as tolerated Discharge Activity: Resume usual activity Patient Instructions: Chest Pain (ED) Coding Level of Care Code ED Inspector Advanced Composite for Gabyg Fwd Exam Comprehensive
[2022-07-09 10:04] LABS: Basophils # 0.1 10^3/uL (0.0-0.1); Basophils % 0.5 %; Eosinophils # 0.1 10^3/uL (0.0-0.8); Eosinophils % 0.7 %; Hematocrit 33.4 % (42.0-52.0); Hemoglobin 10.8 g/dL (11.7-16.6); Lymphocytes # 0.5 10^3/uL (0.8-4.8); Lymphocytes % 4.5 %; Mean Corpuscular HGB Conc 32.3 g/dL (30.0-36.0); Mean Corpuscular Hemoglobin 31.2 pg (28.0-34.0); Mean Corpuscular Volume 96.5 fl (80-94); Mean Platelet Volume 9.9 fL (7.4-10.4); Monocytes # 0.9 10^3/uL (0.2-0.9); Monocytes % 8.2 %; Neutrophils # 9.15 10^3/uL (1.8-7.7); Neutrophils % 85.7 %; Nucleated Red Blood Cells % 0 %; Platelet Count 129 10^3/cmm (130-400); Red Blood Count 3.46 10^6/uL (4.1-5.3); Red Cell Distribution Width 15.9 % (12.1-15.1); White Blood Count 10.7 10^3/uL (4.0-10.0)
--- NOTE | 2022-07-09 10:05 | PC.NURSE ---
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
[2022-07-09 10:24] LABS: Alanine Aminotransferase 13 U/L (0-41); Albumin Level 4.4 g/dL (3.5-5.2); Alkaline Phosphatase 67 U/L (40-130); Blood Urea Nitrogen 36 mg/dL (6-20); Calcium 9.8 mg/dL (8.5-10.5); Carbon Dioxide 29 mmol/L (22-29); Chloride 92 mmol/L (98-107); Glomerular Filtration Rate 6.2 mL/min (90-130); Glucose 158 mg/dL (65-115); Osmolality Calculated 294 mOsm/kg (285-295); Sodium 136 mmol/L (136-145); Total Bilirubin 0.5 mg/dL (0.15-1.2); Total Protein 7.4 g/dL (6.6-8.7)
[2022-07-09 10:25] LABS: Troponin(5th) Baseline 163 ng/L (0-15)
[2022-07-09 10:26] LABS: Anion Gap 19.5 (5-19); Aspartate Amino Transferase 24 U/L (0-40); INR 0.87 (0.8-1.2); Potassium 4.5 mmol/L (3.5-5.1)
[2022-07-09 12:42] LABS: Troponin 5 2HR 146.6 ng/L (0-15); Troponin 5 2HR Delta -16.4 ABS# (0-10)
--- NOTE | 2022-07-09 15:27 | ECG_ITS ---
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 Measurements Intervals [place] Rate: 73 P: 49 VA: 164 QRS: 9 QRSD: 105 T: 186 QT: 429 QTc: 474 Interpretive Statements SINUS RHYTHM LEFT VENTRICULAR HYPERTROPHY AND ST-T CHANGE [VOLTAGE CRITERIA PLUS ST/T ABNORMALITY] Compared to ECG 07/09/2022 09:51:22 No significant changes Electronically Signed On 07-10-2022 8:43:03 CDT by Sun Valle M.D. [id number]
== END 2022-07-09 15:05 | disposition home or self-care (01) ==
PROVIDERS: Emergency Provider Emergency Medicine; PCP Internal Medicine
DX: R07.9 Chest pain, unspecified (principal); I25.10 Atherosclerotic heart disease of native coronary artery without angina pectoris; I10 Essential (primary) hypertension; E78.5 Hyperlipidemia, unspecified; J84.03 Idiopathic pulmonary hemosiderosis; N18.6 End stage renal disease; D64.9 Anemia, unspecified; I50.43 Acute on chronic combined systolic (congestive) and diastolic (congestive) heart failure; E83.119 Hemochromatosis, unspecified; I82.621 Acute embolism and thrombosis of deep veins of right upper extremity; Z87.891 Personal history of nicotine dependence
CPT/HCPCS: 71045; 80053; 84484; 85025; 85610; 93005; 99214; 99285

== ENCOUNTER 2022-08-30 08:26 | Day surgery (SDC) | payer MEDICARE, MEDICAID, SELFPAY ==
[2022-08-27 12:25] VITALS: BMI 24.3
--- NOTE | 2022-08-30 08:08 | P.HP_ITS ---
Same Day Surgery H&P Indication for Procedure/HPI DATE OF PROCEDURE: August 30, 2022 CHIEF COMPLAINT/INDICATIONFOR SURGICAL PROCEDURE: Epigastric pain and weight loss PREOP DIAGNOSIS: ESRD with nonfunctioning AV fistula PLANNED PROCEDURE: Operation Date: 08/30/22 10:15 Proposed Procedures p EGD 05438,K44.9(Not Applicable) - Fili Paris MD Medications/Allergies* Home Medications Medication Instructions Recorded Confirmed Type nitroglycerin 0.4 mg sublingual 0.4 mg sublingual Q5M PRN Chest 10/31/19 08/27/22 History tablet (Nitrostat) Pain lidocaine-prilocaine 2.5 %-2.5 % See Rx Instructions .Route .COMPLEX 05/24/20 08/27/22 History topical cream fluticasone propionate 50 1 spray intranasal BID PRN Nasal 03/10/21 08/27/22 History mcg/actuation nasal Congestion spray,suspension (Flonase Allergy Relief) sevelamer HCl 800 mg tablet See Rx Instructions .Route .COMPLEX 05/18/21 08/27/22 History oxycodone 5 mg tablet 5 mg PO BID PRN Pain 09/07/21 08/27/22 History pantoprazole 40 mg tablet,delayed 40 mg PO QAM 09/07/21 08/27/22 History release pregabalin 75 mg capsule (Lyrica) 25 mg PO DAILY 04/08/22 08/27/22 History clonazepam 1 mg tablet 1 mg PO PRN PRN Anxiety 07/09/22 08/27/22 History duloxetine 20 mg capsule,delayed 20 mg PO DAILY 07/09/22 08/27/22 History release metoprolol tartrate 25 mg tablet 25 mg PO BID 07/09/22 08/27/22 History nifedipine 90 mg tablet,extended 90 mg PO DAILY 07/09/22 08/27/22 History release 24 hr Allergies/Adverse Reactions Allergy/AdvReac Type Severity Reaction Status Date / Time azithromycin Allergy ADR-Chest Verified 08/26/22 10:28 Pain carvedilol AdvReac ADR-Dizzine Verified 08/26/22 10:28 ss Pertinent History/Comorbid Conditions* Medical History (Updated 08/26/22 @ 11:05 by Fili Paris MD) Atherosclerotic heart disease of [place] coronary artery without angina pectoris Benign essential hypertension Cardiomyopathy CHF NYHA class III (symptoms with mildly strenuous activities) COPD (chronic obstructive pulmonary disease) Diabetes mellitus DVT (deep venous thrombosis) Dyslipidemia ESRD (end stage renal disease) Hemochromatosis Hemoptysis Idiopathic pulmonary hemosiderosis Mixed hyperlipidemia Non-ST elevation (NSTEMI) myocardial infarction Pneumonia Pulmonary hypertension Sepsis Surgical History (Updated 09/18/21 @ 10:41 by Lb Howell MD) Fistula Left Wrist H/O elbow surgery H/O hand surgery H/O neck surgery History of back surgery History of intravascular stent placement History of thoracotomy S/P hemodialysis catheter insertion (09/17/21) Family History (Updated 10/31/19 @ 08:51 by Peri Johnson LPN) Grandmother, In her 50's Diabetes Father Mother Myocardial infarction Grandmother Social History Smoking and tobacco status: former smoker Quit status (tobacco): has quit using tobacco Year quit tobacco: 1999 - 2PPD x 20 Years Second hand smoke exposure: No Alcohol intake: current Alcohol intake frequency: holidays/special occasions only Lives independently: Yes Household members: spouse Marital status: Current occupational status: disabled History of recent travel: No Current gender identity: Male Pertinent Exam Findings alert, oriented x 3, clear to auscultation bilaterally, regular rate & rhythm, operative site marked and procedure specific exam findings Recommendations Surgery/Procedure today Coding Level of Care Code Acute Manager Transplant for Ger Godfrey
[2022-08-30 09:20] VITALS: BP 193/102; PULSE 77; RESP 20; TEMP 36.6; O2SAT 95
[2022-08-30] MEDS: sodium chloride 0.9% 1,000 ML 30 ML IV (09:28)
--- NOTE | 2022-08-30 09:39 | ANES.PREANE2 ---
Pre-Anesthetic Assessment Height/Weight: Height 1.78 m Weight 77.111 kg Temp Pulse Resp BP Pulse Ox O2 Del Method 97.8 F 77 20 H 193/102 95 08/30/22 09:20 08/30/22 09:20 08/30/22 09:20 08/30/22 09:20 08/30/22 09:20 08/30/22 09:20 Preop Diagnosis: GERD despite PPI Operation Date: 08/30/22 10:15 Proposed Procedures p EGD 81040,K44.9(Not Applicable) - Fili Paris MD Familial anesthetic complications: none Was Beta Bjorn taken within 24 hours: Yes Was Clonidine taken within 24 hours: N/A Last intake: Intake Last Liquid Date 08/29/22 Last Liquid Time 23:00 Last Solid Date 08/29/22 Last Solid Time 15:00 Social No alcohol and No tobacco Exam alert, oriented x 3, clear to auscultation bilaterally and regular rate & rhythm Airway Submandibular: within normal limits Cervical ROM: within normal limits Mallampati: Class II Dentition: chipped CV/HEM Anemia, Coronary Artery Disease, Hypertension and Myocardial Infarction Chronic Renal Failure Dialysis M-W-F GI Gastroesophageal Reflux Disease Metabolic Hyperlipidemia Chronic steroids Musc/skel Lower Back Pain and Osteoarthritis/DJD Anesthetic Plan ASA status: 3 Anesthesia: MAC Medications/Allergies Home Medications Medication Instructions Recorded Confirmed Last Taken Type nitroglycerin 0.4 mg sublingual 0.4 mg sublingual Q5M PRN Chest 10/31/19 08/30/22 Unknown History tablet (Nitrostat) Pain lidocaine-prilocaine 2.5 %-2.5 % See Rx Instructions .Route .COMPLEX 05/24/20 08/30/22 07/03/21 History topical cream albuterol sulfate 90 mcg/actuation 2 puff inhalation QID PRN 12/25/20 08/30/22 07/06/21 Rx aerosol inhaler shortness of breath or wheezing 30 days #8.5 grams fluticasone propionate 50 1 spray intranasal BID PRN Nasal 03/10/21 08/30/22 08/30/21 History mcg/actuation nasal Congestion spray,suspension (Flonase Allergy Relief) sevelamer HCl 800 mg tablet See Rx Instructions .Route .COMPLEX 05/18/21 08/27/22 08/29/22 History oxycodone 5 mg tablet 5 mg PO BID PRN Pain 09/07/21 08/30/22 Unknown History pantoprazole 40 mg tablet,delayed 40 mg PO QAM 09/07/21 08/27/22 08/29/22 History release aspirin 81 mg tablet,delayed 81 mg PO QAM #30 tabs 09/11/21 08/30/22 08/29/22 Rx release atorvastatin 40 mg tablet 40 mg PO BEDTIME #90 tabs 09/11/21 08/30/22 08/28/22 Rx clopidogrel 75 mg tablet 75 mg PO BEDTIME #30 tabs 09/11/21 08/30/22 08/25/22 Rx sacubitril 24 mg-valsartan 26 mg 1 tab PO BID #180 tabs 10/14/21 08/27/22 08/29/22 Rx tablet (Entresto) isosorbide mononitrate 60 mg 60 mg PO DAILY #90 tabs 11/25/21 08/30/22 08/26/22 Rx tablet,extended release 24 hr pregabalin 75 mg capsule (Lyrica) 25 mg PO DAILY 04/08/22 08/27/22 08/29/22 History clonazepam 1 mg tablet 1 mg PO PRN PRN Anxiety 07/09/22 08/30/22 Unknown History duloxetine 20 mg capsule,delayed 20 mg PO DAILY 07/09/22 08/27/22 08/29/22 History release metoprolol tartrate 25 mg tablet 25 mg PO BID 07/09/22 08/30/22 08/30/22 History nifedipine 90 mg tablet,extended 90 mg PO DAILY 07/09/22 08/30/22 08/26/22 History release 24 hr prednisone 10 mg tablet 10 mg PO QAM #30 tabs 07/12/22 08/27/22 08/29/22 Rx azathioprine 50 mg tablet See Rx Instructions .Route 08/09/22 08/27/22 08/29/22 Rx .COMPLEX #45 tabs Allergies Allergy/AdvReac Type Severity Reaction Status Date / Time azithromycin Allergy ADR-Chest Verified 08/26/22 10:28 Pain carvedilol AdvReac ADR-Dizzine Verified 08/26/22 10:28 ss Current Medications Generic Name Dose Route Start Last Admin Trade Name Freq PRN Reason Stop Dose Admin Sodium Chloride 1,000 mls @ 30 mls/hr 08/30/22 08:45 08/30/22 09:28 Sodium Chloride 0.9% IV 08/31/22 08:44 30 mls/hr .Q24H JANNET Administration PFSH Anesthesia Medical History Atherosclerotic heart disease of [place] coronary artery without angina pectoris Benign essential hypertension Cardiomyopathy CHF NYHA class III (symptoms with mildly strenuous activities) COPD (chronic obstructive pulmonary disease) Diabetes mellitus DVT (deep venous thrombosis) Dyslipidemia ESRD (end stage renal disease) Hemochromatosis Hemoptysis Idiopathic pulmonary hemosiderosis Mixed hyperlipidemia Non-ST elevation (NSTEMI) myocardial infarction Pneumonia Pulmonary hypertension Sepsis Surgical History Fistula Left Wrist H/O elbow surgery H/O hand surgery H/O neck surgery History of back surgery History of intravascular stent placement History of thoracotomy S/P hemodialysis catheter insertion (09/17/21) Family History Grandmother , In her 50's Myocardial infarction Father Diabetes Mother Diabetes Social History Smoking and tobacco status: former smoker Quit status (tobacco): has quit using tobacco Year quit tobacco: 1999 - 2PPD x 20 Years Second hand smoke exposure: No Alcohol intake: current Alcohol intake frequency: holidays/special occasions only Lives independently: Yes Household members: spouse Marital status: Current occupational status: disabled History of recent travel: No Current gender identity: Male Data Anesthesia : 08/30/22 09:16 Cardiac Studies: Echocardiogram 07/06/21 Echocardiogram Limited Views 09/09/21 Echocardiogram Ultrasound 07/03/20 Sestamibi Stress Test (Cardiology) 09/10/21
[2022-08-30 09:51] LABS: Blood Urea Nitrogen 46 mg/dL (6-20); Carbon Dioxide 26 mmol/L (22-29); Chloride 98 mmol/L (98-107); Glomerular Filtration Rate 4.4 mL/min (90-130); Glucose 90 mg/dL (65-115); Osmolality Calculated 299 mOsm/kg (285-295); Sodium 139 mmol/L (136-145)
[2022-08-30 11:21] VITALS: BP 135/96; PULSE 77; RESP 16; TEMP 36.2; O2SAT 92
[2022-08-30 11:49] VITALS: BP 166/81; PULSE 91; RESP 18; O2SAT 93
--- NOTE | 2022-08-30 12:54 | ANE.PACU2 ---
Inpatient post-anesthesia follow up: Airway intact: Yes Vital signs: Temperature 97.1 F Pulse Rate 91 Respiratory Rate 18 Blood Pressure 166/81 Pulse Oximetry 93 Oxygen Delivery Me thod Nasal Cannula Oxygen Flow Rate 2 Fraction of Inspir ed Oxygen Hydration adequate: Yes Nausea and vomiting: No Pain level: 1
== END 2022-08-30 12:04 | disposition home or self-care (01) ==
PROVIDERS: Anesthesiology; PCP Internal Medicine; Visit Provider Internal Medicine
PROC: 0DJ08ZZ Inspection of Upper Intestinal Tract, Via Natural or Artificial Opening Endoscopic (ICD-10-PCS; CPT 43235; principal; 2022-08-30 10:15)
DX: K21.9 Gastro-esophageal reflux disease without esophagitis (principal); K44.9 Diaphragmatic hernia without obstruction or gangrene; I25.10 Atherosclerotic heart disease of native coronary artery without angina pectoris; I25.2 Old myocardial infarction; Z79.52 Long term (current) use of systemic steroids; Z86.718 Personal history of other venous thrombosis and embolism; E78.2 Mixed hyperlipidemia; E11.22 Type 2 diabetes mellitus with diabetic chronic kidney disease; I12.0 Hypertensive chronic kidney disease with stage 5 chronic kidney disease or end stage renal disease; N18.6 End stage renal disease; Z99.2 Dependence on renal dialysis; Z87.891 Personal history of nicotine dependence
CPT/HCPCS: 36415; 43235; 80048; J2704; J3490; J7030

== ENCOUNTER 2022-09-22 12:42 | Inpatient (IN) | payer MEDICARE, MEDICAID, SELFPAY ==
[2022-09-22] VITALS (37 sets, daily range): BP systolic 132–170; BP diastolic 89–105; PULSE 89–120; RESP 3–37; TEMP 36.7–37.1; O2SAT 88–99; BMI 27.4; BMI 27.3
--- NOTE | 2022-09-22 13:11 | CT_ITS ---
WS: [id number] CTA CHEST WITH ABDOMEN AND PELVIS TECHNIQUE: Contrast enhanced CTA of the chest followed by abdomen, and pelvis with coronal and sagitt al reformatted images and additional MIP Images. CLINICAL INFORMATION: chest pain tachycardia hemoptysis w abdominal pain COMPARISON: CTA September 18, 2021 DLP: 1154.[address] scans at [facility] use at least one of these dose optimization techniques: automated e xposure control; mA and/or kV adjustment per patient size (includes targeted exams where dose is matc hed to clinical indication); or iterative reconstruction. FINDINGS: Some images degraded by motion. Small LEFT pleural effusion with compressive atelectasis LEFT lower lobe. Slight patchy infiltrates i n the RIGHT lower lobe. Trace RIGHT pleural fluid. Hazy groundglass opacities in the perihilar region s and lung bases. Cardiomegaly. Proximal main pulmonary arteries are normal. No evidence of pulmonary embolus. Aortic calcification. Normal caliber thoracic aorta. A few prominent peribronchial lymph nodes nonspe cific but likely reactive. No axillary lymphadenopathy. Mild thoracic curve. Hypertrophic changes tho racic spine with ankylosis. Evidence of prior coronary stents. Enlarged LEFT ventricle. Hepatomegaly with coarse heterogeneous enhancement. Recommend correlation with liver function tests. Normal gallbladder. Portal vein and splenic vein are patent. Normal spleen. Normal pancreas. Normal caliber abdominal aorta. Aortic calcification. 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 Mil d stenosis of the SMA origin. Normal caliber abdominal aorta. Adrenal glands are normal. Bilateral renal atrophy. A few prominent lymph nodes in the melva hepatis likely reactive. Normal GE junction. Fat-containing umbilical hernia. Sigmoid diverticulosis. No evid ence of acute diverticulitis. Small bilateral fat-containing inguinal hernias. CT/CT angio chest w abd pel w con IMPRESSION: 1. No evidence of pulmonary embolus. 2. Cardiomegaly with enlarged LEFT ventricle. 3. Small LEFT pleural effusion with compressive atelectasis in the LEFT lower lobe. 4. Trace RIGHT pleural fluid with patchy infiltrates in the RIGHT lower lobe. Groundglass opacities in the perihilar regions and lower lungs bilaterally like ly due to edema. 5. Hepatomegaly with heterogeneous enhancement. Recommend correlation with juan er function studies. 6. Bilateral renal cortical atrophy. 7. Diverticulosis. No evidence of acute diverticulitis. 8. Severe narrowing at the celiac artery origin unchanged. SMA is patent.
--- NOTE | 2022-09-22 13:11 | ECG_ITS ---
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 Measurements Intervals [place] Rate: 120 P: 47 CO: 161 QRS: 0 QRSD: 100 T: 197 QT: 317 QTc: 448 Interpretive Statements SINUS TACHYCARDIA LEFT VENTRICULAR HYPERTROPHY AND ST-T CHANGE [VOLTAGE CRITERIA PLUS ST/T ABNORMALITY] Compared to ECG 07/09/2022 11:19:10 Sinus rhythm no longer present ST (T wave) deviation still present Electronically Signed On 09-22-2022 18:00:52 FENDER FINISHER by Vaibhav Gallegos M.D. [id number] f
--- NOTE | 2022-09-22 13:12 | XRR_ITS ---
PROCEDURE INFORMATION: Exam: XR Chest Exam date and time: 09/22/2022 1:40 PM Age: 52 years old Clinical indication: Cough with hemorrhage; Additional info: Hemoptysis TECHNIQUE: Imaging protocol: Radiologic exam of the chest. Views: 1 view. COMPARISON: CR XR chest 1V portable [id number] 07/09/2022 9:37 AM FINDINGS: Lungs: There is increasing left basilar opacity consistent with worsening atelectasis and pneumonia. Pleural spaces: Small left pleural effusion. No pneumothorax. Heart/Mediastinum: Unremarkable. No cardiomegaly. Bones/joints: Unremarkable. XR/XR chest 1V portable [id number] IMPRESSION: Increasing left basilar infiltrate and atelectasis consistent with pneumonia and increasing small left pleural effusion.
--- NOTE | 2022-09-22 13:16 | ED_ITS ---
HPI - SOB/Dyspnea General: Chief Complaint: Shortness of Breath/Dyspnea Stated Complaint: CP/SOB Time Seen by Provider: 09/22/22 12:43 History of Present Illness: HPI Narrative: 52-year-old male with a history of hypertension, chronic renal failure on hemodialysis previous CA, hyperlipidemia who presents with 3 days of constant chest pain. He describes it as a burning across his chest, radiating into his jaw and down both arms. He has associated shortness of breath. He has also had diaphoresis and nausea. He states he has had a cough, coughing up bloody sputum. He has a history of hemochromatosis and hemosiderosis. He states he has been having fevers, chills and sweats. He is also had associated fatigue and body aches. He dialyzed last on Tuesday, missing dialysis today. Associated symptoms: Reports abdominal pain, chest pain, fever(s), hemoptysis, lightheadedness, nausea and orthopnea; Deny vomiting Review of Systems Const: Reports: fever(s), chills, body aches, fatigue and malaise Eyes: Denies: change in vision ENMT: Denies: throat pain Card: Reports: chest pain, lightheadedness, dyspnea on exertion and orthopnea Resp: Reports: dyspnea, productive cough and hemoptysis GI: Reports: abdominal pain and nausea; Denies: vomiting, hematemesis or diarrhea Musc: Reports: joint pain and muscle cramps Skin/Breast: Denies: rash Neuro: Reports: headache(s) PFSH ED PFSH: Medical History 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 Benign essential hypertension Cardiomyopathy CHF NYHA class III (symptoms with mildly strenuous activities) COPD (chronic obstructive pulmonary disease) Diabetes mellitus DVT (deep venous thrombosis) Dyslipidemia ESRD (end stage renal disease) Hemochromatosis Hemoptysis Idiopathic pulmonary hemosiderosis Mixed hyperlipidemia Non-ST elevation (NSTEMI) myocardial infarction Pneumonia Pulmonary hypertension Sepsis Surgical History Fistula Left Wrist H/O elbow surgery H/O hand surgery H/O neck surgery History of back surgery History of intravascular stent placement History of thoracotomy S/P hemodialysis catheter insertion (09/17/21) Family History Grandmother , In her 50's Myocardial infarction Father Diabetes Mother Diabetes Social History Smoking and tobacco status: former smoker Quit status (tobacco): has quit using tobacco Year quit tobacco: 1999 - 2PPD x 20 Years Second hand smoke exposure: No Alcohol intake: current Alcohol intake frequency: holidays/special occasions only Lives independently: Yes Household members: spouse Marital status: Current occupational status: disabled History of recent travel: No Current gender identity: Male Physical Exam Const: COMMON NORMALS: patient oriented x3 HENMT: COMMON NORMALS: normocephalic and atraumatic HEAD & SCALP: normocephalic and atraumatic Eye: COMMON NORMALS: Equal, round and reactive pupils present and EOMs intact bilaterally PUPIL: Yes Equal, round and reactive pupils present Neck/C-Spine: COMMON NORMALS: full ROM and supple Chest: COMMONS NORMALS: normal inspection of the chest Resp: OTHER: Patient is tachypneic, using his accessory muscles to breathe. He has crackles in the right lung base. Decreased breath sounds bilaterally. Cardio: COMMON NORMALS: regular rhythm and No murmurs present (Cardio) RHYTHM: regular rhythm OTHER: Patient is tachycardic GI: COMMON NORMALS: Normal to inspection, nondistended, normoactive bowel sounds present, Soft to palpation and no masses PALPATION: Yes Soft to palpation OTHER: Tenderness to palpation in the epigastric area as well as in the right lower quadrant. Abdomen is soft Extremity: COMMON NORMALS: normal to inspection and full ROM Neuro: COMMON NORMALS: patient oriented x3, moves all extremities and no focal motor deficits Psych: COMMON NORMALS: mental status grossly normal, Normal thought process present and cooperative THOUGHT PROCESS: Normal thought process present Skin: COMMON NORMALS: no rashes or lesions noted and no wounds GENERAL SKIN EXAM: no rashes or lesions noted Course ED course: Patient's been evaluated in the emergency department. He presents with shortness of breath, chest pain, fever, hemoptysis. He is tachycardic, febrile. He has had an IV placed and has had labs obtained. He has been given Tylenol for his fever. On chest x-ray, he does have a left lower lobe infiltrate. On his EKG, he has sinus tachycardia, LVH but no acute ischemic changes. Patient had blood cultures obtained and has a lactic acid pending. We will treat the patient with Zosyn 3.375 mg IV as well as vancomycin 1200 mg IV. Patient will need admission. Patient's troponin is 1280. Reviewed EKG, he has T wave inversion in the lateral leads, unchanged from his prior EKG. He is continuing to have chest pain despite sublingual nitroglycerin. We will give him morphine and place him on a nitroglycerin drip. He was given aspirin by EMS. Will discuss with cardiology. Patient still needs to go to CT to rule out pulmonary embolism. Concern with fever, tachycardia tachypnea and hemoptysis about heparinizing the patient without discussing with cardiology. Patient has not had hemoptysis while here. His hemoglobin has dropped from 10.2-8.9 from 2 months ago. Patient remains hypertensive and tachycardic. Reevaluation(s): Reevaluation #1: Patient's white blood cell count is normal at 5.7. Hemoglobin is 8.9, hematocrit 28.4. Other laboratory studies are pending at this time. Given the gross hemoptysis and tachycardia, I do feel the patient needs a CTA of the chest to rule out pulmonary embolism. He also has abdominal tenderness so plan to scan the abdomen at the same time Time: 14:33 Reevaluation #2: CTA negative for pulmonary embolism. The patient's heart rate is improving. Blood pressure is improving with nitro drip. Echo has been completed at this time. Will reassess for hemoptysis and if no recurrence, will start heparin for NSTEMI. Time: 15:42 Reevaluation #3: Patient much more comfortable. Pain improving. Echo just completed. Has had no hemoptysis while here in the ER. Required bolus of heparin placed on a heparin drip. Repeat troponin is slightly elevated from initial. Will discuss with cardiology. Time: 16:10 Consultations: Consultation #1: Discussed with Dr. Valle, cardiology. Patient does not have STEMI on EKG. Agrees with IV nitro drip and morphine. Hold off on heparin until CTA completed. Recommends echo as well. Time: 14:53 Consultation #2: Spoke with Dr. Valle - agrees with iV heparin. Will see in consult. Requests the hospitalist admit. Time: 17:03 Consultation #3: Discussed with Dr. Pruitt for admission Time: 17:16 Additional Consultation(s): discussed with nephrology Vital Signs: Vital signs: Vital Signs Temperature 98.3 F 09/22/22 12:44 Pulse Rate 95 09/22/22 17:00 Respiratory Rate 25 H 09/22/22 17:00 Blood Pressure 147/96 09/22/22 17:00 Pulse Oximetry 90 09/22/22 17:00 Oxygen Delivery Me thod 09/22/22 16:45 Oxygen Flow Rate 4 09/22/22 16:45 MDM - SOB/Dyspnea Medical Decision Making 52-year-old male with a history of hypertension, hyperlipidemia, chronic renal failure on hemodialysis, previous CA who presents with chest pain which he has had constantly for the past 3 days. Patient does also have a cough with hemoptysis, associated fevers, chills and body aches and fatigue making me suspect that he may potentially have a infectious etiology. He has tachycardia with hemoptysis and certainly pulmonary embolism is in the differential as well. We will give the patient aspirin and try sublingual nitroglycerin for his pain. Will obtain labs including blood cultures and lactic acid. We will plan for CTA of the chest as well as CT of the abdomen and pelvis. Differential Diagnosis Likely acute exacerbation of chronic obstructive airways disease, congestive heart failure, community acquired pneumonia and pulmonary embolism Lab Data I reviewed the patient's lab results. 09/22/22 13:51 09/22/22 13:51 Labs/Radiology: Radiology Impressions Chest/Abdomen/Pelvis CT 09/22/22 13:11 IMPRESSION: 1. No evidence of pulmonary embolus. 2. Cardiomegaly with enlarged LEFT ventricle. 3. Small LEFT pleural effusion with compressive atelectasis in the LEFT lower lobe. 4. Trace RIGHT pleural fluid with patchy infiltrates in the RIGHT lower lobe. Groundglass opacities in the perihilar regions and lower lungs bilaterally likely due to edema. 5. Hepatomegaly with heterogeneous enhancement. Recommend correlation with liver function studies. 6. Bilateral renal cortical atrophy. 7. Diverticulosis. No evidence of acute diverticulitis. 8. Severe narrowing at the celiac artery origin unchanged. SMA is patent. Chest X-Ray 09/22/22 13:12 IMPRESSION: Increasing left basilar infiltrate and atelectasis consistent with pneumonia and increasing small left pleural effusion. Laboratory Results WBC 5.7 10^3/uL (4.0-10.0) 09/22/22 13:51 RBC 3.11 10^6/uL (4.1-5.3) L 09/22/22 13:51 Hgb 8.9 g/dL (11.7-16.6) L 09/22/22 13:51 Hct 28.4 % (42.0-52.0) L 09/22/22 13:51 MCV 91.3 fl (80-94) 09/22/22 13:51 MCH 28.6 pg (28.0-34.0) 09/22/22 13:51 MCHC 31.3 g/dL (30.0-36.0) 09/22/22 13:51 RDW 17.7 % (12.1-15.1) H 09/22/22 13:51 Plt Count 118 10^3/cmm (130-400) L 09/22/22 13:51 MPV 10.9 fL (7.4-10.4) H 09/22/22 13:51 Neut % (Auto) 85.4 % 09/22/22 13:51 Lymph % (Auto) 4.2 % 09/22/22 13:51 [place] % (Auto) 9.2 % 09/22/22 13:51 Eos % (Auto) 0.0 % 09/22/22 13:51 Baso % (Auto) 0.5 % 09/22/22 13:51 Neut # (Auto) 4.84 10^3/uL (1.8-7.7) 09/22/22 13:51 Lymph # (Auto) 0.2 10^3/uL (0.8-4.8) L 09/22/22 13:51 [place] # (Auto) 0.5 10^3/uL (0.2-0.9) 09/22/22 13:51 Eos # (Auto) 0.0 10^3/uL (0.0-0.8) 09/22/22 13:51 Baso # (Auto) 0.0 10^3/uL (0.0-0.1) 09/22/22 13:51 Nucleated RBC % (auto) 0 % 09/22/22 13:51 Nucleated RBCs # 0.0 /100WBC 09/22/22 13:51 Sodium 137 mmol/L (136-145) 09/22/22 13:51 Potassium 4.8 mmol/L (3.5-5.1) 09/22/22 13:51 Chloride 94 mmol/L (98-107) L 09/22/22 13:51 Carbon Dioxide 23 mmol/L (22-29) 09/22/22 13:51 Anion Gap 24.8 (5-19) H 09/22/22 13:51 BUN 58 mg/dL (6-20) H 09/22/22 13:51 Creatinine 11.5 mg/dL (0.7-1.2) H* 09/22/22 13:51 GFR Calculation 4.7 mL/min (90-130) L 09/22/22 13:51 Glucose 117 mg/dL (65-115) H 09/22/22 13:51 Calculated Osmolality 301 mOsm/kg (285-295) H 09/22/22 13:51 Lactic Acid 1.5 mmol/L (0.5-2.2) 09/22/22 14:20 Calcium 9.6 mg/dL (8.5-10.5) 09/22/22 13:51 Magnesium 2.0 mg/dL (1.7-2.3) 09/22/22 13:51 Total Bilirubin 1.2 mg/dL (0.15-1.2) 09/22/22 13:51 AST 745 U/L (0-40) H 09/22/22 13:51 ALT 338 U/L (0-41) H 09/22/22 13:51 Alkaline Phosphatase 60 U/L (40-130) 09/22/22 13:51 Troponin T Baseline 1280 ng/L (0-15) H* 09/22/22 13:51 Troponin T 120 Minute 1294 ng/L (0-15) H 09/22/22 15:30 Delta Troponin T 14 ABS# (0-10) H* 09/22/22 15:30 NT-Pro-B Natriuret Pep < 87805 pg/mL (0-125) H 09/22/22 13:51 Total Protein 6.9 g/dL (6.6-8.7) 09/22/22 13:51 Albumin 4.2 g/dL (3.5-5.2) 09/22/22 13:51 Globulin 2.7 g/dL (1.3-4.6) 09/22/22 13:51 Lipase 69 U/L (13-60) H 09/22/22 13:51 Influenza Type A Ag Positive (Negative) H 09/22/22 13:42 Influenza Type B Ag Negative (Negative) 09/22/22 13:42 Critical Care Time Critical Care Time: Critical Care Time: Yes Total Critical Care Time: 75 Attestation: Critical care time includes intervening patient on reevaluating the patient. Ordering tests and interpreting them, discussion with consultants and admitting physicians Discharge Plan Discharge Patient Disposition: Admitted As Inpatient Clinical Impression: Non-ST elevation (NSTEMI) myocardial infarction, Pneumonia, Hemoptysis, Fever, Chronic kidney disease with end stage renal failure on dialysis, Anemia, Influenza Condition: Stable Coding Level of Care Code ED Surgical First Assistant for Ger Fwd Exam Comprehensive
[2022-09-22] MEDS: nitroglycerin 0.4 mg sublingual Tablet SUBLINGUAL (13:37)
[2022-09-22] MEDS: nitroglycerin 1 gm/inch oint Pkt 1 INCH TOPICAL (13:37)
[2022-09-22 14:20] LABS: Basophils % 0.5 %; Hematocrit 28.4 % (42.0-52.0); Hemoglobin 8.9 g/dL (11.7-16.6); Lymphocytes # 0.2 10^3/uL (0.8-4.8); Lymphocytes % 4.2 %; Mean Corpuscular HGB Conc 31.3 g/dL (30.0-36.0); Mean Corpuscular Hemoglobin 28.6 pg (28.0-34.0); Mean Corpuscular Volume 91.3 fl (80-94); Mean Platelet Volume 10.9 fL (7.4-10.4); Monocytes # 0.5 10^3/uL (0.2-0.9); Monocytes % 9.2 %; Neutrophils # 4.84 10^3/uL (1.8-7.7); Neutrophils % 85.4 %; Nucleated Red Blood Cells % 0 %; Platelet Count 118 10^3/cmm (130-400); Red Blood Count 3.11 10^6/uL (4.1-5.3); Red Cell Distribution Width 17.7 % (12.1-15.1); White Blood Count 5.7 10^3/uL (4.0-10.0)
[2022-09-22 14:35] LABS: Troponin(5th) Baseline 1280 ng/L (0-15)
[2022-09-22] MEDS: iohexol 350 mg/mL 500 mL Btl (per mL) IV (14:40)
[2022-09-22 14:42] LABS: Alanine Aminotransferase 338 U/L (0-41); Albumin Level 4.2 g/dL (3.5-5.2); Alkaline Phosphatase 60 U/L (40-130); Anion Gap 24.8 (5-19); Blood Urea Nitrogen 58 mg/dL (6-20); Calcium 9.6 mg/dL (8.5-10.5); Carbon Dioxide 23 mmol/L (22-29); Chloride 94 mmol/L (98-107); Globulin 2.7 g/dL (1.3-4.6); Glomerular Filtration Rate 4.7 mL/min (90-130); Glucose 117 mg/dL (65-115); Lipase 69 U/L (13-60); Osmolality Calculated 301 mOsm/kg (285-295); Potassium 4.8 mmol/L (3.5-5.1); Sodium 137 mmol/L (136-145); Total Bilirubin 1.2 mg/dL (0.15-1.2); Total Protein 6.9 g/dL (6.6-8.7)
--- NOTE | 2022-09-22 14:52 | USCV_ITS ---
Marlon Dorantes Age: 52 Gender: M : 1970 Exam Date: 09/22/2022 15:24 Ordering Phys: Rupali Salmeron MD Technologist: CHRISTA [place] [facility] [place]: CHEST PAIN BP: 147 / 96 HR: 38 Rhythm: Atrial fibrillation Technical Quality: Adequate MEASUREMENTS (Male / Female) Normal Values 2D ECHO LVOT Diameter 2.0 cm LV Ejection Fraction MOD 2C 17.5 % LV Ejection Fraction 2C AL 19.1 % LA Diameter 4.0 cm LA Width 3.9 cm LA Height 4.7 cm RA Width 4.2 cm RA Height 4.0 cm Aorta at Sinotubular Diameter 2.2 cm IVC Diameter 1.7 cm M-MODE Aortic Annulus Diameter 2.6 cm LA Ao Ratio MM 1.4 MV E Point Septal Separation 2.0 cm DOPPLER AV Peak Velocity 228.5 cm/s LVOT Peak Velocity 76.0 cm/s AV Area Cont Eq vti 1.2 cm squared AV Area Cont Eq pk 1.0 cm squared MV Peak Velocity 120.0 cm/s MV Area PHT 4.0 cm squared MV E' Velocity 58.0 cm/s Mitral E to MV E' Ratio 17.0 Mitral E to LV E' Lateral Ratio 15.4 Mitral E to LV E' Septal Ratio 19.1 TR Peak Velocity 341.6 cm/s TR Peak Gradient 46.7 mmHg TR Mean Velocity 270.6 cm/s TR Mean Gradient 31.2 mmHg TR Velocity Time Integral 103.7 cm TV Peak E Velocity 80.0 cm/s Right Atrial Pressure 3.0 mmHg Pulmonary Artery Systolic Pressu 49.7 mmHg PV Peak Velocity 89.0 cm/s RV Acceleration Time 0.1 s RV Ejection Time 0.3 s RV AcT/ET 0.3 FINDINGS Left Ventricle Dilated left ventricle. Severely decreased left ventricular systolic function. Left ventricular ejection fraction is estimated at 15-20 %. Severe global hypokinesis. Right Ventricle Normal right ventricular size and systolic function. RVSP could not be calculated due to incomplete tricuspid regurgitation velocity profile. Right Atrium Normal right atrial size. Left Atrium Normal left atrial size. Mitral Valve Mild mitral annular calcification. Structurally normal mitral valve. No mitral valve stenosis. Mild somewhat posteriorly directed mitral valve regurgitation. Aortic Valve Mildly thickened and calcified trileaflet aortic valve. Aortic valve sclerosis without stenosis. No aortic valve regurgitation. Tricuspid Valve Structurally normal tricuspid valve. Trace tricuspid valve regurgitation. Pulmonic Valve Structurally normal pulmonic valve. No pulmonary valve stenosis. Trace pulmonary valve regurgitation. Pericardium No pericardial effusion. Aorta Normal size aortic root and proximal ascending aorta. IVC Normal IVC dimension with >50% respiratory change of the inferior vena cava. CONCLUSIONS 1. This is a technically difficult study. Optison was used per protocol. 2. Dilated left ventricle. Severely decreased left ventricular systolic function. Left ventricular ejection fraction is estimated at 15-20 %. Severe global hypokinesis. 3. No change when compared to study dated 09/09/2021. Sun Valle MD (Electronically Signed) Final Date: 22 September 2022 17:34 S
[2022-09-22] MEDS: acetaminophen 325 mg Tablet 650 MG PO (15:00)
[2022-09-22] MEDS: piperacillin-tazobactam 3.375 GM in sodium chloride 0.9% (plus) 50 ML IV (15:02)
[2022-09-22 15:04] LABS: Aspartate Amino Transferase 745 U/L (0-40)
--- NOTE | 2022-09-22 15:12 | ECG_ITS ---
[facility] Test Date: 2022-09-22 Pat Name: Marlon Dorantes Department: Room: Gender: Male Jordan Worker: : 1970 Requested By: Rupali Salmeron Order Number: [id number] Tiffani MD: Vaibhav Gallegos M.D. Measurements Intervals [place] Rate: 101 P: 59 CT: 158 QRS: 3 QRSD: 102 T: 204 QT: 378 QTc: 492 Interpretive Statements SINUS TACHYCARDIA POSSIBLE LEFT ATRIAL ENLARGEMENT [-0.1mV P-WAVE IN V1/V2] LEFT VENTRICULAR HYPERTROPHY AND ST-T CHANGE [VOLTAGE CRITERIA PLUS ST/T ABNORMALITY] Compared to ECG 09/22/2022 13:04:22 No significant changes Electronically Signed On 09-22-2022 18:06:12 MANAGER INVENTORY CONTROL by Vaibhav Gallegos M.D. [id number]
[2022-09-22 15:28] LABS: Lactic Sepsis W/Reflex 1.5 mmol/L (0.5-2.2)
[2022-09-22 15:57] LABS: Troponin 5 2HR Delta 14 ABS# (0-10)
[2022-09-22 15:58] LABS: Troponin 5 2HR 1294 ng/L (0-15)
[2022-09-22 17:06] LABS: Influenza A by IFA Positive (Negative); Influenza B by IFA Negative (Negative)
[2022-09-22] MEDS: perflutren protein-a microsphr 0.22 mg/mL SDV 3 mL IV (17:10)
[2022-09-22] MEDS: heparin 5,000 unit/mL INJ 1 mL 4000 UNIT IVP (17:13)
[2022-09-22] MEDS: heparin drip 25,000 UNIT/500 ML PREMIX 20.83 UNIT IV (17:18)
--- NOTE | 2022-09-22 17:20 | P.HP_ITS ---
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 Today is Tuesday. Patient's last dialysis was on Tuesday. He is also been having intermittent chest pain for last 1 week which has been getting worse along with difficulty in breathing. Denies of having any dysuria, abdominal pain, diarrhea. In the ER patient was found to have a white count of 5.7, hemoglobin of 8.9, platelet of 118, sodium of 137, potassium 94, creatinine of 11.5, baseline troponin of 1280 with a delta of 14 in 2 hours, proBNP of more than 70,000, found to be flu positive with CT chest abdomen pelvis results as below. Patient was started on a nitro and a heparin drip. Examination patient is lying comfortably in bed. States chest pain has resolved. Denies any nausea, vomiting, headache. Vitals are stable. On currently on 4 L saturating 90%. Review of Systems General: Reports: 10 or more systems reviewed and unremarkable except in HPI and below Const: Denies: fever(s), chills, body aches, change in appetite, change in weight, malaise, night sweats, diaphoresis, change in sleep pattern, daytime sleepiness or snoring Eyes: Denies: change in vision, blurry vision, photophobia, eye discomfort or eye discharge ENMT: Denies: throat pain, enlarged tonsils, hoarseness, mouth pain, oral sores, dry mouth, tinnitus, nasal congestion or post nasal drip Card: Denies: chest pain, palpitations, irregular heart rhythm, edema, swelling of feet/ankles, lightheadedness, syncope, pre-syncope, dyspnea on ex ertion, orthopnea, leg pain with exertion or acrocyanosis Resp: Denies: dyspnea, productive cough, non-productive cough, wheezing, stridor, pain on inspiration, change in phlegm color, hemoptysis or chest congestion GI: Denies: abdominal pain, nausea, vomiting, hematemesis, coffee ground emesis, dysphagia, heartburn, diarrhea, constipation, bloating, GI cramping, change in bowel habits, pain on defecation, hematochezia or melena : Denies: flank pain, difficulty urinating, dysuria, urinary frequency, uri nary urgency, urinary hesitancy, urinary dribbling, difficulty starting urination, change in urine stream, nocturia or hematuria Musc: Denies: neck pain, back pain, extremity pain, joint pain, joint swelling, joint redness, joint stiffness or limited range of motion Neuro: Denies: headache(s), numbness in extremities, weakness in extremities, sensory changes, lack of coordination, difficulty walking, frequent falls, dizziness, vertigo, confusion, Slurred speech present, difficulty communicating thoughts or seizure-like activity Psych: Denies: anxiety, depression, mood swings, panic attacks, hopelessness or irritability Endo: Denies: polyuria, polydipsia, tired all the time, cold intolerance, excessive sweating, flushing or heat intolerance Pranav/Lymph: Denies: easy bruising or easy bleeding All/Imm: Denies: tongue swelling, facial swelling or acute wheezing Medications/Allergies Home Medications Medication Instructions Recorded Confirmed Last Taken Type nitroglycerin 0.4 mg sublingual 0.4 mg sublingual Q5M PRN Chest 10/31/19 09/22/22 09/22/22 History tablet (Nitrostat) Pain oxycodone 5 mg tablet 5 mg PO BID PRN Pain 09/07/21 09/22/22 Unknown History pantoprazole 40 mg tablet,delayed 40 mg PO QAM 09/07/21 09/22/22 08/29/22 Hi story release aspirin 81 mg tablet,delayed 81 mg PO QAM #30 tabs 09/11/21 09/22/22 08/29/22 Rx release atorvastatin 40 mg tablet 40 mg PO BEDTIME #90 tabs 09/11/21 09/22/22 08/28/22 Rx clopidogrel 75 mg tablet 75 mg PO BEDTIME #30 tabs 09/11/21 09/22/22 08/25/22 Rx sacubitril 24 mg-valsartan 26 mg 1 tab PO BID #180 tabs 10/14/21 09/22/22 08/29/22 Rx tablet (Entresto) isosorbide mononitrate 60 mg 60 mg PO DAILY #90 tabs 11/25/21 09/22/22 08/26/22 Rx tablet,extended release 24 hr pregabalin 75 mg capsule (Lyrica) 25 mg PO DAILY 04/08/22 09/22/22 08/29/22 History clonazepam 1 mg tablet 1 mg PO PRN PRN Anxiety 07/09/22 09/22/22 Unknown History duloxetine 20 mg capsule,delayed 20 mg PO DAILY 07/09/22 09/22/22 08/29/22 History release metoprolol tartrate 25 mg tablet 25 mg PO BID 07/09/22 09/22/22 08/30/22 History nifedipine 90 mg tablet,extended 90 mg PO DAILY 07/09/22 09/22/22 08/26/22 History release 24 hr prednisone 10 mg tablet 10 mg PO QAM #30 tabs 07/12/22 09/22/22 08/29/22 Rx azathioprine 50 mg tablet See Rx Instructions .Route 08/09/22 09/22/22 08/29/22 Rx .COMPLEX #45 tabs Allergies Allergy/AdvReac Type Severity Reaction Status Date / Time azithromycin Allergy ADR-Chest Verified 08/26/22 10:28 Pain carvedilol AdvReac ADR-Dizzine Verified 08/26/22 10:28 ss PFSH Acute PFSH: Medical History (Updated 09/22/22 @ 18:10 by Chidi Hassan MD) Atherosclerotic heart disease of [place] coronary artery without angina pectoris Benign essential hypertension Cardiomyopathy CHF NYHA class III (symptoms with mildly strenuous activities) Chronic kidney disease with end stage renal failure on dialysis COPD (chronic obstructive pulmonary disease) Diabetes mellitus Dialysis AV fistula malfunction DVT (deep venous thrombosis) Dyslipidemia ESRD (end stage renal disease) ESRD (end stage renal disease) Hemochromatosis Hemoptysis Idiopathic pulmonary hemosiderosis Ischemic cardiomyopathy Mixed hyperlipidemia Non-ST elevation (NSTEMI) myocardial infarction Pneumonia Pulmonary hypertension Sepsis Surgical History Fistula Left Wrist H/O elbow surgery H/O hand surgery H/O neck surgery History of back surgery History of intravascular stent placement History of thoracotomy S/P hemodialysis catheter insertion (09/17/21) Family History Grandmother , In her 50's Myocardial infarction Father Diabetes Mother Diabetes Social History Smoking and tobacco status: former smoker Quit status (tobacco): has quit using tobacco Year quit tobacco: 1999 - 2PPD x 20 Years Second hand smoke exposure: No Alcohol intake: current Alcohol intake frequency: holidays/special occasions only Lives independently: Yes Household members: spouse Marital status: Current occupational status: disabled History of recent travel: No Current gender identity: Male Vitals/I&O/Wt Last Vital Signs Temp 98.3 F 09/22/22 12:44 Pulse 95 09/22/22 17:00 Resp 25 H 09/22/22 17:00 BP 147/96 09/22/22 17:00 Pulse Ox 90 09/22/22 17:00 O2 Del Method 09/22/22 16:45 O2 Flow Rate 4 09/22/22 16:45 09/22/22 09/22/22 09/22/22 06:59 14:59 22:59 Intake Total 50 / 50 Balance 50 / 50 Weight last 48 hrs Weight 86.806 kg Physical Exam Narrative: General: No acute distress, AO x3, resting comfortably in bed, on 4 L nasal cannula, chronically ill-appearing HEENT: PERRLA, pupils bilaterally equal and reactive Chest: Normal vesicular breath sounds, no added sounds, equal good air entry bilaterally CVS: S1-S2 regular, pansystolic murmur at apex radiating to axilla, no tachycardia, no gallops, no rubs Abdomen: Soft, nontender, no organomegaly, bowel sounds present Neuro: No focal deficits, no facial deformity, AO x3, power 5/5 in all limbs Data 09/22/22 13:51 09/22/22 13:51 Micro: Microbiology 09/22/22 13:51 Blood Culture - Preliminary Blood SPECIMEN COLLECTED 09/22/22 14:00 Blood Culture - Preliminary Blood SPECIMEN COLLECTED A&P Assessment and plan (1) Non-ST elevation (NSTEMI) myocardial infarction: Baseline troponin more than 1200. Continue with aspirin, Plavix, statin, beta-luis carlos. Check echocardiogram. Cycle troponins. Continue with heparin and nitro drip. Cardiology consulted from the ER. Plan for cardiac cath within next 24 hours. N.p.o. after midnight. Check A1c, lipid panel. (2) Pneumonia: Evident on CT scan. Check sputum culture, procalcitonin, MRSA swab. Blood cultures sent from the ER. Empirically start patient on vancomycin and Zosyn. Will de-escalate as per culture results. Patient is flu positive. COVID-19 PCR negative. Start on Tamiflu 30 mg stat followed by 30 mg post each dialysis session for next 5 days (3) Influenza: Continue home dose of prednisone. If needed we will switch to Solu-Medrol. DuoNebs every 6 hour, budesonide twice daily. Oxygen supplementation keeping saturation over 90% (4) Chronic kidney disease with end stage renal failure on dialysis: Continue dialysis as per nephrology. (5) Ischemic cardiomyopathy: Echocardiogram done shows an EF of 15-20 % with severe global LV hypokinesia, mild MR. Dialysis for pulmonary edema. Continue to monitor. (6) Hemochromatosis: Qualifiers: Hemochromatosis type: unspecified Qualified Code(s): E83.119 - Hemochromatosis, unspecified (7) Hemoptysis: Plan Continue other chronic medications including Klonopin, duloxetine, oxycodone IR, pregabalin. Full code. Renal dialysis diet, n.p.o. after midnight. Protonix for PUD prophylaxis Heparin will suffice for DVT prophylaxis. Attestations Medical Necessity Statement*: Admission for more than 2 midnights for management of non-ST ovation [place], sepsis secondary to pneumonia, flu positive Critical Care Time: The high probability of a clinically significant, sudden or life threatening deterioration of the patient's [cardiac, renal, ID, pu lmonary] system(s) required my full and direct attention, intervention and personal management. The critical care time is as shown. This time is in addition to time spent performing any reported procedures but includes the following: [x] Data and vital sign review and interpretation [x] Patient assessment, examination and intervention [x] Documentation [x] Medication orders and management Critical Care Time (min): 90 Coding Level of Care Code Acute Superintendent Track for [facility] Fwd Diagnoses Non-ST elevation (NSTEMI) myocardial infarction I21.4 Pneumonia J18.9 Influenza J11.1 Chronic kidney disease with end stage renal failure on dialysis N18.6; Z99.2 Ischemic cardiomyopathy I25.5 Hemochromatosis E83.119 Hemochromatosis type: unspecified Hemoptysis R04.2
[2022-09-22] MEDS: nitroglycerin drip 50 MG/250 ML PREMIX IV (18:06)
[2022-09-22 18:26] LABS: Procalcitonin 3.37 ng/mL (0-0.5); Thyroid Stimulating Hormone 5.92 uIU/mL (0.27-4.20)
--- NOTE | 2022-09-22 18:43 | PM.CONSULT ---
Providers/Reason For Consult Consulting Physician/Specialty*: Dr. Valle, Cardiology Reason for Consult*: Chest pain, NSTEMI Attending Physician: Chidi Hassan MD Primary Care Provider: Michael Eubanks DO History of Present Illness History of Present Illness Marlon Dorantes is a 52 year old male with history of coronary artery disease, status post multiple PCI's, ischemic cardiomyopathy (LVEF=20%), end-stage renal disease, on hemodialysis and multiple other medical problems presented to the emergency room today with complaints of burning chest pain since Tuesday with SOB.? He was found to have elevated troponin T ~1280--> 1294--> 1523.? Patient was in his baseline state of health up until Tuesday when he started having chest pain.? He was drowsy at the time of eval and did not provide much details.? He had his dialysis Tuesday. He was found to be febrile and tachypneic in ER. CTA chest with no PE. Flu +. Sick contact his son. He also complains of URI like symptoms last few days. Some concern for hemoptysis at home but none noted in ER. Last C in 08/2021.?He had the IFR of the ostial/proximal circumflex artery and diag/LAD lesion.? This was within normal limits. Patent LAD and ramus stents (placed in same hospitalization). He also underwent balloon angioplasty of diagonal lesion. Review of Systems General: Reports: 10 or more systems reviewed and unremarkable except in HPI and below Const: Reports: fever(s), body aches and malaise; Denies: chills, change in appetite or change in weight Eyes: Denies: change in vision or eye discharge ENMT: Denies: throat pain, enlarged tonsils, hoarseness, mouth pain, oral sores, dry mouth, tinnitus, nasal congestion or post nasal drip Card: Reports: chest pain and dyspnea on exertion; Denies: palpitations, irregular heart rhythm, edema, lightheadedness, syncope, orthopnea or leg pain with exertion Resp: Denies: dyspnea, productive cough, non-productive cough, wheezing, stridor, pain on inspiration, change in phlegm color, hemoptysis or chest congestion GI: Denies: abdominal pain, nausea, vomiting, hematemesis, coffee ground emesis, dysphagia, heartburn, diarrhea, constipation, bloating, GI cramping, change in bowel habits, hematochezia or melena : Denies: flank pain, difficulty urinating, dysuria, urinary frequency, urinary urgency, urinary hesitancy, urinary dribbling, difficulty starting urination, change in urine stream, nocturia or hematuria Musc: Denies: neck pain, back pain, extremity pain, joint pain, joint swelling, joint redness, joint stiffness or limited range of motion Neuro: Denies: headache(s), numbness in extremities, weakness in extremities, sensory changes, lack of coordination, difficulty walking, frequent falls, dizziness, vertigo, confusion, Slurred speech present, difficulty communicating thoughts or seizure-like activity Psych: Denies: anxiety, depression, mood swings, panic attacks, hopelessness or irritability Endo: Denies: polyuria, polydipsia, tired all the time, cold intolerance, excessive sweating, flushing or heat intolerance Pranav/Lymph: Denies: easy bruising or easy bleeding All/Imm: Denies: tongue swelling, facial swelling or acute wheezing Medications/Allergies Home Medications Medication Instructions Recorded Confirmed Last Taken Type nitroglycerin 0.4 mg sublingual 0.4 mg sublingual Q5M PRN Chest 10/31/19 09/22/22 09/22/22 History tablet (Nitrostat) Pain oxycodone 5 mg tablet 5 mg PO BID PRN Pain 09/07/21 09/22/22 Unknown History pantoprazole 40 mg tablet,delayed 40 mg PO QAM 09/07/21 09/22/22 08/29/22 History release aspirin 81 mg tablet,delayed 81 mg PO QAM #30 tabs 09/11/21 09/22/22 08/29/22 Rx release atorvastatin 40 mg tablet 40 mg PO BEDTIME #90 tabs 09/11/21 09/22/22 08/28/22 Rx clopidogrel 75 mg tablet 75 mg PO BEDTIME #30 tabs 09/11/21 09/22/22 08/25/22 Rx sacubitril 24 mg-valsartan 26 mg 1 tab PO BID #180 tabs 10/14/21 09/22/22 08/29/22 Rx tablet (Entresto) isosorbide mononitrate 60 mg 60 mg PO DAILY #90 tabs 11/25/21 09/22/2208/26/22 Rx tablet,extended release 24 hr pregabalin 75 mg capsule (Lyrica) 25 mg PO DAILY 04/08/22 09/22/22 08/29/22 History clonazepam 1 mg tablet 1 mg PO PRN PRN Anxiety 07/09/22 09/22/22 Unknown History duloxetine 20 mg capsule,delayed 20 mg PO DAILY 07/09/22 09/22/22 08/29/22 History release metoprolol tartrate 25 mg tablet 25 mg PO BID 07/09/22 09/22/22 08/30/22 History nifedipine 90 mg tablet,extended 90 mg PO DAILY 07/09/22 09/22/22 08/26/22 History release 24 hr prednisone 10 mg tablet 10 mg PO QAM #30 tabs 07/12/22 09/22/22 08/29/22 Rx azathioprine 50 mg tablet See Rx Instructions .Route 08/09/22 09/22/22 08/29/22 Rx .COMPLEX #45 tabs Allergies Allergy/AdvReac Type Severity Reaction Status Date / Time azithromycin Allergy ADR-Chest Verified 08/26/22 10:28 Pain carvedilol AdvReac ADR-Dizzine Verified 08/26/22 10:28 ss Current Medications Generic Name Dose Route Start Last Admin Trade Name Freq PRN Reason Stop Dose Admin Nitroglycerin/Dextrose 50 mg in 250 mls @ 0 mls/hr 09/22/22 14:45 09/22/22 18:06 Nitroglycerin Drip IV 5 mcg/min .Q0M JANNET 1.5 mls/hr Administration Protocol Per Protocol Heparin Sodium/Sodium Chloride 25,000 unit in 500 mls @ 20.833 mls/hr 09/22/22 16:15 09/22/22 17:18 Heparin Drip IV 12 unit/kg/hr .Q24H JANNET 20.83 mls/hr Administration 12 UNIT/KG/HR Piperacillin Sod/Tazobactam 50 mls @ 12.5 mls/hr 09/22/22 18:15 09/22/22 18:13 Sod 3.375 gm/ Sodium Chloride IV Not Given Q12H JANNET Nitroglycerin 0.4 mg 09/22/22 13:14 09/22/22 13:37 Nitroglycerin 0.4 Mg Sublingual Tablet SUBLINGUAL 0.4 mg Q5M PRN Administration CHEST PAIN PFSH Acute PFSH: Medical History (Updated 09/22/22 @ 18:10 by Chidi Hassan MD) Atherosclerotic heart disease of [place] coronary artery without angina pectoris Benign essential hypertension Cardiomyopathy CHF NYHA class III (symptoms with mildly strenuous activities) Chronic kidney disease with end stage renal failure on dialysis COPD (chronic obstructive pulmonary disease) Diabetes mellitus Dialysis AV fistula malfunction DVT (deep venous thrombosis) Dyslipidemia ESRD (end stage renal disease) ESRD (end stage renal disease) Hemochromatosis Hemoptysis Idiopathic pulmonary hemosiderosis Ischemic cardiomyopathy Mixed hyperlipidemia Non-ST elevation (NSTEMI) myocardial infarction Pneumonia Pulmonary hypertension Sepsis Surgical History Fistula Left Wrist H/O elbow surgery H/O hand surgery H/O neck surgery History of back surgery History of intravascular stent placement History of thoracotomy S/P hemodialysis catheter insertion (09/17/21) Family History Grandmother , In her 50's Myocardial infarction Father Diabetes Mother Diabetes Social History Smoking and tobacco status: former smoker Quit status (tobacco): has quit using tobacco Year quit tobacco: 1999 - 2PPD x 20 Years Second hand smoke exposure: No Alcohol intake: current Alcohol intake frequency: holidays/special occasions only Lives independently: Yes Household members: spouse Marital status: Current occupational status: disabled History of recent travel: No Current gender identity: Male Vitals/I&O/Wt Last Vital Signs Temp 98.3 F 09/22/22 12:44 Pulse 95 09/22/22 17:00 Resp 25 H 09/22/22 17:00 BP 147/96 09/22/22 17:00 Pulse Ox 90 09/22/22 17:00 O2 Del Method 09/22/22 16:45 O2 Flow Rate 4 09/22/22 16:45 09/22/22 09/22/22 09/22/22 06:59 14:59 22:59 Intake Total 50 / 50 Balance 50 / 50 Weight last 48 hrs Weight 191 lb 6 oz Physical Exam Narrative: GENERAL: Averagely built and averagely nourished in no acute distress, drowsy HEENT: Extraocular movement intact. No pallor or icterus. NECK: central trachea, No JVD, No carotid bruit. CARDIOVASCULAR SYSTEM: S1-S2 regular. No S3 or S4 present. No murmur rubs or gallops. RESPIRATORY SYSTEM: Chest clear to auscultation. No wheezes rhonchi or rubs heard. No use of accessory muscles. ABDOMEN: Soft, nontender and nondistended. Normal bowel sounds present. EXTREMITIES: No cyanosis or edema. No signs of chronic venous insufficiency. MACHINE PRESERVATIVE FILLER: Patient is alert oriented ?3. No focal neurological deficits. SKIN: Normal turgor and temperature. PSYCH: Normal insight and judgment. Data 09/22/22 13:51 09/22/22 13:51 Micro: Microbiology 09/22/22 13:51 Blood Culture - Preliminary Blood SPECIMEN COLLECTED 09/22/22 14:00 Blood Culture - Preliminary Blood SPECIMEN COLLECTED A&P Assessment and plan (1) Non-ST elevation (NSTEMI) myocardial infarction: Plan for [facility] tomorrow based on symptoms. continue NTG drip. echo findings noted. No change in LV function (LV function remains severely decreased) Case discussed with Dr. Gallegos as well. (2) Ischemic cardiomyopathy: (3) Chronic kidney disease with end stage renal failure on dialysis: (4) Influenza: (5) Hemoptysis: Consult Attestations Time Spent in Patient Care: 16 - 35 minutes Coding Level of Care Code Acute Surgical Territory Manager for [facility] Fwd Diagnoses Non-ST elevation (NSTEMI) myocardial infarction I21.4 Ischemic cardiomyopathy I25.5 Chronic kidney disease with end stage renal failure on dialysis N18.6; Z99.2 Influenza J11.1 Hemoptysis R04.2
--- NOTE | 2022-09-22 19:17 | ECG_ITS ---
[facility] Test Date: 2022-09-22 Pat Name: Marlon Dorantes Department: Room: [facility]09 Gender: Male Associate Professor Of Radiology: : 1970 Requested By: Rupali Salmeron Order Number: [id number] Tiffani MD: Sun Valle M.D. Measurements Intervals [place] Rate: 91 P: 56 GA: 171 QRS: 23 QRSD: 101 T: 228 QT: 399 QTc: 491 Interpretive Statements SINUS RHYTHM POSSIBLE LEFT ATRIAL ENLARGEMENT [-0.1mV P-WAVE IN V1/V2] POSSIBLE ANTERIOR MYOCARDIAL INFARCTION , OF INDETERMINATE AGE MODERATE T-WAVE ABNORMALITY, CONSIDER LATERAL ISCHEMIA MODERATE T-WAVE ABNORMALITY, CONSIDER INFERIOR ISCHEMIA Compared to ECG 09/22/2022 15:18:43 Myocardial infarct finding now present T-wave abnormality now present Possible ischemia now present Sinus tachycardia no longer present Left ventricular hypertrophy no longer present ST (T wave) deviation no longer present Electronically Signed On 09-25-2022 8:01:26 INSURANCE CASE MANAGER by Sun Valle M.D. [id number]
[2022-09-22 19:56] LABS: Partial Thromboplastin Time 131.4 SECONDS (23.9-36.7)
[2022-09-22 19:58] LABS: Troponin 5 6HR 1523 ng/L (0-15)
[2022-09-22 19:59] LABS: Troponin 5 6HR Delta 243 ng/L (0-12)
[2022-09-22] MEDS: morphine 4 mg/mL SDV 1 mL 2 MG IVP (20:45)
[2022-09-22] MEDS: ondansetron 2 mg/ML SDV 2 mL 4 MG IVP ×2 (20:54→20:55)
[2022-09-22 21:03] LABS: Estmated Average Glucose 85; Hemoglobin A1C 4.6 % (4.0-6.0)
[2022-09-22 23:07] LABS: Partial Thromboplastin Time 113.3 SECONDS (23.9-36.7)
[2022-09-22] MEDS: clopidogrel 75 mg Tablet PO (23:08)
[2022-09-22] MEDS: atorvastatin 40 mg Tablet PO (23:08)
[2022-09-22] MEDS: metoprolol tartrate 25 mg Tablet PO (23:08)
[2022-09-23] VITALS (26 sets, daily range): BP systolic 42–171; BP diastolic 21–95; PULSE 41–121; RESP 6–43; O2SAT 83–100; BMI 27.3
[2022-09-23] MEDS: vancomycin 1,250 MG/250 ML PIGGYBACK 200 MG IV (00:29)
[2022-09-23] MEDS: morphine 4 mg/mL SDV 1 mL 2 MG IVP (01:00)
--- NOTE | 2022-09-23 02:13 | ECG_ITS ---
[facility] Test Date: 2022-09-23 Pat Name: Marlon Dorantes Department: Room: [facility]09 Gender: Male Song Writer: : 1970 Requested By: Kei Solitario Order Number: [id number] Tiffani MD: Sun Valle M.D. Measurements Intervals [place] Rate: 92 P: 0 CO: 0 QRS: -76 QRSD: 200 T: 83 QT: 486 QTc: 603 Interpretive Statements SINUS RHYTHM WITH SHORT CO INTERVAL WITH PAC'S LEFT AXIS DEVIATION [QRS AXIS < -30] LEFT BUNDLE BRANCH BLOCK Compared to ECG 09/22/2022 19:17:40 Left-axis deviation now present T-wave abnormality no longer present Possible ischemia no longer present Electronically Signed On 09-25-2022 8:00:56 BIOMEDICAL INSTRUMENT TECHNICIAN by Sun Valle M.D. [id number]
[2022-09-23 02:35] LABS: Adenovirus Not Detected (NOT DETECT); Chlamydia Pneumoniae Not Detected (NOT DETECT); Coronavirus 229E,HKU1,NL63,OC4 Not Detected (NOT DETECT); Human Metapneumovirus Not Detected (NOT DETECT); Human Rhinovirus/Enterovirus Not Detected (NOT DETECT); Influenza A Detected (NOT DETECT); Influenza A H1 Not Detected (NOT DETECT); Influenza A H1-2009 Detected (NOT DETECT); Influenza A H3 Not Detected (NOT DETECT); Influenza B Not Detected (NOT DETECT); Mycoplasma Pneumoniae Not Detected (NOT DETECT); Parainfluenza Virus Type 1 Not Detected (NOT DETECT); Parainfluenza Virus Type 2 Not Detected (NOT DETECT); Parainfluenza Virus Type 3 Not Detected (NOT DETECT); Parainfluenza Virus Type 4 Not Detected (NOT DETECT); Respiratory Syncytial Virus A Not Detected (NOT DETECT); Respiratory Syncytial Virus B Not Detected (NOT DETECT); SARS-COV-2 Not Detected (NOT DETECT)
[2022-09-23 02:37] LABS: Influenza A Detected (NOT DETECT); Influenza A H1 Not Detected (NOT DETECT); Influenza A H1-2009 Detected (NOT DETECT); Influenza A H3 Not Detected (NOT DETECT); Influenza B Not Detected (NOT DETECT); Results from Genmark
--- NOTE | 2022-09-23 02:58 | ECG_ITS ---
[facility] Test Date: 2022-09-23 Pat Name: Marlon Dorantes Department: Room: [facility]09 Gender: Male Research And Insights Executive: : 1970 Requested By: Kei Solitario Order Number: [id number] Tiffani MD: Sun Valle M.D. Measurements Intervals [place] Rate: 109 P: 85 NM: 252 QRS: 214 QRSD: 216 T: 74 QT: 439 QTc: 592 Interpretive Statements SINUS TACHYCARDIA WITH FIRST DEGREE AV BLOCK RIGHT ATRIAL ENLARGEMENT [0.3mV P-WAVE] LEFT ATRIAL ENLARGEMENT [-0.15mV P-WAVE IN V1/V2] INDETERMINATE AXIS INTRAVENTRICULAR CONDUCTION DELAY [130+ ms QRS DURATION] Compared to ECG 09/23/2022 02:13:00 First degree AV block now present Atrial abnormality now present Indeterminate axis now present Atrial fibrillation no longer present Left-axis deviation no longer present Electronically Signed On 09-25-2022 7:59:33 PHARMACIST CRITICAL CARE by Sun Valle M.D. [id number]
[2022-09-23] MEDS: amiodarone 50 mg/mL SDV 3 mL 150 MG IVP (03:05)
[2022-09-23] MEDS: hydrocortisone 100 mg/2 mL SDV IVP (03:09)
[2022-09-23 03:11] LABS: Glucose Point of Care 27 mg/dL (70-110)
[2022-09-23 03:11] LABS: Glucose Point of Care 27 mg/dL (70-110)
[2022-09-23 03:25] LABS: Glucose Point of Care 93 mg/dL (70-110)
[2022-09-23] MEDS: propofol 10 mg/mL SDV 20 mL 100 MG IVP (03:46)
[2022-09-23] MEDS: vecuronium 10 mg SDV IVP (03:46)
--- NOTE | 2022-09-23 03:59 | W.PM.EVENTAC ---
Event Notes Attestations Time Spent in Patient Care: I was called to evaluate the patient for change in his rhythm When I arrived patient was arousable to verbal stimuli he was able to tell me his name and date of , He was not in any chest pain Breathing was 30/min His nitro drip was turned off because now he was getting hypotensive Patient was awake however drowsy MAP 66 Mottling of toes noted S1, S2 variable with tachycardia Patient was able to follow commands however very lethargic He was on 15 L nonrebreather mask Blood sugar 27 mg/dL I gave him 2 Amps of D50, 100 mg of hydrocortisone Wide QRS tachycardia with pulse Amiodarone 150mg IV bolus was pushed x1 which improved his rhythm to normal sinus His labs, admission note and consultation notes were reviewed Potassium 4.8, magnesium 2 Morning labs are pending I requested nurse to put him on amiodarone drip, I was preparing to put a central line when he started getting bradycardic, I gave him 2 mg of atropine, then he lost his pulse CODE BLUE was called, chest compressions were continued for about 2 minutes, 1 dose of 1 mg epinephrine administered, patient was intubated by myself, endotracheal tube was visualized passing through the vocal cords, color change noted, O2 saturation improved, right IJ central line was placed, patient was put on fentanyl, Levophed along amiodarone and heparin, I also given 1 dose of calcium gluconate is not sure about CODE STATUS, she is stating that she would like to discuss with other family members and then get back to us
[2022-09-23] MEDS: calcium gluconate 0.9% NaCL 1 GM/50 ML PREMIX IV (04:07)
--- NOTE | 2022-09-23 04:28 | PM.ACPR ---
Procedure/Consent Consent: Additional Consent Information: Emergency procedures Procedure Narrative: Patient was intubated by myself, right IJ was placed by Dr. Garcia Acute Procedures Central Line Placement: Right IJ: Time out performed: Yes Patient placed on monitor/pulse ox: Yes MD prep: mask, gown and gloves Central line prep: Povidone-Iodine 1%, Chlorhexidine scrub and sterile drapes applied Local anesthesia used: other anesthetic Ultrasound used for placement: Yes Central line lumen inserted: triple Post procedure: sutured in place, good blood return, all ports aspirated, flushed, capped and sterile dressing applied Patient tolerated procedure: well Complications: none and other Additional comments: Central line was placed after ROSC was obtained after Dr. Jose JOSHUA placed right IJ Intubation: Time out performed: Yes Sedative: none Laryngoscope: fiber optic video scope Assist device used: fiber optic device ET tube size: 8 Tube secured depth (cm): 22 Tube secured location: lips Tube placement confirmation: visualized tube passing through cords, equal breath sounds bilaterally, confirmation by capnometry and color change noted Patient tolerated procedure: well Intubation complications: none Additional comments: Intubation was done during CODE BLUE sedation was not given As soon as we were able to oxygenate him with endotracheal tube patient open his eyes tried to grab the endotracheal tube Hypothermia protocol was not started
[2022-09-23 04:33] LABS: Hematocrit 30.8 % (42.0-52.0); Hemoglobin 8.7 g/dL (11.7-16.6); Mean Corpuscular HGB Conc 28.2 g/dL (30.0-36.0); Mean Corpuscular Hemoglobin 28.9 pg (28.0-34.0); Mean Corpuscular Volume 102.3 fl (80-94); Mean Platelet Volume 10.5 fL (7.4-10.4); Platelet Count 133 10^3/cmm (130-400); Red Blood Count 3.01 10^6/uL (4.1-5.3); Red Cell Distribution Width 17.9 % (12.1-15.1); White Blood Count 13.2 10^3/uL (4.0-10.0)
--- NOTE | 2022-09-23 04:38 | XRR_ITS ---
PROCEDURE INFORMATION: Exam: XR Chest Exam date and time: 09/23/2022 4:00 AM Age: 52 years old Clinical indication: Device placement; Ett placement (vent status); Patient HX: Check central line and et placement post code blue. Flu a positive. TECHNIQUE: Imaging protocol: Radiologic exam of the chest. Views: 1 view. COMPARISON: CR XR chest 1V portable [id number] 09/22/2022 1:40 PM FINDINGS: Tubes, catheters and devices: Interval placement of an endotracheal tube is seen in the midline with tip 4.4 cm from the leandro. Interval placement of a right internal jugular central venous catheter with tip overlying the right atrium. Lungs: Small lung volumes. Mild perihilar interstitial opacities with some coalescence in the right lung base. This may represent asymmetric pulmonary edema. Early right basilar pneumonia cannot be excluded. Unchanged small left pleural effusion. Pleural spaces: No pneumothorax. Heart/Mediastinum: Mild enlargement of the cardiac silhouette on the exam. Left coronary artery vascular stent is seen. There is a mildly tortuous thoracic aorta. The trachea is midline. Bones/joints: No acute osseous abnormalities seen. Soft tissues: Multiple external densities are seen overlying the chest, limiting assessment. XR/XR chest 1V portable [id number] IMPRESSION: 1. Endotracheal tube and right internal jugular central venous catheter, as noted above. 2. Small lung volumes. Mild perihilar interstitial opacities with some coalescence in the right lung base. This may represent asymmetric pulmonary edema. Early right basilar pneumonia cannot be excluded. Unchanged small left pleural effusion. 3. Mild enlargement of the cardiac silhouette on this chest radiograph.
[2022-09-23 04:55] LABS: Albumin Level 3.6 g/dL (3.5-5.2); Alkaline Phosphatase 72 U/L (40-130); Blood Urea Nitrogen 60 mg/dL (6-20); Calcium 7.5 mg/dL (8.5-10.5); Carbon Dioxide 12 mmol/L (22-29); Chloride 93 mmol/L (98-107); Globulin 2.3 g/dL (1.3-4.6); Glomerular Filtration Rate 4.5 mL/min (90-130); Magnesium 2.3 mg/dL (1.7-2.3); Osmolality Calculated 304 mOsm/kg (285-295); Phosphorus 9.6 mg/dL (2.5-4.5); Sodium 136 mmol/L (136-145); Total Bilirubin 2.5 mg/dL (0.15-1.2); Total Protein 5.9 g/dL (6.6-8.7)
[2022-09-23 04:57] LABS: Alanine Aminotransferase 1491 U/L (0-41); Aspartate Amino Transferase 2500 U/L (0-40); Glucose 196 mg/dL (65-115)
[2022-09-23] MEDS: piperacillin-tazobactam 3.375 GM in sodium chloride 0.9% (plus) 50 ML IV (05:01)
[2022-09-23 05:03] LABS: Chol HDL Ratio 4.29 mg/dL (1.0-5.00); Cholesterol 90 mg/dL (0-200); LDL HDL Ratio 1.95 RATIO (0.00-3.22); Triglycerides 140 mg/dL (0-150)
[2022-09-23 05:08] LABS: Glucose Point of Care 115 mg/dL (70-110)
[2022-09-23 05:08] LABS: Glucose Point of Care 190 mg/dL (70-110)
[2022-09-23 05:11] LABS: HDL Cholesterol 21 mg/dL (60-100); LDL Cholesterol Calculated 41 mg/dL (50-129)
[2022-09-23 05:23] LABS: Total Cells Counted 100 (0-100)
[2022-09-23 05:24] LABS: Absolute Segmented Neutrophil 12.1 10/cmm (1.6-7.1); Band Neutrophils Absolute 0.3 10^3/cmm (0.0-1.2); Eosinophils 0 %; Lymphocytes 2 %; Lymphocytes Absolute 0.3 10^3/cmm (1.2-3.4); Monocytes Absolute 0.5 10^3/cmm (0.1-0.6); Segmented Neutrophils 92 %
[2022-09-23 05:27] LABS: Absolute Neutrophil 12.4 10^3/cmm (1.4-6.5); Anisocytosis 1+; Platelet Estimate Normal (Normal)
[2022-09-23 06:06] LABS: ABG PCO2 43.6 mmHg (35-45); Alveolar-Arterial Oxygen Gradi 44.6 mmHg (5-10); Arterial Blood Gas Hematocrit 30.9 % (42-52); Base Excess ABG -14.4 mmol/L (-2.0-2.0); Blood Gas Allen Test Pos; Blood Gas Operator Identificat JB; Blood Gas Sample Site Radial, right; Blood Gas Sample Type Arterial; Carboxyhemoglobin 0.9 %THgb (0.4-20.1); HCO3 ABG 14.2 mmol/L (22-26); HGB O2 Sat 96.9 % (95-100); Methemoglobin 1.9 % (0.4-1.5); Oxygen Device VENT; Oxygen Saturation ABG 99.6; Potassium Level - ABG 7.1 mmol/L (3.5-5.0); Total Hemoglobin 10.1 g/dL (14-18)
[2022-09-23 06:07] LABS: ABG PH Result 7.12 (7.35-7.45)
--- NOTE | 2022-09-23 06:22 | XRR_ITS ---
PROCEDURE INFORMATION: Exam: XR Chest Exam date and time: 09/23/2022 6:33 AM Age: 52 years old Clinical indication: Device placement; Ett placement (vent status); Additional info: Confirm placement of et tube, et replaced, reverify placement TECHNIQUE: Imaging protocol: Radiologic exam of the chest. Views: 1 view. COMPARISON: CR XR chest 1V portable [id number] 09/23/2022 4:00 AM FINDINGS: Tubes, catheters and devices: Endotracheal tube is seen in the midline with tip 5.5 cm from the leandro on the current exam. Unchanged right internal jugular central venous catheter is seen. Lungs: Increased lung volumes with decreased perihilar interstitial opacities. Residual mild bibasilar interstitial/airspace opacities. Unchanged layering small left pleural effusion. Pleural spaces: Suspected tiny right pleural effusion. No pneumothorax. Heart/Mediastinum: The heart size unchanged. The trachea is midline. There is a mildly tortuous thoracic aorta. Bones/joints: No acute osseous abnormalities seen. Postsurgical changes of the mid cervical region are seen. Soft tissues: Multiple external densities are seen overlying the chest, limiting assessment. XR/XR chest 1V portable [id number] IMPRESSION: 1. Endotracheal tube and right internal jugular central venous catheter, as noted above. 2. Increased lung volumes with decreased perihilar interstitial opacities. Residual mild bibasilar interstitial/airspace opacities. Unchanged layering small left pleural effusion.
--- NOTE | 2022-09-23 06:31 | PC.NURSE ---
Updated Dr. Solitario about MAP of 49, maxed out on current meds, bolus infused, no new orders at this time.
[2022-09-23 07:40] LABS: Partial Thromboplastin Time 68.6 SECONDS (23.9-36.7)
[2022-09-23] MEDS: ipratropium-albuterol 3 mL Neb INHALATION (09:48)
--- NOTE | 2022-09-23 11:03 | PC.NURSE ---
Fentanyl wasted 96.292 witnessed by Dalia Mari RN
--- NOTE | 2022-09-23 11:06 | PC.NURSE ---
Addendum entered by Yuli Burton RN 09/23/22 11:40: Dr. Hassan notified and aware of patients expiration who asked nurse to notify family of patients status Original Note: Patient at 1103. Called and updated her that patient is and asked what home family would prefer, said she would call back.
--- NOTE | 2022-09-23 12:41 | PC.CHAP ---
Pastoral Care Encounter/Spiritual Assessment Type of Contact [] Declined patternmaker bench visit [] Patient/Family/Request visit [] Outpatient visit [] Follow-up visit [] Physician referral [] Code/Alert [x] Routine visit [] Staff referral [] Actively dying [] Patient sleeping [] Family support [] [] Out of room [] Palliative care [] [] Receiving care in room [] Pre-surgical visit [] Trauma [] Long length of stay [x] ICU visit [x] Other: code blue 3.35 AM and again 4:08... this AM.. Relational/Emotional Strength [] Patient feels connected with others/family/visitors/staff [] Distress [] Loneliness/isolation [] Abandonment Spirituality of Patient [] Person of Ashley [] Attends Taoism of their Ashley [] Believes in Prayer [] Reads Bible or Sikhism materials [] There are Spiritual issues to be addressed Deaf Teacher Interventions [x] Prayer [] Active listening [] Non-anxious presence [] Spiritual/emotional support [] Crisis/trauma care [] Spiritual counseling [] Bereavement support [] Provided bereavement packet [] Provided Bible/devotional materials [] Provided toy/stuffed animal, coloring book to patient or family member [] Provided Communion [] Anointing/Dickson [] Salvation [x] Completed spiritual assessment [] Other: Impact on Illness or Injury [] Angry [] Fearful [] Anxious [] Often cries [] Exhaustion [] Unable to work [] Unable to attend quaker [] Unable to walk/stand [] Unable to read [] Unable to drive [] Unable to eat/drink [] Unable to sleep [] Unable to be with family [] Patient intubated [] Other: Summary Time spent with patient
--- NOTE | 2022-09-23 13:05 | PM.DDS ---
Discharge Providers DDS Date of Admission: 09/22/22 17:53 Date Summary Completed: 09/23/22 Attending Provider at Admission: Chidi Hassan MD Time of : 11:03 Attending Provider at Discharge: Chidi Hassan MD Consults: Cardiology: Dr. 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 Today is Tuesday.? Patient's last dialysis was on Tuesday.? He is also been having intermittent chest pain for last 1 week which has been getting worse along with difficulty in breathing.? Denies of having any dysuria, abdominal pain, diarrhea. In the ER patient was found to have a white count of 5.7, hemoglobin of 8.9, platelet of 118, sodium of 137, potassium 94, creatinine of 11.5, baseline troponin of 1280 with a delta of 14 in 2 hours, proBNP of more than 70,000, found to be flu positive with CT chest abdomen pelvis results as below. Patient was started on a nitro and a heparin drip. Examination patient is lying comfortably in bed.? States chest pain has resolved.? Denies any nausea, vomiting, headache.? Vitals are stable.? On currently on 4 L saturating 90%. Summary Date and Time of Date of : 09/23/22 Time of : 11:03 Summary Summary: Patient was admitted to the hospital further evaluation and management. He was admitted to ICU and started on heparin and nitro drip. Cardiology and telemetry nephrology were recommended. Plan as per cardiology was to do cardiac angiogram the next morning as patient was not having any active chest pain. Echocardiogram was done which was reported as an EF of 15 to 20% with severe global hypokinesia and no changes as per last echocardiogram 1 year ago. He was started on broad-spectrum antibiotics for possible pneumonia. As patient was awaiting cardiac angiogram he developed ventricular tachycardia which was treated as per ACLS protocol and required chest compressions. Post resuscitation for the first time he developed cardiogenic shock and required multiple pressors. Unfortunately patient developed bradycardia and asystole for which she required further cycles of CPR. Further goals of care discussions were done in detail by the overnight physician with patient's family and patient was made comfort status only. CODE STATUS was discussed and confirmed again with patient's /DPOA in the morning. As pressors are being weaned off patient developed asystole and at 11:03 AM on 09/23/2022 in comfortable state. Additional Data Confirmation of as documented by pronouncing clinician: no pulse, no respirations and no heart sounds Family: contacted Additional persons at bedside: nursing staff Attending/PCP notified?: I am attending Was code activated?: No Autopsy requested?: No Advance directives?: No Hospice patient?: No Discharge Plan Discharge Patient Disposition: Condition: Stable Probable Cause of Probable cause of : Non-ST elevation myocardial infarction (NSTEMI) DS Attestations Time Spent in /Discharge Care*: greater than 30 min Quality - AMI: AMI present?: Yes Clinical Trial Participant: No Quality - Stroke: CVA present?: No Quality - VTE: VTE present?: No Deep Vein Thrombosis/Pulmonary Embolism Present on Admission: Yes Coding Level of Care Code Acute 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
== END 2022-09-23 11:03 | disposition expired ==
LOC: ER 17:04 → ICU 17:54
PROVIDERS: Internal Medicine; Admitting Provider Student in an Organized Health Care Education/Training Program; Emergency Provider Emergency Medicine; PCP Internal Medicine; Visit Provider Student in an Organized Health Care Education/Training Program
DX: I21.4 Non-ST elevation (NSTEMI) myocardial infarction (principal); J18.9 Pneumonia, unspecified organism; N18.6 End stage renal disease; I13.2 Hypertensive heart and chronic kidney disease with heart failure and with stage 5 chronic kidney disease, or end stage renal disease; I50.22 Chronic systolic (congestive) heart failure; J44.0 Chronic obstructive pulmonary disease with (acute) lower respiratory infection; R04.2 Hemoptysis; I47.20 Ventricular tachycardia, unspecified; I25.5 Ischemic cardiomyopathy; E11.22 Type 2 diabetes mellitus with diabetic chronic kidney disease; Z99.2 Dependence on renal dialysis; E83.119 Hemochromatosis, unspecified; Z88.1 Allergy status to other antibiotic agents; Z86.718 Personal history of other venous thrombosis and embolism; E78.2 Mixed hyperlipidemia; I25.2 Old myocardial infarction; I27.20 Pulmonary hypertension, unspecified; Z87.891 Personal history of nicotine dependence; Z51.5 Encounter for palliative care; I46.9 Cardiac arrest, cause unspecified
CPT/HCPCS: 36415; 36416; 71045; 71275; 74177; 80051; 80053; 80061; 82330; 82805; 82962; 83036; 83605; 83690; 83735; 83880; 84100; 84145; 84443; 84484; 85007; 85025; 85730; 87040; 87631; 87635; 87804; 93005; 94002; 94640; 94664; 94799; 96365; 96366; 96367; 96375; 99291; C8929; J0171; J0282; J0461; J0610; J1644; J1720; J2260; J2270; J2405; J2543; J2704; J3010; J3370; J3490; J7060; Q9956; Q9967